=== PATIENT | male | born 1975 | race Caucasian/White ===

== ENCOUNTER 2020-06-02 09:55 | Emergency (ER) | payer SELFPAY ==
[2020-06-02 10:07] VITALS: BP 143/93; PULSE 104; RESP 16; TEMP 36.2; O2SAT 100
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
== END 2020-06-02 11:00 | disposition home or self-care (01) ==
PROVIDERS: Emergency Provider Nurse Practitioner
DX: L97.512 Non-pressure chronic ulcer of other part of right foot with fat layer exposed (principal); L03.119 Cellulitis of unspecified part of limb; H40.9 Unspecified glaucoma; I10 Essential (primary) hypertension
CPT/HCPCS: 99213; G0463

== ENCOUNTER 2021-01-19 10:59 | Emergency (ER) | payer SELFPAY ==
[2021-01-19 11:11] VITALS: BP 139/91; PULSE 96; RESP 16; TEMP 36.2; O2SAT 98
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
== END 2021-01-19 11:57 | disposition home or self-care (01) ==
PROVIDERS: Emergency Provider Nurse Practitioner
DX: S81.802A Unspecified open wound, left lower leg, initial encounter (principal); X16.XXXA Contact with hot heating appliances, radiators and pipes, initial encounter; S61.402A Unspecified open wound of left hand, initial encounter; W25.XXXA Contact with sharp glass, initial encounter; H40.9 Unspecified glaucoma
CPT/HCPCS: 99213; G0463

== ENCOUNTER 2021-03-30 02:14 | Inpatient (IN) | payer MEDICAID, SELFPAY ==
--- NOTE | ~2021-03-30 | XR_ITS ---
EXAMINATION: XR foot LT min 3V DATE: 03/30/2021 02:35 INDICATION: Left foot pain. Infection. TECHNIQUE: Dorsoplantar, two oblique and lateral views of the left foot were obtained. COMPARISON: None. FINDINGS: Bone alignment is normal. No fracture. Lucent likely residual fixation screw tract projects over the distal tibia and fibula. Moderate osteoarthritis at the first metatarsophalangeal joint. Additional m ild polyarticular osteoarthritis at many of the remaining joints in the mid and forefoot. Diffuse sof t tissue swelling about the left foot. There is lucency projecting over the plantar soft tissues at t he first proximal phalanx suggesting a skin ulceration. No underlying cortical erosion or periosteal reaction to suggest osteomyelitis. IMPRESSION: 1. No findings to suggest osteomyelitis. 2. Polyarticular osteoarthritis, moderate at the first metatarsophalangeal joint and otherwise mild a t multiple joints the mid and forefoot. Reviewed, dictated and finalized at location A. IMPRESSION: 1. No findings to suggest osteomyelitis. 2. Polyarticular osteoarthritis, moderate at the first metatarsophalangeal join t and otherwise mild at multiple joints the mid and forefoot.
--- NOTE | ~2021-03-30 | CT_ITS ---
EXAMINATION: CT foot LT wo con DATE: 03/30/2021 04:46 INDICATION: Osteomyelitis with pain and ulceration at the great toe. TECHNIQUE: High resolution computed tomography (CT) of the left foot was performed without intravenou s contrast. Additional sagittal and coronal reconstructions were performed. Automated exposure contro l and iterative reconstruction technique were employed. The dose-length product was 449.06 mGy-cm. COMPARISON: Left foot radiographs dated 03/30/2021 FINDINGS: Bone alignment is normal. No fracture. Lucent screw tract extending obliquely across the lateral mall eolus into the distal tibia suggesting fixation for old trauma. Small amounts of heterotopic ossifica tion are seen along the deltoid ligament medially along the anterior talofibular and anterior and pos terior inferior tibiofibular ligaments suggesting sequela of chronic sprains. Achilles and plantar ca lcaneal enthesophytes. Polyarticular osteoarthritis, moderate severity at the first metatarsophalange al joint and mild at multiple additional joints in the mid and forefoot. Hypertrophic change at the f irst metatarsophalangeal joint along with a large dorsal sided osteophyte suggesting hallux rigidus w ith decreased range of motion. There appears be a skin ulceration plantar to the base of the first pr oximal phalanx. There is also loss of the nail with deep ulceration at the nailbed which closely appr oaches the surface of the bone. No cortical erosions or periosteal reaction to more specifically sugg est osteomyelitis. No radiopaque foreign bodies or soft tissue gas. IMPRESSION: 1. Deep ulceration at the nailbed of the distal phalanx of the great toe which closely approaches the bone but without evident cortical erosion or periosteal reaction to more specifically suggest osteom yelitis. 2. Old posttraumatic and postoperative changes at the left ankle. 3. Polyarticular osteoarthritis, moderate severity at the first metatarsophalangeal joint with likely secondary hallux rigidus. Reviewed, dictated and finalized at location A. IMPRESSION: 1. Deep ulceration at the nailbed of the distal phalanx of the great toe which closely approaches the bone but without evident cortical erosion or periosteal reaction to more specifically suggest osteomyelitis. 2. Old posttraumatic and postoperative changes at the left ankle. 3. Polyarticular osteoarthritis, moderate severity at the first metatarsophalan geal joint with likely secondary hallux rigidus.
[2021-03-30 02:17] VITALS: BP 165/110; PULSE 103; RESP 16; TEMP 36.8; O2SAT 100
--- NOTE | 2021-03-30 02:29 | PC.NURSE ---
X-ray to room at this time.
--- NOTE | 2021-03-30 02:41 | ED.EXTPRO ---
HPI - Extremity Problem General Chief complaint: Extremity Problem,Nontraumatic Stated complaint: left foot infection Time Seen by Provider: 03/30/21 02:17 Source: patient Mode of arrival: ambulatory Limitations: no limitations History of Present Illness HPI Narrative: Patient is a 45-year-old male complaining of left foot pain, swelling and redness that started 3 weeks ago but worse the past few days. Patient denies any injury to the area. Patient denies any calf pain or swelling. Patient denies any chest pain or shortness of breath. Patient denies fever or chills. Related Data Home Medications Medication Instructions Recorded Confirmed No Home Medications 03/30/21 03/30/21 Allergies Allergy/AdvReac Type Severity Reaction Status Date / Time No Known Allergies Allergy Verified 03/30/21 02:20 Review of Systems Review of Systems: All systems reviewed & are unremarkable except as noted in HPI and below Constitutional: Constitutional: Denies body ache(s), Denies chills, Denies excessive sweating, Denies fatigue, Denies fever(s), Denies headache(s), Denies lethargy, Denies malaise, Denies weakness and Denies weight loss Eyes: Eyes: Denies blurry vision, Denies change in vision and Denies loss of vision ENT: Denies dizziness, Denies ear discharge, Denies headache(s), Denies lip swelling, Denies epistaxis, Denies nasal congestion, Denies neck pain, Denies throat swelling and Denies tongue swelling Cardiovascular: Cardiovascular: Denies chest pain, Denies chest pain at rest, Denies chest pain with activity, Denies diaphoresis, Denies rapid heart rate, Denies edema, Denies irregular heart rhythm, Denies lightheadedness, Denies palpitations, Denies dyspnea and Denies dyspnea on exertion Respiratory: Respiratory: Denies chest congestion, Denies cough, Denies hemoptysis, Denies dyspnea and Denies dyspnea on exertion Gastrointestinal: Gastrointestinal: Denies abdominal pain, Denies melena, Denies hematochezia, Denies diarrhea, Denies nausea, Denies vomiting and Denies hematemesis Musculoskeletal: Musculoskeletal: Denies abnormal gait, Denies deformity, Denies limited range of motion, Denies neck pain and Denies numbness Neurologic: Denies Abnormal speech present, Denies abnormal gait, Denies confusion, Denies dizziness, Denies headache(s), Denies focal weakness, Denies loss of vision, Denies numbness, Denies Other visual disturbances, Denies Sensory deficit (Neuro) and Denies weakness Psychiatric: Psychiatric: Denies confusion, Denies depression, Denies auditory hallucinations, Denies homicidal ideation and Denies suicidal ideation Endocrine: Endocrine: Denies cold intolerance, Denies excessive sweating, Denies fatigue, Denies heat intolerance and Denies palpitations Hematologic/Lymphatic: Hematologic/Lymphatic: Denies easy bleeding and Denies easy bruising Allergic/Immunologic: Allergic/Immunologic: Denies lip swelling, Denies throat swelling and Denies tongue swelling PMFSH Past Medical History Medical History (Updated 03/30/21 @ 03:35 by Colten Basilio MD) Glaucoma Social History Social History Gender identity (if verbalized by the patient): Male Comments Past medical history: None Family history: None Social history: Non-smoker no EtOH or drug use Exam Const: General: cooperative, healthy appearing, comfortable, no acute distress, well developed, alert and awake; No confusion Orientation/consciousness: oriented to person, oriented to place, oriented to time, patient oriented x3 and No confusion Limitations: no limitations HENMT: Head: normal to inspection, normocephalic and atraumatic Ears: hearing grossly normal bilaterally, TM normal on the right and TM normal on the left General nose exam: Normal external nose present, Normal nares present and No nasal discharge present Face and sinus: normal facial exam Mouth: Yes Normal oral and palatal mucosa present, Yes lip normal, Yes tongue normal and Yes or
[2021-03-30 02:53] LABS: Basophils Absolute Auto 0.1 K/mm3 (0.0-0.1); Basophils Percent Auto 0.5 % (0.2-1.2); Eosinophils Absolute Auto 0.2 K/mm3 (0-0.3); Hematocrit 44.5 % (42.0-52.0); Immature Granulocyte Absolute 0.02 K/mm3 (0.00-0.031); Immature Granulocyte Percent A 0.2 % (0-0.5); Lymphocytes Absolute Auto 2.38 K/mm3 (0.9-3.2); Lymphocytes Percent Auto 25.6 % (18.3-44.2); Mean Corpuscular HGB Conc 33.7 g/dl (32-36); Mean Corpuscular Hemoglobin 28.1 pg (26-34); Mean Corpuscular Volume 83.5 fl (80-100); Mean Platelet Volume 9.6 fl (7.4-10.4); Monocytes Absolute Auto 0.8 K/mm3 (0.1-0.6); Monocytes Percent Auto 8.1 % (2.6-8.5); Neutrophils Absolute Auto 5.9 K/mm3 (1.3-6.7); Neutrophils Percent Auto 63.6 % (45.5-73.1); Platelet Count Result 292 k/mm3 (150-375); Red Blood Count 5.33 M/mm3 (4.6-6.20); White Blood Count 9.3 K/mm3 (4.5-10.0)
[2021-03-30 03:01] VITALS: BP 145/93; O2SAT 99
[2021-03-30 03:05] LABS: Anion Gap 10 mmol/L (8-16); Blood Urea Nitrogen 9 mg/dL (9-20); Calcium 9.2 mg/dL (8.4-10.2); Carbon Dioxide 28 mmol/L (22-30); Chloride 97 mmol/L (98-107); Estimated CRCL calculation 142 ml/min; Estimated Glomerular Filt Rate > 60; Glucose 387 mg/dL (75-110); Lactic Acid Reflex 1.3 mmol/L (0.7-2.1); Potassium 4.1 mmol/L (3.4-5.0); Sodium 135 mmol/L (137-145)
[2021-03-30] MEDS: SODIUM CHLORIDE 0.9% IV 1,000 ML 999 ML IV CONT (03:52)
[2021-03-30 04:02] VITALS: BP 145/93; PULSE 99; RESP 16; O2SAT 99
--- NOTE | 2021-03-30 04:13 | PC.NURSE ---
Blood cultures drawn from two separate sites.
--- NOTE | 2021-03-30 04:35 | PC.NURSE ---
pt to CT at this time
--- NOTE | 2021-03-30 04:56 | PM.IMHP ---
H&P: HPI History of Present Illness Date/Time: 03/30/21 04:56 Chief Complaint: TOE WOUND Narrative: THIS IS A 45-YEAR-OLD MALE WITH NO SIGNIFICANT PAST MEDICAL HISTORY HOWEVER PATIENT STATES THAT HE HAS NOT BEEN TO THE DOCTOR IN YEARS. HE PRESENTED TO THE EMERGENCY ROOM DUE TO LEFT 5TH TOE WOUND WITH DISCHARGE AND DISCOLORATION THAT HAS BEEN PRESENT FOR THE LAST COUPLE OF WEEKS PATIENT STATES THAT IT STARTED WITH A WOUND AND IT PROGRESSIVELY GOT SWOLLEN AND A DISCHARGE STARTED TO OOZE. PATIENT STATES THAT HE HAS BEEN VERY THIRSTY HAS HAD SIGNIFICANT WEIGHT LOSS IN THE LAST YEAR OR SO AND HAS HAD DECREASED APPETITE HE MIGHT HAVE HAD SOME CHILLS WELL NO NAUSEA NO VOMITING NO DIARRHEA NO ABDOMINAL PAIN NO COUGH NO SPUTUM PRODUCTION NO SHORTNESS OF BREATH. Review of Systems Review of Systems: Narrative: TOE WOUND SWELLING DISCOLORATION AND DISCHARGE Constitutional: Constitutional: Reports chills, Denies fatigue, Reports fever(s), Denies lethargy and Denies malaise Eyes: Eyes: Denies change in vision ENT: Denies nasal congestion, Denies nasal discharge and Denies nasal obstruction Cardiovascular: Cardiovascular: Denies irregular heart rhythm, Denies claudication, Denies leg edema, Denies lightheadedness, Denies radiating jaw, neck or arm pain, Denies palpitations, Denies dyspnea and Denies dyspnea on exertion Respiratory: Respiratory: Denies cough and Denies dyspnea Gastrointestinal: Gastrointestinal: Denies abdominal pain, Denies diarrhea, Denies nausea and Denies vomiting Genitourinary: Genitourinary: Reports no additional male genitourinary complaints Musculoskeletal: Musculoskeletal: Reports joint swelling Comments: LEFT 5TH TOE SWELLING AND DISCHARGE Integumentary/Breasts: Skin/Breast: Reports erythema and Reports skin ulcer Neurologic: Reports system reviewed and no additional complaints, except as documented Psychiatric: Psychiatric: Reports no additional psychiatric complaints Endocrine: Comments: THIRST, WEIGHT LOSS, POLYURIA. Hematologic/Lymphatic: Hematologic/Lymphatic: Reports no additional hematologic/lymphatic complaints Allergic/Immunologic: Allergic/Immunologic: Reports no additional allergic/immunologic complaints [facility] Past Medical History Medical History (Updated 03/30/21 @ 05:05 by Tremayne Hernandez MD) Glaucoma Social History Social History Alcohol intake: never Substance use: never Gender identity (if verbalized by the patient): Male Spiritual care concerns: No Meds Home Medications and Allergies Home Medications Medication Instructions Recorded Confirmed Type No Home Medications 03/30/21 03/30/21 History Allergies Allergy/AdvReac Type Severity Reaction Status Date / Time No Known Allergies Allergy Verified 03/30/21 02:20 Vital Signs Vital Signs - 24 hr 03/30/21 02:17 03/30/21 04:02 Temperature 98.2 F Pulse Rate 103 H 99 Respiratory Rate 16 16 Blood Pressure 165/110 H 145/93 H Pulse Oximetry 100 99 Exam Narrative: Exam Narrative: PATIENT IS SITTING IN [facility] Const: General: cooperative, comfortable, no acute distress, well developed, alert, awake, ill appearing chronically and other Nutritional Appearance: average body habitus Orientation/consciousness: patient oriented x3 HENMT: Head: normal to inspection, normocephalic and atraumatic Ears: hearing grossly normal bilaterally General nose exam: Normal external nose present Face and sinus: normal facial exam Eyes: General: appearance normal, both eyes and all related structures Alignment and Position: alignment normal Pupils: Equal, round and reactive pupils present EOM: EOMs intact bilaterally Neck: Neck: full ROM, no lymphadenopathy and no JVD Thyroid: thyroid normal Lymphatic: no lymphadenopathy noted Resp: Effort & Inspection: normal respiratory effort and able to speak in complete sentences Auscultation: clear to auscultation bilaterally Cardio: Jugular venous distension:
--- NOTE | 2021-03-30 04:57 | ADMGEN ---
This patient, Kain Montejo, was admitted to [facility] Surg Room 328-01. Patient/family oriented to hospital policies and general routines including ID bracelet, bed and alarms, visiting hours, pain management, procedures, bathroom and other care routines, personal items, smoking policy, room service/diet, and visiting hours. Information on how to activate the Rapid Response Team has been discussed. Patient/Family are encouraged to report perceived risks to care and to ask questions if they do not understand what they are told or what they should do.
[2021-03-30 05:01] VITALS: BP 136/90; PULSE 90; RESP 18; TEMP 36.6; O2SAT 100; BMI 28.8
[2021-03-30] MEDS: AZTREONAM 1 GM in DEXTROSE 5% IN WATER 50 ML 100 ML IVPB ×2 (05:38→12:32)
[2021-03-30] MEDS: LACTATED RINGERS 1,000 ML 150 ML IV CONT (05:38)
[2021-03-30 08:00] LABS: Glucose Point of Care 278 mg/dl (65-105)
[2021-03-30] MEDS: INSULIN ASPART (*BKC) 100 UNITS/ML SUB-Q ×5 (08:42→17:14)
[2021-03-30 09:16] LABS: Hemoglobin A1C 13.5 % (<5.7)
[2021-03-30] MEDS: LACTATED RINGERS 1,000 ML 100 ML IV CONT ×3 (10:20→22:45)
[2021-03-30 11:54] LABS: Glucose Point of Care 276 mg/dl (65-105)
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
--- NOTE | 2021-03-30 13:04 | PCDIET ---
Nutrition consult for Diabetic education. Patient was given Diabetic Management booklet today. We discussed a few food options. Patient just admitted early this morning. Discussed with him, RD would continue education tomorrow. I called Training Designer, who is also aware of consult.
--- NOTE | 2021-03-30 13:24 | WPDINFPN2 ---
Progress Note: A&P Assessment and Plan (1) Cellulitis of foot, left: Code(s): L03.116 - Cellulitis of left lower limb Status: Acute Assessment and Plan: 1. Left foot cellulitis due to #2 2. Acute OM of 5th toe 3. New onset DM REC Ctx #1. If he has toe amputation, convert to oral cefdinir post op. If no surgical resection, then 6 weeks IV Ctx, with no guarantee of cure. Subjective Date/time seen: 03/30/21 13:24 Objective Data Vital Signs Vital Signs: Vital Signs - 24 hr 03/30/21 02:17 03/30/21 03:01 03/30/21 04:02 Temperature 36.8 C Pulse Rate 103 H 99 Respiratory Rate 16 16 Blood Pressure 165/110 H 145/93 H 145/93 H Pulse Oximetry 100 99 99 03/30/21 05:01 Temperature 36.6 C Pulse Rate 90 Respiratory Rate 18 Blood Pressure 136/90 Pulse Oximetry 100 Intake/Output Intake/Output: Intake & Output 03/27/21 03/28/21 03/29/21 03/30/21 23:59 23:59 23:59 23:59 Intake Total 3660 Output Total 700 Balance 2960 Meds/Results Medications: Active Medications Generic Name Dose Route Start Last Admin Trade Name Freq PRN Reason Stop Dose Admin Dextrose 12.5 gm 03/30/21 10:09 Dextrose 50% 25 Gm/50 Ml Syringe IV PUSH PRN PRN Hypoglycemia Protocol Glucagon 1 mg 03/30/21 10:09 Glucagon For Inj 1 Mg Vial IM PRN PRN Hypoglycemia Protocol Glucose 15 gm 03/30/21 10:09 Glucose Oral Gel 15 Gm Of Glucse In 37.5 Gm Tube PO PRN PRN Hypoglycemia Protocol Lactated Ringer's 1,000 mls @ 100 mls/hr 03/30/21 03:40 03/30/21 12:35 Lr - Lactated Ringers Iv IV CONT 100 mls/hr .Q10H ARLEEN Administration Aztreonam 1 gm/ Dextrose 50 mls @ 100 mls/hr 03/30/21 05:00 03/30/21 12:32 IVPB 100 mls/hr Q8H ARLEEN Administration Dextrose 1,000 mls @ 100 mls/hr 03/30/21 10:09 Dextrose 5% 1,000 Ml IVPB PRN PRN Hypoglycemia Protocol Insulin Aspart 5 units 03/30/21 08:00 03/30/21 12:28 Insulin Aspart (*Bkc) 100 Units/Ml 0.05 units/kg (5 units) 5 units SUB-Q Administration [facility] Insulin Aspart 3 - 6 units 03/30/21 12:00 03/30/21 12:28 Insulin Aspart (*Bkc) 100 Units/Ml SUB-Q 4 units [facility] Administration Protocol Insulin Glargine 20 units 03/30/21 21:00 Insulin Glargine (*Bkc) 100 Units/Ml SUB-Q HS [facility] Radiology Results: ITS Impressions Foot X-Ray 03/30/21 07:15 IMPRESSION: 1. No findings to suggest osteomyelitis. 2. Polyarticular osteoarthritis, moderate at the first metatarsophalangeal joint and otherwise mild at multiple joints the mid and forefoot. Foot CT 03/30/21 07:21 IMPRESSION: 1. Deep ulceration at the nailbed of the distal phalanx of the great toe which closely approaches the bone but without evident cortical erosion or periosteal reaction to more specifically suggest osteomyelitis. 2. Old posttraumatic and postoperative changes at the left ankle. 3. Polyarticular osteoarthritis, moderate severity at the first metatarsophalangeal joint with likely secondary hallux rigidus. Labs Labs: Laboratory Results - last 24 hr 03/30/21 03/30/21 03/30/21 02:46 02:46 02:46 WBC 9.3 RBC 5.33 Hgb 15.0 Hct 44.5 MCV 83.5 MCH 28.1 MCHC 33.7 RDW 12.0 Plt Count 292 MPV 9.6 Immature Gran % (Auto) 0.2 Neut % (Auto) 63.6 Lymph % (Auto) 25.6 Craig % (Auto) 8.1 Eos % (Auto) 2.0 Baso % (Auto) 0.5 Lymph # (Auto) 2.38 Craig # (Auto) 0.8 H Eos # (Auto) 0.2 Baso # (Auto) 0.1 Abs Immat Gran (auto) 0.02 Absolute Neuts (auto) 5.9 Absolute Nucleated RBC 0.0 Nucleated RBC % 0.0 Sodium 135 L Potassium 4.1 Chloride 97 L Carbon Dioxide 28 Anion Gap 10 BUN 9 Creatinine 0.60 L Estim Creat Clear Calc 142 Estimated GFR > 60 Glucose 387 H POC Capillary Glucose Hemoglobin A1c Lactic Acid 1.3 Calcium 9.2 03/30/21 03/30/21 03/30/21
[2021-03-30 14:00] VITALS: BP 134/80; PULSE 89; RESP 12; TEMP 37.3; O2SAT 98
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
[2021-03-30 17:03] LABS: Glucose Point of Care 265 mg/dl (65-105)
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
[2021-03-30] MEDS: INSULIN GLARGINE (*BKC) 100 UNITS/ML 20 UNITS SUB-Q (20:58)
[2021-03-30 21:25] LABS: Glucose Point of Care 243 mg/dl (65-105)
[2021-03-30 22:00] VITALS: BP 123/92; PULSE 93; RESP 16; TEMP 37.6; O2SAT 96
[2021-03-30] MEDS: ACETAMINOPHEN 325 MG TABLET 650 MG PO (22:44)
[2021-03-31 06:00] VITALS: BP 132/68; PULSE 88; RESP 16; TEMP 37.2; O2SAT 100
[2021-03-31 06:21] LABS: Hematocrit 39.2 % (42.0-52.0); Hemoglobin 13.5 g/dL (14.0-18.0); Mean Corpuscular HGB Conc 34.4 g/dl (32-36); Mean Corpuscular Hemoglobin 28.1 pg (26-34); Mean Corpuscular Volume 81.7 fl (80-100); Mean Platelet Volume 9.3 fl (7.4-10.4); Platelet Count Result 260 k/mm3 (150-375); Red Cell Distribution Width 11.7 % (11.5-14.5); White Blood Count 9.3 K/mm3 (4.5-10.0)
[2021-03-31 06:37] LABS: Anion Gap 8 mmol/L (8-16); Blood Urea Nitrogen 8 mg/dL (9-20); Calcium 8.4 mg/dL (8.4-10.2); Carbon Dioxide 23 mmol/L (22-30); Chloride 103 mmol/L (98-107); Estimated CRCL calculation 167 ml/min; Estimated Glomerular Filt Rate > 60; Glucose 236 mg/dL (75-110); Magnesium 1.6 mg/dL (1.6-2.3); Potassium 3.8 mmol/L (3.4-5.0); Sodium 134 mmol/L (137-145)
[2021-03-31 07:50] LABS: Glucose Point of Care 230 mg/dl (65-105)
[2021-03-31] MEDS: MAGNESIUM SULF 2 GM/WATER 50ML 2 GM/50 ML BAG IVPB (08:14)
[2021-03-31] MEDS: INSULIN ASPART (*BKC) 100 UNITS/ML SUB-Q ×5 (08:18→17:36)
[2021-03-31] MEDS: LACTATED RINGERS 1,000 ML 100 ML IV CONT (08:20)
[2021-03-31] MEDS: ACETAMINOPHEN 325 MG TABLET 650 MG PO (08:27)
[2021-03-31 10:37] VITALS: O2SAT 98
--- NOTE | 2021-03-31 11:05 | PCDIET ---
Visited patient again this morning. Patient asked more questions today regarding diet. All questions discussed. He has been reading through the diabetic management booklet. I will visit again before discharge.
[2021-03-31 12:02] LABS: Glucose Point of Care 189 mg/dl (65-105)
[2021-03-31 13:34] LABS: Magnesium 1.6 mg/dL (1.6-2.3)
[2021-03-31 14:00] VITALS: BP 143/93; PULSE 90; RESP 20; TEMP 37.3; O2SAT 100
--- NOTE | 2021-03-31 16:29 | PM.PNORT ---
Progress Note: A&P Assessment and Plan (1) Osteomyelitis of toe of left foot: Code(s): M86.9 - Osteomyelitis, unspecified Status: Acute Assessment and Plan: 45-year-old gentleman with history of nonhealing wounds and ulcers bilateral feet, right leg, right elbow. Most recently small toe left foot nonhealing for the past 4 weeks. Patient with undiagnosed diabetes, hemoglobin A1c greater than 13. Discussed condition with the patient. Complications from medical comorbidities of diabetes, neuropathy possible arterial insufficiency reviewed. Mild worsening of appearance of small toe since admission and intravenous antibiotics. Patient desires operative treatment. Discussed nonoperative and operative treatment options with the patient. Risks and benefits of each as well as alternatives were reviewed. All of the patient's questions were answered. The risks of surgery reviewed including but not limited to: Neurovascular damage, wound complication, infection, blood clot, pulmonary embolus, stroke, myocardial infarction, and anesthetic risks up to and including . Continued pain and possible dysfunction were explained. Specific risks of the procedure including later recurrence of deformity. No guarantees were offered. If hardware used, discussed risk of failure/ breakage and possible need for removal. If complications occur, the patient understands the need for further treatment, possible further surgery. Patient verbalizes understanding and wishes to proceed. PLAN: Debridement left diabetic foot infection / ulcer, amputation left small toe. (2) Ulcer of left fifth toe due to diabetes mellitus: Code(s): E11.621 - Type 2 diabetes mellitus with foot ulcer; L97.529 - Non-pressure chronic ulcer of other part of left foot with unspecified severity Status: Acute (3) Type 2 diabetes mellitus: Qualifiers: Diabetes mellitus assisted insulin use: without assisted use Diabetes mellitus complication status: with skin complications Diabetes mellitus complication detail: with foot ulcer Qualified Code(s): E11.621 - Type 2 diabetes mellitus with foot ulcer; L97.509 - Non-pressure chronic ulcer of other part of unspecified foot with unspecified severity Code(s): E11.9 - Type 2 diabetes mellitus without complications Status: Acute Subjective Subjective Date/Time Seen: 03/31/21 16:29 Principal diagnosis: Left diabetic foot infection with osteomyelitis Interval history: patient seen and examined. Orthopedic consultation, assessment and plan reviewed. Left foot radiographs and left foot CT scan reviewed. Patient states small toe slightly worse compared to presentation to the emergency room. Denies pain. Review of Systems Constitutional: Constitutional: Denies chills and Denies fever(s) Eyes: Eyes: Reports no additional eye complaints and Denies change in vision ENT: Reports system reviewed and no additional complaints, except as documented and Reports Normal hearing present Cardiovascular: Cardiovascular: Denies chest pain, Denies diaphoresis, Denies leg ulcers and Denies dyspnea on exertion Respiratory: Respiratory: Reports no additional respiratory complaints, Denies cough and Denies dyspnea on exertion Gastrointestinal: Gastrointestinal: Reports no additional gastrointestinal complaints, Denies abdominal pain, Denies constipation, Denies nausea and Denies vomiting Genitourinary: Genitourinary: Reports no additional male genitourinary complaints, Denies hematuria and Denies urinary frequency Musculoskeletal: Musculoskeletal: Reports no additional musculoskeletal complaints and Reports as per HPI Integumentary/Breasts: Skin/Breast: Reports as per HPI, Reports lesions, Reports new lesions and Reports skin ulcer Neurologic: Reports Normal hearing present Endocrine: Endocrine: Reports no additional endocrine complaints, Denies change in body appearance, Denies excessive sweating, Denies p
[2021-03-31 17:25] LABS: Glucose Point of Care 260 mg/dl (65-105)
--- NOTE | 2021-03-31 17:46 | PM.IMPN ---
Progress Note: A&P Assessment and Plan (1) Ulcer of left fifth toe due to diabetes mellitus: Code(s): E11.621 - Type 2 diabetes mellitus with foot ulcer; L97.529 - Non-pressure chronic ulcer of other part of left foot with unspecified severity Status: Acute Assessment and Plan: Patient presents with wound to left 5th toe. 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 Wounds started from blisters to some of his toes after wearing new sandals [place]. Imaging shows evidence of acute osteomyelitis to left 5th toe. Appreciate orthopedic surgery recommendations. Dr Ladd plans for OR in the AM 7/ for debridement and L 5th toe amputation. Appreciate infectious disease recommendations. He was started on aztreonam and vancomycin on admission which Dr Izaguirre has consolidated to monotherapy with IV Rocephin (day 2). Blood cultures pending with no growth to date. Will continue working on tight glycemic control. Local wound care until surgery. (2) Cellulitis of foot, left: Code(s): L03.116 - Cellulitis of left lower limb Status: Acute Assessment and Plan: Secondary to above, see above. Some GI upset with soft BM may be related to antibiotics. Added probiotic. (3) Type 2 diabetes mellitus: Qualifiers: Diabetes mellitus veterinary surgeon insulin use: without veterinary surgeon use Diabetes mellitus complication status: with skin complications Diabetes mellitus complication detail: with foot ulcer Qualified Code(s): E11.621 - Type 2 diabetes mellitus with foot ulcer; L97.509 - Non-pressure chronic ulcer of other part of unspecified foot with unspecified severity Code(s): E11.9 - Type 2 diabetes mellitus without complications Status: Acute Assessment and Plan: New diagnosis. Likely been ongoing for a period of time given his significant neuropathy. Hgb A1c 13.5%. Detailed discussion held regarding his new diagnosis including the importance of blood glucose monitoring, establishing care with a PCP, and insulin use. Appreciate diabetic educator consultation as well. Continue basal-bolus regimen with Lantus and Novolog and increase as needed. Continue to monitor with accu-cheks and adjust treatment as needed, cover with SSI. NPO at midnight for surgery but since he is going to OR early, plan to continue Lantus this evening (at a decreased dose) since his sugars have been so high. Discussed the importance of tight glycemic control to help promote wound healing. (4) Weight loss: Code(s): R63.4 - Abnormal weight loss Status: Acute Assessment and Plan: Suspect related to undiagnosed/untreated diabetes. No abdominal pain/nausea/vomiting. Subjective Date/time seen: 03/31/21 17:00 Interval history: Mr. Montejo is a pleasant 45yo M admitted with left 5th toe OM and newly diagnosed diabetes. Feels okay today, no acute events overnight. Didn't sleep much last night otherwise offers no complaints. Denies chest pain, shortness of breath, nausea or vomiting. Says he has a bit of stomach upset that he has a hard time describing - not abd pain/cramping or nausea but had a loose BM this afternoon. Review of Systems Review of Systems: All systems reviewed & are unremarkable except as noted in HPI and below Exam Narrative: Exam Narrative: General: Male resting comfortably supine in bed in no acute distress. HEENT: Normocephalic, EOMI, oral mucosa moist. Cardiovascular: Rate and rhythm are regular. Respiratory: Lungs clear to auscultation bilaterally. Respirations even and non-labored. Tolerating room air. Abdomen: Soft, non-tender, non-distended, bowel sounds present. Extremities: L foot dressing by surgery not removed for my exam today, wound underneath as descri
[2021-03-31] MEDS: SACCHAROMYCES BOULARDII 250 MG CAPSULE PO (18:55)
[2021-03-31 20:00] VITALS: PULSE 96; RESP 18; O2SAT 100
[2021-03-31] MEDS: INSULIN GLARGINE (*BKC) 100 UNITS/ML 15 UNITS SUB-Q (21:16)
[2021-03-31 21:38] LABS: Glucose Point of Care 219 mg/dl (65-105)
[2021-03-31 21:57] VITALS: BP 142/90; PULSE 96; RESP 18; TEMP 36.8; O2SAT 100
[2021-04-01] VITALS (14 sets, daily range): BP systolic 106–151; BP diastolic 67–99; PULSE 78–96; RESP 12–20; TEMP 36.2–37.1; O2SAT 96–100
[2021-04-01 06:15] LABS: Alanine Aminotransferase 11 U/L (4-50); Albumin Level 3.4 g/dL (3.5-5.1); Alkaline Phosphatase 67 U/L (38-126); Anion Gap 6 mmol/L (8-16); Aspartate Amino Transferase 14 U/L (17-59); Bilirubin,Total 0.7 mg/dL (0.2-1.3); Blood Urea Nitrogen 9 mg/dL (9-20); Calcium 8.5 mg/dL (8.4-10.2); Carbon Dioxide 27 mmol/L (22-30); Chloride 104 mmol/L (98-107); Estimated CRCL calculation 142 ml/min; Estimated Glomerular Filt Rate > 60; Glucose 189 mg/dL (75-110); Magnesium 1.8 mg/dL (1.6-2.3); Potassium 3.8 mmol/L (3.4-5.0); Sodium 137 mmol/L (137-145)
[2021-04-01 06:28] LABS: Hematocrit 41.9 % (42.0-52.0); Hemoglobin 13.8 g/dL (14.0-18.0); Mean Corpuscular HGB Conc 32.9 g/dl (32-36); Mean Corpuscular Hemoglobin 27.4 pg (26-34); Mean Corpuscular Volume 83.3 fl (80-100); Mean Platelet Volume 9.4 fl (7.4-10.4); Platelet Count Result 287 k/mm3 (150-375); Red Blood Count 5.03 M/mm3 (4.6-6.20); Red Cell Distribution Width 12.1 % (11.5-14.5); White Blood Count 7.3 K/mm3 (4.5-10.0)
--- NOTE | 2021-04-01 07:12 | WPDHPUPDATE1 ---
History and Physical Update Update Date/Time: 04/01/21 07:12 History and Physical has been reviewed, including an updated exam of the patient. There are NO changes in the patient's condition. Risks, benefits, and alternatives have been discussed and questions answered. Patient agrees to proceed with procedure.
[2021-04-01 07:49] LABS: Glucose Point of Care 201 mg/dl (65-105)
--- NOTE | 2021-04-01 07:57 | WPDANESEPPF ---
Anes - Initial Pre Proc Eval Procedure: Operation Date: 04/01/21 09:00 Proposed Procedures p Debridement Left Diabetic Foot With Amputation Small Toe - Akbar Ladd MD Date/Time: 04/01/21 07:57 Surgeon: CIARA Ibrahim Pre Op Diagnosis: left foot cellulitis, hyperglycemia Patient Data Age: 45 Gender: M Height: 1.83 m Weight: 96.2 kg Last Vital Signs Temp 36.2 C L 04/01/21 07:38 Pulse 87 04/01/21 07:38 Resp 16 04/01/21 07:38 BP 134/72 04/01/21 07:38 Pulse Ox 100 04/01/21 07:38 Allergies Allergy/AdvReac Type Severity Reaction Status Date / Time No Known Allergies Allergy Verified 03/30/21 09:54 Home Medications Medication Instructions Recorded Confirmed Type No Home Medications 03/30/21 03/30/21 History Laboratory Tests 03/31/21 03/31/21 03/31/21 06:01 12:00 17:20 WBC RBC Hgb Hct MCV MCH MCHC RDW Plt Count MPV Sodium Potassium Chloride Carbon Dioxide Anion Gap BUN Creatinine Estim Creat Clear Calc Estimated GFR Glucose POC Capillary Glucose 189 mg/dl H mg/dl 260 mg/dl H mg/dl (65-105) (65-105) Calcium Magnesium 1.6 mg/dL mg/dL (1.6-2.3) Total Bilirubin AST ALT Alkaline Phosphatase Total Protein Albumin 03/31/21 04/01/21 04/01/21 21:14 05:44 05:44 WBC 7.3 K/mm3 K/mm3 (4.5-10.0) RBC 5.03 M/mm3 M/mm3 (4.6-6.20) Hgb 13.8 g/dL L g/dL (14.0-18.0) Hct 41.9 % L % (42.0-52.0) MCV 83.3 fl fl (80-100) MCH 27.4 pg pg (26-34) MCHC 32.9 g/dl g/dl (32-36) RDW 12.1 % % (11.5-14.5) Plt Count 287 k/mm3 k/mm3 (150-375) MPV 9.4 fl fl (7.4-10.4) Sodium 137 mmol/L mmol/L (137-145) Potassium 3.8 mmol/L mmol/L (3.4-5.0) Chloride 104 mmol/L mmol/L (98-107) Carbon Dioxide 27 mmol/L mmol/L (22-30) Anion Gap 6 mmol/L L mmol/L (8-16) BUN 9 mg/dL mg/dL (9-20) Creatinine 0.60 mg/dL L mg/dL (0.7-1.3) Estim Creat Clear Calc 142 ml/min ml/min Estimated GFR > 60 (59 - ) Glucose 189 mg/dL H mg/dL (75-110) POC Capillary Glucose 219 mg/dl H mg/dl (65-105) Calcium 8.5 mg/dL mg/dL (8.4-10.2) Magnesium 1.8 mg/dL mg/dL (1.6-2.3) Total Bilirubin 0.7 mg/dL mg/dL (0.2-1.3) AST 14 U/L L U/L (17-59) ALT 11 U/L U/L (4-50) Alkaline Phosphatase 67 U/L U/L (38-126) Total Protein 7.0 g/dL g/dL (6.3-8.2) Albumin 3.4 g/dL L g/dL (3.5-5.1) 04/01/21 07:46 WBC RBC Hgb Hct MCV MCH MCHC RDW Plt Count MPV Sodium Potassium Chloride Carbon Dioxide Anion Gap BUN Creatinine Estim Creat Clear Calc Estimated GFR Glucose POC Capillary Glucose 201 mg/dl H mg/dl (65-105) Calcium Magnesium Total Bilirubin AST ALT Alkaline Phosphatase Total Protein Albumin Patient hx anesthesia problems: none Family hx anesthesia problems: none PMFSH Past Medical History Medical History Callus of foot Glaucoma Osteomyelitis of toe of left foot Surgical History Surgical History (Updated 04/01/21 @ 07:57 by Andrew Luke MD) History of ankle surgery Social History Social History Social History: Patient works for a [employer]
[2021-04-01] MEDS: LACTATED RINGERS 1,000 ML 30 ML IV CONT (08:00)
[2021-04-01] MEDS: BUPIVACAINE HCL 0.5% PF 30 ML VIAL INFILTRATE (09:30)
--- NOTE | 2021-04-01 10:11 | W.PM.PROC2 ---
Procedure Note - Detailed Date of Procedure 04/01/21 Pre-op Diagnosis left foot cellulitis, hyperglycemia, Osteomyelitis small toe, diabetic foot ulcer Post-op Diagnosis same Procedure Performed left foot 5th ray amputation, excisional debridement of diabetic left foot ulcer x2 including muscle layer 1.5 x 1.1 cm by 0.5 cm depth and 0.5 x 0.5 cm. Surgeon Akbar Ladd MD Pediatric Sports Medicine Specialist telecom assistant Anesthesia general Indications 45-year-old gentleman with newly diagnosed and untreated diabetes and peripheral neuropathy admitted with left small toe osteomyelitis and multiple diabetic foot ulcers. No improvement with course of intravenous antibiotics. Presents now for operative treatment. Findings Wet gangrene and osteomyelitis of the left small toe. 1.5 x 1.1 x 0.5 cm ulcer plantar hallux involving the sub fascial muscle layer, 0.5 x 0.5 x 0.2 cm ulcer plantar heel. Large callus right medial hallux. Description of Procedure What was done: Patient identified in the preoperative holding. Informed consent given. Operative extremity marked. Patient received intravenous antibiotics. Patient brought to the operating room where underwent general anesthetic by anesthesia team. Positioned supine on operating room table. Time-out performed confirming the patient, site of the surgery and the plan. left foot prepped draped usual sterile surgical fashion using a Betadine prep solution. The small toe was nearly completely involved with wet gangrene and osteomyelitis. In order to provide soft tissue coverage a ray amputation was indicated. A longitudinal incision made over the dorsal lateral aspect of the distal 5th metatarsal of the left foot with a 15 blade knife. The toe was then ellipsed. Dissection carried down to the metatarsal and retractors placed. Bone cutter used to transect the 5th metatarsal in the midportion. The metatarsal and toe were then dissected from the surrounding soft tissue and brought out is a single specimen which was passed off. Any devitalized or infected tissue was also sharply debrided. Bleeding was controlled with electrocautery. Wound thoroughly irrigated with antibiotic solution and skin approximated with 2 0 Prolene interrupted suture. A 15 blade knife used to debride sharply the plantar hallux and plantar heel ulcers including skin, subcutaneous tissue and muscle. Any nonviable or devitalized tissue was sharply excised and passed off. Wounds thoroughly irrigated. Small bone cutter was used to trim the excess nail growth from toes 2 through 4. Fifteen blade knife used to debride the callus from the right foot hallux medial aspect down to healthy tissue. Small bone cutter used to trim toenails 2 through 5. Sterile dressing applied. The patient was then woken from anesthesia, extubated and taken to the recovery room in stable condition. All sponge, needle, instrument counts were correct at the end of the case. Implants None Estimated Blood Loss 20 Tourniquet Time 0 Urine Output 700 Drains No Packing Yes Pathology yes ( left 5th ray) Complications None Condition stable Disposition PACU
[2021-04-01] MEDS: KCL 20 MEQ/D5/0.45% SOD CHL 1,000 ML 80 ML IV CONT ×2 (11:32→23:28)
--- NOTE | 2021-04-01 11:46 | PC.NURSE ---
To OR per bed at 0730, IV saline locked. Report given to SURAJ Street.
--- NOTE | 2021-04-01 11:47 | PC.NURSE ---
Returned from OR per bed at 1050. Report received from SURAJ Alfredo.
[2021-04-01 11:58] LABS: Glucose Point of Care 210 mg/dl (65-105)
[2021-04-01 12:02] LABS: Glucose Point of Care 202 mg/dl (65-105)
--- NOTE | 2021-04-01 12:25 | PM.IMPN ---
Progress Note: A&P Assessment and Plan (1) Ulcer of left fifth toe due to diabetes mellitus: Code(s): E11.621 - Type 2 diabetes mellitus with foot ulcer; L97.529 - Non-pressure chronic ulcer of other part of left foot with unspecified severity Status: Acute Assessment and Plan: Patient presents with wound to left 5th toe. He noted wound a few weeks ago, acutely worsening over last 1 week MOLD SANDER. Wounds started from blisters to some of his toes after wearing new sandals while on [place] the river. CT showed evidence of acute osteomyelitis to left 5th toe. He just returned from PACU POD#0 s/p left 5th toe amputation, excisional debridement of 2 other left foot ulcers and debridement of large callus medial right great toe. Appreciate infectious disease recommendations. Continue IV Rocephin (day 3). Blood cultures pending with no growth to date. Will continue working on tight glycemic control. Wound care, weight bearing status, PT/OT per ortho surgery recommendations. (2) Cellulitis of foot, left: Code(s): L03.116 - Cellulitis of left lower limb Status: Acute Assessment and Plan: Secondary to above, see above. Some GI upset with soft BM may be related to antibiotics. Added probiotic. (3) Type 2 diabetes mellitus: Qualifiers: Diabetes mellitus intermediate card tender insulin use: without detention use Diabetes mellitus complication status: with skin complications Diabetes mellitus complication detail: with foot ulcer Qualified Code(s): E11.621 - Type 2 diabetes mellitus with foot ulcer; L97.509 - Non-pressure chronic ulcer of other part of unspecified foot with unspecified severity Code(s): E11.9 - Type 2 diabetes mellitus without complications Status: Acute Assessment and Plan: New diagnosis. Likely been ongoing for a period of time given his significant neuropathy. Hgb A1c 13.5%. Detailed discussion held regarding his new diagnosis including the importance of blood glucose monitoring, establishing care with a PCP, and insulin use. Appreciate peer educator consultation as well. Continue basal-bolus regimen with Lantus and Novolog, increase today. Continue to monitor with accu-cheks and adjust treatment as needed, cover with SSI. Discussed the importance of tight glycemic control to help promote wound healing. (4) Weight loss: Code(s): R63.4 - Abnormal weight loss Status: Acute Assessment and Plan: Suspect related to undiagnosed/untreated diabetes. No abdominal pain/nausea/vomiting. Subjective Date/time seen: 04/01/21 1145 Interval history: Mr. Montejo is a pleasant 45yo M admitted with left 5th toe OM and newly diagnosed diabetes. He is seen shortly after returning from the OR, reports he is feeling okay. He is tired but not in any pain, denies nausea or vomiting. No chest pain. Clear liquid tray at his bedside table but he is not hungry yet. No other complaints at this time. Review of Systems Review of Systems: All systems reviewed & are unremarkable except as noted in HPI and below Exam Narrative: Exam Narrative: General: Male resting comfortably supine in bed in no acute distress. HEENT: Normocephalic, EOMI, oral mucosa moist. Cardiovascular: Rate and rhythm are regular. Respiratory: Lungs clear to auscultation bilaterally. Respirations even and non-labored. Tolerating room air. Abdomen: Soft, non-tender, non-distended, bowel sounds present. Extremities: Dressings to left and right feet are not removed during my exam as they were just dressed in surgery. Neuro: Awake and alert; answering questions appropriately. No focal neurological deficits. Speech is clear. Objective Data Vital Signs Vital Signs: Last Vital Signs Temp 97.9 F 04/01/21 12:35 Pulse 82 07/0
[2021-04-01] MEDS: ONDANSETRON INJ 4 MG/2 ML VIAL IV PUSH (12:44)
[2021-04-01] MEDS: INSULIN ASPART (*BKC) 100 UNITS/ML SUB-Q ×3 (12:44→17:48)
[2021-04-01 17:35] LABS: Glucose Point of Care 241 mg/dl (65-105)
[2021-04-01] MEDS: SACCHAROMYCES BOULARDII 250 MG CAPSULE PO (17:49)
[2021-04-01] MEDS: INSULIN ASPART (*BKC) 100 UNITS/ML 8 UNITS SUB-Q (17:49)
[2021-04-01] MEDS: DOCUSATE SODIUM 100 MG CAPSULE PO (17:49)
[2021-04-01] MEDS: INSULIN GLARGINE (*BKC) 100 UNITS/ML 25 UNITS SUB-Q (21:48)
[2021-04-01] MEDS: HYDROcodone/acetaminophen (*CRX) 5-325 MG TABLET 1 TAB PO (21:48)
[2021-04-01] MEDS: MAGNESIUM OXIDE 200 MG TABLET PO (21:48)
[2021-04-01 22:13] LABS: Glucose Point of Care 207 mg/dl (65-105)
[2021-04-02 03:50] VITALS: BP 129/80; PULSE 89; RESP 20; TEMP 36.4; O2SAT 98
[2021-04-02 06:11] LABS: Basophils Percent Auto 0.3 % (0.2-1.2); Eosinophils Absolute Auto 0.1 K/mm3 (0-0.3); Hematocrit 40.8 % (42.0-52.0); Hemoglobin 14.1 g/dL (14.0-18.0); Immature Granulocyte Absolute 0.05 K/mm3 (0.00-0.031); Immature Granulocyte Percent A 0.5 % (0-0.5); Lymphocytes Absolute Auto 1.76 K/mm3 (0.9-3.2); Lymphocytes Percent Auto 16.7 % (18.3-44.2); Mean Corpuscular HGB Conc 34.6 g/dl (32-36); Mean Corpuscular Hemoglobin 28.3 pg (26-34); Mean Corpuscular Volume 81.8 fl (80-100); Mean Platelet Volume 8.9 fl (7.4-10.4); Monocytes Percent Auto 9.7 % (2.6-8.5); Neutrophils Absolute Auto 7.6 K/mm3 (1.3-6.7); Neutrophils Percent Auto 71.8 % (45.5-73.1); Platelet Count Result 293 k/mm3 (150-375); Red Blood Count 4.99 M/mm3 (4.6-6.20); Red Cell Distribution Width 11.9 % (11.5-14.5); White Blood Count 10.5 K/mm3 (4.5-10.0)
[2021-04-02 06:25] LABS: Anion Gap 6 mmol/L (8-16); Blood Urea Nitrogen 7 mg/dL (9-20); Calcium 8.3 mg/dL (8.4-10.2); Carbon Dioxide 24 mmol/L (22-30); Chloride 105 mmol/L (98-107); Estimated CRCL calculation 167 ml/min; Estimated Glomerular Filt Rate > 60; Glucose 192 mg/dL (75-110); Magnesium 1.7 mg/dL (1.6-2.3); Potassium 3.8 mmol/L (3.4-5.0); Sodium 135 mmol/L (137-145)
[2021-04-02 08:00] VITALS: BP 108/79; PULSE 89; RESP 16; TEMP 37.3; O2SAT 99
[2021-04-02] MEDS: DOCUSATE SODIUM 100 MG CAPSULE PO (08:07)
[2021-04-02] MEDS: SACCHAROMYCES BOULARDII 250 MG CAPSULE PO (08:07)
[2021-04-02] MEDS: MAGNESIUM OXIDE 200 MG TABLET PO (08:07)
[2021-04-02] MEDS: INSULIN ASPART (*BKC) 100 UNITS/ML 8 UNITS SUB-Q ×2 (08:47→12:43)
[2021-04-02] MEDS: INSULIN ASPART (*BKC) 100 UNITS/ML SUB-Q (08:47)
[2021-04-02 08:53] LABS: Glucose Point of Care 204 mg/dl (65-105)
--- NOTE | 2021-04-02 09:15 | WPDANESPN ---
Anes - Prog Note Post-Op Date/Time: 04/02/21 09:15 Cardiovascular status: normal Respiratory status: normal Airway patency: baseline Mental status: baseline Post-Op hydration status: normal Vital Signs: Last Vital Signs Temp 97.5 F L 04/02/21 03:50 Pulse 89 04/02/21 03:50 Resp 20 04/02/21 03:50 BP 129/80 04/02/21 03:50 Pulse Ox 98 04/02/21 03:50 Pain Score (VAS): 0 I/O: Intake & Output 04/01/21 04/02/21 04/02/21 23:59 07:59 15:59 Intake Total 1840 500 700 Output Total 450 Balance 1390 500 700 Laboratory Tests 04/02/21 05:47 04/02/21 05:47 04/01/21 04/01/21 04/01/21 10:39 11:53 17:33 WBC RBC Hgb Hct MCV MCH MCHC RDW Plt Count MPV Immature Gran % (Auto) Neut % (Auto) Lymph % (Auto) [place] % (Auto) Eos % (Auto) Baso % (Auto) Lymph # (Auto) [place] # (Auto) Eos # (Auto) Baso # (Auto) Abs Immat Gran (auto) Absolute Neuts (auto) Absolute Nucleated RBC Nucleated RBC % Sodium Potassium Chloride Carbon Dioxide Anion Gap BUN Creatinine Estim Creat Clear Calc Estimated GFR Glucose POC Capillary Glucose 202 H 210 H 241 H Calcium Magnesium 04/01/21 04/02/21 04/02/21 21:47 05:47 05:47 WBC 10.5 H RBC 4.99 Hgb 14.1 Hct 40.8 L MCV 81.8 MCH 28.3 MCHC 34.6 RDW 11.9 Plt Count 293 MPV 8.9 Immature Gran % (Auto) 0.5 Neut % (Auto) 71.8 Lymph % (Auto) 16.7 L [place] % (Auto) 9.7 H Eos % (Auto) 1.0 Baso % (Auto) 0.3 Lymph # (Auto) 1.76 [place] # (Auto) 1.0 H Eos # (Auto) 0.1 Baso # (Auto) 0.0 Abs Immat Gran (auto) 0.05 H Absolute Neuts (auto) 7.6 H Absolute Nucleated RBC 0.0 Nucleated RBC % 0.0 Sodium 135 L Potassium 3.8 Chloride 105 Carbon Dioxide 24 Anion Gap 6 L BUN 7 L Creatinine 0.50 L Estim Creat Clear Calc 167 Estimated GFR > 60 Glucose 192 H POC Capillary Glucose 207 H Calcium 8.3 L Magnesium 1.7 04/02/21 08:45 WBC RBC Hgb Hct MCV MCH MCHC RDW Plt Count MPV Immature Gran % (Auto) Neut % (Auto) Lymph % (Auto) [place] % (Auto) Eos % (Auto) Baso % (Auto) Lymph # (Auto) [place] # (Auto) Eos # (Auto) Baso # (Auto) Abs Immat Gran (auto) Absolute Neuts (auto) Absolute Nucleated RBC Nucleated RBC % Sodium Potassium Chloride Carbon Dioxide Anion Gap BUN Creatinine Estim Creat Clear Calc Estimated GFR Glucose POC Capillary Glucose 204 H Calcium Magnesium Post-procedural complaints: none Patient Feedback: Patient satisfied with anesthetic care.
--- NOTE | 2021-04-02 09:25 | PM.PNORT ---
Progress Note: A&P Assessment and Plan (1) Osteomyelitis of toe of left foot: Code(s): M86.9 - Osteomyelitis, unspecified Status: Acute Assessment and Plan: postoperative day 1 left 5th ray amputation and debridement of diabetic foot ulcers. Operative findings and treatment reviewed with the patient. Swelling and color improved left foot. Fracture boot for protected weight-bearing. Daily dressing changes with silver gel and transfer with cover gauze. Long-term implications with diabetic foot ulceration reviewed with patient. Stable for discharge from orthopedic standpoint. Follow up in orthopedic office in 2 weeks. (2) Diabetic foot ulcer associated with diabetes mellitus due to underlying condition: Qualifiers: Diabetic foot ulcer location: toe Laterality: left Non-pressure ulcer stage: with necrosis of muscle Qualified Code(s): E08.621 - Diabetes mellitus due to underlying condition with foot ulcer; L97.523 - Non-pressure chronic ulcer of other part of left foot with necrosis of muscle Code(s): E08.621 - Diabetes mellitus due to underlying condition with foot ulcer; L97.509 - Non-pressure chronic ulcer of other part of unspecified foot with unspecified severity Status: Acute Subjective Subjective Date/Time Seen: 04/02/21 09:25 Post Op day: 1 Principal diagnosis: Left small toe osteomyelitis, diabetic foot infection Interval history: patient awake and alert. Mild achy pain lateral side of left foot otherwise comfortable. Tolerating diet. Exam Const: General: cooperative Nutritional Appearance: average body habitus Orientation/consciousness: patient oriented x3 Limitations: no limitations HENMT: Head: normal to inspection Ears: hearing grossly normal bilaterally General nose exam: Normal external nose present Face and sinus: normal facial exam Mouth: Yes moist mucous membranes Teeth and gingiva: dentition normal Eyes: General: appearance normal, both eyes and all related structures Pupils: Equal, round and reactive pupils present EOM: EOMs intact bilaterally Neck: Neck: normal visual inspection Chest: Chest palpation & inspection: normal inspection of the chest Resp: Effort & Inspection: normal respiratory effort and able to speak in complete sentences Cardio: Jugular venous distension: no JVD Neuro: General: patient oriented x3 Cranial nerves: Yes Equal, round and reactive pupils present Extrem: Right lower extremity: foot Details: normal capillary refill, normal to inspection and other (large callus on the medial aspect of the hallux ); no tenderness Left lower extremity: foot Details: normal capillary refill, abnormal to inspection (multiple ulcers- see below ) Details: joint swelling (1st MTP joint ) and erythematous (lateral forefoot ), tenderness Location: of another digit Location: the 4th digit, the 5th digit and at the proximal phalanx, abnormal ROM of toe (limited ROM of the 5th ray. ), vascular exam (palpable ) Details: dorsalis pedis pulse present and motor-sensory exam light-touch normal (mildly decreased ) in all toes Other: Dressing removed left foot. Lateral incision clean dry and intact. Plantar hallux and heel ulcers clean and dry. Swelling improved. Minimal erythema. No active drainage. Right foot medial hallux callus removed. Skin otherwise intact. Good capillary refill in remaining toes. Psych: Appearance: grossly normal and well kempt Affect: normal affect Attitude: cooperative Objective Data Vital Signs Vital Signs: Vital Signs - 24 hr 04/01/21 09:53 04/01/21 10:05 04/01/21 10:20 Temperature 97.1 F L Pulse Rate 88 89 91 Respiratory Rate 12 15 18 Blood Pressure 106/74 133/91 H 133/95 H Pulse Oximetry 96 96 98 04/01/21 10:35 04/01/21 10:50 04/01/21 11:05 Temperature 97.6 F 97.8 F Pulse Rate 86 92 86 Respiratory Rate 18 18 18 Blood Pressure 133/88 151/99 H 140/97 H Pulse Oximetry 98 97 97 04/01/21 11:35 04/01/21 12:
[2021-04-02] MEDS: MAGNESIUM SULF 1 GM/D5W 100 ML 1 GM/100 ML BAG IVPB (10:30)
[2021-04-02] MEDS: SILVERGEL (ELTA) 45 ML 1 APPLIC TOPICAL (11:53)
[2021-04-02 11:59] LABS: Glucose Point of Care 175 mg/dl (65-105)
[2021-04-02 14:00] VITALS: BP 116/64; PULSE 105; RESP 16; TEMP 37.6; O2SAT 100
[2021-04-02 15:20] VITALS: BMI 28.8
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
== END 2021-04-02 17:50 | disposition home or self-care (01) | DRG 305 ==
LOC: ANHED 03:35 → ANH3MEDSUR 04:10
PROVIDERS: Orthopaedic Surgery; Physician Assistant; Admitting Provider Internal Medicine; Emergency Provider Emergency Medicine; Visit Provider Internal Medicine
PROC: 0Y6N0ZF Detachment at Left Foot, Partial 5th Ray, Open Approach (ICD-10-PCS; principal; 2021-04-01 09:00)
DX: E11.52 Type 2 diabetes mellitus with diabetic peripheral angiopathy with gangrene (principal); L97.425 Non-pressure chronic ulcer of left heel and midfoot with muscle involvement without evidence of necrosis; I96 Gangrene, not elsewhere classified; E11.69 Type 2 diabetes mellitus with other specified complication; M86.172 Other acute osteomyelitis, left ankle and foot; E11.621 Type 2 diabetes mellitus with foot ulcer; L97.529 Non-pressure chronic ulcer of other part of left foot with unspecified severity; E11.628 Type 2 diabetes mellitus with other skin complications; L03.116 Cellulitis of left lower limb; L98.499 Non-pressure chronic ulcer of skin of other sites with unspecified severity; L97.819 Non-pressure chronic ulcer of other part of right lower leg with unspecified severity; E11.42 Type 2 diabetes mellitus with diabetic polyneuropathy; E11.65 Type 2 diabetes mellitus with hyperglycemia; L84 Corns and callosities; H40.9 Unspecified glaucoma; R63.4 Abnormal weight loss; M19.90 Unspecified osteoarthritis, unspecified site
CPT/HCPCS: 36415; 73630; 73700; 80048; 80053; 82948; 83036; 83605; 83735; 85025; 85027; 87040; 88305; 88311; 96361; 96365; 96366; 96367; 97116; 97161; 97165; 99285; A9270; G0378; G0379; J0696; J1815; J2250; J2405; J3010; J3370; J3475; J3480; J7030; J7120; L2116

== ENCOUNTER 2024-06-06 11:19 | Inpatient (IN) | payer MEDICAID, SELFPAY ==
--- NOTE | ~2024-06-06 | CT_ITS ---
EXAMINATION: CT foot RT w con DATE: 06/06/2024 15:55 INDICATION: Right foot infection. TECHNIQUE: Computed tomography (CT) of the right foot was performed without intravenous contrast. Aut omated exposure control and iterative reconstruction technique were employed. The dose-length product was 526.38 mGy-cm. COMPARISON: Right foot radiographs 06/06/2024 FINDINGS: There is dorsal dislocation of second proximal phalanx with respect to the metatarsal. Ther e is medial subluxation of first proximal phalanx with respect to the metatarsal. There are healing f ractures of the heads of the fourth and fifth metatarsals. There is severe osteoarthritis of first me tatarsophalangeal joint and mild osteoarthritis of some of the metatarsophalangeal joints and interph alangeal joints. There is soft tissue gas plantar to head of second metatarsal and in the second digi t and dorsal forefoot. There is widespread soft tissue edema. IMPRESSION: 1. No specific evidence of osteomyelitis. 2. Dislocation of second metatarsophalangeal joint. 3. Polyarticular osteoarthritis. Reviewed, dictated and finalized at location A.
--- NOTE | ~2024-06-06 | CT_ITS ---
EXAMINATION: CT foot RT wo/w con DATE: 06/08/2024 10:31 INDICATION: Right foot abscess. TECHNIQUE: Computed tomography (CT) of the right foot was performed without and with 100 mL Omnipaque 350 intravenous contrast. Automated exposure control and iterative reconstruction technique were emp loyed. The dose-length product was 1113.06 mGy-cm. COMPARISON: CT 06/06/2024 FINDINGS: There is dorsal dislocation of second proximal phalanx with respect to the metatarsal. Ther e is medial subluxation of first proximal phalanx with respect to the metatarsal. There are healing f ractures of the heads of the fourth and fifth metatarsals. There is severe osteoarthritis of first me tatarsophalangeal joint and mild osteoarthritis of some of the metatarsophalangeal joints and interph alangeal joints. There are loose bodies at the first and third metatarsophalangeal joints. There is s oft tissue gas plantar to head of second metatarsal and in the second digit and dorsal forefoot. Ther e is widespread soft tissue edema. There is an ulcer plantar to head of second metatarsal with 3 mm c alcification versus foreign body. Nonenhancing tissue extends from ulcer to the head of the second me tatarsal. IMPRESSION: 1. No specific evidence of osteomyelitis. 2. Dislocation of second metatarsophalangeal joint. 3. Polyarticular osteoarthritis. 4. Ulcer plantar to head of second metatarsal with edema and gas in the foot, consistent with celluli tis. Nonenhancing soft tissue from the ulcer to the head of the second metatarsal is likely devitaliz ed soft tissue. Reviewed, dictated and finalized at location A. IMPRESSION: 1. No specific evidence of osteomyelitis. 2. Dislocation of second metatarsophalangeal joint. 3. Polyarticular osteoarthritis. 4. Ulcer plantar to head of second metatarsal with edema and gas in the foot, c onsistent with cellulitis. Nonenhancing soft tissue from the ulcer to the head of the second metatarsal is likely devitalized soft tissue.
--- NOTE | ~2024-06-06 | XR_ITS ---
EXAMINATION: XR foot RT 2V DATE: 06/06/2024 13:18 INDICATION: Suspected space infection at the right second toe TECHNIQUE: Dorsoplantar and lateral views of the right foot were obtained. COMPARISON: None. FINDINGS: Dorsal/medial subluxation versus possible dislocation at the first metatarsophalangeal joint. There i s some increased sclerosis at the base of the first proximal phalanx and small likely loose osteochon dral body at the dorsal/lateral side of the head of the first metatarsal which suggests at least mode rate severity secondary osteoarthritis. There is dorsal/lateral dislocation at the second metatarsoph alangeal joint. Chronic calcified formation about the necks of the third and fourth metatarsals which could represent sequela of old fractures, osteotomies or chronic osteomyelitis. There is correspondi ng mild widening of the third and fourth metatarsophalangeal joints. No acute fractures identified. M ild polyarticular osteoarthritis at multiple tarsometatarsal and interphalangeal joints. No non corti cated erosions or osteolysis to suggest acute osteomyelitis. Prominent soft tissue swelling about the forefoot and second toe. IMPRESSION: 1. Dorsal dislocation at the second metatarsophalangeal joint and dorsal subluxation versus potential ly dislocation at the first metatarsophalangeal joint. The former is age indeterminate. The latter ap pears more likely chronic with likely secondary osteoarthritic changes at the base of the first proxi mal phalanx. 2. Deformities with chronic calcification at the distal third and fourth metatarsals which could repr esent sequela of old fractures, surgery or chronic osteomyelitis. 3. No non corticated cortical erosions or osteolysis to suggest osteomyelitis. Reviewed, dictated and finalized at location A. IMPRESSION: 1. Dorsal dislocation at the second metatarsophalangeal joint and dorsal sublux ation versus potentially dislocation at the first metatarsophalangeal joint. Th e former is age indeterminate. The latter appears more likely chronic with like ly secondary osteoarthritic changes at the base of the first proximal phalanx. 2. Deformities with chronic calcification at the distal third and fourth metata rsals which could represent sequela of old fractures, surgery or chronic osteom yelitis. 3. No non corticated cortical erosions or osteolysis to suggest osteomyelitis.
[2024-06-06 11:27] VITALS: BP 129/87; PULSE 91; RESP 17; TEMP 36.8; O2SAT 100
--- NOTE | 2024-06-06 12:56 | ED.GENADULT ---
HPI - General Adult General Chief complaint: Unspecified <Julito Bradford PA-C - Last Filed: 06/06/24 13:00> Stated complaint: cough, N/V <Julito Bradford PA-C - Last Filed: 06/06/24 13:00> Time Seen by Provider: 06/06/24 12:55 <Julito Bradford PA-C - Last Filed: 06/06/24 13:00> Focused HPI: This is a 48-year-old male with PMH of diabetes who has been off of his medications for your due to running out of insurance, who presents to the ED for chief complaint of right foot ulcer to the plantar surface. Also started feeling unwell 3-4 days ago. States that he swam in a public pool over the weekend and thinks that this may have caused an infection to the right foot. States his blood sugars have been running ?high. Family is with him and states that they saw blood sugar of greater than 500. Reports that the foot was draining fluid into the bed sheets last night. Endorses N/V and some mild cough. Denies fevers, chills, syncope, lightheadedness, chest pain, shortness of breath, cough or abdominal pain. GENERAL: Well-appearing, well-nourished, and in no acute distress. HEAD: Normocephalic, atraumatic. CHEST: Clear to auscultation. No respiratory distress. HEART: Regular rate and rhythm. ABD: Benign with no tenderness MSK: Dime-sized ulcer to the plantar surface of the right forefoot. Erythema noted to the dorsal surface of the right foot with swelling of the right 2nd toe. When palpating/squeezing the foot, copious brown purulent fluid drains out of the ulcer NEURO: Alert and oriented x3. Patient screened in triage and initial orders placed. Additional care and disposition to be based upon diagnostic testing and treatment. <Julito Bradford PA-C - Last Filed: 06/06/24 13:00> Related Data Allergies/adverse reactions: Allergies Allergy/AdvReac Type Severity Reaction Status Date / Time No Known Allergies Allergy Verified 07/06/21 08:48 <Julito Bradford PA-C - Last Filed: 06/06/24 13:00> Review of Systems Review of Systems: All systems reviewed & are unremarkable except as noted in HPI and below <Solange Wallis MD - Last Filed: 06/06/24 17:20> [facility] Past Medical History Medical History: Medical History Callus of foot Diabetic foot ulcer associated with diabetes mellitus due to underlying condition Glaucoma History of amputation of toe Osteomyelitis of toe of left foot Unintentional weight loss <Julito Bradford PA-C - Last Filed: 06/06/24 13:00> Surgical History Surgical History: Surgical History History of ankle surgery <Julito Bradford PA-C - Last Filed: 06/06/24 13:00> Family History Family History: Family History Other Arthritis Brain cancer Diabetes mellitus Heart disease Hypertension Lung cancer Neuropathy Stomach cancer <Julito Bradford PA-C - Last Filed: 06/06/24 13:00> Social History Social History: Social History Social History: Patient works for a local [employer]. He is and has his son part-time. He has not seen a doctor in several years. 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 EYES: EOMI, conjunctiva normal ENT:
[2024-06-06 13:08] LABS: Hematocrit 40.3 % (42.0-52.0); Mean Corpuscular HGB Conc 34.7 g/dl (32-36); Mean Corpuscular Hemoglobin 30.1 pg (26-34); Mean Corpuscular Volume 86.7 fl (80-100); Mean Platelet Volume 10.8 fl (7.4-10.4); Platelet Count Result 206 k/mm3 (150-375); Red Blood Count 4.65 M/mm3 (4.6-6.20); Red Cell Distribution Width 12.4 % (11.5-14.5); White Blood Count 14.5 K/mm3 (4.5-10.0)
[2024-06-06 13:20] LABS: INR 1.4; Prothrombin Time 17.5 Seconds (11.1-14.7)
[2024-06-06 13:25] LABS: Lactic Acid Reflex 2.2 mmol/L (0.7-2.0)
[2024-06-06 13:33] LABS: Alanine Aminotransferase 21 U/L (6-50); Alkaline Phosphatase 81 U/L (38-126); Anion Gap 15 mmol/L (4-12); Aspartate Amino Transferase 21 U/L (17-59); Bilirubin,Total 3.2 mg/dL (0.2-1.3); Blood Urea Nitrogen 34 mg/dL (9-20); Calcium 7.9 mg/dL (8.4-10.2); Carbon Dioxide 21 mmol/L (22-30); Chloride 90 mmol/L (98-107); Estimated CRCL calculation 68 ml/min; Estimated Glomerular Filt Rate 46; Glucose 592 mg/dL (65-110); Sodium 126 mmol/L (137-145)
[2024-06-06 13:39] LABS: Band Neutrophils Percent 30 % (0-6); Lymphocytes Absolute Manual 0.43 K/mm3 (1.1-4.5); Lymphocytes Percent Manual 3 % (18-44); Monocytes Absolute Manual 0.43 K/mm3 (0.1-0.90); Monocytes Percent Manual 3 % (3-9); Neutrophils Absolute Manual 13.63 K/mm3 (1.3-6.7); Neutrophils Percent Manual 64 % (46-73); Platelet Estimate Adequate (Adequate); Schistocytes None Seen; Total Cells Counted 100
[2024-06-06 14:02] LABS: Erythrocyte Sedimentation Rate 16 mm/hr (0-20)
[2024-06-06 14:24] LABS: CRP > 45.0 mg/dL (<1.0)
[2024-06-06] MEDS: SODIUM CHLORIDE 0.9% IV 1,000 ML 999 ML IV CONT (14:27)
[2024-06-06] MEDS: POTASSIUM CHLORIDE 20 MEQ ER TABLET 40 MEQ PO (14:28)
[2024-06-06] MEDS: INSULIN HUMAN REGULAR (*BKC) 100 UNITS/ML 12 UNITS IV PUSH (14:28)
[2024-06-06] MEDS: CEFEPIME 2 GM/NS 50 ML 2 GM/50 ML BAG IVPB (14:28)
[2024-06-06 14:40] LABS: Beta-Hydroxybutyrate/Acetoacetate 0.13 mmol/L (0.02-0.27)
[2024-06-06 15:16] LABS: Influenza A QL RT-PCR Negative (Negative); Influenza B QL RT-PCR Negative (Negative); RSV RNA, RT-PCR Negative (Negative); SARS-CoV-2 RNA PCR Positive (Negative)
[2024-06-06] MEDS: metroNIDAZOLE 500 MG/ISO 100ML 500 MG/100 ML BAG 100 MG IVPB ×2 (15:20→22:44)
[2024-06-06 16:06] LABS: Reflex Lactic Acid Yes or No Add Lactic
[2024-06-06] MEDS: LACTATED RINGERS 1,000 ML 999 ML IV CONT (16:30)
[2024-06-06 16:34] VITALS: BP 122/78; PULSE 88; RESP 18; TEMP 36.9; O2SAT 100
[2024-06-06 16:53] LABS: Lactic Acid 1.6 mmol/L (0.7-2.0)
[2024-06-06] MEDS: ONDANSETRON INJ 4 MG/2 ML VIAL IV PUSH ×2 (17:10→23:50)
[2024-06-06 17:42] LABS: Glucose Point of Care 392 mg/dl (65-105)
[2024-06-06] MEDS: VANCOMYCIN 1,250 MG/NS 250 ML 1,250 MG/250 ML BAG 166.67 MG IVPB ×2 (17:44→21:03)
[2024-06-06 17:45] VITALS: BP 124/76; PULSE 91; RESP 16; TEMP 36.4; O2SAT 99
--- NOTE | 2024-06-06 18:30 | ADMGEN ---
This patient, Kain Montejo, was admitted to [facility] Room 302-01. Patient/family oriented to hospital policies and general routines including ID bracelet, bed and alarms, visiting hours, pain management, procedures, bathroom and other care routines, personal items, smoking policy, room service/diet, and visiting hours. Information on how to activate the Rapid Response Team has been discussed. Patient/Family are encouraged to report perceived risks to care and to ask questions if they do not understand what they are told or what they should do.
[2024-06-06 18:35] VITALS: BP 135/82; PULSE 91; RESP 19; TEMP 36.4; O2SAT 100
[2024-06-06 18:44] VITALS: BMI 34.9
[2024-06-06 20:09] LABS: Glucose Point of Care 349 mg/dl (65-105)
[2024-06-06 20:40] VITALS: BP 125/72; PULSE 92; RESP 20; TEMP 36.6; O2SAT 98
[2024-06-06] MEDS: INSULIN ASPART (*BKC) 100 UNITS/ML SUB-Q (22:02)
--- NOTE | 2024-06-06 22:26 | PM.IMHP ---
H&P: HPI History of Present Illness Date/Time: 06/07/24 02:15 Chief Complaint: With cough, nausea vomiting and wound on the bottom of right foot Narrative: 48-year-old male with past medical history of obesity, uncontrolled diabetes and GERD who presented to the ER with multiple complaints cough, nausea and under right foot wound. Patient reports foot wound has been present for about a month. It is been bothering him more since he went swimming in a public pool last weekend. He has not been having any fevers or chills. Patient reports that he has not been on any prescribed medications for at least a year to lack of insurance coverage. He states he was previously on Lantus his 25 units or so a day and a once weekly injection. He stated the shins and is 2 oral medications his A1c was down below 7. N/C losses dentures he has not been able to go to a physician. He has not been checking his sugars because he knows he cannot afford any medications to treat them. The couple of times that he has checked his sugars they have been in the 300s or worse. He reports that the wound on the bottom of his foot is been present for about a month. However it acutely worsened 3 days prior to presentation. He started having worsening edema on that progressed up into his leg. He the toe was becoming swollen and erythematous in the last 24-48 hours. Just prior to arriving to the ER patient noted that he was dealt developing some purplish discoloration around the edges of the toe. He reports that the foot does not hurt him because his neuropathy is so bad. He has dove the ulcer on the bottom of his foot. He is not he fevers or chills. He does have frequent GERD symptoms. He reports that as long as he takes is Prilosec each day is reflux is for the most part controlled. He denies any difficulty swallowing dysphagia. He usually takes is Prilosec at 01:00 because he has to be a work at 3 or 04:00. He reports that for the last week he has been feeling generally ill. When he takes a drink of just about anything he has almost instant vomiting. He has had significant decreased appetite which is surprising from his baseline polyuria polydipsia and polyphagia. He has not been able to drink as much water so he has noticed more concentrated urine. He reports that he usually has to get up just but every hour at night to urinate and to drink more water because his mouth is so dry. He has had some chronic blurred vision. He reports that he did have a an ex-girlfriend to use did tell him that he would stop breathing at night. He has never had a sleep study. He reports that he was post have a sleep study a little over year ago but he lost his insurance and had to cancel this study. He was also supposed to have a colonoscopy around the same time which did not occur. 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 Review of Systems Review of Systems: 12 systems were reviewed with pertinent positives and negatives per HPI. Except as documented in the HPI, all other systems were reviewed and are negative. [facility] Past Medical History Medical History (Updated 06/07/24 @ 10:47 by Madhuri Herring DO) Diabetic peripheral neuropathy Erectile dysfunction associated with type 2 diabetes mellitus Glaucoma Obesity (BMI 30.0-34.9) Osteomyelitis of toe of left foot (2020) Left 5th toe Type 2 diabetes mellitus (~04/2021) Officially diagnosed in 2020 but patient already had a foot wound and osteomyelitis of the left toe at that time Ulcer of left fifth toe due to diabetes mellitus (04/2021) With associated cellulitis Surgical History Surgical History (Updated 06/06/24 @ 22:50 by Madhuri Herring DO) History of amputation of toe Left 5th toe History of ankle surgery Family History Family History (Updated 06/07/24 @ 10:38 by Madhuri Herring DO) Father Heart disease Acute myocardial infarction, Onset Age: 62 Tobacco use Mother , She in her 70s Br
[2024-06-06] MEDS: SODIUM CHLORIDE 0.9% IV 1,000 ML 125 ML IV CONT (22:44)
[2024-06-06] MEDS: INSULIN GLARGINE (*BKC) 100 UNITS/ML 15 UNITS SUB-Q (23:47)
[2024-06-06] MEDS: ACETAMINOPHEN 325 MG TABLET 650 MG PO (23:50)
[2024-06-07] MEDS: CEFEPIME 2 GM/NS 50 ML 2 GM/50 ML BAG IVPB ×2 (02:57→14:54)
[2024-06-07 03:12] LABS: Glucose Point of Care 309 mg/dl (65-105)
[2024-06-07] MEDS: BELLADONNA ALK/PHENOB ELIX 10 ML, MAG HYDROX/ALUMINUM HYD/SIMETH 30 ML, LIDOCAINE HCL 2... PO (03:20)
[2024-06-07 05:33] VITALS: BP 144/87; PULSE 91; RESP 20; TEMP 36.4; O2SAT 99
[2024-06-07] MEDS: SODIUM CHLORIDE 0.9% IV 1,000 ML 125 ML IV CONT ×3 (06:29→20:04)
[2024-06-07] MEDS: metroNIDAZOLE 500 MG/ISO 100ML 500 MG/100 ML BAG 100 MG IVPB ×3 (06:30→23:23)
[2024-06-07] MEDS: ONDANSETRON INJ 4 MG/2 ML VIAL IV PUSH (06:31)
[2024-06-07 07:06] LABS: Basophils Percent Auto 0.2 % (0.2-1.2); Eosinophils Percent Auto 0.1 % (0-4.4); Hemoglobin 13.1 g/dL (14.0-18.0); Immature Granulocyte Absolute 0.06 K/mm3 (0.00-0.031); Immature Granulocyte Percent A 0.4 % (0-0.5); Lymphocytes Absolute Auto 0.88 K/mm3 (0.9-3.2); Lymphocytes Percent Auto 6.6 % (18.3-44.2); Mean Corpuscular HGB Conc 33.6 g/dl (32-36); Mean Corpuscular Hemoglobin 29.7 pg (26-34); Mean Corpuscular Volume 88.4 fl (80-100); Mean Platelet Volume 10.3 fl (7.4-10.4); Monocytes Absolute Auto 1.1 K/mm3 (0.1-0.6); Monocytes Percent Auto 8.1 % (2.6-8.5); Neutrophils Absolute Auto 11.4 K/mm3 (1.3-6.7); Neutrophils Percent Auto 84.6 % (45.5-73.1); Platelet Count Result 237 k/mm3 (150-375); Red Blood Count 4.41 M/mm3 (4.6-6.20); Red Cell Distribution Width 12.7 % (11.5-14.5); White Blood Count 13.4 K/mm3 (4.5-10.0)
[2024-06-07 07:27] LABS: Glucose Point of Care 308 mg/dl (65-105)
[2024-06-07 07:28] LABS: Alanine Aminotransferase 18 U/L (6-50); Albumin Level 3.2 g/dL (3.5-5.1); Alkaline Phosphatase 64 U/L (38-126); Anion Gap 12 mmol/L (4-12); Aspartate Amino Transferase 19 U/L (17-59); Bilirubin,Total 2.8 mg/dL (0.2-1.3); Blood Urea Nitrogen 27 mg/dL (9-20); Calcium 7.6 mg/dL (8.4-10.2); Carbon Dioxide 21 mmol/L (22-30); Chloride 99 mmol/L (98-107); Estimated CRCL calculation 97 ml/min; Estimated Glomerular Filt Rate > 60; Glucose 300 mg/dL (65-110); Potassium 3.9 mmol/L (3.4-5.0); Sodium 132 mmol/L (137-145)
[2024-06-07 07:58] VITALS: O2SAT 98
--- NOTE | 2024-06-07 08:03 | PM.IMPN ---
Progress Note: A&P Assessment and Plan (1) Diabetic foot ulcer associated with type 2 diabetes mellitus: Code(s): E11.621 - Type 2 diabetes mellitus with foot ulcer; L97.509 - Non-pressure chronic ulcer of other part of unspecified foot with unspecified severity Status: Acute Assessment and Plan: Leukocytosis 13.4, afebrile, lactic 1.6, procal 8.9 Started on Cefepime, Flagyl, Vancomycin CT of the right foot mentions no specific evidence of osteomyelitis, dislocation of second metatarsophalangeal joint, polyarticular arthritis. It also mentions soft tissue gas to the plantar head of the second metatarsal. This was palpable on exam. Blood cultures pending CRP > 45.0 NS at 125 ml per hour DVT prophylaxis with Lovenox Orthopedic consulted (2) Uncontrolled diabetes mellitus: Qualifiers: Diabetes mellitus type: type 2 Glycemic state: with hyperglycemia Qualified Code(s): E11.65 - Type 2 diabetes mellitus with hyperglycemia Status: Acute Assessment and Plan: Patient has a history of diabetes but has not been able to get his medications due to lack of insurance. Started on 70/[address] Stokes recommendations as this is more affordable without insurance SSI high dose sliding scale AC/HS accu checks, hypoglycemia protocol Hemoglobin A1C pending Consult to the diabetic educator, mulu clements (3) Nausea & vomiting: Code(s): R11.2 - Nausea with vomiting, unspecified Status: Acute Assessment and Plan: Persistent nausea and vomiting for the last week. Likely multifactorial given hyperglycemia vs possible gastroparesis vs COVID vs viral gastroenteritis Zofran PRN, added Compazine IVF Clear liquids recommended Lipase 21 T-bili mildly elevated 2.8 No abdominal pain, abdomen is soft and non-tender, passing flatus, and having bowel movements. (4) COVID: Code(s): U07.1 - COVID-19 Status: Acute Assessment and Plan: He reports having upper respiratory symptoms that started a week ago, he thought he had a cold. He reports a dry non-productive cough but otherwise no respiratory symptoms. COVID + on admission conservative treatment droplet precautions Plan DVT prophylaxis: Lovenox Glycemic control: SSI high dose and Lantus Code Status: Full code Disposition: 48 year old male with a history of DM who presents with diabetic foot ulcer. He has been admitted and started on IV antibiotics with Cefepime, Vancomycin, and Flagyl. Orthopedics was consulted. Medication reconciliation obtained via the following: Nurse completed on admission The file time of this note does not necessarily represent the time the patient was seen. Subjective Date/time seen: 06/07/24 08:03 Interval history: 48-year-old male with past medical history of obesity, uncontrolled diabetes and GERD who presented to the ER with multiple complaints cough, nausea and under right foot wound. 06/07: Patient is seen in bed and he is having vomiting. He states for the last week he has had nausea, vomiting, and a new non-productive cough. He states he is vomiting clear, yellow contents. He has not been able to eat much for the last week. He denies fever, chills, headache, chest pain, shortness of breath, diarrhea, or constipation. He has been passing flatus and having formed brown stool. He also has a plantar diabetic foot ulcer to his right foot with drainage and surround ecchymosis and crepitus. Review of Systems Review of Systems: All systems reviewed & are unremarkable except as noted in HPI and below Exam Narrative: General: well appearing,appears stated age. HEENT: normocephalic, atraumatic. Mucous membranes moist. EOMI, PERRLA, bilateral sclera anicteric, no conjunctival injection. Neck supple without JVD, lymphadenopathy, or
[2024-06-07] MEDS: INSULIN ASPART (*BKC) 100 UNITS/ML SUB-Q ×4 (08:17→20:21)
[2024-06-07] MEDS: ENOXAPARIN 40 MG/0.4 ML SYRINGE SUB-Q (08:18)
[2024-06-07] MEDS: PANTOPRAZOLE 40 MG TABLET PO (08:18)
[2024-06-07] MEDS: VANCOMYCIN 1,500 MG/NS 500 ML 1,500 MG/500 ML BAG 250 MG IVPB ×2 (08:19→20:01)
[2024-06-07 09:15] LABS: Procalcitonin 8.9 ng/mL
[2024-06-07 09:50] LABS: Lipase 21 U/L (23-300)
[2024-06-07] MEDS: PROCHLORPERAZINE EDISYLATE 10 MG/2 ML VIAL IV PUSH ×2 (10:03→20:21)
[2024-06-07 11:32] LABS: Glucose Point of Care 297 mg/dl (65-105)
[2024-06-07 12:41] LABS: Hemoglobin A1C 13.9 % (<5.7)
[2024-06-07 13:40] VITALS: BMI 34.9
[2024-06-07 14:00] VITALS: BP 150/72; PULSE 102; RESP 16; TEMP 36.9; O2SAT 96
[2024-06-07 16:37] LABS: Glucose Point of Care 280 mg/dl (65-105)
--- NOTE | 2024-06-07 17:09 | PM.CNOR ---
Assessment and Plan Assessment and plan (1) Diabetic foot ulcer associated with type 2 diabetes mellitus: Qualifiers: Diabetic foot ulcer location: toe Laterality: right Non-pressure ulcer stage: unspecified non-pressure ulcer stage Qualified Code(s): E11.621 - Type 2 diabetes mellitus with foot ulcer; L97.519 - Non-pressure chronic ulcer of other part of right foot with unspecified severity Code(s): E11.621 - Type 2 diabetes mellitus with foot ulcer; L97.509 - Non-pressure chronic ulcer of other part of unspecified foot with unspecified severity Status: Acute (2) Cellulitis of foot: Code(s): L03.119 - Cellulitis of unspecified part of limb Status: Acute Plan Diabetic foot ulcer, and osteomyelitis. I reviewed the radiographs and CT scan. There is degeneration of the 1st metatarsophalangeal joint, and subluxation of the 2nd metatarsophalangeal joint. Extensive infection and swelling noted. Please consult General surgery for definitive treatment. No specific treatment required for the subluxated 2nd metatarsophalangeal joint. History of Present Illness HPI Consult date: 06/07/24 Chief complaint: Uncontrolled DM/Foot Cellulitis Narrative: Patient admitted with diabetic foot ulcer and infection. Consultation due to subluxed 2nd metatarsal phalangeal joint. Review of Systems Review of Systems: All systems reviewed & are unremarkable except as noted in HPI and below PMFSH Past Medical History Medical History (Updated 06/07/24 @ 10:47 by Madhuri Herring DO) Diabetic peripheral neuropathy Erectile dysfunction associated with type 2 diabetes mellitus Glaucoma Obesity (BMI 30.0-34.9) Osteomyelitis of toe of left foot (2020) Left 5th toe Type 2 diabetes mellitus (~04/2021) Officially diagnosed in 2020 but patient already had a foot wound and osteomyelitis of the left toe at that time Ulcer of left fifth toe due to diabetes mellitus (04/2021) With associated cellulitis Surgical History Surgical History (Updated 06/06/24 @ 22:50 by Madhuri Herring DO) History of amputation of toe Left 5th toe History of ankle surgery Family History Family History (Updated 06/07/24 @ 10:38 by Madhuri Herring DO) Father Heart disease Acute myocardial infarction, Onset Age: 62 Tobacco use Mother , She in her 70s Brain cancer Lung cancer Carcinoma of colon Other Arthritis Diabetes mellitus Hypertension Neuropathy Stomach cancer Social History Social History (Updated 06/07/24 @ 10:36 by Madhuri Herring DO) Social History: Patient is single and lives alone. He states he has never been . Patient works for a [employer]. He has his (non biologic) son part-time. He is a lifelong nonsmoker. He denies history of significant alcohol use or illicit substance use. Code status: DNR/DNI (per patient request) Surrogate decision maker: Sole Farnsworth (niece) Smoking status: Never smoker Second hand tobacco smoke exposure: No Alcohol intake: never Substance use: never Substance use type: does not use Do You Feel Safe in your Home?: Yes Lack of Transportation: No Lack of Food: Never True Current Housing: I Have Housing Concerned About Future Housing: No Difficulty Paying Gas/Electric Bills: No Difficulty Paying for Meds: YES Currently Unemployed: No Education: Decline to Answer Difficulty w/ Childcare or Family Care: No Living arrangements: alone Additional living arrangements comments: Son lives with him partnership marketing manager Occupation/Education: occupation 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
[2024-06-07] MEDS: INSULIN HUMAN ISOPHAN/REGULAR 70/30 (*BKC) 100 UNITS/ML 12 UNITS SUB-Q (17:47)
[2024-06-07 19:55] LABS: Glucose Point of Care 241 mg/dl (65-105)
[2024-06-07 20:11] VITALS: BP 144/79; PULSE 94; RESP 18; TEMP 37.5; O2SAT 97
[2024-06-08] VITALS (12 sets, daily range): BP systolic 122–150; BP diastolic 73–89; PULSE 87–98; RESP 14–20; TEMP 36.2–37.2; O2SAT 97–100
[2024-06-08] MEDS: CEFEPIME 2 GM/NS 50 ML 2 GM/50 ML BAG IVPB (02:31)
[2024-06-08] MEDS: INSULIN HUMAN ISOPHAN/REGULAR 70/30 (*BKC) 100 UNITS/ML 12 UNITS SUB-Q ×2 (07:00→17:19)
[2024-06-08] MEDS: metroNIDAZOLE 500 MG/ISO 100ML 500 MG/100 ML BAG 100 MG IVPB (07:00)
[2024-06-08 07:12] LABS: Glucose Point of Care 219 mg/dl (65-105)
[2024-06-08 07:23] LABS: Basophils Percent Auto 0.3 % (0.2-1.2); Eosinophils Percent Auto 0.1 % (0-4.4); Hematocrit 35.8 % (42.0-52.0); Hemoglobin 12.2 g/dL (14.0-18.0); Immature Granulocyte Absolute 0.08 K/mm3 (0.00-0.031); Immature Granulocyte Percent A 0.6 % (0-0.5); Lymphocytes Absolute Auto 0.87 K/mm3 (0.9-3.2); Lymphocytes Percent Auto 6.6 % (18.3-44.2); Mean Corpuscular HGB Conc 34.1 g/dl (32-36); Mean Platelet Volume 9.9 fl (7.4-10.4); Monocytes Percent Auto 7.7 % (2.6-8.5); Neutrophils Absolute Auto 11.1 K/mm3 (1.3-6.7); Neutrophils Percent Auto 84.7 % (45.5-73.1); Platelet Count Result 244 k/mm3 (150-375); Red Blood Count 4.07 M/mm3 (4.6-6.20); Red Cell Distribution Width 13.1 % (11.5-14.5); White Blood Count 13.1 K/mm3 (4.5-10.0)
[2024-06-08 07:24] LABS: Alanine Aminotransferase 15 U/L (6-50); Albumin Level 2.8 g/dL (3.5-5.1); Alkaline Phosphatase 63 U/L (38-126); Anion Gap 9 mmol/L (4-12); Aspartate Amino Transferase 20 U/L (17-59); Bilirubin,Total 2.8 mg/dL (0.2-1.3); Blood Urea Nitrogen 19 mg/dL (9-20); Calcium 7.2 mg/dL (8.4-10.2); Carbon Dioxide 21 mmol/L (22-30); Chloride 100 mmol/L (98-107); Estimated CRCL calculation 106 ml/min; Estimated Glomerular Filt Rate > 60; Glucose 217 mg/dL (65-110); Potassium 3.8 mmol/L (3.4-5.0); Sodium 130 mmol/L (137-145)
[2024-06-08 07:27] LABS: Vancomycin Trough 10.5 ug/mL (10.0-20.0)
--- NOTE | 2024-06-08 07:42 | P.PNIM_ITS ---
Progress Note: A&P Assessment and Plan (1) Diabetic foot ulcer associated with type 2 diabetes mellitus: Qualifiers: Diabetic foot ulcer location: toe Laterality: right Non-pressure ulcer stage: unspecified non-pressure ulcer stage Qualified Code(s): E11.621 - Type 2 diabetes mellitus with foot ulcer; L97.519 - Non-pressure chronic ulcer of other part of right foot with unspecified severity Code(s): E11.621 - Type 2 diabetes mellitus with foot ulcer; L97.509 - Non-pressure chronic ulcer of other part of unspecified foot with unspecified severity Status: Acute Assessment and Plan: * Leukocytosis 13.4, afebrile, lactic 1.6, procal 8.9 * Started on Cefepime, Flagyl, Vancomycin * CT of the right foot mentions no specific evidence of osteomyelitis, dislocation of second metatarsophalangeal joint, polyarticular arthritis. It also mentions soft tissue gas to the plantar head of the second metatarsal. This was palpable on exam. * Blood cultures pending * CRP > 45.0 * NS at 125 ml per hour * DVT prophylaxis with Lovenox * General surgery consulted, recs appreciated * Repeat CT of the foot was ordered by surgery given vast changes in appearance from yesterday * Patient NPO, will go for surgery this afternoon (2) Uncontrolled diabetes mellitus: Qualifiers: Diabetes mellitus type: type 2 Glycemic state: with hyperglycemia Qualified Code(s): E11.65 - Type 2 diabetes mellitus with hyperglycemia Status: Acute Assessment and Plan: Patient has a history of diabetes but has not been able to get his medications due to lack of insurance. * Started on 70/[address] Stokes recommendations as this is more affordable without insurance * SSI high dose sliding scale * AC/HS accu checks, hypoglycemia protocol * Hemoglobin A1C 13.9% * Consult to the product control and logistics analyst, recs appreciated (3) Nausea & vomiting: Code(s): R11.2 - Nausea with vomiting, unspecified Status: Acute Assessment and Plan: Persistent nausea and vomiting for the last week. Likely multifactorial given hyperglycemia vs possible gastroparesis vs COVID vs viral gastroenteritis * Zofran PRN, added Compazine * IVF * Clear liquids recommended * Lipase 21 * T-bili mildly elevated 2.8 * No abdominal pain, abdomen is soft and non-tender, passing flatus, and having bowel movements. * Nearly resolved today now that blood sugar is more controlled (4) HTN (hypertension): Code(s): I10 - Essential (primary) hypertension Status: Acute Assessment and Plan: Blood pressures on admission 129/87 mmhg. Now 140-150's systolic. Patient is not on anti-hypertensives at home. * Elevation could be from IVF. He is on a regular diet. Will decrease fluids and possibly d/c all together if his nausea, vomiting has resolved. * If his blood pressures are persistently elevated may consider adding medications (5) COVID: Code(s): U07.1 - COVID-19 Status: Acute Assessment and Plan: He reports having upper respiratory symptoms that started a week ago, he thought he had a cold. He reports a dry non-productive cough but otherwise no respiratory symptoms. * COVID + on admission * conservative treatment * droplet precautions (6) FEMI (obstructive sleep apnea): Code(s): G47.33 - Obstructive sleep apnea (adult) (pediatric) Status: Acute Assessment and Plan: Concerns for obstructive sleep apnea so an apnea link was preformed * Apnea link reports AHI of 70.1, JOSELINE 74.8 * Average saturation was 95%, lowest saturation 76%
--- NOTE | 2024-06-08 07:42 | PM.IMPN ---
Progress Note: A&P Assessment and Plan (1) Diabetic foot ulcer associated with type 2 diabetes mellitus: Qualifiers: Diabetic foot ulcer location: toe Laterality: right Non-pressure ulcer stage: unspecified non-pressure ulcer stage Qualified Code(s): E11.621 - Type 2 diabetes mellitus with foot ulcer; L97.519 - Non-pressure chronic ulcer of other part of right foot with unspecified severity Code(s): E11.621 - Type 2 diabetes mellitus with foot ulcer; L97.509 - Non-pressure chronic ulcer of other part of unspecified foot with unspecified severity Status: Acute Assessment and Plan: Leukocytosis 13.4, afebrile, lactic 1.6, procal 8.9 Started on Cefepime, Flagyl, Vancomycin CT of the right foot mentions no specific evidence of osteomyelitis, dislocation of second metatarsophalangeal joint, polyarticular arthritis. It also mentions soft tissue gas to the plantar head of the second metatarsal. This was palpable on exam. Blood cultures pending CRP > 45.0 NS at 125 ml per hour DVT prophylaxis with Lovenox General surgery consulted, recs appreciated Repeat CT of the foot was ordered by surgery given vast changes in appearance from yesterday Patient NPO, will go for surgery this afternoon (2) Uncontrolled diabetes mellitus: Qualifiers: Diabetes mellitus type: type 2 Glycemic state: with hyperglycemia Qualified Code(s): E11.65 - Type 2 diabetes mellitus with hyperglycemia Status: Acute Assessment and Plan: Patient has a history of diabetes but has not been able to get his medications due to lack of insurance. Started on 70/[address] Stokes recommendations as this is more affordable without insurance SSI high dose sliding scale AC/HS accu checks, hypoglycemia protocol Hemoglobin A1C 13.9% Consult to the primary special educator, recs appreciated (3) Nausea & vomiting: Code(s): R11.2 - Nausea with vomiting, unspecified Status: Acute Assessment and Plan: Persistent nausea and vomiting for the last week. Likely multifactorial given hyperglycemia vs possible gastroparesis vs COVID vs viral gastroenteritis Zofran PRN, added Compazine IVF Clear liquids recommended Lipase 21 T-bili mildly elevated 2.8 No abdominal pain, abdomen is soft and non-tender, passing flatus, and having bowel movements. Nearly resolved today now that blood sugar is more controlled (4) HTN (hypertension): Code(s): I10 - Essential (primary) hypertension Status: Acute Assessment and Plan: Blood pressures on admission 129/87 mmhg. Now 140-150's systolic. Patient is not on anti-hypertensives at home. Elevation could be from IVF. He is on a regular diet. Will decrease fluids and possibly d/c all together if his nausea, vomiting has resolved. If his blood pressures are persistently elevated may consider adding medications (5) COVID: Code(s): U07.1 - COVID-19 Status: Acute Assessment and Plan: He reports having upper respiratory symptoms that started a week ago, he thought he had a cold. He reports a dry non-productive cough but otherwise no respiratory symptoms. COVID + on admission conservative treatment droplet precautions (6) FEMI (obstructive sleep apnea): Code(s): G47.33 - Obstructive sleep apnea (adult) (pediatric) Status: Acute Assessment and Plan: Concerns for obstructive sleep apnea so an apnea link was preformed Apnea link reports AHI of 70.1, JOSELINE 74.8 Average saturation was 95%, lowest saturation 76% Total desaturations of 517. He had 10 minutes of saturation less than 88%, 3 minutes less than 80% He will need a formal sleep study as an outpatient for CPAP While inpatient we can place on CPAP at Plan DVT prophylaxis: Lovenox Glycemic control: SSI high dose and Lantus Code Status: Full code Disposition: 48 year old male with a history of DM who presents with
[2024-06-08] MEDS: ENOXAPARIN 40 MG/0.4 ML SYRINGE SUB-Q (08:37)
[2024-06-08] MEDS: PANTOPRAZOLE 40 MG TABLET PO (08:37)
[2024-06-08] MEDS: SODIUM CHLORIDE 0.9% IV 1,000 ML 75 ML IV CONT (08:37)
[2024-06-08] MEDS: VANCOMYCIN 1,750 MG/NS 500 ML 1,750 MG/500 ML BAG 250 MG IVPB ×2 (08:37→17:19)
[2024-06-08] MEDS: INSULIN ASPART (*BKC) 100 UNITS/ML SUB-Q (08:38)
--- NOTE | 2024-06-08 09:54 | PM.CNGS ---
Assessment and Plan Assessment and plan (1) Diabetic foot infection: Code(s): E11.628 - Type 2 diabetes mellitus with other skin complications; L08.9 - Local infection of the skin and subcutaneous tissue, unspecified Status: Acute Assessment and Plan: Patient's nurse had seen the patient yesterday and reviewed the right foot with me today. She reports it is much worse than yesterday. The black and areas are more extensive. There was no evidence of an abscess on the lateral proximal dorsum of the foot yesterday. I do not feel any crepitus but suspect there is an anaerobic, gas-forming organism causing infection. Patient has just eaten liquid breakfast. Will get stat CT scan of the right foot to better evaluate areas of infection and possible gas-forming infection. Will make NPO and most likely need to proceed with 2nd toe amputation as well as debridement with drainage of abscess on the more proximal foot. (2) Diabetic wet gangrene of the foot: Code(s): E11.52 - Type 2 diabetes mellitus with diabetic peripheral angiopathy with gangrene Status: Acute Assessment and Plan: Please see above (3) Uncontrolled diabetes mellitus: Qualifiers: Diabetes mellitus type: type 2 Glycemic state: with hyperglycemia Qualified Code(s): E11.65 - Type 2 diabetes mellitus with hyperglycemia Status: Acute Assessment and Plan: Non compliant, blood sugars currently about 200 (4) COVID-19: Code(s): U07.1 - COVID-19 Status: Acute Assessment and Plan: Has been asymptomatic for 6 days but is still under COVID precautions. (5) Diabetic foot ulcer associated with type 2 diabetes mellitus: Qualifiers: Diabetic foot ulcer location: toe Laterality: right Non-pressure ulcer stage: unspecified non-pressure ulcer stage Qualified Code(s): E11.621 - Type 2 diabetes mellitus with foot ulcer; L97.519 - Non-pressure chronic ulcer of other part of right foot with unspecified severity Code(s): E11.621 - Type 2 diabetes mellitus with foot ulcer; L97.509 - Non-pressure chronic ulcer of other part of unspecified foot with unspecified severity Status: Acute Assessment and Plan: Draining 2nd MTP ulcer, purulent drainage, probably the source of the foot infection. History of Present Illness Consult details Consult date: 06/08/24 Reason for consult: other (Diabetic foot infection) Requesting physician: Sánchez Laura MD Narrative: Patient is a 48-year-old man who stop taking any of his diabetic medications about a year ago. In 2020 he had a left foot diabetic foot infection and had a 5th toe amputation as well as excision of some ulcers on his left foot. He recently noticed swelling and a 2nd MTP ulcer on the right foot with drainage. He was not feeling well either. In the emergency room, his blood sugar was noted to be just under 600. His white blood cell count was elevated with a left shift. He had acute kidney injury with creatinine 1.6. He was started on antibiotics and Orthopedics was consulted. It was felt he had osteomyelitis of the right 2nd toe with associated diabetic foot infection. I was consulted yesterday evening. At present, he has no pain in the foot. He does think that it is more swollen and the black and areas by the 2nd toe are larger. He did test positive for COVID in the emergency room and had what he thought was some allergies Monday and Monday last week. This included a cough and runny nose. He has felt fine since June 02. His hemoglobin A1c was 13.9 yesterday. Review of Systems Review of Systems: All systems reviewed & are unremarkable except as noted in HPI and below (HPI) Constitutional: Constitutional: Denies chills, Denies fever(s), Reports lethargy and Reports malaise PMFSH Past Medical History Medical History Diabetic peripheral neuropathy Erectile dysfunct
--- NOTE | 2024-06-08 11:43 | PC.NURSE ---
call to vascular manager intermediate to obtain second IV site due to multiple antibiotics
[2024-06-08 12:21] LABS: Glucose Point of Care 168 mg/dl (65-105)
[2024-06-08] MEDS: PIPERACILLIN/TAZ 4.5G/NS 100ML 4.5 GM/100 ML BAG IVPB ×2 (12:39→17:19)
--- NOTE | 2024-06-08 14:38 | PC.NURSE ---
pt to surgery via bed
--- NOTE | 2024-06-08 14:57 | WPDANESEPPF ---
Anes - Initial Pre Proc Eval Procedure: Operation Date: 06/08/24 13:00 Proposed Procedures p Right Open Transmetatarsal Amputation Right 2nd Toe with Debridement and Abscess Drainage(Right) - Johan Jauregui MD Date/Time: 06/08/24 14:57 Surgeon: Sole Pyle APRN Pre Op Diagnosis: Uncontrolled DM/Foot Cellulitis Patient Data Age: 48 Gender: M Height: 1.85 m Weight: 120 kg Last Vital Signs Temp 36.2 C L 06/08/24 13:27 Pulse 90 06/08/24 13:27 Resp 16 06/08/24 13:27 BP 149/73 H 06/08/24 13:27 Pulse Ox 99 06/08/24 13:27 O2 Del Method Room Air 06/08/24 05:25 FiO2 21 06/07/24 07:58 Allergies Allergy/AdvReac Type Severity Reaction Status Date / Time No Known Allergies Allergy Verified 07/06/21 08:48 Home Medications Medication Instructions Recorded Confirmed Type omeprazole magnesium 20 mg 20 mg PO QAM 06/06/24 06/06/24 History tablet,delayed release (Prilosec OTC) Laboratory Tests 06/07/24 06/07/24 06/08/24 16:31 19:51 06:59 WBC RBC Hgb Hct MCV MCH MCHC RDW Plt Count MPV Immature Gran % (Auto) Neut % (Auto) Lymph % (Auto) [place] % (Auto) Eos % (Auto) Baso % (Auto) Lymph # (Auto) [place] # (Auto) Eos # (Auto) Baso # (Auto) Abs Immat Gran (auto) Absolute Neuts (auto) Absolute Nucleated RBC Nucleated RBC % Sodium Potassium Chloride Carbon Dioxide Anion Gap BUN Creatinine Estim Creat Clear Calc Estimated GFR Glucose POC Capillary Glucose 280 H mg/dl 241 H mg/dl 219 H mg/dl (65-105) (65-105) (65-105) Calcium Magnesium Total Bilirubin AST ALT Alkaline Phosphatase Total Protein Albumin Vancomycin Trough 06/08/24 06/08/24 07:03 12:17 WBC 13.1 H K/mm3 (4.5-10.0) RBC 4.07 L M/mm3 (4.6-6.20) Hgb 12.2 L g/dL (14.0-18.0) Hct 35.8 L % (42.0-52.0) MCV 88.0 fl (80-100) MCH 30.0 pg (26-34) MCHC 34.1 g/dl (32-36) RDW 13.1 % (11.5-14.5) Plt Count 244 k/mm3 (150-375) MPV 9.9 fl (7.4-10.4) Immature Gran % (Auto) 0.6 H % (0-0.5) Neut % (Auto) 84.7 H % (45.5-73.1) Lymph % (Auto) 6.6 L % (18.3-44.2) [place] % (Auto) 7.7 % (2.6-8.5) Eos % (Auto) 0.1 % (0-4.4) Baso % (Auto) 0.3 % (0.2-1.2) Lymph # (Auto) 0.87 L K/mm3 (0.9-3.2) [place] # (Auto) 1.0 H K/mm3 (0.1-0.6) Eos # (Auto) 0.0 K/mm3 (0-0.3) Baso # (Auto) 0.0 K/mm3 (0.0-0.1) Abs Immat Gran (auto) 0.08 H K/mm3 (0.00-0.031) Absolute Neuts (auto) 11.1 H K/mm3 (1.3-6.7) Absolute Nucleated RBC 0.000 K/mm3 (0.0-0.012) Nucleated RBC % 0.0 % (0.0-0.2) Sodium 130 L mmol/L (137-145) Potassium 3.8 mmol/L (3.4-5.0) Chloride 100 mmol/L (98-107) Carbon Dioxide 21 L mmol/L (22-30) Anion Gap 9 mmol/L (4-12) BUN 19 mg/dL (9-20) Creatinine 1.00 mg/dL (0.7-1.3) Estim Creat Clear Calc 106 ml/min Estimated GFR > 60 (59 - ) Glucose 217 H mg/dL (65-110) POC Capillary Glucose 168 H mg/dl (65-105) Calcium 7.2 L mg/dL (8.4-10.2) Magnesium 2.0 mg/dL (1.6-2.3) Total Bilirubin 2.8 H mg/dL (0.2-1.3) AST 20 U/L (17-59) ALT 15 U/L (6-50) Alkaline Phosphatase 63 U/L (38-126) Total Protein 6.0 L g/dL (6.3-8.2) Albumin 2.8 L g/dL (3.5-5.1) Vancomyc
[2024-06-08] MEDS: LACTATED RINGERS 1,000 ML 30 ML IV CONT (16:15)
--- NOTE | 2024-06-08 16:29 | WPDHPUPDATE1 ---
History and Physical Update Update Date/Time: 06/08/24 16:29 History and Physical has been reviewed, including an updated exam of the patient. There are NO changes in the patient's condition. Risks, benefits, and alternatives have been discussed and questions answered. Patient agrees to proceed with procedure.
--- NOTE | 2024-06-08 17:10 | PC.NURSE ---
pt returned from surgery via bed, resting comfortably, denies discomfort
[2024-06-08 17:14] LABS: Glucose Point of Care 144 mg/dl (65-105)
--- NOTE | 2024-06-08 17:17 | W.PM.PROC2 ---
Procedure Note - Detailed Date of Procedure 06/08/24 Pre-op Diagnosis Anaerobic infection right 2nd toe and foot Post-op Diagnosis Other (Extensive necrotizing soft tissue infection right 2nd toe and foot) Procedure Performed Open right transmetatarsal amputation 2nd toe with excisional debridement skin, subcutaneous, muscle, bone of a 14 x 4 x 2 cm area of the right foot in addition to the open amputation. Total size debridement 112 cm3. Excision of 2nd metatarsal ulcer right foot. Surgeon Johan Jauregui MD [employer] Office Manager Hardy SHEPPARD Anesthesia General Indications Patient presented with swollen and and infection of his right 2nd toe and foot. He has been non compliant with his diabetic care and had a blood sugar of almost 600 on admission. The presence of osteomyelitis of the 2nd toe is not seen on imaging but he has developed, since yesterday, increased swelling with black areas and an additional fluctuant area on the more proximal lateral foot. He also has a 2nd metatarsal diabetic foot ulcer that is draining pus and is likely the initial source of this extensive right foot infection. CT scan done this morning shows extensive infection with gas-forming organisms. He is taken to surgery now urgently for open amputation and debridement as needed. Findings Extensive soft tissue infection and necrosis with liquefaction and multiple areas of purulent fluid. The 2nd metatarsal ulcer and MTP area of the 2nd toe appeared to be the primary area of the infection. However there was spread of this to the more proximal, lateral foot near the ankle. There was necrotizing infection both in the 2nd metatarsal area, the 2nd metatarsal ulcer, and extending up the forefoot to the proximal lateral abscess noted on exam. In addition to the open amputation of the 2nd metatarsal, there was 14 x 4 x 2 cm debridement aside from that amputation. Description of Procedure Patient was taken to surgery and induced into general anesthesia. The right lower leg and especially the foot were prepped and draped. Initial incision was an elliptical incision around the 2nd toe on the right foot. Abundant purulent fluid came forth. This was cultured for aerobes and anaerobes as well as Gram stain. The purulent fluid was suctioned away. The tissues including the proximal metatarsal of the 2nd toe were so diseased and necrotic that the 2nd toe down to the metatarsal was easily removed. Looking at the skin on either side there was necrotic and infected tissue under the skin in both areas. In some places the skin was necrotic as well. I then looked at the more proximal lateral fluctuant area on the right foot. Incision was made here and abundant purulent fluid came forth from there as well. We debrided and drained this. I then went back to the distal forefoot, just distal to the instep. There was a lot of purulent fluid and necrotic tissue as well as skin here too. This was excised. I then used a curved clamp and passed the clamp from the abscess more proximally on the foot directly to this area. I then opened in the direction of the abscess from the distal foot and also opened from the more proximal foot toward the distal foot and toes. Necrotic and purulent tissue lined this entire tract. I had to excise some skin and opened this entirely to enable debridement of the necrotic subcutaneous tissue muscle. I then went back to the area of the open amputation. I extended the V shaped on the plantar aspect of the open amputation to excise the 2nd metatarsal phalangeal ulcer. This drain directly to the 2nd metatarsal. I then used a periosteal elevator and cleared the distal and some of the proximal 2nd metatarsal. I divided the 2nd metatarsal shaft near the distal end. I then continued to debride necrotic skin, subcutaneous, muscle and periosteum from the open area of the foot. This was continued until there was no necrotic tissue or purulence to be found. There was some bleeding in
[2024-06-08 17:19] LABS: Glucose Point of Care 143 mg/dl (65-105)
[2024-06-08] MEDS: WATER FOR IRRIGATION, STERILE 500 ML BOTTLE (20:00)
[2024-06-08 20:20] LABS: Glucose Point of Care 143 mg/dl (65-105)
[2024-06-08] MEDS: SENNA/DOCUSATE SODIUM TABLET 2 TAB PO (20:55)
[2024-06-08 23:28] LABS: Vancomycin Trough 22.7 ug/mL (10.0-20.0)
[2024-06-09] MEDS: PIPERACILLIN/TAZ 4.5G/NS 100ML 4.5 GM/100 ML BAG IVPB ×4 (00:04→17:44)
[2024-06-09] MEDS: PROCHLORPERAZINE EDISYLATE 10 MG/2 ML VIAL IV PUSH (00:05)
[2024-06-09 02:28] VITALS: BP 166/86; PULSE 85; RESP 16; TEMP 36.1; O2SAT 95
[2024-06-09 05:53] VITALS: BP 164/84; PULSE 87; RESP 13; TEMP 36.2; O2SAT 98
[2024-06-09 06:11] LABS: Basophils Percent Auto 0.3 % (0.2-1.2); Eosinophils Absolute Auto 0.1 K/mm3 (0-0.3); Eosinophils Percent Auto 0.8 % (0-4.4); Hematocrit 33.4 % (42.0-52.0); Lymphocytes Absolute Auto 1.02 K/mm3 (0.9-3.2); Mean Corpuscular HGB Conc 32.9 g/dl (32-36); Mean Corpuscular Hemoglobin 29.6 pg (26-34); Mean Platelet Volume 9.7 fl (7.4-10.4); Monocytes Absolute Auto 0.8 K/mm3 (0.1-0.6); Neutrophils Absolute Auto 8.2 K/mm3 (1.3-6.7); Neutrophils Percent Auto 79.9 % (45.5-73.1); Platelet Count Result 260 k/mm3 (150-375); Red Blood Count 3.71 M/mm3 (4.6-6.20); Red Cell Distribution Width 13.5 % (11.5-14.5); White Blood Count 10.2 K/mm3 (4.5-10.0)
[2024-06-09 06:21] LABS: Alanine Aminotransferase 11 U/L (6-50); Albumin Level 2.6 g/dL (3.5-5.1); Alkaline Phosphatase 65 U/L (38-126); Anion Gap 11 mmol/L (4-12); Aspartate Amino Transferase 20 U/L (17-59); Blood Urea Nitrogen 16 mg/dL (9-20); Calcium 7.1 mg/dL (8.4-10.2); Carbon Dioxide 20 mmol/L (22-30); Chloride 102 mmol/L (98-107); Estimated CRCL calculation 97 ml/min; Estimated Glomerular Filt Rate > 60; Glucose 165 mg/dL (65-110); Magnesium 2.1 mg/dL (1.6-2.3); Potassium 3.5 mmol/L (3.4-5.0); Sodium 133 mmol/L (137-145)
[2024-06-09] MEDS: VANCOMYCIN 2,000 MG/NS 500 ML 2,000 MG/500 ML BAG 250 MG IVPB ×2 (06:26→18:28)
--- NOTE | 2024-06-09 06:57 | P.PNIM_ITS ---
Progress Note: A&P Assessment and Plan (1) Diabetic foot ulcer associated with type 2 diabetes mellitus: Qualifiers: Diabetic foot ulcer location: toe Laterality: right Non-pressure ulcer stage: unspecified non-pressure ulcer stage Qualified Code(s): E11.621 - Type 2 diabetes mellitus with foot ulcer; L97.519 - Non-pressure chronic ulcer of other part of right foot with unspecified severity Code(s): E11.621 - Type 2 diabetes mellitus with foot ulcer; L97.509 - Non-pressure chronic ulcer of other part of unspecified foot with unspecified severity Status: Acute Assessment and Plan: * Leukocytosis 13.4, afebrile, lactic 1.6, procal 8.9 * Started on Cefepime, Flagyl, Vancomycin * CT of the right foot mentions no specific evidence of osteomyelitis, dislocation of second metatarsophalangeal joint, polyarticular arthritis. It also mentions soft tissue gas to the plantar head of the second metatarsal. This was palpable on exam. * Blood cultures with no growth to date * CRP > 45.0 * DVT prophylaxis with Lovenox * POD 1 from right 2nd toe amputation and extensive debridement of necrotizing soft tissue infection. * Wound cultures take in OR are pending * Cefepime and Flagyl d/c'd per surgery. Continue with vancomycin and await culture * Wound care consulted by surgery---may be able to have a wound vac??? * WBC down trending 14.5-->13.4-->13.1-->10.2 (2) Uncontrolled diabetes mellitus: Qualifiers: Diabetes mellitus type: type 2 Glycemic state: with hyperglycemia Qualified Code(s): E11.65 - Type 2 diabetes mellitus with hyperglycemia Status: Acute Assessment and Plan: Patient has a history of diabetes but has not been able to get his medications due to lack of insurance. * Started on 70/[address] Stokes recommendations as this is more affordable without insurance * SSI high dose sliding scale * Fasting blood glucose 165. POC ranging from 143-219 * AC/HS accu checks, hypoglycemia protocol * Hemoglobin A1C 13.9% * Consult to the informatics educator, recmena appreciated (3) Nausea & vomiting: Code(s): R11.2 - Nausea with vomiting, unspecified Status: Acute Assessment and Plan: Persistent nausea and vomiting for the last week. Likely multifactorial given hyperglycemia vs possible gastroparesis vs COVID vs viral gastroenteritis * Zofran PRN, added Compazine * IVF * Clear liquids recommended * Lipase 21 * T-bili mildly elevated 2.8 * No abdominal pain, abdomen is soft and non-tender, passing flatus, and having bowel movements. * Nearly resolved today now that blood sugar is more controlled RESOLVED (4) HTN (hypertension): Code(s): I10 - Essential (primary) hypertension Status: Acute Assessment and Plan: Blood pressures on admission 129/87 mmhg. Now 140-150's systolic. Patient is not on anti-hypertensives at home. * Elevation could be from IVF. He is on a regular diet. Will decrease fluids and possibly d/c all together if his nausea, vomiting has resolved. * If his blood pressures are persistently elevated may consider adding medications (5) COVID: Code(s): U07.1 - COVID-19 Status: Acute Assessment and Plan: He reports having upper respiratory symptoms that started a week ago, he thought he had a cold. He reports a dry non-productive cough but otherwise no respiratory symptoms. * COVID + on admission * conservative treatment * droplet precautions (6) FEMI (obstructive sleep apnea): Code(s): G47.33 - Obstructive sleep apnea (adult) (pediatric)
--- NOTE | 2024-06-09 06:57 | PM.IMPN ---
Progress Note: A&P Assessment and Plan (1) Diabetic foot ulcer associated with type 2 diabetes mellitus: Qualifiers: Diabetic foot ulcer location: toe Laterality: right Non-pressure ulcer stage: unspecified non-pressure ulcer stage Qualified Code(s): E11.621 - Type 2 diabetes mellitus with foot ulcer; L97.519 - Non-pressure chronic ulcer of other part of right foot with unspecified severity Code(s): E11.621 - Type 2 diabetes mellitus with foot ulcer; L97.509 - Non-pressure chronic ulcer of other part of unspecified foot with unspecified severity Status: Acute Assessment and Plan: Leukocytosis 13.4, afebrile, lactic 1.6, procal 8.9 Started on Cefepime, Flagyl, Vancomycin CT of the right foot mentions no specific evidence of osteomyelitis, dislocation of second metatarsophalangeal joint, polyarticular arthritis. It also mentions soft tissue gas to the plantar head of the second metatarsal. This was palpable on exam. Blood cultures with no growth to date CRP > 45.0 DVT prophylaxis with Lovenox POD 1 from right 2nd toe amputation and extensive debridement of necrotizing soft tissue infection. Wound cultures take in OR are pending Cefepime and Flagyl d/c'd per surgery. Continue with vancomycin and await culture Wound care consulted by surgery---may be able to have a wound vac??? WBC down trending 14.5-->13.4-->13.1-->10.2 (2) Uncontrolled diabetes mellitus: Qualifiers: Diabetes mellitus type: type 2 Glycemic state: with hyperglycemia Qualified Code(s): E11.65 - Type 2 diabetes mellitus with hyperglycemia Status: Acute Assessment and Plan: Patient has a history of diabetes but has not been able to get his medications due to lack of insurance. Started on 70/[address] Stokes recommendations as this is more affordable without insurance SSI high dose sliding scale Fasting blood glucose 165. POC ranging from 143-219 AC/HS accu checks, hypoglycemia protocol Hemoglobin A1C 13.9% Consult to the tobacco educator, mulu appreciated (3) Nausea & vomiting: Code(s): R11.2 - Nausea with vomiting, unspecified Status: Acute Assessment and Plan: Persistent nausea and vomiting for the last week. Likely multifactorial given hyperglycemia vs possible gastroparesis vs COVID vs viral gastroenteritis Zofran PRN, added Compazine IVF Clear liquids recommended Lipase 21 T-bili mildly elevated 2.8 No abdominal pain, abdomen is soft and non-tender, passing flatus, and having bowel movements. Nearly resolved today now that blood sugar is more controlled RESOLVED (4) HTN (hypertension): Code(s): I10 - Essential (primary) hypertension Status: Acute Assessment and Plan: Blood pressures on admission 129/87 mmhg. Now 140-150's systolic. Patient is not on anti-hypertensives at home. Elevation could be from IVF. He is on a regular diet. Will decrease fluids and possibly d/c all together if his nausea, vomiting has resolved. If his blood pressures are persistently elevated may consider adding medications (5) COVID: Code(s): U07.1 - COVID-19 Status: Acute Assessment and Plan: He reports having upper respiratory symptoms that started a week ago, he thought he had a cold. He reports a dry non-productive cough but otherwise no respiratory symptoms. COVID + on admission conservative treatment droplet precautions (6) FEMI (obstructive sleep apnea): Code(s): G47.33 - Obstructive sleep apnea (adult) (pediatric) Status: Acute Assessment and Plan: Concerns for obstructive sleep apnea so an apnea link was preformed Apnea link reports AHI of 70.1, JOSELINE 74.8 Average saturation was 95%, lowest saturation 76% Total desaturations of 517. He had 10 minutes of saturation less than 88%, 3 minutes less than 80% He will need a formal sleep study as an outpatient for CPAP While inp
[2024-06-09] MEDS: ACETAMINOPHEN 500 MG TABLET PO (07:27)
[2024-06-09 08:05] LABS: Glucose Point of Care 154 mg/dl (65-105)
[2024-06-09] MEDS: PANTOPRAZOLE 40 MG TABLET PO (10:11)
[2024-06-09] MEDS: ENOXAPARIN 40 MG/0.4 ML SYRINGE SUB-Q (10:11)
[2024-06-09 11:53] LABS: Glucose Point of Care 218 mg/dl (65-105)
--- NOTE | 2024-06-09 12:19 | PM.PNGS ---
Progress Note: A&P Assessment and Plan (1) Necrotizing fasciitis of lower leg: Code(s): M72.6 - Necrotizing fasciitis Status: Acute Assessment and Plan: Wounds look good. No residual purulence and minimal, if any, necrotic tissue. Wound redressed with iodoform Nu Gauze, gauze and Kerlix/Chris wrap. Keep foot elevated. Can ambulate with heel touch weight-bearing. Recheck again tomorrow. (2) Diabetic foot infection: Code(s): E11.628 - Type 2 diabetes mellitus with other skin complications; L08.9 - Local infection of the skin and subcutaneous tissue, unspecified Status: Acute Assessment and Plan: Continue IV antibiotics for now (3) Diabetic foot ulcer associated with type 2 diabetes mellitus: Qualifiers: Diabetic foot ulcer location: toe Laterality: right Non-pressure ulcer stage: unspecified non-pressure ulcer stage Qualified Code(s): E11.621 - Type 2 diabetes mellitus with foot ulcer; L97.519 - Non-pressure chronic ulcer of other part of right foot with unspecified severity Code(s): E11.621 - Type 2 diabetes mellitus with foot ulcer; L97.509 - Non-pressure chronic ulcer of other part of unspecified foot with unspecified severity Status: Acute Assessment and Plan: 2nd metatarsal diabetic foot ulcer excised at surgery. Subjective Subjective Date/Time Seen: 06/09/24 12:19 Post Op day: 1 Patient reports: no new complaints, feels better and afebrile Exam Const: General: comfortable Extrem: Right lower extremity: foot (Wound looks good, no purulence seen.) Details: normal capillary refill, edema (Less edema than yesterday) and vascular exam Details: posterior tibial pulse present (3+ posterior tibial pulse); no tenderness and no crepitus Objective Data Vital Signs Vital Signs: Vital Signs - 24 hr 06/08/24 13:27 06/08/24 16:15 06/08/24 16:30 Temperature 36.2 C L 37.2 C Pulse Rate 90 98 91 Respiratory Rate 16 20 18 Blood Pressure 149/73 H 147/86 H 122/78 Pulse Oximetry 99 100 100 Oxygen Delivery Simple Face Mask Nasal Cannula Oxygen Flow Rate 6 2 06/08/24 16:45 06/08/24 16:55 06/08/24 17:09 Temperature 36.4 C L 36.5 C Pulse Rate 90 93 90 Respiratory Rate 18 18 18 Blood Pressure 148/79 H 138/79 141/85 H Pulse Oximetry 98 100 100 Oxygen Delivery Nasal Cannula Nasal Cannula Oxygen Flow Rate 2 2 06/08/24 17:25 06/08/24 17:55 06/08/24 19:37 Temperature 36.5 C 36.4 C L 36.9 C Pulse Rate 88 90 93 Respiratory Rate 17 18 17 Blood Pressure 135/73 133/82 134/76 Pulse Oximetry 99 100 100 Oxygen Delivery Oxygen Flow Rate 06/08/24 20:52 06/08/24 21:31 06/09/24 02:28 Temperature 36.2 C L 36.1 C L Pulse Rate 98 87 85 Respiratory Rate 14 16 Blood Pressure 150/79 H 166/86 H Pulse Oximetry 100 97 95 Oxygen Delivery CPAP Oxygen Flow Rate 06/09/24 05:53 Temperature 36.2 C L Pulse Rate 87 Respiratory Rate 13 Blood Pressure 164/84 H Pulse Oximetry 98 Oxygen Delivery Oxygen Flow Rate Intake/Output Intake/Output: Intake & Output 06/06/24 06/07/24 06/08/24 06/09/24 23:59 23:59 23:59 23:59 Intake Total 3200 4068.8 4980 870 Output Total 1 Balance 3200 4067.8 4980 870 Meds/Results Medications: Active Medications Generic Name Dose Route Start Last Admin Trade Name Freq PRN Reason Stop Dose Admin Acetaminophen 500 mg 06/08/24 16:56 06/09/24 07:27 Acetaminophen 500 Mg Tablet PO 500 mg Q6H PRN Administration Pain Rated 1-3 Dextrose 12.5 gm 06/06/24 18:06 Dextrose 50% 25 Gm/50 Ml Syringe IV PUSH PRN PRN Hypoglycemia Protocol Diphenhydramine HCl 25 mg 06/08/24 16:56 Diphenhydramine Hcl Inj 50 Mg/Ml Vial IV PUSH Q6H PRN Itching Enoxaparin Sodium 40 mg 06/07/24 09:00 06/09/24 10:11 Enoxaparin 40 Mg/0.4 Ml Syringe SUB-Q 40 mg DAILY ARLEEN Administration Fentanyl Citrate 12.5 mcg 06/08/24 16:56 Fentanyl Citrate Inj (*Crx) 100 Mcg/2 Ml V
[2024-06-09] MEDS: INSULIN ASPART (*BKC) 100 UNITS/ML SUB-Q ×2 (12:33→17:43)
[2024-06-09 16:00] VITALS: BP 140/75; PULSE 88; RESP 18; TEMP 36.8; O2SAT 98
[2024-06-09 17:12] LABS: Glucose Point of Care 202 mg/dl (65-105)
[2024-06-09] MEDS: INSULIN HUMAN ISOPHAN/REGULAR 70/30 (*BKC) 100 UNITS/ML 12 UNITS SUB-Q (17:44)
[2024-06-09 20:56] LABS: Glucose Point of Care 178 mg/dl (65-105)
[2024-06-09] MEDS: SENNA/DOCUSATE SODIUM TABLET 2 TAB PO (21:14)
[2024-06-09] MEDS: MELATONIN 5 MG TABLET PO (21:14)
[2024-06-10] MEDS: ACETAMINOPHEN 500 MG TABLET PO (00:40)
[2024-06-10] MEDS: PIPERACILLIN/TAZ 4.5G/NS 100ML 4.5 GM/100 ML BAG IVPB ×2 (00:41→06:32)
--- NOTE | 2024-06-10 06:48 | P.PNIM_ITS ---
Progress Note: A&P Assessment and Plan (1) Diabetic foot ulcer associated with type 2 diabetes mellitus: Qualifiers: Diabetic foot ulcer location: toe Laterality: right Non-pressure ulcer stage: unspecified non-pressure ulcer stage Qualified Code(s): E11.621 - Type 2 diabetes mellitus with foot ulcer; L97.519 - Non-pressure chronic ulcer of other part of right foot with unspecified severity Code(s): E11.621 - Type 2 diabetes mellitus with foot ulcer; L97.509 - Non-pressure chronic ulcer of other part of unspecified foot with unspecified severity Status: Acute Assessment and Plan: * Leukocytosis 13.4, afebrile, lactic 1.6, procal 8.9 * Started on Cefepime, Flagyl, Vancomycin * CT of the right foot mentions no specific evidence of osteomyelitis, dislocation of second metatarsophalangeal joint, polyarticular arthritis. It also mentions soft tissue gas to the plantar head of the second metatarsal. This was palpable on exam. * Blood cultures with no growth to date * CRP > 45.0 * DVT prophylaxis with Lovenox * POD 1 from right 2nd toe amputation and extensive debridement of necrotizing soft tissue infection. * Wound cultures take in OR * Cefepime and Flagyl d/c'd per surgery. Continue with vancomycin. Culture started growing group B strep. Zosyn was added. * Wound care consulted by surgery---may be able to have a wound vac??? * WBC down trending 14.5-->13.4-->13.1-->10.2-->6.5 (2) Uncontrolled diabetes mellitus: Qualifiers: Diabetes mellitus type: type 2 Glycemic state: with hyperglycemia Qualified Code(s): E11.65 - Type 2 diabetes mellitus with hyperglycemia Status: Acute Assessment and Plan: Patient has a history of diabetes but has not been able to get his medications due to lack of insurance. * Started on 70/[address] Stokes recommendations as this is more affordable without insurance * SSI high dose sliding scale * Fasting blood glucose 165. POC ranging from 143-219 * AC/HS accu checks, hypoglycemia protocol * Hemoglobin A1C 13.9% * Consult to the nurses educator, recs appreciated (3) Nausea & vomiting: Code(s): R11.2 - Nausea with vomiting, unspecified Status: Acute Assessment and Plan: Persistent nausea and vomiting for the last week. Likely multifactorial given hyperglycemia vs possible gastroparesis vs COVID vs viral gastroenteritis * Zofran PRN, added Compazine * IVF * Clear liquids recommended * Lipase 21 * T-bili mildly elevated 2.8 * No abdominal pain, abdomen is soft and non-tender, passing flatus, and having bowel movements. * Nearly resolved today now that blood sugar is more controlled RESOLVED (4) HTN (hypertension): Code(s): I10 - Essential (primary) hypertension Status: Acute Assessment and Plan: Blood pressures on admission 129/87 mmhg. Now 140-150's systolic. Patient is not on anti-hypertensives at home. * Elevation could be from IVF. He is on a regular diet. Will decrease fluids and possibly d/c all together if his nausea, vomiting has resolved. * Losartan 50 mg PO daily started 06/10 * 140-160/70-80's, HR 70's (5) COVID: Code(s): U07.1 - COVID-19 Status: Acute Assessment and Plan: He reports having upper respiratory symptoms that started a week ago, he thought he had a cold. He reports a dry non-productive cough but otherwise no respiratory symptoms. * COVID + on admission * conservative treatment * droplet precautions (6) FEMI (obstructive sleep apnea): Code(s): G47.33 - Obstructive sleep apnea (adult)
--- NOTE | 2024-06-10 06:48 | PM.IMPN ---
Progress Note: A&P Assessment and Plan (1) Diabetic foot ulcer associated with type 2 diabetes mellitus: Qualifiers: Diabetic foot ulcer location: toe Laterality: right Non-pressure ulcer stage: unspecified non-pressure ulcer stage Qualified Code(s): E11.621 - Type 2 diabetes mellitus with foot ulcer; L97.519 - Non-pressure chronic ulcer of other part of right foot with unspecified severity Code(s): E11.621 - Type 2 diabetes mellitus with foot ulcer; L97.509 - Non-pressure chronic ulcer of other part of unspecified foot with unspecified severity Status: Acute Assessment and Plan: Leukocytosis 13.4, afebrile, lactic 1.6, procal 8.9 Started on Cefepime, Flagyl, Vancomycin CT of the right foot mentions no specific evidence of osteomyelitis, dislocation of second metatarsophalangeal joint, polyarticular arthritis. It also mentions soft tissue gas to the plantar head of the second metatarsal. This was palpable on exam. Blood cultures with no growth to date CRP > 45.0 DVT prophylaxis with Lovenox POD 1 from right 2nd toe amputation and extensive debridement of necrotizing soft tissue infection. Wound cultures take in OR Cefepime and Flagyl d/c'd per surgery. Continue with vancomycin. Culture started growing group B strep. Zosyn was added. Wound care consulted by surgery---may be able to have a wound vac??? WBC down trending 14.5-->13.4-->13.1-->10.2-->6.5 (2) Uncontrolled diabetes mellitus: Qualifiers: Diabetes mellitus type: type 2 Glycemic state: with hyperglycemia Qualified Code(s): E11.65 - Type 2 diabetes mellitus with hyperglycemia Status: Acute Assessment and Plan: Patient has a history of diabetes but has not been able to get his medications due to lack of insurance. Started on 70/[address] Stokes recommendations as this is more affordable without insurance SSI high dose sliding scale Fasting blood glucose 165. POC ranging from 143-219 AC/HS accu checks, hypoglycemia protocol Hemoglobin A1C 13.9% Consult to the music educator, recmena appreciated (3) Nausea & vomiting: Code(s): R11.2 - Nausea with vomiting, unspecified Status: Acute Assessment and Plan: Persistent nausea and vomiting for the last week. Likely multifactorial given hyperglycemia vs possible gastroparesis vs COVID vs viral gastroenteritis Zofran PRN, added Compazine IVF Clear liquids recommended Lipase 21 T-bili mildly elevated 2.8 No abdominal pain, abdomen is soft and non-tender, passing flatus, and having bowel movements. Nearly resolved today now that blood sugar is more controlled RESOLVED (4) HTN (hypertension): Code(s): I10 - Essential (primary) hypertension Status: Acute Assessment and Plan: Blood pressures on admission 129/87 mmhg. Now 140-150's systolic. Patient is not on anti-hypertensives at home. Elevation could be from IVF. He is on a regular diet. Will decrease fluids and possibly d/c all together if his nausea, vomiting has resolved. Losartan 50 mg PO daily started 06/10 140-160/70-80's, HR 70's (5) COVID: Code(s): U07.1 - COVID-19 Status: Acute Assessment and Plan: He reports having upper respiratory symptoms that started a week ago, he thought he had a cold. He reports a dry non-productive cough but otherwise no respiratory symptoms. COVID + on admission conservative treatment droplet precautions (6) FEMI (obstructive sleep apnea): Code(s): G47.33 - Obstructive sleep apnea (adult) (pediatric) Status: Acute Assessment and Plan: Concerns for obstructive sleep apnea so an apnea link was preformed Apnea link reports AHI of 70.1, JOSELINE 74.8 Average saturation was 95%, lowest saturation 76% Total desaturations of 517. He had 10 minutes of saturation less than 88%, 3 minutes less than 80% He will need a formal sleep study as an outpatient for
[2024-06-10 06:49] VITALS: BP 166/79; PULSE 79; RESP 16; TEMP 36.3; O2SAT 98
[2024-06-10 06:51] LABS: Basophils Percent Auto 0.6 % (0.2-1.2); Eosinophils Absolute Auto 0.3 K/mm3 (0-0.3); Hematocrit 34.1 % (42.0-52.0); Hemoglobin 11.2 g/dL (14.0-18.0); Immature Granulocyte Absolute 0.08 K/mm3 (0.00-0.031); Immature Granulocyte Percent A 1.2 % (0-0.5); Lymphocytes Absolute Auto 1.19 K/mm3 (0.9-3.2); Lymphocytes Percent Auto 18.3 % (18.3-44.2); Mean Corpuscular HGB Conc 32.8 g/dl (32-36); Mean Corpuscular Hemoglobin 29.2 pg (26-34); Mean Platelet Volume 9.4 fl (7.4-10.4); Monocytes Absolute Auto 0.6 K/mm3 (0.1-0.6); Monocytes Percent Auto 8.9 % (2.6-8.5); Neutrophils Absolute Auto 4.4 K/mm3 (1.3-6.7); Platelet Count Result 297 k/mm3 (150-375); Red Blood Count 3.83 M/mm3 (4.6-6.20); Red Cell Distribution Width 13.8 % (11.5-14.5); White Blood Count 6.5 K/mm3 (4.5-10.0)
[2024-06-10 07:03] LABS: Alanine Aminotransferase 13 U/L (6-50); Albumin Level 2.7 g/dL (3.5-5.1); Alkaline Phosphatase 80 U/L (38-126); Anion Gap 12 mmol/L (4-12); Aspartate Amino Transferase 22 U/L (17-59); Bilirubin,Total 1.2 mg/dL (0.2-1.3); Blood Urea Nitrogen 14 mg/dL (9-20); Calcium 7.5 mg/dL (8.4-10.2); Carbon Dioxide 21 mmol/L (22-30); Chloride 103 mmol/L (98-107); Estimated CRCL calculation 106 ml/min; Estimated Glomerular Filt Rate > 60; Glucose 157 mg/dL (65-110); Potassium 3.3 mmol/L (3.4-5.0); Sodium 136 mmol/L (137-145)
[2024-06-10] MEDS: VANCOMYCIN 2,000 MG/NS 500 ML 2,000 MG/500 ML BAG 250 MG IVPB (07:16)
[2024-06-10 08:00] VITALS: BP 157/90; PULSE 76; RESP 18; TEMP 36.1; O2SAT 98
[2024-06-10 08:09] LABS: Glucose Point of Care 142 mg/dl (65-105)
[2024-06-10] MEDS: INSULIN HUMAN ISOPHAN/REGULAR 70/30 (*BKC) 100 UNITS/ML 12 UNITS SUB-Q ×2 (10:01→17:15)
[2024-06-10] MEDS: PANTOPRAZOLE 40 MG TABLET PO (10:03)
[2024-06-10] MEDS: ENOXAPARIN 40 MG/0.4 ML SYRINGE SUB-Q (10:03)
[2024-06-10] MEDS: POTASSIUM CHLORIDE 20 MEQ ER TABLET 40 MEQ PO (10:03)
[2024-06-10 11:58] LABS: Glucose Point of Care 171 mg/dl (65-105)
--- NOTE | 2024-06-10 12:16 | PM.PNGS ---
Progress Note: A&P Assessment and Plan (1) Necrotizing fasciitis of lower leg: Code(s): M72.6 - Necrotizing fasciitis Status: Acute Assessment and Plan: Wound care nurse consulted and evaluated patient today. Will start silver gel dressing changes with iodoform packing and cover with 4x4, ABD, and Kerlix/oni wrap. There is a small area with scant purulent drainage towards the plantar aspect of the wound with tunneling. This was packed today and will be reevaluated tomorrow. Keep foot elevated. Can ambulate with heel touch weight-bearing. Recheck again tomorrow. (2) Diabetic foot infection: Code(s): E11.628 - Type 2 diabetes mellitus with other skin complications; L08.9 - Local infection of the skin and subcutaneous tissue, unspecified Status: Acute Assessment and Plan: Wound cultures growing Group B strep. IV antibiotics switched to IV Cefazolin. (3) Diabetic foot ulcer associated with type 2 diabetes mellitus: Qualifiers: Diabetic foot ulcer location: toe Laterality: right Non-pressure ulcer stage: unspecified non-pressure ulcer stage Qualified Code(s): E11.621 - Type 2 diabetes mellitus with foot ulcer; L97.519 - Non-pressure chronic ulcer of other part of right foot with unspecified severity Code(s): E11.621 - Type 2 diabetes mellitus with foot ulcer; L97.509 - Non-pressure chronic ulcer of other part of unspecified foot with unspecified severity Status: Acute Assessment and Plan: 2nd metatarsal diabetic foot ulcer excised at surgery. Plan I have discussed the patient's case and plan of care with Dr. Jauregui. Subjective Subjective Date/Time Seen: 06/10/24 10:36 Patient reports: no new complaints and afebrile Interval history: Patient seen with wound care nurse for dressing change. No acute issues overnight or specific complaints at this time. He plans to have his niece help him with dressing changes after discharge. She helped him with his left toe amputation dressing changes previously. Exam Const: General: comfortable and no acute distress Orientation/consciousness: patient oriented x3 Extrem: Other: Right foot dressing removed. Amputation site and wound appears fairly healthy other than a small area of some soft lan necrotic tissue at the dorsal aspect of the proximal wound, there is also an area of tunneling on the plantar aspect of the wound that tunnels proximally about 2-3 cm with scant purulent drainage. No tenderness, although he has diminished sensation d/t neuropathy. No crepitus. Objective Data Vital Signs Vital Signs: Vital Signs - 24 hr 06/09/24 16:00 06/10/24 06:49 06/10/24 08:00 Temperature 98.3 F 97.4 F L 96.9 F L Pulse Rate 88 79 76 Respiratory Rate 18 16 18 Blood Pressure 140/75 166/79 H 157/90 H Pulse Oximetry 98 98 98 Intake/Output Intake/Output: Intake & Output 06/07/24 06/08/24 06/09/24 06/10/24 23:59 23:59 23:59 23:59 Intake Total 4068.8 4980 2410 1100 Output Total 1 950 Balance 4067.8 4980 2410 150 Meds/Results Medications: Active Medications Generic Name Dose Route Start Last Admin Trade Name Freq PRN Reason Stop Dose Admin Acetaminophen 500 mg 06/08/24 16:56 06/10/24 00:40 Acetaminophen 500 Mg Tablet PO 500 mg Q6H PRN Administration Pain Rated 1-3 Dextrose 12.5 gm 06/06/24 18:06 Dextrose 50% 25 Gm/50 Ml Syringe IV PUSH PRN PRN Hypoglycemia Protocol Diphenhydramine HCl 25 mg 06/08/24 16:56 Diphenhydramine Hcl Inj 50 Mg/Ml Vial IV PUSH Q6H PRN Itching Enoxaparin Sodium 40 mg 06/07/24 09:00 06/10/24 10:03 Enoxaparin 40 Mg/0.4 Ml Syringe SUB-Q 40 mg DAILY ARLEEN Administration Fentanyl Citrate 12.5 mcg 06/08/24 16:56 Fentanyl Citrate Inj (*Crx) 100 Mcg/2 Ml Vial IV PUSH Q2H PRN Breakthrough Pain Rated 4-6 or NPO Fentanyl Citrate 25 mcg 06/08/24 16:56 Fentanyl Citrate Inj (*Crx) 100 Mcg/2 Ml Vial IV PUSH
[2024-06-10 16:00] VITALS: BP 166/92; PULSE 81; RESP 18; TEMP 36.4; O2SAT 100
[2024-06-10] MEDS: ceFAZolin 2 GM/D5W 50 ML 2 GM/50 ML BAG IVPB ×2 (16:06→20:31)
[2024-06-10] MEDS: LOSARTAN POTASSIUM 50 MG TABLET PO (16:23)
[2024-06-10 17:05] LABS: Glucose Point of Care 193 mg/dl (65-105)
[2024-06-10 17:31] LABS: Vancomycin Trough 16.1 ug/mL (10.0-20.0)
[2024-06-10 20:17] LABS: Glucose Point of Care 206 mg/dl (65-105)
[2024-06-10] MEDS: MELATONIN 5 MG TABLET PO (20:30)
[2024-06-10] MEDS: SENNA/DOCUSATE SODIUM TABLET 2 TAB PO (20:30)
[2024-06-10] MEDS: INSULIN ASPART (*BKC) 100 UNITS/ML SUB-Q (20:31)
[2024-06-10 22:39] VITALS: BP 147/85; PULSE 82; RESP 18; TEMP 36.8; O2SAT 99
[2024-06-11 05:48] VITALS: BP 165/73; PULSE 95; RESP 18; TEMP 36.8; O2SAT 99
[2024-06-11] MEDS: ceFAZolin 2 GM/D5W 50 ML 2 GM/50 ML BAG IVPB ×3 (05:53→21:31)
[2024-06-11 06:42] LABS: Basophils Absolute Auto 0.1 K/mm3 (0.0-0.1); Basophils Percent Auto 0.7 % (0.2-1.2); Eosinophils Absolute Auto 0.3 K/mm3 (0-0.3); Hematocrit 34.5 % (42.0-52.0); Hemoglobin 11.1 g/dL (14.0-18.0); Immature Granulocyte Absolute 0.16 K/mm3 (0.00-0.031); Immature Granulocyte Percent A 2.2 % (0-0.5); Lymphocytes Absolute Auto 1.45 K/mm3 (0.9-3.2); Lymphocytes Percent Auto 20.1 % (18.3-44.2); Mean Corpuscular HGB Conc 32.2 g/dl (32-36); Mean Corpuscular Hemoglobin 29.1 pg (26-34); Mean Corpuscular Volume 90.6 fl (80-100); Monocytes Absolute Auto 0.6 K/mm3 (0.1-0.6); Neutrophils Absolute Auto 4.7 K/mm3 (1.3-6.7); Platelet Count Result 348 k/mm3 (150-375); Red Blood Count 3.81 M/mm3 (4.6-6.20); White Blood Count 7.2 K/mm3 (4.5-10.0)
[2024-06-11 06:59] LABS: Alanine Aminotransferase 14 U/L (6-50); Albumin Level 2.8 g/dL (3.5-5.1); Alkaline Phosphatase 79 U/L (38-126); Anion Gap 9 mmol/L (4-12); Aspartate Amino Transferase 24 U/L (17-59); Bilirubin,Total 0.9 mg/dL (0.2-1.3); Blood Urea Nitrogen 10 mg/dL (9-20); Calcium 7.8 mg/dL (8.4-10.2); Carbon Dioxide 22 mmol/L (22-30); Chloride 104 mmol/L (98-107); Estimated CRCL calculation 117 ml/min; Estimated Glomerular Filt Rate > 60; Glucose 177 mg/dL (65-110); Magnesium 1.9 mg/dL (1.6-2.3); Potassium 3.4 mmol/L (3.4-5.0); Sodium 135 mmol/L (137-145)
[2024-06-11 07:46] LABS: Glucose Point of Care 173 mg/dl (65-105)
--- NOTE | 2024-06-11 08:28 | P.PNIM_ITS ---
Progress Note: A&P Assessment and Plan (1) Diabetic foot ulcer associated with type 2 diabetes mellitus: Qualifiers: Diabetic foot ulcer location: toe Laterality: right Non-pressure ulcer stage: unspecified non-pressure ulcer stage Qualified Code(s): E11.621 - Type 2 diabetes mellitus with foot ulcer; L97.519 - Non-pressure chronic ulcer of other part of right foot with unspecified severity Code(s): E11.621 - Type 2 diabetes mellitus with foot ulcer; L97.509 - Non-pressure chronic ulcer of other part of unspecified foot with unspecified severity Status: Acute Assessment and Plan: * Leukocytosis 13.4, afebrile, lactic 1.6, procal 8.9 * Started on Cefepime, Flagyl, Vancomycin * CT of the right foot mentions no specific evidence of osteomyelitis, dislocation of second metatarsophalangeal joint, polyarticular arthritis. It also mentions soft tissue gas to the plantar head of the second metatarsal. This was palpable on exam. * Blood cultures with no growth to date * CRP > 45.0 * DVT prophylaxis with Lovenox * POD 1 from right 2nd toe amputation and extensive debridement of necrotizing soft tissue infection. * Wound cultures take in OR * Cefepime and Flagyl d/c'd per surgery. Culture started growing group B strep. Zosyn was added and switched to Cefazolin. Vancomycin stopped. * Wound care consulted by surgery---Will need daily dressing changes which will be completed by his son and niece. Patient cannot get a wound vac as he does not have insurance or established PCP. * Surgery is thinking he will be ready for discharge by the end of the week. He will probably not even need PO antibiotics at discharge. * WBC down trending 14.5-->13.4-->13.1-->10.2-->6.5 (2) Uncontrolled diabetes mellitus: Qualifiers: Diabetes mellitus type: type 2 Glycemic state: with hyperglycemia Qualified Code(s): E11.65 - Type 2 diabetes mellitus with hyperglycemia Status: Acute Assessment and Plan: Patient has a history of diabetes but has not been able to get his medications due to lack of insurance. * Started on 70/[address] Stokes recommendations as this is more affordable without insurance * SSI high dose sliding scale * Fasting blood glucose 165. POC ranging from 143-219 * AC/HS accu checks, hypoglycemia protocol * Hemoglobin A1C 13.9% * Consult to the inclusion paraeducator, recs appreciated (3) Nausea & vomiting: Code(s): R11.2 - Nausea with vomiting, unspecified Status: Acute Assessment and Plan: Persistent nausea and vomiting for the last week. Likely multifactorial given hyperglycemia vs possible gastroparesis vs COVID vs viral gastroenteritis * Zofran PRN, added Compazine * IVF * Clear liquids recommended * Lipase 21 * T-bili mildly elevated 2.8 * No abdominal pain, abdomen is soft and non-tender, passing flatus, and having bowel movements. * Nearly resolved today now that blood sugar is more controlled RESOLVED (4) HTN (hypertension): Code(s): I10 - Essential (primary) hypertension Status: Acute Assessment and Plan: Blood pressures on admission 129/87 mmhg. Now 140-150's systolic. Patient is not on anti-hypertensives at home. * Elevation could be from IVF. He is on a regular diet. Will decrease fluids and possibly d/c all together if his nausea, vomiting has resolved. * Losartan 50 mg PO daily started 06/10 * 140-160/70-80's, HR 70's (5) COVID: Code(s): U07.1 - COVID-19 Status: Acute Assessment and Plan: He reports having upper respiratory symptoms that started a week ago,
--- NOTE | 2024-06-11 08:28 | PM.IMPN ---
Progress Note: A&P Assessment and Plan (1) Diabetic foot ulcer associated with type 2 diabetes mellitus: Qualifiers: Diabetic foot ulcer location: toe Laterality: right Non-pressure ulcer stage: unspecified non-pressure ulcer stage Qualified Code(s): E11.621 - Type 2 diabetes mellitus with foot ulcer; L97.519 - Non-pressure chronic ulcer of other part of right foot with unspecified severity Code(s): E11.621 - Type 2 diabetes mellitus with foot ulcer; L97.509 - Non-pressure chronic ulcer of other part of unspecified foot with unspecified severity Status: Acute Assessment and Plan: Leukocytosis 13.4, afebrile, lactic 1.6, procal 8.9 Started on Cefepime, Flagyl, Vancomycin CT of the right foot mentions no specific evidence of osteomyelitis, dislocation of second metatarsophalangeal joint, polyarticular arthritis. It also mentions soft tissue gas to the plantar head of the second metatarsal. This was palpable on exam. Blood cultures with no growth to date CRP > 45.0 DVT prophylaxis with Lovenox POD 1 from right 2nd toe amputation and extensive debridement of necrotizing soft tissue infection. Wound cultures take in OR Cefepime and Flagyl d/c'd per surgery. Culture started growing group B strep. Zosyn was added and switched to Cefazolin. Vancomycin stopped. Wound care consulted by surgery---Will need daily dressing changes which will be completed by his son and niece. Patient cannot get a wound vac as he does not have insurance or established PCP. Surgery is thinking he will be ready for discharge by the end of the week. He will probably not even need PO antibiotics at discharge. WBC down trending 14.5-->13.4-->13.1-->10.2-->6.5 (2) Uncontrolled diabetes mellitus: Qualifiers: Diabetes mellitus type: type 2 Glycemic state: with hyperglycemia Qualified Code(s): E11.65 - Type 2 diabetes mellitus with hyperglycemia Status: Acute Assessment and Plan: Patient has a history of diabetes but has not been able to get his medications due to lack of insurance. Started on 70/[address] Stokes recommendations as this is more affordable without insurance SSI high dose sliding scale Fasting blood glucose 165. POC ranging from 143-219 AC/HS accu checks, hypoglycemia protocol Hemoglobin A1C 13.9% Consult to the clinical informatics educator, recs appreciated (3) Nausea & vomiting: Code(s): R11.2 - Nausea with vomiting, unspecified Status: Acute Assessment and Plan: Persistent nausea and vomiting for the last week. Likely multifactorial given hyperglycemia vs possible gastroparesis vs COVID vs viral gastroenteritis Zofran PRN, added Compazine IVF Clear liquids recommended Lipase 21 T-bili mildly elevated 2.8 No abdominal pain, abdomen is soft and non-tender, passing flatus, and having bowel movements. Nearly resolved today now that blood sugar is more controlled RESOLVED (4) HTN (hypertension): Code(s): I10 - Essential (primary) hypertension Status: Acute Assessment and Plan: Blood pressures on admission 129/87 mmhg. Now 140-150's systolic. Patient is not on anti-hypertensives at home. Elevation could be from IVF. He is on a regular diet. Will decrease fluids and possibly d/c all together if his nausea, vomiting has resolved. Losartan 50 mg PO daily started 06/10 140-160/70-80's, HR 70's (5) COVID: Code(s): U07.1 - COVID-19 Status: Acute Assessment and Plan: He reports having upper respiratory symptoms that started a week ago, he thought he had a cold. He reports a dry non-productive cough but otherwise no respiratory symptoms. COVID + on admission conservative treatment droplet precautions (6) FEMI (obstructive sleep apnea): Code(s): G47.33 - Obstructive sleep apnea (adult) (pediatric) Status: Acute Assessment and Plan: Concerns for obstructive sleep apnea so an
[2024-06-11] MEDS: INSULIN HUMAN ISOPHAN/REGULAR 70/30 (*BKC) 100 UNITS/ML 12 UNITS SUB-Q (09:27)
[2024-06-11] MEDS: LOSARTAN POTASSIUM 50 MG TABLET PO (09:28)
[2024-06-11] MEDS: PANTOPRAZOLE 40 MG TABLET PO (09:29)
[2024-06-11] MEDS: ENOXAPARIN 40 MG/0.4 ML SYRINGE SUB-Q (09:29)
--- NOTE | 2024-06-11 11:26 | PC.NURSE ---
Documentation under the name of Ana Maria Torre on 06/10/24 from [id number] was done by Yen Rod. Signing out and logging in was not done correctly at shift change.
[2024-06-11 11:31] LABS: Glucose Point of Care 210 mg/dl (65-105)
[2024-06-11] MEDS: INSULIN ASPART (*BKC) 100 UNITS/ML SUB-Q (12:14)
--- NOTE | 2024-06-11 13:15 | PM.PNGS ---
Progress Note: A&P Assessment and Plan (1) Necrotizing fasciitis of lower leg: Code(s): M72.6 - Necrotizing fasciitis Status: Acute Assessment and Plan: Right foot wound appears to be healing well with no purulent drainage on exam today. Will continue local wound care with silver gel dressing changes and iodoform packing. Cover with 4x4, ABD, and Kerlix/oni wrap. Keep foot elevated. Can ambulate with heel touch weight-bearing, walking shoe at bedside. Continue IV antibiotics. If he continues to improve, then we may be able to stop antibiotics and discharge home in the next 1-2 days. He is planning to have his niece help with dressing changes daily at home. (2) Diabetic foot infection: Code(s): E11.628 - Type 2 diabetes mellitus with other skin complications; L08.9 - Local infection of the skin and subcutaneous tissue, unspecified Status: Acute Assessment and Plan: Wound cultures growing Group B strep. Continue IV Cefazolin. WBC count normalized. (3) Diabetic foot ulcer associated with type 2 diabetes mellitus: Qualifiers: Diabetic foot ulcer location: toe Laterality: right Non-pressure ulcer stage: unspecified non-pressure ulcer stage Qualified Code(s): E11.621 - Type 2 diabetes mellitus with foot ulcer; L97.519 - Non-pressure chronic ulcer of other part of right foot with unspecified severity Code(s): E11.621 - Type 2 diabetes mellitus with foot ulcer; L97.509 - Non-pressure chronic ulcer of other part of unspecified foot with unspecified severity Status: Acute Plan I have discussed the patient's case and plan of care with Dr. Jauregui. Subjective Subjective Date/Time Seen: 06/11/24 13:15 Post Op day: 3 (Open right transmetatarsal amputation 2nd toe with excisional debridement skin, subcutaneous, muscle, bone of a 14 x 4 x 2 cm area of the right foot in addition to the open amputation. Total size debridement 112 cm3. Excision of 2nd metatarsal ulcer right foot.) Patient reports: no new complaints, tolerating a regular diet and afebrile Exam Const: General: comfortable and no acute distress Skin: Other: Right foot dressing changed by Dr. Jauregui. The wound looks good today without any changes, no purulent drainage noted on the plantar aspect of the wound. Objective Data Vital Signs Vital Signs: Vital Signs - 24 hr 06/10/24 16:00 06/10/24 22:39 06/11/24 05:48 Temperature 97.6 F 98.3 F 98.2 F Pulse Rate 81 82 95 Respiratory Rate 18 18 18 Blood Pressure 166/92 H 147/85 H 165/73 H Pulse Oximetry 100 99 99 Intake/Output Intake/Output: Intake & Output 06/08/24 06/09/24 06/10/24 06/11/24 23:59 23:59 23:59 23:59 Intake Total 4980 2410 2043 1130 Output Total 950 Balance 4980 2410 1093 1130 Meds/Results Medications: Active Medications Generic Name Dose Route Start Last Admin Trade Name Freq PRN Reason Stop Dose Admin Acetaminophen 500 mg 06/08/24 16:56 06/10/24 00:40 Acetaminophen 500 Mg Tablet PO 500 mg Q6H PRN Administration Pain Rated 1-3 Dextrose 12.5 gm 06/06/24 18:06 Dextrose 50% 25 Gm/50 Ml Syringe IV PUSH PRN PRN Hypoglycemia Protocol Diphenhydramine HCl 25 mg 06/08/24 16:56 Diphenhydramine Hcl Inj 50 Mg/Ml Vial IV PUSH Q6H PRN Itching Enoxaparin Sodium 40 mg 06/07/24 09:00 06/11/24 09:29 Enoxaparin 40 Mg/0.4 Ml Syringe SUB-Q 40 mg DAILY ARLEEN Administration Fentanyl Citrate 12.5 mcg 06/08/24 16:56 Fentanyl Citrate Inj (*Crx) 100 Mcg/2 Ml Vial IV PUSH Q2H PRN Breakthrough Pain Rated 4-6 or NPO Fentanyl Citrate 25 mcg 06/08/24 16:56 Fentanyl Citrate Inj (*Crx) 100 Mcg/2 Ml Vial IV PUSH Q2H PRN Breakthrough Pain Rated 7-10 or NPO Glucagon 1 mg 06/06/24 18:06 Glucagon For Inj 1 Mg Vial IM PRN PRN Hypoglycemia Protocol Glucose 15 gm 06/06/24 18:06 Glucose Oral Gel 15 Gm Of Glucse In 37.5 Gm Tube PO PRN
[2024-06-11 16:00] VITALS: BP 157/86; PULSE 83; RESP 20; TEMP 36.4; O2SAT 99
[2024-06-11 16:35] LABS: Glucose Point of Care 171 mg/dl (65-105)
[2024-06-11 21:12] LABS: Glucose Point of Care 202 mg/dl (65-105)
[2024-06-11 21:20] VITALS: PULSE 81; O2SAT 99
[2024-06-11 21:26] VITALS: BP 152/80; PULSE 82; RESP 18; TEMP 36.7; O2SAT 99
[2024-06-11] MEDS: SENNA/DOCUSATE SODIUM TABLET 2 TAB PO (21:30)
[2024-06-11] MEDS: MELATONIN 5 MG TABLET PO (21:31)
[2024-06-12 06:00] VITALS: BP 168/91; PULSE 80; RESP 16; TEMP 36.5; O2SAT 98
[2024-06-12] MEDS: ACETAMINOPHEN 500 MG TABLET PO (06:27)
[2024-06-12] MEDS: ceFAZolin 2 GM/D5W 50 ML 2 GM/50 ML BAG IVPB ×2 (06:27→13:37)
[2024-06-12 06:35] LABS: Basophils Percent Auto 0.6 % (0.2-1.2); Eosinophils Absolute Auto 0.3 K/mm3 (0-0.3); Eosinophils Percent Auto 3.9 % (0-4.4); Hematocrit 35.7 % (42.0-52.0); Hemoglobin 11.3 g/dL (14.0-18.0); Immature Granulocyte Absolute 0.19 K/mm3 (0.00-0.031); Immature Granulocyte Percent A 2.9 % (0-0.5); Lymphocytes Absolute Auto 1.52 K/mm3 (0.9-3.2); Lymphocytes Percent Auto 22.9 % (18.3-44.2); Mean Corpuscular HGB Conc 31.7 g/dl (32-36); Mean Corpuscular Hemoglobin 28.9 pg (26-34); Mean Corpuscular Volume 91.3 fl (80-100); Mean Platelet Volume 9.4 fl (7.4-10.4); Monocytes Absolute Auto 0.6 K/mm3 (0.1-0.6); Neutrophils Percent Auto 60.7 % (45.5-73.1); Platelet Count Result 358 k/mm3 (150-375); Red Blood Count 3.91 M/mm3 (4.6-6.20); Red Cell Distribution Width 13.7 % (11.5-14.5); White Blood Count 6.6 K/mm3 (4.5-10.0)
[2024-06-12 06:46] LABS: Alanine Aminotransferase 17 U/L (6-50); Albumin Level 2.9 g/dL (3.5-5.1); Alkaline Phosphatase 90 U/L (38-126); Anion Gap 10 mmol/L (4-12); Aspartate Amino Transferase 32 U/L (17-59); Bilirubin,Total 0.8 mg/dL (0.2-1.3); Blood Urea Nitrogen 10 mg/dL (9-20); Calcium 8.1 mg/dL (8.4-10.2); Carbon Dioxide 26 mmol/L (22-30); Chloride 100 mmol/L (98-107); Estimated CRCL calculation 117 ml/min; Estimated Glomerular Filt Rate > 60; Glucose 213 mg/dL (65-110); Magnesium 1.8 mg/dL (1.6-2.3); Potassium 3.7 mmol/L (3.4-5.0); Sodium 136 mmol/L (137-145)
[2024-06-12 07:33] LABS: Glucose Point of Care 212 mg/dl (65-105)
[2024-06-12] MEDS: INSULIN ASPART (*BKC) 100 UNITS/ML SUB-Q ×3 (09:07→17:47)
[2024-06-12] MEDS: ENOXAPARIN 40 MG/0.4 ML SYRINGE SUB-Q (09:07)
[2024-06-12] MEDS: LOSARTAN POTASSIUM 50 MG TABLET PO (09:08)
[2024-06-12] MEDS: PANTOPRAZOLE 40 MG TABLET PO (09:08)
[2024-06-12] MEDS: polyethylene glycoL 3350 17 GM POWD.PACK PO (09:08)
[2024-06-12] MEDS: INSULIN HUMAN ISOPHAN/REGULAR 70/30 (*BKC) 100 UNITS/ML 12 UNITS SUB-Q ×2 (09:08→17:47)
--- NOTE | 2024-06-12 09:41 | P.PNIM_ITS ---
Progress Note: A&P Assessment and Plan (1) Diabetic foot ulcer associated with type 2 diabetes mellitus: Qualifiers: Diabetic foot ulcer location: toe Laterality: right Non-pressure ulcer stage: unspecified non-pressure ulcer stage Qualified Code(s): E11.621 - Type 2 diabetes mellitus with foot ulcer; L97.519 - Non-pressure chronic ulcer of other part of right foot with unspecified severity Code(s): E11.621 - Type 2 diabetes mellitus with foot ulcer; L97.509 - Non-pressure chronic ulcer of other part of unspecified foot with unspecified severity Status: Acute Assessment and Plan: * Leukocytosis 13.4, afebrile, lactic 1.6, procal 8.9 * Started on Cefepime, Flagyl, Vancomycin * CT of the right foot mentions no specific evidence of osteomyelitis, dislocation of second metatarsophalangeal joint, polyarticular arthritis. It also mentions soft tissue gas to the plantar head of the second metatarsal. This was palpable on exam. * Blood cultures with no growth to date * CRP > 45.0 * DVT prophylaxis with Lovenox * POD 1 from right 2nd toe amputation and extensive debridement of necrotizing soft tissue infection. * Wound cultures take in OR * Cefepime and Flagyl d/c'd per surgery. Culture started growing group B strep. Zosyn was added and switched to Cefazolin. Vancomycin stopped. * Wound care consulted by surgery---Will need daily dressing changes which will be completed by his son and niece. Patient cannot get a wound vac as he does not have insurance or established PCP. * Surgery is thinking he will be ready for discharge by the end of the week. He will probably not even need PO antibiotics at discharge. * WBC down trending 14.5-->13.4-->13.1-->10.2-->6.5-->6.6 * imroving (2) Uncontrolled diabetes mellitus: Qualifiers: Diabetes mellitus type: type 2 Glycemic state: with hyperglycemia Qualified Code(s): E11.65 - Type 2 diabetes mellitus with hyperglycemia Status: Acute Assessment and Plan: Patient has a history of diabetes but has not been able to get his medications due to lack of insurance. * Started on 70/[address] Stokes recommendations as this is more affordable without insurance * SSI high dose sliding scale * Fasting blood glucose 165. POC ranging from 143-219 * AC/HS accu checks, hypoglycemia protocol * Hemoglobin A1C 13.9% * Consult to the clinical leader, mulu appreciated (3) Nausea & vomiting: Code(s): R11.2 - Nausea with vomiting, unspecified Status: Acute Assessment and Plan: Persistent nausea and vomiting for the last week. Likely multifactorial given hyperglycemia vs possible gastroparesis vs COVID vs viral gastroenteritis * Zofran PRN, added Compazine * IVF * Clear liquids recommended * Lipase 21 * T-bili mildly elevated 2.8 * No abdominal pain, abdomen is soft and non-tender, passing flatus, and having bowel movements. * Nearly resolved today now that blood sugar is more controlled RESOLVED (4) HTN (hypertension): Code(s): I10 - Essential (primary) hypertension Status: Acute Assessment and Plan: Blood pressures on admission 129/87 mmhg. Now 140-150's systolic. Patient is not on anti-hypertensives at home. * Elevation could be from IVF. He is on a regular diet. Will decrease fluids and possibly d/c all together if his nausea, vomiting has resolved. * Losartan 50 mg PO daily started 06/10 * 140-160/70-80's, HR 70's -monitor garcia now, will see what is the cheapest option for pt for BP meds -discussed options for BP meds upon discharge- [id number] mg/hctz 12.5 is 10$ for 90 da
--- NOTE | 2024-06-12 09:41 | PM.IMPN ---
Progress Note: A&P Assessment and Plan (1) Diabetic foot ulcer associated with type 2 diabetes mellitus: Qualifiers: Diabetic foot ulcer location: toe Laterality: right Non-pressure ulcer stage: unspecified non-pressure ulcer stage Qualified Code(s): E11.621 - Type 2 diabetes mellitus with foot ulcer; L97.519 - Non-pressure chronic ulcer of other part of right foot with unspecified severity Code(s): E11.621 - Type 2 diabetes mellitus with foot ulcer; L97.509 - Non-pressure chronic ulcer of other part of unspecified foot with unspecified severity Status: Acute Assessment and Plan: Leukocytosis 13.4, afebrile, lactic 1.6, procal 8.9 Started on Cefepime, Flagyl, Vancomycin CT of the right foot mentions no specific evidence of osteomyelitis, dislocation of second metatarsophalangeal joint, polyarticular arthritis. It also mentions soft tissue gas to the plantar head of the second metatarsal. This was palpable on exam. Blood cultures with no growth to date CRP > 45.0 DVT prophylaxis with Lovenox POD 1 from right 2nd toe amputation and extensive debridement of necrotizing soft tissue infection. Wound cultures take in OR Cefepime and Flagyl d/c'd per surgery. Culture started growing group B strep. Zosyn was added and switched to Cefazolin. Vancomycin stopped. Wound care consulted by surgery---Will need daily dressing changes which will be completed by his son and niece. Patient cannot get a wound vac as he does not have insurance or established PCP. Surgery is thinking he will be ready for discharge by the end of the week. He will probably not even need PO antibiotics at discharge. WBC down trending 14.5-->13.4-->13.1-->10.2-->6.5-->6.6 imroving (2) Uncontrolled diabetes mellitus: Qualifiers: Diabetes mellitus type: type 2 Glycemic state: with hyperglycemia Qualified Code(s): E11.65 - Type 2 diabetes mellitus with hyperglycemia Status: Acute Assessment and Plan: Patient has a history of diabetes but has not been able to get his medications due to lack of insurance. Started on 70/[address] Stokes recommendations as this is more affordable without insurance SSI high dose sliding scale Fasting blood glucose 165. POC ranging from 143-219 AC/HS accu checks, hypoglycemia protocol Hemoglobin A1C 13.9% Consult to the critical care educator, mulu appreciated (3) Nausea & vomiting: Code(s): R11.2 - Nausea with vomiting, unspecified Status: Acute Assessment and Plan: Persistent nausea and vomiting for the last week. Likely multifactorial given hyperglycemia vs possible gastroparesis vs COVID vs viral gastroenteritis Zofran PRN, added Compazine IVF Clear liquids recommended Lipase 21 T-bili mildly elevated 2.8 No abdominal pain, abdomen is soft and non-tender, passing flatus, and having bowel movements. Nearly resolved today now that blood sugar is more controlled RESOLVED (4) HTN (hypertension): Code(s): I10 - Essential (primary) hypertension Status: Acute Assessment and Plan: Blood pressures on admission 129/87 mmhg. Now 140-150's systolic. Patient is not on anti-hypertensives at home. Elevation could be from IVF. He is on a regular diet. Will decrease fluids and possibly d/c all together if his nausea, vomiting has resolved. Losartan 50 mg PO daily started 06/10 140-160/70-80's, HR 70's -monitor garcia now, will see what is the cheapest option for pt for BP meds -discussed options for BP meds upon discharge- [id number] mg/hctz 12.5 is 10$ for 90 days- will write a script for that-so pt can afford the medication (5) COVID: Code(s): U07.1 - COVID-19 Status: Acute Assessment and Plan: He reports having upper respiratory symptoms that started a week ago, he thought he had a cold. He reports a dry non-productive cough but otherwise no respiratory symptoms. COVID + on admission con
[2024-06-12 11:20] LABS: Glucose Point of Care 217 mg/dl (65-105)
[2024-06-12 13:36] VITALS: BP 148/85; PULSE 79; RESP 17; TEMP 36.4; O2SAT 100
--- NOTE | 2024-06-12 13:39 | PM.PNGS ---
Progress Note: A&P Assessment and Plan (1) Necrotizing fasciitis of lower leg: Code(s): M72.6 - Necrotizing fasciitis Status: Acute Assessment and Plan: Right foot wound continues to heal well. Will continue local wound care with silver gel dressing changes and iodoform packing. Cover with 4x4, ABD, and Kerlix/oni wrap. Keep foot elevated. Can ambulate with heel touch weight-bearing, walking shoe at bedside. Continue IV antibiotics. Possibly home tomorrow if he continues to improve. (2) Diabetic foot infection: Code(s): E11.628 - Type 2 diabetes mellitus with other skin complications; L08.9 - Local infection of the skin and subcutaneous tissue, unspecified Status: Acute Assessment and Plan: Continue IV antibiotics. May consider discharging patient tomorrow and stopping antibiotics on discharge. (3) Diabetic foot ulcer associated with type 2 diabetes mellitus: Qualifiers: Diabetic foot ulcer location: toe Laterality: right Non-pressure ulcer stage: unspecified non-pressure ulcer stage Qualified Code(s): E11.621 - Type 2 diabetes mellitus with foot ulcer; L97.519 - Non-pressure chronic ulcer of other part of right foot with unspecified severity Code(s): E11.621 - Type 2 diabetes mellitus with foot ulcer; L97.509 - Non-pressure chronic ulcer of other part of unspecified foot with unspecified severity Status: Acute Plan I have discussed the patient's case and plan of care with Dr. Jauregui. Subjective Subjective Date/Time Seen: 06/12/24 13:39 Post Op day: 4 (Open right transmetatarsal amputation 2nd toe with excisional debridement) Patient reports: no new complaints and afebrile Interval history: Patient seen today with no specific complaints. He has a walking boot at the bedside that he reports he is using with ambulation. Review of Systems Review of Systems: All systems reviewed & are unremarkable except as noted in HPI and below Exam Const: General: comfortable and no acute distress Orientation/consciousness: patient oriented x3 Skin: Other: Right foot dressing removed. Foot wound looks good today with no purulent drainage or new areas of necrotic tissue. There is still a small area of loose necrotic tissue at the proximal aspect of the wound on the dorsal foot that is unchanged. Silver gel and new dressing applied. Objective Data Vital Signs Vital Signs: Vital Signs - 24 hr 06/11/24 16:00 06/11/24 21:26 06/12/24 06:00 Temperature 97.6 F 98.1 F 97.7 F Pulse Rate 83 82 80 Respiratory Rate 20 18 16 Blood Pressure 157/86 H 152/80 H 168/91 H Pulse Oximetry 99 99 98 Oxygen Delivery 06/11/24 21:20 06/12/24 09:07 06/12/24 13:36 Temperature 97.6 F Pulse Rate 81 79 Respiratory Rate 17 Blood Pressure 148/85 H Pulse Oximetry 99 100 Oxygen Delivery CPAP Room Air Intake/Output Intake/Output: Intake & Output 06/09/24 06/10/24 06/11/24 06/12/24 23:59 23:59 23:59 23:59 Intake Total 2410 2043 2204 750 Output Total 950 Balance 2410 1093 2204 750 Meds/Results Medications: Active Medications Generic Name Dose Route Start Last Admin Trade Name Freq PRN Reason Stop Dose Admin Acetaminophen 500 mg 06/08/24 16:56 06/12/24 06:27 Acetaminophen 500 Mg Tablet PO 500 mg Q6H PRN Administration Pain Rated 1-3 Dextrose 12.5 gm 06/06/24 18:06 Dextrose 50% 25 Gm/50 Ml Syringe IV PUSH PRN PRN Hypoglycemia Protocol Diphenhydramine HCl 25 mg 06/08/24 16:56 Diphenhydramine Hcl Inj 50 Mg/Ml Vial IV PUSH Q6H PRN Itching Enoxaparin Sodium 40 mg 06/07/24 09:00 06/12/24 09:07 Enoxaparin 40 Mg/0.4 Ml Syringe SUB-Q 40 mg DAILY ARLEEN Administration Fentanyl Citrate 12.5 mcg 06/08/24 16:56 Fentanyl Citrate Inj (*Crx) 100 Mcg/2 Ml Vial IV PUSH Q2H PRN Breakthrough Pain Rated 4-6 or NPO Fentanyl Citrate 25 mcg 06/08/24 16:56 Fentanyl Citrate Inj (*Crx) 100 Mc
[2024-06-12 16:11] LABS: Glucose Point of Care 208 mg/dl (65-105)
[2024-06-12] MEDS: CEPHALEXIN 500 MG CAPSULE PO ×2 (17:47→23:33)
[2024-06-12] MEDS: MELATONIN 5 MG TABLET PO (20:36)
[2024-06-12 21:05] VITALS: PULSE 87; O2SAT 98
[2024-06-12 21:10] VITALS: BP 164/90; PULSE 75; RESP 18; TEMP 36.5; O2SAT 100
[2024-06-12 21:10] LABS: Glucose Point of Care 198 mg/dl (65-105)
[2024-06-13] MEDS: CEPHALEXIN 500 MG CAPSULE PO ×2 (05:44→12:37)
[2024-06-13] MEDS: oxyCODONE/ACETAMINOPHEN (*CRX) 5-325 MG TABLET 1 TABLET PO (05:45)
[2024-06-13 05:53] VITALS: BP 169/91; PULSE 83; RESP 18; TEMP 36.6; O2SAT 99
[2024-06-13 05:57] LABS: Glucose Point of Care 185 mg/dl (65-105)
[2024-06-13 06:26] LABS: Basophils Percent Auto 0.5 % (0.2-1.2); Eosinophils Absolute Auto 0.2 K/mm3 (0-0.3); Eosinophils Percent Auto 2.7 % (0-4.4); Hematocrit 37.6 % (42.0-52.0); Hemoglobin 11.9 g/dL (14.0-18.0); Immature Granulocyte Absolute 0.27 K/mm3 (0.00-0.031); Immature Granulocyte Percent A 3.6 % (0-0.5); Lymphocytes Absolute Auto 1.39 K/mm3 (0.9-3.2); Lymphocytes Percent Auto 18.4 % (18.3-44.2); Mean Corpuscular HGB Conc 31.6 g/dl (32-36); Mean Corpuscular Hemoglobin 28.7 pg (26-34); Mean Corpuscular Volume 90.8 fl (80-100); Mean Platelet Volume 9.1 fl (7.4-10.4); Monocytes Absolute Auto 0.6 K/mm3 (0.1-0.6); Monocytes Percent Auto 7.3 % (2.6-8.5); Neutrophils Absolute Auto 5.1 K/mm3 (1.3-6.7); Neutrophils Percent Auto 67.5 % (45.5-73.1); Platelet Count Result 380 k/mm3 (150-375); Red Blood Count 4.14 M/mm3 (4.6-6.20); Red Cell Distribution Width 13.4 % (11.5-14.5); White Blood Count 7.5 K/mm3 (4.5-10.0)
[2024-06-13 06:38] LABS: Alanine Aminotransferase 19 U/L (6-50); Albumin Level 3.2 g/dL (3.5-5.1); Alkaline Phosphatase 93 U/L (38-126); Anion Gap 8 mmol/L (4-12); Aspartate Amino Transferase 31 U/L (17-59); Bilirubin,Total 0.8 mg/dL (0.2-1.3); Blood Urea Nitrogen 13 mg/dL (9-20); Calcium 8.5 mg/dL (8.4-10.2); Carbon Dioxide 29 mmol/L (22-30); Chloride 99 mmol/L (98-107); Estimated CRCL calculation 106 ml/min; Estimated Glomerular Filt Rate > 60; Glucose 204 mg/dL (65-110); Magnesium 1.8 mg/dL (1.6-2.3); Potassium 3.9 mmol/L (3.4-5.0); Sodium 136 mmol/L (137-145)
[2024-06-13 07:33] LABS: Glucose Point of Care 210 mg/dl (65-105)
[2024-06-13] MEDS: PANTOPRAZOLE 40 MG TABLET PO (08:34)
[2024-06-13] MEDS: hydroCHLOROthiazide 12.5 MG CAPSULE PO (08:34)
[2024-06-13] MEDS: LOSARTAN POTASSIUM 50 MG TABLET PO (08:34)
[2024-06-13] MEDS: ENOXAPARIN 40 MG/0.4 ML SYRINGE SUB-Q (08:34)
[2024-06-13] MEDS: INSULIN HUMAN ISOPHAN/REGULAR 70/30 (*BKC) 100 UNITS/ML 12 UNITS SUB-Q (08:35)
[2024-06-13] MEDS: INSULIN ASPART (*BKC) 100 UNITS/ML SUB-Q ×2 (08:35→12:38)
--- NOTE | 2024-06-13 09:00 | P.PNIM_ITS ---
Progress Note: A&P Assessment and Plan (1) Diabetic foot ulcer associated with type 2 diabetes mellitus: Qualifiers: Diabetic foot ulcer location: toe Laterality: right Non-pressure ulcer stage: unspecified non-pressure ulcer stage Qualified Code(s): E11.621 - Type 2 diabetes mellitus with foot ulcer; L97.519 - Non-pressure chronic ulcer of other part of right foot with unspecified severity Code(s): E11.621 - Type 2 diabetes mellitus with foot ulcer; L97.509 - Non-pressure chronic ulcer of other part of unspecified foot with unspecified severity Status: Acute Assessment and Plan: * Leukocytosis 13.4, afebrile, lactic 1.6, procal 8.9 * Started on Cefepime, Flagyl, Vancomycin * CT of the right foot mentions no specific evidence of osteomyelitis, dislocation of second metatarsophalangeal joint, polyarticular arthritis. It also mentions soft tissue gas to the plantar head of the second metatarsal. This was palpable on exam. * Blood cultures with no growth to date * CRP > 45.0 * DVT prophylaxis with Lovenox * POD 1 from right 2nd toe amputation and extensive debridement of necrotizing soft tissue infection. * Wound cultures take in OR * Cefepime and Flagyl d/c'd per surgery. Culture started growing group B strep. Zosyn was added and switched to Cefazolin. Vancomycin stopped. * Wound care consulted by surgery---Will need daily dressing changes which will be completed by his son and niece. Patient cannot get a wound vac as he does not have insurance or established PCP. * Surgery is thinking he will be ready for discharge by the end of the week. He will probably not even need PO antibiotics at discharge. * WBC down trending 14.5-->13.4-->13.1-->10.2-->6.5-->6.6 * improving * - continue to monitor (2) Uncontrolled diabetes mellitus: Qualifiers: Diabetes mellitus type: type 2 Glycemic state: with hyperglycemia Qualified Code(s): E11.65 - Type 2 diabetes mellitus with hyperglycemia Status: Acute Assessment and Plan: Patient has a history of diabetes but has not been able to get his medications due to lack of insurance. * Started on 70/[address] Stokes recommendations as this is more affordable without insurance * SSI high dose sliding scale * Fasting blood glucose 165. POC ranging from 143-219 * AC/HS accu checks, hypoglycemia protocol * Hemoglobin A1C 13.9% * Consult to the educator senior clinical, recs appreciated * BS elevated- will increased 70/30 to 15 units BID and monitor * - goal under 200 consistently (3) HTN (hypertension): Code(s): I10 - Essential (primary) hypertension Status: Acute Assessment and Plan: Blood pressures on admission 129/87 mmhg. Now 140-150's systolic. Patient is not on anti-hypertensives at home. * Elevation could be from IVF. He is on a regular diet. Will decrease fluids and possibly d/c all together if his nausea, vomiting has resolved. * Losartan 50 mg PO daily started 06/10 * 140-160/70-80's, HR 70's -monitor garcia now, will see what is the cheapest option for pt for BP meds -discussed options for BP meds upon discharge- [id number] mg/hctz 12.5 is 10$ for 90 days- will write a script for that-so pt can afford the medication (4) COVID: Code(s): U07.1 - COVID-19 Status: Acute Assessment and Plan: He reports having upper respiratory symptoms that started a week ago, he thought he had a cold. He reports a dry non-productive cough but otherwise no respiratory symptoms. * COVID + on admission * conservative treatment * droplet precautions (5) FEMI (obstructive sleep apnea): Code(s):
--- NOTE | 2024-06-13 09:00 | PM.IMPN ---
Progress Note: A&P Assessment and Plan (1) Diabetic foot ulcer associated with type 2 diabetes mellitus: Qualifiers: Diabetic foot ulcer location: toe Laterality: right Non-pressure ulcer stage: unspecified non-pressure ulcer stage Qualified Code(s): E11.621 - Type 2 diabetes mellitus with foot ulcer; L97.519 - Non-pressure chronic ulcer of other part of right foot with unspecified severity Code(s): E11.621 - Type 2 diabetes mellitus with foot ulcer; L97.509 - Non-pressure chronic ulcer of other part of unspecified foot with unspecified severity Status: Acute Assessment and Plan: Leukocytosis 13.4, afebrile, lactic 1.6, procal 8.9 Started on Cefepime, Flagyl, Vancomycin CT of the right foot mentions no specific evidence of osteomyelitis, dislocation of second metatarsophalangeal joint, polyarticular arthritis. It also mentions soft tissue gas to the plantar head of the second metatarsal. This was palpable on exam. Blood cultures with no growth to date CRP > 45.0 DVT prophylaxis with Lovenox POD 1 from right 2nd toe amputation and extensive debridement of necrotizing soft tissue infection. Wound cultures take in OR Cefepime and Flagyl d/c'd per surgery. Culture started growing group B strep. Zosyn was added and switched to Cefazolin. Vancomycin stopped. Wound care consulted by surgery---Will need daily dressing changes which will be completed by his son and niece. Patient cannot get a wound vac as he does not have insurance or established PCP. Surgery is thinking he will be ready for discharge by the end of the week. He will probably not even need PO antibiotics at discharge. WBC down trending 14.5-->13.4-->13.1-->10.2-->6.5-->6.6 improving - continue to monitor (2) Uncontrolled diabetes mellitus: Qualifiers: Diabetes mellitus type: type 2 Glycemic state: with hyperglycemia Qualified Code(s): E11.65 - Type 2 diabetes mellitus with hyperglycemia Status: Acute Assessment and Plan: Patient has a history of diabetes but has not been able to get his medications due to lack of insurance. Started on 70/[address] Stokes recommendations as this is more affordable without insurance SSI high dose sliding scale Fasting blood glucose 165. POC ranging from 143-219 AC/HS accu checks, hypoglycemia protocol Hemoglobin A1C 13.9% Consult to the educator senior clinical, recs appreciated BS elevated- will increased 70/30 to 15 units BID and monitor - goal under 200 consistently (3) HTN (hypertension): Code(s): I10 - Essential (primary) hypertension Status: Acute Assessment and Plan: Blood pressures on admission 129/87 mmhg. Now 140-150's systolic. Patient is not on anti-hypertensives at home. Elevation could be from IVF. He is on a regular diet. Will decrease fluids and possibly d/c all together if his nausea, vomiting has resolved. Losartan 50 mg PO daily started 06/10 140-160/70-80's, HR 70's -monitor garcia now, will see what is the cheapest option for pt for BP meds -discussed options for BP meds upon discharge- [id number] mg/hctz 12.5 is 10$ for 90 days- will write a script for that-so pt can afford the medication (4) COVID: Code(s): U07.1 - COVID-19 Status: Acute Assessment and Plan: He reports having upper respiratory symptoms that started a week ago, he thought he had a cold. He reports a dry non-productive cough but otherwise no respiratory symptoms. COVID + on admission conservative treatment droplet precautions (5) FEMI (obstructive sleep apnea): Code(s): G47.33 - Obstructive sleep apnea (adult) (pediatric) Status: Acute Assessment and Plan: Concerns for obstructive sleep apnea so an apnea link was preformed Apnea link reports AHI of 70.1, JOSEILNE 74.8 Average saturation was 95%, lowest saturation 76% Total desaturations of 517. He had 10 minutes of saturation less than 88%, 3 zaria
--- NOTE | 2024-06-13 09:18 | PCNWS ---
Weekly nutritional screen. Patient is tolerating current diabetic diet with adequate intake 100% all meals. No weight loss reported. No nutritional needs at this time.
[2024-06-13 11:19] LABS: Glucose Point of Care 242 mg/dl (65-105)
--- NOTE | 2024-06-13 13:52 | P.DS_ITS ---
DS: Admitting Diagnosis Discharge Date 06/13 Admitting Diagnosis rt leg wound DS: Discharge Diagnosis Discharge Diagnosis (1) Diabetic foot ulcer associated with type 2 diabetes mellitus: Qualifiers: Diabetic foot ulcer location: toe Laterality: right Non-pressure ulcer stage: unspecified non-pressure ulcer stage Qualified Code(s): E11.621 - Type 2 diabetes mellitus with foot ulcer; L97.519 - Non-pressure chronic ulcer of other part of right foot with unspecified severity Code(s): E11.621 - Type 2 diabetes mellitus with foot ulcer; L97.509 - Non-pressure chronic ulcer of other part of unspecified foot with unspecified severity Status: Acute Assessment and Plan: * Leukocytosis 13.4, afebrile, lactic 1.6, procal 8.9 * Started on Cefepime, Flagyl, Vancomycin * CT of the right foot mentions no specific evidence of osteomyelitis, dislocation of second metatarsophalangeal joint, polyarticular arthritis. It also mentions soft tissue gas to the plantar head of the second metatarsal. This was palpable on exam. * Blood cultures with no growth to date * CRP > 45.0 * DVT prophylaxis with Lovenox * POD 1 from right 2nd toe amputation and extensive debridement of necrotizing soft tissue infection. * Wound cultures take in OR * Cefepime and Flagyl d/c'd per surgery. Culture started growing group B strep. Zosyn was added and switched to Cefazolin. Vancomycin stopped. * Wound care consulted by surgery---Will need daily dressing changes which will be completed by his son and niece. Patient cannot get a wound vac as he does not have insurance or established PCP. * Surgery is thinking he will be ready for discharge by the end of the week. He will probably not even need PO antibiotics at discharge. * WBC down trending 14.5-->13.4-->13.1-->10.2-->6.5-->6.6 * improving * - continue to monitor (2) Uncontrolled diabetes mellitus: Qualifiers: Diabetes mellitus type: type 2 Glycemic state: with hyperglycemia Qualified Code(s): E11.65 - Type 2 diabetes mellitus with hyperglycemia Status: Acute Assessment and Plan: Patient has a history of diabetes but has not been able to get his medications due to lack of insurance. * Started on 70/[address] Stokes recommendations as this is more affordable without insurance * SSI high dose sliding scale * Fasting blood glucose 165. POC ranging from 143-219 * AC/HS accu checks, hypoglycemia protocol * Hemoglobin A1C 13.9% * Consult to the head concierge, recmena appreciated * BS elevated- will increased 70/30 to 15 units BID and monitor * - goal under 200 consistently (3) HTN (hypertension): Code(s): I10 - Essential (primary) hypertension Status: Acute Assessment and Plan: Blood pressures on admission 129/87 mmhg. Now 140-150's systolic. Patient is not on anti-hypertensives at home. * Elevation could be from IVF. He is on a regular diet. Will decrease fluids and possibly d/c all together if his nausea, vomiting has resolved. * Losartan 50 mg PO daily started 06/10 * 140-160/70-80's, HR 70's -monitor garcia now, will see what is the cheapest option for pt for BP meds -discussed options for BP meds upon discharge- [id number] mg/hctz 12.5 is 10$ for 90 days- will write a script for that-so pt can afford the medication (4) COVID: Code(s): U07.1 - COVID-19 Status: Acute Assessment and Plan: He reports having upper respiratory symptoms that started a week ago, he thought he had a cold. He reports a dry non-productive cough but otherwise no respiratory symptoms. * COVID + on admission *
--- NOTE | 2024-06-13 13:52 | PM.DS ---
DS: Admitting Diagnosis Discharge Date 06/13 Admitting Diagnosis rt leg wound DS: Discharge Diagnosis Discharge Diagnosis (1) Diabetic foot ulcer associated with type 2 diabetes mellitus: Qualifiers: Diabetic foot ulcer location: toe Laterality: right Non-pressure ulcer stage: unspecified non-pressure ulcer stage Qualified Code(s): E11.621 - Type 2 diabetes mellitus with foot ulcer; L97.519 - Non-pressure chronic ulcer of other part of right foot with unspecified severity Code(s): E11.621 - Type 2 diabetes mellitus with foot ulcer; L97.509 - Non-pressure chronic ulcer of other part of unspecified foot with unspecified severity Status: Acute Assessment and Plan: Leukocytosis 13.4, afebrile, lactic 1.6, procal 8.9 Started on Cefepime, Flagyl, Vancomycin CT of the right foot mentions no specific evidence of osteomyelitis, dislocation of second metatarsophalangeal joint, polyarticular arthritis. It also mentions soft tissue gas to the plantar head of the second metatarsal. This was palpable on exam. Blood cultures with no growth to date CRP > 45.0 DVT prophylaxis with Lovenox POD 1 from right 2nd toe amputation and extensive debridement of necrotizing soft tissue infection. Wound cultures take in OR Cefepime and Flagyl d/c'd per surgery. Culture started growing group B strep. Zosyn was added and switched to Cefazolin. Vancomycin stopped. Wound care consulted by surgery---Will need daily dressing changes which will be completed by his son and niece. Patient cannot get a wound vac as he does not have insurance or established PCP. Surgery is thinking he will be ready for discharge by the end of the week. He will probably not even need PO antibiotics at discharge. WBC down trending 14.5-->13.4-->13.1-->10.2-->6.5-->6.6 improving - continue to monitor (2) Uncontrolled diabetes mellitus: Qualifiers: Diabetes mellitus type: type 2 Glycemic state: with hyperglycemia Qualified Code(s): E11.65 - Type 2 diabetes mellitus with hyperglycemia Status: Acute Assessment and Plan: Patient has a history of diabetes but has not been able to get his medications due to lack of insurance. Started on 70/[address] Stokes recommendations as this is more affordable without insurance SSI high dose sliding scale Fasting blood glucose 165. POC ranging from 143-219 AC/HS accu checks, hypoglycemia protocol Hemoglobin A1C 13.9% Consult to the primary special educator, recmena appreciated BS elevated- will increased 70/30 to 15 units BID and monitor - goal under 200 consistently (3) HTN (hypertension): Code(s): I10 - Essential (primary) hypertension Status: Acute Assessment and Plan: Blood pressures on admission 129/87 mmhg. Now 140-150's systolic. Patient is not on anti-hypertensives at home. Elevation could be from IVF. He is on a regular diet. Will decrease fluids and possibly d/c all together if his nausea, vomiting has resolved. Losartan 50 mg PO daily started 06/10 140-160/70-80's, HR 70's -monitor garcia now, will see what is the cheapest option for pt for BP meds -discussed options for BP meds upon discharge- [id number] mg/hctz 12.5 is 10$ for 90 days- will write a script for that-so pt can afford the medication (4) COVID: Code(s): U07.1 - COVID-19 Status: Acute Assessment and Plan: He reports having upper respiratory symptoms that started a week ago, he thought he had a cold. He reports a dry non-productive cough but otherwise no respiratory symptoms. COVID + on admission conservative treatment droplet precautions (5) FEMI (obstructive sleep apnea): Code(s): G47.33 - Obstructive sleep apnea (adult) (pediatric) Status: Acute Assessment and Plan: Concerns for obstructive sleep apnea so an apnea link was preformed Apnea link reports AHI of 70.1, JOSELINE 74.8 Average saturation was 95%, lowest saturation
[2024-06-13 14:00] VITALS: BP 147/80; PULSE 87; RESP 16; TEMP 36.3; O2SAT 100
--- NOTE | 2024-06-13 15:02 | PM.PNGS ---
Progress Note: A&P Assessment and Plan (1) Necrotizing fasciitis of lower leg: Code(s): M72.6 - Necrotizing fasciitis Status: Acute Assessment and Plan: Right foot wound continues to heal well. Continue local wound care with silver gel dressing changes and iodoform packing. Cover with 4x4, ABD, and Kerlix/oni wrap. His niece will be doing his dressing changes after discharge. Ambulate with postop shoe. Keep foot elevated. Follow-up with Dr. Jauregui on Monday in our office for wound check. (2) Diabetic foot infection: Code(s): E11.628 - Type 2 diabetes mellitus with other skin complications; L08.9 - Local infection of the skin and subcutaneous tissue, unspecified Status: Acute Assessment and Plan: Okay to stop antibiotics on discharge. (3) Diabetic foot ulcer associated with type 2 diabetes mellitus: Qualifiers: Diabetic foot ulcer location: toe Laterality: right Non-pressure ulcer stage: unspecified non-pressure ulcer stage Qualified Code(s): E11.621 - Type 2 diabetes mellitus with foot ulcer; L97.519 - Non-pressure chronic ulcer of other part of right foot with unspecified severity Code(s): E11.621 - Type 2 diabetes mellitus with foot ulcer; L97.509 - Non-pressure chronic ulcer of other part of unspecified foot with unspecified severity Status: Acute Plan I have discussed the patient's case and plan of care with Dr. Jauregui. Subjective Subjective Date/Time Seen: 06/13/24 13:02 Post Op day: 5 (Open right transmetatarsal amputation 2nd toe with excisional debridement) Patient reports: no new complaints Interval history: No acute changes overnight. No new complaints. Exam Narrative: Right foot dressing dry and intact. Objective Data Vital Signs Vital Signs: Vital Signs - 24 hr 06/12/24 21:10 06/12/24 20:00 06/12/24 21:05 Temperature 97.7 F Pulse Rate 75 87 Respiratory Rate 18 Blood Pressure 164/90 H Pulse Oximetry 100 98 Oxygen Delivery Room Air CPAP 06/13/24 05:53 06/13/24 08:00 06/13/24 14:00 Temperature 97.9 F 97.4 F L Pulse Rate 83 87 Respiratory Rate 18 16 Blood Pressure 169/91 H 147/80 H Pulse Oximetry 99 100 Oxygen Delivery Room Air Intake/Output Intake/Output: Intake & Output 06/10/24 06/11/24 06/12/24 06/13/24 23:59 23:59 23:59 23:59 Intake Total 2043 2204 1780 920 Output Total 950 Balance 1093 2204 1780 920 Meds/Results Radiology Results: ITS Impressions Foot X-Ray 06/06/24 13:29 IMPRESSION: 1. Dorsal dislocation at the second metatarsophalangeal joint and dorsal subluxation versus potentially dislocation at the first metatarsophalangeal joint. The former is age indeterminate. The latter appears more likely chronic with likely secondary osteoarthritic changes at the base of the first proximal phalanx. 2. Deformities with chronic calcification at the distal third and fourth metatarsals which could represent sequela of old fractures, surgery or chronic osteomyelitis. 3. No non corticated cortical erosions or osteolysis to suggest osteomyelitis. Foot CT 06/08/24 10:32 IMPRESSION: 1. No specific evidence of osteomyelitis. 2. Dislocation of second metatarsophalangeal joint. 3. Polyarticular osteoarthritis. 4. Ulcer plantar to head of second metatarsal with edema and gas in the foot, consistent with cellulitis. Nonenhancing soft tissue from the ulcer to the head of the second metatarsal is likely devitalized soft tissue. Labs Labs: Laboratory Results - last 24 hr 06/12/24 06/12/24 06/13/24 16:08 21:03 05:42 WBC 7.5 RBC 4.14 L Hgb 11.9 L Hct 37.6 L MCV 90.8 MCH 28.7 MCHC 31.6 L RDW 13.4 Plt Count 380 H MPV 9.1 Immature Gran % (Auto) 3.6 H Neut % (Auto) 67.5 Lymph % (Auto) 18.4 [place] % (Auto) 7.3 Eos % (Auto) 2.7 Baso % (Auto) 0.5 Lymph # (Auto) 1.39 [place] # (Auto) 0.6 Eos # (Auto) 0.2 Baso # (Auto) 0.0 Ab
--- NOTE | 2024-06-21 14:22 | PCCDE ---
06/21/24 14:20 Follow up call attempted. Generic Msg left including direct phone #. FJ
== END 2024-06-13 14:20 | disposition home or self-care (01) | DRG 314 ==
LOC: ANHED 17:20 → ANH3MEDSUR 17:22
PROVIDERS: Internal Medicine; Nurse Practitioner Acute Care; Physician Assistant; Student in an Organized Health Care Education/Training Program; Surgery; Admitting Provider Family Medicine; Emergency Provider Emergency Medicine; Visit Provider Nurse Practitioner
PROC: 0Y6R0Z0 Detachment at Right 2nd Toe, Complete, Open Approach (ICD-10-PCS; principal; 2024-06-08 13:00)
DX: E11.69 Type 2 diabetes mellitus with other specified complication (principal); E11.65 Type 2 diabetes mellitus with hyperglycemia; E11.621 Type 2 diabetes mellitus with foot ulcer; L97.519 Non-pressure chronic ulcer of other part of right foot with unspecified severity; E11.52 Type 2 diabetes mellitus with diabetic peripheral angiopathy with gangrene; U07.1 COVID-19; B95.1 Streptococcus, group B, as the cause of diseases classified elsewhere; N17.9 Acute kidney failure, unspecified; E66.9 Obesity, unspecified; E11.42 Type 2 diabetes mellitus with diabetic polyneuropathy; H40.9 Unspecified glaucoma; H53.8 Other visual disturbances; K21.9 Gastro-esophageal reflux disease without esophagitis; L03.115 Cellulitis of right lower limb; E87.29 Other acidosis; E86.0 Dehydration; R06.81 Apnea, not elsewhere classified; Z66 Do not resuscitate; Z89.422 Acquired absence of other left toe(s); Z68.34 Body mass index [BMI] 34.0-34.9, adult; Z91.141 Patient's other noncompliance with medication regimen due to financial hardship
CPT/HCPCS: 36415; 73620; 73701; 73702; 80053; 80202; 82010; 82948; 83036; 83605; 83690; 83735; 84145; 85025; 85610; 85652; 86140; 87040; 87070; 87075; 87081; 87205; 87637; 88184; 88305; 88311; 94660; 94762; 96365; 96367; 96375; 99285; A9270; J0690; J0692; J0780; J1650; J1815; J1836; J2405; J2543; J3010; J3370; J7030; J7120; Q9967

== ENCOUNTER 2024-08-08 15:29 | Observation (INO) | payer MEDICAID, SELFPAY ==
[2024-08-08] VITALS (7 sets, daily range): BP systolic 128–168; BP diastolic 87–101; PULSE 98–110; RESP 15–20; TEMP 36.3–36.7; O2SAT 98–100; BMI 29.1
--- NOTE | ~2024-08-08 | CT_ITS ---
CLINICAL INDICATION: Right foot wound with drainage COMPARISON: 06/08/2024. TECHNIQUE: Multiple contiguous axial images of the right foot were performed following the administra tion of 100 mL of Omnipaque 350 intravenous contrast. The dose-length product (DLP) was 555.37 mGy-cm. Automated exposure control and iterative reconstruction technique were employed. FINDINGS/OBSERVATIONS: Widespread soft tissue edema is identified. No rim-enhancing fluid collection is appreciated within the area of clinical concern, or within the s oft tissues of the right foot. No gas is appreciated within the soft tissues. Redemonstration of transmetatarsal amputation of the second toe. IMPRESSION: Widespread soft tissue edema without a rim-enhancing fluid collection or gas within the soft tissues. Reviewed, dictated and finalized at location A. 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
--- NOTE | ~2024-08-08 | XR_ITS ---
HISTORY: ankle pain, recent fx/infection of foot COMPARISON: None TECHNIQUE: 3 views of the right ankle were performed FINDINGS: No acute fracture or dislocation. No significant soft tissue swelling. The ankle mortise is preserved. Bone mineralization is age-appropriate. IMPRESSION: No acute fracture or dislocation Reviewed, dictated and finalized at location A. E RELIEF DRIVER
--- NOTE | ~2024-08-08 | XR_ITS ---
HISTORY: ankle pain, recent fx/infection of foot COMPARISON: 06/06/2024 TECHNIQUE: 3 views of the right foot were performed FINDINGS: Interval amputation of the second metatarsal Dorsal and medial dislocation of the first tarsometatarsal joint with extraosseous bone formation. Chronic degenerative change within the third and fourth metatarsal heads. Plantar soft tissue swelling at the forefoot. IMPRESSION: Dorsal and medial dislocation of the first tarsal metatarsal joint, with overlying plantar soft tissu e swelling. Reviewed, dictated and finalized at location A. TICE BUSINESS ASST IMPRESSION: Dorsal and medial dislocation of the first tarsal metatarsal joint, with overly ing plantar soft tissue swelling.
--- NOTE | 2024-08-08 16:41 | ED_ITS ---
HPI - General Adult General Chief complaint: Skin/Abscess/Foreign Body <Virgen Bowen PA-C - Last Filed: 08/08/24 16:51> Stated complaint: ?infected foot <REANNA Burroughs Last Filed: 08/08/24 16:51> Time Seen by Provider: 08/08/24 16:41 <REANNA Burroughs Last Filed: 08/08/24 16:51> Focused HPI: Patient is a 48-year-old male who presents the ED with report of nausea, vomiting and right ankle pain. Patient reports he was recently admitted to the hospital here and had surgery for open right transmetatarsal amputation 2nd toe with excisional debridement skin for a necrotizing skin infection (performed on Jun 08, [address] Jauregui). patient has had several followups with Dr. Jauregui and has been doing well overall. Over the last 1 week, he has been having increased pain in his right ankle. He changes his bandages daily and states there is a deep area of the wound near his right lateral ankle which is still healing. He states he noticed increased drainage from this area this morning. He reports having nausea, vomiting over the past 1- 1.5 weeks. He has been able to keep down some food but states he gets very nauseous any time he tries to drink fluids. Denies abdominal pain, diarrhea, constipation, fevers. Patient is a diabetic. states BGs have been well controlled, less than 180. GENERAL: Well-appearing, well-nourished, and in no acute distress. HEAD: Normocephalic, atraumatic. CHEST: Clear to auscultation. ?No respiratory distress. HEART: Regular rate and rhythm.? MSK: R 2nd toe amputation, foot in boot. NEURO: ?Alert and oriented x3. Patient screened in triage and initial orders placed.? ?Additional care and disposition to be based upon?diagnostic testing and treatment. <Virgen Bowen PA-C - Last Filed: 08/08/24 16:51> Source: patient <REANNA Burroughs Last Filed: 08/08/24 16:51> Mode of arrival: ambulatory <REANNA Burroughs Last Filed: 08/08/24 16:51> Limitations: no limitations <REANNA Burroughs Last Filed: 08/08/24 16:51> Related Data Allergies/adverse reactions: Allergies Allergy/AdvReac Type Severity Reaction Status Date / Time No Known Allergies Allergy Verified 08/08/24 19:10 <Virgen Bowen PA-C - Last Filed: 08/08/24 16:51> Review of Systems Review of Systems: CONSTITUTIONAL: Denies fever SKIN: Reports redness and abnormal drainage MUSCULOSKELETAL: Reports joint pain, and myalgia. NEUROLOGIC: Denies numbness <REANNA John Last Filed: 08/08/24 21:38> All systems reviewed & are unremarkable except as noted in HPI and below <Jocelyn Mooney PA-C - Last Filed: 08/08/24 21:38> FORMERLY [facility], [facility] Past Medical History Medical History: Medical History Diabetic peripheral neuropathy Erectile dysfunction associated with type 2 diabetes mellitus Glaucoma Obesity (BMI 30.0-34.9) Osteomyelitis of toe of left foot (2020) Left 5th toe Type 2 diabetes mellitus (~04/2021) Officially diagnosed in 2020 but patient already had a foot wound and osteomyelitis of the left toe at that time Ulcer of left fifth toe due to diabetes mellitus (04/2021) With associated cellulitis <REANNA Burroughs Last Filed: 08/08/24 16:51> Surgical History Surgical History: Surgical History History of amputation of toe Left 5th toe History of ankle surgery <REANNA Burroughs Last Filed: 08/08/24 16:51> Family History Family History: Family History Father Heart disease Acute myocardial infarction, Onset Age: 62 Tobacco use Mother , She in her 70s Brain cancer Lung cancer Carcinoma of colon Other Arthritis Diabetes mellitus Hypertension Neuropathy Stomach cancer <Virgen Bowen PA-C - Last Filed: 08/08/24 16:51> Social History Social History: Social History Social History: Patient is single and lives alone. He states he has never been . Patient works for a local [employer]. He has his (non biologic) son part-time. He is a lifelong nonsmoker. He denies history of significant alcohol use or illicit substance use. Code status: DNR/DNI (per patient request) Surrogate decision maker: Sole Farnsworth (niece) Smoking status: Never smoker Second hand tobacco smoke exposure: No Alcohol intake: never Substance use: never Substance use type: does not use Current Housing: Decline to Answer Concerned About Future Housing: Decline to Answer Difficulty Paying Gas/Electric Bills: Decline to Answer Difficulty Paying for Meds: Decline to Answer Currently Unemployed: Decline to Answer Education: Decline to Answer Difficulty w/ Childcare or Family Care: Decline to Answer Living arrangements: alone Additional living arrangements comments: 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 HEAD: Normocephalic, atraumatic. EYES: EOMI. EXTREMITIES: Normal range of motion. Right 2nd toe amputation. Normal PT pulse. Large wound present to the dorsal surface of the foot. Mild surrounding redness and abnormal drainage to the most proximal portion of the wound SKIN: Warm, dry, no rash. NEURO: No focal deficits. Alert and oriented x3. PSYCH: Normal mood and affect <Jocelyn Mooney PA-C - Last Filed: 08/08/24 21:38> Course Course Emergency Course: Patient updated on his workup and recommendation for admission <Jocelyn Mooney PA-C - Last Filed: 08/08/24 21:38> PR[employer] ASSISTANT/PA Physician Supervision This visit was performed by both a physician and an APC. I performed all aspects of the MDM as documented. <Trenton Arboleda MD - Last Filed: 08/08/24 22:01> Consultations Consultation #1: Spoke with general surgery who will consult <Jocelyn Mooney PA-C - Last Filed: 08/08/24 21:38> Date: 08/08/24 <Jocelyn Mooney PA-C - Last Filed: 08/08/24 21:38> Consultation #2: Spoke with hospitalist about patient and workup who accepts admission <Jocelyn Mooney PA-C - Last Filed: 08/08/24 21:38> Date: 08/08/24 <REANNA John Last Filed: 08/08/24 21:38> Vital Signs Vital signs: Vital Signs Temperature 98.0 F 08/08/24 15:47 Pulse Rate 110 H 08/08/24 15:47 Respiratory Rate 16 08/08/24 15:47 Blood Pressure 132/88 08/08/24 15:47 Pulse Oximetry 100 08/08/24 15:47 Oxygen Delivery Room Air 08/08/24 15:47 Temperature 97.9 F 08/08/24 19:03 Pulse Rate 102 H 08/08/24 21:47 Respiratory Rate 15 08/08/24 21:47 Blood Pressure 150/88 H 08/08/24 21:47 Pulse Oximetry 100 08/08/24 21:47 Oxygen Delivery Room Air 08/08/24 17:59 <Virgen Bowen PA-C - Last Filed: 08/08/24 16:51> Vital Signs Temperature 98.0 F 08/08/24 15:47 Pulse Rate 110 H 08/08/24 15:47 Respiratory Rate 16 08/08/24 15:47 Blood Pressure 132/88 08/08/24 15:47 Pulse Oximetry 100 08/08/24 15:47 Oxygen Delivery Room Air 08/08/24 15:47 Temperature 97.9 F 08/08/24 19:03 Pulse Rate 102 H 08/08/24 21:47 Respiratory Rate 15 08/08/24 21:47 Blood Pressure 150/88 H 08/08/24 21:47 Pulse Oximetry 100 08/08/24 21:47 Oxygen Delivery Room Air 08/08/24 17:59 <Jocelyn Mooney PA-C - Last Filed: 08/08/24 21:38> Vital Signs Temperature 98.0 F 08/08/24 15:47 Pulse Rate 110 H 08/08/24 15:47 Respiratory Rate 16 08/08/24 15:47 Blood Pressure 132/88 08/08/24 15:47 Pulse Oximetry 100 08/08/24 15:47 Oxygen Delivery Room Air 08/08/24 15:47 Temperature 97.9 F 08/08/24 19:03 Pulse Rate 102 H 08/08/24 21:47 Respiratory Rate 15 08/08/24 21:47 Blood Pressure 150/88 H 08/08/24 21:47 Pulse Oximetry 100 08/08/24 21:47 Oxygen Delivery Room Air 08/08/24 17:59 <Trenton Arboleda MD - Last Filed: 08/08/24 22:01> Medical Decision Making MDM Narrative Medical decision making narrative: MSE by NATE in triage. <Virgen Bowen PA-C - Last Filed: 08/08/24 16:51> MSE by NATE in triage. Patient presents to the emergency department for foot infection. Reporting pain in his right foot and ankle. Currently has a wound to the area that is being followed by General surgery. There is small area that is red and has some abnormal drainage. This was sent for culture. Tachycardic upon arrival, this responded IV fluids. CBC with leukocytosis to 10.8. Inflammatory markers are elevated. Metabolic panel with evidence of acute kidney injury CT of the foot o btained for further evaluation. Shows widespread soft tissue edema, no abscess or gas. Spoke with general surgery who will consult. Spoke with hospitalist about patient and workup who accepts admission. Blood cultures drawn and patient started on IV antibiotics <Jocelyn Mooney PA-C - Last Filed: 08/08/24 21:38> Differential Diagnosis Differential Diagnosis: Cellulitis, abscess <REANNA John Last Filed: 08/08/24 21:38> Vital Signs Vital Signs: Vital Signs Temperature 98.0 F 08/08/24 15:47 Pulse Rate 110 H 08/08/24 15:47 Respiratory Rate 16 08/08/24 15:47 Blood Pressure 132/88 08/08/24 15:47 Pulse Oximetry 100 08/08/24 15:47 Oxygen Delivery Room Air 08/08/24 15:47 Temperature 97.9 F 08/08/24 19:03 Pulse Rate 102 H 08/08/24 21:47 Respiratory Rate 15 08/08/24 21:47 Blood Pressure 150/88 H 08/08/24 21:47 Pulse Oximetry 100 08/08/24 21:47 Oxygen Delivery Room Air 08/08/24 17:59 <Virgen Bowen PA-C - Last Filed: 08/08/24 16:51> Vital Signs Temperature 98.0 F 08/08/24 15:47 Pulse Rate 110 H 08/08/24 15:47 Respiratory Rate 16 08/08/24 15:47 Blood Pressure 132/88 08/08/24 15:47 Pulse Oximetry 100 08/08/24 15:47 Oxygen Delivery Room Air 08/08/24 15:47 Temperature 97.9 F 08/08/24 19:03 Pulse Rate 102 H 08/08/24 21:47 Respiratory Rate 15 08/08/24 21:47 Blood Pressure 150/88 H 08/08/24 21:47 Pulse Oximetry 100 08/08/24 21:47 Oxygen Delivery Room Air 08/08/24 17:59 <REANNA John Last Filed: 08/08/24 21:38> Vital Signs Temperature 98.0 F 08/08/24 15:47 Pulse Rate 110 H 08/08/24 15:47 Respiratory Rate 16 08/08/24 15:47 Blood Pressure 132/88 08/08/24 15:47 Pulse Oximetry 100 08/08/24 15:47 Oxygen Delivery Room Air 08/08/24 15:47 Temperature 97.9 F 08/08/24 19:03 Pulse Rate 102 H 08/08/24 21:47 Respiratory Rate 15 08/08/24 21:47 Blood Pressure 150/88 H 08/08/24 21:47 Pulse Oximetry 100 08/08/24 21:47 Oxygen Delivery Room Air 08/08/24 17:59 <Trenton Arboleda MD - Last Filed: 08/08/24 22:01> Lab Data Lab results reviewed: Yes I reviewed the patient's lab results. <Jocelyn Mooney PA-C - Last Filed: 08/08/24 21:38> Result diagrams: 08/08/24 17:29 08/08/24 17:29 <Virgen Bowen PA-C - Last Filed: 08/08/24 16:51> Labs: Lab Results 08/08/24 Range/Units 17:29 WBC 10.8 H (4.5-10.0) K/mm3 RBC 4.69 (4.6-6.20) M/mm3 Hgb 12.7 L (14.0-18.0) g/dL Hct 38.7 L (42.0-52.0) % MCV 82.5 (80-100) fl MCH 27.1 (26-34) pg MCHC 32.8 (32-36) g/dl RDW 13.2 (11.5-14.5) % Plt Count 450 H (150-375) k/mm3 MPV 8.9 (7.4-10.4) fl Immature Gran % (Auto) 0.7 H (0-0.5) % Neut % (Auto) 75.8 H (45.5-73.1) % Lymph % (Auto) 14.1 L (18.3-44.2) % Crenshaw % (Auto) 7.6 (2.6-8.5) % Eos % (Auto) 1.3 (0-4.4) % Baso % (Auto) 0.5 (0.2-1.2) % Lymph # (Auto) 1.52 (0.9-3.2) K/mm3 Crenshaw # (Auto) 0.8 H (0.1-0.6) K/mm3 Eos # (Auto) 0.1 (0-0.3) K/mm3 Baso # (Auto) 0.1 (0.0-0.1) K/mm3 Abs Immat Gran (auto) 0.07 H (0.00-0.031) K/mm3 Absolute Neuts (auto) 8.2 H (1.3-6.7) K/mm3 Absolute Nucleated RBC 0.000 (0.0-0.012) K/mm3 Nucleated RBC % 0.0 (0.0-0.2) % ESR 46 H (0-20) mm/hr Sodium 139 (137-145) mmol/L Potassium 3.6 (3.4-5.0) mmol/L Chloride 99 (98-107) mmol/L Carbon Dioxide 26 (22-30) mmol/L Anion Gap 14 H (4-12) mmol/L BUN 38 H D (9-20) mg/dL Creatinine 2.00 H (0.7-1.3) mg/dL Estim Creat Clear Calc Not Reportable Estimated GFR 36 L (59 - ) Glucose 216 H (65-110) mg/dL Hemoglobin A1c 8.9 H (<5.7) % Lactic Acid 1.4 (0.7-2.0) mmol/L Calcium 8.9 (8.4-10.2) mg/dL Total Bilirubin 1.0 (0.2-1.3) mg/dL AST 18 (17-59) U/L ALT 10 (6-50) U/L Alkaline Phosphatase 85 (38-126) U/L C-Reactive Protein 20.0 H (<1.0) mg/dL Total Protein 9.0 H (6.3-8.2) g/dL Albumin 4.0 (3.5-5.1) g/dL <Virgen Bowen PA-C - Last Filed: 08/08/24 16:51> Lab Results 08/08/24 Range/Units 17:29 WBC 10.8 H (4.5-10.0) K/mm3 RBC 4.69 (4.6-6.20) M/mm3 Hgb 12.7 L (14.0-18.0) g/dL Hct 38.7 L (42.0-52.0) % MCV 82.5 (80-100) fl MCH 27.1 (26-34) pg MCHC 32.8 (32-36) g/dl RDW 13.2 (11.5-14.5) % Plt Count 450 H (150-375) k/mm3 MPV 8.9 (7.4-10.4) fl Immature Gran % (Auto) 0.7 H (0-0.5) % Neut % (Auto) 75.8 H (45.5-73.1) % Lymph % (Auto) 14.1 L (18.3-44.2) % Crenshaw % (Auto) 7.6 (2.6-8.5) % Eos % (Auto) 1.3 (0-4.4) % Baso % (Auto) 0.5 (0.2-1.2) % Lymph # (Auto) 1.52 (0.9-3.2) K/mm3 Crenshaw # (Auto) 0.8 H (0.1-0.6) K/mm3 Eos # (Auto) 0.1 (0-0.3) K/mm3 Baso # (Auto) 0.1 (0.0-0.1) K/mm3 Abs Immat Gran (auto) 0.07 H (0.00-0.031) K/mm3 Absolute Neuts (auto) 8.2 H (1.3-6.7) K/mm3 Absolute Nucleated RBC 0.000 (0.0-0.012) K/mm3 Nucleated RBC % 0.0 (0.0-0.2) % ESR 46 H (0-20) mm/hr Sodium 139 (137-145) mmol/L Potassium 3.6 (3.4-5.0) mmol/L Chloride 99 (98-107) mmol/L Carbon Dioxide 26 (22-30) mmol/L Anion Gap 14 H (4-12) mmol/L BUN 38 H D (9-20) mg/dL Creatinine 2.00 H (0.7-1.3) mg/dL Estim Creat Clear Calc Not Reportable Estimated GFR 36 L (59 - ) Glucose 216 H (65-110) mg/dL Hemoglobin A1c 8.9 H (<5.7) % Lactic Acid 1.4 (0.7-2.0) mmol/L Calcium 8.9 (8.4-10.2) mg/dL Total Bilirubin 1.0 (0.2-1.3) mg/dL AST 18 (17-59) U/L ALT 10 (6-50) U/L Alkaline Phosphatase 85 (38-126) U/L C-Reactive Protein 20.0 H (<1.0) mg/dL Total Protein 9.0 H (6.3-8.2) g/dL Albumin 4.0 (3.5-5.1) g/dL <Jocelyn Mooney PA-C - Last Filed: 08/08/24 21:38> Lab Results 08/08/24 Range/Units 17:29 WBC 10.8 H (4.5-10.0) K/mm3 RBC 4.69 (4.6-6.20) M/mm3 Hgb 12.7 L (14.0-18.0) g/dL Hct 38.7 L (42.0-52.0) % MCV 82.5 (80-100) fl MCH 27.1 (26-34) pg MCHC 32.8 (32-36) g/dl RDW 13.2 (11.5-14.5) % Plt Count 450 H (150-375) k/mm3 MPV 8.9 (7.4-10.4) fl Immature Gran % (Auto) 0.7 H (0-0.5) % Neut % (Auto) 75.8 H (45.5-73.1) % Lymph % (Auto) 14.1 L (18.3-44.2) % Crenshaw % (Auto) 7.6 (2.6-8.5) % Eos % (Auto) 1.3 (0-4.4) % Baso % (Auto) 0.5 (0.2-1.2) % Lymph # (Auto) 1.52 (0.9-3.2) K/mm3 Crenshaw # (Auto) 0.8 H (0.1-0.6) K/mm3 Eos # (Auto) 0.1 (0-0.3) K/mm3 Baso # (Auto) 0.1 (0.0-0.1) K/mm3 Abs Immat Gran (auto) 0.07 H (0.00-0.031) K/mm3 Absolute Neuts (auto) 8.2 H (1.3-6.7) K/mm3 Absolute Nucleated RBC 0.000 (0.0-0.012) K/mm3 Nucleated RBC % 0.0 (0.0-0.2) % ESR 46 H (0-20) mm/hr Sodium 139 (137-145) mmol/L Potassium 3.6 (3.4-5.0) mmol/L Chloride 99 (98-107) mmol/L Carbon Dioxide 26 (22-30) mmol/L Anion Gap 14 H (4-12) mmol/L BUN 38 H D (9-20) mg/dL Creatinine 2.00 H (0.7-1.3) mg/dL Estim Creat Clear Calc Not Reportable Estimated GFR 36 L (59 - ) Glucose 216 H (65-110) mg/dL Hemoglobin A1c 8.9 H (<5.7) % Lactic Acid 1.4 (0.7-2.0) mmol/L Calcium 8.9 (8.4-10.2) mg/dL Total Bilirubin 1.0 (0.2-1.3) mg/dL AST 18 (17-59) U/L ALT 10 (6-50) U/L Alkaline Phosphatase 85 (38-126) U/L C-Reactive Protein 20.0 H (<1.0) mg/dL Total Protein 9.0 H (6.3-8.2) g/dL Albumin 4.0 (3.5-5.1) g/dL <Trenton Arboleda MD - Last Filed: 08/08/24 22:01> Imaging Data Radiologist's impression: ITS Impressions Ankle X-Ray 08/08/24 17:47 IMPRESSION: No acute fracture or dislocation Foot X-Ray 08/08/24 17:51 IMPRESSION: Dorsal and medial dislocation of the first tarsal metatarsal joint, with overlying plantar soft tissue swelling. Foot CT 08/08/24 20:40 IMPRESSION: Widespread soft tissue edema without a rim-enhancing fluid collection or gas within the soft tissues. <Jocelyn Mooney PA-C - Last Filed: 08/08/24 21:38> Critical Care Time Critical Care Time Critical Care Time: Yes <Jocelyn Mooney PA-C - Last Filed: 08/08/24 21:38> Total Critical Care Time: 35 <Jocelyn Mooney PA-C - Last Filed: 08/08/24 21:38> Discharge Plan Discharge Clinical Impression: Acute kidney injury Diabetes mellitus Qualifiers: Diabetes mellitus type: type 2 Diabetes mellitus intermediate frame tender insulin use: with skilled nursing use Diabetes mellitus complication status: with skin complications Diabetes mellitus complication detail: with other skin complication Qualified Code(s): E11.628 - Type 2 diabetes mellitus with other skin complications <Virgen Bowen PA-C - Last Filed: 08/08/24 16:51> Patient Disposition: Still a Patient <Virgen Bowen PA-C - Last Filed: 08/08/24 16:51> Condition: Stable <Virgen Bowen PA-C - Last Filed: 08/08/24 16:51>
[2024-08-08 17:49] LABS: Basophils Absolute Auto 0.1 K/mm3 (0.0-0.1); Basophils Percent Auto 0.5 % (0.2-1.2); Eosinophils Absolute Auto 0.1 K/mm3 (0-0.3); Eosinophils Percent Auto 1.3 % (0-4.4); Hematocrit 38.7 % (42.0-52.0); Hemoglobin 12.7 g/dL (14.0-18.0); Immature Granulocyte Absolute 0.07 K/mm3 (0.00-0.031); Immature Granulocyte Percent A 0.7 % (0-0.5); Lymphocytes Absolute Auto 1.52 K/mm3 (0.9-3.2); Lymphocytes Percent Auto 14.1 % (18.3-44.2); Mean Corpuscular HGB Conc 32.8 g/dl (32-36); Mean Corpuscular Hemoglobin 27.1 pg (26-34); Mean Corpuscular Volume 82.5 fl (80-100); Mean Platelet Volume 8.9 fl (7.4-10.4); Monocytes Absolute Auto 0.8 K/mm3 (0.1-0.6); Monocytes Percent Auto 7.6 % (2.6-8.5); Neutrophils Absolute Auto 8.2 K/mm3 (1.3-6.7); Neutrophils Percent Auto 75.8 % (45.5-73.1); Platelet Count Result 450 k/mm3 (150-375); Red Blood Count 4.69 M/mm3 (4.6-6.20); Red Cell Distribution Width 13.2 % (11.5-14.5); White Blood Count 10.8 K/mm3 (4.5-10.0)
[2024-08-08 17:58] LABS: Lactic Acid Reflex 1.4 mmol/L (0.7-2.0)
[2024-08-08] MEDS: SODIUM CHLORIDE 0.9% IV 1,000 ML 999 ML IV CONT (17:58)
[2024-08-08 18:08] LABS: Alanine Aminotransferase 10 U/L (6-50); Alkaline Phosphatase 85 U/L (38-126); Anion Gap 14 mmol/L (4-12); Aspartate Amino Transferase 18 U/L (17-59); Blood Urea Nitrogen 38 mg/dL (9-20); Calcium 8.9 mg/dL (8.4-10.2); Carbon Dioxide 26 mmol/L (22-30); Chloride 99 mmol/L (98-107); Estimated Glomerular Filt Rate 36; Glucose 216 mg/dL (65-110); Potassium 3.6 mmol/L (3.4-5.0); Sodium 139 mmol/L (137-145)
[2024-08-08 18:23] LABS: Erythrocyte Sedimentation Rate 46 mm/hr (0-20)
[2024-08-08 18:26] LABS: Hemoglobin A1C 8.9 % (<5.7)
[2024-08-08] MEDS: CEFEPIME 2 GM/NS 50 ML 2 GM/50 ML BAG IVPB (18:46)
[2024-08-08] MEDS: metroNIDAZOLE 500 MG/ISO 100ML 500 MG/100 ML BAG 100 MG IVPB (20:01)
[2024-08-08] MEDS: VANCOMYCIN 1,750 MG/NS 500 ML 1,750 MG/500 ML BAG 250 MG IVPB (21:12)
--- NOTE | 2024-08-08 21:20 | P.HP_ITS ---
H&P: HPI History of Present Illness Date/Time: 08/08/24 21:20 Chief Complaint: wound drainage Narrative: This is a 48-year-old male with past medical history significant for obesity, insulin-dependent diabetes mellitus, diabetic peripheral neuropathy, bilateral diabetic foot, patient comes due to drainage of right foot to wound, nausea, vomiting, fevers, pain. Patient has been admitted for further evaluation m anagement and treatment. CLINICAL INDICATION: Right foot wound with drainage COMPARISON: 06/08/2024. TECHNIQUE: Multiple contiguous axial images of the right foot were performed following the administration of 100 mL of Omnipaque 350 intravenous contrast. The dose-length product (DLP) was 555.37 mGy-cm. Automated exposure control and iterative reconstruction technique were employed. FINDINGS/OBSERVATIONS: Widespread soft tissue edema is identified. No rim-enhancing fluid collection is appreciated within the area of clinical concern, or within the soft tissues of the right foot. No gas is appreciated within the soft tissues. Redemonstration of transmetatarsal amputation of the second toe. IMPRESSION: Widespread soft tissue edema without a rim-enhancing fluid collection or gas within the soft tissues. [facility] Past Medical History Medical History Diabetic peripheral neuropathy Erectile dysfunction associated with type 2 diabetes mellitus Glaucoma Obesity (BMI 30.0-34.9) Osteomyelitis of toe of left foot (2020) Left 5th toe Type 2 diabetes mellitus (~04/2021) Officially diagnosed in 2020 but patient already had a foot wound and osteomyelitis of the left toe at that time Ulcer of left fifth toe due to diabetes mellitus (04/2021) With associated cellulitis Surgical History Surgical History History of amputation of toe Left 5th toe History of ankle surgery Family History Family History (Updated 08/08/24 @ 22:19 by Alexa Diaz RN) Father Acute myocardial infarction, Onset Age: 62 Heart disease Tobacco use Mother , She in her 70s Brain cancer Lung cancer Carcinoma of colon Grandparent Diabetes mellitus Other Arthritis Hypertension Neuropathy Stomach cancer Social History Social History Social History: Patient is single and lives alone. He states he has never been . Patient works for a [employer]. He has his (non biologic) son part-time. He is a lifelong nonsmoker. He denies history of significant alcohol use or illicit substance use. Code status: DNR/DNI (per patient request) Surrogate decision maker: Sole Farnsworth (niece) Smoking status: Never smoker Second hand tobacco smoke exposure: No Alcohol intake: never Substance use: never Substance use type: does not use Do You Feel Safe in your Home?: Yes Lack of Transportation: No Lack of Food: Never True Current Housing: I Have Housing Concerned About Future Housing: No Difficulty Paying Gas/Electric Bills: No Difficulty Paying for Meds: No Currently Unemployed: No Education: High School Diploma/GED Difficulty w/ Childcare or Family Care: No Living arrangements: alone Additional living arrangements comments: Son 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 him 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 Occupation/Education: occupation 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 Gender identity (if verbalized by the patient): Male Spiritual care concerns: No Meds Home Medications and Allergies Home Medications Medication Instructions Recorded Confirmed Type losartan 50 mg-hydrochlorothiazide 1 tablet PO DAILY #90 tabs 06/13/24 08/08/24 Rx 12.5 mg tablet insulin human U-100 NPH-regulr 15 unit subcut BID 08/08/24 08/08/24 History 70-30 mix 100 unit/mL subcutaneous susp (Novolin 70/30 U-100 Insulin) metformin 500 mg tablet,extended 500 mg PO BID 08/08/24 08/08/24 History release 24 hr semaglutide 0.25 mg or 0.5 mg (2 0.25 mg subcut WEEKLY 08/08/24 08/08/24 History mg/3 mL) subcutaneous pen injector (Ozempic) Allergies Allergy/AdvReac Type Severity Reaction Status Date / Time No Known Allergies Allergy Verified 08/08/24 19:10 Vital Signs Vital Signs - 24 hr 08/08/24 15:47 08/08/24 17:59 08/08/24 18:01 Temperature 98.0 F 97.9 F Pulse Rate 110 H 109 H 98 Respiratory Rate 16 16 16 Blood Pressure 132/88 128/87 141/90 H Pulse Oximetry 100 100 100 Oxygen Delivery Room Air Room Air 08/08/24 19:03 Temperature 97.9 F Pulse Rate 98 Respiratory Rate 16 Blood Pressure 156/96 H Pulse Oximetry 98 Oxygen Delivery Exam Const: General: comfortable, no acute distress, well developed, alert, awake and obese Nutritional Appearance: obese Orientation/consciousness: patient oriented x3 HENMT: Head: normal to inspection, normocephalic and atraumatic Ears: hearing grossly normal bilaterally Face/Nose/Sinus: normal facial exam Face and sinus: normal facial exam Eyes: General: appearance normal, both eyes and all related structures Pupils: Equal, round and reactive pupils present EOM: EOMs intact bilaterally Neck: Neck: full ROM, no lymphadenopathy and no JVD Thyroid: thyroid normal Lymphatic: no lymphadenopathy noted Resp: Effort & Inspection: normal respiratory effort and able to speak in complete sentences Auscultation: clear to auscultation bilaterally Cardio: Jugular venous distension: no JVD Rate: regular rate Rhythm: regular rhythm Heart sounds: S1 normal heart sound present and S2 normal heart sound present GI: GI Palp: Yes Soft to palpation and Yes No hepatosplenomegaly present : General: Yes deferred Skin: Rashes: no rashes Wounds: wounds noted right foot Neuro: General: patient oriented x3 and CN's II-XI intact bilaterally Cranial nerves: Yes CN's II-XII intact bilaterally and Yes Equal, round and reactive pupils present Cognition (Neuro): normal cognition Speech: normal speech Gait exam (Neuro): Normal gait present Motor exam (neuro): 5/5 motor strength present throughout Extrem: General: normal to inspection, full ROM, no joint enlargement and no pedal edema H&P: Results Labs Labs: Short CBC 08/08/24 Range/Units 17:29 WBC 10.8 H (4.5-10.0) K/mm3 Hgb 12.7 L (14.0-18.0) g/dL Hct 38.7 L (42.0-52.0) % Plt Count 450 H (150-375) k/mm3 BMP 08/08/24 17:29 Sodium 139 Potassium 3.6 Chloride 99 Carbon Dioxide 26 BUN 38 H D Creatinine 2.00 H Glucose 216 H Calcium 8.9 Liver Function 08/08/24 Range/Units 17:29 Total Bilirubin 1.0 (0.2-1.3) mg/dL AST 18 (17-59) U/L ALT 10 (6-50) U/L Alkaline Phosphatase 85 (38-126) U/L Albumin 4.0 (3.5-5.1) g/dL Assessment and Plan Assessment and plan (1) Diabetic foot infection: Code(s): E11.628 - Type 2 diabetes mellitus with other skin complications; L08.9 - Local infection of the skin and subcutaneous tissue, unspecified Status: Acute Assessment and Plan: Admit to med surg patient started on Flagyl, vancomycin and cefepime await cultures general surgery consult (2) Acute kidney injury: Code(s): N17.9 - Acute kidney failure, unspecified Status: Acute Assessment and Plan: holding losartan holding hydrochlorothiazide IV fluids (3) Insulin dependent diabetes mellitus: Status: Acute Assessment and Plan: holding metformin (4) FEMI (obstructive sleep apnea): Code(s): G47.33 - Obstructive sleep apnea (adult) (pediatric) Status: Acute Assessment and Plan: CPAP at nighttime (5) HTN (hypertension): Code(s): I10 - Essential (primary) hypertension Status: Acute Assessment and Plan: continue to monitor (6) GERD (gastroesophageal reflux disease): Qualifiers: Esophagitis presence: esophagitis presence not specified Qualified Code(s): K21.9 - Gastro-esophageal reflux disease without esophagitis Code(s): K21.9 - Gastro-esophageal reflux disease without esophagitis Status: Acute Assessment and Plan: PPI (7) Nausea & vomiting: Code(s): R11.2 - Nausea with vomiting, unspecified Status: Acute Assessment and Plan: likely secondary to acute illness supportive care (8) Cellulitis of foot, left: Code(s): L03.116 - Cellulitis of left lower limb Status: Acute Assessment and Plan: as 1. Hospitalist [facility] Advance Care Plan I have confirmed that the patient's Advanced Care Plan is present, code status is documented, or surrogate decision maker is listed in patient medical record.: Yes Medication Reconciliation I have utilized all available resources to obtain, update and review the patient s current medications (includes all prescriptions, OTC, herbals, cannabis, and nutritional supplements).: Yes
[2024-08-08 21:41] LABS: Glucose Point of Care 156 mg/dl (65-105)
--- NOTE | 2024-08-08 22:10 | ADMGEN ---
This patient, Kain Montejo, was admitted to 2 Medical Room 240-01. Patient/family oriented to hospital policies and general routines including ID bracelet, bed and alarms, visiting hours, pain management, procedures, bathroom and other care routines, personal items, smoking policy, room service/diet, and visiting hours. Information on how to activate the Rapid Response Team has been discussed. Patient/Family are encouraged to report perceived risks to care and to ask questions if they do not understand what they are told or what they should do. Report received from SURAJ Fraire in ED.
[2024-08-08] MEDS: ONDANSETRON INJ 4 MG/2 ML VIAL IV PUSH (22:49)
[2024-08-09] MEDS: metroNIDAZOLE 500 MG/ISO 100ML 500 MG/100 ML BAG 100 MG IVPB ×2 (04:34→11:07)
[2024-08-09] MEDS: CEFEPIME 2 GM/NS 50 ML 2 GM/50 ML BAG IVPB (05:28)
[2024-08-09] MEDS: ONDANSETRON INJ 4 MG/2 ML VIAL IV PUSH ×2 (05:41→12:11)
[2024-08-09 06:00] VITALS: BP 152/89; PULSE 103; RESP 20; TEMP 37.1; O2SAT 100
--- NOTE | 2024-08-09 07:44 | P.PNIM_ITS ---
Progress Note: A&P Assessment and Plan (1) Diabetic foot infection: Code(s): E11.628 - Type 2 diabetes mellitus with other skin complications; L08.9 - Local infection of the skin and subcutaneous tissue, unspecified Status: Acute Assessment and Plan: Admit to med surg patient started on Flagyl, vancomycin and cefepime await cultures general surgery consult MRSA swab ordered (2) Acute kidney injury: Code(s): N17.9 - Acute kidney failure, unspecified Status: Acute Assessment and Plan: holding losartan holding hydrochlorothiazide IV fluids (3) Insulin dependent diabetes mellitus: Status: Acute Assessment and Plan: holding metformin, holding home 70/30 insulin -lantus 15 units, ss, hypoglycemia protocol monitor BS and adjust as needed diab. diet (4) FEMI (obstructive sleep apnea): Code(s): G47.33 - Obstructive sleep apnea (adult) (pediatric) Status: Acute Assessment and Plan: CPAP at nighttime (5) HTN (hypertension): Code(s): I10 - Essential (primary) hypertension Status: Acute Assessment and Plan: continue to monitor holding losartan/hctx will add amlodipine for now (6) GERD (gastroesophageal reflux disease): Qualifiers: Esophagitis presence: esophagitis presence not specified Qualified Code(s): K21.9 - Gastro-esophageal reflux disease without esophagitis Code(s): K21.9 - Gastro-esophageal reflux disease without esophagitis Status: Acute Assessment and Plan: PPI (7) Nausea & vomiting: Code(s): R11.2 - Nausea with vomiting, unspecified Status: Acute Assessment and Plan: likely secondary to acute illness supportive care (8) Cellulitis of foot, left: Code(s): L03.116 - Cellulitis of left lower limb Status: Acute Assessment and Plan: as 1. (9) Nausea: Code(s): R11.0 - Nausea Status: Acute Assessment and Plan: zofran prn ordered Time Spent With Patient Time with patient: Greater than 35 minutes Subjective Date/time seen: 08/09/24 07:44 Interval history: This is a 48-year-old male with past medical history significant for obesity, insulin-dependent diabetes mellitus, diabetic peripheral neuropathy, bilateral diabetic foot, patient comes due to drainage of right foot to wound, nausea, vomiting, fevers, pain. Patient has been admitted for further evaluation management and treatment. 08/09- pt is seen and examined this am. C/o nausea, vomited x 1. Advised to take zofran 20-30 min priorto eating to prevent nausea Review of Systems Constitutional: Constitutional: Denies chills Cardiovascular: Cardiovascular: Denies chest pain Respiratory: Respiratory: Denies chest congestion Gastrointestinal: Gastrointestinal: Reports nausea and Reports vomiting Exam Const: General: comfortable, no acute distress, well developed, alert, awake and obese Nutritional Appearance: obese Orientation/consciousness: patient oriented x3 HENMT: Head: normal to inspection, normocephalic and atraumatic Ears: hearing grossly normal bilaterally Face/Nose/Sinus: normal facial exam Face and sinus: normal facial exam Eyes: General: appearance normal, both eyes and all related structures Pupils: Equal, round and reactive pupils present EOM: EOMs intact bilaterally Neck: Neck: full ROM, no lymphadenopathy and no JVD Thyroid: thyroid normal Lymphatic: no lymphadenopathy noted Resp: Effort & Inspection: normal respiratory effort and able to speak in complete sentences Auscultation: clear to auscultation bilaterally Cardio: Jugular venous distension: no JVD Rate: regular rate Rhythm: regular rhythm Heart sounds: S1 normal heart sound present and S2 normal heart sound present : General: Yes deferred Skin: General skin exam: wounds noted Rashes: no rashes Wounds: wounds noted Other: dressing to Neuro: General: patient oriented x3 and CN's II-XI intact bilaterally Cranial nerves: Yes CN's II-XII intact bilaterally and Yes Equal, round and reactive pupils present Cognition (Neuro): normal cognition Speech: normal speech Gait exam (Neuro): Normal gait present Motor exam (neuro): 5/5 motor strength present throughout Extrem: General: normal to inspection, full ROM, no joint enlargement and no pedal edema Objective Data Vital Signs Vital Signs: Vital Signs - 24 hr 08/08/24 15:47 08/08/24 17:59 08/08/24 18:01 Temperature 98.0 F 97.9 F Pulse Rate 110 H 109 H 98 Respiratory Rate 16 16 16 Blood Pressure 132/88 128/87 141/90 H Pulse Oximetry 100 100 100 Oxygen Delivery Room Air Room Air 08/08/24 19:03 08/08/24 21:23 08/08/24 21:47 Temperature 97.9 F Pulse Rate 98 105 H 102 H Respiratory Rate 16 15 15 Blood Pressure 156/96 H 168/101 H 150/88 H Pulse Oximetry 98 100 100 Oxygen Delivery 08/08/24 22:35 08/08/24 22:40 08/09/24 06:00 Temperature 97.4 F L 98.8 F Pulse Rate 106 H 103 H Respiratory Rate 20 20 Blood Pressure 143/96 H 152/89 H Pulse Oximetry 100 100 Oxygen Delivery Room Air Intake/Output Intake/Output: Intake & Output 08/06/24 08/07/24 08/08/24 08/09/24 23:59 23:59 23:59 23:59 Intake Total 1650 250 Balance 1650 250 Meds/Results Medications: Active Medications Generic Name Dose Route Start Last Admin Trade Name Freq PRN Reason Stop Dose Admin Al Hydrox/Mg Hydrox/Simethicone 30 ml 08/09/24 00:55 Mag Hydrox/Al Hydrox/Simeth 30 Ml Udc PO Q6H PRN Indigestion Cefepime HCl 2 gm in 50 mls @ 100 mls/hr 08/09/24 06:00 08/09/24 05:58 Maxipime 2 Gm/Ns 50 Ml IVPB Infused Q12H ARLEEN Infusion Metronidazole 500 mg in 100 mls @ 100 mls/hr 08/09/24 04:00 08/09/24 05:34 Flagyl 500 Mg/Iso Soln 100 Ml IVPB Infused Q8H ARLEEN Infusion Insulin Human Isoph/Insulin Regular 15 units 08/09/24 09:00 Insulin Human Isophan/Regular 70/30 (*Bkc) 100 Units/Ml SUB-Q BID ARLEEN Ondansetron HCl 4 mg 08/09/24 00:55 Ondansetron Inj 4 Mg/2 Ml Vial IV PUSH Q6H PRN Nausea And Vomiting Polyethylene Glycol 17 gm 08/09/24 00:55 Polyethylene Glycol 3350 17 Gm Powd.Pack PO QAM PRN Constipation Vancomycin HCl 1 each 08/08/24 21:50 Vancomycin For Acute Kidney Injury IVPB PRN PRN Vancomycin Protocol Radiology Results: ITS Impressions Ankle X-Ray 08/08/24 17:47 IMPRESSION: No acute fracture or dislocation Foot X-Ray 08/08/24 17:51 IMPRESSION: Dorsal and medial dislocation of the first tarsal metatarsal joint, with overlying plantar soft tissue swelling. Foot CT 08/08/24 20:40 IMPRESSION: Widespread soft tissue edema without a rim-enhancing fluid collection or gas within the soft tissues. Labs Labs: Laboratory Results - last 24 hr 08/08/24 08/08/24 17:29 21:39 WBC 10.8 H RBC 4.69 Hgb 12.7 L Hct 38.7 L MCV 82.5 MCH 27.1 MCHC 32.8 RDW 13.2 Plt Count 450 H MPV 8.9 Immature Gran % (Auto) 0.7 H Neut % (Auto) 75.8 H Lymph % (Auto) 14.1 L Anderson % (Auto) 7.6 Eos % (Auto) 1.3 Baso % (Auto) 0.5 Lymph # (Auto) 1.52 Anderson # (Auto) 0.8 H Eos # (Auto) 0.1 Baso # (Auto) 0.1 Abs Immat Gran (auto) 0.07 H Absolute Neuts (auto) 8.2 H Absolute Nucleated RBC 0.000 Nucleated RBC % 0.0 ESR 46 H Sodium 139 Potassium 3.6 Chloride 99 Carbon Dioxide 26 Anion Gap 14 H BUN 38 H D Creatinine 2.00 H Estim Creat Clear Calc Not Reportable Estimated GFR 36 L Glucose 216 H POC Capillary Glucose 156 H Hemoglobin A1c 8.9 H Lactic Acid 1.4 Calcium 8.9 Total Bilirubin 1.0 AST 18 ALT 10 Alkaline Phosphatase 85 C-Reactive Protein 20.0 H Total Protein 9.0 H Albumin 4.0 Quality VTE Prophylaxis VTE prophylaxis: pharmacologic ordered
[2024-08-09 07:59] LABS: Glucose Point of Care 187 mg/dl (65-105)
[2024-08-09] MEDS: ENOXAPARIN 40 MG/0.4 ML SYRINGE SUB-Q (08:54)
[2024-08-09] MEDS: amLODIPine BESYLATE 10 MG TABLET PO (08:54)
[2024-08-09 09:03] LABS: Hematocrit 36.2 % (42.0-52.0); Mean Corpuscular HGB Conc 33.1 g/dl (32-36); Mean Corpuscular Hemoglobin 27.8 pg (26-34); Mean Platelet Volume 8.8 fl (7.4-10.4); Platelet Count Result 406 k/mm3 (150-375); Red Blood Count 4.31 M/mm3 (4.6-6.20); Red Cell Distribution Width 13.4 % (11.5-14.5); White Blood Count 10.1 K/mm3 (4.5-10.0)
[2024-08-09 10:03] LABS: Vancomycin Random 9.7 ug/mL (10-20)
[2024-08-09 10:19] LABS: Anion Gap 7 mmol/L (4-12); Blood Urea Nitrogen 27 mg/dL (9-20); Calcium 8.6 mg/dL (8.4-10.2); Carbon Dioxide 27 mmol/L (22-30); Chloride 103 mmol/L (98-107); Estimated CRCL calculation 62 ml/min; Estimated Glomerular Filt Rate 54; Glucose 188 mg/dL (65-110); Potassium 3.7 mmol/L (3.4-5.0); Sodium 137 mmol/L (137-145)
[2024-08-09 10:32] LABS: Estimated CRCL calculation 67 ml/min; Estimated Glomerular Filt Rate 58
[2024-08-09 11:51] LABS: Glucose Point of Care 194 mg/dl (65-105)
[2024-08-09 12:00] VITALS: BP 130/90; PULSE 109; RESP 16; O2SAT 100
[2024-08-09] MEDS: VANCOMYCIN 1,500 MG/NS 500 ML 1,500 MG/500 ML BAG 250 MG IVPB (12:12)
[2024-08-09 14:00] VITALS: BMI 29.1
--- NOTE | 2024-08-09 14:54 | PCWOUND ---
WOCN NOTE Spoke with Dr. Jauregui about right foot ulcers. Received orders to apply Silver gel to the wound daily, and to fit patient for a CAM walker boot. Also patient to be set up for outpatient wound clinic services and possible total contact cast applications.
[2024-08-09 14:57] VITALS: BP 134/92; PULSE 104; RESP 18; TEMP 37.3; O2SAT 97
[2024-08-09 15:13] LABS: MRSA (PCR) NOT DETECTED (NOT DETECTE)
--- NOTE | 2024-08-09 16:10 | PM.CNGS ---
Assessment and Plan Assessment and plan (1) Acute right ankle pain: Code(s): M25.571 - Pain in right ankle and joints of right foot Status: Acute Assessment and Plan: This pain has improved since yesterday. Pain was in the medial malleolus which is still somewhat tender. There is no evidence of infection or fracture in this area. I am not sure why he was having pain here. This does not appear to be associated with his lateral malleolus which still has an open wound associated with it. I spoke with Evelia, wound nurse specialist, and we will continue silver gel dressings to his entire open wound. He also was fitted with a cam boot for his right foot. He has tried walking in this and is able to walk with minimal discomfort. I do not think any other acute issues are going on. I talked with his hospitalist and the patient would like to go home today. That is fine with general surgery that he go home and follow up with us on this week as scheduled, 08/15/2024. (2) Open wound of right foot: Qualifiers: Encounter type: subsequent encounter Qualified Code(s): S91.301D - Unspecified open wound, right foot, subsequent encounter Code(s): S91.301A - Unspecified open wound, right foot, initial encounter Status: Chronic Assessment and Plan: Has been present since 06/08/2024. It has slowly been healing on silver gel dressings, no antibiotics, and gauze with Chris wrap. The wound looks even better in the hospital at this time than it did at his last office visit 07/25/2024. Continue silver gel dressings with gauze and Chris wrap as before. We will follow up as discussed above. I did discuss with the patient that there are imaging changes of osteomyelitis associated with his lateral malleolus. Thus far the lateral malleolus has been healing nicely but he has had some increased drainage in the last 3 or 4 days. We will continue to monitor this as an outpatient. If it is clearly not going to heal, he would probably need surgical debridement and 4 weeks of IV antibiotic therapy with continued wound care. We will monitor this as an outpatient. He does not need to stay in the hospital for this. (3) Nausea: Code(s): R11.0 - Nausea Status: Acute Assessment and Plan: Had been going on for about a week associated with some abdominal pain prior to admission. This has resolved and he feels better. I would like to go home. (4) Insulin dependent diabetes mellitus: Status: Chronic Assessment and Plan: Continue outpatient diabetic care. History of Present Illness Consult details Consult date: 08/09/24 Reason for consult: other (Right ankle pain, open wound) Requesting physician: Jocelyn Mooney PA-C Narrative: Patient is a 48-year-old man with insulin-dependent diabetes who is well known to me. I saw him initially June 08 of this year for a severe right foot diabetic foot infection. It appeared to originate from a 2nd metatarsal malposed her friends ulcer and then spread to create a gas-forming necrotizing infection devitalized Ng the 2nd toe and spreading proximally on the right foot. The proximal spread on the foot was from medial to lateral and included an area over the right lateral malleolus. He was taken to surgery on June 08 and underwent excision of the mouth perforans ulcer, open amputation of the 2nd toe and metatarsal as well as excisional debridement of the tracking infection on the foot and lateral malleolus. Cultures from this surgery grew only group B streptococci. As his wound healed and he was on antibiotics initially, he improved enough that he was able to be discharged on 06/13/2024. After going home, I have seen him regularly in the clinic. His right foot wound has been healing steadily using silver gel gauze and wrapping with gauze and Chris wrap. He was last seen in the office on 07/25/2020 for with continued healing noted. He is scheduled to see me again on 08/15/2024 in the office for another follow-up visit. The patient came to the emergency room yesterday, 08/08/2024, as he had been having nausea and some abdominal pain for about a week. He had also noted pain in his foot over the medial malleolus. The stomach complaints were had been occurring for over a week. The pain in his ankle had just occurred the day of admission. He tells me he was in a recliner and was extending his ankle trying to loosen up his calf when he heard a pop. Since then he has had severe pain at the medial malleolus and really been unable to bear weight. He was concerned he had new infection in his right foot and went to the emergency room yesterday. He was admitted in the emergency room and started on broad-spectrum antibiotics. I was asked to see the patient in consultation regarding his right foot wound and the abrupt onset of the pain in the right ankle at the medial malleolus. He has noticed increased drainage from the lateral malleolus which is associated with the wound and the initial debridement. This area has appeared to be healing but not quite as well as the rest of the wound. The lateral malleolus area was far worse than the rest of the wound initially and is definitely showing signs of healing but does not look as good as the rest of the wound. He had noticed increased drainage from this area in addition to the above symptoms. The pain he was experiencing does not include the lateral malleolus. He is seen now in consultation. Review of Systems Review of Systems: All systems reviewed & are unremarkable except as noted in HPI and below (HPI) [facility] Past Medical History Medical History Diabetic peripheral neuropathy Erectile dysfunction associated with type 2 diabetes mellitus Glaucoma Obesity (BMI 30.0-34.9) Osteomyelitis of toe of left foot (2020) Left 5th toe Type 2 diabetes mellitus (~04/2021) Officially diagnosed in 2020 but patient already had a foot wound and osteomyelitis of the left toe at that time Ulcer of left fifth toe due to diabetes mellitus (04/2021) With associated cellulitis Surgical History Surgical History History of amputation of toe Left 5th toe History of ankle surgery Family History Family History Father Acute myocardial infarction, Onset Age: 62 Heart disease Tobacco use Mother , She in her 70s Brain cancer Lung cancer Carcinoma of colon Grandparent Diabetes mellitus Other Arthritis Hypertension Neuropathy Stomach cancer Social History Social History Social History: Patient is single and lives alone. He states he has never been . Patient works for a [employer]. He has his (non biologic) son part-time. He is a lifelong nonsmoker. He denies history of significant alcohol use or illicit substance use. Code status: DNR/DNI (per patient request) Surrogate decision maker: Sole Farnsworth (niece) Smoking status: Never smoker Second hand tobacco smoke exposure: No Alcohol intake: never Substance use: never Substance use type: does not use Do You Feel Safe in your Home?: Yes Lack of Transportation: No Lack of Food: Never True Current Housing: I Have Housing Concerned About Future Housing: No Difficulty Paying Gas/Electric Bills: No Difficulty Paying for Meds: No Currently Unemployed: No Education: High School Diploma/GED Difficulty w/ Childcare or Family Care: No Living arrangements: alone Additional living arrangements comments: Son lives with him [employer] Occupation/Education: occupation Additional occupation/education comments: [employer] Gender identity (if verbalized by the patient): Male Spiritual care concerns: No Meds Home Medications and Allergies Home Medications Medication Instructions Recorded Confirmed Type losartan 50 mg-hydrochlorothiazide 1 tablet PO DAILY #90 tabs 06/13/24 08/08/24 Rx 12.5 mg tablet insulin human U-100 NPH-regulr 15 unit subcut BID 08/08/24 08/08/24 History 70-30 mix 100 unit/mL subcutaneous susp (Novolin 70/30 U-100 Insulin) metformin 500 mg tablet,extended 500 mg PO BID 08/08/24 08/08/24 History release 24 hr semaglutide 0.25 mg or 0.5 mg (2 0.25 mg subcut WEEKLY 08/08/24 08/08/24 History mg/3 mL) subcutaneous pen injector (Ozempic) Allergies Allergy/AdvReac Type Severity Reaction Status Date / Time No Known Allergies Allergy Verified 08/08/24 19:10 Vital Signs Vital Signs - 24 hr 08/08/24 17:59 08/08/24 18:01 08/08/24 19:03 Temperature 36.6 C 36.6 C Pulse Rate 109 H 98 98 Respiratory Rate 16 16 16 Blood Pressure 128/87 141/90 H 156/96 H Pulse Oximetry 100 100 98 Oxygen Delivery Room Air 08/08/24 21:23 08/08/24 21:47 08/08/24 22:35 Temperature 36.3 C L Pulse Rate 105 H 102 H 106 H Respiratory Rate 15 15 20 Blood Pressure 168/101 H 150/88 H 143/96 H Pulse Oximetry 100 100 100 Oxygen Delivery 08/08/24 22:40 08/09/24 06:00 08/09/24 12:00 Temperature 37.1 C Pulse Rate 103 H 109 H Respiratory Rate 20 16 Blood Pressure 152/89 H 130/90 Pulse Oximetry 100 100 Oxygen Delivery Room Air 08/09/24 14:57 Temperature 37.3 C Pulse Rate 104 H Respiratory Rate 18 Blood Pressure 134/92 H Pulse Oximetry 97 Oxygen Delivery Exam Const: General: comfortable, no acute distress, alert and awake HENMT: Head: normocephalic and atraumatic Mouth: Yes Normal oral and palatal mucosa present Eyes: Conjunctivae: conjunctivae normal Pupils: Equal, round and reactive pupils present EOM: EOMs intact bilaterally Neck: Neck: normal visual inspection, no lymphadenopathy and nontender Resp: Effort & Inspection: normal respiratory effort Auscultation: clear to auscultation bilaterally Cardio: Rate: regular rate Rhythm: regular rhythm Heart sounds: no gallops, no murmurs and no rubs GI: Inspection: non-distended GI Palp: Yes Soft to palpation, No Tenderness to palpation present (GI), No Hepatomegaly present and No Splenomegaly present Skin: Lesions: no lesions Rashes: no rashes Neuro: General: no focal motor deficits and CN's II-XI intact bilaterally Cranial nerves: Yes Equal, round and reactive pupils present, Yes Bilaterally intact EOM present, Yes facial symmetry and Yes Midline tongue present Speech: normal speech Motor exam (neuro): 5/5 motor strength present throughout and Motor abnormalities not present Extrem: General: no clubbing, cyanosis or edema and edema Right lower extremity: ankle (Medial malleolus normal, slightly tender. Lateral malleolus more healed) Details: tenderness Location: of the lateral malleolus (Granulation tissue but some open space between this and rest of the wound.), of the medial malleolus (No skin changes, no swelling, no erythema.) and other (Blood-tinged serous drainage from lateral malleolus, no purulent fluid) Psych: Affect: normal affect Thought process: Normal thought process present Insight: Good insight present (Psych) Results Labs 08/09/24 08:51 08/09/24 08:52 Labs: Abnormal lab results 08/08/24 08/08/24 08/09/24 Range/Units 17:29 21:39 07:56 WBC 10.8 H (4.5-10.0) K/mm3 RBC (4.6-6.20) M/mm3 Hgb 12.7 L (14.0-18.0) g/dL Hct 38.7 L (42.0-52.0) % Plt Count 450 H (150-375) k/mm3 Immature Gran % (Auto) 0.7 H (0-0.5) % Neut % (Auto) 75.8 H (45.5-73.1) % Lymph % (Auto) 14.1 L (18.3-44.2) % Alpine # (Auto) 0.8 H (0.1-0.6) K/mm3 Abs Immat Gran (auto) 0.07 H (0.00-0.031) K/mm3 Absolute Neuts (auto) 8.2 H (1.3-6.7) K/mm3 ESR 46 H (0-20) mm/hr Anion Gap 14 H (4-12) mmol/L BUN 38 H D (9-20) mg/dL Creatinine 2.00 H (0.7-1.3) mg/dL Estimated GFR 36 L (59 - ) Glucose 216 H (65-110) mg/dL POC Capillary Glucose 156 H 187 H (65-105) mg/dl Hemoglobin A1c 8.9 H (<5.7) % C-Reactive Protein 20.0 H (<1.0) mg/dL Total Protein 9.0 H (6.3-8.2) g/dL Random Vancomycin (10-20) ug/mL 08/09/24 08/09/24 08/09/24 Range/Units 08:51 08:52 11:48 WBC 10.1 H (4.5-10.0) K/mm3 RBC 4.31 L (4.6-6.20) M/mm3 Hgb 12.0 L (14.0-18.0) g/dL Hct 36.2 L (42.0-52.0) % Plt Count 406 H (150-375) k/mm3 Immature Gran % (Auto) (0-0.5) % Neut % (Auto) (45.5-73.1) % Lymph % (Auto) (18.3-44.2) % Alpine # (Auto) (0.1-0.6) K/mm3 Abs Immat Gran (auto) (0.00-0.031) K/mm3 Absolute Neuts (auto) (1.3-6.7) K/mm3 ESR (0-20) mm/hr Anion Gap (4-12) mmol/L BUN 27 H D (9-20) mg/dL Creatinine 1.40 H (0.7-1.3) mg/dL Estimated GFR 54 L 58 L (59 - ) Glucose 188 H (65-110) mg/dL POC Capillary Glucose 194 H (65-105) mg/dl Hemoglobin A1c (<5.7) % C-Reactive Protein (<1.0) mg/dL Total Protein (6.3-8.2) g/dL Random Vancomycin 9.7 L (10-20) ug/mL Diabetes panel 08/08/24 08/09/24 08/09/24 Range/Units 17:29 08:51 08:52 Sodium 139 137 (137-145) mmol/L Potassium 3.6 3.7 (3.4-5.0) mmol/L Chloride 99 103 (98-107) mmol/L Carbon Dioxide 26 27 (22-30) mmol/L BUN 38 H D 27 H D (9-20) mg/dL Creatinine 2.00 H 1.40 H 1.30 (0.7-1.3) mg/dL Glucose 216 H 188 H (65-110) mg/dL Hemoglobin A1c 8.9 H (<5.7) % Calcium 8.9 8.6 (8.4-10.2) mg/dL AST 18 (17-59) U/L ALT 10 (6-50) U/L Alkaline Phosphatase 85 (38-126) U/L Total Protein 9.0 H (6.3-8.2) g/dL Albumin 4.0 (3.5-5.1) g/dL Calcium panel 08/08/24 08/09/24 Range/Units 17:29 08:51 Calcium 8.9 8.6 (8.4-10.2) mg/dL Albumin 4.0 (3.5-5.1) g/dL Pituitary panel 08/08/24 08/09/24 08/09/24 Range/Units 17:29 08:51 08:52 Sodium 139 137 (137-145) mmol/L Potassium 3.6 3.7 (3.4-5.0) mmol/L Chloride 99 103 (98-107) mmol/L Carbon Dioxide 26 27 (22-30) mmol/L BUN 38 H D 27 H D (9-20) mg/dL Creatinine 2.00 H 1.40 H 1.30 (0.7-1.3) mg/dL Glucose 216 H 188 H (65-110) mg/dL Calcium 8.9 8.6 (8.4-10.2) mg/dL Adrenal panel 08/08/24 08/09/24 08/09/24 Range/Units 17:29 08:51 08:52 Sodium 139 137 (137-145) mmol/L Potassium 3.6 3.7 (3.4-5.0) mmol/L Chloride 99 103 (98-107) mmol/L Carbon Dioxide 26 27 (22-30) mmol/L BUN 38 H D 27 H D (9-20) mg/dL Creatinine 2.00 H 1.40 H 1.30 (0.7-1.3) mg/dL Glucose 216 H 188 H (65-110) mg/dL Calcium 8.9 8.6 (8.4-10.2) mg/dL Total Bilirubin 1.0 (0.2-1.3) mg/dL AST 18 (17-59) U/L ALT 10 (6-50) U/L Alkaline Phosphatase 85 (38-126) U/L Total Protein 9.0 H (6.3-8.2) g/dL Albumin 4.0 (3.5-5.1) g/dL All other labs normal. Labs noted. White blood cell count slightly elevated. CRP 20. Creatinine improved. Imaging Additional studies: Plain films right ankle and CT scan right ankle-these films reviewed independently. I also carefully reviewed the CT scan of the ankle with radiologist Dr. Lan. The medial malleolus looks normal. There was no tissue swelling, no evidence of infection or evidence of fracture on around the medial malleolus. The lateral malleolus does not show acute changes but does show that the lateral edge of the calcaneus just proximal to the joint surface has evidence persistent infection and osteomyelitis. This is the area where there is some drainage of blood-tinged serous fluid. It is also slow to heal but has been healing. He has no tenderness or pain in this area.
--- NOTE | 2024-08-10 06:36 | P.DS_ITS ---
DS: Admitting Diagnosis Discharge Date 08/09/24 Admitting Diagnosis rt ankle/foot pain DS: Discharge Diagnosis Discharge Diagnosis (1) Diabetic foot infection: Code(s): E11.628 - Type 2 diabetes mellitus with other skin complications; L08.9 - Local infection of the skin and subcutaneous tissue, unspecified Status: Acute Assessment and Plan: (2) Acute kidney injury: Code(s): N17.9 - Acute kidney failure, unspecified Status: Acute Assessment and Plan: (3) Insulin dependent diabetes mellitus: Status: Chronic Assessment and Plan: (4) FEMI (obstructive sleep apnea): Code(s): G47.33 - Obstructive sleep apnea (adult) (pediatric) Status: Acute Assessment and Plan: (5) HTN (hypertension): Code(s): I10 - Essential (primary) hypertension Status: Acute Assessment and Plan: (6) GERD (gastroesophageal reflux disease): Qualifiers: Esophagitis presence: esophagitis presence not specified Qualified Code(s): K21.9 - Gastro-esophageal reflux disease without esophagitis Code(s): K21.9 - Gastro-esophageal reflux disease without esophagitis Status: Acute (7) Nausea & vomiting: Code(s): R11.2 - Nausea with vomiting, unspecified Status: Acute Assessment and Plan: (8) Cellulitis of foot, left: Code(s): L03.116 - Cellulitis of left lower limb Status: Acute Assessment and Plan: (9) Nausea: Code(s): R11.0 - Nausea Status: Acute DS: Summary Hospital Course Hospital Course: This is a 48-year-old male with past medical history significant for obesity, insulin-dependent diabetes mellitus, diabetic peripheral neuropathy, bilateral diabetic foot, patient comes due to drainage of right foot to wound, nausea, vomiting, fevers, pain. Patient has been admitted for further evaluation management and treatment. He was started on Flagyl, vancomycin and cefepime. Mrsa swab was done-negative Surgery was contacted: Pain was in the medial malleolus which is still somewhat tender. There is no evidence of infection or fracture in this area. I am not sure why he was having pain here. This does not appear to be associated with his lateral malleolus which still has an open wound associated with it. I spoke with Evelia, wound nurse specialist, and we will continue silver gel dressings to his entire open wound. He also was fitted with a cam boot for his right foot. He has tried walking in this and is able to walk with minimal discomfort. I do not think any other acute issues are going on. I talked with his hospitalist and the patient would like to go home today. That is fine with general surgery that he go home and follow up with us on this week as scheduled, 08/15/2024. . Pt did not want to stay in the hospital and was discharged with instruction to f/u with surgery, PCP for labs recheck and wear cam boot. Status at Discharge Functional status at discharge: independent ambulation Overall status at discharge: patient is progressing back to baseline Time Spent with Patient Time attestation: Total time spent providing and/or coordinating discharge services: Time spent: Greater than 30 minutes Exam Const: General: comfortable, no acute distress, well developed, alert, awake and obese Nutritional Appearance: obese Orientation/consciousness: patient oriented x3 HENMT: Head: normal to inspection, normocephalic and atraumatic Ears: hearing grossly normal bilaterally Face/Nose/Sinus: normal facial exam Face and sinus: normal facial exam Eyes: General: appearance normal, both eyes and all related structures Pupils: Equal, round and reactive pupils present EOM: EOMs intact bilaterally Neck: Neck: full ROM, no lymphadenopathy and no JVD Thyroid: thyroid normal Lymphatic: no lymphadenopathy noted Resp: Effort & Inspection: normal respiratory effort and able to speak in complete sentences Auscultation: clear to auscultation bilaterally Cardio: Jugular venous distension: no JVD Rate: regular rate Rhythm: regular rhythm Heart sounds: S1 normal heart sound present and S2 normal heart sound present : General: Yes deferred Skin: General skin exam: wounds noted Rashes: no rashes Wounds: wounds noted Other: dressing to Neuro: General: patient oriented x3 and CN's II-XI intact bilaterally Cranial nerves: Yes CN's II-XII intact bilaterally and Yes Equal, round and reactive pupils present Cognition (Neuro): normal cognition Speech: normal speech Gait exam (Neuro): Normal gait present Motor exam (neuro): 5/5 motor strength present throughout Extrem: General: normal to inspection, full ROM, no joint enlargement and no p edal edema DS: Data Data Completed and Pending Labs on day of discharge: Labs from last 24 hours 11/05/2508/09/24 08/09/24 13:26 11:48 08:52 WBC RBC Hgb Hct MCV MCH MCHC RDW Plt Count MPV Sodium Potassium Chloride Carbon Dioxide Anion Gap BUN Creatinine 1.30 Estim Creat Clear Calc 67 Estimated GFR 58 L Glucose POC Capillary Glucose 194 H Calcium Nasal MRSA (PCR) Not detected Random Vancomycin 9.7 L 08/09/24 08/09/24 08:51 07:56 WBC 10.1 H RBC 4.31 L Hgb 12.0 L Hct 36.2 L MCV 84.0 MCH 27.8 MCHC 33.1 RDW 13.4 Plt Count 406 H MPV 8.8 Sodium 137 Potassium 3.7 Chloride 103 Carbon Dioxide 27 Anion Gap 7 BUN 27 H D Creatinine 1.40 H Estim Creat Clear Calc 62 Estimated GFR 54 L Glucose 188 H POC Capillary Glucose 187 H Calcium 8.6 Nasal MRSA (PCR) Random Vancomycin Preliminary micro results at discharge 08/08/24 18:41 Blood Culture - Preliminary Blood Gram positive cocci cluster is 08/08/24 18:46 Anaerobic Culture - Preliminary Foot Right 08/08/24 18:46 Blood Culture - Preliminary Blood Discharge Plan Discharge Discharging Clinician: Carla Berg Patient Disposition: Home, Self-Care Activity: may shower Diet: diabetic Wound Care Instructions: remove dressing to shower and change dressing daily Discharge Instructions: * Continue silver gel dressings to right foot wounds as before. Cover with gauze and wrap with Chris wrap. * Wear Cam boot to ambulate until no further pain from medial malleolus. * See Dr. Jauregui in the office on 08/15/2024 as scheduled. * Keep right foot elevated whenever sitting. * Call or go to the emergency room for severe pain, temperature over 101?, bleeding, severe swelling, other significant change in condition. Patient Instructions: Antibiotic Form Stand Alone Forms: General Discharge Information Follow-up/Referrals: Johan Jauregui MD [Physician] - 08/15/24 (Keep scheduled appointment unless Dr. Castaneda office calls and changes this.) Discharge Medications: Continued losartan-hydrochlorothiazide 50-12.5 mg tablet 1 tablet PO DAILY Qty: 90 0RF Novolin 70/30 U-100 Insulin 100 unit/mL (70-30) suspension 15 unit SUBCUT BID metformin 500 mg tablet extended release 24 hr 500 mg PO BID Ozempic 0.25 mg or 0.5 mg (2 mg/3 mL) pen injector 0.25 mg SUBCUT WEEKLY Rx Instructions: MONDAY Date of admission: 08/08/24 21:20 Primary Care Provider: UNKNOWN,DOCTOR Admitting Provider: Tremayne Hernandez V. Attending physician on admission: Tremayne Hernandez V. Condition: Improved Quality VTE Prophylaxis VTE prophylaxis: pharmacologic ordered Hospitalist MIPS Heart Failure (Exclusion) Patient has history of Heart Transplant or Left Ventricular Assistive Device?: No IF YES, STOP HERE Heart Failure (Qualifier) Patient has current or prior documentation of LVEF less than or equal to 40%, or mod/servere depressed LVSF?: No IF NO, STOP HERE
--- NOTE | 2024-08-11 06:56 | PM.EVENT ---
Event Note Event Note Event Note: Lab called with positive blood culture. One- gram positive-clusters, one staph aureus- pt is following with surgery- has an ruby coming up. while he was admitted, MRSA swab was completed and it was negative. He received IV doses of antibiotics, afebrile, WBC were slightly elevated- but he was cleared to be discharged per surgery. Will call pt to order repeat blood cultures and notify surgery of .
== END 2024-08-09 16:50 | disposition home or self-care (01) ==
LOC: ANHED 21:37 → ANH2MED 21:52
PROVIDERS: Nurse Practitioner; Physician Assistant; Admitting Provider Internal Medicine; Emergency Provider Physician Assistant; Visit Provider Internal Medicine
DX: E11.628 Type 2 diabetes mellitus with other skin complications (principal); L08.9 Local infection of the skin and subcutaneous tissue, unspecified; L03.116 Cellulitis of left lower limb; Z89.422 Acquired absence of other left toe(s); S91.301D Unspecified open wound, right foot, subsequent encounter; M25.571 Pain in right ankle and joints of right foot; E11.42 Type 2 diabetes mellitus with diabetic polyneuropathy; E11.69 Type 2 diabetes mellitus with other specified complication; N52.1 Erectile dysfunction due to diseases classified elsewhere; N17.9 Acute kidney failure, unspecified; R11.2 Nausea with vomiting, unspecified; I10 Essential (primary) hypertension; G47.33 Obstructive sleep apnea (adult) (pediatric); H40.9 Unspecified glaucoma; E66.9 Obesity, unspecified; Z68.29 Body mass index [BMI] 29.0-29.9, adult; Z66 Do not resuscitate; Z98.890 Other specified postprocedural states; Z79.4 Long term (current) use of insulin; Z79.84 Long term (current) use of oral hypoglycemic drugs; Z79.85 Long-term (current) use of injectable non-insulin antidiabetic drugs; Z79.899 Other long term (current) drug therapy
CPT/HCPCS: 36415; 73610; 73630; 73701; 80048; 80053; 80202; 82565; 82948; 83036; 83605; 85025; 85027; 85652; 86140; 87040; 87070; 87075; 87181; 87205; 87641; 96361; 96365; 96366; 96367; 96372; 96375; 96376; 99212; 99285; A9270; G0378; G0463; J0692; J1650; J1836; J2405; J3370; J7030; L2116; Q9967

== ENCOUNTER 2024-08-20 12:16 | Inpatient (IN) | payer MEDICAID, SELFPAY ==
--- NOTE | ~2024-08-20 | MR_ITS ---
EXAMINATION: MR ankle RT wo/w con, MR foot RT wo/w con DATE: 08/21/2024 08:39 INDICATION: Foot and ankle pain with wound and abscess TECHNIQUE: 1. Magnetic resonance imaging (MRI) of the right ankle was performed without and with 20 mL Multihanc e intravenous contrast. Sequences included axial, sagittal and coronal PD-weighted FSE and PD-weighte d FS FSE,. Sagittal fluid sensitive FSE STIR, axial T1-weighted FS FSE and postcontrast axial and cor onal T2-weighted FS FSE. 2. MRI of the right foot excluding the tuft of the first distal phalanx performed without and with th e mL Multihance intravenous contrast utilizing the same contrast bolus. Sequences included axial, sag ittal and coronal T1-weighted FSE, axial and coronal T2-weighted FS FSE, sagittal fluid sensitive FSE STIR, axial T1-weighted FS FSE and postcontrast axial, sagittal and coronal T1-weighted FS FSE. COMPARISON: CT dated 08/08/2024 FINDINGS: Bones/other: There has been prior amputation of the second toe. The head of the second metatarsal is absent which could be related to prior osteomyelitis or osteotomy. There is mild marrow edema, enhancement and mane tral region of decreased T1 signal extending proximally into the distal second metatarsal which raise s concern for osteomyelitis. There are old healed fractures at the necks of the second and third metatarsals. There is chronic carmita rick and medial subluxation at the first metatarsophalangeal joint. There is severe secondary osteoart hritis at the first metatarsophalangeal joint with subarticular edema-like and cystlike changes along the articular surface of the head of the first metatarsal, base of the first proximal phalanx and at the tibial and fibular sesamoids. Additional mild polyarticular osteoarthritis throughout the mid an d forefoot. There is prominent enhancing granulation tissue along the margins of a centrally low signal intensity sinus tract extending from the ulceration at the dorsolateral aspect of the hindfoot deep to the lev el of the sinus Tarsi and communicating with the subtalar joint. There is prominent enhancing synovit is at the periphery of a moderate-sized ankle and subtalar joint effusions suspicious for septic arth ritis. There is a prominent erosion with cortical destruction at the dorsal/lateral aspect of the ant erior process of the calcaneus with marrow edema, enhancement and decreased T1 signal involving a lar ge portion of the anterior process and portion of the body of the calcaneus consistent with osteomyel itis. There is additional cortical erosion with similar underlying marrow signal change at the latera l process of the talus. There is also a focus of suspected cortical erosion and underlying osteomyeli tis at the posterior medial aspect of the talus underlying the region of the groove of the flexor edwar lux longus tendon. Muscles, tendons, ligaments and plantar fascia: There is swelling and prominent increased signal involving the extensor pollicis brevis and extensor digitorum brevis musculature at the dorsum of the mid and hindfoot consistent with myositis. There ap pears be at least partial if not complete tears of the extensor digitorum longus tendon slips extendi ng to the fifth and possibly fourth toes at the level of the midfoot immediately underlying an additi onal ulceration along the skin surface. Moderate tendinopathy and full-thickness tear of the anterior tibial tendon with the frayed distal tear margin located near the level of the talonavicular joint a nd with the ragged proximal tear margin retracted approximately 2.5 cm approximately to the level of the tibiotalar joint line. There is complete tear and proximal retraction of the extensor pollicis longus tendon with the proxim al retracted tear margin positioned at the level of the tibiotalar joint line. There is prominent enh ancing, likely septic tenosynovitis around the proximal stomach proximal tear margin and extending al shan the more distal empty tendon sheath. Mild enhancing tenosynovitis extending along the otherwise normal tibialis posterior and flexor digitorum longus tendons. Achilles tendon is normal. There is mi ld tenosynovitis along the normal peroneus longus and brevis tendons. There is loss of the normally more clearly defined striated pattern to the deep deltoid ligament doreen g with a small heterotopic ossicle along the ligament consistent with scarring related to chronic spr ain. The superficial deltoid ligament and spring ligament complex are normal. The anterior and hand clerical verifier ior inferior tibiofibular ligaments are normal. The anterior talofibular, calcaneofibular and posteri or talofibular ligaments are normal. The Lisfranc ligament complex appears normal. Thickening and mild increased signal of the proximal plantar aponeurosis consistent with mild to mode rate enthesopathy without surrounding edema or enhancement to suggest acute plantar fasciitis. IMPRESSION: 1. Likely septic arthritis at the ankle and subtalar joints with draining sinus tract draining from t he anterior subtalar joint/sinus Tarsi to the dorsolateral hindfoot. 2. Associated osteomyelitis most prominent at the anterior process of the calcaneus also involving po rtions of the talus as detailed above. 3. Overlying myositis involving the intrinsic musculature at the dorsal midfoot with suggestion of te ndinopathy and likely at least partial tears of the more superficial extensor digitorum longus tendon s to the fifth and possibly fourth toes. 4. Complete tear and proximal retraction of the extensor hallucis longus and anterior tibial tendons, the former with likely associated septic tenosynovitis. 5. Chronic amputation of the second toe with suspicion for osteomyelitis at the distal diaphysis of t he second metatarsal. 6. Chronic dorsal medial subluxation at the first metatarsophalangeal joint with severe associated os teoarthritis. 7. Old healed fractures at the necks of the third and fourth metatarsals. Reviewed, dictated and finalized at location B. RMATION SECURITY CONSULTANT IMPRESSION: 1. Likely septic arthritis at the ankle and subtalar joints with draining sinus tract draining from the anterior subtalar joint/sinus Tarsi to the dorsolatera l hindfoot. 2. Associated osteomyelitis most prominent at the anterior process of the calca neus also involving portions of the talus as detailed above. 3. Overlying myositis involving the intrinsic musculature at the dorsal midfoot with suggestion of tendinopathy and likely at least partial tears of the more superficial extensor digitorum longus tendons to the fifth and possibly fourth toes. 4. Complete tear and proximal retraction of the extensor hallucis longus and an terior tibial tendons, the former with likely associated septic tenosynovitis. 5. Chronic amputation of the second toe with suspicion for osteomyelitis at the distal diaphysis of the second metatarsal. 6. Chronic dorsal medial subluxation at the first metatarsophalangeal joint wit h severe associated osteoarthritis. 7. Old healed fractures at the necks of the third and fourth metatarsals.
--- NOTE | ~2024-08-20 | XR_ITS ---
XR chest PICC line Ordering provider: Akbar Ladd MD History: 48 years Male with . PICC placement . Comparison: None. FINDINGS: MEDIASTINUM: The cardiac silhouette is not enlarged. Left PICC line is seen with the tip overlying laureano perior vena cava. LUNGS: No infiltrates, effusions or pneumothorax. OTHER: No free air under the diaphragm. IMPRESSION: No acute cardiopulmonary pathology. Reviewed, dictated and finalized at location A. STANT SHIFT SUPERVISOR
[2024-08-20 09:55] VITALS: BMI 32.1
--- NOTE | 2024-08-20 09:56 | ADMGEN ---
This patient, Kain Montejo, was admitted to Medical Room 250-01. Patient/family oriented to hospital policies and general routines including ID bracelet, bed and alarms, visiting hours, pain management, procedures, bathroom and other care routines, personal items, smoking policy, room service/diet, and visiting hours. Information on how to activate the Rapid Response Team has been discussed. Patient/Family are encouraged to report perceived risks to care and to ask questions if they do not understand what they are told or what they should do.
--- NOTE | 2024-08-20 09:57 | PM.CNOR ---
Assessment and Plan Assessment and plan (1) Bacteremia: Code(s): R78.81 - Bacteremia Status: Acute Assessment and Plan: Blood cultures from hospital admission on 08/08 revealed Staph. Wound cultures from 08/08 are positive for Staph and group B strep. No recent IV or oral antibiotics since discharge on 08/09. Recommended repeat blood cultures and wound cultures. Defer antibiotic choice to hospitalist service. (2) Acute right ankle pain: Code(s): M25.571 - Pain in right ankle and joints of right foot Status: Acute Assessment and Plan: Right ankle pain with inability to flex and extend without severe pain. Wound and redness noted over the anterior/lateral aspect of the right ankle. No ability to probe to bone. Mild malodor. Patient will benefit from MRI of the right ankle to evaluate for abscess. IV antibiotics likely needed pending repeat B.C. and wound culture. Will defer antibiotic choice to hospitalist service. 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 Wound appears stable. Hypergranulation noted. Unable to probe to bone. Decreased sensation in the right lower extremity. Doppler pedal pulses. Continue daily dressing changes at this time. Nursing aware that dressing has been changed today. MRI of the foot/ankle recommended. Continue fracture boot with WBAT OR post op shoe. Okay to shower/wash foot. History of Present Illness HPI Consult date: 08/20/24 Chief complaint: Bacteremia Narrative: 48-year-old male known to the Orthopedic Service for a previous left foot 5th ray amputation, excisional debridement of diabetic left foot ulcer x2 including muscle layer by Dr. Ladd in April of 2021. The patient is now suffering from a right foot wound. He was evaluated in the [facility] wound clinic today upon request by the General Surgery team. On June 08 the patient had an amputation of the 2nd toe of the right foot by Dr. Jauregui. He was discharged from the hospital and followed up as an outpatient on June 17, July 04, and July 25 for wound care and post op monitoring. He returned to the emergency room on August 08 with complaints of nausea, vomiting and right ankle pain. He was evaluated by general surgery during this hospitalization. His wound showed improvement over the [address] scan of the right ankle was performed on 08/08 and revealed widespread soft tissue edema without a rim-enhancing fluid collection or gas within the soft tissues. An addendum was performed by Dr. Lan on this CT scan on 08/09 which revealed erosions of the lateral aspect of the anterior calcaneus with adjacent ill-defined incomplete rim of enhancing soft tissue measuring 14 mm, consistent with osteomyelitis and adjacent phlegmon versus early abscess. Blood cultures and wound cultures were obtained during this hospitalization. He was discharged on 08/09 with a follow-up with Dr. Jauregui on 08/15 in the outpatient wound clinic. It was at this time, on 08/15, that Dr. Jauregui requested orthopedic evaluation for chronic wound and right ankle pain with concerns for osteomyelitis. The patient was evaluated in [facility] wound clinic on 08/20 by the orthopedic service. Upon chart review today prior to physical exam, it was noted the blood cultures from his recent hospitalization resulted on 08/11 and were interpreted by the hospitalist service to be staph +. Wound cultures from that hospitalization also reveal Staph and group B strep. Per the patient, he has not had follow-up blood cultures since 08/11 and has not been on IV antibiotics or oral antibiotics since the time of discharge on 08/10. He continues to experience nausea and vomiting. He is unable to keep fluids down. He generally feels unwell and has chills and night sweats. His blood glucose levels have been well controlled. He continues to suffer from right ankle pain and inability to flex and extend the right ankle fully without pain. The hospitalist service and nursing fitting supervisor were consulted to the wound clinic by the orthopedic service for possible direct admission which was approved. Orthopedic consult for right foot/ankle pain and wound with possible OM based on previous CT on 08/09. Review of Systems Review of Systems: All systems reviewed & are unremarkable except as noted in HPI and below PMFSH Past Medical History Medical History Bacteremia Diabetic peripheral neuropathy Erectile dysfunction associated with type 2 diabetes mellitus Glaucoma Obesity (BMI 30.0-34.9) Osteomyelitis of toe of left foot (2020) Left 5th toe Type 2 diabetes mellitus (~04/2021) Officially diagnosed in 2020 but patient already had a foot wound and osteomyelitis of the left toe at that time Ulcer of left fifth toe due to diabetes mellitus (04/2021) With associated cellulitis Surgical History Surgical History History of amputation of toe Left 5th toe History of ankle surgery Family History Family History Father Acute myocardial infarction, Onset Age: 62 Heart disease Tobacco use Mother , She in her 70s Brain cancer Lung cancer Carcinoma of colon Grandparent Diabetes mellitus Other Arthritis Hypertension Neuropathy Stomach cancer Social History Social History Social History: Patient is single and lives alone. He states he has never been . Patient works for a [employer]. He has his (non biologic) son part-time. He is a lifelong nonsmoker. He denies history of significant alcohol use or illicit substance use. Code status: DNR/DNI (per patient request) Surrogate decision maker: Sole Farnsworth (niece) Smoking status: Never smoker Second hand tobacco smoke exposure: No Alcohol intake: never Substance use: never Substance use type: does not use Do You Feel Safe in your Home?: Yes Lack of Transportation: No Lack of Food: Never True Current Housing: I Have Housing Concerned About Future Housing: No Difficulty Paying Gas/Electric Bills: No Difficulty Paying for Meds: No Currently Unemployed: No Education: High School Diploma/GED Difficulty w/ Childcare or Family Care: No Living arrangements: alone Additional living arrangements comments: 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 Occupation/Education: 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 Gender identity (if verbalized by the patient): Male Spiritual care concerns: No Meds Home Medications and Allergies Home Medications Medication Instructions Recorded Confirmed Type losartan 50 mg-hydrochlorothiazide 1 tablet PO DAILY #90 tabs 06/13/24 08/20/24 Rx 12.5 mg tablet insulin human U-100 NPH-regulr 15 unit subcut BID 08/08/24 08/20/24 History 70-30 mix 100 unit/mL subcutaneous susp (Novolin 70/30 U-100 Insulin) metformin 500 mg tablet,extended 500 mg PO BID 08/08/24 08/20/24 History release 24 hr semaglutide 0.25 mg or 0.5 mg (2 0.25 mg subcut WEEKLY 08/08/24 08/20/24 History mg/3 mL) subcutaneous pen injector (Ozempic) Allergies Allergy/AdvReac Type Severity Reaction Status Date / Time No Known Allergies Allergy Verified 08/08/24 19:10 Exam Const: General: alert, awake, ill appearing (pale ), tired appearing and well nourished Orientation/consciousness: patient oriented x3 Limitations: no limitations HENMT: Head: normal to inspection Ears: hearing grossly normal bilaterally Face/Nose/Sinus: Normal external nose present Face and sinus: normal facial exam Neck: Neck: normal visual inspection Extrem: Right lower extremity: ankle Details: tenderness Location: of the lateral malleolus and of the medial malleolus, swelling Details: laterally and posteriorly, abnormal ROM Details: pain with active ROM Details: with plantar flexion and with dorsiflexion and pain with passive ROM Details: with plantar flexion and with dorsiflexion, warmth and other (redness, laterally ); no ecchymosis and foot ( 2nd toe amputation) Details: abnormal to inspection, vascular exam Details: dorsalis pedis pulse present ( With Doppler), posterior tibial pulse present ( with Doppler) and abnormal capillary refill Location: of all toes, motor-sensory exam Details: light-touch abnormal and other ( see wound assessment below); abnormal capillary refill Other: wound on the dorsal lateral aspect of the right foot measures 4 x 8.5 x 1.5 cm, 100% red/ pink wound bed with hyper granulated tissue noted. Additional wound at the side of the 2nd toe amputation measures 3.5 x 1 x 0.3 cm, 100% red/ pink wound bed with hyper granulated tissue. Unable to probe to bone at either site site of wound. Mild malodorous. Psych: Appearance: well kempt Mental Status: mental status grossly normal Results Labs 08/20/24 11:02 08/20/24 11:02 Labs: All other labs normal.
[2024-08-20 11:26] VITALS: BP 133/79; PULSE 108; RESP 16; TEMP 37.1; O2SAT 100
[2024-08-20 11:38] LABS: Basophils Percent Auto 0.3 % (0.2-1.2); Eosinophils Percent Auto 0.2 % (0-4.4); Hematocrit 37.5 % (42.0-52.0); Hemoglobin 12.1 g/dL (14.0-18.0); Immature Granulocyte Absolute 0.06 K/mm3 (0.00-0.031); Immature Granulocyte Percent A 0.5 % (0-0.5); Lymphocytes Absolute Auto 1.18 K/mm3 (0.9-3.2); Mean Corpuscular HGB Conc 32.3 g/dl (32-36); Mean Corpuscular Hemoglobin 26.9 pg (26-34); Mean Corpuscular Volume 83.3 fl (80-100); Mean Platelet Volume 9.1 fl (7.4-10.4); Neutrophils Absolute Auto 9.6 K/mm3 (1.3-6.7); Platelet Count Result 481 k/mm3 (150-375); Red Cell Distribution Width 13.7 % (11.5-14.5); White Blood Count 11.8 K/mm3 (4.5-10.0)
[2024-08-20 11:52] LABS: Anion Gap 11 mmol/L (4-12); Blood Urea Nitrogen 26 mg/dL (9-20); Calcium 9.5 mg/dL (8.4-10.2); Carbon Dioxide 26 mmol/L (22-30); Chloride 100 mmol/L (98-107); Estimated CRCL calculation 67 ml/min; Estimated Glomerular Filt Rate 50; Glucose 204 mg/dL (65-110); Potassium 4.1 mmol/L (3.4-5.0); Sodium 137 mmol/L (137-145)
[2024-08-20 11:58] LABS: Glucose Point of Care 198 mg/dl (65-105)
[2024-08-20 12:00] LABS: Erythrocyte Sedimentation Rate 61 mm/hr (0-20)
--- NOTE | 2024-08-20 12:22 | P.HP_ITS ---
H&P: HPI History of Present Illness Date/Time: 08/20/24 12:22 Chief Complaint: foot pain Narrative: This is a 48-year-old male who recently underwent left 5th ray amputation in 2020, recently admitted for right foot infection underwent right TMA of 2nd toe in June 08, 2024. He has been followed up by Wound Care since discharge. He return to ER on August 08 with right ankle pain. CT of the foot at that time showed soft tissue edema without her remain hand Del Angel fluid collection or gas within the soft tissues blood culture and wound culture were obtained which came back positive for MSSA. He has not followed up since the positive blood culture and had not been on antibiotics. He was in the [facility] today where he presented for his routine wound care. Orthopedics evaluated the patien t and noted wound getting worse as well as findings of positive blood culture recently which was not treated. He has also been feeling unwell and had some chills and night sweats. He also complains of right ankle pain that has been ongoing. He is admitted in this setting for further evaluation and treatment. Review of Systems Review of Systems: - CONSTITUTIONAL: Denies weight loss, fe inna and chills. - HEENT: Denies changes in vision and he aring - RESPIRATORY: Denies SOB and cough. - CV: Denies palpitations and CP. - GI: Denies abdominal pain, nausea, vom iting and diarrhea. - : Denies dysuria and urinary frequen cy. - MSK: Denies myalgia and joint pain. S ee HPI - SKIN: Denies rash and pruritus. - NEUROLOGICAL: Denies headache and sync ope. - PSYCHIATRIC: Denies recent changes in mood. Denies anxiety and depression. [facility] Past Medical History Medical History Bacteremia Diabetic peripheral neuropathy Erectile dysfunction associated with type 2 diabetes mellitus Glaucoma Obesity (BMI 30.0-34.9) Osteomyelitis of toe of left foot (2020) Left 5th toe Type 2 diabetes mellitus (~04/2021) Officially diagnosed in 2020 but patient already had a foot wound and osteomyelitis of the left toe at that time Ulcer of left fifth toe due to diabetes mellitus (04/2021) With associated cellulitis Surgical History Surgical History History of amputation of toe Left 5th toe History of ankle surgery Family History Family History Father Acute myocardial infarction, Onset Age: 62 Heart disease Tobacco use Mother , She in her 70s Brain cancer Lung cancer Carcinoma of colon Grandparent Diabetes mellitus Other Arthritis Hypertension Neuropathy Stomach cancer Social History Social History Social History: Patient is single and lives alone. He states he has never been . Patient works for a [employer]. He has his (non biologic) son part-time. He is a lifelong nonsmoker. He denies history of significant alcohol use or illicit substance use. Code status: DNR/DNI (per patient request) Surrogate decision maker: Sole Javad (niece) Smoking status: Never smoker Second hand tobacco smoke exposure: No Alcohol intake: never Substance use: never Substance use type: does not use Do You Feel Safe in your Home?: Yes Lack of Transportation: No Lack of Food: Never True Current Housing: I Have Housing Concerned About Future Housing: No Difficulty Paying Gas/Electric Bills: No Difficulty Paying for Meds: No Currently Unemployed: No Education: High School Diploma/GED Difficulty w/ Childcare or Family Care: No Living arrangements: alone Additional living arrangements comments: 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 Gender identity (if verbalized by the patient): Male Spiritual care concerns: No Meds Home Medications and Allergies Home Medications Medication Instructions Recorded Confirmed Type losartan 50 mg-hydrochlorothiazide 1 tablet PO DAILY #90 tabs 06/13/24 08/20/24 Rx 12.5 mg tablet insulin human U-100 NPH-regulr 15 unit subcut BID 08/08/24 08/20/24 History 70-30 mix 100 unit/mL subcutaneous susp (Novolin 70/30 U-100 Insulin) metformin 500 mg tablet,extended 500 mg PO BID 08/08/24 08/20/24 History release 24 hr semaglutide 0.25 mg or 0.5 mg (2 0.25 mg subcut WEEKLY 08/08/24 08/20/24 History mg/3 mL) subcutaneous pen injector (Ozempic) Allergies Allergy/AdvReac Type Severity Reaction Status Date / Time No Known Allergies Allergy Verified 08/08/24 19:10 Vital Signs Vital Signs - 24 hr 08/20/24 11:26 Temperature 98.8 F Pulse Rate 108 H Respiratory Rate 16 Blood Pressure 133/79 Pulse Oximetry 100 Exam Narrative: GENERAL: Well-appearing, well-nourished, and in no acute distress. HEAD: Normocephalic, atraumatic. EYES: EOMI. PERRLA EXTREMITIES: Normal range of motion. Right 2nd toe amputation. Normal PT pulse dopplerable. open wound present to the dorsal surface of the foot. with reddish granulation tissue. some foul smell. SKIN: Warm, dry, no rash. NEURO: No focal deficits. Alert and oriented x3. PSYCH: Normal mood and affect H&P: Results Labs Labs: Short CBC 08/20/24 Range/Units 11:02 WBC 11.8 H (4.5-10.0) K/mm3 Hgb 12.1 L (14.0-18.0) g/dL Hct 37.5 L (42.0-52.0) % Plt Count 481 H (150-375) k/mm3 [facility] 08/20/24 11:02 Sodium 137 Potassium 4.1 Chloride 100 Carbon Dioxide 26 BUN 26 H Creatinine 1.50 H Glucose 204 H Calcium 9.5 Assessment and Plan Assessment and plan (1) Bacteremia: Code(s): R78.81 - Bacteremia Status: Acute (2) Acute right ankle pain: Code(s): M25.571 - Pain in right ankle and joints of right foot Status: Acute (3) Diabetes mellitus: Qualifiers: Diabetes mellitus complication detail: with other skin complication Diabetes mellitus complication status: with skin complications Diabetes mellitu s longterm insulin 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 Diabetes mellitus type: type 2 Qualified Code(s): E11.628 - Type 2 diabetes mellitus with other skin complications; Z79.4 - technician terminal and repeater (current) use of insulin Code(s): E11.9 - Type 2 diabetes mellitus without complications Status: Acute (4) Insulin dependent diabetes mellitus: Status: Chronic (5) FEMI (obstructive sleep apnea): Code(s): G47.33 - Obstructive sleep apnea (adult) (pediatric) Status: Acute (6) HTN (hypertension): Code(s): I10 - Essential (primary) hypertension Status: Acute Plan This is a 48-year-old male who recently underwent left 5th ray amputation in 2020, recently admitted for right foot infection underwent right TMA of 2nd toe in June 08, 2024. He has been followed up by Wound Care since discharge. He return to ER on August 08 with right ankle pain. CT of the foot at that time showed soft tissue edema without her remain hand Del Angel fluid collection or gas within the soft tissues blood culture and wound culture were obtained which came back positive for MSSA. He has not followed up since the positive blood culture and had not been on antibiotics. He was in the Wound Care Clinic today where he presented for his routine wound care. Orthopedics evaluated the patient and noted wound getting worse as well as findings of positive blood culture recently which was not treated. He has also been feeling unwell and had some chills and night sweats. He also complains of right ankle pain that has been ongoing. He is admitted in this setting for further evaluation and treatment. MSSA bacteremia recent positive on 08/08/2024. Repeat blood culture will be obtained. Will start on Ancef. Wound culture was also positive for staph and group B Streptococcus. Right ankle pain will get MRI for further evaluation suspected osteomyelitis. Orthopedics on board. Type 2 diabetes mellitus on insulin. Switched to basal bolus insulin regimen Recent right 2nd toe amputation. Wound care to continue Hypertension lowest blood pressure will hold blood pressure medication Code status full code DVT prophylaxis [facility] Hospitalist [facility] Advance Care Plan I have confirmed that the patient's Advanced Care Plan is present, code status is documented, or surrogate decision maker is listed in patient medical record.: Yes Medication Reconciliation I have utilized all available resources to obtain, update and review the patients current medications (includes all prescriptions, OTC, herbals, ca nnabis, and nutritional supplements).: Yes
[2024-08-20] MEDS: SODIUM CHLORIDE 0.9% IV 1,000 ML 100 ML IV CONT (12:55)
[2024-08-20] MEDS: ceFAZolin 2 GM/D5W 50 ML 2 GM/50 ML BAG IVPB ×2 (12:57→21:51)
[2024-08-20 13:12] LABS: CRP 23.6 mg/dL (<1.0)
[2024-08-20 13:24] LABS: Magnesium 1.7 mg/dL (1.6-2.3)
[2024-08-20 15:37] VITALS: BP 131/80; PULSE 105; RESP 18; TEMP 37; O2SAT 99
[2024-08-20 17:01] LABS: Glucose Point of Care 161 mg/dl (65-105)
[2024-08-20] MEDS: ONDANSETRON INJ 4 MG/2 ML VIAL IV PUSH (17:36)
[2024-08-20 18:56] LABS: Hemoglobin A1C 8.8 % (<5.7)
[2024-08-20 20:00] VITALS: PULSE 103; RESP 18; O2SAT 96
[2024-08-20 20:37] LABS: Glucose Point of Care 195 mg/dl (65-105)
[2024-08-20] MEDS: INSULIN GLARGINE (*BKC) 100 UNITS/ML 21 UNITS SUB-Q (21:52)
[2024-08-21] VITALS: BP 137/75; PULSE 103; RESP 18; TEMP 37.1; O2SAT 96
--- NOTE | 2024-08-21 | ECHO_ITS ---
Patient Info Name: Kain Montejo Age: 48 years : 1975 Gender: Male Ht: 72 in Wt: 250 lbs BSA: 2.44 m2 HR: 105 bpm BP: 139 / 91 mmHg Heart Rhythm: Sinus Rhythm Technical Quality: Good Exam Date: 08/21/2024 2:16 PM Exam Location: Echo Lab Patient Status: Inpatient Admit Date: 08/20/2024 Staff Ordering Physician: Shivani Lawrence APRN Marine Reporter: Maurice Dominguez RDCS Attending Provider: Jean-Pierre Barreto MD Referring Physician: Howard MERCADO; Exam Type: CA echo doppler color flow Study Info Indications - osteomylitis, bacteremia Complete two-dimensional, color flow and Doppler transthoracic echocardiogram is performed. Summary 1. Complete two-dimensional, color flow and Doppler transthoracic echocardiogram is performed. 2. LV size and wall thickness at upper limits of normal. Normal LV systolic function, ejection fraction about 60%. Grade 1 diastolic dysfunction. Normal RV size and systolic function. Mild left atrial enlargement. Normal mitral valve structure, trace MR. No hemodynamically significant aortic stenosis. Trace TR, RVSP 30 mmHg. Left Ventricle Left ventricular chamber dimension is normal. Left ventricular systolic function is normal, estimated at 60-65%. There is no increased left ventricular wall thickness. The left ventricular diastolic function is grade I diastolic dysfunction. Right Ventricle Right ventricular chamber dimension is normal. Right ventricular systolic function is normal. Left Atria Left atrial chamber dimension is mildly enlarged. Right Atria Right atrial chamber dimension is normal. Aortic Valve The aortic valve is normal. There is no aortic valve stenosis. Pulmonic Valve The pulmonic valve is not well visualized. Mitral Valve The mitral valve has normal leaflets. There is trace mitral valve regurgitation. Tricuspid Valve The tricuspid valve leaflets are normal. There is trace tricuspid valve regurgitation. Aorta The aortic root size at the sinus of Valsalva is normal. Left Ventricular Outflow Tract Name Value Normal LVOT 2D LVOT Diameter 2.1 cm LVOT Doppler LVOT Peak Gradient 4 mmHg LVOT Mean Gradient 2 mmHg LVOT VTI 17 cm LVOT VTI/AV VTI Ratio 0.8 LVOT Stroke Volume 61 ml LVOT CO 5.7 l/min LVOT CI 2.3 l/min/m2 Mitral Valve Name Value Normal MV Doppler MV Decel Pitt 545 cm/s2 MV PHT 47 ms MV Area (PHT) 4.6 cm2 4.0-5.0 MV Diastolic Function MV E Peak Velocity 89 cm/s MV A Peak Velocity 100 cm/s MV E/A 0.9 MV Decel Time 163 ms MV Annular TDI MV E/e' (Septal) 28.0 <=8.0 MV E/e' (Lateral) 9.6 <=8.0 MV E/e' (Average) 18.8 Tricuspid Valve Name Value Normal TV Regurgitation Doppler TR Peak Velocity 224 cm/s TR Peak Gradient 12 mmHg Estimated PAP/RSVP RA Pressure 10 mmHg <=5 PA Systolic Pressure 30 mmHg <36 RV Systolic Pressure 30 mmHg <36 Aortic Valve Name Value Normal AV Doppler AV Peak Velocity 134 cm/s AV Peak Gradient 7 mmHg AV Mean Gradient 5 mmHg AV VTI 23 cm AV Area (Cont Eq VTI) 2.7 cm2 >=3.0 AV Area (Cont Eq Jackson) 2.5 cm2 AV Regurgitation 2D LVOT Area 3.5 cm2 Ventricles Name Value Normal LV Dimensions 2D/MM IVS Diastolic Thickness (2D) 1.0 cm 0.6-1.0 LVID Diastole (2D) 5.1 cm 4.2-5.8 LVIW Diastolic Thickness (2D) 1.0 cm 0.6-1.0 LVID Systole (2D) 3.2 cm 2.5-4.0 LVOT Diameter 2.1 cm LV Mass (2D Cubed) 190.96 g 88.00-224.00 LV Mass Index (2D Cubed) 78 g/m2 49-115 Relative Wall Thickness (2D) 0.39 LV Fractional Shortening/Ejection Fraction 2D/MM LV Fractional Shortening (2D) 37 % 25-43 LV EF (2D Teicholz) 67 % 52-72 LV Diastolic Volume (4C MOD) 131 ml LV EF (4C MOD) 67 % LV Diastolic Volume (2C MOD) 120 ml LV EF (2C MOD) 56 % LV Diastolic Volume (BP MOD) 125 ml 62-150 LV Diastolic Volume Index (BP MOD) 52 ml/m2 34-74 LV Systolic Volume (BP MOD) 49 ml 21-61 LV Systolic Volume Index (BP MOD) 20 ml/m2 11-31 LV EF (BP MOD) 61 % 52-72 LV Diastolic Length (4C) 9.0 cm LV Systolic Length (4C) 7.3 cm LV Stroke Volume (4C MOD) 88 ml Atria Name Value Normal LA Dimensions LA Volume (4C A-L) 50 ml LA Volume (BP A-L) 59 ml RA Dimensions RA Area (4C) 13.6 cm2 <=18.0 Report Signatures
[2024-08-21] MEDS: ceFAZolin 2 GM/D5W 50 ML 2 GM/50 ML BAG IVPB (05:26)
[2024-08-21] MEDS: ONDANSETRON INJ 4 MG/2 ML VIAL IV PUSH (05:30)
[2024-08-21 05:33] LABS: Basophils Percent Auto 0.3 % (0.2-1.2); Eosinophils Absolute Auto 0.1 K/mm3 (0-0.3); Eosinophils Percent Auto 0.6 % (0-4.4); Hematocrit 31.7 % (42.0-52.0); Hemoglobin 10.4 g/dL (14.0-18.0); Immature Granulocyte Absolute 0.02 K/mm3 (0.00-0.031); Immature Granulocyte Percent A 0.2 % (0-0.5); Lymphocytes Absolute Auto 1.46 K/mm3 (0.9-3.2); Lymphocytes Percent Auto 16.5 % (18.3-44.2); Mean Corpuscular HGB Conc 32.8 g/dl (32-36); Mean Corpuscular Hemoglobin 26.8 pg (26-34); Mean Corpuscular Volume 81.7 fl (80-100); Mean Platelet Volume 8.8 fl (7.4-10.4); Monocytes Absolute Auto 0.9 K/mm3 (0.1-0.6); Monocytes Percent Auto 9.7 % (2.6-8.5); Neutrophils Absolute Auto 6.4 K/mm3 (1.3-6.7); Neutrophils Percent Auto 72.7 % (45.5-73.1); Platelet Count Result 404 k/mm3 (150-375); Red Blood Count 3.88 M/mm3 (4.6-6.20); Red Cell Distribution Width 13.9 % (11.5-14.5); White Blood Count 8.9 K/mm3 (4.5-10.0)
[2024-08-21 07:48] LABS: Alanine Aminotransferase 8 U/L (6-50); Albumin Level 3.3 g/dL (3.5-5.1); Alkaline Phosphatase 91 U/L (38-126); Anion Gap 6 mmol/L (4-12); Aspartate Amino Transferase 18 U/L (17-59); Bilirubin,Total 0.9 mg/dL (0.2-1.3); Blood Urea Nitrogen 27 mg/dL (9-20); Calcium 8.4 mg/dL (8.4-10.2); Carbon Dioxide 28 mmol/L (22-30); Chloride 101 mmol/L (98-107); Estimated CRCL calculation 72 ml/min; Estimated Glomerular Filt Rate 54; Glucose 149 mg/dL (65-110); Magnesium 1.7 mg/dL (1.6-2.3); Potassium 4.3 mmol/L (3.4-5.0); Sodium 135 mmol/L (137-145)
[2024-08-21 08:00] VITALS: BP 139/91; PULSE 105; RESP 16; TEMP 36.3; O2SAT 98
[2024-08-21 09:08] LABS: Glucose Point of Care 183 mg/dl (65-105)
--- NOTE | 2024-08-21 10:28 | P.PNIM_ITS ---
Progress Note: A&P Assessment and Plan (1) Osteomyelitis of right foot: Code(s): M86.9 - Osteomyelitis, unspecified Status: Acute Assessment and Plan: * This is a 48-year-old male who recently underwent left 5th ray amputation in 2020, recently admitted for right foot infection underwent right TMA of 2nd toe in June 08, 2024. He has been followed up by Wound Care since discharge. He return to ER on August 08 with right ankle pain. CT of the foot at that time showed soft tissue edema without her remain hand Del Angel fluid collection or gas within the soft tissues blood culture and wound culture were obtained which came back positive for MSSA. He has not followed up since the positive blood culture and had not been on antibiotics. [facility] was [facility] where he presented for his routine wound care. Orthopedics evaluated the patient and noted wound getting worse as well as findings of positive blood culture recently which was not treated. He has also been feeling unwell and had some chills and night sweats. He also complained of right ankle pain that has been ongoing. * MR right ankle and MR right foot today showed: MPRESSION: 1. Likely septic arthritis at the ankle and subtalar joints with draining sinus tract draining from the anterior subtalar joint/sinus Tarsi to the dorsolateral hindfoot. 2. Associated osteomyelitis most prominent at the anterior process of the calcaneus also involving portions of the talus as detailed above. 3. Overlying myositis involving the intrinsic musculature at the dorsal midfoot with suggestion of tendinopathy and likely at least partial tears of the more superficial extensor digitorum longus tendons to the fifth and possibly fourth toes. 4. Complete tear and proximal retraction of the extensor hallucis longus and anterior tibial tendons, the former with likely associated septic tenosynovitis. 5. Chronic amputation of the second toe with suspicion for osteomyelitis at the distal diaphysis of the second metatarsal. 6. 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 7. Old healed fractures at the necks of the third and fourth metatarsals. * Patient started on Cefepime 2 gm IVPB q 8, Vancomycin 1,500 mg IVPB q 18, and Metronidiazole 500 mg PO q 8. * Daily dressing changes. * Orthopedic consulted. * Echo ordered. * Repeat wound culture. (2) Bacteremia: Code(s): R78.81 - Bacteremia Status: Acute Assessment and Plan: * 08/08/24 blood cultures grew Staphylococcus Aureus * Blood cultures repeated. * Vancomycin 1,500 mg IVPB q 18 (3) Acute right ankle pain: Code(s): M25.571 - Pain in right ankle and joints of right foot Status: Acute Assessment and Plan: * Acetaminophen 650 mg PO q 4 PRN. (4) Diabetes mellitus: Qualifiers: Diabetes mellitus complication detail: with other skin complication Diabetes mellitus complication status: with skin complications Diabetes mellitus [facility] insulin use: with intermission coordinator use Diabetes mellitus type: type 2 Qualified Code(s): E11.628 - Type 2 diabetes mellitus with other skin compli cations; Z79.4 - [facility] (current) use of insulin Code(s): E11.9 - Type 2 diabetes mellitus without complications Status: Acute Assessment and Plan: * HgbA1c 8.8%. * Basal bolus insulin regimen. * Glargine 21 units subq qhs. (5) Insulin dependent diabetes mellitus: Status: Chronic Assessment and Plan: * Basal bolus insulin regimen. * Glargine 21 units subq qhs. (6) HTN (hypertension): Code(s): I10 - Essential (primary) hypertension Status: Acute Assessment and Plan: * Restart blood pressure medication losartan-HCTZ 50-12.5 mg PO daily. * BP 159/78 (7) Nausea: Code(s): R11.0 - Nausea Status: Acute Assessment and Plan: * Ondansetron 4 mg iv q 6 PRN. Subjective Date/time seen: 08/21/24 10:28 Interval history: Patient reports nausea when he drinks anything. Patient denies vomiting. Patient denies pain at present in his right foot. Review of Systems Review of Systems: All systems reviewed & are unremarkable except as noted in HPI and below Exam Const: General: comfortable and no acute distress Resp: Effort & Inspection: normal respiratory effort Auscultation: clear to auscultation bilaterally Cardio: Rate: regular rate Rhythm: regular rhythm GI: GI Palp: Yes Soft to palpation Auscultation: normal bowel sounds Skin: Other: Normal range of motion. Right 2nd toe amputation. Open wound present to the dorsal surface of the foot. with reddish granulation tissue. some foul smell. Neuro: Speech: normal speech Extrem: General: normal to inspection Psych: Mental Status: mental status grossly normal Other: Flat affect Objective Data Vital Signs Vital Signs: Vital Signs - 24 hr 08/20/24 11:26 08/20/24 15:37 08/21/24 00:00 Temperature 98.8 F 98.6 F 98.7 F Pulse Rate 108 H 105 H 103 H Respiratory Rate 16 18 18 Blood Pressure 133/79 131/80 137/75 Pulse Oximetry 100 99 96 Oxygen Delivery 08/20/24 20:00 08/21/24 08:00 Temperature 97.4 F L Pulse Rate 103 H 105 H Respiratory Rate 18 16 Blood Pressure 139/91 H Pulse Oximetry 96 98 Oxygen Delivery Room Air Intake/Output Intake/Output: Intake & Output 08/18/24 08/19/24 08/20/24 08/21/24 23:59 23:59 23:59 23:59 Intake Total 340 240 Output Total 550 Balance -210 240 Meds/Results Medications: Active Medications Generic Name Dose Route Start Last Admin Trade Name Freq PRN Reason Stop Dose Admin Acetaminophen 650 mg 08/20/24 12:16 Acetaminophen 325 Mg Tablet PO Q4H PRN Mild Pain (1-3) or Fever Dextrose 12.5 gm 08/20/24 12:22 Dextrose 50% 25 Gm/50 Ml Syringe IV PUSH PRN PRN Hypoglycemia Protocol Glucagon 1 mg 08/20/24 12:22 Glucagon For Inj 1 Mg Vial IM PRN PRN Hypoglycemia Protocol Glucose 15 gm 08/20/24 12:22 Glucose Oral Gel 15 Gm Of Glucse In 37.5 Gm Tube PO PRN PRN Hypoglycemia Protocol Sodium Chloride 1,000 mls @ 100 mls/hr 08/20/24 12:20 08/20/24 12:55 Normal Saline Iv IV CONT 100 mls/hr .Q10H ARLEEN Administration Cefazolin Sodium 2 gm in 50 mls @ 100 mls/hr 08/20/24 13:00 08/21/24 05:26 Ancef 2 Gm/D5w 50 Ml IVPB 100 mls/hr Q8HR ARLEEN Administration Dextrose 1,000 mls @ 100 mls/hr 08/20/24 12:22 Dextrose 5% 1,000 Ml IVPB PRN PRN Hypoglycemia Protocol Insulin Aspart 7 units 08/20/24 17:00 08/21/24 10:22 Insulin Aspart (*Bkc) 100 Units/Ml 0.067 units/kg (7 units) Not Given SUB-Q TIDWM [facility] Insulin Glargine 21 units 08/20/24 21:00 08/20/24 21:52 Insulin Glargine (*Bkc) 100 Units/Ml 0.2 units/kg (21 units) 21 units SUB-Q Administration HS ARLEEN Ondansetron HCl 4 mg 08/20/24 17:21 08/21/24 05:30 Ondansetron Inj 4 Mg/2 Ml Vial IV PUSH 4 mg Q6H PRN Administration Nausea And Vomiting Radiology Results: ITS Impressions Ankle MRI 08/21/24 08:41 IMPRESSION: 1. Likely septic arthritis at the ankle and subtalar joints with draining sinus tract draining from the anterior subtalar joint/sinus Tarsi to the dorsolateral hindfoot. 2. Associated osteomyelitis most prominent at the anterior process of the calcaneus also involving portions of the talus as detailed above. 3. Overlying myositis involving the intrinsic musculature at the dorsal midfoot with suggestion of tendinopathy and likely at least partial tears of the more superficial extensor digitorum longus tendons to the fifth and possibly fourth toes. 4. Complete tear and proximal retraction of the extensor hallucis longus and anterior tibial tendons, the former with likely associated septic tenosynovitis. 5. Chronic amputation of the second toe with suspicion for osteomyelitis at the distal diaphysis of the second metatarsal. 6. 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 7. Old healed fractures at the necks of the third and fourth metatarsals. Foot MRI 08/21/24 08:41 IMPRESSION: 1. Likely septic arthritis at the ankle and subtalar joints with draining sinus tract draining from the anterior subtalar joint/sinus Tarsi to the dorsolateral hindfoot. 2. Associated osteomyelitis most prominent at the anterior process of the calcaneus also involving portions of the talus as detailed above. 3. Overlying myositis involving the intrinsic musculature at the dorsal midfoot with suggestion of tendinopathy and likely at least partial tears of the more superficial extensor digitorum longus tendons to the fifth and possibly fourth toes. 4. Complete tear and proximal retraction of the extensor hallucis longus and anterior tibial tendons, the former with likely associated septic tenosynovitis. 5. Chronic amputation of the second toe with suspicion for osteomyelitis at the distal diaphysis of the second metatarsal. 6. 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 7. Old healed fractures at the necks of the third and fourth metatarsals. Labs Labs: Laboratory Results - last 24 hr 08/20/24 08/20/24 08/20/24 10:58 11:02 11:04 WBC 11.8 H RBC 4.50 L Hgb 12.1 L Hct 37.5 L MCV 83.3 MCH 26.9 MCHC 32.3 RDW 13.7 Plt Count 481 H MPV 9.1 Immature Gran % (Auto) 0.5 Neut % (Auto) 81.0 H Lymph % (Auto) 10.0 L [place] % (Auto) 8.0 Eos % (Auto) 0.2 Baso % (Auto) 0.3 Lymph # (Auto) 1.18 [place] # (Auto) 1.0 H Eos # (Auto) 0.0 Baso # (Auto) 0.0 Abs Immat Gran (auto) 0.06 H Absolute Neuts (auto) 9.6 H Absolute Nucleated RBC 0.000 Nucleated RBC % 0.0 ESR 61 H Sodium 137 Potassium 4.1 Chloride 100 Carbon Dioxide 26 Anion Gap 11 BUN 26 H Creatinine 1.50 H Estim Creat Clear Calc 67 Estimated GFR 50 L Glucose 204 H POC Capillary Glucose Hemoglobin A1c 8.8 H Lactic Acid Calcium 9.5 Magnesium 1.7 Total Bilirubin AST ALT Alkaline Phosphatase C-Reactive Protein 23.6 H Total Protein Albumin 08/20/24 08/20/24 08/20/24 11:47 12:34 16:57 WBC RBC Hgb Hct MCV MCH MCHC RDW Plt Count MPV Immature Gran % (Auto) Neut % (Auto) Lymph % (Auto) [place] % (Auto) Eos % (Auto) Baso % (Auto) Lymph # (Auto) [place] # (Auto) Eos # (Auto) Baso # (Auto) Abs Immat Gran (auto) Absolute Neuts (auto) Absolute Nucleated RBC Nucleated RBC % ESR Sodium Potassium Chloride Carbon Dioxide Anion Gap BUN Creatinine Estim Creat Clear Calc Estimated GFR Glucose POC Capillary Glucose 198 H 161 H Hemoglobin A1c Lactic Acid 1.0 Calcium Magnesium Total Bilirubin AST ALT Alkaline Phosphatase C-Reactive Protein Total Protein Albumin 08/20/24 08/21/2408/21/24 20:27 05:07 08:53 WBC 8.9 RBC 3.88 L Hgb 10.4 L Hct 31.7 L MCV 81.7 MCH 26.8 MCHC 32.8 RDW 13.9 Plt Count 404 H MPV 8.8 Immature Gran % (Auto) 0.2 Neut % (Auto) 72.7 Lymph % (Auto) 16.5 L [place] % (Auto) 9.7 H Eos % (Auto) 0.6 Baso % (Auto) 0.3 Lymph # (Auto) 1.46 [place] # (Auto) 0.9 H Eos # (Auto) 0.1 Baso # (Auto) 0.0 Abs Immat Gran (auto) 0.02 Absolute Neuts (auto) 6.4 Absolute Nucleated RBC 0.000 Nucleated RBC % 0.0 ESR Sodium 135 L Potassium 4.3 Chloride 101 Carbon Dioxide 28 Anion Gap 6 BUN 27 H Creatinine 1.40 H Estim Creat Clear Calc 72 Estimated GFR 54 L Glucose 149 H POC Capillary Glucose 195 H 183 H Hemoglobin A1c Lactic Acid Calcium 8.4 Magnesium 1.7 Total Bilirubin 0.9 AST 18 ALT 8 Alkaline Phosphatase 91 C-Reactive Protein Total Protein 8.0 Albumin 3.3 L Quality VTE Prophylaxis VTE prophylaxis: mechanical ordered
[2024-08-21 11:56] LABS: Glucose Point of Care 207 mg/dl (65-105)
[2024-08-21] MEDS: CEFEPIME 2 GM/NS 50 ML 2 GM/50 ML BAG IVPB ×2 (11:59→18:04)
[2024-08-21] MEDS: VANCOMYCIN 1,250 MG/NS 250 ML 1,250 MG/250 ML BAG 166.67 MG IVPB ×2 (12:41→14:29)
[2024-08-21] MEDS: metroNIDAZOLE 500 MG TABLET PO ×2 (14:29→22:10)
[2024-08-21 15:35] VITALS: BP 159/78; PULSE 101; RESP 16; TEMP 37; O2SAT 98
[2024-08-21 16:52] LABS: Glucose Point of Care 154 mg/dl (65-105)
--- NOTE | 2024-08-21 17:33 | P.PNOP_ITS ---
Progress Note: A&P Assessment and Plan (1) Osteomyelitis of right foot: Code(s): M86.9 - Osteomyelitis, unspecified Status: Acute (2) Septic arthritis of ankle and foot region: Code(s): M00.9 - Pyogenic arthritis, unspecified Status: Acute Assessment and Plan: PATIENT IS HERE FOR ADMISSION AFTER HAVING A RIGHT 2ND RAY AMPUTATION PER DR HOLLY. HE NOW APPEARS TO HAVE RIGHT ANKLE SEPSIS AND DRAINING SINUS FROM MIDFOOT TO ANKLE. HE WILL REQUIRE REPEAT I AND D OF BOTH FOOT AND ANKLE. WE DISCUSSED THE IMPLICATION OF HIS PROBLEM AND THE POSSIBILITY OF PARTIAL LIMB LOSS AND BK AMPUTATION AND HE UNDERSTANDS. I WILL DISCUSS WITH DR AGUILAR AND WE WILL PROCEED ACCORDINGLY. FOR NOW SINCE HE IS STABLE WITH NORMAL WBC COUNT WE WILL ALLOW HIM TO EAT TODAY AND REEVALUATE HIM TOMORROW. Subjective Subjective Date/Time Seen: 08/21/24 17:33 Interval history: RIGHT FOOT HAS DRAINAGE. PATIENT IS AFEBRILE, WBC DECREASED, HAVING DIFFICULTY WITH EATING AND KEEPING HIS FOOD DOWN. NO OTHER NEW COMPLAINTS Exam Neuro: Other: VSS AFEBRILE, PURULENT DRAINAGE FROM RIGHT MID FOOT WOUND, DISTAL WOUND HEALED, NO SIGNIFICANT CELLULITIS, SWELLING AND ANKLE EFFUSION IS MILD TO MODERATE, PAIN WITH PROM OF ANKLE IS MILD TO MODERATE.OTHERWISE NO CALF PAIN OR TENDERNESS TO THE THIGH KNEE JOINT NO PAIN WITH ROM, NO SWELLING, NO EFFUSION Objective Data Vital Signs Vital Signs: Vital Signs - 24 hr 08/21/24 00:00 08/20/24 20:00 08/21/24 08:00 Temperature 37.1 C 36.3 C L Pulse Rate 103 H 103 H 105 H Respiratory Rate 18 18 16 Blood Pressure 137/75 139/91 H Pulse Oximetry 96 96 98 Oxygen Delivery Room Air 08/21/24 09:30 08/21/24 15:35 Temperature 37.0 C Pulse Rate 101 H Respiratory Rate 16 Blood Pressure 159/78 H Pulse Oximetry 98 Oxygen Delivery Room Air Intake/Output Intake/Output: Intake & Output 08/18/24 08/19/24 08/20/24 08/21/24 23:59 23:59 23:59 23:59 Intake Total 340 240 Output Total 550 Balance -210 240 Meds/Results Medications: Active Medications Generic Name Dose Route Start Last Admin Trade Name Freq PRN Reason Stop Dose Admin Acetaminophen 650 mg 08/20/24 12:16 Acetaminophen 325 Mg Tablet PO Q4H PRN Mild Pain (1-3) or Fever Dextrose 12.5 gm 08/20/24 12:22 Dextrose 50% 25 Gm/50 Ml Syringe IV PUSH PRN PRN Hypoglycemia Protocol Glucagon 1 mg 08/20/24 12:22 Glucagon For Inj 1 Mg Vial IM PRN PRN Hypoglycemia Protocol Glucose 15 gm 08/20/24 12:22 Glucose Oral Gel 15 Gm Of Glucse In 37.5 Gm Tube PO PRN PRN Hypoglycemia Protocol Hydrochlorothiazide 12.5 mg 08/22/24 09:00 Hydrochlorothiazide 12.5 Mg Capsule PO DAILY ARLEEN Sodium Chloride 1,000 mls @ 100 mls/hr 08/20/24 12:20 08/21/24 11:56 Normal Saline Iv IV CONT Not Given .Q10H ARLEEN Dextrose 1,000 mls @ 100 mls/hr 08/20/24 12:22 Dextrose 5% 1,000 Ml IVPB PRN PRN Hypoglycemia Protocol Cefepime HCl 2 gm in 50 mls @ 100 mls/hr 08/21/24 11:00 08/21/24 11:59 Maxipime 2 Gm/Ns 50 Ml IVPB 100 mls/hr Q8H ARLEEN Administration Vancomycin HCl 1,500 mg in 500 mls @ 250 mls/hr 08/22/24 06:00 Vancomycin 1,500 Mg/Ns 500 Ml IVPB Q18H ARLEEN Insulin Aspart 7 units 08/20/24 17:00 08/21/24 13:12 Insulin Aspart (*Bkc) 100 Units/Ml 0.067 units/kg (7 units) Not Given SUB-Q TIDWM [facility] Insulin Glargine 21 units 08/20/24 21:00 08/20/24 21:52 Insulin Glargine (*Bkc) 100 Units/Ml 0.2 units/kg (21 units) 21 units SUB-Q Administration HS ARLEEN Losartan Potassium 50 mg 08/22/24 09:00 Losartan Potassium 50 Mg Tablet PO DAILY ARLEEN Metronidazole 500 mg 08/21/24 14:00 08/21/24 14:29 Metronidazole 500 Mg Tablet PO 500 mg Q8HR ARLEEN Administration Ondansetron HCl 4 mg 08/20/24 17:21 08/21/24 05:30 Ondansetron Inj 4 Mg/2 Ml Vial IV PUSH 4 mg Q6H PRN Administration Nausea And Vomiting Perflutren Lipid Microsphere 0 ml 08/21/24 14:00 Perflutren Lipid Microspheres 1.5 Ml Vial Diluted To 10 Ml Total Volume IV PUSH 08/24/24 14:00 ONCE PRN adequate visualization Protocol Radiology Results: ITS Impressions Ankle MRI 08/21/24 08:41 IMPRESSION: 1. Likely septic arthritis at the ankle and subtalar joints with draining sinus tract draining from the anterior subtalar joint/sinus Tarsi to the dorsolateral hindfoot. 2. Associated osteomyelitis most prominent at the anterior process of the calcaneus also involving portions of the talus as detailed above. 3. Overlying myositis involving the intrinsic musculature at the dorsal midfoot with suggestion of tendinopathy and likely at least partial tears of the more superficial extensor digitorum longus tendons to the fifth and possibly fourth toes. 4. Complete tear and proximal retraction of the extensor hallucis longus and anterior tibial tendons, the former with likely associated septic tenosynovitis. 5. Chronic amputation of the second toe with suspicion for osteomyelitis at the distal diaphysis of the second metatarsal. 6. 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 7. Old healed fractures at the necks of the third and fourth metatarsals. Foot MRI 08/21/24 08:41 IMPRESSION: 1. Likely septic arthritis at the ankle and subtalar joints with draining sinus tract draining from the anterior subtalar joint/sinus Tarsi to the dorsolateral hindfoot. 2. Associated osteomyelitis most prominent at the anterior process of the calcaneus also involving portions of the talus as detailed above. 3. Overlying myositis involving the intrinsic musculature at the dorsal midfoot with suggestion of tendinopathy and likely at least partial tears of the more superficial extensor digitorum longus tendons to the fifth and possibly fourth toes. 4. Complete tear and proximal retraction of the extensor hallucis longus and anterior tibial tendons, the former with likely associated septic tenosynovitis. 5. Chronic amputation of the second toe with suspicion for osteomyelitis at the distal diaphysis of the second metatarsal. 6. 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 7. Old healed fractures at the necks of the third and fourth metatarsals. Labs Labs: Laboratory Results - last 24 hr 08/20/24 08/20/24 08/21/24 10:58 20:27 05:07 WBC 8.9 RBC 3.88 L Hgb 10.4 L Hct 31.7 L MCV 81.7 MCH 26.8 MCHC 32.8 RDW 13.9 Plt Count 404 H MPV 8.8 Immature Gran % (Auto) 0.2 Neut % (Auto) 72.7 Lymph % (Auto) 16.5 L [place] % (Auto) 9.7 H Eos % (Auto) 0.6 Baso % (Auto) 0.3 Lymph # (Auto) 1.46 [place] # (Auto) 0.9 H Eos # (Auto) 0.1 Baso # (Auto) 0.0 Abs Immat Gran (auto) 0.02 Absolute Neuts (auto) 6.4 Absolute Nucleated RBC 0.000 Nucleated RBC % 0.0 Sodium 135 L Potassium 4.3 Chloride 101 Carbon Dioxide 28 Anion Gap 6 BUN 27 H Creatinine 1.40 H Estim Creat Clear Calc 72 Estimated GFR 54 L Glucose 149 H POC Capillary Glucose 195 H Hemoglobin A1c 8.8 H Calcium 8.4 Magnesium 1.7 Total Bilirubin 0.9 AST 18 ALT 8 Alkaline Phosphatase 91 Total Protein 8.0 Albumin 3.3 L 08/21/24 08/21/24 08/21/24 08:53 11:38 16:47 WBC RBC Hgb Hct MCV MCH MCHC RDW Plt Count MPV Immature Gran % (Auto) Neut % (Auto) Lymph % (Auto) [place] % (Auto) Eos % (Auto) Baso % (Auto) Lymph # (Auto) [place] # (Auto) Eos # (Auto) Baso # (Auto) Abs Immat Gran (auto) Absolute Neuts (auto) Absolute Nucleated RBC Nucleated RBC % Sodium Potassium Chloride Carbon Dioxide Anion Gap BUN Creatinine Estim Creat Clear Calc Estimated GFR Glucose POC Capillary Glucose 183 H 207 H 154 H Hemoglobin A1c Calcium Magnesium Total Bilirubin AST ALT Alkaline Phosphatase Total Protein Albumin
[2024-08-21] MEDS: SODIUM CHLORIDE 0.9% IV 1,000 ML 100 ML IV CONT (18:03)
[2024-08-21 20:49] LABS: Glucose Point of Care 174 mg/dl (65-105)
[2024-08-21] MEDS: INSULIN GLARGINE (*BKC) 100 UNITS/ML 21 UNITS SUB-Q (20:50)
[2024-08-22] VITALS: BP 164/89; PULSE 99; RESP 18; TEMP 36.9; O2SAT 99
[2024-08-22] MEDS: SODIUM CHLORIDE 0.9% IV 1,000 ML 100 ML IV CONT ×2 (02:59→17:22)
[2024-08-22] MEDS: CEFEPIME 2 GM/NS 50 ML 2 GM/50 ML BAG IVPB ×3 (02:59→19:13)
[2024-08-22] MEDS: VANCOMYCIN 1,500 MG/NS 500 ML 1,500 MG/500 ML BAG 250 MG IVPB ×2 (05:52→17:13)
[2024-08-22] MEDS: metroNIDAZOLE 500 MG TABLET PO ×3 (05:52→21:49)
[2024-08-22] MEDS: ONDANSETRON INJ 4 MG/2 ML VIAL IV PUSH (05:58)
[2024-08-22 06:17] LABS: Basophils Percent Auto 0.5 % (0.2-1.2); Eosinophils Percent Auto 0.5 % (0-4.4); Hemoglobin 10.3 g/dL (14.0-18.0); Immature Granulocyte Absolute 0.04 K/mm3 (0.00-0.031); Immature Granulocyte Percent A 0.5 % (0-0.5); Lymphocytes Absolute Auto 1.13 K/mm3 (0.9-3.2); Lymphocytes Percent Auto 14.4 % (18.3-44.2); Mean Corpuscular HGB Conc 32.2 g/dl (32-36); Mean Corpuscular Hemoglobin 26.5 pg (26-34); Mean Corpuscular Volume 82.3 fl (80-100); Mean Platelet Volume 8.7 fl (7.4-10.4); Monocytes Absolute Auto 0.8 K/mm3 (0.1-0.6); Monocytes Percent Auto 10.1 % (2.6-8.5); Neutrophils Absolute Auto 5.8 K/mm3 (1.3-6.7); Platelet Count Result 415 k/mm3 (150-375); Red Blood Count 3.89 M/mm3 (4.6-6.20); Red Cell Distribution Width 13.8 % (11.5-14.5); White Blood Count 7.9 K/mm3 (4.5-10.0)
[2024-08-22 06:23] VITALS: BP 159/97; PULSE 101; RESP 18; TEMP 37; O2SAT 100
[2024-08-22 06:36] LABS: Alanine Aminotransferase 8 U/L (6-50); Albumin Level 3.3 g/dL (3.5-5.1); Alkaline Phosphatase 94 U/L (38-126); Anion Gap 5 mmol/L (4-12); Aspartate Amino Transferase 16 U/L (17-59); Blood Urea Nitrogen 19 mg/dL (9-20); Calcium 8.4 mg/dL (8.4-10.2); Carbon Dioxide 28 mmol/L (22-30); Chloride 101 mmol/L (98-107); Estimated CRCL calculation 90 ml/min; Estimated Glomerular Filt Rate > 60; Glucose 164 mg/dL (65-110); Potassium 4.3 mmol/L (3.4-5.0); Sodium 134 mmol/L (137-145)
[2024-08-22 08:30] LABS: Glucose Point of Care 144 mg/dl (65-105)
[2024-08-22 08:57] VITALS: RESP 18; O2SAT 100
[2024-08-22] MEDS: LOSARTAN POTASSIUM 50 MG TABLET PO (08:57)
[2024-08-22] MEDS: hydroCHLOROthiazide 12.5 MG CAPSULE PO (08:57)
--- NOTE | 2024-08-22 09:12 | P.PNOP_ITS ---
Progress Note: A&P Assessment and Plan (1) Bacteremia: Code(s): R78.81 - Bacteremia Status: Acute Assessment and Plan: Blood cultures from hospital admission on 08/08 revealed Staph. Wound cultures from 08/08 are positive for Staph and group B strep. No IV or oral antibiotics since discharge on 08/09. Repeat blood cultures pending. IV antibiotics initiated by the hospitalist service. (2) Acute right ankle pain: Code(s): M25.571 - Pain in right ankle and joints of right foot Status: Acute Assessment and Plan: Right ankle pain with inability to flex and extend without severe pain. Wound and redness noted over the anterior/lateral aspect of the right ankle. Now with probing into the midfoot and ankle. Mild malodor with increase serosanguineous drainage. MRI of the right ankle reveals septic arthritis at the ankle and subtalar joints with draining sinus tract from the anterior subtalar joint, sinus tarsi to the dorsolateral hindfoot. There is associated osteomyelitis in the anterior process of the calcaneus and portions of the talus. Myositis in the musculature in the dorsal midfoot noted. The previous amputation of the 2nd toe reveals possible suspicion for osteomyelitis at the distale metatarsal stump. Condition, nature, etiology and course of natural history discussed. Conservative and operative treatment options reviewed as well as the risks and benefits of both. Discussed possible need for BKA. Recommended initial surgical intervention with I&D of the right foot/ankle and wound VAC application given concern for sepsis. Risks of surgery including but not limited to neurovascular damage, wound complications, blood clot, pulmonary embolus, stroke, myocardial infarction, anesthetic risks up to and including were reviewed. Continued pain and possible dysfunction were explained. No guarantees were offered. The patient understands and wishes to proceed. Plan: I&D of right foot/ankle with wound VAC application by Dr. Reinoso. NPO. Pain control. HOLD anticoagulation. Continue IV antibiotics. Medical clearance. Anesthesia clearance. Obtain consent. (3) Nausea: Code(s): R11.0 - Nausea Status: Acute Assessment and Plan: Continue to monitor. If no improvement with antibiotic treatment, may require GI consult as he has had 3 weeks of nausea/vomiting. Medicine team following. (4) Diabetes mellitus: Qualifiers: Diabetes mellitus complication detail: with other skin complication Diabetes mellitus complication status: with skin complications Diabetes mellitus rat exterminator insulin use: with rat exterminator use Diabetes mellitus type: type 2 Qualified Code(s): E11.628 - Type 2 diabetes mellitus with other skin complications; Z79.4 - supervisor intermediates (current) use of insulin Code(s): E11.9 - Type 2 diabetes mellitus without complications Status: Acute (5) Amputated toe of right foot: Code(s): S98.131A - Complete traumatic amputation of one right lesser toe, initial encounter Status: Acute Assessment and Plan: History of right 2nd toe amputation. Wound appears stable. Hypergranulation noted. MRI reveals possible OM at site of amputation. May require further debridement vs. definitive surgical intervention with BKA. Patient aware. Plan for I&D of the right foot/ankle today by Dr. Reinoso. Continue daily dressing changes at this time. Continue fracture boot with WBAT OR post op shoe. Plan Reviewed history, exam, radiographs and current labs with attending MD and covering surgeon, Dr. Reinoso, who agrees with current plan as indicated above. No further recommendations from Dr. Reinoso at this time. Subjective Subjective Date/Time Seen: 08/22/24 09:12 Interval history: Patient awake and alert. Reports improvement in pain of right ankle with standing today. Concern about results of MRI and plan moving forward. Reports episode of vomiting at 5:00 a.m.. Has been able to keep down water and orange juice thus far this morning. Review of Systems Review of Systems: All systems reviewed & are unremarkable except as noted in HPI and below Exam Const: General: alert, awake, ill appearing (pale ), tired appearing and well nourished Orientation/consciousness: patient oriented x3 Limitations: no limitations HENMT: Head: normal to inspection Ears: hearing grossly normal bilaterally Face/Nose/Sinus: Normal external nose present Face and sinus: normal facial exam Neck: Neck: normal visual inspection Extrem: Right lower extremity: ankle Details: tenderness Location: of the lateral malleolus and of the medial malleolus, swelling Details: laterally and posteriorly, abnormal ROM Details: pain with active ROM Details: with plantar flexion and with dorsiflexion and pain with passive ROM Details: with plantar flexion and with dorsiflexion, warmth and other (redness, laterally ); no ecchymosis and foot ( 2nd toe amputation) Details: abnormal to inspection, vascular exam Details: dorsalis pedis pulse present ( With Doppler), posterior tibial pulse present ( with Doppler) and abnormal capillary refill Location: of all toes, motor-sensory exam Details: light-touch abnormal and other ( see wound assessment below); abnormal capillary refill Other: Wound on the dorsal lateral aspect of the right foot measures 4 x 8.5 x 1.5 cm, 100% red/ pink wound bed with hyper granulated tissue noted. The wound probes 5 cm in to the midfoot and ankle. Increased drainage. No purulence however serosanguineous drainage with small amounts of white, clotted material noted. Erythema to the right lateral ankle improvement in comparison to previous. Now with complaints of medial-sided ankle pain as well. Diffuse soft tissue swelling. Additional wound at the side of the 2nd toe amputation measures 3.5 x 1 x 0.3 cm, 100% red/ pink wound bed with hyper granulated tissue. Unable to probe to bone. Mild malodorous. Psych: Appearance: well kempt Mental Status: mental status grossly normal Objective Data Vital Signs Vital Signs: Vital Signs - 24 hr 08/21/24 09:30 08/21/24 15:35 08/22/24 00:00 Temperature 37.0 C 36.9 C Pulse Rate 101 H 99 Respiratory Rate 16 18 Blood Pressure 159/78 H 164/89 H Pulse Oximetry 98 99 Oxygen Delivery Room Air 08/22/24 06:23 Temperature 37.0 C Pulse Rate 101 H Respiratory Rate 18 Blood Pressure 159/97 H Pulse Oximetry 100 Oxygen Delivery Intake/Output Intake/Output: Intake & Output 08/19/24 08/20/24 08/21/24 08/22/24 23:59 23:59 23:59 23:59 Intake Total 5085 907 7026.0 Output Total 550 0 Balance 333 220 2226.0 Meds/Results Medications: Active Medications Generic Name Dose Route Start Last Admin Trade Name Freq PRN Reason Stop Dose Admin Acetaminophen 650 mg 08/20/24 12:16 Acetaminophen 325 Mg Tablet PO Q4H PRN Mild Pain (1-3) or Fever Dextrose 12.5 gm 08/20/24 12:22 Dextrose 50% 25 Gm/50 Ml Syringe IV PUSH PRN PRN Hypoglycemia Protocol Glucagon 1 mg 08/20/24 12:22 Glucagon For Inj 1 Mg Vial IM PRN PRN Hypoglycemia Protocol Glucose 15 gm 08/20/24 12:22 Glucose Oral Gel 15 Gm Of Glucse In 37.5 Gm Tube PO PRN PRN Hypoglycemia Protocol Hydrochlorothiazide 12.5 mg 08/22/24 09:00 08/22/24 08:57 Hydrochlorothiazide 12.5 Mg Capsule PO 12.5 mg DAILY ARLEEN Administration Sodium Chloride 1,000 mls @ 100 mls/hr 08/20/24 12:20 08/22/24 08:56 Normal Saline Iv IV CONT 100 mls/hr .Q10H ARLEEN Infusion Dextrose 1,000 mls @ 100 mls/hr 08/20/24 12:22 Dextrose 5% 1,000 Ml IVPB PRN PRN Hypoglycemia Protocol Cefepime HCl 2 gm in 50 mls @ 100 mls/hr 08/21/24 11:00 08/22/24 03:30 Maxipime 2 Gm/Ns 50 Ml IVPB Infused Q8H ARLEEN Infusion Vancomycin HCl 1,500 mg in 500 mls @ 250 mls/hr 08/22/24 18:00 Vancomycin 1,500 Mg/Ns 500 Ml IVPB Q12H ARLEEN Insulin Aspart 7 units 08/20/24 17:00 08/22/24 08:49 Insulin Aspart (*Bkc) 100 Units/Ml 0.067 units/kg (7 units) Not Given SUB-Q [facility] Insulin Glargine 21 units 08/20/24 21:00 08/21/24 20:50 Insulin Glargine (*Bkc) 100 Units/Ml 0.2 units/kg (21 units) 21 units SUB-Q Administration [facility] Losartan Potassium 50 mg 08/22/24 09:00 08/22/24 08:57 Losartan Potassium 50 Mg Tablet PO 50 mg DAILY ARLEEN Administration Metronidazole 500 mg 08/21/24 14:00 08/22/24 05:52 Metronidazole 500 Mg Tablet PO 500 mg Q8HR ARLEEN Administration Ondansetron HCl 4 mg 08/20/24 17:21 08/22/24 05:58 Ondansetron Inj 4 Mg/2 Ml Vial IV PUSH 4 mg Q6H PRN Administration Nausea And Vomiting Perflutren Lipid Microsphere 0 ml 08/21/24 14:00 Perflutren Lipid Microspheres 1.5 Ml Vial Diluted To 10 Ml Total Volume IV PUSH 08/24/24 14:00 ONCE PRN adequate visualization Protocol Radiology Results: ITS Impressions Ankle MRI 08/21/24 08:41 IMPRESSION: 1. Likely septic arthritis at the ankle and subtalar joints with draining sinus tract draining from the anterior subtalar joint/sinus Tarsi to the dorsolateral hindfoot. 2. Associated osteomyelitis most prominent at the anterior process of the c alcaneus also involving portions of the talus as detailed above. 3. Overlying myositis involving the intrinsic musculature at the dorsal midfoot with suggestion of tendinopathy and likely at least partial tears of the more superficial extensor digitorum longus tendons to the fifth and possibly fourth toes. 4. Complete tear and proximal retraction of the extensor hallucis longus and anterior tibial tendons, the former with likely associated septic tenosynovitis. 5. Chronic amputation of the second toe with suspicion for osteomyelitis at the distal diaphysis of the second metatarsal. 6. 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 7. Old healed fractures at the necks of the third and fourth metatarsals. Foot MRI 08/21/24 08:41 IMPRESSION: 1. Likely septic arthritis at the ankle and subtalar joints with draining sinus tract draining from the anterior subtalar joint/sinus Tarsi to the dorsolateral hindfoot. 2. Associated osteomyelitis most prominent at the anterior process of the calcaneus also involving portions of the talus as detailed above. 3. Overlying myositis involving the intrinsic musculature at the dorsal midfoot with suggestion of tendinopathy and likely at least partial tears of the more superficial extensor digitorum longus tendons to the fifth and possibly fourth toes. 4. Complete tear and proximal retraction of the extensor hallucis longus and anterior tibial tendons, the former with likely associated septic tenosynovitis. 5. Chronic amputation of the second toe with suspicion for osteomyelitis at the distal diaphysis of the second metatarsal. 6. 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 7. Old healed fractures at the necks of the third and fourth metatarsals. Labs Labs: Laboratory Results - last 24 hr 08/21/24 08/21/24 08/21/24 11:38 16:47 20:42 WBC RBC Hgb Hct MCV MCH MCHC RDW Plt Count MPV Immature Gran % (Auto) Neut % (Auto) Lymph % (Auto) [place] % (Auto) Eos % (Auto) Baso % (Auto) Lymph # (Auto) [place] # (Auto) Eos # (Auto) Baso # (Auto) Abs Immat Gran (auto) Absolute Neuts (auto) Absolute Nucleated RBC Nucleated RBC % Sodium Potassium Chloride Carbon Dioxide Anion Gap BUN Creatinine Estim Creat Clear Calc Estimated GFR Glucose POC Capillary Glucose 207 H 154 H 174 H Calcium Total Bilirubin AST ALT Alkaline Phosphatase Total Protein Albumin 08/22/24 08/22/24 05:52 08:28 WBC 7.9 RBC 3.89 L Hgb 10.3 L Hct 32.0 L MCV 82.3 MCH 26.5 MCHC 32.2 RDW 13.8 Plt Count 415 H MPV 8.7 Immature Gran % (Auto) 0.5 Neut % (Auto) 74.0 H Lymph % (Auto) 14.4 L [place] % (Auto) 10.1 H Eos % (Auto) 0.5 Baso % (Auto) 0.5 Lymph # (Auto) 1.13 [place] # (Auto) 0.8 H Eos # (Auto) 0.0 Baso # (Auto) 0.0 Abs Immat Gran (auto) 0.04 H Absolute Neuts (auto) 5.8 Absolute Nucleated RBC 0.000 Nucleated RBC % 0.0 Sodium 134 L Potassium 4.3 Chloride 101 Carbon Dioxide 28 Anion Gap 5 BUN 19 Creatinine 1.10 Estim Creat Clear Calc 90 Estimated GFR > 60 Glucose 164 H POC Capillary Glucose 144 H Calcium 8.4 Total Bilirubin 1.0 AST 16 L ALT 8 Alkaline Phosphatase 94 Total Protein 8.0 Albumin 3.3 L
--- NOTE | 2024-08-22 10:27 | P.PNIM_ITS ---
Progress Note: A&P Assessment and Plan (1) Osteomyelitis of right foot: Code(s): M86.9 - Osteomyelitis, unspecified Status: Acute Assessment and Plan: * This is a 48-year-old male who recently underwent left 5th ray amputation in 2020, recently admitted for right foot infection underwent right TMA of 2nd toe in June 08, 2024. He has been followed up by Wound Care since discharge. He return to ER on August 08 with right ankle pain. CT of the foot at that time showed soft tissue edema without her remain hand [place] fluid collection or gas within the soft tissues blood culture and wound culture were obtained which came back positive for MSSA. He has not followed up since the positive blood culture and had not been on antibiotics. He was [facility] yesterday where he presented for his routine wound care. Orthopedics evaluated the patient and noted wound getting worse as well as findings of positive blood culture recently which was not treated. He has also been feeling unwell and had some chills and night sweats. He also complained of right ankle pain that has been ongoing. * MR right ankle and MR right foot today showed: MPRESSION: 1. Likely septic arthritis at the ankle and subtalar joints with draining sinus tract draining from the anterior subtalar joint/sinus Tarsi to the dorsolateral hindfoot. 2. Associated osteomyelitis most prominent at the anterior process of the calcaneus also involving portions of the talus as detailed above. 3. Overlying myositis involving the intrinsic musculature at the dorsal midfoot with suggestion of tendinopathy and likely at least partial tears of the more superficial extensor digitorum longus tendons to the fifth and possibly fourth toes. 4. Complete tear and proximal retraction of the extensor hallucis longus and anterior tibial tendons, the former with likely associated septic tenosynovitis. 5. Chronic amputation of the second toe with suspicion for osteomyelitis at the distal diaphysis of the second metatarsal. 6. 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 7. Old healed fractures at the necks of the third and fourth metatarsals. * Patient started on Cefepime 2 gm IVPB q 8, Vancomycin 1,500 mg IVPB q 18, and Metronidiazole 500 mg PO q 8. * Daily dressing changes. * Orthopedic consulted. * Echo showed: Summary 1. Complete two-dimensional, color flow and Doppler transthoracic echocardiogram is performed. 2. LV size and wall thickness at upper limits of normal. Normal LV systolic function, ejection fraction about 60%. Grade 1 diastolic dysfunction. Normal RV size and systolic function. Mild left atrial enlargement. Normal mitral valve structure, trace MR. No hemodynamically significant aortic stenosis. Trace TR, RVSP 30 mmHg. * Repeated wound culture preliminary report showing gram positive cocci in clusters. * NPO for I&D of the right foot/ankle today at 5:30. * Blood cultures no growth to date. (2) Bacteremia: Code(s): R78.81 - Bacteremia Status: Acute Assessment and Plan: * 08/08/24 blood cultures grew Staphylococcus Aureus * Blood cultures repeated. * Vancomycin 1,500 mg IVPB q 18 (3) Acute right ankle pain: Code(s): M25.571 - Pain in right ankle and joints of right foot Status: Acute Assessment and Plan: * Acetaminophen 650 mg PO q 4 PRN. (4) Diabetes mellitus: Qualifiers: Diabetes mellitus complication detail: with other skin complication Diabetes mellitus complication status: with skin complications Diabetes mellitus vessel slagman insulin use: with vessel slagman use Diabetes mellitus type: type 2 Qualified Code(s): E11.628 - Type 2 diabetes mellitus with other skin compli cations; Z79.4 - kiosk sales representative (current) use of insulin Code(s): E11.9 - Type 2 diabetes mellitus without complications Status: Acute Assessment and Plan: * HgbA1c 8.8%. * Basal bolus insulin regimen. * Glargine 21 units subq qhs. (5) Insulin dependent diabetes mellitus: Status: Chronic Assessment and Plan: * Basal bolus insulin regimen. * Glargine 21 units subq qhs. (6) HTN (hypertension): Code(s): I10 - Essential (primary) hypertension Status: Acute Assessment and Plan: * Blood pressure medication losartan-HCTZ 50-12.5 mg PO daily. * BP 164/89 (7) Nausea: Code(s): R11.0 - Nausea Status: Acute Assessment and Plan: * Ondansetron 4 mg iv q 6 PRN. Subjective Date/time seen: 08/22/24 10:27 Interval history: Patient lying in bed. Patient denies pain at present. Patient reported nausea with vomiting early this morning but was able to tolerate breakfast this morning. Patient is now NPO for I&D of the right foot/ankle today. Patient denies chest pain, palpitations, headache, or dizziness. Review of Systems Review of Systems: All systems reviewed & are unremarkable except as noted in HPI and below Exam Const: General: no acute distress Resp: Effort & Inspection: normal respiratory effort Auscultation: clear to auscultation bilaterally Cardio: Rate: regular rate Rhythm: regular rhythm GI: GI Palp: Yes Soft to palpation Auscultation: normal bowel sounds Skin: Other: Per orthopedic note: Wound on the dorsal lateral aspect of the right foot measures 4 x 8.5 x 1.5 cm, 100% red/ pink wound bed with hyper granulated tissue noted. The wound probes 5 cm in to the midfoot and ankle. Increased drainage. No purulence however serosanguineous drainage with small amounts of white, clotted material noted. Additional wound at the side of the 2nd toe amputation measures 3.5 x 1 x 0.3 cm, 100% red/ pink wound bed with hyper granulated tissue. Unable to probe to bone. Mild malodorous. Neuro: Speech: normal speech Psych: Affect: normal affect Objective Data Vital Signs Vital Signs: Vital Signs - 24 hr 08/21/24 15:35 08/22/24 00:00 08/22/24 06:23 Temperature 98.6 F 98.4 F 98.6 F Pulse Rate 101 H 99 101 H Respiratory Rate 16 18 18 Blood Pressure 159/78 H 164/89 H 159/97 H Pulse Oximetry 98 99 100 Intake/Output Intake/Output: Intake & Output 08/19/24 08/20/24 08/21/24 08/22/24 23:59 23:59 23:59 23:59 Intake Total 3093 190 0705.0 Output Total 550 0 Balance 209 212 2562.0 Meds/Results Medications: Active Medications Generic Name Dose Route Start Last Admin Trade Name Freq PRN Reason Stop Dose Admin Acetaminophen 650 mg 08/20/24 12:16 Acetaminophen 325 Mg Tablet PO Q4H PRN Mild Pain (1-3) or Fever Dextrose 12.5 gm 08/20/24 12:22 Dextrose 50% 25 Gm/50 Ml Syringe IV PUSH PRN PRN Hypoglycemia Protocol Glucagon 1 mg 08/20/24 12:22 Glucagon For Inj 1 Mg Vial IM PRN PRN Hypoglycemia Protocol Glucose 15 gm 08/20/24 12:22 Glucose Oral Gel 15 Gm Of Glucse In 37.5 Gm Tube PO PRN PRN Hypoglycemia Protocol Hydrochlorothiazide 12.5 mg 08/22/24 09:00 08/22/24 08:57 Hydrochlorothiazide 12.5 Mg Capsule PO 12.5 mg DAILY ARLEEN Administration Sodium Chloride 1,000 mls @ 100 mls/hr 08/20/24 12:20 08/22/24 10:23 Normal Saline Iv IV CONT 0 mls/hr .Q10H ARLEEN Infusion Dextrose 1,000 mls @ 100 mls/hr 08/20/24 12:22 Dextrose 5% 1,000 Ml IVPB PRN PRN Hypoglycemia Protocol Cefepime HCl 2 gm in 50 mls @ 100 mls/hr 08/21/24 11:00 08/22/24 10:24 Maxipime 2 Gm/Ns 50 Ml IVPB 100 mls/hr Q8H ARLEEN Administration Vancomycin HCl 1,500 mg in 500 mls @ 250 mls/hr 08/22/24 18:00 Vancomycin 1,500 Mg/Ns 500 Ml IVPB Q12H ARLEEN Insulin Aspart 7 units 08/20/24 17:00 08/22/24 08:49 Insulin Aspart (*Bkc) 100 Units/Ml 0.067 units/kg (7 units) Not Given SUB-Q [facility] Insulin Glargine 21 units 08/20/24 21:00 08/21/24 20:50 Insulin Glargine (*Bkc) 100 Units/Ml 0.2 units/kg (21 units) 21 units SUB-Q Administration [facility] Losartan Potassium 50 mg 08/22/24 09:00 08/22/24 08:57 Losartan Potassium 50 Mg Tablet PO 50 mg DAILY ARLEEN Administration Metronidazole 500 mg 08/21/24 14:00 08/22/24 05:52 Metronidazole 500 Mg Tablet PO 500 mg Q8HR ARLEEN Administration Ondansetron HCl 4 mg 08/20/24 17:21 08/22/24 05:58 Ondansetron Inj 4 Mg/2 Ml Vial IV PUSH 4 mg Q6H PRN Administration Nausea And Vomiting Perflutren Lipid Microsphere 0 ml 08/21/24 14:00 Perflutren Lipid Microspheres 1.5 Ml Vial Diluted To 10 Ml Total Volume IV PUSH 08/24/24 14:00 ONCE PRN adequate visualization Protocol Radiology Results: ITS Impressions Ankle MRI 08/21/24 08:41 IMPRESSION: 1. Likely septic arthritis at the ankle and subtalar joints with draining sinus tract draining from the anterior subtalar joint/sinus Tarsi to the dorsolateral hindfoot. 2. Associated osteomyelitis most prominent at the anterior process of the calcaneus also involving portions of the talus as detailed above. 3. Overlying myositis involving the intrinsic musculature at the dorsal midfoot with suggestion of tendinopathy and likely at least partial tears of the more superficial extensor digitorum longus tendons to the fifth and possibly fourth toes. 4. Complete tear and proximal retraction of the extensor hallucis longus and anterior tibial tendons, the former with likely associated septic tenosynovitis. 5. Chronic amputation of the second toe with suspicion for osteomyelitis at the distal diaphysis of the second metatarsal. 6. 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 7. Old healed fractures at the necks of the third and fourth metatarsals. Foot MRI 08/21/24 08:41 IMPRESSION: 1. Likely septic arthritis at the ankle and subtalar joints with draining sinus tract draining from the anterior subtalar joint/sinus Tarsi to the dorsolateral hindfoot. 2. Associated osteomyelitis most prominent at the anterior process of the calcaneus also involving portions of the talus as detailed above. 3. Overlying myositis involving the intrinsic musculature at the dorsal midfoot with suggestion of tendinopathy and likely at least partial tears of the more superficial extensor digitorum longus tendons to the fifth and possibly fourth toes. 4. Complete tear and proximal retraction of the extensor hallucis longus and anterior tibial tendons, the former with likely associated septic tenosynovitis. 5. Chronic amputation of the second toe with suspicion for osteomyelitis at the distal diaphysis of the second metatarsal. 6. 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 7. Old healed fractures at the necks of the third and fourth metatarsals. Labs Labs: Laboratory Results - last 24 hr 08/21/24 08/21/24 08/21/24 11:38 16:47 20:42 WBC RBC Hgb Hct MCV MCH MCHC RDW Plt Count MPV Immature Gran % (Auto) Neut % (Auto) Lymph % (Auto) [place] % (Auto) Eos % (Auto) Baso % (Auto) Lymph # (Auto) [place] # (Auto) Eos # (Auto) Baso # (Auto) Abs Immat Gran (auto) Absolute Neuts (auto) Absolute Nucleated RBC Nucleated RBC % Sodium Potassium Chloride Carbon Dioxide Anion Gap BUN Creatinine Estim Creat Clear Calc Estimated GFR Glucose POC Capillary Glucose 207 H 154 H 174 H Calcium Total Bilirubin AST ALT Alkaline Phosphatase Total Protein Albumin 08/22/24 08/22/24 05:52 08:28 WBC 7.9 RBC 3.89 L Hgb 10.3 L Hct 32.0 L MCV 82.3 MCH 26.5 MCHC 32.2 RDW 13.8 Plt Count 415 H MPV 8.7 Immature Gran % (Auto) 0.5 Neut % (Auto) 74.0 H Lymph % (Auto) 14.4 L [place] % (Auto) 10.1 H Eos % (Auto) 0.5 Baso % (Auto) 0.5 Lymph # (Auto) 1.13 [place] # (Auto) 0.8 H Eos # (Auto) 0.0 Baso # (Auto) 0.0 Abs Immat Gran (auto) 0.04 H Absolute Neuts (auto) 5.8 Absolute Nucleated RBC 0.000 Nucleated RBC % 0.0 Sodium 134 L Potassium 4.3 Chloride 101 Carbon Dioxide 28 Anion Gap 5 BUN 19 Creatinine 1.10 Estim Creat Clear Calc 90 Estimated GFR > 60 Glucose 164 H POC Capillary Glucose 144 H Calcium 8.4 Total Bilirubin 1.0 AST 16 L ALT 8 Alkaline Phosphatase 94 Total Protein 8.0 Albumin 3.3 L Quality VTE Prophylaxis VTE prophylaxis: mechanical ordered
[2024-08-22 11:54] LABS: Glucose Point of Care 171 mg/dl (65-105)
--- NOTE | 2024-08-22 12:57 | PC.NURSE ---
Report called to Norma RUELAS in Preop.
[2024-08-22 14:00] VITALS: BP 162/93; PULSE 94; RESP 18; TEMP 36.8; O2SAT 97
--- NOTE | 2024-08-22 15:05 | PC.NURSE ---
To OR via bed. Verbal report given to Wale RUELAS. Voiding without difficulty.
[2024-08-22 15:23] LABS: Glucose Point of Care 137 mg/dl (65-105)
--- NOTE | 2024-08-22 15:27 | WPDHPUPDATE1 ---
History and Physical Update Update Date/Time: 08/22/24 15:27 History and Physical has been reviewed, including an updated exam of the patient. There are NO changes in the patient's condition. Risks, benefits, and alternatives have been discussed and questions answered. Patient agrees to proceed with procedure.
[2024-08-22 15:30] VITALS: BP 149/90; PULSE 98; RESP 14; TEMP 37.2; O2SAT 99
--- NOTE | 2024-08-22 17:00 | PC.NURSE ---
Returned from Pacu via bed. Surgery cancelled on .
[2024-08-22 17:09] LABS: Glucose Point of Care 144 mg/dl (65-105)
[2024-08-22] MEDS: ACETAMINOPHEN 325 MG TABLET 650 MG PO (19:17)
[2024-08-22 20:31] VITALS: BP 157/88; PULSE 99; RESP 20; TEMP 37.1; O2SAT 98
[2024-08-22 21:36] LABS: Glucose Point of Care 205 mg/dl (65-105)
[2024-08-23] VITALS (13 sets, daily range): BP systolic 128–170; BP diastolic 75–95; PULSE 67–111; RESP 14–20; TEMP 36.3–37; O2SAT 95–100
[2024-08-23] MEDS: CEFEPIME 2 GM/NS 50 ML 2 GM/50 ML BAG IVPB ×3 (02:41→19:31)
[2024-08-23] MEDS: SODIUM CHLORIDE 0.9% IV 1,000 ML 100 ML IV CONT (06:13)
[2024-08-23 06:18] LABS: Basophils Percent Auto 0.6 % (0.2-1.2); Eosinophils Absolute Auto 0.2 K/mm3 (0-0.3); Eosinophils Percent Auto 2.5 % (0-4.4); Hematocrit 32.3 % (42.0-52.0); Hemoglobin 10.4 g/dL (14.0-18.0); Immature Granulocyte Absolute 0.03 K/mm3 (0.00-0.031); Immature Granulocyte Percent A 0.4 % (0-0.5); Lymphocytes Percent Auto 21.8 % (18.3-44.2); Mean Corpuscular HGB Conc 32.2 g/dl (32-36); Mean Corpuscular Hemoglobin 26.4 pg (26-34); Mean Platelet Volume 8.7 fl (7.4-10.4); Monocytes Absolute Auto 0.7 K/mm3 (0.1-0.6); Monocytes Percent Auto 10.2 % (2.6-8.5); Neutrophils Absolute Auto 4.4 K/mm3 (1.3-6.7); Neutrophils Percent Auto 64.5 % (45.5-73.1); Platelet Count Result 408 k/mm3 (150-375); Red Blood Count 3.94 M/mm3 (4.6-6.20); Red Cell Distribution Width 13.8 % (11.5-14.5); White Blood Count 6.9 K/mm3 (4.5-10.0)
[2024-08-23 06:31] LABS: Alanine Aminotransferase 9 U/L (6-50); Albumin Level 3.3 g/dL (3.5-5.1); Alkaline Phosphatase 89 U/L (38-126); Anion Gap 7 mmol/L (4-12); Aspartate Amino Transferase 17 U/L (17-59); Blood Urea Nitrogen 15 mg/dL (9-20); Calcium 8.4 mg/dL (8.4-10.2); Carbon Dioxide 28 mmol/L (22-30); Chloride 100 mmol/L (98-107); Estimated CRCL calculation 99 ml/min; Estimated Glomerular Filt Rate > 60; Glucose 156 mg/dL (65-110); Potassium 3.9 mmol/L (3.4-5.0); Sodium 135 mmol/L (137-145)
[2024-08-23 06:42] LABS: Vancomycin Trough 12.2 ug/mL (10.0-20.0)
--- NOTE | 2024-08-23 07:08 | WPDHPUPDATE1 ---
History and Physical Update Update Date/Time: 08/23/24 07:08 History and Physical has been reviewed, including an updated exam of the patient. There are NO changes in the patient's condition. Risks, benefits, and alternatives have been discussed and questions answered. Patient agrees to proceed with procedure.
[2024-08-23 08:34] LABS: Glucose Point of Care 167 mg/dl (65-105)
[2024-08-23] MEDS: VANCOMYCIN 2,000 MG/NS 500 ML 2,000 MG/500 ML BAG 250 MG IVPB (08:47)
[2024-08-23] MEDS: LACTATED RINGERS 1,000 ML 30 ML IV CONT (09:00)
--- NOTE | 2024-08-23 09:28 | WPDANESEPPF ---
Anes - Initial Pre Proc Eval Procedure: Operation Date: 08/22/24 17:30 Proposed Procedures p Right Ankle Washout, Application Of Wound Vac - Benitez Reinoso MD Operation Date: 08/23/24 10:30 Proposed Procedures p Right Ankle Washout, Application Of Wound Vac - Benitez Reinoso MD Date/Time: 08/23/24 09:28 Surgeon: Jean-Pierre Barreto MD Pre Op Diagnosis: Bacteremia Patient Data Age: 48 Gender: M Height: 1.83 m Weight: 107.3 kg Last Vital Signs Temp 98.1 F 08/23/24 08:35 Pulse 99 08/23/24 08:35 Resp 20 08/23/24 08:35 BP 163/91 H 08/23/24 08:35 Pulse Ox 99 08/23/24 08:35 O2 Del Method Room Air 08/22/24 15:30 Allergies Allergy/AdvReac Type Severity Reaction Status Date / Time No Known Allergies Allergy Verified 08/22/24 15:44 Home Medications Medication Instructions Recorded Confirmed Type losartan 50 mg-hydrochlorothiazide 1 tablet PO DAILY #90 tabs 06/13/24 08/20/24 Rx 12.5 mg tablet insulin human U-100 NPH-regulr 15 unit subcut BID 08/08/24 08/20/24 History 70-30 mix 100 unit/mL subcutaneous susp (Novolin 70/30 U-100 Insulin) metformin 500 mg tablet,extended 500 mg PO BID 08/08/24 08/20/24 History release 24 hr semaglutide 0.25 mg or 0.5 mg (2 0.25 mg subcut WEEKLY 08/08/24 08/20/24 History mg/3 mL) subcutaneous pen injector (Ozempic) Laboratory Tests 08/22/24 08/22/24 08/22/24 11:51 15:19 17:05 WBC RBC Hgb Hct MCV MCH MCHC RDW Plt Count MPV Immature Gran % (Auto) Neut % (Auto) Lymph % (Auto) Bertie % (Auto) Eos % (Auto) Baso % (Auto) Lymph # (Auto) Bertie # (Auto) Eos # (Auto) Baso # (Auto) Abs Immat Gran (auto) Absolute Neuts (auto) Absolute Nucleated RBC Nucleated RBC % Sodium Potassium Chloride Carbon Dioxide Anion Gap BUN Creatinine Estim Creat Clear Calc Estimated GFR Glucose POC Capillary Glucose 171 H mg/dl 137 H mg/dl 144 H mg/dl (65-105) (65-105) (65-105) Calcium Total Bilirubin AST ALT Alkaline Phosphatase Total Protein Albumin Vancomycin Trough 08/22/24 08/23/24 08/23/24 20:30 05:46 08:28 WBC 6.9 K/mm3 (4.5-10.0) RBC 3.94 L M/mm3 (4.6-6.20) Hgb 10.4 L g/dL (14.0-18.0) Hct 32.3 L % (42.0-52.0) MCV 82.0 fl (80-100) MCH 26.4 pg (26-34) MCHC 32.2 g/dl (32-36) RDW 13.8 % (11.5-14.5) Plt Count 408 H k/mm3 (150-375) MPV 8.7 fl (7.4-10.4) Immature Gran % (Auto) 0.4 % (0-0.5) Neut % (Auto) 64.5 % (45.5-73.1) Lymph % (Auto) 21.8 % (18.3-44.2) Bertie % (Auto) 10.2 H % (2.6-8.5) Eos % (Auto) 2.5 % (0-4.4) Baso % (Auto) 0.6 % (0.2-1.2) Lymph # (Auto) 1.50 K/mm3 (0.9-3.2) Bertie # (Auto) 0.7 H K/mm3 (0.1-0.6) Eos # (Auto) 0.2 K/mm3 (0-0.3) Baso # (Auto) 0.0 K/mm3 (0.0-0.1) Abs Immat Gran (auto) 0.03 K/mm3 (0.00-0.031) Absolute Neuts (auto) 4.4 K/mm3 (1.3-6.7) Absolute Nucleated RBC 0.000 K/mm3 (0.0-0.012) Nucleated RBC % 0.0 % (0.0-0.2) Sodium 135 L mmol/L (137-145) Potassium 3.9 mmol/L (3.4-5.0) Chloride 100 mmol/L (98-107) Carbon Dioxide 28 mmol/L (22-30) Anion Gap 7 mmol/L (4-12) BUN 15 mg/dL (9-20) Creatinine 1.00 mg/dL (0.7-1.3) Estim Creat Clear Calc 99 ml/min Estimated GFR > 60 (59 - ) Glucose 156 H mg/dL (65-110) POC Capillary Glucose 205 H mg/dl 167 H mg/dl (65-105) (65-105) Calcium 8.4 mg/dL (8.4-10.2) Total Bilirubin 1.0 mg/dL (0.2-1.3) AST 17 U/L (17-59) ALT 9 U/L (6-50) Alkaline Phosphatase 89 U/L (38-126) Total Protein 8.0 g/dL (6.3-8.2) Albumin 3.3 L g/dL (3.5-5.1) Vancomycin Trough 12.2 ug/mL (10.0-20.0) Patient hx anesthesia problems: none Family hx anesthesia problems: none Results Review: All pre-operative results and documents have been reviewed as part of the pre-operative evaluation. [facility] Past Medical History Medical History Bacteremia Diabetic peripheral neuropathy Erectile dysfunction associated with type 2 diabetes mellitus Glaucoma Obesity (BMI 30.0-34.9) Osteomyelitis of toe of left foot (2020) Left 5th toe Type 2 diabetes mellitus (~04/2021) Officially diagnosed in 2020 but patient already had a foot wound and osteomyelitis of the left toe at that time Ulcer of left fifth toe due to diabetes mellitus (04/2021) With associated cellulitis Surgical History Surgical History History of amputation of toe Left 5th toe History of ankle surgery Family History Family History Father Acute myocardial infarction, Onset Age: 62 Heart disease Tobacco use Mother , She in her 70s Brain cancer Lung cancer Carcinoma of colon Grandparent Diabetes mellitus Other Arthritis Hypertension Neuropathy Stomach cancer Social History Social History (Reviewed 08/23/24 @ 09:28 by ROMAN Dubose Social History: Patient is single and lives alone. He states he has never been . Patient works for a local [employer]. He has his (non biologic) son part-time. He is a lifelong nonsmoker. He denies history of significant alcohol use or illicit substance use. Code status: DNR/DNI (per patient request) Surrogate decision maker: Sole Farnsworth (niece) Smoking status: Never smoker Second hand tobacco smoke exposure: No Alcohol intake: never Substance use: never Substance use type: does not use Do You Feel Safe in your Home?: Yes Lack of Transportation: No Lack of Food: Never True Current Housing: I Have Housing Concerned About Future Housing: No Difficulty Paying Gas/Electric Bills: No Difficulty Paying for Meds: No Currently Unemployed: No Education: High School Diploma/GED Difficulty w/ Childcare or Family Care: No Living arrangements: alone Additional living arrangements comments: 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 Occupation/Education: occupation Additional occupation/education comments: [employer] Gender identity (if verbalized by the patient): Male Spiritual care concerns: No Anes - Eval Final PreProcedure Day of Procedure 08/23/24 09:28 Patient weight: obese Heart: regular rate and rhythm Lungs: clear to auscultation Airway: Mallampati scale class II Neurological: alert and oriented Last oral intake: >/= 8 hours ASA classification: III Emergent: no Anesthetic plan: proceed Anesthesia type and monitoring: general LMA and standard monitoring Results Review: All pre-operative results and documents have been reviewed as part of the pre-operative evaluation. DM, pt now quite well controlled. FSBS 164 in preop area. Off ozempic for 9 days. Overall good functional status prior to this infection, walking 1-2 fos, no cp or sob. Informed Consent: The patient's anesthetic plan and its attendant risks and benefits were discussed with the patient/family/POA. Questions were solicited and answers provided to the satisfaction of the patient/family/POA.
[2024-08-23 09:29] LABS: Glucose Point of Care 164 mg/dl (65-105)
--- NOTE | 2024-08-23 10:56 | W.PM.PROC2 ---
Procedure Note - Detailed Date of Procedure 08/23/24 Pre-op Diagnosis RIGHT ANKLE SEPSIS, RIGHT FOOT SEPSIS, OSTEOMYELITIS Post-op Diagnosis Same Procedure Performed INCISION AND DRAINAGE WITH IRRIGATION AND DEBRIDEMENT RIGHT FOOT AND ANKLE JOINT WITH WOUND VAC PLACEMENT Surgeon Benitez Reinoso MD Anesthesia General Indications RIGHT SEPTIC ANKLE AND FOOT Description of Procedure THE PATIENT WAS TAKEN TO THE OPERATING ROOM IN STABLE CONDITION. THE RIGHT LEG WAS PREPPED AND DRAPED STERILE FROM THE TOES TO THE CALF. THE OLD INCISION WAS DRAINING CLOUDY FLUID AT ITS MOST PROXIMAL EDGE. A HEMOSTAT WAS USED TO BLUNT DISSECT THROUGH THE WOUND. PURULENT FLUID WAS DRAINING FROM THE MID FOOT AT THE LEVEL OF THE TARSAL METATARSAL JOINT OF OVER THE 3RD AND 4TH RAY. AN INCISION WAS EXTENDED PROXIMALLY OVER THE LATERAL MID FOOT TO THE LEVEL OF THE ANKLE. DISSECTION CONTINUED UNTIL THE TALUS AND THE ANKLE JOINT WERE EXPOSED. THE ANKLE CAPSULE WAS INCISED. PURULENT FLUID WAS DRAINING FROM THE ANKLE JOINT. A CULTURE WAS TAKEN. EXCISIONAL DEBRIDEMENT OF DEVITALIZED TISSUE WAS PREFORMED AROUND THE ANKLE AND SUBTALAR JOINT. THERE WAS A LARGE AMOUNT OF SYNOVIAL TISSUE AND CAPSULE REMOVED THROUGH EXCISIONAL DEBRIDEMENT OF THE TALUS AND ANKLE REGION. NEXT, USING BLUNT DISSECTION A HEMOSTAT WAS USED TO UNDERMINE THE THE TISSUE UNTIL THE 2ND METATARSAL STUMP WAS REACHED DECOMPRESSING THAT REGION WELL. THERE WAS PURULENCE ALSO DRAINING FROM THAT AREA OF THE FOOT. THE PLANTAR INCISION HAD HEALED WELL. THERE WAS NO DEBRIDEMENT REQUIRED IN THAT REGION. ONCE A THOUGH DEBRIDEMENT WAS PREFORMED. IRRIGATION USING STERILE BETADINE AND WATER WAS PREFORMED UNTIL THE WOUND LOOK CLEAN AND THERE GOOD BLEEDING TISSUE. A SECOND LOOK AT THE TISSUE WAS PREFORMED. THE WAS GOOD BLEEDING TISSUE AND NO OBVIOUS PURULENCE FROM THE ANKLE JOINT, SUB TALAR JOINT AND MID FOOT REGION WERE OBSERVED. NEXT A WOUND VAC WAS PLACED IN TO THE REGION AND THERE WAS GOOD VAC FUNCTION WITH NO LEAKS. THE PATIENT WAS PLACED IN A CAM WALKER. HE WAS EXTUBATED AND SENT TO RECOVERY ROOM IN STABLE CONDITION Estimated Blood Loss 50 Urine Output 0 Packing Yes (WOUND VAC) Pathology Other (CULTURES SENT OF ANKLE JOINT) Complications No immediate complications Condition Stable Disposition PACU
[2024-08-23 11:14] LABS: Glucose Point of Care 149 mg/dl (65-105)
[2024-08-23 12:13] LABS: Glucose Point of Care 139 mg/dl (65-105)
[2024-08-23] MEDS: ONDANSETRON INJ 4 MG/2 ML VIAL IV PUSH (12:29)
[2024-08-23] MEDS: LOSARTAN POTASSIUM 50 MG TABLET PO (12:30)
[2024-08-23] MEDS: hydroCHLOROthiazide 12.5 MG CAPSULE PO (12:30)
--- NOTE | 2024-08-23 12:47 | P.PNIM_ITS ---
Progress Note: A&P Assessment and Plan (1) Osteomyelitis of right foot: Code(s): M86.9 - Osteomyelitis, unspecified Status: Acute Assessment and Plan: * This is a 48-year-old male who recently underwent left 5th ray amputation in 2020, recently admitted for right foot infection underwent right TMA of 2nd toe in June 08, 2024. He has been followed up by Wound Care since discharge. He return to ER on August 08 with right ankle pain. CT of the foot at that time showed soft tissue edema without her remain hand Del Angel fluid collection or gas within the soft tissues blood culture and wound culture were obtained which came back positive for MSSA. He has not followed up since the positive blood culture and had not been on antibiotics. [facility] was [facility] where he presented for his routine wound care. Orthopedics evaluated the patient and noted wound getting worse as well as findings of positive blood culture recently which was not treated. He has also been feeling unwell and had some chills and night sweats. He also complained of right ankle pain that has been ongoing. * MR right ankle and MR right foot today showed: MPRESSION: 1. Likely septic arthritis at the ankle and subtalar joints with draining sinus tract draining from the anterior subtalar joint/sinus Tarsi to the dorsolateral hindfoot. 2. Associated osteomyelitis most prominent at the anterior process of the calcaneus also involving portions of the talus as detailed above. 3. Overlying myositis involving the intrinsic musculature at the dorsal midfoot with suggestion of tendinopathy and likely at least partial tears of the more superficial extensor digitorum longus tendons to the fifth and possibly fourth toes. 4. Complete tear and proximal retraction of the extensor hallucis longus and anterior tibial tendons, the former with likely associated septic tenosynovitis. 5. Chronic amputation of the second toe with suspicion for osteomyelitis at the distal diaphysis of the second metatarsal. 6. 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 7. Old healed fractures at the necks of the third and fourth metatarsals. * Patient started on Cefepime 2 gm IVPB q 8, Vancomycin 1,500 mg IVPB q 12, and Metronidiazole 500 mg PO q 8. * Daily dressing changes. * Orthopedic consulted. * Echo showed: Summary 1. Complete two-dimensional, color flow and Doppler transthoracic echocardiogram is performed. 2. LV size and wall thickness at upper limits of normal. Normal LV systolic function, ejection fraction about 60%. Grade 1 diastolic dysfunction. Normal RV size and systolic function. Mild left atrial enlargement. Normal mitral valve structure, trace MR. No hemodynamically significant aortic stenosis. Trace TR, RVSP 30 mmHg. * Repeated wound culture preliminary report showing gram positive cocci in clusters. * I&D of the right foot/ankle today completed. Right lower extremity wrapped with gauze and wound vac in place. Boot to right lower extremity in place. Bloody drainage from wound vac. No drainage noted on dressing. * Blood cultures grew Staphylococcus Aureus. (2) Bacteremia: Code(s): R78.81 - Bacteremia Status: Acute Assessment and Plan: * 08/08/24 blood cultures grew Staphylococcus Aureus * 08/21/24 Blood cultures grew Staphylococcus Aureus * Vancomycin 1,500 mg IVPB q 12 (3) Acute right ankle pain: Code(s): M25.571 - Pain in right ankle and joints of right foot Status: Acute Assessment and Plan: * Acetaminophen 650 mg PO q 4 PRN. (4) Diabetes mellitus: Qualifiers: Diabetes mellitus complication detail: with other skin complication Diabetes mellitus complication status: with skin complications Diabetes mellitus intermediate insulin use: with watermelon inspector use Diabetes mellitus type: type 2 Qualified Code(s): E11.628 - Type 2 diabetes mellitus with other skin complications; Z79.4 - watermelon inspector (current) use of insulin Code(s): E11.9 - Type 2 diabetes mellitus without complications Status: Acute Assessment and Plan: * HgbA1c 8.8%. * Basal bolus insulin regimen. * Glargine 21 units subq qhs. (5) Insulin dependent diabetes mellitus: Status: Chronic Assessment and Plan: * Basal bolus insulin regimen. * Glargine 21 units subq qhs. (6) HTN (hypertension): Code(s): I10 - Essential (primary) hypertension Status: Acute Assessment and Plan: * Blood pressure medication losartan-HCTZ 50-12.5 mg PO daily. * BP 130/84 (7) Nausea: Code(s): R11.0 - Nausea Status: Acute Assessment and Plan: * Ondansetron 4 mg iv q 6 PRN. Subjective Date/time seen: 08/23/24 12:47 Interval history: Patient lying in bed. Patient denies pain, nausea, vomiting, or shortness of breath. Patient was finishing up eating tray when entered room. Patient had I&D of right foot/ankle with wound vac placed today. Review of Systems Review of Systems: All systems reviewed & are unremarkable except as noted in HPI and below Exam Const: General: comfortable and no acute distress Resp: Effort & Inspection: normal respiratory effort Auscultation: clear to auscultation bilaterally Cardio: Rate: regular rate Rhythm: regular rhythm GI: GI Palp: Yes Soft to palpation Auscultation: normal bowel sounds Skin: Other: Right lower extremity wrapped with gauze and wound vac in place. Boot to right lower extremity in place. Bloody drainage from wound vac. No drainage noted on dressing. Neuro: Speech: normal speech Psych: Affect: normal affect Objective Data Vital Signs Vital Signs: Vital Signs - 24 hr 08/22/24 14:00 08/22/24 15:30 08/22/24 20:31 Temperature 98.3 F 98.9 F 98.8 F Pulse Rate 94 98 99 Respiratory Rate 18 14 20 Blood Pressure 162/93 H 149/90 H 157/88 H Pulse Oximetry 97 99 98 Oxygen Delivery Room Air Oxygen Flow Rate 08/23/24 05:36 08/23/24 08:35 08/23/24 09:31 Temperature 98.2 F 98.1 F 97.4 F L Pulse Rate 94 99 95 Respiratory Rate 20 20 14 Blood Pressure 170/80 H 163/91 H 154/92 H Pulse Oximetry 99 99 100 Oxygen Delivery Room Air Oxygen Flow Rate 08/23/24 10:55 08/23/24 11:15 08/23/24 11:25 Temperature 98.6 F Pulse Rate 96 92 Respiratory Rate 18 14 Blood Pressure 130/90 141/94 H Pulse Oximetry 100 97 Oxygen Delivery Simple Face Mask Room Air Room Air Oxygen Flow Rate 6 08/23/24 11:40 08/23/24 11:10 08/23/24 08:50 Temperature Pulse Rate 92 93 Respiratory Rate 18 14 Blood Pressure 148/93 H 129/89 Pulse Oximetry 95 100 Oxygen Delivery Room Air Simple Face Mask Room Air Oxygen Flow Rate 6 08/23/24 11:50 Temperature 98.6 F Pulse Rate 94 Respiratory Rate 18 Blood Pressure 161/95 H Pulse Oximetry 98 Oxygen Delivery Oxygen Flow Rate Intake/Output Intake/Output: Intake & Output 08/20/24 08/21/24 08/22/24 08/23/24 23:59 23:59 23:59 23:59 Intake Total 7421 649 0868.4 1105 Output Total 550 0 0 Balance 019 178 5079.4 1105 Meds/Results Medications: Active Medications Generic Name Dose Route Start Last Admin Trade Name Freq PRN Reason Stop Dose Admin Acetaminophen 650 mg 08/20/24 12:16 08/22/24 19:17 Acetaminophen 325 Mg Tablet PO 650 mg Q4H PRN Administration Mild Pain (1-3) or Fever Dextrose 12.5 gm 08/20/24 12:22 Dextrose 50% 25 Gm/50 Ml Syringe IV PUSH PRN PRN Hypoglycemia Protocol Glucagon 1 mg 08/20/24 12:22 Glucagon For Inj 1 Mg Vial IM PRN PRN Hypoglycemia Protocol Glucose 15 gm 08/20/24 12:22 Glucose Oral Gel 15 Gm Of Glucse In 37.5 Gm Tube PO PRN PRN Hypoglycemia Protocol Hydrochlorothiazide 12.5 mg 08/22/24 09:00 08/23/24 12:30 Hydrochlorothiazide 12.5 Mg Capsule PO 12.5 mg DAILY ARLEEN Administration Sodium Chloride 1,000 mls @ 100 mls/hr 08/20/24 12:20 08/23/24 06:13 Normal Saline Iv IV CONT 100 mls/hr .Q10H ARLEEN Administration Dextrose 1,000 mls @ 100 mls/hr 08/20/24 12:22 Dextrose 5% 1,000 Ml IVPB PRN PRN Hypoglycemia Protocol Cefepime HCl 2 gm in 50 mls @ 100 mls/hr 08/21/24 11:00 08/23/24 12:33 Maxipime 2 Gm/Ns 50 Ml IVPB 100 mls/hr Q8H ARLEEN Administration Vancomycin HCl 2,000 mg in 500 mls @ 250 mls/hr 08/23/24 08:00 08/23/24 11:17 Vancomycin 2,000 Mg/Ns 500 Ml IVPB Infused Q12H ARLEEN Infusion Lactated Ringer's 1,000 mls @ 30 mls/hr 08/23/24 08:35 08/23/24 11:45 Lr - Lactated Ringers Iv IV CONT Infused .Q24H ARLEEN Infusion Lactated Ringer's 1,000 mls @ 30 mls/hr 08/23/24 11:50 Lr - Lactated Ringers Iv IV CONT .Q24H [facility] Lactated Ringer's 1,000 mls @ 30 mls/hr 08/23/24 11:50 Lr - Lactated Ringers Iv IV CONT .Q24H [facility] Insulin Aspart 7 units 08/20/24 17:00 08/23/24 12:34 Insulin Aspart (*Bkc) 100 Units/Ml 0.067 units/kg (7 units) Not Given SUB-Q TIDWM [facility] Insulin Glargine 21 units 08/20/24 21:00 08/22/24 21:48 Insulin Glargine (*Bkc) 100 Units/Ml 0.2 units/kg (21 units) Not Given SUB-Q HS [facility] Insulin Human Isoph/Insulin Regular 15 units 08/23/24 17:00 Insulin Human Isophan/Regular 70/30 (*Bkc) 100 Units/Ml SUB-Q BIDWM [facility] Losartan Potassium 50 mg 08/22/24 09:00 08/23/24 12:30 Losartan Potassium 50 Mg Tablet PO 50 mg DAILY [facility] Administration Metformin HCl 500 mg 08/23/24 17:00 Metformin Hcl Xr 500 Mg Tab.Sr.24h PO BID [facility] Metronidazole 500 mg 08/21/24 14:00 08/23/24 07:44 Metronidazole 500 Mg Tablet PO Not Given Q8HR [facility] Miscellaneous Information 0 each 08/23/24 00:01 Semaglutide (Ozempic) Is Nonformulary - Can Patient Use From Home? XX 09/22/24 00:00 CLARIFY [facility] Morphine Sulfate 2 mg 08/23/24 11:50 Morphine Sulfate Inj (*Crx) 10 Mg/Ml Amp IV PUSH Q5M PRN Pain Non-Formulary Medication 0.25 mg 08/30/24 09:00 Semaglutide [Ozempic] SUB-Q 09/29/24 08:59 WEEKLY [facility] Ondansetron HCl 4 mg 08/20/24 17:21 08/23/24 12:29 Ondansetron Inj 4 Mg/2 Ml Vial IV PUSH 4 mg Q6H PRN Administration Nausea And Vomiting Ondansetron HCl 4 mg 08/23/24 11:50 Ondansetron Inj 4 Mg/2 Ml Vial IV PUSH ONCE PRN Nausea Perflutren Lipid Microsphere 0 ml 08/21/24 14:00 Perflutren Lipid Microspheres 1.5 Ml Vial Diluted To 10 Ml Total Volume IV PUSH 08/24/24 14:00 ONCE PRN adequate visualization Protocol Radiology Results: ITS Impressions Ankle MRI 08/21/24 08:41 IMPRESSION: 1. Likely septic arthritis at the ankle and subtalar joints with draining sinus tract draining from the anterior subtalar joint/sinus Tarsi to the dorsolateral hindfoot. 2. Associated osteomyelitis most prominent at the anterior process of the calcaneus also involving portions of the talus as detailed above. 3. Overlying myositis involving the intrinsic musculature at the dorsal midfoot with suggestion of tendinopathy and likely at least partial tears of the more superficial extensor digitorum longus tendons to the fifth and possibly fourth toes. 4. Complete tear and proximal retraction of the extensor hallucis longus and anterior tibial tendons, the former with likely associated septic tenosynovitis. 5. Chronic amputation of the second toe with suspicion for osteomyelitis at the distal diaphysis of the second metatarsal. 6. 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 7. Old healed fractures at the necks of the third and fourth metatarsals. Foot MRI 08/21/24 08:41 IMPRESSION: 1. Likely septic arthritis at the ankle and subtalar joints with draining sinus tract draining from the anterior subtalar joint/sinus Tarsi to the dorsolateral hindfoot. 2. Associated osteomyelitis most prominent at the anterior process of the calcaneus also involving portions of the talus as detailed above. 3. Overlying myositis involving the intrinsic musculature at the dorsal midfoot with suggestion of tendinopathy and likely at least partial tears of the more superficial extensor digitorum longus tendons to the fifth and possibly fourth toes. 4. Complete tear and proximal retraction of the extensor hallucis longus and anterior tibial tendons, the former with likely associated septic tenosynovitis. 5. Chronic amputation of the second toe with suspicion for osteomyelitis at the distal diaphysis of the second metatarsal. 6. 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 7. Old healed fractures at the necks of the third and fourth metatarsals. Labs Labs: Laboratory Results - last 24 hr 08/22/24 08/22/24 08/22/24 15:19 17:05 20:30 WBC RBC Hgb Hct MCV MCH MCHC RDW Plt Count MPV Immature Gran % (Auto) Neut % (Auto) Lymph % (Auto) Emanuel % (Auto) Eos % (Auto) Baso % (Auto) Lymph # (Auto) Emanuel # (Auto) Eos # (Auto) Baso # (Auto) Abs Immat Gran (auto) Absolute Neuts (auto) Absolute Nucleated RBC Nucleated RBC % Sodium Potassium Chloride Carbon Dioxide Anion Gap BUN Creatinine Estim Creat Clear Calc Estimated GFR Glucose POC Capillary Glucose 137 H 144 H 205 H Calcium Total Bilirubin AST ALT Alkaline Phosphatase Total Protein Albumin Vancomycin Trough 08/23/24 08/23/24 08/23/24 05:46 08:28 09:27 WBC 6.9 RBC 3.94 L Hgb 10.4 L Hct 32.3 L MCV 82.0 MCH 26.4 MCHC 32.2 RDW 13.8 Plt Count 408 H MPV 8.7 Immature Gran % (Auto) 0.4 Neut % (Auto) 64.5 Lymph % (Auto) 21.8 Emanuel % (Auto) 10.2 H Eos % (Auto) 2.5 Baso % (Auto) 0.6 Lymph # (Auto) 1.50 Emanuel # (Auto) 0.7 H Eos # (Auto) 0.2 Baso # (Auto) 0.0 Abs Immat Gran (auto) 0.03 Absolute Neuts (auto) 4.4 Absolute Nucleated RBC 0.000 Nucleated RBC % 0.0 Sodium 135 L Potassium 3.9 Chloride 100 Carbon Dioxide 28 Anion Gap 7 BUN 15 Creatinine 1.00 Estim Creat Clear Calc 99 Estimated GFR > 60 Glucose 156 H POC Capillary Glucose 167 H 164 H Calcium 8.4 Total Bilirubin 1.0 AST 17 ALT 9 Alkaline Phosphatase 89 Total Protein 8.0 Albumin 3.3 L Vancomycin Trough 12.2 08/23/24 08/23/24 11:12 12:08 WBC RBC Hgb Hct MCV MCH MCHC RDW Plt Count MPV Immature Gran % (Auto) Neut % (Auto) Lymph % (Auto) Emanuel % (Auto) Eos % (Auto) Baso % (Auto) Lymph # (Auto) Emanuel # (Auto) Eos # (Auto) Baso # (Auto) Abs Immat Gran (auto) Absolute Neuts (auto) Absolute Nucleated RBC Nucleated RBC % Sodium Potassium Chloride Carbon Dioxide Anion Gap BUN Creatinine Estim Creat Clear Calc Estimated GFR Glucose POC Capillary Glucose 149 H 139 H Calcium Total Bilirubin AST ALT Alkaline Phosphatase Total Protein Albumin Vancomycin Trough Quality VTE Prophylaxis VTE prophylaxis: mechanical ordered
[2024-08-23] MEDS: metroNIDAZOLE 500 MG TABLET PO ×2 (15:19→21:13)
[2024-08-23] MEDS: ACETAMINOPHEN 325 MG TABLET 650 MG PO (15:50)
[2024-08-23 17:00] LABS: Glucose Point of Care 157 mg/dl (65-105)
[2024-08-23] MEDS: metFORMIN HCL XR 500 MG TAB.SR.24H PO (17:14)
[2024-08-23] MEDS: INSULIN ASPART (*BKC) 100 UNITS/ML 7 UNITS SUB-Q (17:14)
[2024-08-23] MEDS: INSULIN HUMAN ISOPHAN/REGULAR 70/30 (*BKC) 100 UNITS/ML 15 UNITS SUB-Q (17:55)
[2024-08-23] MEDS: VANCOMYCIN 2,000 MG/NS 500 ML 2,000 MG/500 ML BAG 125 MG IVPB (20:26)
[2024-08-23] MEDS: INSULIN GLARGINE (*BKC) 100 UNITS/ML 21 UNITS SUB-Q (20:27)
[2024-08-23 22:14] LABS: Glucose Point of Care 211 mg/dl (65-105)
[2024-08-24] VITALS: BP 128/84; PULSE 106; RESP 18; TEMP 37.5; O2SAT 96
[2024-08-24] MEDS: CEFEPIME 2 GM/NS 50 ML 2 GM/50 ML BAG IVPB (02:43)
[2024-08-24 04:25] VITALS: BP 121/89; PULSE 108; RESP 20; TEMP 36.9; O2SAT 97
[2024-08-24] MEDS: metroNIDAZOLE 500 MG TABLET PO (05:30)
[2024-08-24 05:33] LABS: Basophils Absolute Auto 0.1 K/mm3 (0.0-0.1); Basophils Percent Auto 0.5 % (0.2-1.2); Eosinophils Absolute Auto 0.1 K/mm3 (0-0.3); Hematocrit 31.4 % (42.0-52.0); Hemoglobin 9.9 g/dL (14.0-18.0); Immature Granulocyte Absolute 0.07 K/mm3 (0.00-0.031); Immature Granulocyte Percent A 0.8 % (0-0.5); Lymphocytes Absolute Auto 1.31 K/mm3 (0.9-3.2); Lymphocytes Percent Auto 14.1 % (18.3-44.2); Mean Corpuscular HGB Conc 31.5 g/dl (32-36); Mean Corpuscular Volume 82.4 fl (80-100); Mean Platelet Volume 8.9 fl (7.4-10.4); Monocytes Absolute Auto 0.9 K/mm3 (0.1-0.6); Neutrophils Absolute Auto 6.9 K/mm3 (1.3-6.7); Neutrophils Percent Auto 73.6 % (45.5-73.1); Platelet Count Result 405 k/mm3 (150-375); Red Blood Count 3.81 M/mm3 (4.6-6.20); Red Cell Distribution Width 13.9 % (11.5-14.5); White Blood Count 9.3 K/mm3 (4.5-10.0)
[2024-08-24 05:51] LABS: Alanine Aminotransferase 9 U/L (6-50); Albumin Level 3.2 g/dL (3.5-5.1); Alkaline Phosphatase 90 U/L (38-126); Anion Gap 6 mmol/L (4-12); Aspartate Amino Transferase 15 U/L (17-59); Bilirubin,Total 0.7 mg/dL (0.2-1.3); Blood Urea Nitrogen 18 mg/dL (9-20); Carbon Dioxide 26 mmol/L (22-30); Chloride 101 mmol/L (98-107); Estimated CRCL calculation 83 ml/min; Estimated Glomerular Filt Rate > 60; Glucose 161 mg/dL (65-110); Potassium 3.7 mmol/L (3.4-5.0); Sodium 133 mmol/L (137-145)
[2024-08-24 08:00] VITALS: BP 143/86; PULSE 100; RESP 16; TEMP 36.6; O2SAT 99
[2024-08-24 08:26] LABS: Glucose Point of Care 129 mg/dl (65-105)
--- NOTE | 2024-08-24 10:04 | P.PNIM_ITS ---
Progress Note: A&P Assessment and Plan (1) Osteomyelitis of right foot: Code(s): M86.9 - Osteomyelitis, unspecified Status: Acute Assessment and Plan: * This is a 48-year-old male who recently underwent left 5th ray amputation in 2020, recently admitted for right foot infection underwent right TMA of 2nd toe in June 08, 2024. He has been followed up by Wound Care since discharge. He return to ER on August 08 with right ankle pain. CT of the foot at that time showed soft tissue edema without her remain hand Del Angel fluid collection or gas within the soft tissues blood culture and wound culture were obtained which came back positive for MSSA. He has not followed up since the positive blood culture and had not been on antibiotics. [facility]24 where he presented for his routine wound care. Orthopedics evaluated the patient and noted wound getting worse as well as findings of positive blood culture recently which was not treated. He has also been feeling unwell and had some chills and night sweats. He also complained of right ankle pain that has been ongoing. * MR right ankle and MR right foot 08/21 showed: MPRESSION: 1. Likely septic arthritis at the ankle and subtalar joints with draining sinus tract draining from the anterior subtalar joint/sinus Tarsi to the dorsolateral hindfoot. 2. Associated osteomyelitis most prominent at the anterior process of the calcaneus also involving portions of the talus as detailed above. 3. Overlying myositis involving the intrinsic musculature at the dorsal midfoot with suggestion of tendinopathy and likely at least partial tears of the more superficial extensor digitorum longus tendons to the fifth and possibly fourth toes. 4. Complete tear and proximal retraction of the extensor hallucis longus and anterior tibial tendons, the former with likely associated septic tenosynovitis. 5. Chronic amputation of the second toe with suspicion for osteomyelitis at the distal diaphysis of the second metatarsal. 6. 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 7. Old healed fractures at the necks of the third and fourth metatarsals. * Patient started on Cefepime 2 gm IVPB q 8, Vancomycin 1,500 mg IVPB q 12, and Metronidiazole 500 mg PO q 8. Patient blood culture grew MSSA. Antibiotics switched to Ancef 2 gm ivpb q 8 today. * Orthopedic consulted. * Echo showed: Summary 1. Complete two-dimensional, color flow and Doppler transthoracic echocardiogram is performed. 2. LV size and wall thickness at upper limits of normal. Normal LV systolic function, ejection fraction about 60%. Grade 1 diastolic dysfunction. Normal RV size and systolic function. Mild left atrial enlargement. Normal mitral valve structure, trace MR. No hemodynamically significant aortic stenosis. Trace TR, RVSP 30 mmHg. * Repeated wound culture grew MSSA, receiving Ancef 2 gm IVPB q 8. * I&D of the right foot/ankle yesterday. Dressing with wound vac in place draining bloody drainage. No drainage noted on dressing. * Blood cultures grew Methicillin-susceptible Staphylococcus Aureus, receiving Ancef 2 gm IVPB q 8. (2) Bacteremia: Code(s): R78.81 - Bacteremia Status: Acute Assessment and Plan: * 08/08/24 blood cultures grew Staphylococcus Aureus * 08/21/24 Blood cultures grew Methicillin-susceptible Staphylococcus Aureus * Ancef 2 gm IVPB q8. * WBC 9.3. * Afebrile (3) Acute right ankle pain: Code(s): M25.571 - Pain in right ankle and joints of right foot Status: Acute Assessment and Plan: * Acetaminophen 650 mg PO q 4 PRN. 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 * Basal bolus insulin regimen. * Glargine 21 units subq qhs. (5) Insulin dependent diabetes mellitus: Status: Chronic Assessment and Plan: * Basal bolus insulin regimen. * Glargine 21 units subq qhs. (6) HTN (hypertension): Code(s): I10 - Essential (primary) hypertension Status: Acute Assessment and Plan: * Blood pressure medication losartan-HCTZ 50-12.5 mg PO daily. * BP 143/86 (7) Nausea: Code(s): R11.0 - Nausea Status: Acute Assessment and Plan: * Ondansetron 4 mg iv q 6 PRN. Subjective Date/time seen: 08/24/24 10:04 Interval history: Patient had incision and drainage with irrigation and debridement of right foot and ankle joint with wound vac placement yesterday. Patient denies pain, shortness of breath, nausea, vomiting, dizziness, or headache. Review of Systems Review of Systems: All systems reviewed & are unremarkable except as noted in HPI and below Exam Const: General: comfortable and no acute distress Resp: Effort & Inspection: normal respiratory effort Auscultation: clear to auscultation bilaterally Cardio: Rate: regular rate Rhythm: regular rhythm GI: GI Palp: Yes Soft to palpation Auscultation: normal bowel sounds Skin: Other: RLE wrapped with wound vac in place draining bloody drainage. No drainage noted on dressing. Neuro: Speech: normal speech Psych: Mental Status: mental status grossly normal Affect: normal affect Objective Data Vital Signs Vital Signs: Vital Signs - 24 hr 08/23/24 10:55 08/23/24 11:15 08/23/24 11:25 Temperature 98.6 F Pulse Rate 96 92 Respiratory Rate 18 14 Blood Pressure 130/90 141/94 H Pulse Oximetry 100 97 Oxygen Delivery Simple Face Mask Room Air Room Air Oxygen Flow Rate 6 08/23/24 11:40 08/23/24 11:10 08/23/24 11:50 Temperature 98.6 F Pulse Rate 92 93 94 Respiratory Rate 18 14 18 Blood Pressure 148/93 H 129/89 161/95 H Pulse Oximetry 95 100 98 Oxygen Delivery Room Air Simple Face Mask Oxygen Flow Rate 6 08/23/24 12:05 08/23/24 13:45 08/23/24 16:00 Temperature 98.1 F 97.7 F 98.1 F Pulse Rate 101 H 100 67 Respiratory Rate 20 18 18 Blood Pressure 139/86 130/84 168/87 H Pulse Oximetry 100 99 97 Oxygen Delivery Oxygen Flow Rate 08/23/24 19:55 08/23/24 20:00 08/24/24 00:00 Temperature 98.5 F 99.5 F Pulse Rate 111 H 111 H 106 H Respiratory Rate 18 18 18 Blood Pressure 128/75 128/84 Pulse Oximetry 98 98 96 Oxygen Delivery Room Air Oxygen Flow Rate 08/24/24 04:25 08/24/24 08:00 Temperature 98.5 F 97.9 F Pulse Rate 108 H 100 Respiratory Rate 20 16 Blood Pressure 121/89 143/86 H Pulse Oximetry 97 99 Oxygen Delivery Oxygen Flow Rate Intake/Output Intake/Output: Intake & Output 08/21/24 08/22/24 08/23/24 08/24/24 23:59 23:59 23:59 23:59 Intake Total 580 3496.4 1685 790 Output Total 0 500 400 Balance 580 3496.4 1185 390 Meds/Results Medications: Active Medications Generic Name Dose Route Start Last Admin Trade Name Freq PRN Reason Stop Dose Admin Acetaminophen 650 mg 08/20/24 12:16 08/23/24 15:50 Acetaminophen 325 Mg Tablet PO 650 mg Q4H PRN Administration Mild Pain (1-3) or Fever Dextrose 12.5 gm 08/20/24 12:22 Dextrose 50% 25 Gm/50 Ml Syringe IV PUSH PRN PRN Hypoglycemia Protocol Glucagon 1 mg 08/20/24 12:22 Glucagon For Inj 1 Mg Vial IM PRN PRN Hypoglycemia Protocol Glucose 15 gm 08/20/24 12:22 Glucose Oral Gel 15 Gm Of Glucse In 37.5 Gm Tube PO PRN PRN Hypoglycemia Protocol Hydrochlorothiazide 12.5 mg 08/22/24 09:00 08/23/24 12:30 Hydrochlorothiazide 12.5 Mg Capsule PO 12.5 mg DAILY ARLEEN Administration Dextrose 1,000 mls @ 100 mls/hr 08/20/24 12:22 Dextrose 5% 1,000 Ml IVPB PRN PRN Hypoglycemia Protocol Lactated Ringer's 1,000 mls @ 30 mls/hr 08/23/24 08:35 08/23/24 11:45 Lr - Lactated Ringers Iv IV CONT Infused .Q24H ARLEEN Infusion Lactated Ringer's 1,000 mls @ 30 mls/hr 08/23/24 11:50 Lr - Lactated Ringers Iv IV CONT .Q24H ARLEEN Lactated Ringer's 1,000 mls @ 30 mls/hr 08/23/24 11:50 Lr - Lactated Ringers Iv IV CONT .Q24H ARLEEN Cefazolin Sodium 2 gm in 50 mls @ 100 mls/hr 08/24/24 08:00 Ancef 2 Gm/D5w 50 Ml IVPB Q8HR ARLEEN Insulin Aspart 7 units 08/20/24 17:00 08/23/24 17:14 Insulin Aspart (*Bkc) 100 Units/Ml 0.067 units/kg (7 units) 7 units SUB-Q Administration TIDWM COUNTS INCLUDE 234 BEDS AT THE [facility] Insulin Glargine 21 units 08/20/24 21:00 08/23/24 20:27 Insulin Glargine (*Bkc) 100 Units/Ml 0.2 units/kg (21 units) 21 units SUB-Q Administration HS COUNTS INCLUDE 234 BEDS AT THE [facility] Insulin Human Isoph/Insulin Regular 15 units 08/23/24 17:00 08/23/24 17:55 Insulin Human Isophan/Regular 70/30 (*Bkc) 100 Units/Ml SUB-Q 15 units BIDWM ARLEEN Administration Losartan Potassium 50 mg 08/22/24 09:00 08/23/24 12:30 Losartan Potassium 50 Mg Tablet PO 50 mg DAILY ARLEEN Administration Metformin HCl 500 mg 08/23/24 17:00 08/23/24 17:14 Metformin Hcl Xr 500 Mg Tab.Sr.24h PO 500 mg BID ARLEEN Administration Miscellaneous Information 0 each 08/23/24 00:01 Semaglutide (Ozempic) Is Nonformulary - Can Patient Use From Home? XX 09/22/24 00:00 CLARIFY COUNTS INCLUDE 234 BEDS AT THE [facility] Morphine Sulfate 2 mg 08/23/24 11:50 Morphine Sulfate Inj (*Crx) 10 Mg/Ml Amp IV PUSH Q5M PRN Pain Non-Formulary Medication 0.25 mg 08/30/24 09:00 Semaglutide [Ozempic] SUB-Q 09/29/24 08:59 WEEKLY COUNTS INCLUDE 234 BEDS AT THE [facility] Ondansetron HCl 4 mg 08/20/24 17:21 08/23/24 12:29 Ondansetron Inj 4 Mg/2 Ml Vial IV PUSH 4 mg Q6H PRN Administration Nausea And Vomiting Ondansetron HCl 4 mg 08/23/24 11:50 Ondansetron Inj 4 Mg/2 Ml Vial IV PUSH ONCE PRN Nausea Perflutren Lipid Microsphere 0 ml 08/21/24 14:00 Perflutren Lipid Microspheres 1.5 Ml Vial Diluted To 10 Ml Total Volume IV PUSH 08/24/24 14:00 ONCE PRN adequate visualization Protocol Radiology Results: ITS Impressions Ankle MRI 08/21/24 08:41 IMPRESSION: 1. Likely septic arthritis at the ankle and subtalar joints with draining sinus tract draining from the anterior subtalar joint/sinus Tarsi to the dorsolateral hindfoot. 2. Associated osteomyelitis most prominent at the anterior process of the calcaneus also involving portions of the talus as detailed above. 3. Overlying myositis involving the intrinsic musculature at the dorsal midfoot with suggestion of tendinopathy and likely at least partial tears of the more superficial extensor digitorum longus tendons to the fifth and possibly fourth toes. 4. Complete tear and proximal retraction of the extensor hallucis longus and anterior tibial tendons, the former with likely associated septic tenosynovitis. 5. Chronic amputation of the second toe with suspicion for osteomyelitis at the distal diaphysis of the second metatarsal. 6. 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 7. Old healed fractures at the necks of the third and fourth metatarsals. Foot MRI 08/21/24 08:41 IMPRESSION: 1. Likely septic arthritis at the ankle and subtalar joints with draining sinus tract draining from the anterior subtalar joint/sinus Tarsi to the dorsolateral hindfoot. 2. Associated osteomyelitis most prominent at the anterior process of the calcaneus also involving portions of the talus as detailed above. 3. Overlying myositis involving the intrinsic musculature at the dorsal midfoot with suggestion of tendinopathy and likely at least partial tears of the more superficial extensor digitorum longus tendons to the fifth and possibly fourth toes. 4. Complete tear and proximal retraction of the extensor hallucis longus and anterior tibial tendons, the former with likely associated septic tenosynovitis. 5. Chronic amputation of the second toe with suspicion for osteomyelitis at the distal diaphysis of the second metatarsal. 6. 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 7. Old healed fractures at the necks of the third and fourth metatarsals. Labs Labs: Laboratory Results - last 24 hr 08/23/24 08/23/24 08/23/24 11:12 12:08 16:54 WBC RBC Hgb Hct MCV MCH MCHC RDW Plt Count MPV Immature Gran % (Auto) Neut % (Auto) Lymph % (Auto) Alcorn % (Auto) Eos % (Auto) Baso % (Auto) Lymph # (Auto) [place]corn # (Auto) Eos # (Auto) Baso # (Auto) Abs Immat Gran (auto) Absolute Neuts (auto) Absolute Nucleated RBC Nucleated RBC % Sodium Potassium Chloride Carbon Dioxide Anion Gap BUN Creatinine Estim Creat Clear Calc Estimated GFR Glucose POC Capillary Glucose 149 H 139 H 157 H Calcium Total Bilirubin AST ALT Alkaline Phosphatase Total Protein Albumin 08/23/24 08/24/24 08/24/24 19:54 05:11 08:04 WBC 9.3 RBC 3.81 L Hgb 9.9 L Hct 31.4 L MCV 82.4 MCH 26.0 MCHC 31.5 L RDW 13.9 Plt Count 405 H MPV 8.9 Immature Gran % (Auto) 0.8 H Neut % (Auto) 73.6 H Lymph % (Auto) 14.1 L Alcorn % (Auto) 10.0 H Eos % (Auto) 1.0 Baso % (Auto) 0.5 Lymph # (Auto) 1.31 Alcorn # (Auto) 0.9 H Eos # (Auto) 0.1 Baso # (Auto) 0.1 Abs Immat Gran (auto) 0.07 H Absolute Neuts (auto) 6.9 H Absolute Nucleated RBC 0.000 Nucleated RBC % 0.0 Sodium 133 L Potassium 3.7 Chloride 101 Carbon Dioxide 26 Anion Gap 6 BUN 18 Creatinine 1.20 Estim Creat Clear Calc 83 Estimated GFR > 60 Glucose 161 H POC Capillary Glucose 211 H 129 H Calcium 8.0 L Total Bilirubin 0.7 AST 15 L ALT 9 Alkaline Phosphatase 90 Total Protein 8.0 Albumin 3.2 L Quality VTE Prophylaxis VTE prophylaxis: mechanical ordered
[2024-08-24] MEDS: hydroCHLOROthiazide 12.5 MG CAPSULE PO (10:09)
[2024-08-24] MEDS: ceFAZolin 2 GM/D5W 50 ML 2 GM/50 ML BAG IVPB ×3 (10:10→20:59)
[2024-08-24] MEDS: LOSARTAN POTASSIUM 50 MG TABLET PO (10:10)
[2024-08-24] MEDS: INSULIN HUMAN ISOPHAN/REGULAR 70/30 (*BKC) 100 UNITS/ML 15 UNITS SUB-Q (10:10)
[2024-08-24] MEDS: metFORMIN HCL XR 500 MG TAB.SR.24H PO ×2 (10:10→17:53)
[2024-08-24 12:09] LABS: Glucose Point of Care 186 mg/dl (65-105)
[2024-08-24] MEDS: INSULIN ASPART (*BKC) 100 UNITS/ML 7 UNITS SUB-Q (13:13)
[2024-08-24 16:00] VITALS: BP 125/76; PULSE 101; RESP 14; TEMP 36.3; O2SAT 100
[2024-08-24 16:51] LABS: Glucose Point of Care 86 mg/dl (65-105)
[2024-08-24 20:24] LABS: Glucose Point of Care 161 mg/dl (65-105)
[2024-08-24] MEDS: INSULIN GLARGINE (*BKC) 100 UNITS/ML 21 UNITS SUB-Q (21:00)
[2024-08-24 21:22] VITALS: BP 137/82; PULSE 103; RESP 18; TEMP 36.3; O2SAT 100
[2024-08-25] MEDS: ceFAZolin 2 GM/D5W 50 ML 2 GM/50 ML BAG IVPB ×3 (05:21→20:46)
[2024-08-25 05:57] LABS: Basophils Percent Auto 0.4 % (0.2-1.2); Eosinophils Absolute Auto 0.2 K/mm3 (0-0.3); Eosinophils Percent Auto 2.2 % (0-4.4); Hematocrit 30.7 % (42.0-52.0); Hemoglobin 9.9 g/dL (14.0-18.0); Immature Granulocyte Absolute 0.04 K/mm3 (0.00-0.031); Immature Granulocyte Percent A 0.5 % (0-0.5); Lymphocytes Absolute Auto 1.56 K/mm3 (0.9-3.2); Mean Corpuscular HGB Conc 32.2 g/dl (32-36); Mean Corpuscular Hemoglobin 26.3 pg (26-34); Mean Corpuscular Volume 81.4 fl (80-100); Mean Platelet Volume 8.7 fl (7.4-10.4); Monocytes Absolute Auto 0.7 K/mm3 (0.1-0.6); Monocytes Percent Auto 8.8 % (2.6-8.5); Neutrophils Absolute Auto 5.7 K/mm3 (1.3-6.7); Neutrophils Percent Auto 69.1 % (45.5-73.1); Platelet Count Result 448 k/mm3 (150-375); Red Blood Count 3.77 M/mm3 (4.6-6.20); Red Cell Distribution Width 14.1 % (11.5-14.5); White Blood Count 8.2 K/mm3 (4.5-10.0)
[2024-08-25 06:04] LABS: Alanine Aminotransferase 8 U/L (6-50); Albumin Level 3.4 g/dL (3.5-5.1); Alkaline Phosphatase 85 U/L (38-126); Anion Gap 9 mmol/L (4-12); Aspartate Amino Transferase 17 U/L (17-59); Bilirubin,Total 0.7 mg/dL (0.2-1.3); Blood Urea Nitrogen 19 mg/dL (9-20); Calcium 8.5 mg/dL (8.4-10.2); Carbon Dioxide 28 mmol/L (22-30); Chloride 101 mmol/L (98-107); Estimated CRCL calculation 90 ml/min; Estimated Glomerular Filt Rate > 60; Glucose 140 mg/dL (65-110); Potassium 3.5 mmol/L (3.4-5.0); Sodium 138 mmol/L (137-145)
[2024-08-25 06:19] VITALS: BP 136/80; PULSE 98; RESP 18; TEMP 36.4; O2SAT 98
[2024-08-25 08:10] LABS: Glucose Point of Care 139 mg/dl (65-105)
[2024-08-25] MEDS: metFORMIN HCL XR 500 MG TAB.SR.24H PO ×2 (08:59→17:05)
[2024-08-25] MEDS: LOSARTAN POTASSIUM 50 MG TABLET PO (08:59)
[2024-08-25] MEDS: hydroCHLOROthiazide 12.5 MG CAPSULE PO (08:59)
[2024-08-25] MEDS: INSULIN HUMAN ISOPHAN/REGULAR 70/30 (*BKC) 100 UNITS/ML 15 UNITS SUB-Q ×2 (09:00→17:05)
--- NOTE | 2024-08-25 10:06 | P.PNIM_ITS ---
Progress Note: A&P Assessment and Plan (1) Osteomyelitis of right foot: Code(s): M86.9 - Osteomyelitis, unspecified Status: Acute Assessment and Plan: * This is a 48-year-old male who recently underwent left 5th ray amputation in 2020, recently admitted for right foot infection underwent right TMA of 2nd toe in June 08, 2024. He has been followed up by Wound Care since discharge. He return to ER on August 08 with right ankle pain. CT of the foot at that time showed soft tissue edema without her remain hand Del Angel fluid collection or gas within the soft tissues blood culture and wound culture were obtained which came back positive for MSSA. He has not followed up since the positive blood culture and had not been on antibiotics. [facility]24 where he presented for his routine wound care. Orthopedics evaluated the patient and noted wound getting worse as well as findings of positive blood culture recently which was not treated. He has also been feeling unwell and had some chills and night sweats. He also complained of right ankle pain that has been ongoing. * MR right ankle and MR right foot 08/21 showed: MPRESSION: 1. Likely septic arthritis at the ankle and subtalar joints with draining sinus tract draining from the anterior subtalar joint/sinus Tarsi to the dorsolateral hindfoot. 2. Associated osteomyelitis most prominent at the anterior process of the calcaneus also involving portions of the talus as detailed above. 3. Overlying myositis involving the intrinsic musculature at the dorsal midfoot with suggestion of tendinopathy and likely at least partial tears of the more superficial extensor digitorum longus tendons to the fifth and possibly fourth toes. 4. Complete tear and proximal retraction of the extensor hallucis longus and anterior tibial tendons, the former with likely associated septic tenosynovitis. 5. Chronic amputation of the second toe with suspicion for osteomyelitis at the distal diaphysis of the second metatarsal. 6. 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 7. Old healed fractures at the necks of the third and fourth metatarsals. * Patient started on Cefepime 2 gm IVPB q 8, Vancomycin 1,500 mg IVPB q 12, and Metronidiazole 500 mg PO q 8. Patient blood culture grew MSSA. Antibiotics switched to Ancef 2 gm ivpb q 8 on 08/24/24. * Orthopedic consulted. * Echo showed: Summary 1. Complete two-dimensional, color flow and Doppler transthoracic echocardiogram is performed. 2. LV size and wall thickness at upper limits of normal. Normal LV systolic function, ejection fraction about 60%. Grade 1 diastolic dysfunction. Normal RV size and systolic function. Mild left atrial enlargement. Normal mitral valve structure, trace MR. No hemodynamically significant aortic stenosis. Trace TR, RVSP 30 mmHg. * Repeated wound culture grew MSSA, receiving Ancef 2 gm IVPB q 8. * I&D of the right foot/ankle yesterday. Dressing with wound vac in place draining bloody drainage. No drainage noted on dressing. * Blood cultures grew Methicillin-susceptible Staphylococcus Aureus, receiving Ancef 2 gm IVPB q 8. (2) Bacteremia: Code(s): R78.81 - Bacteremia Status: Acute Assessment and Plan: * 08/08/24 blood cultures grew Staphylococcus Aureus * 08/21/24 Blood cultures grew Methicillin-susceptible Staphylococcus Aureus * Ancef 2 gm IVPB q8. * WBC 8.2 * Afebrile (3) Type 2 diabetes mellitus, with long-term current use of insulin: Code(s): E11.9 - Type 2 diabetes mellitus without complications; Z79.4 - jail (current) use of insulin Status: Acute Assessment and Plan: * Hypoglycemic protocol * Metformin 500 mg PO BID * Change Aspart with meals to sliding scale * Glargine 21 units subq at bedtime * 70/30 insulin 15 units subq BID (4) Acute right ankle pain: Code(s): M25.571 - Pain in right ankle and joints of right foot Status: Acute Assessment and Plan: * Acetaminophen 650 mg PO q 4 PRN. (5) HTN (hypertension): Code(s): I10 - Essential (primary) hypertension Status: Acute Assessment and Plan: * Blood pressure medication losartan-HCTZ 50-12.5 mg PO daily. * BP 136/80 (6) GERD (gastroesophageal reflux disease): Qualifiers: Esophagitis presence: esophagitis presence not specified Qualified Code(s): K21.9 - Gastro-esophageal reflux disease without esophagitis Code(s): K21.9 - Gastro-esophageal reflux disease without esophagitis Status: Acute Assessment and Plan: * Added Famotidine 20 mg PO daily. Subjective Date/time seen: 08/25/24 10:06 Interval history: Patient had incision and drainage with irrigation and debridement of right foot and ankle joint with wound vac placement on 08/23/24. Patient denies pain, shortness of breath, nausea, vomiting, dizziness, or headache. Patient reports having reflux bad last night and that he usually take omeprazole 20 mg in the morning. Review of Systems Review of Systems: All systems reviewed & are unremarkable except as noted in HPI and below Exam Const: General: comfortable and no acute distress Neck: Neck: supple Resp: Effort & Inspection: normal respiratory effort Auscultation: clear to auscultation bilaterally Cardio: Rate: regular rate Rhythm: regular rhythm GI: GI Palp: Yes Soft to palpation Auscultation: normal bowel sounds Skin: Other: RLE wrapped with wound vac in place draining bloody drainage. No drainage noted on dressing. Neuro: Speech: normal speech Psych: Mental Status: mental status grossly normal Affect: normal affect Objective Data Vital Signs Vital Signs: Vital Signs - 24 hr 08/24/24 16:00 08/24/24 21:22 08/24/24 20:00 Temperature 97.3 F L 97.3 F L Pulse Rate 101 H 103 H Respiratory Rate 14 18 Blood Pressure 125/76 137/82 Pulse Oximetry 100 100 Oxygen Delivery Room Air 08/25/24 06:19 Temperature 97.5 F L Pulse Rate 98 Respiratory Rate 18 Blood Pressure 136/80 Pulse Oximetry 98 Oxygen Delivery Intake/Output Intake/Output: Intake & Output 08/22/24 08/23/24 08/24/24 08/25/24 23:59 23:59 23:59 23:59 Intake Total 3496.4 1685 1550 570 Output Total 0 500 800 Balance 3496.4 1185 750 570 Meds/Results Medications: Active Medications Generic Name Dose Route Start Last Admin Trade Name Freq PRN Reason Stop Dose Admin Acetaminophen 650 mg 08/20/24 12:16 08/23/24 15:50 Acetaminophen 325 Mg Tablet PO 650 mg Q4H PRN Administration Mild Pain (1-3) or Fever Calcium Carbonate 200 mg 08/25/24 06:17 Calcium Carbonate (Tums) 500 Mg (200 Mg Elemental) PO Q6H PRN Indigestion Dextrose 12.5 gm 08/20/24 12:22 Dextrose 50% 25 Gm/50 Ml Syringe IV PUSH PRN PRN Hypoglycemia Protocol Famotidine 20 mg 08/25/24 09:45 Famotidine 20 Mg Tablet PO DAILY ARLEEN Glucagon 1 mg 08/20/24 12:22 Glucagon For Inj 1 Mg Vial IM PRN PRN Hypoglycemia Protocol Glucose 15 gm 08/20/24 12:22 Glucose Oral Gel 15 Gm Of Glucse In 37.5 Gm Tube PO PRN PRN Hypoglycemia Protocol Hydrochlorothiazide 12.5 mg 08/22/24 09:00 08/25/24 08:59 Hydrochlorothiazide 12.5 Mg Capsule PO 12.5 mg DAILY ARLEEN Administration Dextrose 1,000 mls @ 100 mls/hr 08/20/24 12:22 Dextrose 5% 1,000 Ml IVPB PRN PRN Hypoglycemia Protocol Cefazolin Sodium 2 gm in 50 mls @ 100 mls/hr 08/24/24 08:00 08/25/24 05:51 Ancef 2 Gm/D5w 50 Ml IVPB Infused Q8HR ARLEEN Infusion Insulin Aspart 7 units 08/20/24 17:00 08/25/24 08:46 Insulin Aspart (*Bkc) 100 Units/Ml 0.067 units/kg (7 units) Not Given SUB-Q TIDWM [facility] Insulin Glargine 21 units 08/20/24 21:00 08/24/24 21:00 Insulin Glargine (*Bkc) 100 Units/Ml 0.2 units/kg (21 units) 21 units SUB-Q Administration [facility] Insulin Human Isoph/Insulin Regular 15 units 08/23/24 17:00 08/25/24 09:00 Insulin Human Isophan/Regular 70/30 (*Bkc) 100 Units/Ml SUB-Q 15 units BIDWM ARLEEN Administration Losartan Potassium 50 mg 08/22/24 09:00 08/25/24 08:59 Losartan Potassium 50 Mg Tablet PO 50 mg DAILY ARLEEN Administration Metformin HCl 500 mg 08/23/24 17:00 08/25/24 08:59 Metformin Hcl Xr 500 Mg Tab.Sr.24h PO 500 mg BID ARLEEN Administration Miscellaneous Information 0 each 08/23/24 00:01 Semaglutide (Ozempic) Is Nonformulary - Can Patient Use From Home? XX 09/22/24 00:00 CLARIFY ARLEEN Morphine Sulfate 2 mg 08/23/24 11:50 Morphine Sulfate Inj (*Crx) 10 Mg/Ml Amp IV PUSH Q5M PRN Pain Non-Formulary Medication 0.25 mg 08/30/24 09:00 Semaglutide [Ozempic] SUB-Q 09/29/24 08:59 WEEKLY ARLEEN Ondansetron HCl 4 mg 08/20/24 17:21 08/23/24 12:29 Ondansetron Inj 4 Mg/2 Ml Vial IV PUSH 4 mg Q6H PRN Administration Nausea And Vomiting Ondansetron HCl 4 mg 08/23/24 11:50 Ondansetron Inj 4 Mg/2 Ml Vial IV PUSH ONCE PRN Nausea Radiology Results: ITS Impressions Ankle MRI 08/21/24 08:41 IMPRESSION: 1. Likely septic arthritis at the ankle and subtalar joints with draining sinus tract draining from the anterior subtalar joint/sinus Tarsi to the dorsolateral hindfoot. 2. Associated osteomyelitis most prominent at the anterior process of the calcaneus also involving portions of the talus as detailed above. 3. Overlying myositis involving the intrinsic musculature at the dorsal midfoot with suggestion of tendinopathy and likely at least partial tears of the more superficial extensor digitorum longus tendons to the fifth and possibly fourth toes. 4. Complete tear and proximal retraction of the extensor hallucis longus and anterior tibial tendons, the former with likely associated septic tenosynovitis. 5. Chronic amputation of the second toe with suspicion for osteomyelitis at the distal diaphysis of the second metatarsal. 6. 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 7. Old healed fractures at the necks of the third and fourth metatarsals. Foot MRI 08/21/24 08:41 IMPRESSION: 1. Likely septic arthritis at the ankle and subtalar joints with draining sinus tract draining from the anterior subtalar joint/sinus Tarsi to the dorsolateral hindfoot. 2. Associated osteomyelitis most prominent at the anterior process of the calcaneus also involving portions of the talus as detailed above. 3. Overlying myositis involving the intrinsic musculature at the dorsal midfoot with suggestion of tendinopathy and likely at least partial tears of the more superficial extensor digitorum longus tendons to the fifth and possibly fourth toes. 4. Complete tear and proximal retraction of the extensor hallucis longus and anterior tibial tendons, the former with likely associated septic tenosynovitis. 5. Chronic amputation of the second toe with suspicion for osteomyelitis at the distal diaphysis of the second metatarsal. 6. 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 7. Old healed fractures at the necks of the third and fourth metatarsals. Labs Labs: Laboratory Results - last 24 hr 08/24/24 08/24/24 08/24/24 12:00 16:42 19:55 WBC RBC Hgb Hct MCV MCH MCHC RDW Plt Count MPV Immature Gran % (Auto) Neut % (Auto) Lymph % (Auto) [place] % (Auto) Eos % (Auto) Baso % (Auto) Lymph # (Auto) [place] # (Auto) Eos # (Auto) Baso # (Auto) Abs Immat Gran (auto) Absolute Neuts (auto) Absolute Nucleated RBC Nucleated RBC % Sodium Potassium Chloride Carbon Dioxide Anion Gap BUN Creatinine Estim Creat Clear Calc Estimated GFR Glucose POC Capillary Glucose 186 H 86 161 H Calcium Total Bilirubin AST ALT Alkaline Phosphatase Total Protein Albumin 08/25/24 08/25/24 08/25/24 05:42 05:43 07:49 WBC 8.2 RBC 3.77 L Hgb 9.9 L Hct 30.7 L MCV 81.4 MCH 26.3 MCHC 32.2 RDW 14.1 Plt Count 448 H MPV 8.7 Immature Gran % (Auto) 0.5 Neut % (Auto) 69.1 Lymph % (Auto) 19.0 [place] % (Auto) 8.8 H Eos % (Auto) 2.2 Baso % (Auto) 0.4 Lymph # (Auto) 1.56 [place] # (Auto) 0.7 H Eos # (Auto) 0.2 Baso # (Auto) 0.0 Abs Immat Gran (auto) 0.04 H Absolute Neuts (auto) 5.7 Absolute Nucleated RBC 0.000 Nucleated RBC % 0.0 Sodium 138 Potassium 3.5 Chloride 101 Carbon Dioxide 28 Anion Gap 9 BUN 19 Creatinine 1.10 Estim Creat Clear Calc 90 Estimated GFR > 60 Glucose 140 H POC Capillary Glucose 139 H Calcium 8.5 Total Bilirubin 0.7 AST 17 ALT 8 Alkaline Phosphatase 85 Total Protein 8.0 Albumin 3.4 L Quality VTE Prophylaxis VTE prophylaxis: mechanical ordered
[2024-08-25] MEDS: FAMOTIDINE 20 MG TABLET PO (10:56)
[2024-08-25 11:48] LABS: Glucose Point of Care 169 mg/dl (65-105)
[2024-08-25] MEDS: INSULIN ASPART (*BKC) 100 UNITS/ML 7 UNITS SUB-Q (12:27)
[2024-08-25 14:26] VITALS: BP 136/80; PULSE 102; RESP 12; TEMP 36.7; O2SAT 99
[2024-08-25 17:00] LABS: Glucose Point of Care 109 mg/dl (65-105)
[2024-08-25 20:00] VITALS: PULSE 100; RESP 16; O2SAT 100
[2024-08-25 20:09] LABS: Glucose Point of Care 129 mg/dl (65-105)
[2024-08-25 20:40] VITALS: BP 136/95; PULSE 100; RESP 16; TEMP 36.6; O2SAT 100
[2024-08-25] MEDS: INSULIN GLARGINE (*BKC) 100 UNITS/ML 21 UNITS SUB-Q (20:46)
[2024-08-26] MEDS: ceFAZolin 2 GM/D5W 50 ML 2 GM/50 ML BAG IVPB ×3 (05:43→21:16)
[2024-08-26 06:05] VITALS: BP 126/88; PULSE 94; RESP 16; TEMP 36.4; O2SAT 100
[2024-08-26 06:07] LABS: Basophils Absolute Auto 0.1 K/mm3 (0.0-0.1); Basophils Percent Auto 0.6 % (0.2-1.2); Eosinophils Absolute Auto 0.3 K/mm3 (0-0.3); Eosinophils Percent Auto 3.8 % (0-4.4); Hemoglobin 10.5 g/dL (14.0-18.0); Immature Granulocyte Absolute 0.04 K/mm3 (0.00-0.031); Immature Granulocyte Percent A 0.5 % (0-0.5); Lymphocytes Absolute Auto 2.24 K/mm3 (0.9-3.2); Lymphocytes Percent Auto 27.5 % (18.3-44.2); Mean Corpuscular HGB Conc 31.8 g/dl (32-36); Mean Corpuscular Hemoglobin 26.3 pg (26-34); Mean Corpuscular Volume 82.7 fl (80-100); Mean Platelet Volume 8.9 fl (7.4-10.4); Monocytes Absolute Auto 0.8 K/mm3 (0.1-0.6); Monocytes Percent Auto 9.3 % (2.6-8.5); Neutrophils Absolute Auto 4.8 K/mm3 (1.3-6.7); Neutrophils Percent Auto 58.3 % (45.5-73.1); Platelet Count Result 524 k/mm3 (150-375); Red Blood Count 3.99 M/mm3 (4.6-6.20); Red Cell Distribution Width 14.1 % (11.5-14.5); White Blood Count 8.2 K/mm3 (4.5-10.0)
[2024-08-26 06:27] LABS: Alanine Aminotransferase 6 U/L (6-50); Albumin Level 3.4 g/dL (3.5-5.1); Alkaline Phosphatase 89 U/L (38-126); Anion Gap 10 mmol/L (4-12); Aspartate Amino Transferase 17 U/L (17-59); Bilirubin,Total 0.6 mg/dL (0.2-1.3); Blood Urea Nitrogen 19 mg/dL (9-20); Calcium 8.6 mg/dL (8.4-10.2); Carbon Dioxide 29 mmol/L (22-30); Chloride 101 mmol/L (98-107); Estimated CRCL calculation 72 ml/min; Estimated Glomerular Filt Rate 54; Glucose 86 mg/dL (65-110); Potassium 3.3 mmol/L (3.4-5.0); Sodium 140 mmol/L (137-145)
[2024-08-26 07:56] LABS: Glucose Point of Care 90 mg/dl (65-105)
[2024-08-26] MEDS: POTASSIUM CHLORIDE 20 MEQ ER TABLET 40 MEQ PO (09:06)
[2024-08-26 09:08] VITALS: RESP 16; O2SAT 100
[2024-08-26] MEDS: metFORMIN HCL XR 500 MG TAB.SR.24H PO ×2 (09:08→17:08)
[2024-08-26] MEDS: LOSARTAN POTASSIUM 50 MG TABLET PO (09:08)
[2024-08-26] MEDS: FAMOTIDINE 20 MG TABLET PO (09:08)
[2024-08-26] MEDS: hydroCHLOROthiazide 12.5 MG CAPSULE PO (09:08)
--- NOTE | 2024-08-26 09:53 | PM.PNORT ---
Progress Note: A&P Assessment and Plan (1) Bacteremia: Code(s): R78.81 - Bacteremia Status: Acute Assessment and Plan: Blood cultures from hospital admission on 08/08 revealed Staph. Wound cultures from 08/08 are positive for Staph and group B strep. No IV or oral antibiotics since discharge on 08/09. Repeat blood cultures from 08/20 revealing Staph. Wound cultures from 08/20 reveal staph. New intraoperative wound cultures from 08/23 reveal staph. IV antibiotics initiated by the hospitalist service. Will require IV antibiotics at discharge. ?Pharm ID consult for d/c planning. (2) Acute right ankle pain: Code(s): M25.571 - Pain in right ankle and joints of right foot Status: Acute Assessment and Plan: Preoperative MRI of the right ankle reveals septic arthritis at the ankle and subtalar joints with draining sinus tract from the anterior subtalar joint, sinus tarsi to the dorsolateral hindfoot. There is associated osteomyelitis in the anterior process of the calcaneus and portions of the talus. Myositis in the musculature in the dorsal midfoot noted. The previous amputation of the 2nd toe reveals possible suspicion for osteomyelitis at the distale metatarsal stump. POD #3: INCISION AND DRAINAGE WITH IRRIGATION AND DEBRIDEMENT RIGHT FOOT AND ANKLE JOINT WITH WOUND VAC PLACEMENT PWB RLE. Walker or crutches for offloading. FALL RISK. Continue pain control. WOUND VAC in place. Plan for dressing changed today. Wound consult. SCDs. Incentive Spirometry Use reviewed. Bowel Regimen. Continue IV antibiotics. Will repeat CRP/ESR today. WBC normal. Afebrile. Will consult with Dr. Reinoso and Dr. Ladd today to review next POC and any further surgical intervention needs. (3) Nausea: Code(s): R11.0 - Nausea Status: Acute Assessment and Plan: Still with c/o GERD. Started on medication by hospitalist service. ?GI consult for 3-4 week history of nausea and now GERD. Defer decision to medical team. (4) Diabetes mellitus: Qualifiers: Diabetes mellitus complication detail: with other skin complication Diabetes mellitus complication status: with skin complications Diabetes mellitus intermediate insulin use: with intermission coordinator use Diabetes mellitus type: type 2 Qualified Code(s): E11.628 - Type 2 diabetes mellitus with other skin complications; Z79.4 - [employer] (current) use of insulin Code(s): E11.9 - Type 2 diabetes mellitus without complications Status: Acute (5) Amputated toe of right foot: Code(s): S98.131A - Complete traumatic amputation of one right lesser toe, initial encounter Status: Acute Assessment and Plan: History of right 2nd toe amputation. Wound appears stable. See operative notes for intraoperative findings at site of 2nd ray amputation. Plan Reviewed history, exam, radiographs and current labs with attending MD and covering surgeon, Dr. Reinoso, who agrees with current plan as indicated above. No further recommendations from Dr. Reinoso at this time. Subjective Subjective Date/Time Seen: 08/26/24 09:53 Post Op day: 3 Interval history: POD #3: INCISION AND DRAINAGE WITH IRRIGATION AND DEBRIDEMENT RIGHT FOOT AND ANKLE JOINT WITH WOUND VAC PLACEMENT Patient doing well. Improvement in the ROM of the right foot/ankle. Wound VAC in place. Review of Systems Review of Systems: All systems reviewed & are unremarkable except as noted in HPI and below Exam Const: General: alert, awake and well nourished Orientation/consciousness: patient oriented x3 Limitations: no limitations HENMT: Head: normal to inspection Ears: hearing grossly normal bilaterally Face/Nose/Sinus: Normal external nose present Face and sinus: normal facial exam Neck: Neck: normal visual inspection Extrem: Right lower extremity: ankle Details: tenderness Location: of the lateral malleolus and of the medial malleolus, swelling Details: laterally and posteriorly, abnormal ROM Details: pain with active ROM Details: with plantar flexion and with dorsiflexion and pain with passive ROM Details: with plantar flexion and with dorsiflexion, warmth and other (redness, laterally ); no ecchymosis and foot ( 2nd toe amputation) Details: abnormal to inspection, vascular exam Details: dorsalis pedis pulse present ( With Doppler), posterior tibial pulse present ( with Doppler) and abnormal capillary refill Location: of all toes, motor-sensory exam Details: light-touch abnormal and other ( see wound assessment below); abnormal capillary refill Other: Wound on the dorsal lateral aspect of the right foot with wound VAC in place and 400 cc of serosanguineous drainage. Erythema to the right lateral ankle significantly improved. Additional wound at the side of the 2nd toe amputation improved. No malodor. Psych: Appearance: well kempt Mental Status: mental status grossly normal Objective Data Vital Signs Vital Signs: Vital Signs - 24 hr 08/25/24 14:26 08/25/24 20:40 08/25/24 20:00 Temperature 36.7 C 36.6 C Pulse Rate 102 H 100 100 Respiratory Rate 12 16 16 Blood Pressure 136/80 136/95 H Pulse Oximetry 99 100 100 Oxygen Delivery Room Air 08/26/24 06:05 Temperature 36.4 C Pulse Rate 94 Respiratory Rate 16 Blood Pressure 126/88 Pulse Oximetry 100 Oxygen Delivery Intake/Output Intake/Output: Intake & Output 08/23/24 08/24/24 08/25/24 08/26/24 23:59 23:59 23:59 23:59 Intake Total 1685 1550 1150 570 Output Total 500 800 Balance 1098 298 7143 570 Meds/Results Medications: Active Medications Generic Name Dose Route Start Last Admin Trade Name Freq PRN Reason Stop Dose Admin Acetaminophen 650 mg 08/20/24 12:16 08/23/24 15:50 Acetaminophen 325 Mg Tablet PO 650 mg Q4H PRN Administration Mild Pain (1-3) or Fever Calcium Carbonate 200 mg 08/25/24 06:17 Calcium Carbonate (Tums) 500 Mg (200 Mg Elemental) PO Q6H PRN Indigestion Dextrose 12.5 gm 08/25/24 12:46 Dextrose 50% 25 Gm/50 Ml Syringe IV PUSH PRN PRN Hypoglycemia Protocol Famotidine 20 mg 08/25/24 09:45 08/26/24 09:08 Famotidine 20 Mg Tablet PO 20 mg DAILY ARLEEN Administration Glucagon 1 mg 08/25/24 12:46 Glucagon For Inj 1 Mg Vial IM PRN PRN Hypoglycemia Protocol Glucose 15 gm 08/25/24 12:46 Glucose Oral Gel 15 Gm Of Glucse In 37.5 Gm Tube PO PRN PRN Hypoglycemia Protocol Hydrochlorothiazide 12.5 mg 08/22/24 09:00 08/26/24 09:08 Hydrochlorothiazide 12.5 Mg Capsule PO 12.5 mg DAILY ARLEEN Administration Cefazolin Sodium 2 gm in 50 mls @ 100 mls/hr 08/24/24 08:00 08/26/24 06:24 Ancef 2 Gm/D5w 50 Ml IVPB Infused Q8HR ARLEEN Infusion Dextrose 1,000 mls @ 100 mls/hr 08/25/24 12:46 Dextrose 5% 1,000 Ml IVPB PRN PRN Hypoglycemia Protocol Insulin Aspart 4 - 8 units 08/25/24 17:00 08/26/24 07:50 Insulin Aspart (*Bkc) 100 Units/Ml SUB-Q Not Given TIDWM [facility] Protocol Insulin Glargine 21 units 08/20/24 21:00 08/25/24 20:46 Insulin Glargine (*Bkc) 100 Units/Ml 0.2 units/kg (21 units) 21 units SUB-Q Administration [facility] Insulin Human Isoph/Insulin Regular 15 units 08/23/24 17:00 08/26/24 07:55 Insulin Human Isophan/Regular 70/30 (*Bkc) 100 Units/Ml SUB-Q Not Given BIDWM [facility] Losartan Potassium 50 mg 08/22/24 09:00 08/26/24 09:08 Losartan Potassium 50 Mg Tablet PO 50 mg DAILY ARLEEN Administration Metformin HCl 500 mg 08/23/24 17:00 08/26/24 09:08 Metformin Hcl Xr 500 Mg Tab.Sr.24h PO 500 mg BID ARLEEN Administration Miscellaneous Information 0 each 08/23/24 00:01 Semaglutide (Ozempic) Is Nonformulary - Can Patient Use From Home? XX 09/22/24 00:00 CLARIFY [facility] Morphine Sulfate 2 mg 08/23/24 11:50 Morphine Sulfate Inj (*Crx) 10 Mg/Ml Amp IV PUSH Q5M PRN Pain Non-Formulary Medication 0.25 mg 08/30/24 09:00 Semaglutide [Ozempic] SUB-Q 09/29/24 08:59 WEEKLY [facility] Ondansetron HCl 4 mg 08/20/24 17:21 08/23/24 12:29 Ondansetron Inj 4 Mg/2 Ml Vial IV PUSH 4 mg Q6H PRN Administration Nausea And Vomiting Ondansetron HCl 4 mg 08/23/24 11:50 Ondansetron Inj 4 Mg/2 Ml Vial IV PUSH ONCE PRN Nausea Radiology Results: ITS Impressions Ankle MRI 08/21/24 08:41 IMPRESSION: 1. Likely septic arthritis at the ankle and subtalar joints with draining sinus tract draining from the anterior subtalar joint/sinus Tarsi to the dorsolateral hindfoot. 2. Associated osteomyelitis most prominent at the anterior process of the calcaneus also involving portions of the talus as detailed above. 3. Overlying myositis involving the intrinsic musculature at the dorsal midfoot with suggestion of tendinopathy and likely at least partial tears of the more superficial extensor digitorum longus tendons to the fifth and possibly fourth toes. 4. Complete tear and proximal retraction of the extensor hallucis longus and anterior tibial tendons, the former with likely associated septic tenosynovitis. 5. Chronic amputation of the second toe with suspicion for osteomyelitis at the distal diaphysis of the second metatarsal. 6. 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 7. Old healed fractures at the necks of the third and fourth metatarsals. Foot MRI 08/21/24 08:41 IMPRESSION: 1. Likely septic arthritis at the ankle and subtalar joints with draining sinus tract draining from the anterior subtalar joint/sinus Tarsi to the dorsolateral hindfoot. 2. Associated osteomyelitis most prominent at the anterior process of the calcaneus also involving portions of the talus as detailed above. 3. Overlying myositis involving the intrinsic musculature at the dorsal midfoot with suggestion of tendinopathy and likely at least partial tears of the more superficial extensor digitorum longus tendons to the fifth and possibly fourth toes. 4. Complete tear and proximal retraction of the extensor hallucis longus and anterior tibial tendons, the former with likely associated septic tenosynovitis. 5. Chronic amputation of the second toe with suspicion for osteomyelitis at the distal diaphysis of the second metatarsal. 6. 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 7. Old healed fractures at the necks of the third and fourth metatarsals. Labs Labs: Laboratory Results - last 24 hr 08/25/24 08/25/24 08/25/24 11:43 16:43 19:56 WBC RBC Hgb Hct MCV MCH MCHC RDW Plt Count MPV Immature Gran % (Auto) Neut % (Auto) Lymph % (Auto) [place] % (Auto) Eos % (Auto) Baso % (Auto) Lymph # (Auto) [place] # (Auto) Eos # (Auto) Baso # (Auto) Abs Immat Gran (auto) Absolute Neuts (auto) Absolute Nucleated RBC Nucleated RBC % Sodium Potassium Chloride Carbon Dioxide Anion Gap BUN Creatinine Estim Creat Clear Calc Estimated GFR Glucose POC Capillary Glucose 169 H 109 H 129 H Calcium Total Bilirubin AST ALT Alkaline Phosphatase Total Protein Albumin 08/26/24 08/26/24 05:09 07:52 WBC 8.2 RBC 3.99 L Hgb 10.5 L Hct 33.0 L MCV 82.7 MCH 26.3 MCHC 31.8 L RDW 14.1 Plt Count 524 H MPV 8.9 Immature Gran % (Auto) 0.5 Neut % (Auto) 58.3 Lymph % (Auto) 27.5 [place] % (Auto) 9.3 H Eos % (Auto) 3.8 Baso % (Auto) 0.6 Lymph # (Auto) 2.24 [place] # (Auto) 0.8 H Eos # (Auto) 0.3 Baso # (Auto) 0.1 Abs Immat Gran (auto) 0.04 H Absolute Neuts (auto) 4.8 Absolute Nucleated RBC 0.000 Nucleated RBC % 0.0 Sodium 140 Potassium 3.3 L Chloride 101 Carbon Dioxide 29 Anion Gap 10 BUN 19 Creatinine 1.40 H Estim Creat Clear Calc 72 Estimated GFR 54 L Glucose 86 POC Capillary Glucose 90 Calcium 8.6 Total Bilirubin 0.6 AST 17 ALT 6 Alkaline Phosphatase 89 Total Protein 8.0 Albumin 3.4 L
--- NOTE | 2024-08-26 10:32 | PM.IMPN ---
Progress Note: A&P Assessment and Plan (1) Osteomyelitis of right foot: Code(s): M86.9 - Osteomyelitis, unspecified Status: Acute Assessment and Plan: This is a 48-year-old male who recently underwent left 5th ray amputation in 2020, recently admitted for right foot infection underwent right TMA of 2nd toe in June 08, 2024. He has been followed up by Wound Care since discharge. He return to ER on August 08 with right ankle pain. CT of the foot at that time showed soft tissue edema without her remain hand Del Angel fluid collection or gas within the soft tissues blood culture and wound culture were obtained which came back positive for MSSA. He has not followed up since the positive blood culture and had not been on antibiotics. [facility] was [facility]24 where he presented for his routine wound care. Orthopedics evaluated the patient and noted wound getting worse as well as findings of positive blood culture recently which was not treated. He has also been feeling unwell and had some chills and night sweats. He also complained of right ankle pain that has been ongoing. MR right ankle and MR right foot 08/21 showed: MPRESSION: 1. Likely septic arthritis at the ankle and subtalar joints with draining sinus tract draining from the anterior subtalar joint/sinus Tarsi to the dorsolateral hindfoot. 2. Associated osteomyelitis most prominent at the anterior process of the calcaneus also involving portions of the talus as detailed above. 3. Overlying myositis involving the intrinsic musculature at the dorsal midfoot with suggestion of tendinopathy and likely at least partial tears of the more superficial extensor digitorum longus tendons to the fifth and possibly fourth toes. 4. Complete tear and proximal retraction of the extensor hallucis longus and anterior tibial tendons, the former with likely associated septic tenosynovitis. 5. Chronic amputation of the second toe with suspicion for osteomyelitis at the distal diaphysis of the second metatarsal. 6. 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 7. Old healed fractures at the necks of the third and fourth metatarsals. Patient started on Cefepime 2 gm IVPB q 8, Vancomycin 1,500 mg IVPB q 12, and Metronidiazole 500 mg PO q 8. Patient blood culture grew MSSA. Antibiotics switched to Ancef 2 gm ivpb q 8 on 08/24/24. Orthopedic consulted. Echo showed: Summary 1. Complete two-dimensional, color flow and Doppler transthoracic echocardiogram is performed. 2. LV size and wall thickness at upper limits of normal. Normal LV systolic function, ejection fraction about 60%. Grade 1 diastolic dysfunction. Normal RV size and systolic function. Mild left atrial enlargement. Normal mitral valve structure, trace MR. No hemodynamically significant aortic stenosis. Trace TR, RVSP 30 mmHg. Repeated wound culture grew MSSA, receiving Ancef 2 gm IVPB q 8. I&D of the right foot/ankle yesterday. Dressing with wound vac in place draining bloody drainage. No drainage noted on dressing. Blood cultures grew Methicillin-susceptible Staphylococcus Aureus, receiving Ancef 2 gm IVPB q 8. Redrew blood cultures today. (2) Bacteremia: Code(s): R78.81 - Bacteremia Status: Acute Assessment and Plan: 08/08/24 blood cultures grew Staphylococcus Aureus 08/21/24 Blood cultures grew Methicillin-susceptible Staphylococcus Aureus Ancef 2 gm IVPB q8. 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 Glargine 21 units subq at bedtime 70/30 insulin 15 units subq BID (4) Acute right ankle pain: Code(s): M25.571 - Pain in right ankle and joints of right foot Status: Acute Assessment and Plan: Acetaminophen 650 mg PO q 4 PRN. (5) HTN (hypertension): Code(s): I10 - Essential (primary) hypertension Status: Acute Assessment and Plan: Blood pressure medication losartan-HCTZ 50-12.5 mg PO daily. BP 126/88 (6) GERD (gastroesophageal reflux disease): Qualifiers: Esophagitis presence: esophagitis presence not specified Qualified Code(s): K21.9 - Gastro-esophageal reflux disease without esophagitis Code(s): K21.9 - Gastro-esophageal reflux disease without esophagitis Status: Acute Assessment and Plan: Continue Famotidine 20 mg PO daily. Subjective Date/time seen: 08/26/24 10:32 Interval history: Patient had incision and drainage with irrigation and debridement of right foot and ankle joint with wound vac placement on 08/23/24. Patient denies pain, shortness of breath, nausea, vomiting, dizziness, or headache. Patient reports that reflux was improved with Pepcid and that he thinks in works better than the home Prilosec that he was taking. Review of Systems Review of Systems: All systems reviewed & are unremarkable except as noted in HPI and below Exam Const: General: comfortable and no acute distress Eyes: Sclera: sclerae normal Resp: Effort & Inspection: normal respiratory effort Auscultation: clear to auscultation bilaterally Cardio: Rate: regular rate Rhythm: regular rhythm GI: GI Palp: Yes Soft to palpation Auscultation: normal bowel sounds Skin: Other: Right foot with wound vac in place and draining serosanguineous drainage. Neuro: Speech: normal speech Psych: Mental Status: mental status grossly normal Affect: normal affect Objective Data Vital Signs Vital Signs: Vital Signs - 24 hr 08/25/24 14:26 08/25/24 20:40 08/25/24 20:00 Temperature 98.1 F 98 F Pulse Rate 102 H 100 100 Respiratory Rate 12 16 16 Blood Pressure 136/80 136/95 H Pulse Oximetry 99 100 100 Oxygen Delivery Room Air 08/26/24 06:05 Temperature 97.6 F Pulse Rate 94 Respiratory Rate 16 Blood Pressure 126/88 Pulse Oximetry 100 Oxygen Delivery Intake/Output Intake/Output: Intake & Output 08/23/24 08/24/24 08/25/24 08/26/24 23:59 23:59 23:59 23:59 Intake Total 1685 1550 1150 570 Output Total 500 800 Balance 0675 542 5155 570 Meds/Results Medications: Active Medications Generic Name Dose Route Start Last Admin Trade Name Freq PRN Reason Stop Dose Admin Acetaminophen 650 mg 08/20/24 12:16 08/23/24 15:50 Acetaminophen 325 Mg Tablet PO 650 mg Q4H PRN Administration Mild Pain (1-3) or Fever Calcium Carbonate 200 mg 08/25/24 06:17 Calcium Carbonate (Tums) 500 Mg (200 Mg Elemental) PO Q6H PRN Indigestion Dextrose 12.5 gm 08/25/24 12:46 Dextrose 50% 25 Gm/50 Ml Syringe IV PUSH PRN PRN Hypoglycemia Protocol Famotidine 20 mg 08/25/24 09:45 08/26/24 09:08 Famotidine 20 Mg Tablet PO 20 mg DAILY ARLEEN Administration Glucagon 1 mg 08/25/24 12:46 Glucagon For Inj 1 Mg Vial IM PRN PRN Hypoglycemia Protocol Glucose 15 gm 08/25/24 12:46 Glucose Oral Gel 15 Gm Of Glucse In 37.5 Gm Tube PO PRN PRN Hypoglycemia Protocol Hydrochlorothiazide 12.5 mg 08/22/24 09:00 08/26/24 09:08 Hydrochlorothiazide 12.5 Mg Capsule PO 12.5 mg DAILY ARLEEN Administration Cefazolin Sodium 2 gm in 50 mls @ 100 mls/hr 08/24/24 08:00 08/26/24 06:24 Ancef 2 Gm/D5w 50 Ml IVPB Infused Q8HR ARLEEN Infusion Dextrose 1,000 mls @ 100 mls/hr 08/25/24 12:46 Dextrose 5% 1,000 Ml IVPB PRN PRN Hypoglycemia Protocol Insulin Aspart 4 - 8 units 08/25/24 17:00 08/26/24 07:50 Insulin Aspart (*Bkc) 100 Units/Ml SUB-Q Not Given TIDWM [facility] [place] Protocol Insulin Glargine 21 units 08/20/24 21:00 08/25/24 20:46 Insulin Glargine (*Bkc) 100 Units/Ml 0.2 units/kg (21 units) 21 units SUB-Q Administration [facility] Insulin Human Isoph/Insulin Regular 15 units 08/23/24 17:00 08/26/24 07:55 Insulin Human Isophan/Regular 70/30 (*Bkc) 100 Units/Ml SUB-Q Not Given BIDWM [facility] [place] Losartan Potassium 50 mg 08/22/24 09:00 08/26/24 09:08 Losartan Potassium 50 Mg Tablet PO 50 mg DAILY ARLEEN Administration Metformin HCl 500 mg 08/23/24 17:00 08/26/24 09:08 Metformin Hcl Xr 500 Mg Tab.Sr.24h PO 500 mg BID ARLEEN Administration Miscellaneous Information 0 each 08/23/24 00:01 Semaglutide (Ozempic) Is Nonformulary - Can Patient Use From Home? XX 09/22/24 00:00 CLARIFY [facility] [place] Morphine Sulfate 2 mg 08/23/24 11:50 Morphine Sulfate Inj (*Crx) 10 Mg/Ml Amp IV PUSH Q5M PRN Pain Non-Formulary Medication 0.25 mg 08/30/24 09:00 Semaglutide [Ozempic] SUB-Q 09/29/24 08:59 WEEKLY ARLEEN Ondansetron HCl 4 mg 08/20/24 17:21 08/23/24 12:29 Ondansetron Inj 4 Mg/2 Ml Vial IV PUSH 4 mg Q6H PRN Administration Nausea And Vomiting Ondansetron HCl 4 mg 08/23/24 11:50 Ondansetron Inj 4 Mg/2 Ml Vial IV PUSH ONCE PRN Nausea Radiology Results: ITS Impressions Ankle MRI 08/21/24 08:41 IMPRESSION: 1. Likely septic arthritis at the ankle and subtalar joints with draining sinus tract draining from the anterior subtalar joint/sinus Tarsi to the dorsolateral hindfoot. 2. Associated osteomyelitis most prominent at the anterior process of the calcaneus also involving portions of the talus as detailed above. 3. Overlying myositis involving the intrinsic musculature at the dorsal midfoot with suggestion of tendinopathy and likely at least partial tears of the more superficial extensor digitorum longus tendons to the fifth and possibly fourth toes. 4. Complete tear and proximal retraction of the extensor hallucis longus and anterior tibial tendons, the former with likely associated septic tenosynovitis. 5. Chronic amputation of the second toe with suspicion for osteomyelitis at the distal diaphysis of the second metatarsal. 6. 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 7. Old healed fractures at the necks of the third and fourth metatarsals. Foot MRI 08/21/24 08:41 IMPRESSION: 1. Likely septic arthritis at the ankle and subtalar joints with draining sinus tract draining from the anterior subtalar joint/sinus Tarsi to the dorsolateral hindfoot. 2. Associated osteomyelitis most prominent at the anterior process of the calcaneus also involving portions of the talus as detailed above. 3. Overlying myositis involving the intrinsic musculature at the dorsal midfoot with suggestion of tendinopathy and likely at least partial tears of the more superficial extensor digitorum longus tendons to the fifth and possibly fourth toes. 4. Complete tear and proximal retraction of the extensor hallucis longus and anterior tibial tendons, the former with likely associated septic tenosynovitis. 5. Chronic amputation of the second toe with suspicion for osteomyelitis at the distal diaphysis of the second metatarsal. 6. 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 7. Old healed fractures at the necks of the third and fourth metatarsals. Labs Labs: Laboratory Results - last 24 hr 08/25/24 08/25/24 08/25/24 11:43 16:43 19:56 WBC RBC Hgb Hct MCV MCH MCHC RDW Plt Count MPV Immature Gran % (Auto) Neut % (Auto) Lymph % (Auto) [place] % (Auto) Eos % (Auto) Baso % (Auto) Lymph # (Auto) [place] # (Auto) Eos # (Auto) Baso # (Auto) Abs Immat Gran (auto) Absolute Neuts (auto) Absolute Nucleated RBC Nucleated RBC % Sodium Potassium Chloride Carbon Dioxide Anion Gap BUN Creatinine Estim Creat Clear Calc Estimated GFR Glucose POC Capillary Glucose 169 H 109 H 129 H Calcium Total Bilirubin AST ALT Alkaline Phosphatase Total Protein Albumin 08/26/24 08/26/24 05:09 07:52 WBC 8.2 RBC 3.99 L Hgb 10.5 L Hct 33.0 L MCV 82.7 MCH 26.3 MCHC 31.8 L RDW 14.1 Plt Count 524 H MPV 8.9 Immature Gran % (Auto) 0.5 Neut % (Auto) 58.3 Lymph % (Auto) 27.5 [place] % (Auto) 9.3 H Eos % (Auto) 3.8 Baso % (Auto) 0.6 Lymph # (Auto) 2.24 [place] # (Auto) 0.8 H Eos # (Auto) 0.3 Baso # (Auto) 0.1 Abs Immat Gran (auto) 0.04 H Absolute Neuts (auto) 4.8 Absolute Nucleated RBC 0.000 Nucleated RBC % 0.0 Sodium 140 Potassium 3.3 L Chloride 101 Carbon Dioxide 29 Anion Gap 10 BUN 19 Creatinine 1.40 H Estim Creat Clear Calc 72 Estimated GFR 54 L Glucose 86 POC Capillary Glucose 90 Calcium 8.6 Total Bilirubin 0.6 AST 17 ALT 6 Alkaline Phosphatase 89 Total Protein 8.0 Albumin 3.4 L Quality VTE Prophylaxis VTE prophylaxis: mechanical ordered
[2024-08-26 10:38] LABS: CRP 5.8 mg/dL (<1.0)
[2024-08-26 11:12] LABS: Erythrocyte Sedimentation Rate 138 mm/hr (0-20)
[2024-08-26 11:38] LABS: Glucose Point of Care 115 mg/dl (65-105)
[2024-08-26 14:00] VITALS: BP 129/80; PULSE 96; RESP 18; TEMP 36.6; O2SAT 100
[2024-08-26 16:43] LABS: Glucose Point of Care 150 mg/dl (65-105)
[2024-08-26] MEDS: INSULIN HUMAN ISOPHAN/REGULAR 70/30 (*BKC) 100 UNITS/ML 15 UNITS SUB-Q (17:09)
[2024-08-26 20:00] VITALS: PULSE 95; RESP 16; O2SAT 100
[2024-08-26 20:58] LABS: Glucose Point of Care 143 mg/dl (65-105)
[2024-08-26] MEDS: INSULIN GLARGINE (*BKC) 100 UNITS/ML 21 UNITS SUB-Q (21:16)
[2024-08-26 21:22] VITALS: BP 151/88; PULSE 95; RESP 16; TEMP 36.2; O2SAT 100
[2024-08-27] MEDS: ceFAZolin 2 GM/D5W 50 ML 2 GM/50 ML BAG IVPB ×3 (05:26→21:01)
[2024-08-27 06:00] VITALS: BP 137/85; PULSE 93; RESP 16; TEMP 36.4; O2SAT 100
[2024-08-27 06:06] LABS: Basophils Absolute Auto 0.1 K/mm3 (0.0-0.1); Basophils Percent Auto 0.8 % (0.2-1.2); Eosinophils Absolute Auto 0.3 K/mm3 (0-0.3); Eosinophils Percent Auto 4.3 % (0-4.4); Hematocrit 31.5 % (42.0-52.0); Hemoglobin 9.9 g/dL (14.0-18.0); Immature Granulocyte Absolute 0.04 K/mm3 (0.00-0.031); Immature Granulocyte Percent A 0.5 % (0-0.5); Lymphocytes Absolute Auto 1.97 K/mm3 (0.9-3.2); Lymphocytes Percent Auto 25.8 % (18.3-44.2); Mean Corpuscular HGB Conc 31.4 g/dl (32-36); Mean Corpuscular Hemoglobin 25.8 pg (26-34); Mean Corpuscular Volume 82.2 fl (80-100); Mean Platelet Volume 8.9 fl (7.4-10.4); Monocytes Absolute Auto 0.7 K/mm3 (0.1-0.6); Monocytes Percent Auto 8.8 % (2.6-8.5); Neutrophils Absolute Auto 4.6 K/mm3 (1.3-6.7); Neutrophils Percent Auto 59.8 % (45.5-73.1); Platelet Count Result 488 k/mm3 (150-375); Red Blood Count 3.83 M/mm3 (4.6-6.20); Red Cell Distribution Width 14.1 % (11.5-14.5); White Blood Count 7.6 K/mm3 (4.5-10.0)
[2024-08-27 06:14] LABS: Alanine Aminotransferase 7 U/L (6-50); Albumin Level 3.4 g/dL (3.5-5.1); Alkaline Phosphatase 91 U/L (38-126); Anion Gap 7 mmol/L (4-12); Aspartate Amino Transferase 18 U/L (17-59); Bilirubin,Total 0.6 mg/dL (0.2-1.3); Blood Urea Nitrogen 17 mg/dL (9-20); Calcium 8.4 mg/dL (8.4-10.2); Carbon Dioxide 28 mmol/L (22-30); Chloride 102 mmol/L (98-107); Estimated CRCL calculation 77 ml/min; Estimated Glomerular Filt Rate 58; Glucose 117 mg/dL (65-110); Potassium 3.3 mmol/L (3.4-5.0); Sodium 137 mmol/L (137-145)
[2024-08-27 08:04] LABS: Glucose Point of Care 118 mg/dl (65-105)
[2024-08-27] MEDS: LOSARTAN POTASSIUM 50 MG TABLET PO (09:06)
[2024-08-27] MEDS: hydroCHLOROthiazide 12.5 MG CAPSULE PO (09:06)
[2024-08-27] MEDS: FAMOTIDINE 20 MG TABLET PO (09:06)
[2024-08-27] MEDS: metFORMIN HCL XR 500 MG TAB.SR.24H PO ×2 (09:07→17:20)
[2024-08-27] MEDS: POTASSIUM CHLORIDE 20 MEQ ER TABLET 40 MEQ PO (09:07)
[2024-08-27] MEDS: INSULIN HUMAN ISOPHAN/REGULAR 70/30 (*BKC) 100 UNITS/ML 15 UNITS SUB-Q ×2 (09:10→17:21)
[2024-08-27 09:13] VITALS: BP 141/67; PULSE 81; RESP 16; TEMP 36.2; O2SAT 96
--- NOTE | 2024-08-27 09:27 | PHA.ABX.ID ---
Pharmacy ID Consult - Stewardship Interventions Type of Interventions: Discharge Recommendation Pharmacy ID Note: Subjective Pharmacy was consulted by Ruba Kemp regarding infectious diseases for Kain Montejo. Kain Montejo is a 48 year old M with concerns regarding MSSA Osteomyelitis and Complicated MSSA BSI. Background The patient is currently receiving Cefazolin 2g q8h (Day 4). The patient's PMH includes recent foot wound growing GBS and MSSA and BCX w/ MSSA and current foot wound culture and blood cultures growing MSSA only. Patient has had some I&D and may go for further procedures. Repeat blood cultures obtained 08/26 (about 25 hours ago) and are currently pending. Microbiology 08/23/24 10:06 Ankle Right Aerobic Culture - Final Staphylococcus aureus 08/21/24 11:29 Foot Right Anaerobic Culture - Final 08/21/24 11:29 Foot Right Aerobic Culture - Final Staphylococcus aureus 08/20/24 11:16 Blood Blood Culture - Final 08/20/24 11:04 Blood Blood Culture - Final Staphylococcus aureus 08/08/24 18:46 Foot Right Anaerobic Culture - Final 08/08/24 18:46 Foot Right Aerobic Culture - Final Staphylococcus aureus Group B Streptococcus isolated 08/08/24 18:46 Blood Blood Culture - Final Staphylococcus aureus 08/08/24 18:41 Blood Blood Culture - Final Staphylococcus aureus 06/08/24 15:39 Toe Right Second Anaerobic Culture - Final 06/08/24 15:39 Toe Right Second Aerobic Culture - Final Group B Streptococcus isolated 08/23/24 10:06 Ankle Right Anaerobic Culture - Preliminary Laboratory Tests 08/20/24 08/25/24 08/25/24 11:02 05:42 05:43 WBC 11.8 H 8.2 Creatinine 1.50 H 1.10 08/26/24 08/26/24 08/27/24 05:09 05:09 05:46 WBC 8.2 7.6 Creatinine 1.40 H 08/27/24 05:46 WBC Creatinine 1.30 Assessment/Recommendation/Discussion Spoke briefly with consulting and hospitalist providers. For targeted therapy for Complicated BSI 2/2 MSSA 2/2 MSSA Osteomyelitis (w/ potential GBS component for OM), current cefazolin therapy is appropriate. For discharge, and convenience of OPAT, providers agree that an Anti-Staph PCN (or PSP) may be more appropriate and that IV antibiotics were preferred. Were okay with either Oxacillin 12 g q 24h (over 24h) or Nafcillin 12g q24h (over 24h) whichever is approved. Duration should be 6 weeks from cleared culture (08/26) or most recent source control if that is still yet to occur. For drug, consider CMP monitoring (inlcuding LFTs) and CBC w/ or w/o DIFF to provider preference at least weekly initially, however defer all labs, including drug and disease state labs to providers. Given upcoming holiday, coverage will be sparse. If new information comes up please reach out directly to me. Will sign off and follow peripherally. Thank you for the interesting consult. Nicolas Duarte, PharmD Infectious Disease/Antimicrobial Stewardship Pharmacist 08/27/24; 0927 WBC 7.6 K/mm3 (4.5-10.0) 08/27/24 05:46 Creatinine 1.30 mg/dL (0.7-1.3) 08/27/24 05:46 Estim Creat Clear Calc 77 ml/min 08/27/24 05:46
--- NOTE | 2024-08-27 09:37 | PCNWS ---
Weekly nutritional screen. Patient is tolerating current diet with adequate intake, 100% all malsm. No weight loss reported. No nutritional needs at this time.
--- NOTE | 2024-08-27 11:45 | P.PNIM_ITS ---
Progress Note: A&P Assessment and Plan (1) Osteomyelitis of right foot: Code(s): M86.9 - Osteomyelitis, unspecified Status: Acute Assessment and Plan: * This is a 48-year-old male who recently underwent left 5th ray amputation in 2020, recently admitted for right foot infection underwent right TMA of 2nd toe in June 08, 2024. He has been followed up by Wound Care since discharge. He return to ER on August 08 with right ankle pain. CT of the foot at that time showed soft tissue edema without her remain hand Del Angel fluid collection or gas within the soft tissues blood culture and wound culture were obtained which came back positive for MSSA. He has not followed up since the positive blood culture and had not been on antibiotics. [facility] was [facility]24 where he presented for his routine wound care. Orthopedics evaluated the patient and noted wound getting worse as well as findings of positive blood culture recently which was not treated. He has also been feeling unwell and had some chills and night sweats. He also complained of right ankle pain that has been ongoing. * MR right ankle and MR right foot 08/21 showed: MPRESSION: 1. Likely septic arthritis at the ankle and subtalar joints with draining sinus tract draining from the anterior subtalar joint/sinus Tarsi to the dorsolateral hindfoot. 2. Associated osteomyelitis most prominent at the anterior process of the calcaneus also involving portions of the talus as detailed above. 3. Overlying myositis involving the intrinsic musculature at the dorsal midfoot with suggestion of tendinopathy and likely at least partial tears of the more superficial extensor digitorum longus tendons to the fifth and possibly fourth toes. 4. Complete tear and proximal retraction of the extensor hallucis longus and anterior tibial tendons, the former with likely associated septic tenosynovitis. 5. Chronic amputation of the second toe with suspicion for osteomyelitis at the distal diaphysis of the second metatarsal. 6. 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 7. Old healed fractures at the necks of the third and fourth metatarsals. * Patient started on Cefepime 2 gm IVPB q 8, Vancomycin 1,500 mg IVPB q 12, and Metronidiazole 500 mg PO q 8. Patient blood culture grew MSSA. Antibiotics switched to Ancef 2 gm ivpb q 8 on 08/24/24. * Orthopedic consulted. * Echo showed: Summary 1. Complete two-dimensional, color flow and Doppler transthoracic echocardiogram is performed. 2. LV size and wall thickness at upper limits of normal. Normal LV systolic function, ejection fraction about 60%. Grade 1 diastolic dysfunction. Normal RV size and systolic function. Mild left atrial enlargement. Normal mitral valve structure, trace MR. No hemodynamically significant aortic stenosis. Trace TR, RVSP 30 mmHg. * Repeated wound culture grew MSSA, receiving Ancef 2 gm IVPB q 8. * I&D of the right foot/ankle yesterday. Dressing with wound vac in place draining bloody drainage. No drainage noted on dressing. * Blood cultures grew Methicillin-susceptible Staphylococcus Aureus, receiving Ancef 2 gm IVPB q 8. * Redrew blood cultures on 08/26- no growth to date (2) Bacteremia: Code(s): R78.81 - Bacteremia Status: Acute Assessment and Plan: * 08/08/24 blood cultures grew Staphylococcus Aureus * 08/21/24 Blood cultures grew Methicillin-susceptible Staphylococcus Aureus * Ancef 2 gm IVPB q8. * WBC 7.6 * Afebrile (3) Type 2 diabetes mellitus, with long-term current use of insulin: Code(s): E11.9 - Type 2 diabetes mellitus without complications; Z79.4 - intermediate frame tender (current) use of insulin Status: Acute Assessment and Plan: * Hypoglycemic protocol * Metformin 500 mg PO BID * Aspart with meals changed to sliding scale yesterday with blood sugars 118-139 today. * Glargine 21 units subq at bedtime * 70/30 insulin 15 units subq BID (4) Acute right ankle pain: Code(s): M25.571 - Pain in right ankle and joints of right foot Status: Acute Assessment and Plan: * Acetaminophen 650 mg PO q 4 PRN. (5) HTN (hypertension): Code(s): I10 - Essential (primary) hypertension Status: Acute Assessment and Plan: * Blood pressure medication losartan-HCTZ 50-12.5 mg PO daily. * BP 134/79 (6) GERD (gastroesophageal reflux disease): Qualifiers: Esophagitis presence: esophagitis presence not specified Qualified Code(s): K21.9 - Gastro-esophageal reflux disease without esophagitis Code(s): K21.9 - Gastro-esophageal reflux disease without esophagitis Status: Acute Assessment and Plan: * Continue Famotidine 20 mg PO daily. Subjective Date/time seen: 08/27/24 11:45 Interval history: Patient had incision and drainage with irrigation and debridement of right foot and ankle joint with wound vac placement on 08/23/24. Patient denies pain, shortness of breath, nausea, vomiting, dizziness, or headache. Review of Systems Review of Systems: All systems reviewed & are unremarkable except as noted in HPI and below Exam Const: General: comfortable and no acute distress Eyes: Sclera: sclerae normal Resp: Effort & Inspection: normal respiratory effort Auscultation: clear to auscultation bilaterally Cardio: Rate: regular rate Rhythm: regular rhythm GI: GI Palp: Yes Soft to palpation Auscultation: normal bowel sounds Neuro: Speech: normal speech Extrem: Other: Right foot with wound vac in place and draining serosanguineous drainage. Psych: Mental Status: mental status grossly normal Affect: normal affect Objective Data Vital Signs Vital Signs: Vital Signs - 24 hr 08/26/24 14:00 08/26/24 21:22 08/26/24 20:00 Temperature 97.9 F 97.2 F L Pulse Rate 96 95 95 Respiratory Rate 18 16 16 Blood Pressure 129/80 151/88 H Pulse Oximetry 100 100 100 Oxygen Delivery Room Air 08/27/24 06:00 08/27/24 09:13 08/27/24 09:07 Temperature 97.6 F 97.1 F L Pulse Rate 93 81 Respiratory Rate 16 16 Blood Pressure 137/85 141/67 H Pulse Oximetry 100 96 Oxygen Delivery Room Air Intake/Output Intake/Output: Intake & Output 08/24/24 08/25/24 08/26/24 08/27/24 23:59 23:59 23:59 23:59 Intake Total 1550 1150 2587 790 Output Total 800 Balance 750 1150 2587 790 Meds/Results Medications: Active Medications Generic Name Dose Route Start Last Admin Trade Name Freq PRN Reason Stop Dose Admin Acetaminophen 650 mg 08/20/24 12:16 08/23/24 15:50 Acetaminophen 325 Mg Tablet PO 650 mg Q4H PRN Administration Mild Pain (1-3) or Fever Calcium Carbonate 200 mg 08/25/24 06:17 Calcium Carbonate (Tums) 500 Mg (200 Mg Elemental) PO Q6H PRN Indigestion Dextrose 12.5 gm 08/25/24 12:46 Dextrose 50% 25 Gm/50 Ml Syringe IV PUSH PRN PRN Hypoglycemia Protocol Famotidine 20 mg 08/25/24 09:45 08/27/24 09:06 Famotidine 20 Mg Tablet PO 20 mg DAILY ARLEEN Administration Glucagon 1 mg 08/25/24 12:46 Glucagon For Inj 1 Mg Vial IM PRN PRN Hypoglycemia Protocol Glucose 15 gm 08/25/24 12:46 Glucose Oral Gel 15 Gm Of Glucse In 37.5 Gm Tube PO PRN PRN Hypoglycemia Protocol Hydrochlorothiazide 12.5 mg 08/22/24 09:00 08/27/24 09:06 Hydrochlorothiazide 12.5 Mg Capsule PO 12.5 mg DAILY ARLEEN Administration Cefazolin Sodium 2 gm in 50 mls @ 100 mls/hr 08/24/24 08:00 08/27/24 05:56 Ancef 2 Gm/D5w 50 Ml IVPB Infused Q8HR ARLEEN Infusion Dextrose 1,000 mls @ 100 mls/hr 08/25/24 12:46 Dextrose 5% 1,000 Ml IVPB PRN PRN Hypoglycemia Protocol Insulin Aspart 4 - 8 units 08/25/24 17:00 08/27/24 09:07 Insulin Aspart (*Bkc) 100 Units/Ml SUB-Q Not Given TIDWM [facility] Protocol Insulin Glargine 21 units 08/20/24 21:00 08/26/24 21:16 Insulin Glargine (*Bkc) 100 Units/Ml 0.2 units/kg (21 units) 21 units SUB-Q Administration [facility] Insulin Human Isoph/Insulin Regular 15 units 08/23/24 17:00 08/27/24 09:10 Insulin Human Isophan/Regular 70/30 (*Bkc) 100 Units/Ml SUB-Q 15 units BIDWM ARLEEN Administration Losartan Potassium 50 mg 08/22/24 09:00 08/27/24 09:06 Losartan Potassium 50 Mg Tablet PO 50 mg DAILY ARLEEN Administration Metformin HCl 500 mg 08/23/24 17:00 08/27/24 09:07 Metformin Hcl Xr 500 Mg Tab.Sr.24h PO 500 mg BID ARLEEN Administration Miscellaneous Information 0 each 08/23/24 00:01 Semaglutide (Ozempic) Is Nonformulary - Can Patient Use From Home? XX 09/22/24 00:00 CLARIFY ARLEEN Morphine Sulfate 2 mg 08/23/24 11:50 Morphine Sulfate Inj (*Crx) 10 Mg/Ml Amp IV PUSH Q5M PRN Pain Non-Formulary Medication 0.25 mg 08/30/24 09:00 Semaglutide [Ozempic] SUB-Q 09/29/24 08:59 WEEKLY ARLEEN Ondansetron HCl 4 mg 08/20/24 17:21 08/23/24 12:29 Ondansetron Inj 4 Mg/2 Ml Vial IV PUSH 4 mg Q6H PRN Administration Nausea And Vomiting Ondansetron HCl 4 mg 08/23/24 11:50 Ondansetron Inj 4 Mg/2 Ml Vial IV PUSH ONCE PRN Nausea Radiology Results: ITS Impressions Ankle MRI 08/21/24 08:41 IMPRESSION: 1. Likely septic arthritis at the ankle and subtalar joints with draining sinus tract draining from the anterior subtalar joint/sinus Tarsi to the dorsolateral hindfoot. 2. Associated osteomyelitis most prominent at the anterior process of the c alcaneus also involving portions of the talus as detailed above. 3. Overlying myositis involving the intrinsic musculature at the dorsal midfoot with suggestion of tendinopathy and likely at least partial tears of the more superficial extensor digitorum longus tendons to the fifth and possibly fourth toes. 4. Complete tear and proximal retraction of the extensor hallucis longus and anterior tibial tendons, the former with likely associated septic tenosynovitis. 5. Chronic amputation of the second toe with suspicion for osteomyelitis at the distal diaphysis of the second metatarsal. 6. 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 7. Old healed fractures at the necks of the third and fourth metatarsals. Foot MRI 08/21/24 08:41 IMPRESSION: 1. Likely septic arthritis at the ankle and subtalar joints with draining sinus tract draining from the anterior subtalar joint/sinus Tarsi to the dorsolateral hindfoot. 2. Associated osteomyelitis most prominent at the anterior process of the calcaneus also involving portions of the talus as detailed above. 3. Overlying myositis involving the intrinsic musculature at the dorsal midfoot with suggestion of tendinopathy and likely at least partial tears of the more superficial extensor digitorum longus tendons to the fifth and possibly fourth toes. 4. Complete tear and proximal retraction of the extensor hallucis longus and anterior tibial tendons, the former with likely associated septic tenosynovitis. 5. Chronic amputation of the second toe with suspicion for osteomyelitis at the distal diaphysis of the second metatarsal. 6. 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 7. Old healed fractures at the necks of the third and fourth metatarsals. Labs Labs: Laboratory Results - last 24 hr 08/26/24 08/26/24 08/27/24 16:38 20:29 05:46 WBC 7.6 RBC 3.83 L Hgb 9.9 L Hct 31.5 L MCV 82.2 MCH 25.8 L MCHC 31.4 L RDW 14.1 Plt Count 488 H MPV 8.9 Immature Gran % (Auto) 0.5 Neut % (Auto) 59.8 Lymph % (Auto) 25.8 Jennings % (Auto) 8.8 H Eos % (Auto) 4.3 Baso % (Auto) 0.8 Lymph # (Auto) 1.97 Jennings # (Auto) 0.7 H Eos # (Auto) 0.3 Baso # (Auto) 0.1 Abs Immat Gran (auto) 0.04 H Absolute Neuts (auto) 4.6 Absolute Nucleated RBC 0.000 Nucleated RBC % 0.0 Sodium 137 Potassium 3.3 L Chloride 102 Carbon Dioxide 28 Anion Gap 7 BUN 17 Creatinine 1.30 Estim Creat Clear Calc 77 Estimated GFR 58 L Glucose 117 H POC Capillary Glucose 150 H 143 H Calcium 8.4 Total Bilirubin 0.6 AST 18 ALT 7 Alkaline Phosphatase 91 Total Protein 8.0 Albumin 3.4 L 08/27/24 08:00 WBC RBC Hgb Hct MCV MCH MCHC RDW Plt Count MPV Immature Gran % (Auto) Neut % (Auto) Lymph % (Auto) Jennings % (Auto) Eos % (Auto) Baso % (Auto) Lymph # (Auto) Jennings # (Auto) Eos # (Auto) Baso # (Auto) Abs Immat Gran (auto) Absolute Neuts (auto) Absolute Nucleated RBC Nucleated RBC % Sodium Potassium Chloride Carbon Dioxide Anion Gap BUN Creatinine Estim Creat Clear Calc Estimated GFR Glucose POC Capillary Glucose 118 H Calcium Total Bilirubin AST ALT Alkaline Phosphatase Total Protein Albumin Quality VTE Prophylaxis VTE prophylaxis: mechanical ordered
[2024-08-27 11:46] LABS: Glucose Point of Care 139 mg/dl (65-105)
[2024-08-27 14:00] VITALS: BP 134/79; PULSE 91; RESP 18; TEMP 36.8; O2SAT 100
--- NOTE | 2024-08-27 16:11 | PM.PNORT ---
Progress Note: A&P Assessment and Plan (1) Bacteremia: Code(s): R78.81 - Bacteremia Status: Acute Assessment and Plan: Blood cultures from hospital admission on 08/08 revealed Staph. Wound cultures from 08/08 are positive for Staph and group B strep. No IV or oral antibiotics since discharge on 08/09. Repeat blood cultures from 08/20 revealing Staph. Wound cultures from 08/20 reveal staph. New intraoperative wound cultures from 08/23 reveal staph. New repeat BC pending. IV antibiotics initiated by the hospitalist service. Will require IV antibiotics at discharge. Pharm ID consult for d/c planning. (2) Acute right ankle pain: Code(s): M25.571 - Pain in right ankle and joints of right foot Status: Acute Assessment and Plan: Preoperative MRI of the right ankle reveals septic arthritis at the ankle and subtalar joints with draining sinus tract from the anterior subtalar joint, sinus tarsi to the dorsolateral hindfoot. There is associated osteomyelitis in the anterior process of the calcaneus and portions of the talus. Myositis in the musculature in the dorsal midfoot noted. The previous amputation of the 2nd toe reveals possible suspicion for osteomyelitis at the distale metatarsal stump. POD #3: INCISION AND DRAINAGE WITH IRRIGATION AND DEBRIDEMENT RIGHT FOOT AND ANKLE JOINT WITH WOUND VAC PLACEMENT PWB RLE in FRACTURE BOOT ONLY. Walker or crutches for offloading. FALL RISK. Continue pain control. WOUND VAC in place. Plan for dressing changed tomorrow. Wound consult. SCDs. Incentive Spirometry Use reviewed. Bowel Regimen. Continue IV antibiotics. CRP improving. ESR still elevated. WBC normal. Afebrile. Dispo: Home with Home Health for Wound VAC dressing changes, IV antibiotics PICC line to be placed pending improvement in blood cultures. Wound VAC dressing change tomorrow. (3) Nausea: Code(s): R11.0 - Nausea Status: Acute Assessment and Plan: Still with c/o GERD. Started on medication by hospitalist service. ?GI consult for 3-4 week history of nausea and now GERD. Defer decision to medical team. (4) Diabetes mellitus: Qualifiers: Diabetes mellitus complication detail: with other skin complication Diabetes mellitus complication status: with skin complications Diabetes mellitus halfway insulin use: with halfway use Diabetes mellitus type: type 2 Qualified Code(s): E11.628 - Type 2 diabetes mellitus with other skin complications; Z79.4 - [facility] (current) use of insulin Code(s): E11.9 - Type 2 diabetes mellitus without complications Status: Acute (5) Amputated toe of right foot: Code(s): S98.131A - Complete traumatic amputation of one right lesser toe, initial encounter Status: Acute Assessment and Plan: History of right 2nd toe amputation. Wound appears stable. See operative notes for intraoperative findings at site of 2nd ray amputation. Plan Reviewed history, exam, radiographs and current labs with attending MD and covering surgeon, Dr. Reinoso, who agrees with current plan as indicated above. No further recommendations from Dr. Reinoso at this time. Subjective Subjective Date/Time Seen: 08/27/24 16:11 Post Op day: 4 Interval history: POD #4: INCISION AND DRAINAGE WITH IRRIGATION AND DEBRIDEMENT RIGHT FOOT AND ANKLE JOINT WITH WOUND VAC PLACEMENT Patient doing well. Improvement in pain with the ROM of the right foot/ankle. Wound VAC in place. Exam Const: General: alert, awake and well nourished Orientation/consciousness: patient oriented x3 Limitations: no limitations HENMT: Head: normal to inspection Ears: hearing grossly normal bilaterally Face/Nose/Sinus: Normal external nose present Face and sinus: normal facial exam Neck: Neck: normal visual inspection Extrem: Right lower extremity: ankle Details: tenderness Location: of the lateral malleolus and of the medial malleolus, swelling Details: laterally and posteriorly, abnormal ROM Details: pain with active ROM Details: with plantar flexion and with dorsiflexion and pain with passive ROM Details: with plantar flexion and with dorsiflexion, warmth and other (redness, laterally ); no ecchymosis and foot ( 2nd toe amputation) Details: abnormal to inspection, vascular exam Details: dorsalis pedis pulse present ( With Doppler), posterior tibial pulse present ( with Doppler) and abnormal capillary refill Location: of all toes, motor-sensory exam Details: light-touch abnormal and other ( see wound assessment below); abnormal capillary refill Other: Wound on the dorsal lateral aspect of the right foot with wound VAC in place and 100 cc of serosanguineous drainage. Erythema to the right lateral ankle significantly improved. Additional wound at the side of the 2nd toe amputation improved. No malodor. Psych: Appearance: well kempt Mental Status: mental status grossly normal Objective Data Vital Signs Vital Signs: Vital Signs - 24 hr 08/26/24 21:22 08/26/24 20:00 08/27/24 06:00 Temperature 36.2 C L 36.4 C Pulse Rate 95 95 93 Respiratory Rate 16 16 16 Blood Pressure 151/88 H 137/85 Pulse Oximetry 100 100 100 Oxygen Delivery Room Air 08/27/24 09:13 08/27/24 09:07 08/27/24 14:00 Temperature 36.2 C L 36.8 C Pulse Rate 81 91 Respiratory Rate 16 18 Blood Pressure 141/67 H 134/79 Pulse Oximetry 96 100 Oxygen Delivery Room Air Intake/Output Intake/Output: Intake & Output 08/24/24 08/25/24 08/26/24 08/27/24 23:59 23:59 23:59 23:59 Intake Total 1550 1150 2587 1070 Output Total 800 Balance 750 1150 2587 1070 Meds/Results Medications: Active Medications Generic Name Dose Route Start Last Admin Trade Name Freq PRN Reason Stop Dose Admin Acetaminophen 650 mg 08/20/24 12:16 08/23/24 15:50 Acetaminophen 325 Mg Tablet PO 650 mg Q4H PRN Administration Mild Pain (1-3) or Fever Calcium Carbonate 200 mg 08/25/24 06:17 Calcium Carbonate (Tums) 500 Mg (200 Mg Elemental) PO Q6H PRN Indigestion Dextrose 12.5 gm 08/25/24 12:46 Dextrose 50% 25 Gm/50 Ml Syringe IV PUSH PRN PRN Hypoglycemia Protocol Famotidine 20 mg 08/25/24 09:45 08/27/24 09:06 Famotidine 20 Mg Tablet PO 20 mg DAILY ARLEEN Administration Glucagon 1 mg 08/25/24 12:46 Glucagon For Inj 1 Mg Vial IM PRN PRN Hypoglycemia Protocol Glucose 15 gm 08/25/24 12:46 Glucose Oral Gel 15 Gm Of Glucse In 37.5 Gm Tube PO PRN PRN Hypoglycemia Protocol Hydrochlorothiazide 12.5 mg 08/22/24 09:00 08/27/24 09:06 Hydrochlorothiazide 12.5 Mg Capsule PO 12.5 mg DAILY ARLEEN Administration Cefazolin Sodium 2 gm in 50 mls @ 100 mls/hr 08/24/24 08:00 08/27/24 13:47 Ancef 2 Gm/D5w 50 Ml IVPB 100 mls/hr Q8HR ARLEEN Administration Dextrose 1,000 mls @ 100 mls/hr 08/25/24 12:46 Dextrose 5% 1,000 Ml IVPB PRN PRN Hypoglycemia Protocol Insulin Aspart 4 - 8 units 08/25/24 17:00 08/27/24 12:20 Insulin Aspart (*Bkc) 100 Units/Ml SUB-Q Not Given TIDWM [facility] Protocol Insulin Glargine 21 units 08/20/24 21:00 08/26/24 21:16 Insulin Glargine (*Bkc) 100 Units/Ml 0.2 units/kg (21 units) 21 units SUB-Q Administration HS ARLEEN Insulin Human Isoph/Insulin Regular 15 units 08/23/24 17:00 08/27/24 09:10 Insulin Human Isophan/Regular 70/30 (*Bkc) 100 Units/Ml SUB-Q 15 units BIDWM ARLEEN Administration Losartan Potassium 50 mg 08/22/24 09:00 08/27/24 09:06 Losartan Potassium 50 Mg Tablet PO 50 mg DAILY ARLEEN Administration Metformin HCl 500 mg 08/23/24 17:00 08/27/24 09:07 Metformin Hcl Xr 500 Mg Tab.Sr.24h PO 500 mg BID ARLEEN Administration Miscellaneous Information 0 each 08/23/24 00:01 Semaglutide (Ozempic) Is Nonformulary - Can Patient Use From Home? XX 09/22/24 00:00 CLARIFY [facility] Morphine Sulfate 2 mg 08/23/24 11:50 Morphine Sulfate Inj (*Crx) 10 Mg/Ml Amp IV PUSH Q5M PRN Pain Non-Formulary Medication 0.25 mg 08/30/24 09:00 Semaglutide [Ozempic] SUB-Q 09/29/24 08:59 WEEKLY [facility] Ondansetron HCl 4 mg 08/20/24 17:21 08/23/24 12:29 Ondansetron Inj 4 Mg/2 Ml Vial IV PUSH 4 mg Q6H PRN Administration Nausea And Vomiting Ondansetron HCl 4 mg 08/23/24 11:50 Ondansetron Inj 4 Mg/2 Ml Vial IV PUSH ONCE PRN Nausea Radiology Results: ITS Impressions Ankle MRI 08/21/24 08:41 IMPRESSION: 1. Likely septic arthritis at the ankle and subtalar joints with draining sinus tract draining from the anterior subtalar joint/sinus Tarsi to the dorsolateral hindfoot. 2. Associated osteomyelitis most prominent at the anterior process of the calcaneus also involving portions of the talus as detailed above. 3. Overlying myositis involving the intrinsic musculature at the dorsal midfoot with suggestion of tendinopathy and likely at least partial tears of the more superficial extensor digitorum longus tendons to the fifth and possibly fourth toes. 4. Complete tear and proximal retraction of the extensor hallucis longus and anterior tibial tendons, the former with likely associated septic tenosynovitis. 5. Chronic amputation of the second toe with suspicion for osteomyelitis at the distal diaphysis of the second metatarsal. 6. 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 7. Old healed fractures at the necks of the third and fourth metatarsals. Foot MRI 08/21/24 08:41 IMPRESSION: 1. Likely septic arthritis at the ankle and subtalar joints with draining sinus tract draining from the anterior subtalar joint/sinus Tarsi to the dorsolateral hindfoot. 2. Associated osteomyelitis most prominent at the anterior process of the calcaneus also involving portions of the talus as detailed above. 3. Overlying myositis involving the intrinsic musculature at the dorsal midfoot with suggestion of tendinopathy and likely at least partial tears of the more superficial extensor digitorum longus tendons to the fifth and possibly fourth toes. 4. Complete tear and proximal retraction of the extensor hallucis longus and anterior tibial tendons, the former with likely associated septic tenosynovitis. 5. Chronic amputation of the second toe with suspicion for osteomyelitis at the distal diaphysis of the second metatarsal. 6. 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 7. Old healed fractures at the necks of the third and fourth metatarsals. Labs Labs: Laboratory Results - last 24 hr 08/26/24 08/26/24 08/27/24 16:38 20:29 05:46 WBC 7.6 RBC 3.83 L Hgb 9.9 L Hct 31.5 L MCV 82.2 MCH 25.8 L MCHC 31.4 L RDW 14.1 Plt Count 488 H MPV 8.9 Immature Gran % (Auto) 0.5 Neut % (Auto) 59.8 Lymph % (Auto) 25.8 Sullivan % (Auto) 8.8 H Eos % (Auto) 4.3 Baso % (Auto) 0.8 Lymph # (Auto) 1.97 Sullivan # (Auto) 0.7 H Eos # (Auto) 0.3 Baso # (Auto) 0.1 Abs Immat Gran (auto) 0.04 H Absolute Neuts (auto) 4.6 Absolute Nucleated RBC 0.000 Nucleated RBC % 0.0 Sodium 137 Potassium 3.3 L Chloride 102 Carbon Dioxide 28 Anion Gap 7 BUN 17 Creatinine 1.30 Estim Creat Clear Calc 77 Estimated GFR 58 L Glucose 117 H POC Capillary Glucose 150 H 143 H Calcium 8.4 Total Bilirubin 0.6 AST 18 ALT 7 Alkaline Phosphatase 91 Total Protein 8.0 Albumin 3.4 L 08/27/24 08/27/24 08:00 11:41 WBC RBC Hgb Hct MCV MCH MCHC RDW Plt Count MPV Immature Gran % (Auto) Neut % (Auto) Lymph % (Auto) Sullivan % (Auto) Eos % (Auto) Baso % (Auto) Lymph # (Auto) Sullivan # (Auto) Eos # (Auto) Baso # (Auto) Abs Immat Gran (auto) Absolute Neuts (auto) Absolute Nucleated RBC Nucleated RBC % Sodium Potassium Chloride Carbon Dioxide Anion Gap BUN Creatinine Estim Creat Clear Calc Estimated GFR Glucose POC Capillary Glucose 118 H 139 H Calcium Total Bilirubin AST ALT Alkaline Phosphatase Total Protein Albumin
[2024-08-27 16:44] LABS: Glucose Point of Care 108 mg/dl (65-105)
[2024-08-27 20:39] VITALS: BP 137/80; PULSE 100; RESP 16; TEMP 36.6; O2SAT 99
[2024-08-27] MEDS: INSULIN GLARGINE (*BKC) 100 UNITS/ML 21 UNITS SUB-Q (20:59)
[2024-08-27 21:12] LABS: Glucose Point of Care 122 mg/dl (65-105)
[2024-08-28] MEDS: ceFAZolin 2 GM/D5W 50 ML 2 GM/50 ML BAG IVPB ×3 (05:22→21:17)
[2024-08-28 05:31] VITALS: BP 141/84; PULSE 100; RESP 16; TEMP 36.5; O2SAT 100
[2024-08-28 05:42] LABS: Basophils Percent Auto 0.5 % (0.2-1.2); Eosinophils Absolute Auto 0.3 K/mm3 (0-0.3); Eosinophils Percent Auto 3.6 % (0-4.4); Hematocrit 30.8 % (42.0-52.0); Hemoglobin 9.8 g/dL (14.0-18.0); Immature Granulocyte Absolute 0.04 K/mm3 (0.00-0.031); Immature Granulocyte Percent A 0.5 % (0-0.5); Lymphocytes Absolute Auto 2.01 K/mm3 (0.9-3.2); Mean Corpuscular HGB Conc 31.8 g/dl (32-36); Mean Corpuscular Volume 81.7 fl (80-100); Mean Platelet Volume 8.6 fl (7.4-10.4); Monocytes Absolute Auto 0.8 K/mm3 (0.1-0.6); Monocytes Percent Auto 9.4 % (2.6-8.5); Neutrophils Absolute Auto 5.2 K/mm3 (1.3-6.7); Platelet Count Result 466 k/mm3 (150-375); Red Blood Count 3.77 M/mm3 (4.6-6.20); Red Cell Distribution Width 14.2 % (11.5-14.5); White Blood Count 8.4 K/mm3 (4.5-10.0)
[2024-08-28 05:52] LABS: Alanine Aminotransferase 7 U/L (6-50); Albumin Level 3.6 g/dL (3.5-5.1); Alkaline Phosphatase 99 U/L (38-126); Anion Gap 7 mmol/L (4-12); Aspartate Amino Transferase 20 U/L (17-59); Bilirubin,Total 0.6 mg/dL (0.2-1.3); Blood Urea Nitrogen 16 mg/dL (9-20); Calcium 8.5 mg/dL (8.4-10.2); Carbon Dioxide 29 mmol/L (22-30); Chloride 103 mmol/L (98-107); Estimated CRCL calculation 77 ml/min; Estimated Glomerular Filt Rate 58; Glucose 90 mg/dL (65-110); Potassium 3.3 mmol/L (3.4-5.0); Sodium 139 mmol/L (137-145)
[2024-08-28 07:57] LABS: Glucose Point of Care 97 mg/dl (65-105)
[2024-08-28 08:06] VITALS: RESP 16; O2SAT 100
--- NOTE | 2024-08-28 08:15 | P.PNOP_ITS ---
Progress Note: A&P Assessment and Plan (1) Type 2 diabetes mellitus, with long-term current use of insulin: Qualifiers: Diabetes mellitus complication status: with neurologic complications Diabetes mellitus complication detail: with polyneuropathy Qualified Code(s): E11.42 - Type 2 diabetes mellitus with diabetic polyneuropathy; Z79.4 - rodeo clown (current) use of insulin Code(s): E11.9 - Type 2 diabetes mellitus without complications; Z79.4 - rodeo clown (current) use of insulin Status: Acute (2) Septic arthritis of ankle and foot region: Code(s): M00.9 - Pyogenic arthritis, unspecified Status: Acute (3) Osteomyelitis of right foot: Qualifiers: Osteomyelitis type: other acute Qualified Code(s): M86.171 - Other acute osteomyelitis, right ankle and foot Code(s): M86.9 - Osteomyelitis, unspecified Status: Acute Assessment and Plan: Postop day 5 status post debridement right ankle and foot. Wound VAC in place. Wound VAC dressing change today. Culture showing pansensitive Staph. Blood cultures most recent negative to date. Long discussion this morning regarding treatment options for salvage of the foot versus amputation. Risks, benefits and alternatives discussed in detail. His questions were answered. He has declined amputation at this time. He would like to try to salvage the foot. We discussed the length of time that would be involved and the necessary steps including possible further surgeries In the future. Plan for PICC line long-term antibiotics. Plan to continue wound VAC. Fracture boot when. Will follow in Wound Clinic. Plan Okay for discharge home From orthopedic standpoint when PICC line and wound VAC have been approved. Subjective Subjective Date/Time Seen: 08/28/24 08:15 Post Op day: 5 Principal diagnosis: Right foot osteomyelitis with septic arthritis Interval history: POD #5: I&D of the right ankle and subtalar joint with application wound VAC. Patient without new complaints. Improvement in pain with the ROM of the right foot/ankle. Wound VAC in place. Exam Const: General: alert and awake Orientation/consciousness: patient oriented x3 Limitations: no limitations HENMT: Head: normal to inspection Neck: Neck: normal visual inspection Extrem: Right lower extremity: ankle Details: tenderness Location: of the lateral malleolus and of the medial malleolus, swelling Details: laterally and posteriorly, abnormal ROM Details: pain with active ROM Details: with plantar flexion and with dorsiflexion and pain with passive ROM Details: with plantar flexion and with dorsiflexion, warmth and other (redness, laterally ); no ecchymosis and foot ( 2nd toe amputation) Details: abnormal to inspection, vascular exam Details: abnormal capillary refill Location: of all toes; dorsalis pedis pulse absent and posterior tibial pulse absent and motor-sensory exam Details: light-touch abnormal; abnormal capillary refill Other: Wound on the dorsal lateral aspect of the right foot with wound VAC in place. Erythema to the right lateral ankle significantly improved. Additional wound at the side of the 2nd toe amputation improved. No malodor. wound VAC dressing changed. Wound nurses present for exact wound dimensions. Objective Data Vital Signs Vital Signs: Vital Signs - 24 hr 08/27/24 09:13 08/27/24 09:07 08/27/24 14:00 Temperature 97.1 F L 98.3 F Pulse Rate 81 91 Respiratory Rate 16 18 Blood Pressure 141/67 H 134/79 Pulse Oximetry 96 100 Oxygen Delivery Room Air 08/27/24 20:39 08/27/24 20:00 08/28/24 05:31 Temperature 97.8 F 97.7 F Pulse Rate 100 100 Respiratory Rate 16 16 Blood Pressure 137/80 141/84 H Pulse Oximetry 99 100 Oxygen Delivery Room Air 08/28/24 08:06 Temperature Pulse Rate Respiratory Rate 16 Blood Pressure Pulse Oximetry 100 Oxygen Delivery Room Air Intake/Output Intake/Output: Intake & Output 08/25/24 08/26/24 08/27/24 08/28/24 23:59 23:59 23:59 23:59 Intake Total 1150 2587 2200 600 Balance 1150 2587 2200 600 Meds/Results Medications: Active Medications Generic Name Dose Route Start Last Admin Trade Name Freq PRN Reason Stop Dose Admin Acetaminophen 650 mg 08/20/24 12:16 08/23/24 15:50 Acetaminophen 325 Mg Tablet PO 650 mg Q4H PRN Administration Mild Pain (1-3) or Fever Calcium Carbonate 200 mg 08/25/24 06:17 Calcium Carbonate (Tums) 500 Mg (200 Mg Elemental) PO Q6H PRN Indigestion Dextrose 12.5 gm 08/25/24 12:46 Dextrose 50% 25 Gm/50 Ml Syringe IV PUSH PRN PRN Hypoglycemia Protocol Famotidine 20 mg 08/25/24 09:45 08/27/24 09:06 Famotidine 20 Mg Tablet PO 20 mg DAILY ARLEEN Administration Glucagon 1 mg 08/25/24 12:46 Glucagon For Inj 1 Mg Vial IM PRN PRN Hypoglycemia Protocol Glucose 15 gm 08/25/24 12:46 Glucose Oral Gel 15 Gm Of Glucse In 37.5 Gm Tube PO PRN PRN Hypoglycemia Protocol Hydrochlorothiazide 12.5 mg 08/22/24 09:00 08/27/24 09:06 Hydrochlorothiazide 12.5 Mg Capsule PO 12.5 mg DAILY ARLEEN Administration Cefazolin Sodium 2 gm in 50 mls @ 100 mls/hr 08/24/24 08:00 08/28/24 05:52 Ancef 2 Gm/D5w 50 Ml IVPB Infused Q8HR ARLEEN Infusion Dextrose 1,000 mls @ 100 mls/hr 08/25/24 12:46 Dextrose 5% 1,000 Ml IVPB PRN PRN Hypoglycemia Protocol Insulin Aspart 4 - 8 units 08/25/24 17:00 08/28/24 08:00 Insulin Aspart (*Bkc) 100 Units/Ml SUB-Q Not Given TIDWM [facility] Protocol Insulin Glargine 21 units 08/20/24 21:00 08/27/24 20:59 Insulin Glargine (*Bkc) 100 Units/Ml 0.2 units/kg (21 units) 21 units SUB-Q Administration [facility] Insulin Human Isoph/Insulin Regular 15 units 08/23/24 17:00 08/28/24 08:11 Insulin Human Isophan/Regular 70/30 (*Bkc) 100 Units/Ml SUB-Q Not Given BIDWM [facility] Losartan Potassium 50 mg 08/22/24 09:00 08/27/24 09:06 Losartan Potassium 50 Mg Tablet PO 50 mg DAILY ARLEEN Administration Metformin HCl 500 mg 08/23/24 17:00 08/27/24 17:20 Metformin Hcl Xr 500 Mg Tab.Sr.24h PO 500 mg BID ARLEEN Administration Miscellaneous Information 0 each 08/23/24 00:01 Semaglutide (Ozempic) Is Nonformulary - Can Patient Use From Home? XX 09/22/24 00:00 CL[facility]IFY [facility] Morphine Sulfate 2 mg 08/23/24 11:50 Morphine Sulfate Inj (*Crx) 10 Mg/Ml Amp IV PUSH Q5M PRN Pain Non-Formulary Medication 0.25 mg 08/30/24 09:00 Semaglutide [Ozempic] SUB-Q 09/29/24 08:59 WEEKLY ARLEEN Ondansetron HCl 4 mg 08/20/24 17:21 08/23/24 12:29 Ondansetron Inj 4 Mg/2 Ml Vial IV PUSH 4 mg Q6H PRN Administration Nausea And Vomiting Ondansetron HCl 4 mg 08/23/24 11:50 Ondansetron Inj 4 Mg/2 Ml Vial IV PUSH ONCE PRN Nausea Radiology Results: ITS Impressions Ankle MRI 08/21/24 08:41 IMPRESSION: 1. Likely septic arthritis at the ankle and subtalar joints with draining sinus tract draining from the anterior subtalar joint/sinus Tarsi to the dorsolateral hindfoot. 2. Associated osteomyelitis most prominent at the anterior process of the calcaneus also involving portions of the talus as detailed above. 3. Overlying myositis involving the intrinsic musculature at the dorsal midfoot with suggestion of tendinopathy and likely at least partial tears of the more superficial extensor digitorum longus tendons to the fifth and possibly fourth toes. 4. Complete tear and proximal retraction of the extensor hallucis longus and anterior tibial tendons, the former with likely associated septic tenosynovitis. 5. Chronic amputation of the second toe with suspicion for osteomyelitis at the distal diaphysis of the second metatarsal. 6. 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 7. Old healed fractures at the necks of the third and fourth metatarsals. Foot MRI 08/21/24 08:41 IMPRESSION: 1. Likely septic arthritis at the ankle and subtalar joints with draining sinus tract draining from the anterior subtalar joint/sinus Tarsi to the dorsolateral hindfoot. 2. Associated osteomyelitis most prominent at the anterior process of the calcaneus also involving portions of the talus as detailed above. 3. Overlying myositis involving the intrinsic musculature at the dorsal midfoot with suggestion of tendinopathy and likely at least partial tears of the more superficial extensor digitorum longus tendons to the fifth and possibly fourth toes. 4. Complete tear and proximal retraction of the extensor hallucis longus and anterior tibial tendons, the former with likely associated septic tenosynovitis. 5. Chronic amputation of the second toe with suspicion for osteomyelitis at the distal diaphysis of the second metatarsal. 6. 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 7. Old healed fractures at the necks of the third and fourth metatarsals. Labs Labs: Laboratory Results - last 24 hr 08/27/24 08/27/24 08/27/24 11:41 16:40 20:38 WBC RBC Hgb Hct MCV MCH MCHC RDW Plt Count MPV Immature Gran % (Auto) Neut % (Auto) Lymph % (Auto) [place] % (Auto) Eos % (Auto) Baso % (Auto) Lymph # (Auto) [place] # (Auto) Eos # (Auto) Baso # (Auto) Abs Immat Gran (auto) Absolute Neuts (auto) Absolute Nucleated RBC Nucleated RBC % Sodium Potassium Chloride Carbon Dioxide Anion Gap BUN Creatinine Estim Creat Clear Calc Estimated GFR Glucose POC Capillary Glucose 139 H 108 H 122 H Calcium Total Bilirubin AST ALT Alkaline Phosphatase Total Protein Albumin 08/28/24 08/28/24 05:26 07:53 WBC 8.4 RBC 3.77 L Hgb 9.8 L Hct 30.8 L MCV 81.7 MCH 26.0 MCHC 31.8 L RDW 14.2 Plt Count 466 H MPV 8.6 Immature Gran % (Auto) 0.5 Neut % (Auto) 62.0 Lymph % (Auto) 24.0 [place] % (Auto) 9.4 H Eos % (Auto) 3.6 Baso % (Auto) 0.5 Lymph # (Auto) 2.01 [place] # (Auto) 0.8 H Eos # (Auto) 0.3 Baso # (Auto) 0.0 Abs Immat Gran (auto) 0.04 H Absolute Neuts (auto) 5.2 Absolute Nucleated RBC 0.000 Nucleated RBC % 0.0 Sodium 139 Potassium 3.3 L Chloride 103 Carbon Dioxide 29 Anion Gap 7 BUN 16 Creatinine 1.30 Estim Creat Clear Calc 77 Estimated GFR 58 L Glucose 90 POC Capillary Glucose 97 Calcium 8.5 Total Bilirubin 0.6 AST 20 ALT 7 Alkaline Phosphatase 99 Total Protein 8.0 Albumin 3.6
[2024-08-28] MEDS: hydroCHLOROthiazide 12.5 MG CAPSULE PO (08:51)
[2024-08-28] MEDS: LOSARTAN POTASSIUM 50 MG TABLET PO (08:51)
[2024-08-28] MEDS: FAMOTIDINE 20 MG TABLET PO (08:51)
[2024-08-28] MEDS: metFORMIN HCL XR 500 MG TAB.SR.24H PO ×2 (08:51→16:46)
[2024-08-28] MEDS: LIDOCAINE HCL 1% PF INJ 5 ML VIAL INFILTRATE (09:15)
[2024-08-28] MEDS: POTASSIUM CHLORIDE 20 MEQ ER TABLET 40 MEQ PO (10:08)
[2024-08-28 11:31] LABS: Glucose Point of Care 138 mg/dl (65-105)
[2024-08-28] MEDS: CENTRAL LINE FLUSH 10 ML IV PUSH ×2 (13:19→21:17)
[2024-08-28 14:00] VITALS: BP 124/85; PULSE 97; RESP 16; TEMP 36.1; O2SAT 99
--- NOTE | 2024-08-28 14:39 | P.PNIM_ITS ---
Progress Note: A&P Assessment and Plan (1) Osteomyelitis of right foot: Qualifiers: Osteomyelitis type: other acute Qualified Code(s): M86.171 - Other acute osteomyelitis, right ankle and foot Code(s): M86.9 - Osteomyelitis, unspecified Status: Acute Assessment and Plan: S/p left 5th ray amputation in 2020, recently admitted for right foot infection underwent right TMA of 2nd toe in June 08, 2024. He has been followed up by Wound Care since discharge. Returned to ER on August 08 with right ankle pain. CT of the foot at that time showed soft tissue edema without her remain hand [place] Angel fluid collection or gas within the soft tissues blood culture and wound culture were obtained which came back positive for MSSA. He has not followed up since the positive blood culture and had not been on antibiotics. Iin the [facility] on 08/20/24 where he presented for his routine wound care. Orthopedics evaluated the patient and noted wound getting worse as well as findings of positive blood culture recently which was not treated. - Antibiotics: started on cefepime 2 gm IVPB q 8, Vancomycin 1,500 mg IVPB q 12, and Metronidiazole 500 mg PO q 8. Patient blood culture grew MSSA., switched to Ancef 2 gm ivpb q 8 on 08/24/24. - Blood cultures 08/23: staph aureus - Repeat blood cultures 08/26: NGTD - MR right ankle and MR right foot 08/21 showed: 1. Likely septic arthritis at the ankle and subtalar joints with draining sinus tract draining from the anterior subtalar joint/sinus Tarsi to the dorsolateral hindfoot. 2. Associated osteomyelitis most prominent at the anterior process of the calcaneus also involving portions of the talus as detailed above. 3. Overlying myositis involving the intrinsic musculature at the dorsal midfoot with suggestion of tendinopathy and likely at least partial tears of the more superficial extensor digitorum longus tendons to the fifth and possibly fourth toes. 4. Complete tear and proximal retraction of the extensor hallucis longus and anterior tibial tendons, the former with likely associated septic tenosynovitis. 5. Chronic amputation of the second toe with suspicion for osteomyelitis at the distal diaphysis of the second metatarsal. 6.. 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 7. Old healed fractures at the necks of the third and fourth metatarsals. - Echo: ejection fraction about 60%. Grade 1 diastolic dysfunction. - Monitor vital signs, I&Os, neuro status and patient is a fall risk - Monitor serum electrolytes, CBC, cultures, WBC and temp curve - PICC line placed will require nursing home antibiotics, per ID pharm patient will be discharged on Oxacillin 12 g q 24h (over 24h) or Nafcillin 12g q24h (over 24h). Care coordination working on setting up home health. - Orthopedic consulted s/p I&D of the right foot/ankle with wound vac placement on 08/[address] Kemar Sunshine for discharge home From orthopedic standpoint when PICC line and wound VAC have been approved. (2) Bacteremia: Code(s): R78.81 - Bacteremia Status: Acute Assessment and Plan: - Blood cultures 08/23: staph aureus - Repeat blood cultures 08/26: NGTD - Antibiotics: started on cefepime 2 gm IVPB q 8, Vancomycin 1,500 mg IVPB q 12, and Metronidiazole 500 mg PO q 8. Patient blood culture grew MSSA., switched to Ancef 2 gm ivpb q 8 on 08/24/24. (3) Type 2 diabetes mellitus, with long-term current use of insulin: Qualifiers: Diabetes mellitus complication status: with neurologic complications Diabetes mellitus complication detail: with polyneuropathy Qualified Code(s): E11.42 - Type 2 diabetes mellitus with diabetic polyneuropathy; Z79.4 - exterminator (current) use of insulin Code(s): E11.9 - Type 2 diabetes mellitus without complications; Z79.4 - longterm (current) use of insulin Status: Acute Assessment and Plan: * Hypoglycemic protocol * Metformin 500 mg PO BID * Aspart with meals changed to sliding scale yesterday with blood sugars 118-139 today. * Glargine 21 units subq at bedtime * 70/30 insulin 15 units subq BID (4) HTN (hypertension): Code(s): I10 - Essential (primary) hypertension Status: Acute Assessment and Plan: Chronic, continue home medications - losartan-HCTZ 50-12.5 mg PO daily - monitor (5) GERD (gastroesophageal reflux disease): Qualifiers: Esophagitis presence: esophagitis presence not specified Qualified Code(s): K21.9 - Gastro-esophageal reflux disease without esophagitis Code(s): K21.9 - Gastro-esophageal reflux disease without esophagitis Status: Acute Assessment and Plan: Continue Famotidine 20 mg PO daily. Time Spent With Patient Time with patient: 25 - 35 minutes Subjective Date/time seen: 08/28/24 14:39 Interval history: Patient is pleasant lying comfortably in bed. He states that he has no pain at this time. Ortho saw patient and the wound vac dressing was changed. 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 Per care coordination home health will not be able to care for patient until monday. Patient will likely need to remain inpatient until that time for ongoing antibotics. He has no complaints at this time denying chest pain, shortness of breath, palpitations, nausea/vomiting and abdominal pain. Review of Systems Review of Systems: All systems reviewed & are unremarkable except as noted in HPI and below Exam Narrative: AF HR 97 RR 16 SpO2 99 BP 124/85 General: male in no acute respiratory distress who is nontoxic appearing, lying semi recumbent in bed. HEENT: Normocephalic. Atraumatic. Extraocular movement intact. Sclera clear and anicteric. No facial asymmetry. Chest: Lungs are clear to auscultation bilaterally. No wheezes or crackles. CV: Heart was regular rate and rhythm. S1/S2. No murmurs, gallops, or rubs. Abd: Abdomen was soft. Nontender. Nondistended. Positive bowel sounds. No organomegaly or masses. Ext: No clubbing, cyanosis, or edema. Wound dressing to the right foot with wound vac in place. Neuro: Patient is alert and oriented x4. Cranial nerves 2-12 are intact. Speech is clear. Objective Data Vital Signs Vital Signs: Vital Signs - 24 hr 08/27/24 20:39 08/27/24 20:00 08/28/24 05:31 Temperature 97.8 F 97.7 F Pulse Rate 100 100 Respiratory Rate 16 16 Blood Pressure 137/80 141/84 H Pulse Oximetry 99 100 Oxygen Delivery Room Air 08/28/24 08:06 08/28/24 14:00 Temperature 96.9 F L Pulse Rate 97 Respiratory Rate 16 16 Blood Pressure 124/85 Pulse Oximetry 100 99 Oxygen Delivery Room Air Intake/Output Intake/Output: Intake & Output 11/08/26/24 08/27/24 08/28/24 23:59 23:59 23:59 23:59 Intake Total 1150 2587 2200 1130 Output Total 400 Balance 1150 2587 2200 730 Meds/Results Medications: Active Medications Generic Name Dose Route Start Last Admin Trade Name Freq PRN Reason Stop Dose Admin Acetaminophen 650 mg 08/20/24 12:16 08/23/24 15:50 Acetaminophen 325 Mg Tablet PO 650 mg Q4H PRN Administration Mild Pain (1-3) or Fever Calcium Carbonate 200 mg 08/25/24 06:17 Calcium Carbonate (Tums) 500 Mg (200 Mg Elemental) PO Q6H PRN Indigestion Dextrose 12.5 gm 08/25/24 12:46 Dextrose 50% 25 Gm/50 Ml Syringe IV PUSH PRN PRN Hypoglycemia Protocol Glucagon 1 mg 08/25/24 12:46 Glucagon For Inj 1 Mg Vial IM PRN PRN Hypoglycemia Protocol Glucose 15 gm 08/25/24 12:46 Glucose Oral Gel 15 Gm Of Glucse In 37.5 Gm Tube PO PRN PRN Hypoglycemia Protocol Hydrochlorothiazide 12.5 mg 08/22/24 09:00 08/28/24 08:51 Hydrochlorothiazide 12.5 Mg Capsule PO 12.5 mg DAILY ARLEEN Administration Cefazolin Sodium 2 gm in 50 mls @ 100 mls/hr 08/24/24 08:00 08/28/24 13:50 Ancef 2 Gm/D5w 50 Ml IVPB Infused Q8HR ARLEEN Infusion Dextrose 1,000 mls @ 100 mls/hr 08/25/24 12:46 Dextrose 5% 1,000 Ml IVPB PRN PRN Hypoglycemia Protocol Insulin Aspart 4 - 8 units 08/25/24 17:00 08/28/24 11:41 Insulin Aspart (*Bkc) 100 Units/Ml SUB-Q Not Given TIDWM [facility] Protocol Insulin Glargine 21 units 08/20/24 21:00 08/27/24 20:59 Insulin Glargine (*Bkc) 100 Units/Ml 0.2 units/kg (21 units) 21 units SUB-Q Administration [facility] Insulin Human Isoph/Insulin Regular 15 units 08/23/24 17:00 08/28/24 08:11 Insulin Human Isophan/Regular 70/30 (*Bkc) 100 Units/Ml SUB-Q Not Given BIDWM ARLEEN Losartan Potassium 50 mg 08/22/24 09:00 08/28/24 08:51 Losartan Potassium 50 Mg Tablet PO 50 mg DAILY ARLEEN Administration Metformin HCl 500 mg 08/23/24 17:00 08/28/24 08:51 Metformin Hcl Xr 500 Mg Tab.Sr.24h PO 500 mg BID ARLEEN Administration Miscellaneous Information 0 each 08/23/24 00:01 08/28/24 10:16 Semaglutide (Ozempic) Is Nonformulary - Can Patient Use From Home? XX 09/22/24 00:00 Not Given [facility] Non-Formulary Medication 0.25 mg 08/30/24 09:00 Semaglutide [Ozempic] SUB-Q 09/29/24 08:59 WEEKLY ARLEEN Ondansetron HCl 4 mg 08/20/24 17:21 08/23/24 12:29 Ondansetron Inj 4 Mg/2 Ml Vial IV PUSH 4 mg Q6H PRN Administration Nausea And Vomiting Ondansetron HCl 4 mg 08/23/24 11:50 Ondansetron Inj 4 Mg/2 Ml Vial IV PUSH ONCE PRN Nausea Sodium Chloride 10 ml 08/28/24 14:00 08/28/24 13:19 Central Line Flush IV PUSH 10 ml Q8HR ARLEEN Administration Sodium Chloride 10 ml 08/28/24 10:38 Central Line Flush IV PUSH PRN PRN with TPN bag changes Sodium Chloride 20 ml 08/28/24 10:38 Central Line Flush IV PUSH PRN PRN after blood draws Radiology Results: ITS Impressions Ankle MRI 08/21/24 08:41 IMPRESSION: 1. Likely septic arthritis at the ankle and subtalar joints with draining sinus tract draining from the anterior subtalar joint/sinus Tarsi to the dorsolateral hindfoot. 2. Associated osteomyelitis most prominent at the anterior process of the calcaneus also involving portions of the talus as detailed above. 3. Overlying myositis involving the intrinsic musculature at the dorsal midfoot with suggestion of tendinopathy and likely at least partial tears of the more superficial extensor digitorum longus tendons to the fifth and possibly fourth toes. 4. Complete tear and proximal retraction of the extensor hallucis longus and anterior tibial tendons, the former with likely associated septic tenosynovitis. 5. Chronic amputation of the second toe with suspicion for osteomyelitis at the distal diaphysis of the second metatarsal. 6. 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 7. Old healed fractures at the necks of the third and fourth metatarsals. Foot MRI 08/21/24 08:41 IMPRESSION: 1. Likely septic arthritis at the ankle and subtalar joints with draining sinus tract draining from the anterior subtalar joint/sinus Tarsi to the dorsolateral hindfoot. 2. Associated osteomyelitis most prominent at the anterior process of the calcaneus also involving portions of the talus as detailed above. 3. Overlying myositis involving the intrinsic musculature at the dorsal midfoot with suggestion of tendinopathy and likely at least partial tears of the more superficial extensor digitorum longus tendons to the fifth and possibly fourth toes. 4. Complete tear and proximal retraction of the extensor hallucis longus and anterior tibial tendons, the former with likely associated septic tenosynovitis. 5. Chronic amputation of the second toe with suspicion for osteomyelitis at the distal diaphysis of the second metatarsal. 6. 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 7. Old healed fractures at the necks of the third and fourth metatarsals. Chest X-Ray 08/28/24 09:58 IMPRESSION: No acute cardiopulmonary pathology. Labs Labs: Laboratory Results - last 24 hr 08/27/24 08/27/24 08/28/24 16:40 20:38 05:26 WBC 8.4 RBC 3.77 L Hgb 9.8 L Hct 30.8 L MCV 81.7 MCH 26.0 MCHC 31.8 L RDW 14.2 Plt Count 466 H MPV 8.6 Immature Gran % (Auto) 0.5 Neut % (Auto) 62.0 Lymph % (Auto) 24.0 [place] % (Auto) 9.4 H Eos % (Auto) 3.6 Baso % (Auto) 0.5 Lymph # (Auto) 2.01 [place] # (Auto) 0.8 H Eos # (Auto) 0.3 Baso # (Auto) 0.0 Abs Immat Gran (auto) 0.04 H Absolute Neuts (auto) 5.2 Absolute Nucleated RBC 0.000 Nucleated RBC % 0.0 Sodium 139 Potassium 3.3 L Chloride 103 Carbon Dioxide 29 Anion Gap 7 BUN 16 Creatinine 1.30 Estim Creat Clear Calc 77 Estimated GFR 58 L Glucose 90 POC Capillary Glucose 108 H 122 H Calcium 8.5 Total Bilirubin 0.6 AST 20 ALT 7 Alkaline Phosphatase 99 Total Protein 8.0 Albumin 3.6 08/28/24 08/28/24 07:53 11:26 WBC RBC Hgb Hct MCV MCH MCHC RDW Plt Count MPV Immature Gran % (Auto) Neut % (Auto) Lymph % (Auto) [place] % (Auto) Eos % (Auto) Baso % (Auto) Lymph # (Auto) [place] # (Auto) Eos # (Auto) Baso # (Auto) Abs Immat Gran (auto) Absolute Neuts (auto) Absolute Nucleated RBC Nucleated RBC % Sodium Potassium Chloride Carbon Dioxide Anion Gap BUN Creatinine Estim Creat Clear Calc Estimated GFR Glucose POC Capillary Glucose 97 138 H Calcium Total Bilirubin AST ALT Alkaline Phosphatase Total Protein Albumin Quality VTE Prophylaxis VTE prophylaxis: mechanical ordered
[2024-08-28 16:41] LABS: Glucose Point of Care 151 mg/dl (65-105)
[2024-08-28] MEDS: INSULIN HUMAN ISOPHAN/REGULAR 70/30 (*BKC) 100 UNITS/ML 15 UNITS SUB-Q (16:47)
[2024-08-28] MEDS: INSULIN GLARGINE (*BKC) 100 UNITS/ML 21 UNITS SUB-Q (21:12)
[2024-08-28 21:22] LABS: Glucose Point of Care 148 mg/dl (65-105)
[2024-08-28 21:38] VITALS: BP 138/91; PULSE 84; RESP 18; TEMP 36.1; O2SAT 99
[2024-08-29] MEDS: CENTRAL LINE FLUSH 20 ML IV PUSH (05:17)
[2024-08-29] MEDS: ceFAZolin 2 GM/D5W 50 ML 2 GM/50 ML BAG IVPB ×3 (05:18→20:43)
[2024-08-29] MEDS: CENTRAL LINE FLUSH 10 ML IV PUSH ×3 (05:18→20:48)
[2024-08-29 05:46] LABS: Basophils Percent Auto 0.5 % (0.2-1.2); Eosinophils Absolute Auto 0.3 K/mm3 (0-0.3); Eosinophils Percent Auto 4.8 % (0-4.4); Hematocrit 30.1 % (42.0-52.0); Hemoglobin 9.4 g/dL (14.0-18.0); Immature Granulocyte Absolute 0.03 K/mm3 (0.00-0.031); Immature Granulocyte Percent A 0.5 % (0-0.5); Lymphocytes Percent Auto 33.3 % (18.3-44.2); Mean Corpuscular HGB Conc 31.2 g/dl (32-36); Mean Corpuscular Hemoglobin 25.9 pg (26-34); Mean Corpuscular Volume 82.9 fl (80-100); Mean Platelet Volume 8.9 fl (7.4-10.4); Monocytes Absolute Auto 0.7 K/mm3 (0.1-0.6); Monocytes Percent Auto 10.6 % (2.6-8.5); Neutrophils Absolute Auto 3.3 K/mm3 (1.3-6.7); Neutrophils Percent Auto 50.3 % (45.5-73.1); Platelet Count Result 425 k/mm3 (150-375); Red Blood Count 3.63 M/mm3 (4.6-6.20); Red Cell Distribution Width 14.1 % (11.5-14.5); White Blood Count 6.6 K/mm3 (4.5-10.0)
[2024-08-29 05:49] VITALS: BP 127/70; PULSE 104; RESP 18; TEMP 36.6; O2SAT 100
[2024-08-29 06:04] LABS: Alanine Aminotransferase 11 U/L (6-50); Albumin Level 3.4 g/dL (3.5-5.1); Alkaline Phosphatase 95 U/L (38-126); Anion Gap 9 mmol/L (4-12); Aspartate Amino Transferase 32 U/L (17-59); Bilirubin,Total 0.5 mg/dL (0.2-1.3); Blood Urea Nitrogen 15 mg/dL (9-20); Calcium 8.4 mg/dL (8.4-10.2); Carbon Dioxide 29 mmol/L (22-30); Chloride 103 mmol/L (98-107); Estimated CRCL calculation 83 ml/min; Estimated Glomerular Filt Rate > 60; Glucose 109 mg/dL (65-110); Potassium 3.6 mmol/L (3.4-5.0); Sodium 141 mmol/L (137-145)
[2024-08-29 08:13] LABS: Glucose Point of Care 108 mg/dl (65-105)
[2024-08-29] MEDS: hydroCHLOROthiazide 12.5 MG CAPSULE PO (08:24)
[2024-08-29] MEDS: INSULIN HUMAN ISOPHAN/REGULAR 70/30 (*BKC) 100 UNITS/ML 15 UNITS SUB-Q ×2 (08:24→17:15)
[2024-08-29] MEDS: metFORMIN HCL XR 500 MG TAB.SR.24H PO ×2 (08:24→17:15)
[2024-08-29] MEDS: LOSARTAN POTASSIUM 50 MG TABLET PO (08:24)
--- NOTE | 2024-08-29 08:52 | PM.IMPN ---
Progress Note: A&P Assessment and Plan (1) Osteomyelitis of right foot: Qualifiers: Osteomyelitis type: other acute Qualified Code(s): M86.171 - Other acute osteomyelitis, right ankle and foot Code(s): M86.9 - Osteomyelitis, unspecified Status: Acute Assessment and Plan: S/p left 5th ray amputation in 2020, recently admitted for right foot infection underwent right TMA of 2nd toe in June 08, 2024. He has been followed up by Wound Care since discharge. Returned to ER on August 08 with right ankle pain. CT of the foot at that time showed soft tissue edema without her remain hand Del Angel fluid collection or gas within the soft tissues blood culture and wound culture were obtained which came back positive for MSSA. He has not followed up since the positive blood culture and had not been on antibiotics. [facility] where he presented for his routine wound care. Orthopedics evaluated the patient and noted wound getting worse as well as findings of positive blood culture recently which was not treated. - Antibiotics: started on cefepime 2 gm IVPB q 8, Vancomycin 1,500 mg IVPB q 12, and Metronidiazole 500 mg PO q 8. Patient blood culture grew MSSA., switched to Ancef 2 gm ivpb q 8 on 08/24/24. - Blood cultures 08/23: staph aureus - Repeat blood cultures 08/26: NGTD - MR right ankle and MR right foot 08/21 showed: 1. Likely septic arthritis at the ankle and subtalar joints with draining sinus tract draining from the anterior subtalar joint/sinus Tarsi to the dorsolateral hindfoot. 2. Associated osteomyelitis most prominent at the anterior process of the calcaneus also involving portions of the talus as detailed above. 3. Overlying myositis involving the intrinsic musculature at the dorsal midfoot with suggestion of tendinopathy and likely at least partial tears of the more superficial extensor digitorum longus tendons to the fifth and possibly fourth toes. 4. Complete tear and proximal retraction of the extensor hallucis longus and anterior tibial tendons, the former with likely associated septic tenosynovitis. 5. Chronic amputation of the second toe with suspicion for osteomyelitis at the distal diaphysis of the second metatarsal. 6.. 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 7. Old healed fractures at the necks of the third and fourth metatarsals. - Echo: ejection fraction about 60%. Grade 1 diastolic dysfunction. - Monitor vital signs, I&Os, neuro status and patient is a fall risk - Monitor serum electrolytes, CBC, cultures, WBC and temp curve - PICC line placed will require penitentiary antibiotics, per ID pharm patient will be discharged on Oxacillin 12 g q 24h (over 24h) or Nafcillin 12g q24h (over 24h) for 6 weeks to complete the course. Care coordination working on setting up home health. - Orthopedic consulted s/p I&D of the right foot/ankle with wound vac placement on 08/[address] Kemar Sunshine for discharge home from orthopedic standpoint when PICC line and wound VAC have been approved. (2) Bacteremia: Code(s): R78.81 - Bacteremia Status: Acute Assessment and Plan: - Blood cultures 08/23: staph aureus - Repeat blood cultures 08/26: NGTD - Antibiotics: started on cefepime 2 gm IVPB q 8, Vancomycin 1,500 mg IVPB q 12, and Metronidiazole 500 mg PO q 8. Patient blood culture grew MSSA., switched to Ancef 2 gm ivpb q 8 on 08/24/24. 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 Glargine 21 units subq at bedtime 70/30 insulin 15 units subq BID (4) HTN (hypertension): Code(s): I10 - Essential (primary) hypertension Status: Acute Assessment and Plan: Chronic, continue home medications - losartan-HCTZ 50-12.5 mg PO daily - monitor (5) GERD (gastroesophageal reflux disease): Qualifiers: Esophagitis presence: esophagitis presence not specified Qualified Code(s): K21.9 - Gastro-esophageal reflux disease without esophagitis Code(s): K21.9 - Gastro-esophageal reflux disease without esophagitis Status: Acute Assessment and Plan: Continue Famotidine 20 mg PO daily. Time Spent With Patient Time with patient: 25 - 35 minutes Subjective Date/time seen: 08/29/24 08:52 Interval history: Patient is pleasant lying comfortably in bed. He has no complaints denying chest pain, shortness of breath, palpitations, nausea/vomiting and abdominal pain. He remains in patient waiting for home health to be set up. Review of Systems Review of Systems: All systems reviewed & are unremarkable except as noted in HPI and below Exam Narrative: AF HR 100 RR 14 SpO2 99 BP 133/83 General: male in no acute respiratory distress who is nontoxic appearing, lying semi recumbent in bed. HEENT: Normocephalic. Atraumatic. Extraocular movement intact. Sclera clear and anicteric. No facial asymmetry. Chest: Lungs are clear to auscultation bilaterally. No wheezes or crackles. CV: Heart was regular rate and rhythm. S1/S2. No murmurs, gallops, or rubs. Abd: Abdomen was soft. Nontender. Nondistended. Positive bowel sounds. No organomegaly or masses. Ext: No clubbing, cyanosis, or edema. Wound dressing to the right foot with wound vac in place. Neuro: Speech is clear. Objective Data Vital Signs Vital Signs: Vital Signs - 24 hr 08/28/24 14:00 08/28/24 15:00 08/28/24 20:00 Temperature 96.9 F L Pulse Rate 97 Respiratory Rate 16 Blood Pressure 124/85 Pulse Oximetry 99 Oxygen Delivery Room Air Room Air 08/28/24 21:38 08/29/24 05:49 Temperature 96.9 F L 97.8 F Pulse Rate 84 104 H Respiratory Rate 18 18 Blood Pressure 138/91 H 127/70 Pulse Oximetry 99 100 Oxygen Delivery Intake/Output Intake/Output: Intake & Output 08/26/24 08/27/24 08/28/24 08/29/24 23:59 23:59 23:59 23:59 Intake Total 2587 2200 1420 400 Output Total 400 Balance 2587 2200 1020 400 Meds/Results Medications: Active Medications Generic Name Dose Route Start Last Admin Trade Name Freq PRN Reason Stop Dose Admin Acetaminophen 650 mg 08/20/24 12:16 08/23/24 15:50 Acetaminophen 325 Mg Tablet PO 650 mg Q4H PRN Administration Mild Pain (1-3) or Fever Calcium Carbonate 200 mg 08/25/24 06:17 Calcium Carbonate (Tums) 500 Mg (200 Mg Elemental) PO Q6H PRN Indigestion Dextrose 12.5 gm 08/25/24 12:46 Dextrose 50% 25 Gm/50 Ml Syringe IV PUSH PRN PRN Hypoglycemia Protocol Glucagon 1 mg 08/25/24 12:46 Glucagon For Inj 1 Mg Vial IM PRN PRN Hypoglycemia Protocol Glucose 15 gm 08/25/24 12:46 Glucose Oral Gel 15 Gm Of Glucse In 37.5 Gm Tube PO PRN PRN Hypoglycemia Protocol Hydrochlorothiazide 12.5 mg 08/22/24 09:00 08/29/24 08:24 Hydrochlorothiazide 12.5 Mg Capsule PO 12.5 mg DAILY ARLEEN Administration Cefazolin Sodium 2 gm in 50 mls @ 100 mls/hr 08/24/24 08:00 08/29/24 05:48 Ancef 2 Gm/D5w 50 Ml IVPB Infused Q8HR ARLEEN Infusion Dextrose 1,000 mls @ 100 mls/hr 08/25/24 12:46 Dextrose 5% 1,000 Ml IVPB PRN PRN Hypoglycemia Protocol Insulin Aspart 4 - 8 units 08/25/24 17:00 08/29/24 08:23 Insulin Aspart (*Bkc) 100 Units/Ml SUB-Q Not Given TIDWM [facility] Protocol Insulin Glargine 21 units 08/20/24 21:00 08/28/24 21:12 Insulin Glargine (*Bkc) 100 Units/Ml 0.2 units/kg (21 units) 21 units SUB-Q Administration HS [facility] Insulin Human Isoph/Insulin Regular 15 units 08/23/24 17:00 08/29/24 08:24 Insulin Human Isophan/Regular 70/30 (*Bkc) 100 Units/Ml SUB-Q 15 units BIDWM ARLEEN Administration Losartan Potassium 50 mg 08/22/24 09:00 08/29/24 08:24 Losartan Potassium 50 Mg Tablet PO 50 mg DAILY ARLEEN Administration Metformin HCl 500 mg 08/23/24 17:00 08/29/24 08:24 Metformin Hcl Xr 500 Mg Tab.Sr.24h PO 500 mg BID ARLEEN Administration Miscellaneous Information 0 each 08/23/24 00:01 08/28/24 10:16 Semaglutide (Ozempic) Is Nonformulary - Can Patient Use From Home? XX 09/22/24 00:00 Not Given CLARIFY ARLEEN Non-Formulary Medication 0.25 mg 08/30/24 09:00 Semaglutide [Ozempic] SUB-Q 09/29/24 08:59 WEEKLY ARLEEN Ondansetron HCl 4 mg 08/20/24 17:21 08/23/24 12:29 Ondansetron Inj 4 Mg/2 Ml Vial IV PUSH 4 mg Q6H PRN Administration Nausea And Vomiting Ondansetron HCl 4 mg 08/23/24 11:50 Ondansetron Inj 4 Mg/2 Ml Vial IV PUSH ONCE PRN Nausea Sodium Chloride 10 ml 08/28/24 14:00 08/29/24 05:18 Central Line Flush IV PUSH 10 ml Q8HR ARLEEN Administration Sodium Chloride 10 ml 08/28/24 10:38 Central Line Flush IV PUSH PRN PRN with TPN bag changes Sodium Chloride 20 ml 08/28/24 10:38 08/29/24 05:17 Central Line Flush IV PUSH 20 ml PRN PRN Administration after blood draws Radiology Results: ITS Impressions Ankle MRI 08/21/24 08:41 IMPRESSION: 1. Likely septic arthritis at the ankle and subtalar joints with draining sinus tract draining from the anterior subtalar joint/sinus Tarsi to the dorsolateral hindfoot. 2. Associated osteomyelitis most prominent at the anterior process of the calcaneus also involving portions of the talus as detailed above. 3. Overlying myositis involving the intrinsic musculature at the dorsal midfoot with suggestion of tendinopathy and likely at least partial tears of the more superficial extensor digitorum longus tendons to the fifth and possibly fourth toes. 4. Complete tear and proximal retraction of the extensor hallucis longus and anterior tibial tendons, the former with likely associated septic tenosynovitis. 5. Chronic amputation of the second toe with suspicion for osteomyelitis at the distal diaphysis of the second metatarsal. 6. 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 7. Old healed fractures at the necks of the third and fourth metatarsals. Foot MRI 08/21/24 08:41 IMPRESSION: 1. Likely septic arthritis at the ankle and subtalar joints with draining sinus tract draining from the anterior subtalar joint/sinus Tarsi to the dorsolateral hindfoot. 2. Associated osteomyelitis most prominent at the anterior process of the calcaneus also involving portions of the talus as detailed above. 3. Overlying myositis involving the intrinsic musculature at the dorsal midfoot with suggestion of tendinopathy and likely at least partial tears of the more superficial extensor digitorum longus tendons to the fifth and possibly fourth toes. 4. Complete tear and proximal retraction of the extensor hallucis longus and anterior tibial tendons, the former with likely associated septic tenosynovitis. 5. Chronic amputation of the second toe with suspicion for osteomyelitis at the distal diaphysis of the second metatarsal. 6. 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 7. Old healed fractures at the necks of the third and fourth metatarsals. Chest X-Ray 08/28/24 09:58 IMPRESSION: No acute cardiopulmonary pathology. Labs Labs: Laboratory Results - last 24 hr 08/28/24 08/28/24 08/28/24 11:26 16:35 21:05 WBC RBC Hgb Hct MCV MCH MCHC RDW Plt Count MPV Immature Gran % (Auto) Neut % (Auto) Lymph % (Auto) [place] % (Auto) Eos % (Auto) Baso % (Auto) Lymph # (Auto) [place] # (Auto) Eos # (Auto) Baso # (Auto) Abs Immat Gran (auto) Absolute Neuts (auto) Absolute Nucleated RBC Nucleated RBC % Sodium Potassium Chloride Carbon Dioxide Anion Gap BUN Creatinine Estim Creat Clear Calc Estimated GFR Glucose POC Capillary Glucose 138 H 151 H 148 H Calcium Total Bilirubin AST ALT Alkaline Phosphatase Total Protein Albumin 08/29/24 08/29/24 05:24 07:53 WBC 6.6 RBC 3.63 L Hgb 9.4 L Hct 30.1 L MCV 82.9 MCH 25.9 L MCHC 31.2 L RDW 14.1 Plt Count 425 H MPV 8.9 Immature Gran % (Auto) 0.5 Neut % (Auto) 50.3 Lymph % (Auto) 33.3 [place] % (Auto) 10.6 H Eos % (Auto) 4.8 H Baso % (Auto) 0.5 Lymph # (Auto) 2.20 [place] # (Auto) 0.7 H Eos # (Auto) 0.3 Baso # (Auto) 0.0 Abs Immat Gran (auto) 0.03 Absolute Neuts (auto) 3.3 Absolute Nucleated RBC 0.000 Nucleated RBC % 0.0 Sodium 141 Potassium 3.6 Chloride 103 Carbon Dioxide 29 Anion Gap 9 BUN 15 Creatinine 1.20 Estim Creat Clear Calc 83 Estimated GFR > 60 Glucose 109 POC Capillary Glucose 108 H Calcium 8.4 Total Bilirubin 0.5 AST 32 ALT 11 Alkaline Phosphatase 95 Total Protein 8.0 Albumin 3.4 L Quality VTE Prophylaxis VTE prophylaxis: mechanical ordered
[2024-08-29 12:00] LABS: Glucose Point of Care 99 mg/dl (65-105)
[2024-08-29 14:00] VITALS: BP 133/83; PULSE 100; RESP 14; TEMP 36.3; O2SAT 100
[2024-08-29 17:01] LABS: Glucose Point of Care 115 mg/dl (65-105)
[2024-08-29 19:53] VITALS: BP 137/85; PULSE 99; RESP 18; TEMP 36.7; O2SAT 98
[2024-08-29] MEDS: INSULIN GLARGINE (*BKC) 100 UNITS/ML 21 UNITS SUB-Q (20:40)
[2024-08-29 20:58] LABS: Glucose Point of Care 139 mg/dl (65-105)
[2024-08-29 22:36] VITALS: BP 135/82; PULSE 100; RESP 16; TEMP 36.8; O2SAT 98
[2024-08-30] MEDS: ceFAZolin 2 GM/D5W 50 ML 2 GM/50 ML BAG IVPB ×3 (05:24→21:39)
[2024-08-30] MEDS: CENTRAL LINE FLUSH 20 ML IV PUSH ×2 (05:27→08:06)
[2024-08-30] MEDS: CENTRAL LINE FLUSH 10 ML IV PUSH ×3 (05:27→21:39)
[2024-08-30 05:54] LABS: Estimated CRCL calculation 83 ml/min; Estimated Glomerular Filt Rate > 60
[2024-08-30 06:47] VITALS: BP 139/84; PULSE 100; RESP 18; TEMP 36.7; O2SAT 100
[2024-08-30 08:04] LABS: Glucose Point of Care 87 mg/dl (65-105)
[2024-08-30] MEDS: hydroCHLOROthiazide 12.5 MG CAPSULE PO (08:05)
[2024-08-30] MEDS: metFORMIN HCL XR 500 MG TAB.SR.24H PO ×2 (08:06→17:06)
[2024-08-30] MEDS: LOSARTAN POTASSIUM 50 MG TABLET PO (08:06)
[2024-08-30 08:23] LABS: Basophils Percent Auto 0.5 % (0.2-1.2); Eosinophils Absolute Auto 0.2 K/mm3 (0-0.3); Eosinophils Percent Auto 3.7 % (0-4.4); Hematocrit 29.7 % (42.0-52.0); Hemoglobin 9.5 g/dL (14.0-18.0); Immature Granulocyte Absolute 0.01 K/mm3 (0.00-0.031); Immature Granulocyte Percent A 0.2 % (0-0.5); Lymphocytes Absolute Auto 1.79 K/mm3 (0.9-3.2); Lymphocytes Percent Auto 29.9 % (18.3-44.2); Mean Corpuscular Hemoglobin 26.2 pg (26-34); Mean Corpuscular Volume 81.8 fl (80-100); Mean Platelet Volume 8.4 fl (7.4-10.4); Monocytes Absolute Auto 0.5 K/mm3 (0.1-0.6); Neutrophils Absolute Auto 3.4 K/mm3 (1.3-6.7); Neutrophils Percent Auto 56.7 % (45.5-73.1); Platelet Count Result 387 k/mm3 (150-375); Red Blood Count 3.63 M/mm3 (4.6-6.20); Red Cell Distribution Width 14.1 % (11.5-14.5)
[2024-08-30 08:55] LABS: Alanine Aminotransferase 14 U/L (6-50); Albumin Level 3.3 g/dL (3.5-5.1); Alkaline Phosphatase 100 U/L (38-126); Anion Gap 9 mmol/L (4-12); Aspartate Amino Transferase 32 U/L (17-59); Bilirubin,Total 0.5 mg/dL (0.2-1.3); Blood Urea Nitrogen 13 mg/dL (9-20); Calcium 8.4 mg/dL (8.4-10.2); Carbon Dioxide 28 mmol/L (22-30); Chloride 103 mmol/L (98-107); Estimated CRCL calculation 77 ml/min; Estimated Glomerular Filt Rate 58; Glucose 89 mg/dL (65-110); Potassium 3.4 mmol/L (3.4-5.0); Sodium 140 mmol/L (137-145)
[2024-08-30 11:49] LABS: Glucose Point of Care 139 mg/dl (65-105)
--- NOTE | 2024-08-30 13:19 | P.PNIM_ITS ---
Progress Note: A&P Assessment and Plan (1) Osteomyelitis of right foot: Qualifiers: Osteomyelitis type: other acute Qualified Code(s): M86.171 - Other acute osteomyelitis, right ankle and foot Code(s): M86.9 - Osteomyelitis, unspecified Status: Acute Assessment and Plan: S/p left 5th ray amputation in 2020, recently admitted for right foot infection underwent right TMA of 2nd toe in June 08, 2024. He has been followed up by Wound Care since discharge. Returned to ER on August 08 with right ankle pain. CT of the foot at that time showed soft tissue edema without her remain hand [place] Angel fluid collection or gas within the soft tissues blood culture and wound culture were obtained which came back positive for MSSA. He has not followed up since the positive blood culture and had not been on antibiotics. [facility] where he presented for his routine wound care. Orthopedics evaluated the patient and noted wound getting worse as well as findings of positive blood culture recently which was not treated. - Antibiotics: started on cefepime 2 gm IVPB q 8, Vancomycin 1,500 mg IVPB q 12, and Metronidiazole 500 mg PO q 8. Patient blood culture grew MSSA., switched to Ancef 2 gm ivpb q 8 on 08/24/24. - Blood cultures 08/23: staph aureus - Repeat blood cultures 08/26: NGTD - MR right ankle and MR right foot 08/21 showed: 1. Likely septic arthritis at the ankle and subtalar joints with draining sinus tract draining from the anterior subtalar joint/sinus Tarsi to the dorsolateral hindfoot. 2. Associated osteomyelitis most prominent at the anterior process of the calcaneus also involving portions of the talus as detailed above. 3. Overlying myositis involving the intrinsic musculature at the dorsal midfoot with suggestion of tendinopathy and likely at least partial tears of the more superficial extensor digitorum longus tendons to the fifth and possibly fourth toes. 4. Complete tear and proximal retraction of the extensor hallucis longus and anterior tibial tendons, the former with likely associated septic tenosynovitis. 5. Chronic amputation of the second toe with suspicion for osteomyelitis at the distal diaphysis of the second metatarsal. 6.. 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 7. Old healed fractures at the necks of the third and fourth metatarsals. - Echo: ejection fraction about 60%. Grade 1 diastolic dysfunction. - Monitor vital signs, I&Os, neuro status and patient is a fall risk - Monitor serum electrolytes, CBC, cultures, WBC and temp curve - PICC line placed will require alf antibiotics, per ID pharm patient will be discharged on Oxacillin 12 g q 24h (over 24h) or Nafcillin 12g q24h (over 24h) for 6 weeks to complete the course. - Per Care coordination, home health has been set up and antibiotics have been approved. He remains inpatient waiting on wound vac approval by insurance. - Orthopedic consulted s/p I&D of the right foot/ankle with wound vac placement on 08/[address] Kemar Sunshine for discharge home from orthopedic standpoint when PICC line and wound VAC have been approved. (2) Bacteremia: Code(s): R78.81 - Bacteremia Status: Acute Assessment and Plan: - Blood cultures 08/23: staph aureus - Repeat blood cultures 08/26: NGTD - Antibiotics: started on cefepime 2 gm IVPB q 8, Vancomycin 1,500 mg IVPB q 12, and Metronidiazole 500 mg PO q 8. Patient blood culture grew MSSA., switched to Ancef 2 gm ivpb q 8 on 08/24/24. 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 * Glargine 21 units subq at bedtime * 70/30 insulin 15 units subq BID (4) HTN (hypertension): Code(s): I10 - Essential (primary) hypertension Status: Acute Assessment and Plan: Chronic, continue home medications - losartan-HCTZ 50-12.5 mg PO daily - monitor (5) GERD (gastroesophageal reflux disease): Qualifiers: Esophagitis presence: esophagitis presence not specified Qualified Code(s): K21.9 - Gastro-esophageal reflux disease without esophagitis Code(s): K21.9 - Gastro-esophageal reflux disease without esophagitis Status: Acute Assessment and Plan: Continue Famotidine 20 mg PO daily. Time Spent With Patient Time with patient: 25 - 35 minutes Subjective Date/time seen: 08/30/24 13:19 Interval history: Patient is lying comfortably in bed. He has no complaints denying chest pain, shortness of breath, nausea/vomiting, abdominal pain, and any lower extremity pain. Discussed patient with care coordination and he has yet to be approved for the wound vac by his insurance. He remains inpatient at this time awaiting approval. Review of Systems Review of Systems: All systems reviewed & are unremarkable except as noted in HPI and below Exam Narrative: AF HR 100 RR 18 SpO2 100 BP 139/84 General: male in no acute respiratory distress who is nontoxic appearing, lying semi recumbent in bed. HEENT: Normocephalic. Atraumatic. Extraocular movement intact. Sclera clear and anicteric. No facial asymmetry. Chest: Lungs are clear to auscultation bilaterally. No wheezes or crackles. CV: Heart was regular rate and rhythm. S1/S2. No murmurs, gallops, or rubs. Abd: Abdomen was soft. Nontender. Nondistended. Positive bowel sounds. No organomegaly or masses. Ext: No clubbing, cyanosis, or edema. Wound dressing to the right foot with wound vac in place. Neuro: Speech is clear. Objective Data Vital Signs Vital Signs: Vital Signs - 24 hr 08/29/24 14:00 08/29/24 19:53 08/29/24 20:00 Temperature 97.3 F L 98.0 F Pulse Rate 100 99 Respiratory Rate 14 18 Blood Pressure 133/83 137/85 Pulse Oximetry 100 98 Oxygen Delivery Room Air 08/29/24 22:36 08/30/24 06:47 Temperature 98.3 F 98.0 F Pulse Rate 100 100 Respiratory Rate 16 18 Blood Pressure 135/82 139/84 Pulse Oximetry 98 100 Oxygen Delivery Intake/Output Intake/Output: Intake & Output 08/27/24 08/28/24 08/29/24 08/30/24 23:59 23:59 23:59 23:59 Intake Total 2200 1420 1460 170 Output Total 400 550 Balance 2200 1020 910 170 Meds/Results Medications: Active Medications Generic Name Dose Route Start Last Admin Trade Name Freq PRN Reason Stop Dose Admin Acetaminophen 650 mg 08/20/24 12:16 08/23/24 15:50 Acetaminophen 325 Mg Tablet PO 650 mg Q4H PRN Administration Mild Pain (1-3) or Fever Calcium Carbonate 200 mg 08/25/24 06:17 Calcium Carbonate (Tums) 500 Mg (200 Mg Elemental) PO Q6H PRN Indigestion Dextrose 12.5 gm 08/25/24 12:46 Dextrose 50% 25 Gm/50 Ml Syringe IV PUSH PRN PRN Hypoglycemia Protocol Glucagon 1 mg 08/25/24 12:46 Glucagon For Inj 1 Mg Vial IM PRN PRN Hypoglycemia Protocol Glucose 15 gm 08/25/24 12:46 Glucose Oral Gel 15 Gm Of Glucse In 37.5 Gm Tube PO PRN PRN Hypoglycemia Protocol Hydrochlorothiazide 12.5 mg 08/22/24 09:00 08/30/24 08:05 Hydrochlorothiazide 12.5 Mg Capsule PO 12.5 mg DAILY ARLEEN Administration Cefazolin Sodium 2 gm in 50 mls @ 100 mls/hr 08/24/24 08:00 08/30/24 13:06 Ancef 2 Gm/D5w 50 Ml IVPB 100 mls/hr Q8HR ARLEEN Administration Dextrose 1,000 mls @ 100 mls/hr 08/25/24 12:46 Dextrose 5% 1,000 Ml IVPB PRN PRN Hypoglycemia Protocol Insulin Aspart 4 - 8 units 08/25/24 17:00 08/30/24 12:01 Insulin Aspart (*Bkc) 100 Units/Ml SUB-Q Not Given TIDWM [facility] Protocol Insulin Glargine 21 units 08/20/24 21:00 08/29/24 20:40 Insulin Glargine (*Bkc) 100 Units/Ml 0.2 units/kg (21 units) 21 units SUB-Q Administration HS [facility] Insulin Human Isoph/Insulin Regular 15 units 08/23/24 17:00 08/30/24 08:05 Insulin Human Isophan/Regular 70/30 (*Bkc) 100 Units/Ml SUB-Q Not Given BIDWM [facility] Losartan Potassium 50 mg 08/22/24 09:00 08/30/24 08:06 Losartan Potassium 50 Mg Tablet PO 50 mg DAILY ARLEEN Administration Metformin HCl 500 mg 08/23/24 17:00 08/30/24 08:06 Metformin Hcl Xr 500 Mg Tab.Sr.24h PO 500 mg BID ARLEEN Administration Ondansetron HCl 4 mg 08/20/24 17:21 08/23/24 12:29 Ondansetron Inj 4 Mg/2 Ml Vial IV PUSH 4 mg Q6H PRN Administration Nausea And Vomiting Ondansetron HCl 4 mg 08/23/24 11:50 Ondansetron Inj 4 Mg/2 Ml Vial IV PUSH ONCE PRN Nausea Sodium Chloride 10 ml 08/28/24 14:00 08/30/24 13:06 Central Line Flush IV PUSH 10 ml Q8HR ARLEEN Administration Sodium Chloride 10 ml 08/28/24 10:38 Central Line Flush IV PUSH PRN PRN with TPN bag changes Sodium Chloride 20 ml 08/28/24 10:38 08/30/24 08:06 Central Line Flush IV PUSH 20 ml PRN PRN Administration after blood draws Radiology Results: ITS Impressions Ankle MRI 08/21/24 08:41 IMPRESSION: 1. Likely septic arthritis at the ankle and subtalar joints with draining sinus tract draining from the anterior subtalar joint/sinus Tarsi to the dorsolateral hindfoot. 2. Associated osteomyelitis most prominent at the anterior process of the calcaneus also involving portions of the talus as detailed above. 3. Overlying myositis involving the intrinsic musculature at the dorsal midfoot with suggestion of tendinopathy and likely at least partial tears of the more superficial extensor digitorum longus tendons to the fifth and possibly fourth toes. 4. Complete tear and proximal retraction of the extensor hallucis longus and anterior tibial tendons, the former with likely associated septic tenosynovitis. 5. Chronic amputation of the second toe with suspicion for osteomyelitis at the distal diaphysis of the second metatarsal. 6. 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 7. Old healed fractures at the necks of the third and fourth metatarsals. Foot MRI 08/21/24 08:41 IMPRESSION: 1. Likely septic arthritis at the ankle and subtalar joints with draining sinus tract draining from the anterior subtalar joint/sinus Tarsi to the dorsolateral hindfoot. 2. Associated osteomyelitis most prominent at the anterior process of the calcaneus also involving portions of the talus as detailed above. 3. Overlying myositis involving the intrinsic musculature at the dorsal midfoot with suggestion of tendinopathy and likely at least partial tears of the more superficial extensor digitorum longus tendons to the fifth and possibly fourth toes. 4. Complete tear and proximal retraction of the extensor hallucis longus and anterior tibial tendons, the former with likely associated septic tenosynovitis. 5. Chronic amputation of the second toe with suspicion for osteomyelitis at the distal diaphysis of the second metatarsal. 6. 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 7. Old healed fractures at the necks of the third and fourth metatarsals. Chest X-Ray 08/28/24 09:58 IMPRESSION: No acute cardiopulmonary pathology. Labs Labs: Laboratory Results - last 24 hr 08/29/24 08/29/24 08/30/24 16:54 19:50 05:23 WBC RBC Hgb Hct MCV MCH MCHC RDW Plt Count MPV Immature Gran % (Auto) Neut % (Auto) Lymph % (Auto) [place] % (Auto) Eos % (Auto) Baso % (Auto) Lymph # (Auto) [place] # (Auto) Eos # (Auto) Baso # (Auto) Abs Immat Gran (auto) Absolute Neuts (auto) Absolute Nucleated RBC Nucleated RBC % Sodium Potassium Chloride Carbon Dioxide Anion Gap BUN Creatinine 1.20 Estim Creat Clear Calc 83 Estimated GFR > 60 Glucose POC Capillary Glucose 115 H 139 H Calcium Total Bilirubin AST ALT Alkaline Phosphatase Total Protein Albumin 08/30/24 08/30/24 08/30/24 07:58 08:16 11:46 WBC 6.0 RBC 3.63 L Hgb 9.5 L Hct 29.7 L MCV 81.8 MCH 26.2 MCHC 32.0 RDW 14.1 Plt Count 387 H MPV 8.4 Immature Gran % (Auto) 0.2 Neut % (Auto) 56.7 Lymph % (Auto) 29.9 [place] % (Auto) 9.0 H Eos % (Auto) 3.7 Baso % (Auto) 0.5 Lymph # (Auto) 1.79 [place] # (Auto) 0.5 Eos # (Auto) 0.2 Baso # (Auto) 0.0 Abs Immat Gran (auto) 0.01 Absolute Neuts (auto) 3.4 Absolute Nucleated RBC 0.000 Nucleated RBC % 0.0 Sodium 140 Potassium 3.4 Chloride 103 Carbon Dioxide 28 Anion Gap 9 BUN 13 Creatinine 1.30 Estim Creat Clear Calc 77 Estimated GFR 58 L Glucose 89 POC Capillary Glucose 87 139 H Calcium 8.4 Total Bilirubin 0.5 AST 32 ALT 14 Alkaline Phosphatase 100 Total Protein 8.0 Albumin 3.3 L Quality VTE Prophylaxis VTE prophylaxis: mechanical ordered
[2024-08-30 13:38] VITALS: BP 123/82; PULSE 102; RESP 16; TEMP 36.3; O2SAT 99
[2024-08-30 17:02] LABS: Glucose Point of Care 140 mg/dl (65-105)
[2024-08-30] MEDS: INSULIN HUMAN ISOPHAN/REGULAR 70/30 (*BKC) 100 UNITS/ML 15 UNITS SUB-Q (17:06)
[2024-08-30 20:37] LABS: Glucose Point of Care 137 mg/dl (65-105)
[2024-08-30] MEDS: INSULIN GLARGINE (*BKC) 100 UNITS/ML 21 UNITS SUB-Q (21:39)
[2024-08-30 22:00] VITALS: PULSE 100; RESP 18; TEMP 36.7; O2SAT 98
[2024-08-31 04:36] VITALS: RESP 18
[2024-08-31] MEDS: ceFAZolin 2 GM/D5W 50 ML 2 GM/50 ML BAG IVPB ×3 (05:51→22:04)
[2024-08-31] MEDS: CENTRAL LINE FLUSH 10 ML IV PUSH ×3 (05:52→22:04)
[2024-08-31] MEDS: hydroCHLOROthiazide 12.5 MG CAPSULE PO (08:16)
[2024-08-31] MEDS: LOSARTAN POTASSIUM 50 MG TABLET PO (08:16)
[2024-08-31] MEDS: metFORMIN HCL XR 500 MG TAB.SR.24H PO ×2 (08:16→16:59)
[2024-08-31 08:18] LABS: Glucose Point of Care 86 mg/dl (65-105)
--- NOTE | 2024-08-31 08:38 | P.PNIM_ITS ---
Progress Note: A&P Assessment and Plan (1) Osteomyelitis of right foot: Qualifiers: Osteomyelitis type: other acute Qualified Code(s): M86.171 - Other acute osteomyelitis, right ankle and foot Code(s): M86.9 - Osteomyelitis, unspecified Status: Acute Assessment and Plan: S/p left 5th ray amputation in 2020, recently admitted for right foot infection underwent right TMA of 2nd toe in June 08, 2024. He has been followed up by Wound Care since discharge. Returned to ER on August 08 with right ankle pain. CT of the foot at that time showed erosions of the lateral aspect of the anterior calcaneus with adjacent ill-defined incomplete rim of enhancing soft tissue measuring 14 mm, consistent with osteomyelitis and adjacent phlegmon versus early abscess.Blood culture and wound culture were obtained which came back positive for MSSA. He has not followed up since the positive blood culture and had not been on antibiotics. In [facility] on 08[facility]24 where he presented for his routine wound care. Orthopedics evaluated the patient and noted wound getting worse as well as findings of positive blood culture recently which was not treated. - Antibiotics: started on cefepime 2 gm IVPB q 8, Vancomycin 1,500 mg IVPB q 12, and Metronidiazole 500 mg PO q 8. Patient blood culture grew MSSA., switched to Ancef 2 gm ivpb q 8 on 08/24/24. - Blood cultures 08/23: staph aureus - Repeat blood cultures 08/26: NGTD - MR right ankle and MR right foot 08/21 showed: 1. Likely septic arthritis at the ankle and subtalar joints with draining sinus tract draining from the anterior subtalar joint/sinus Tarsi to the dorsolateral hindfoot. 2. Associated osteomyelitis most prominent at the anterior process of the calcaneus also involving portions of the talus as detailed above. 3. Overlying myositis involving the intrinsic musculature at the dorsal midfoot with suggestion of tendinopathy and likely at least partial tears of the more superficial extensor digitorum longus tendons to the fifth and possibly fourth toes. 4. Complete tear and proximal retraction of the extensor hallucis longus and anterior tibial tendons, the former with likely associated septic tenosynovitis. 5. Chronic amputation of the second toe with suspicion for osteomyelitis at t he distal diaphysis of the second metatarsal. 6.. 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 7. Old healed fractures at the necks of the third and fourth metatarsals. - Echo: ejection fraction about 60%. Grade 1 diastolic dysfunction. - Monitor vital signs, I&Os, neuro status and patient is a fall risk - Monitor serum electrolytes, CBC, cultures, WBC and temp curve - PICC line placed will require continuous churn buttermaker antibiotics, per ID pharm patient will be discharged on Oxacillin 12 g q 24h (over 24h) or Nafcillin 12g q24h (over 24h) for 6 weeks (from time of cleared blood culture) to complete the course. - Per Care coordination, home health has been set up and antibiotics have been approved. He remains inpatient waiting on wound vac approval by insurance. Patient will likely remain inpatient until 09/04 as his insurance is about to change on 09/01 and authorization process will have to be restarted. - Orthopedic consulted s/p I&D of the right foot/ankle with wound vac placement on 08/[address] Kemar Sunshine for discharge home from orthopedic standpoint when PICC line and wound VAC have been approved. (2) Bacteremia: Code(s): R78.81 - Bacteremia Status: Acute Assessment and Plan: - Blood cultures 08/23: staph aureus - Repeat blood cultures 08/26: NGTD - Antibiotics: started on cefepime 2 gm IVPB q 8, Vancomycin 1,500 mg IVPB q 12, and Metronidiazole 500 mg PO q 8. Patient blood culture grew MSSA., switched to Ancef 2 gm ivpb q 8 on 08/24/24. (3) Type 2 diabetes mellitus, with long-term current use of insulin: Qualifiers: Diabetes mellitus complication detail: with polyneuropathy Diabetes mellitus complication status: with neurologic complications Qualified Code(s): E11.42 - Type 2 diabetes mellitus with diabetic polyneuropathy; Z79.4 - shelter (current) use of insulin Code(s): E11.9 - Type 2 diabetes mellitus without complications; Z79.4 - manager terminal (current) use of insulin Status: Acute Assessment and Plan: * Hypoglycemic protocol * Metformin 500 mg PO BID * Aspart with meals changed to sliding scale yesterday with blood sugars 118-139 today. * Glargine 21 units subq at bedtime * 70/30 insulin 15 units subq BID (4) HTN (hypertension): Code(s): I10 - Essential (primary) hypertension Status: Acute Assessment and Plan: Chronic, continue home medications - losartan-HCTZ 50-12.5 mg PO daily - monitor (5) GERD (gastroesophageal reflux disease): Qualifiers: Esophagitis presence: esophagitis presence not specified Qualified Code(s): K21.9 - Gastro-esophageal reflux disease without esophagitis Code(s): K21.9 - Gastro-esophageal reflux disease without esophagitis Status: Acute Assessment and Plan: Continue Famotidine 20 mg PO daily. Time Spent With Patient Time with patient: 15 - 25 minutes Subjective Date/time seen: 08/31/24 08:38 Interval history: Patient is frustrated that he has to stay in the hospital awaiting insurance authorization. He has no complaints at this time, denying chest pain, shortness of breath, palpitations, nausea/vomiting, abdominal pain, and tingling/numbness/pain to the foot. Per care coordination note on 08/30, patient will likely remain inpatient until 09/04 as his insurance is about to change on 09/01 and authorization process will have to be restarted. Review of Systems Review of Systems: All systems reviewed & are unremarkable except as noted in HPI and below Exam Narrative: AF HR 100 RR 18 SpO2 98 BP 123/82 General: male in no acute respiratory distress who is nontoxic appearing, lying semi recumbent in bed. HEENT: Normocephalic. Atraumatic. Extraocular movement intact. Sclera clear and anicteric. No facial asymmetry. Chest: Lungs are clear to auscultation bilaterally. No wheezes or crackles. CV: Heart was regular rate and rhythm. S1/S2. No murmurs, gallops, or rubs. Abd: Abdomen was soft. Nontender. Nondistended. Positive bowel sounds. No organomegaly or masses. Ext: No clubbing, cyanosis, or edema. Wound dressing to the right foot with wound vac in place. Neuro: Speech is clear. Objective Data Vital Signs Vital Signs: Vital Signs - 24 hr 08/30/24 13:38 08/30/24 22:00 08/31/24 04:36 Temperature 97.3 F L 98.1 F Pulse Rate 102 H 100 Respiratory Rate 16 18 18 Blood Pressure 123/82 Pulse Oximetry 99 98 Intake/Output Intake/Output: Intake & Output 08/28/24 08/29/24 08/30/24 08/31/24 23:59 23:59 23:59 23:59 Intake Total 1420 1460 750 50 Output Total 400 550 Balance 1020 910 750 50 Meds/Results Medications: Active Medications Generic Name Dose Route Start Last Admin Trade Name Freq PRN Reason Stop Dose Admin Acetaminophen 650 mg 08/20/24 12:16 08/23/24 15:50 Acetaminophen 325 Mg Tablet PO 650 mg Q4H PRN Administration Mild Pain (1-3) or Fever Calcium Carbonate 200 mg 08/25/24 06:17 Calcium Carbonate (Tums) 500 Mg (200 Mg Elemental) PO Q6H PRN Indigestion Dextrose 12.5 gm 08/25/24 12:46 Dextrose 50% 25 Gm/50 Ml Syringe IV PUSH PRN PRN Hypoglycemia Protocol Glucagon 1 mg 08/25/24 12:46 Glucagon For Inj 1 Mg Vial IM PRN PRN Hypoglycemia Protocol Glucose 15 gm 08/25/24 12:46 Glucose Oral Gel 15 Gm Of Glucse In 37.5 Gm Tube PO PRN PRN Hypoglycemia Protocol Hydrochlorothiazide 12.5 mg 08/22/24 09:00 08/31/24 08:16 Hydrochlorothiazide 12.5 Mg Capsule PO 12.5 mg DAILY ARLEEN Administration Cefazolin Sodium 2 gm in 50 mls @ 100 mls/hr 08/24/24 08:00 08/31/24 06:21 Ancef 2 Gm/D5w 50 Ml IVPB Infused Q8HR ARLEEN Infusion Dextrose 1,000 mls @ 100 mls/hr 08/25/24 12:46 Dextrose 5% 1,000 Ml IVPB PRN PRN Hypoglycemia Protocol Insulin Aspart 4 - 8 units 08/25/24 17:00 08/31/24 08:16 Insulin Aspart (*Bkc) 100 Units/Ml SUB-Q Not Given TIDWM [facility] Protocol Insulin Glargine 21 units 08/20/24 21:00 08/30/24 21:39 Insulin Glargine (*Bkc) 100 Units/Ml 0.2 units/kg (21 units) 21 units SUB-Q Administration HS [facility] Insulin Human Isoph/Insulin Regular 15 units 08/23/24 17:00 08/31/24 08:16 Insulin Human Isophan/Regular 70/30 (*Bkc) 100 Units/Ml SUB-Q Not Given BIDWM ARLEEN Losartan Potassium 50 mg 08/22/24 09:00 08/31/24 08:16 Losartan Potassium 50 Mg Tablet PO 50 mg DAILY ARLEEN Administration Metformin HCl 500 mg 08/23/24 17:00 08/31/24 08:16 Metformin Hcl Xr 500 Mg Tab.Sr.24h PO 500 mg BID ARLEEN Administration Ondansetron HCl 4 mg 08/20/24 17:21 08/23/24 12:29 Ondansetron Inj 4 Mg/2 Ml Vial IV PUSH 4 mg Q6H PRN Administration Nausea And Vomiting Ondansetron HCl 4 mg 08/23/24 11:50 Ondansetron Inj 4 Mg/2 Ml Vial IV PUSH ONCE PRN Nausea Sodium Chloride 10 ml 08/28/24 14:00 08/31/24 05:52 Central Line Flush IV PUSH 10 ml Q8HR ARLEEN Administration Sodium Chloride 10 ml 08/28/24 10:38 Central Line Flush IV PUSH PRN PRN with TPN bag changes Sodium Chloride 20 ml 08/28/24 10:38 08/30/24 08:06 Central Line Flush IV PUSH 20 ml PRN PRN Administration after blood draws Radiology Results: ITS Impressions Ankle MRI 08/21/24 08:41 IMPRESSION: 1. Likely septic arthritis at the ankle and subtalar joints with draining sinus tract draining from the anterior subtalar joint/sinus Tarsi to the dorsolateral hindfoot. 2. Associated osteomyelitis most prominent at the anterior process of the calcaneus also involving portions of the talus as detailed above. 3. Overlying myositis involving the intrinsic musculature at the dorsal midfoot with suggestion of tendinopathy and likely at least partial tears of the more superficial extensor digitorum longus tendons to the fifth and possibly fourth toes. 4. Complete tear and proximal retraction of the extensor hallucis longus and anterior tibial tendons, the former with likely associated septic tenosynovitis. 5. Chronic amputation of the second toe with suspicion for osteomyelitis at the distal diaphysis of the second metatarsal. 6. 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 7. Old healed fractures at the necks of the third and fourth metatarsals. Foot MRI 08/21/24 08:41 IMPRESSION: 1. Likely septic arthritis at the ankle and subtalar joints with draining sinus tract draining from the anterior subtalar joint/sinus Tarsi to the dorsolateral hindfoot. 2. Associated osteomyelitis most prominent at the anterior process of the calcaneus also involving portions of the talus as detailed above. 3. Overlying myositis involving the intrinsic musculature at the dorsal midfoot with suggestion of tendinopathy and likely at least partial tears of the more superficial extensor digitorum longus tendons to the fifth and possibly fourth toes. 4. Complete tear and proximal retraction of the extensor hallucis longus and anterior tibial tendons, the former with likely associated septic tenosynovitis. 5. Chronic amputation of the second toe with suspicion for osteomyelitis at the distal diaphysis of the second metatarsal. 6. 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 7. Old healed fractures at the necks of the third and fourth metatarsals. Chest X-Ray 08/28/24 09:58 IMPRESSION: No acute cardiopulmonary pathology. Labs Labs: Laboratory Results - last 24 hr 08/30/24 08/30/24 08/30/24 08:16 11:46 16:49 Sodium 140 Potassium 3.4 Chloride 103 Carbon Dioxide 28 Anion Gap 9 BUN 13 Creatinine 1.30 Estim Creat Clear Calc 77 Estimated GFR 58 L Glucose 89 POC Capillary Glucose 139 H 140 H Calcium 8.4 Total Bilirubin 0.5 AST 32 ALT 14 Alkaline Phosphatase 100 Total Protein 8.0 Albumin 3.3 L 08/30/24 08/31/24 20:08 08:11 Sodium Potassium Chloride Carbon Dioxide Anion Gap BUN Creatinine Estim Creat Clear Calc Estimated GFR Glucose POC Capillary Glucose 137 H 86 Calcium Total Bilirubin AST ALT Alkaline Phosphatase Total Protein Albumin Quality VTE Prophylaxis VTE prophylaxis: mechanical ordered
[2024-08-31 12:08] LABS: Glucose Point of Care 146 mg/dl (65-105)
[2024-08-31 14:00] VITALS: BP 127/84; PULSE 92; RESP 18; TEMP 36.6; O2SAT 98
[2024-08-31] MEDS: INSULIN HUMAN ISOPHAN/REGULAR 70/30 (*BKC) 100 UNITS/ML 15 UNITS SUB-Q (16:58)
[2024-08-31 17:01] LABS: Glucose Point of Care 151 mg/dl (65-105)
[2024-08-31 21:18] LABS: Glucose Point of Care 147 mg/dl (65-105)
[2024-08-31 22:00] VITALS: BP 144/89; PULSE 99; RESP 16; TEMP 36.6; O2SAT 100
[2024-08-31] MEDS: INSULIN GLARGINE (*BKC) 100 UNITS/ML 21 UNITS SUB-Q (22:04)
[2024-09-01 06:00] VITALS: BP 150/90; PULSE 94; RESP 16; TEMP 36.6; O2SAT 98
[2024-09-01] MEDS: CENTRAL LINE FLUSH 10 ML IV PUSH ×3 (06:30→21:21)
[2024-09-01] MEDS: ceFAZolin 2 GM/D5W 50 ML 2 GM/50 ML BAG IVPB ×3 (06:30→21:19)
[2024-09-01 06:33] LABS: Basophils Percent Auto 0.6 % (0.2-1.2); Eosinophils Absolute Auto 0.2 K/mm3 (0-0.3); Eosinophils Percent Auto 3.2 % (0-4.4); Hematocrit 29.8 % (42.0-52.0); Hemoglobin 9.6 g/dL (14.0-18.0); Immature Granulocyte Absolute 0.03 K/mm3 (0.00-0.031); Immature Granulocyte Percent A 0.5 % (0-0.5); Lymphocytes Percent Auto 32.4 % (18.3-44.2); Mean Corpuscular HGB Conc 32.2 g/dl (32-36); Mean Corpuscular Hemoglobin 26.4 pg (26-34); Mean Corpuscular Volume 82.1 fl (80-100); Mean Platelet Volume 8.8 fl (7.4-10.4); Monocytes Absolute Auto 0.7 K/mm3 (0.1-0.6); Monocytes Percent Auto 10.5 % (2.6-8.5); Neutrophils Absolute Auto 3.4 K/mm3 (1.3-6.7); Neutrophils Percent Auto 52.8 % (45.5-73.1); Platelet Count Result 388 k/mm3 (150-375); Red Blood Count 3.63 M/mm3 (4.6-6.20); Red Cell Distribution Width 14.2 % (11.5-14.5); White Blood Count 6.5 K/mm3 (4.5-10.0)
[2024-09-01 06:45] LABS: Alanine Aminotransferase 14 U/L (6-50); Albumin Level 3.5 g/dL (3.5-5.1); Alkaline Phosphatase 111 U/L (38-126); Anion Gap 5 mmol/L (4-12); Aspartate Amino Transferase 28 U/L (17-59); Bilirubin,Total 0.4 mg/dL (0.2-1.3); Blood Urea Nitrogen 16 mg/dL (9-20); Calcium 8.4 mg/dL (8.4-10.2); Carbon Dioxide 30 mmol/L (22-30); Chloride 105 mmol/L (98-107); Estimated CRCL calculation 83 ml/min; Estimated Glomerular Filt Rate > 60; Glucose 105 mg/dL (65-110); Potassium 3.6 mmol/L (3.4-5.0); Sodium 140 mmol/L (137-145)
--- NOTE | 2024-09-01 07:05 | P.PNIM_ITS ---
Progress Note: A&P Assessment and Plan (1) Osteomyelitis of right foot: Qualifiers: Osteomyelitis type: other acute Qualified Code(s): M86.171 - Other acute osteomyelitis, right ankle and foot Code(s): M86.9 - Osteomyelitis, unspecified Status: Acute Assessment and Plan: S/p left 5th toe amputation in 2020, recently admitted for right foot infection underwent right TMA of 2nd toe in June 08, 2024. He has been followed up by Wound Care since discharge. Returned to ER on August 08 with right ankle pain. CT of the foot at that time showed erosions of the lateral aspect of the anterior calcaneus with adjacent ill-defined incomplete rim of enhancing soft tissue measuring 14 mm, consistent with osteomyelitis and adjacent phlegmon versus early abscess.Blood culture and wound culture were obtained which came back positive for MSSA. He has not followed up since the positive blood culture and had not been on antibiotics. In the [facility] on 08/[facility]/24 where he presented for his routine wound care. Orthopedics evaluated the patient and noted wound getting worse as well as findings of positive blood culture recently which was not treated. - Antibiotics: started on cefepime 2 gm IVPB q 8, Vancomycin 1,500 mg IVPB q 12, and Metronidiazole 500 mg PO q 8. Patient blood culture grew MSSA., switched to Ancef 2 gm ivpb q 8 on 08/24/24. - Blood cultures 08/23: staph aureus - Repeat blood cultures 08/26: NGTD - MR right ankle and MR right foot 08/21 showed: 1. Likely septic arthritis at the ankle and subtalar joints with draining sinus tract draining from the anterior subtalar joint/sinus Tarsi to the dorsolateral hindfoot. 2. Associated osteomyelitis most prominent at the anterior process of the calcaneus also involving portions of the talus as detailed above. 3. Overlying myositis involving the intrinsic musculature at the dorsal midfoot with suggestion of tendinopathy and likely at least partial tears of the more superficial extensor digitorum longus tendons to the fifth and possibly fourth toes. 4. Complete tear and proximal retraction of the extensor hallucis longus and anterior tibial tendons, the former with likely associated septic tenosynovitis. 5. Chronic amputation of the second toe with suspicion for osteomyelitis at the distal diaphysis of the second metatarsal. 6.. 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 7. Old healed fractures at the necks of the third and fourth metatarsals. - Echo: ejection fraction about 60%. Grade 1 diastolic dysfunction. 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 - Per Care coordination, home health has been set up and antibiotics have been approved. He remains inpatient waiting on wound vac approval by insurance. Patient will likely remain inpatient until 09/04 as his insurance is about to change on 09/01 and authorization process will have to be restarted. - Orthopedic consulted s/p I&D of the right foot/ankle with wound vac placement on 08/[address] Kemar Sunshine for discharge home from orthopedic standpoint when PICC line and wound VAC have been approved. (2) Bacteremia: Code(s): R78.81 - Bacteremia Status: Acute Assessment and Plan: - Blood cultures 08/23: staph aureus - Repeat blood cultures 08/26: NGTD - Antibiotics: started on cefepime 2 gm IVPB q 8, Vancomycin 1,500 mg IVPB q 12, and Metronidazole 500 mg PO q 8. Patient blood culture grew MSSA., switched to Ancef 2 gm ivpb q 8 on 08/24/24. 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 * Glargine 21 units subq at bedtime * 70/30 insulin 15 units subq BID (4) HTN (hypertension): Code(s): I10 - Essential (primary) hypertension Status: Acute Assessment and Plan: Chronic, continue home medications - losartan-HCTZ 50-12.5 mg PO daily - monitor (5) GERD (gastroesophageal reflux disease): Qualifiers: Esophagitis presence: esophagitis presence not specified Qualified Code(s): K21.9 - Gastro-esophageal reflux disease without esophagitis Code(s): K21.9 - Gastro-esophageal reflux disease without esophagitis Status: Acute Assessment and Plan: Continue Famotidine 20 mg PO daily. Time Spent With Patient Time with patient: Greater than 35 minutes Subjective Date/time seen: 09/01/24 07:05 Interval history: 48-year-old male who recently underwent left 5th toe amputation in 2020, recently admitted for right foot infection underwent right TMA of 2nd toe in June 08, 2024, presents with bacteremia from untreated infection from June's hospitalization. Patient is frustrated that he has to stay in the hospital awaiting insurance authorization. He has no complaints at this time, denying chest pain, shortness of breath, palpitations, nausea/vomiting, abdominal pain, and tingling/numbne ss/pain to the foot. Per care coordination note on 08/30, patient will likely remain inpatient until 09/04 as his insurance is about to change on 09/01 and authorization process will have to be restarted. Review of Systems Review of Systems: - CONSTITUTIONAL: Denies weight loss, fe inna and chills. - HEENT: Denies changes in vision and he aring - RESPIRATORY: Denies SOB and cough. - CV: Denies palpitations and CP. - GI: Denies abdominal pain, nausea, vom iting and diarrhea. - : Denies dysuria and urinary frequen cy. - MSK: Denies myalgia and joint pain. S ee HPI - SKIN: Denies rash and pruritus. - NEUROLOGICAL: Denies headache and sync ope. - PSYCHIATRIC: Denies recent changes in mood. Denies anxiety and depression. All systems reviewed & are unremarkable except as noted in HPI and below Exam Narrative: AF HR 100 RR 18 SpO2 98 BP 123/82 General: male in no acute respiratory distress who is nontoxic appearing, lying semi recumbent in bed. HEENT: Normocephalic. Atraumatic. Extraocular movement intact. Sclera clear and anicteric. No facial asymmetry. Chest: Lungs are clear to auscultation bilaterally. No wheezes or crackles. CV: Heart was regular rate and rhythm. S1/S2. No murmurs, gallops, or rubs. Abd: Abdomen was soft. Nontender. Nondistended. Positive bowel sounds. No organomegaly or masses. Ext: No clubbing, cyanosis, or edema. Wound dressing to the right foot with wound vac in place. Neuro: Speech is clear. Const: General: comfortable and no acute distress Eyes: Sclera: sclerae normal Neck: Neck: supple Resp: Effort & Inspection: normal respiratory effort Auscultation: clear to auscultation bilaterally Cardio: Rate: regular rate Rhythm: regular rhythm GI: Auscultation: normal bowel sounds Skin: Other: Right foot with wound vac in place and draining serosanguineous drainage. Neuro: Speech: normal speech Extrem: General: normal to inspection Other: Right foot with wound vac in place and draining serosanguineous drainage. Psych: Mental Status: mental status grossly normal Affect: normal affect Other: Flat affect Objective Data Vital Signs Vital Signs: Vital Signs - 24 hr 08/31/24 14:00 08/31/24 22:00 09/01/24 06:00 Temperature 97.8 F 97.9 F 98 F Pulse Rate 92 99 94 Respiratory Rate 18 16 16 Blood Pressure 127/84 144/89 H 150/90 H Pulse Oximetry 98 100 98 Intake/Output Intake/Output: Intake & Output 08/29/24 08/30/24 08/31/24 09/01/24 23:59 23:59 23:59 23:59 Intake Total 1460 750 990 350 Output Total 550 500 Balance 910 750 990 -150 Meds/Results Medications: Active Medications Generic Name Dose Route Start Last Admin Trade Name Freq PRN Reason Stop Dose Admin Acetaminophen 650 mg 08/20/24 12:16 08/23/24 15:50 Acetaminophen 325 Mg Tablet PO 650 mg Q4H PRN Administration Mild Pain (1-3) or Fever Calcium Carbonate 200 mg 08/25/24 06:17 Calcium Carbonate (Tums) 500 Mg (200 Mg Elemental) PO Q6H PRN Indigestion Dextrose 12.5 gm 08/25/24 12:46 Dextrose 50% 25 Gm/50 Ml Syringe IV PUSH PRN PRN Hypoglycemia Protocol Glucagon 1 mg 08/25/24 12:46 Glucagon For Inj 1 Mg Vial IM PRN PRN Hypoglycemia Protocol Glucose 15 gm 08/25/24 12:46 Glucose Oral Gel 15 Gm Of Glucse In 37.5 Gm Tube PO PRN PRN Hypoglycemia Protocol Hydrochlorothiazide 12.5 mg 08/22/24 09:00 08/31/24 08:16 Hydrochlorothiazide 12.5 Mg Capsule PO 12.5 mg DAILY ARLEEN Administration Cefazolin Sodium 2 gm in 50 mls @ 100 mls/hr 08/24/24 08:00 09/01/24 06:30 Ancef 2 Gm/D5w 50 Ml IVPB 100 mls/hr Q8HR ARLEEN Administration Dextrose 1,000 mls @ 100 mls/hr 08/25/24 12:46 Dextrose 5% 1,000 Ml IVPB PRN PRN Hypoglycemia Protocol Insulin Aspart 4 - 8 units 08/25/24 17:00 08/31/24 16:59 Insulin Aspart (*Bkc) 100 Units/Ml SUB-Q Not Given T[facility] Protocol Insulin Glargine 21 units 08/20/24 21:00 08/31/24 22:04 Insulin Glargine (*Bkc) 100 Units/Ml 0.2 units/kg (21 units) 21 units SUB-Q Administration [facility] Insulin Human Isoph/Insulin Regular 15 units 08/23/24 17:00 08/31/24 16:58 Insulin Human Isophan/Regular 70/30 (*Bkc) 100 Units/Ml SUB-Q 15 units BIDWM ARLEEN Administration Losartan Potassium 50 mg 08/22/24 09:00 08/31/24 08:16 Losartan Potassium 50 Mg Tablet PO 50 mg DAILY ARLEEN Administration Metformin HCl 500 mg 08/23/24 17:00 08/31/24 16:59 Metformin Hcl Xr 500 Mg Tab.Sr.24h PO 500 mg BID ARLEEN Administration Ondansetron HCl 4 mg 08/20/24 17:21 08/23/24 12:29 Ondansetron Inj 4 Mg/2 Ml Vial IV PUSH 4 mg Q6H PRN Administration Nausea And Vomiting Ondansetron HCl 4 mg 08/23/24 11:50 Ondansetron Inj 4 Mg/2 Ml Vial IV PUSH ONCE PRN Nausea Sodium Chloride 10 ml 08/28/24 14:00 09/01/24 06:30 Central Line Flush IV PUSH 10 ml Q8HR ARLEEN Administration Sodium Chloride 10 ml 08/28/24 10:38 Central Line Flush IV PUSH PRN PRN with TPN bag changes Sodium Chloride 20 ml 08/28/24 10:38 08/30/24 08:06 Central Line Flush IV PUSH 20 ml PRN PRN Administration after blood draws Radiology Results: ITS Impressions Ankle MRI 08/21/24 08:41 IMPRESSION: 1. Likely septic arthritis at the ankle and subtalar joints with draining sinus tract draining from the anterior subtalar joint/sinus Tarsi to the dorsolateral hindfoot. 2. Associated osteomyelitis most prominent at the anterior process of the calcaneus also involving portions of the talus as detailed above. 3. Overlying myositis involving the intrinsic musculature at the dorsal midfoot with suggestion of tendinopathy and likely at least partial tears of the more superficial extensor digitorum longus tendons to the fifth and possibly fourth toes. 4. Complete tear and proximal retraction of the extensor hallucis longus and anterior tibial tendons, the former with likely associated septic tenosynovitis. 5. Chronic amputation of the second toe with suspicion for osteomyelitis at the distal diaphysis of the second metatarsal. 6. 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 7. Old healed fractures at the necks of the third and fourth metatarsals. Foot MRI 08/21/24 08:41 IMPRESSION: 1. Likely septic arthritis at the ankle and subtalar joints with draining sinus tract draining from the anterior subtalar joint/sinus Tarsi to the dorsolateral hindfoot. 2. Associated osteomyelitis most prominent at the anterior process of the calcaneus also involving portions of the talus as detailed above. 3. Overlying myositis involving the intrinsic musculature at the dorsal midfoot with suggestion of tendinopathy and likely at least partial tears of the more superficial extensor digitorum longus tendons to the fifth and possibly fourth toes. 4. Complete tear and proximal retraction of the extensor hallucis longus and anterior tibial tendons, the former with likely associated septic tenosynovitis. 5. Chronic amputation of the second toe with suspicion for osteomyelitis at the distal diaphysis of the second metatarsal. 6. 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 7. Old healed fractures at the necks of the third and fourth metatarsals. Chest X-Ray 08/28/24 09:58 IMPRESSION: No acute cardiopulmonary pathology. Labs Labs: Laboratory Results - last 24 hr 08/31/24 08/31/24 08/31/24 08:11 12:03 16:54 WBC RBC Hgb Hct MCV MCH MCHC RDW Plt Count MPV Immature Gran % (Auto) Neut % (Auto) Lymph % (Auto) [place] % (Auto) Eos % (Auto) Baso % (Auto) Lymph # (Auto) [place] # (Auto) Eos # (Auto) Baso # (Auto) Abs Immat Gran (auto) Absolute Neuts (auto) Absolute Nucleated RBC Nucleated RBC % Sodium Potassium Chloride Carbon Dioxide Anion Gap BUN Creatinine Estim Creat Clear Calc Estimated GFR Glucose POC Capillary Glucose 86 146 H 151 H Calcium Total Bilirubin AST ALT Alkaline Phosphatase Total Protein Albumin 08/31/24 09/01/24 20:58 06:29 WBC 6.5 RBC 3.63 L Hgb 9.6 L Hct 29.8 L MCV 82.1 MCH 26.4 MCHC 32.2 RDW 14.2 Plt Count 388 H MPV 8.8 Immature Gran % (Auto) 0.5 Neut % (Auto) 52.8 Lymph % (Auto) 32.4 [place] % (Auto) 10.5 H Eos % (Auto) 3.2 Baso % (Auto) 0.6 Lymph # (Auto) 2.10 [place] # (Auto) 0.7 H Eos # (Auto) 0.2 Baso # (Auto) 0.0 Abs Immat Gran (auto) 0.03 Absolute Neuts (auto) 3.4 Absolute Nucleated RBC 0.000 Nucleated RBC % 0.0 Sodium 140 Potassium 3.6 Chloride 105 Carbon Dioxide 30 Anion Gap 5 BUN 16 Creatinine 1.20 Estim Creat Clear Calc 83 Estimated GFR > 60 Glucose 105 POC Capillary Glucose 147 H Calcium 8.4 Total Bilirubin 0.4 AST 28 ALT 14 Alkaline Phosphatase 111 Total Protein 8.0 Albumin 3.5 Quality VTE Prophylaxis VTE prophylaxis: mechanical ordered
[2024-09-01 08:03] LABS: Glucose Point of Care 103 mg/dl (65-105)
[2024-09-01] MEDS: LOSARTAN POTASSIUM 50 MG TABLET PO (09:05)
[2024-09-01] MEDS: metFORMIN HCL XR 500 MG TAB.SR.24H PO ×2 (09:05→17:26)
[2024-09-01] MEDS: hydroCHLOROthiazide 12.5 MG CAPSULE PO (09:05)
[2024-09-01 11:49] LABS: Glucose Point of Care 138 mg/dl (65-105)
[2024-09-01 14:00] VITALS: BP 153/90; PULSE 100; RESP 18; TEMP 36.1; O2SAT 100
--- NOTE | 2024-09-01 15:09 | PCOTNOTE ---
Attempted to see pt for OT treatment. Pt declined need to participate or have therapy services stating that he has been doing everything himself in the room without assistance. RN can confirm that pt has been up ad nelia in room with w/w and wearing cam boot when OOB. Per RN, pt is still here due to insurance issues. Will discuss with OTR about possible d/c from OT services.
[2024-09-01 17:17] LABS: Glucose Point of Care 128 mg/dl (65-105)
[2024-09-01] MEDS: INSULIN HUMAN ISOPHAN/REGULAR 70/30 (*BKC) 100 UNITS/ML 15 UNITS SUB-Q (17:27)
[2024-09-01 21:04] LABS: Glucose Point of Care 125 mg/dl (65-105)
[2024-09-01 21:13] VITALS: BP 133/82; PULSE 95; RESP 16; TEMP 36.6; O2SAT 99
[2024-09-01] MEDS: INSULIN GLARGINE (*BKC) 100 UNITS/ML 21 UNITS SUB-Q (21:20)
[2024-09-02] MEDS: ceFAZolin 2 GM/D5W 50 ML 2 GM/50 ML BAG IVPB (05:08)
[2024-09-02] MEDS: CENTRAL LINE FLUSH 10 ML IV PUSH ×3 (05:09→22:03)
[2024-09-02 05:27] LABS: Basophils Percent Auto 0.3 % (0.2-1.2); Eosinophils Absolute Auto 0.2 K/mm3 (0-0.3); Hematocrit 28.7 % (42.0-52.0); Hemoglobin 9.2 g/dL (14.0-18.0); Immature Granulocyte Absolute 0.02 K/mm3 (0.00-0.031); Immature Granulocyte Percent A 0.3 % (0-0.5); Lymphocytes Absolute Auto 1.92 K/mm3 (0.9-3.2); Lymphocytes Percent Auto 31.9 % (18.3-44.2); Mean Corpuscular HGB Conc 32.1 g/dl (32-36); Mean Corpuscular Hemoglobin 26.4 pg (26-34); Mean Corpuscular Volume 82.5 fl (80-100); Mean Platelet Volume 9.3 fl (7.4-10.4); Monocytes Absolute Auto 0.6 K/mm3 (0.1-0.6); Monocytes Percent Auto 10.1 % (2.6-8.5); Neutrophils Absolute Auto 3.3 K/mm3 (1.3-6.7); Neutrophils Percent Auto 54.4 % (45.5-73.1); Platelet Count Result 371 k/mm3 (150-375); Red Blood Count 3.48 M/mm3 (4.6-6.20); Red Cell Distribution Width 14.3 % (11.5-14.5)
[2024-09-02 05:28] VITALS: BP 148/93; PULSE 96; RESP 16; TEMP 36.3; O2SAT 98
[2024-09-02 05:45] LABS: Alanine Aminotransferase 13 U/L (6-50); Albumin Level 3.4 g/dL (3.5-5.1); Alkaline Phosphatase 112 U/L (38-126); Anion Gap 5 mmol/L (4-12); Aspartate Amino Transferase 27 U/L (17-59); Bilirubin,Total 0.5 mg/dL (0.2-1.3); Blood Urea Nitrogen 14 mg/dL (9-20); Calcium 8.2 mg/dL (8.4-10.2); Carbon Dioxide 30 mmol/L (22-30); Chloride 104 mmol/L (98-107); Estimated CRCL calculation 77 ml/min; Estimated Glomerular Filt Rate 58; Glucose 101 mg/dL (65-110); Potassium 3.3 mmol/L (3.4-5.0); Sodium 139 mmol/L (137-145)
--- NOTE | 2024-09-02 07:25 | PM.IMPN ---
Progress Note: A&P Assessment and Plan (1) Osteomyelitis of right foot: Qualifiers: Osteomyelitis type: other acute Qualified Code(s): M86.171 - Other acute osteomyelitis, right ankle and foot Code(s): M86.9 - Osteomyelitis, unspecified Status: Acute Assessment and Plan: S/p left 5th toe amputation in 2020, recently admitted for right foot infection underwent right TMA of 2nd toe in June 08, 2024. He has been followed up by Wound Care since discharge. Returned to ER on August 08 with right ankle pain. CT of the foot at that time showed erosions of the lateral aspect of the anterior calcaneus with adjacent ill-defined incomplete rim of enhancing soft tissue measuring 14 mm, consistent with osteomyelitis and adjacent phlegmon versus early abscess.Blood culture and wound culture were obtained which came back positive for MSSA. He has not followed up since the positive blood culture and had not been on antibiotics. In [facility] on 08[facility]24 where he presented for his routine wound care. Orthopedics evaluated the patient and noted wound getting worse as well as findings of positive blood culture recently which was not treated. - Antibiotics: started on cefepime 2 gm IVPB q 8, Vancomycin 1,500 mg IVPB q 12, and Metronidiazole 500 mg PO q 8. Patient blood culture grew MSSA., switched to Ancef 2 gm ivpb q 8 on 08/24/24. - Blood cultures 08/23: staph aureus - Repeat blood cultures 08/26: NGTD - MR right ankle and MR right foot 08/21 showed: 1. Likely septic arthritis at the ankle and subtalar joints with draining sinus tract draining from the anterior subtalar joint/sinus Tarsi to the dorsolateral hindfoot. 2. Associated osteomyelitis most prominent at the anterior process of the calcaneus also involving portions of the talus as detailed above. 3. Overlying myositis involving the intrinsic musculature at the dorsal midfoot with suggestion of tendinopathy and likely at least partial tears of the more superficial extensor digitorum longus tendons to the fifth and possibly fourth toes. 4. Complete tear and proximal retraction of the extensor hallucis longus and anterior tibial tendons, the former with likely associated septic tenosynovitis. 5. Chronic amputation of the second toe with suspicion for osteomyelitis at the distal diaphysis of the second metatarsal. 6.. 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 7. Old healed fractures at the necks of the third and fourth metatarsals. - Echo: ejection fraction about 60%. Grade 1 diastolic dysfunction. - Monitor vital signs, I&Os, neuro status and patient is a fall risk - Monitor serum electrolytes, CBC, cultures, WBC and temp curve - PICC line placed will require long term care administrator antibiotics, per ID pharm patient will be discharged on Oxacillin 12 g q 24h (over 24h) or Nafcillin 12g q24h (over 24h) for 6 weeks (from time of cleared blood culture) to complete the course. - Per Care coordination, home health has been set up and antibiotics have been approved. He remains inpatient waiting on wound vac approval by insurance. Patient will likely remain inpatient until 09/04 as his insurance is about to change on 09/01 and authorization process will have to be restarted. - Orthopedic consulted s/p I&D of the right foot/ankle with wound vac placement on 08/[address] Kemar Sunshine for discharge home from orthopedic standpoint when PICC line and wound VAC have been approved. PICC line has been placed, home wound vac is approved. waiting on prior authorization for home IV antibiotics (2) Bacteremia: Code(s): R78.81 - Bacteremia Status: Acute Assessment and Plan: stable - Blood cultures 08/23: staph aureus - Repeat blood cultures 08/26: NGTD - Antibiotics: started on cefepime 2 gm IVPB q 8, Vancomycin 1,500 mg IVPB q 12, and Metronidazole 500 mg PO q 8. Patient blood culture grew MSSA., switched to Ancef 2 gm ivpb q 8 on 08/24/24. 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 Glargine 21 units subq at bedtime 70/30 insulin 15 units subq BID (4) HTN (hypertension): Code(s): I10 - Essential (primary) hypertension Status: Acute Assessment and Plan: Chronic, continue home medications - losartan-HCTZ 50-12.5 mg PO daily - monitor (5) GERD (gastroesophageal reflux disease): Qualifiers: Esophagitis presence: esophagitis presence not specified Qualified Code(s): K21.9 - Gastro-esophageal reflux disease without esophagitis Code(s): K21.9 - Gastro-esophageal reflux disease without esophagitis Status: Acute Assessment and Plan: Continue Famotidine 20 mg PO daily. (6) Hypokalemia: Code(s): E87.6 - Hypokalemia Status: Acute Assessment and Plan: Daily BMP Replace as needed Time Spent With Patient Time: Includes review of chart, time spent family, consulting teams and nursing. Vital signs were reviewed and they are stable. His medications will be reviewed and resumed as appropriate. Findings and treatment plan were discussed with the patient. Questions were solicited and answered to satisfaction. Care plan was discussed with nursing. greater than 55 minute Subjective Date/time seen: 09/02/24 07:25 Interval history: 48-year-old male who recently underwent left 5th toe amputation in 2020, recently admitted for right foot infection underwent right TMA of 2nd toe in June 08, 2024, presents with bacteremia from untreated infection from June's hospitalization. Patient is frustrated that he has to stay in the hospital awaiting insurance authorization. He has no complaints at this time, denying chest pain, shortness of breath, palpitations, nausea/vomiting, abdominal pain, and tingling/numbness/pain to the foot. Per care coordination note on 08/30, patient will likely remain inpatient until 09/04 as his insurance is about to change on 09/01 and authorization process will have to be restarted. K 3.3 this AM replaced Back has been approved for patient. Insurance required preauthorization for antibiotics. patient was given 1st dose of oxacillin to without issue of allergic reaction. Review of Systems Review of Systems: - CONSTITUTIONAL: Denies weight loss, fever and chills. - HEENT: Denies changes in vision and hearing - RESPIRATORY: Denies SOB and cough. - CV: Denies palpitations and CP. - GI: Denies abdominal pain, nausea, vomiting and diarrhea. - : Denies dysuria and urinary frequency. - MSK: Denies myalgia and joint pain. See HPI - SKIN: Denies rash and pruritus. - NEUROLOGICAL: Denies headache and syncope. - PSYCHIATRIC: Denies recent changes in mood. Denies anxiety and depression. All systems reviewed & are unremarkable except as noted in HPI and below Exam Narrative: AF HR 100 RR 18 SpO2 98 BP 123/82 General: male in no acute respiratory distress who is nontoxic appearing, lying semi recumbent in bed. HEENT: Normocephalic. Atraumatic. Extraocular movement intact. Sclera clear and anicteric. No facial asymmetry. Chest: Lungs are clear to auscultation bilaterally. No wheezes or crackles. CV: Heart was regular rate and rhythm. S1/S2. No murmurs, gallops, or rubs. Abd: Abdomen was soft. Nontender. Nondistended. Positive bowel sounds. No organomegaly or masses. Ext: No clubbing, cyanosis, or edema. Wound dressing to the right foot with wound vac in place. Neuro: Speech is clear. Const: General: comfortable and no acute distress Eyes: Sclera: sclerae normal Neck: Neck: supple Resp: Effort & Inspection: normal respiratory effort Auscultation: clear to auscultation bilaterally Cardio: Rate: regular rate Rhythm: regular rhythm GI: Auscultation: normal bowel sounds Skin: Other: Right foot with wound vac in place and draining serosanguineous drainage. Neuro: Speech: normal speech Extrem: General: normal to inspection Other: Right foot with wound vac in place and draining serosanguineous drainage. Psych: Mental Status: mental status grossly normal Affect: normal affect Other: Flat affect Objective Data Vital Signs Vital Signs: Vital Signs - 24 hr 09/01/24 09:05 09/01/24 14:00 09/01/24 21:13 Temperature 97.0 F L 97.9 F Pulse Rate 100 95 Respiratory Rate 18 16 Blood Pressure 153/90 H 133/82 Pulse Oximetry 100 99 Oxygen Delivery Room Air 09/02/24 05:28 Temperature 97.4 F L Pulse Rate 96 Respiratory Rate 16 Blood Pressure 148/93 H Pulse Oximetry 98 Oxygen Delivery Intake/Output Intake/Output: Intake & Output 08/30/24 08/31/24 09/01/24 09/02/24 23:59 23:59 23:59 23:59 Intake Total 588 371 7412 500 Output Total 500 Balance 750 990 720 500 Meds/Results Medications: Active Medications Generic Name Dose Route Start Last Admin Trade Name Freq PRN Reason Stop Dose Admin Acetaminophen 650 mg 08/20/24 12:16 08/23/24 15:50 Acetaminophen 325 Mg Tablet PO 650 mg Q4H PRN Administration Mild Pain (1-3) or Fever Calcium Carbonate 200 mg 08/25/24 06:17 Calcium Carbonate (Tums) 500 Mg (200 Mg Elemental) PO Q6H PRN Indigestion Dextrose 12.5 gm 08/25/24 12:46 Dextrose 50% 25 Gm/50 Ml Syringe IV PUSH PRN PRN Hypoglycemia Protocol Glucagon 1 mg 08/25/24 12:46 Glucagon For Inj 1 Mg Vial IM PRN PRN Hypoglycemia Protocol Glucose 15 gm 08/25/24 12:46 Glucose Oral Gel 15 Gm Of Glucse In 37.5 Gm Tube PO PRN PRN Hypoglycemia Protocol Hydrochlorothiazide 12.5 mg 08/22/24 09:00 09/01/24 09:05 Hydrochlorothiazide 12.5 Mg Capsule PO 12.5 mg DAILY ARLEEN Administration Cefazolin Sodium 2 gm in 50 mls @ 100 mls/hr 08/24/24 08:00 09/02/24 05:08 Ancef 2 Gm/D5w 50 Ml IVPB 100 mls/hr Q8HR ARLEEN Administration Dextrose 1,000 mls @ 100 mls/hr 08/25/24 12:46 Dextrose 5% 1,000 Ml IVPB PRN PRN Hypoglycemia Protocol Insulin Aspart 4 - 8 units 08/25/24 17:00 09/01/24 17:35 Insulin Aspart (*Bkc) 100 Units/Ml SUB-Q Not Given TIDWM [facility] Protocol Insulin Glargine 21 units 08/20/24 21:00 09/01/24 21:20 Insulin Glargine (*Bkc) 100 Units/Ml 0.2 units/kg (21 units) 21 units SUB-Q Administration HS [facility] Insulin Human Isoph/Insulin Regular 15 units 08/23/24 17:00 09/01/24 17:27 Insulin Human Isophan/Regular 70/30 (*Bkc) 100 Units/Ml SUB-Q 15 units BIDWM ARLEEN Administration Losartan Potassium 50 mg 08/22/24 09:00 09/01/24 09:05 Losartan Potassium 50 Mg Tablet PO 50 mg DAILY ARLEEN Administration Metformin HCl 500 mg 08/23/24 17:00 09/01/24 17:26 Metformin Hcl Xr 500 Mg Tab.Sr.24h PO 500 mg BID ARLEEN Administration Ondansetron HCl 4 mg 08/20/24 17:21 08/23/24 12:29 Ondansetron Inj 4 Mg/2 Ml Vial IV PUSH 4 mg Q6H PRN Administration Nausea And Vomiting Ondansetron HCl 4 mg 08/23/24 11:50 Ondansetron Inj 4 Mg/2 Ml Vial IV PUSH ONCE PRN Nausea Sodium Chloride 10 ml 08/28/24 14:00 09/02/24 05:09 Central Line Flush IV PUSH 10 ml Q8HR ARLEEN Administration Sodium Chloride 10 ml 08/28/24 10:38 Central Line Flush IV PUSH PRN PRN with TPN bag changes Sodium Chloride 20 ml 08/28/24 10:38 08/30/24 08:06 Central Line Flush IV PUSH 20 ml PRN PRN Administration after blood draws Radiology Results: ITS Impressions Ankle MRI 08/21/24 08:41 IMPRESSION: 1. Likely septic arthritis at the ankle and subtalar joints with draining sinus tract draining from the anterior subtalar joint/sinus Tarsi to the dorsolateral hindfoot. 2. Associated osteomyelitis most prominent at the anterior process of the calcaneus also involving portions of the talus as detailed above. 3. Overlying myositis involving the intrinsic musculature at the dorsal midfoot with suggestion of tendinopathy and likely at least partial tears of the more superficial extensor digitorum longus tendons to the fifth and possibly fourth toes. 4. Complete tear and proximal retraction of the extensor hallucis longus and anterior tibial tendons, the former with likely associated septic tenosynovitis. 5. Chronic amputation of the second toe with suspicion for osteomyelitis at the distal diaphysis of the second metatarsal. 6. 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 7. Old healed fractures at the necks of the third and fourth metatarsals. Foot MRI 08/21/24 08:41 IMPRESSION: 1. Likely septic arthritis at the ankle and subtalar joints with draining sinus tract draining from the anterior subtalar joint/sinus Tarsi to the dorsolateral hindfoot. 2. Associated osteomyelitis most prominent at the anterior process of the calcaneus also involving portions of the talus as detailed above. 3. Overlying myositis involving the intrinsic musculature at the dorsal midfoot with suggestion of tendinopathy and likely at least partial tears of the more superficial extensor digitorum longus tendons to the fifth and possibly fourth toes. 4. Complete tear and proximal retraction of the extensor hallucis longus and anterior tibial tendons, the former with likely associated septic tenosynovitis. 5. Chronic amputation of the second toe with suspicion for osteomyelitis at the distal diaphysis of the second metatarsal. 6. 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 7. Old healed fractures at the necks of the third and fourth metatarsals. Chest X-Ray 08/28/24 09:58 IMPRESSION: No acute cardiopulmonary pathology. Labs Labs: Laboratory Results - last 24 hr 09/01/24 09/01/24 09/01/24 07:52 11:39 17:07 WBC RBC Hgb Hct MCV MCH MCHC RDW Plt Count MPV Immature Gran % (Auto) Neut % (Auto) Lymph % (Auto) [place] % (Auto) Eos % (Auto) Baso % (Auto) Lymph # (Auto) [place] # (Auto) Eos # (Auto) Baso # (Auto) Abs Immat Gran (auto) Absolute Neuts (auto) Absolute Nucleated RBC Nucleated RBC % Sodium Potassium Chloride Carbon Dioxide Anion Gap BUN Creatinine Estim Creat Clear Calc Estimated GFR Glucose POC Capillary Glucose 103 138 H 128 H Calcium Total Bilirubin AST ALT Alkaline Phosphatase Total Protein Albumin 09/01/24 09/02/24 20:38 05:08 WBC 6.0 RBC 3.48 L Hgb 9.2 L Hct 28.7 L MCV 82.5 MCH 26.4 MCHC 32.1 RDW 14.3 Plt Count 371 MPV 9.3 Immature Gran % (Auto) 0.3 Neut % (Auto) 54.4 Lymph % (Auto) 31.9 [place] % (Auto) 10.1 H Eos % (Auto) 3.0 Baso % (Auto) 0.3 Lymph # (Auto) 1.92 [place] # (Auto) 0.6 Eos # (Auto) 0.2 Baso # (Auto) 0.0 Abs Immat Gran (auto) 0.02 Absolute Neuts (auto) 3.3 Absolute Nucleated RBC 0.000 Nucleated RBC % 0.0 Sodium 139 Potassium 3.3 L Chloride 104 Carbon Dioxide 30 Anion Gap 5 BUN 14 Creatinine 1.30 Estim Creat Clear Calc 77 Estimated GFR 58 L Glucose 101 POC Capillary Glucose 125 H Calcium 8.2 L Total Bilirubin 0.5 AST 27 ALT 13 Alkaline Phosphatase 112 Total Protein 7.0 Albumin 3.4 L Quality VTE Prophylaxis VTE prophylaxis: mechanical ordered
[2024-09-02 08:03] LABS: Glucose Point of Care 102 mg/dl (65-105)
[2024-09-02] MEDS: LOSARTAN POTASSIUM 50 MG TABLET PO (08:44)
[2024-09-02] MEDS: INSULIN HUMAN ISOPHAN/REGULAR 70/30 (*BKC) 100 UNITS/ML 15 UNITS SUB-Q ×2 (08:44→17:54)
[2024-09-02] MEDS: hydroCHLOROthiazide 12.5 MG CAPSULE PO (08:44)
[2024-09-02] MEDS: metFORMIN HCL XR 500 MG TAB.SR.24H PO ×2 (08:44→17:54)
[2024-09-02] MEDS: POTASSIUM CHLORIDE 20 MEQ ER TABLET PO (08:44)
--- NOTE | 2024-09-02 09:01 | P.PNOP_ITS ---
Progress Note: A&P Assessment and Plan (1) Osteomyelitis of right foot: Qualifiers: Osteomyelitis type: other acute Qualified Code(s): M86.171 - Other acute osteomyelitis, right ankle and foot Code(s): M86.9 - Osteomyelitis, unspecified Status: Acute Assessment and Plan: POD #10: Debridement right ankle and foot. Wound VAC in place. Wound VAC dressing change today. Culture showing pansensitive Staph. Blood cultures most recent negative to date. Previous discussion of salvage of the foot versus amputation. He has declined amputation at this time. He would like to try to salvage the foot. Reviewed length of time that would be involved and the necessary steps including possible further surgeries in the future. PICC line long-term antibiotics. Plan to continue wound VAC. Fracture boot when OOB. Will follow in [facility]. 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 Time Spent With Patient Time: Reviewed history, exam, radiographs and current labs with attending MD and covering surgeon, Dr. Reinoso, who agrees with current plan as indicated above. No further recommendations from Dr. Reinoso at this time. Time with patient: less than 15 minutes Subjective Subjective Date/Time Seen: 09/02/24 09:01 Post Op day: 10 Principal diagnosis: Right foot osteomyelitis with septic arthritis Interval history: POD #10: I&D of the right ankle and subtalar joint with application wound VAC. Patient without new complaints. Improvement in pain with the ROM of the right foot/ankle. Wound VAC in place. PICC line in place. Awaiting insurance authorization. Review of Systems Review of Systems: All systems reviewed & are unremarkable except as noted in HPI and below Exam Const: General: alert and awake Orientation/consciousness: patient oriented x3 Limitations: no limitations HENMT: Head: normal to inspection Neck: Neck: normal visual inspection Extrem: Right lower extremity: ankle Details: tenderness Location: of the lateral malleolus and of the medial malleolus, swelling Details: laterally and posteriorly, abnormal ROM Details: pain with active ROM Details: with plantar flexion and with dorsiflexion and pain with passive ROM Details: with plantar flexion and with dorsiflexion, warmth and other (redness, laterally ); no ecchymosis and foot ( 2nd toe amputation) Details: abnormal to inspection, vascular exam Details: abnormal capillary refill Location: of all toes; dorsalis pedis pulse absent and posterior tibial pulse absent and motor-sensory exam Details: light-touch abnormal; abnormal capillary refill Other: Wound on the dorsal lateral aspect of the right foot with wound VAC in place. Very good improvement in granulation tissue. Erythema to the right lateral ankle significantly improved. Additional wound at the side of the 2nd toe amputation improved. No malodor. Wound VAC dressing changed. Wound nurses present for exact wound dimensions. Objective Data Vital Signs Vital Signs: Vital Signs - 24 hr 09/01/24 09:05 09/01/24 14:00 09/01/24 21:13 Temperature 36.1 C L 36.6 C Pulse Rate 100 95 Respiratory Rate 18 16 Blood Pressure 153/90 H 133/82 Pulse Oximetry 100 99 Oxygen Delivery Room Air 09/02/24 05:28 Temperature 36.3 C L Pulse Rate 96 Respiratory Rate 16 Blood Pressure 148/93 H Pulse Oximetry 98 Oxygen Delivery Intake/Output Intake/Output: Intake & Output 08/30/24 08/31/24 09/01/24 09/02/24 23:59 23:59 23:59 23:59 Intake Total 105 824 9893 740 Output Total 500 Balance 750 990 720 740 Meds/Results Medications: Active Medications Generic Name Dose Route Start Last Admin Trade Name Freq PRN Reason Stop Dose Admin Acetaminophen 650 mg 08/20/24 12:16 08/23/24 15:50 Acetaminophen 325 Mg Tablet PO 650 mg Q4H PRN Administration Mild Pain (1-3) or Fever Calcium Carbonate 200 mg 08/25/24 06:17 Calcium Carbonate (Tums) 500 Mg (200 Mg Elemental) PO Q6H PRN Indigestion Dextrose 12.5 gm 08/25/24 12:46 Dextrose 50% 25 Gm/50 Ml Syringe IV PUSH PRN PRN Hypoglycemia Protocol Glucagon 1 mg 08/25/24 12:46 Glucagon For Inj 1 Mg Vial IM PRN PRN Hypoglycemia Protocol Glucose 15 gm 08/25/24 12:46 Glucose Oral Gel 15 Gm Of Glucse In 37.5 Gm Tube PO PRN PRN Hypoglycemia Protocol Hydrochlorothiazide 12.5 mg 08/22/24 09:00 09/02/24 08:44 Hydrochlorothiazide 12.5 Mg Capsule PO 12.5 mg DAILY ARLEEN Administration Cefazolin Sodium 2 gm in 50 mls @ 100 mls/hr 08/24/24 08:00 09/02/24 05:08 Ancef 2 Gm/D5w 50 Ml IVPB 100 mls/hr Q8HR ARLEEN Administration Dextrose 1,000 mls @ 100 mls/hr 08/25/24 12:46 Dextrose 5% 1,000 Ml IVPB PRN PRN Hypoglycemia Protocol Insulin Aspart 4 - 8 units 08/25/24 17:00 09/02/24 08:07 Insulin Aspart (*Bkc) 100 Units/Ml SUB-Q Not Given TIDWM [facility] Protocol Insulin Glargine 21 units 08/20/24 21:00 09/01/24 21:20 Insulin Glargine (*Bkc) 100 Units/Ml 0.2 units/kg (21 units) 21 units SUB-Q Administration [facility] Insulin Human Isoph/Insulin Regular 15 units 08/23/24 17:00 09/02/24 08:44 Insulin Human Isophan/Regular 70/30 (*Bkc) 100 Units/Ml SUB-Q 15 units BIDWM ARLEEN Administration Losartan Potassium 50 mg 08/22/24 09:00 09/02/24 08:44 Losartan Potassium 50 Mg Tablet PO 50 mg DAILY ARLEEN Administration Metformin HCl 500 mg 08/23/24 17:00 09/02/24 08:44 Metformin Hcl Xr 500 Mg Tab.Sr.24h PO 500 mg BID ARLEEN Administration Ondansetron HCl 4 mg 08/20/24 17:21 08/23/24 12:29 Ondansetron Inj 4 Mg/2 Ml Vial IV PUSH 4 mg Q6H PRN Administration Nausea And Vomiting Ondansetron HCl 4 mg 08/23/24 11:50 Ondansetron Inj 4 Mg/2 Ml Vial IV PUSH ONCE PRN Nausea Sodium Chloride 10 ml 08/28/24 14:00 09/02/24 05:09 Central Line Flush IV PUSH 10 ml Q8HR ARLEEN Administration Sodium Chloride 10 ml 08/28/24 10:38 Central Line Flush IV PUSH PRN PRN with TPN bag changes Sodium Chloride 20 ml 08/28/24 10:38 08/30/24 08:06 Central Line Flush IV PUSH 20 ml PRN PRN Administration after blood draws Radiology Results: ITS Impressions Ankle MRI 08/21/24 08:41 IMPRESSION: 1. Likely septic arthritis at the ankle and subtalar joints with draining sinus tract draining from the anterior subtalar joint/sinus Tarsi to the dorsolateral hindfoot. 2. Associated osteomyelitis most prominent at the anterior process of the calcaneus also involving portions of the talus as detailed above. 3. Overlying myositis involving the intrinsic musculature at the dorsal midfoot with suggestion of tendinopathy and likely at least partial tears of the more superficial extensor digitorum longus tendons to the fifth and possibly fourth toes. 4. Complete tear and proximal retraction of the extensor hallucis longus and anterior tibial tendons, the former with likely associated septic tenosynovitis. 5. Chronic amputation of the second toe with suspicion for osteomyelitis at the distal diaphysis of the second metatarsal. 6. 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 7. Old healed fractures at the necks of the third and fourth metatarsals. Foot MRI 08/21/24 08:41 IMPRESSION: 1. Likely septic arthritis at the ankle and subtalar joints with draining sinus tract draining from the anterior subtalar joint/sinus Tarsi to the dorsolateral hindfoot. 2. Associated osteomyelitis most prominent at the anterior process of the calcaneus also involving portions of the talus as detailed above. 3. Overlying myositis involving the intrinsic musculature at the dorsal midfoot with suggestion of tendinopathy and likely at least partial tears of the more superficial extensor digitorum longus tendons to the fifth and possibly fourth toes. 4. Complete tear and proximal retraction of the extensor hallucis longus and anterior tibial tendons, the former with likely associated septic tenosynovitis. 5. Chronic amputation of the second toe with suspicion for osteomyelitis at the distal diaphysis of the second metatarsal. 6. 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 7. Old healed fractures at the necks of the third and fourth metatarsals. Chest X-Ray 08/28/24 09:58 IMPRESSION: No acute cardiopulmonary pathology. Labs Labs: Laboratory Results - last 24 hr 09/01/24 09/01/24 09/01/24 11:39 17:07 20:38 WBC RBC Hgb Hct MCV MCH MCHC RDW Plt Count MPV Immature Gran % (Auto) Neut % (Auto) Lymph % (Auto) [place] % (Auto) Eos % (Auto) Baso % (Auto) Lymph # (Auto) [place] # (Auto) Eos # (Auto) Baso # (Auto) Abs Immat Gran (auto) Absolute Neuts (auto) Absolute Nucleated RBC Nucleated RBC % Sodium Potassium Chloride Carbon Dioxide Anion Gap BUN Creatinine Estim Creat Clear Calc Estimated GFR Glucose POC Capillary Glucose 138 H 128 H 125 H Calcium Total Bilirubin AST ALT Alkaline Phosphatase Total Protein Albumin 09/02/24 09/02/24 05:08 07:49 WBC 6.0 RBC 3.48 L Hgb 9.2 L Hct 28.7 L MCV 82.5 MCH 26.4 MCHC 32.1 RDW 14.3 Plt Count 371 MPV 9.3 Immature Gran % (Auto) 0.3 Neut % (Auto) 54.4 Lymph % (Auto) 31.9 [place] % (Auto) 10.1 H Eos % (Auto) 3.0 Baso % (Auto) 0.3 Lymph # (Auto) 1.92 [place] # (Auto) 0.6 Eos # (Auto) 0.2 Baso # (Auto) 0.0 Abs Immat Gran (auto) 0.02 Absolute Neuts (auto) 3.3 Absolute Nucleated RBC 0.000 Nucleated RBC % 0.0 Sodium 139 Potassium 3.3 L Chloride 104 Carbon Dioxide 30 Anion Gap 5 BUN 14 Creatinine 1.30 Estim Creat Clear Calc 77 Estimated GFR 58 L Glucose 101 POC Capillary Glucose 102 Calcium 8.2 L Total Bilirubin 0.5 AST 27 ALT 13 Alkaline Phosphatase 112 Total Protein 7.0 Albumin 3.4 L
--- NOTE | 2024-09-02 10:04 | PCPTNOTE ---
Patient refused treatment this session. Patient reported he feels he does not need physical therapy. Patient reported he has been doing everything on his own, other than getting help with wound vac.
[2024-09-02 12:10] LABS: Glucose Point of Care 95 mg/dl (65-105)
[2024-09-02] MEDS: OXACILLIN SODIUM 2 GM in SODIUM CHLORIDE 0.9% IV 100 ML IVPB ×3 (13:15→21:56)
[2024-09-02 14:00] VITALS: BP 150/95; PULSE 94; RESP 16; TEMP 36.6; O2SAT 100
[2024-09-02 17:25] LABS: Glucose Point of Care 119 mg/dl (65-105)
[2024-09-02 20:25] VITALS: PULSE 94; RESP 16; O2SAT 100
[2024-09-02 20:50] LABS: Glucose Point of Care 113 mg/dl (65-105)
[2024-09-02 21:17] VITALS: BP 149/90; PULSE 90; RESP 16; TEMP 36.6; O2SAT 99
[2024-09-03] MEDS: OXACILLIN SODIUM 2 GM in SODIUM CHLORIDE 0.9% IV 100 ML IVPB ×6 (00:21→20:09)
[2024-09-03] MEDS: CENTRAL LINE FLUSH 10 ML IV PUSH ×3 (05:15→21:03)
[2024-09-03 06:00] VITALS: BP 142/92; PULSE 92; RESP 16; TEMP 36.6; O2SAT 100
[2024-09-03 06:21] LABS: Basophils Percent Auto 0.4 % (0.2-1.2); Eosinophils Absolute Auto 0.2 K/mm3 (0-0.3); Eosinophils Percent Auto 2.8 % (0-4.4); Hemoglobin 9.1 g/dL (14.0-18.0); Immature Granulocyte Absolute 0.03 K/mm3 (0.00-0.031); Immature Granulocyte Percent A 0.6 % (0-0.5); Lymphocytes Absolute Auto 1.71 K/mm3 (0.9-3.2); Lymphocytes Percent Auto 31.8 % (18.3-44.2); Mean Corpuscular HGB Conc 31.4 g/dl (32-36); Mean Corpuscular Hemoglobin 25.9 pg (26-34); Mean Corpuscular Volume 82.4 fl (80-100); Mean Platelet Volume 8.9 fl (7.4-10.4); Monocytes Absolute Auto 0.5 K/mm3 (0.1-0.6); Monocytes Percent Auto 9.9 % (2.6-8.5); Neutrophils Absolute Auto 2.9 K/mm3 (1.3-6.7); Neutrophils Percent Auto 54.5 % (45.5-73.1); Platelet Count Result 341 k/mm3 (150-375); Red Blood Count 3.52 M/mm3 (4.6-6.20); Red Cell Distribution Width 14.4 % (11.5-14.5); White Blood Count 5.4 K/mm3 (4.5-10.0)
[2024-09-03 06:31] LABS: Alanine Aminotransferase 13 U/L (6-50); Albumin Level 3.4 g/dL (3.5-5.1); Alkaline Phosphatase 101 U/L (38-126); Anion Gap 2 mmol/L (4-12); Aspartate Amino Transferase 26 U/L (17-59); Bilirubin,Total 0.5 mg/dL (0.2-1.3); Blood Urea Nitrogen 12 mg/dL (9-20); Calcium 8.1 mg/dL (8.4-10.2); Carbon Dioxide 30 mmol/L (22-30); Chloride 106 mmol/L (98-107); Estimated CRCL calculation 83 ml/min; Estimated Glomerular Filt Rate > 60; Glucose 93 mg/dL (65-110); Potassium 3.5 mmol/L (3.4-5.0); Sodium 138 mmol/L (137-145)
[2024-09-03 08:11] LABS: Glucose Point of Care 90 mg/dl (65-105)
[2024-09-03 08:27] VITALS: O2SAT 99
[2024-09-03] MEDS: hydroCHLOROthiazide 12.5 MG CAPSULE PO (08:27)
[2024-09-03] MEDS: LOSARTAN POTASSIUM 50 MG TABLET PO (08:27)
[2024-09-03] MEDS: metFORMIN HCL XR 500 MG TAB.SR.24H PO ×2 (08:27→16:49)
--- NOTE | 2024-09-03 08:33 | PCNWS ---
Weekly nutritional screen. Patient is tolerating current diet with adequate intake. No weight loss reported. No nutritional needs at this time.
--- NOTE | 2024-09-03 09:39 | P.PNOP_ITS ---
Progress Note: A&P Assessment and Plan (1) Osteomyelitis of right foot: Qualifiers: Osteomyelitis type: other acute Qualified Code(s): M86.171 - Other acute osteomyelitis, right ankle and foot Code(s): M86.9 - Osteomyelitis, unspecified Status: Acute Assessment and Plan: POD #11: Debridement right ankle and foot. Wound VAC in place. Wound VAC dressing change today. Culture showing pansensitive Staph. Blood cultures most recent negative to date. Previous discussion of salvage of the foot versus amputation. He has declined amputation at this time. He would like to try to salvage the foot. Reviewed length of time that would be involved and the necessary steps including possible further surgeries in the future. PICC line long-term antibiotics. Plan to continue wound VAC. Fracture boot when OOB. Will follow in Wound Clinic. 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 Time Spent With Patient Time with patient: less than 15 minutes Subjective Subjective Date/Time Seen: 09/03/24 09:39 Post Op day: 11 Principal diagnosis: Right foot osteomyelitis with septic arthritis Interval history: POD #11: I&D of the right ankle and subtalar joint with application wound VAC. Patient without new complaints. Improvement in pain with the ROM of the right foot/ankle. Wound VAC in place. PICC line in place. Awaiting insurance authorization. Review of Systems Review of Systems: All systems reviewed & are unremarkable except as noted in HPI and below Exam Const: General: alert and awake Orientation/consciousness: patient oriented x3 Limitations: no limitations HENMT: Head: normal to inspection Neck: Neck: normal visual inspection Extrem: Right lower extremity: ankle Details: tenderness Location: of the lateral malleolus and of the medial malleolus, swelling Details: laterally and posteriorly, abnormal ROM Details: pain with active ROM Details: with plantar flexion and with dorsiflexion and pain with passive ROM Details: with plantar flexion and with dorsiflexion, warmth and other (redness, laterally ); no ecchymosis and foot ( 2nd toe amputation) Details: abnormal to inspection, vascular exam Details: abnormal capillary refill Location: of all toes; dorsalis pedis pulse absent and posterior tibial pulse absent and motor-sensory exam D etails: light-touch abnormal; abnormal capillary refill Other: Wound on the dorsal lateral aspect of the right foot with wound VAC in place. Erythema to the right lateral ankle significantly improved. Additional wound at the side of the 2nd toe amputation improved. No malodor. Wound VAC dressing to be changed MWF. Psych: Mental Status: mental status grossly normal Objective Data Vital Signs Vital Signs: Vital Signs - 24 hr 09/02/24 14:00 09/02/24 20:25 09/02/24 21:17 Temperature 36.6 C 36.6 C Pulse Rate 94 94 90 Respiratory Rate 16 16 16 Blood Pressure 150/95 H 149/90 H Pulse Oximetry 100 100 99 Oxygen Delivery Room Air 09/03/24 06:00 Temperature 36.6 C Pulse Rate 92 Respiratory Rate 16 Blood Pressure 142/92 H Pulse Oximetry 100 Oxygen Delivery Intake/Output Intake/Output: Intake & Output 08/31/24 09/01/24 09/02/24 09/03/24 23:59 23:59 23:59 23:59 Intake Total 990 1220 1520 770 Output Total 500 Balance 777 886 1819 770 Meds/Results Medications: Active Medications Generic Name Dose Route Start Last Admin Trade Name Freq PRN Reason Stop Dose Admin Acetaminophen 650 mg 08/20/24 12:16 08/23/24 15:50 Acetaminophen 325 Mg Tablet PO 650 mg Q4H PRN Administration Mild Pain (1-3) or Fever Calcium Carbonate 200 mg 08/25/24 06:17 Calcium Carbonate (Tums) 500 Mg (200 Mg Elemental) PO Q6H PRN Indigestion Dextrose 12.5 gm 08/25/24 12:46 Dextrose 50% 25 Gm/50 Ml Syringe IV PUSH PRN PRN Hypoglycemia Protocol Glucagon 1 mg 08/25/24 12:46 Glucagon For Inj 1 Mg Vial IM PRN PRN Hypoglycemia Protocol Glucose 15 gm 08/25/24 12:46 Glucose Oral Gel 15 Gm Of Glucse In 37.5 Gm Tube PO PRN PRN Hypoglycemia Protocol Hydrochlorothiazide 12.5 mg 08/22/24 09:00 09/03/24 08:27 Hydrochlorothiazide 12.5 Mg Capsule PO 12.5 mg DAILY ARLEEN Administration Dextrose 1,000 mls @ 100 mls/hr 08/25/24 12:46 Dextrose 5% 1,000 Ml IVPB PRN PRN Hypoglycemia Protocol Oxacillin Sodium 2 gm/ Sodium 100 mls @ 200 mls/hr 09/02/24 13:00 09/03/24 08:27 Chloride IVPB 10/06/24 23:59 200 mls/hr Q4HR ARLEEN Administration Insulin Aspart 4 - 8 units 08/25/24 17:00 09/03/24 08:31 Insulin Aspart (*Bkc) 100 Units/Ml SUB-Q Not Given TIDWM [facility] Protocol Insulin Glargine 21 units 08/20/24 21:00 09/02/24 20:48 Insulin Glargine (*Bkc) 100 Units/Ml 0.2 units/kg (21 units) Not Given SUB-Q HS [facility] Insulin Human Isoph/Insulin Regular 15 units 08/23/24 17:00 09/03/24 08:34 Insulin Human Isophan/Regular 70/30 (*Bkc) 100 Units/Ml SUB-Q Not Given BIDWM [facility] Losartan Potassium 50 mg 08/22/24 09:00 09/03/24 08:27 Losartan Potassium 50 Mg Tablet PO 50 mg DAILY ARLEEN Administration Metformin HCl 500 mg 08/23/24 17:00 09/03/24 08:27 Metformin Hcl Xr 500 Mg Tab.Sr.24h PO 500 mg BID ARLEEN Administration Ondansetron HCl 4 mg 08/20/24 17:21 08/23/24 12:29 Ondansetron Inj 4 Mg/2 Ml Vial IV PUSH 4 mg Q6H PRN Administration Nausea And Vomiting Ondansetron HCl 4 mg 08/23/24 11:50 Ondansetron Inj 4 Mg/2 Ml Vial IV PUSH ONCE PRN Nausea Sodium Chloride 10 ml 08/28/24 14:00 09/03/24 05:15 Central Line Flush IV PUSH 10 ml Q8HR ARLEEN Administration Sodium Chloride 10 ml 08/28/24 10:38 Central Line Flush IV PUSH PRN PRN with TPN bag changes Sodium Chloride 20 ml 08/28/24 10:38 08/30/24 08:06 Central Line Flush IV PUSH 20 ml PRN PRN Administration after blood draws Radiology Results: ITS Impressions Ankle MRI 08/21/24 08:41 IMPRESSION: 1. Likely septic arthritis at the ankle and subtalar joints with draining sinus tract draining from the anterior subtalar joint/sinus Tarsi to the dorsolateral hindfoot. 2. Associated osteomyelitis most prominent at the anterior process of the calcaneus also involving portions of the talus as detailed above. 3. Overlying myositis involving the intrinsic musculature at the dorsal midfoot with suggestion of tendinopathy and likely at least partial tears of the more superficial extensor digitorum longus tendons to the fifth and possibly fourth toes. 4. Complete tear and proximal retraction of the extensor hallucis longus and anterior tibial tendons, the former with likely associated septic tenosynovitis. 5. Chronic amputation of the second toe with suspicion for osteomyelitis at the distal diaphysis of the second metatarsal. 6. 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 7. Old healed fractures at the necks of the third and fourth metatarsals. Foot MRI 08/21/24 08:41 IMPRESSION: 1. Likely septic arthritis at the ankle and subtalar joints with draining sinus tract draining from the anterior subtalar joint/sinus Tarsi to the dorsolateral hindfoot. 2. Associated osteomyelitis most prominent at the anterior process of the calcaneus also involving portions of the talus as detailed above. 3. Overlying myositis involving the intrinsic musculature at the dorsal midfoot with suggestion of tendinopathy and likely at least partial tears of the more superficial extensor digitorum longus tendons to the fifth and possibly fourth t oes. 4. Complete tear and proximal retraction of the extensor hallucis longus and anterior tibial tendons, the former with likely associated septic tenosynovitis. 5. Chronic amputation of the second toe with suspicion for osteomyelitis at the distal diaphysis of the second metatarsal. 6. 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 7. Old healed fractures at the necks of the third and fourth metatarsals. Chest X-Ray 08/28/24 09:58 IMPRESSION: No acute cardiopulmonary pathology. Labs Labs: Laboratory Results - last 24 hr 09/02/24 09/02/24 09/02/24 11:44 16:49 20:41 WBC RBC Hgb Hct MCV MCH MCHC RDW Plt Count MPV Immature Gran % (Auto) Neut % (Auto) Lymph % (Auto) [place] % (Auto) Eos % (Auto) Baso % (Auto) Lymph # (Auto) [place] # (Auto) Eos # (Auto) Baso # (Auto) Abs Immat Gran (auto) Absolute Neuts (auto) Absolute Nucleated RBC Nucleated RBC % Sodium Potassium Chloride Carbon Dioxide Anion Gap BUN Creatinine Estim Creat Clear Calc Estimated GFR Glucose POC Capillary Glucose 95 119 H 113 H Calcium Total Bilirubin AST ALT Alkaline Phosphatase Total Protein Albumin 09/03/24 09/03/24 06:09 08:02 WBC 5.4 RBC 3.52 L Hgb 9.1 L Hct 29.0 L MCV 82.4 MCH 25.9 L MCHC 31.4 L RDW 14.4 Plt Count 341 MPV 8.9 Immature Gran % (Auto) 0.6 H Neut % (Auto) 54.5 Lymph % (Auto) 31.8 [place] % (Auto) 9.9 H Eos % (Auto) 2.8 Baso % (Auto) 0.4 Lymph # (Auto) 1.71 [place] # (Auto) 0.5 Eos # (Auto) 0.2 Baso # (Auto) 0.0 Abs Immat Gran (auto) 0.03 Absolute Neuts (auto) 2.9 Absolute Nucleated RBC 0.000 Nucleated RBC % 0.0 Sodium 138 Potassium 3.5 Chloride 106 Carbon Dioxide 30 Anion Gap 2 L BUN 12 Creatinine 1.20 Estim Creat Clear Calc 83 Estimated GFR > 60 Glucose 93 POC Capillary Glucose 90 Calcium 8.1 L Total Bilirubin 0.5 AST 26 ALT 13 Alkaline Phosphatase 101 Total Protein 7.0 Albumin 3.4 L
[2024-09-03 11:54] LABS: Glucose Point of Care 116 mg/dl (65-105)
--- NOTE | 2024-09-03 12:20 | P.PNIM_ITS ---
Progress Note: A&P Assessment and Plan (1) Osteomyelitis of right foot: Qualifiers: Osteomyelitis type: other acute Qualified Code(s): M86.171 - Other acute osteomyelitis, right ankle and foot Code(s): M86.9 - Osteomyelitis, unspecified Status: Acute Assessment and Plan: POD #11: Debridement right ankle and foot. Wound VAC in place. Wound VAC dressing change today. Culture showing pansensitive Staph. Blood cultures most recent negative to date. Previous discussion of salvage of the foot versus amputation. He has declined amputation at this time. He would like to try to salvage the foot. Reviewed length of time that would be involved and the necessary steps including possible further surgeries in the future. PICC line long-term antibiotics. Plan to continue wound VAC. Fracture boot when OOB. Orthopedics will follow in [facility]. 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 Mealtime insulin on hold until over 200 before meals (3) Septic arthritis of ankle and foot region: Code(s): M00.9 - Pyogenic arthritis, unspecified Status: Acute Assessment and Plan: s/p debridement with wound vac in place (4) Bacteremia: Code(s): R78.81 - Bacteremia Status: Acute Assessment and Plan: Plan for home IV abx with oxacillin 12g over 24 hours for 6 weeks from surgery pending insurance authorization (5) HTN (hypertension): Code(s): I10 - Essential (primary) hypertension Status: Acute Assessment and Plan: Chronic, continue home medications (6) GERD (gastroesophageal reflux disease): Qualifiers: Esophagitis presence: esophagitis presence not specified Qualified Code(s): K21.9 - Gastro-esophageal reflux disease without esophagitis Code(s): K21.9 - Gastro-esophageal reflux disease without esophagitis Status: Acute Assessment and Plan: Continue Famotidine 20 mg PO daily. (7) Hypokalemia: Code(s): E87.6 - Hypokalemia Status: Acute Assessment and Plan: Daily BMP Replace as needed Plan Discharge with home infusions and wound vac once approved by insurance. Time Spent With Patient Time with patient: 25 - 35 minutes Subjective Date/time seen: 09/03/24 12:20 Interval history: Patient waiting on insurance authorization for IV antibiotics, oxacillin 12 g over 24 hour infusion for 6 weeks from time of surgery. Wound vac covered but IV abx not yet approved. Patient using walking boot when ambulatory, really does not want to still be in the hospital. Review of Systems Review of Systems: All systems reviewed & are unremarkable except as noted in HPI and below Exam Const: General: alert and awake Orientation/consciousness: patient oriented x3 Limitations: no limitations HENMT: Head: normal to inspection Neck: Neck: normal visual inspection Extrem: Right lower extremity: ankle Details: tenderness Location: of the lateral malleolus and of the medial malleolus, swelling Details: laterally and posteriorly, abnormal ROM Details: pain with active ROM Details: with plantar flexion and with dorsiflexion and pain with passive ROM Details: with plantar flexion and with dorsiflexion, warmth and other (redness, laterally ); no ecchymosis Other: Wound on the dorsal lateral aspect of the right foot with wound VAC in place. Erythema to the right lateral ankle significantly improved. Additional wound at the side of the 2nd toe amputation improved. No malodor. Wound VAC dressing to be changed MWF. Psych: Mental Status: mental status grossly normal Objective Data Vital Signs Vital Signs: Vital Signs - 24 hr 09/02/24 14:00 09/02/24 20:25 09/02/24 21:17 Temperature 36.6 C 36.6 C Pulse Rate 94 94 90 Respiratory Rate 16 16 16 Blood Pressure 150/95 H 149/90 H Pulse Oximetry 100 100 99 Oxygen Delivery Room Air 09/03/24 06:00 09/03/24 08:27 Temperature 36.6 C Pulse Rate 92 Respiratory Rate 16 Blood Pressure 142/92 H Pulse Oximetry 100 99 Oxygen Delivery Room Air Intake/Output Intake/Output: Intake & Output 08/31/24 09/01/24 09/02/24 09/03/24 23:59 23:59 23:59 23:59 Intake Total 990 1220 1520 870 Output Total 500 Balance 235 919 5115 870 Meds/Results Medications: Active Medications Generic Name Dose Route Start Last Admin Trade Name Freq PRN Reason Stop Dose Admin Acetaminophen 650 mg 08/20/24 12:16 08/23/24 15:50 Acetaminophen 325 Mg Tablet PO 650 mg Q4H PRN Administration Mild Pain (1-3) or Fever Calcium Carbonate 200 mg 08/25/24 06:17 Calcium Carbonate (Tums) 500 Mg (200 Mg Elemental) PO Q6H PRN Indigestion Dextrose 12.5 gm 08/25/24 12:46 Dextrose 50% 25 Gm/50 Ml Syringe IV PUSH PRN PRN Hypoglycemia Protocol Glucagon 1 mg 08/25/24 12:46 Glucagon For Inj 1 Mg Vial IM PRN PRN Hypoglycemia Protocol Glucose 15 gm 08/25/24 12:46 Glucose Oral Gel 15 Gm Of Glucse In 37.5 Gm Tube PO PRN PRN Hypoglycemia Protocol Hydrochlorothiazide 12.5 mg 08/22/24 09:00 09/03/24 08:27 Hydrochlorothiazide 12.5 Mg Capsule PO 12.5 mg DAILY [facility] Administration Dextrose 1,000 mls @ 100 mls/hr 08/25/24 12:46 Dextrose 5% 1,000 Ml IVPB PRN PRN Hypoglycemia Protocol Oxacillin Sodium 2 gm/ Sodium 100 mls @ 200 mls/hr 09/02/24 13:00 09/03/24 08:57 Chloride IVPB 10/06/24 23:59 Infused Q4HR [facility] Infusion Insulin Aspart 4 - 8 units 08/25/24 17:00 09/03/24 08:31 Insulin Aspart (*Bkc) 100 Units/Ml SUB-Q Not Given TIDWM [facility] Protocol Insulin Glargine 21 units 08/20/24 21:00 09/02/24 20:48 Insulin Glargine (*Bkc) 100 Units/Ml 0.2 units/kg (21 units) Not Given SUB-Q [facility] Insulin Human Isoph/Insulin Regular 15 units 08/23/24 17:00 09/03/24 08:34 Insulin Human Isophan/Regular 70/30 (*Bkc) 100 Units/Ml SUB-Q Not Given BIDWM [facility] Losartan Potassium 50 mg 08/22/24 09:00 09/03/24 08:27 Losartan Potassium 50 Mg Tablet PO 50 mg DAILY ARLEEN Administration Metformin HCl 500 mg 08/23/24 17:00 09/03/24 08:27 Metformin Hcl Xr 500 Mg Tab.Sr.24h PO 500 mg BID ARLEEN Administration Ondansetron HCl 4 mg 08/20/24 17:21 08/23/24 12:29 Ondansetron Inj 4 Mg/2 Ml Vial IV PUSH 4 mg Q6H PRN Administration Nausea And Vomiting Ondansetron HCl 4 mg 08/23/24 11:50 Ondansetron Inj 4 Mg/2 Ml Vial IV PUSH ONCE PRN Nausea Sodium Chloride 10 ml 08/28/24 14:00 09/03/24 05:15 Central Line Flush IV PUSH 10 ml Q8HR ARLEEN Administration Sodium Chloride 10 ml 08/28/24 10:38 Central Line Flush IV PUSH PRN PRN with TPN bag changes Sodium Chloride 20 ml 08/28/24 10:38 08/30/24 08:06 Central Line Flush IV PUSH 20 ml PRN PRN Administration after blood draws Radiology Results: ITS Impressions Ankle MRI 08/21/24 08:41 IMPRESSION: 1. Likely septic arthritis at the ankle and subtalar joints with draining sinus tract draining from the anterior subtalar joint/sinus Tarsi to the dorsolateral hindfoot. 2. Associated osteomyelitis most prominent at the anterior process of the calcaneus also involving portions of the talus as detailed above. 3. Overlying myositis involving the intrinsic musculature at the dorsal midfoot with suggestion of tendinopathy and likely at least partial tears of the more superficial extensor digitorum longus tendons to the fifth and possibly fourth toes. 4. Complete tear and proximal retraction of the extensor hallucis longus and anterior tibial tendons, the former with likely associated septic tenosynovitis. 5. Chronic amputation of the second toe with suspicion for osteomyelitis at the distal diaphysis of the second metatarsal. 6. 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 7. Old healed fractures at the necks of the third and fourth metatarsals. Foot MRI 08/21/24 08:41 IMPRESSION: 1. Likely septic arthritis at the ankle and subtalar joints with draining sinus tract draining from the anterior subtalar joint/sinus Tarsi to the dorsolateral hindfoot. 2. Associated osteomyelitis most prominent at the anterior process of the calcaneus also involving portions of the talus as detailed above. 3. Overlying myositis involving the intrinsic musculature at the dorsal midfoot with suggestion of tendinopathy and likely at least partial tears of the more superficial extensor digitorum longus tendons to the fifth and possibly fourth toes. 4. Complete tear and proximal retraction of the extensor hallucis longus and anterior tibial tendons, the former with likely associated septic tenosynovitis. 5. Chronic amputation of the second toe with suspicion for osteomyelitis at the distal diaphysis of the second metatarsal. 6. 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 7. Old healed fractures at the necks of the third and fourth metatarsals. Chest X-Ray 08/28/24 09:58 IMPRESSION: No acute cardiopulmonary pathology. Labs Labs: Laboratory Results - last 24 hr 09/02/24 09/02/24 09/03/24 16:49 20:41 06:09 WBC 5.4 RBC 3.52 L Hgb 9.1 L Hct 29.0 L MCV 82.4 MCH 25.9 L MCHC 31.4 L RDW 14.4 Plt Count 341 MPV 8.9 Immature Gran % (Auto) 0.6 H Neut % (Auto) 54.5 Lymph % (Auto) 31.8 [place] % (Auto) 9.9 H Eos % (Auto) 2.8 Baso % (Auto) 0.4 Lymph # (Auto) 1.71 [place] # (Auto) 0.5 Eos # (Auto) 0.2 Baso # (Auto) 0.0 Abs Immat Gran (auto) 0.03 Absolute Neuts (auto) 2.9 Absolute Nucleated RBC 0.000 Nucleated RBC % 0.0 Sodium 138 Potassium 3.5 Chloride 106 Carbon Dioxide 30 Anion Gap 2 L BUN 12 Creatinine 1.20 Estim Creat Clear Calc 83 Estimated GFR > 60 Glucose 93 POC Capillary Glucose 119 H 113 H Calcium 8.1 L Total Bilirubin 0.5 AST 26 ALT 13 Alkaline Phosphatase 101 Total Protein 7.0 Albumin 3.4 L 09/03/24 09/03/24 08:02 11:47 WBC RBC Hgb Hct MCV MCH MCHC RDW Plt Count MPV Immature Gran % (Auto) Neut % (Auto) Lymph % (Auto) [place] % (Auto) Eos % (Auto) Baso % (Auto) Lymph # (Auto) [place] # (Auto) Eos # (Auto) Baso # (Auto) Abs Immat Gran (auto) Absolute Neuts (auto) Absolute Nucleated RBC Nucleated RBC % Sodium Potassium Chloride Carbon Dioxide Anion Gap BUN Creatinine Estim Creat Clear Calc Estimated GFR Glucose POC Capillary Glucose 90 116 H Calcium Total Bilirubin AST ALT Alkaline Phosphatase Total Protein Albumin Pulse Oximetry SpO2 results: 99-100% on room air Attestation: I personally reviewed and interpreted this pulse oximetry as follows: Interpretation: No need for supplemental oxygenation at this time Quality VTE Prophylaxis VTE prophylaxis: mechanical ordered Hospitalist [facility] Advance Care Plan I have confirmed that the patient's Advanced Care Plan is present, code status is documented, or surrogate decision maker is listed in patient medical record.: Yes Medication Reconciliation I have utilized all available resources to obtain, update and review the patients current medications (includes all prescriptions, OTC, herbals, cannabis, and nutritional supplements).: Yes
[2024-09-03 14:00] VITALS: BP 145/79; PULSE 95; RESP 19; TEMP 37.2; O2SAT 100
[2024-09-03 17:07] LABS: Glucose Point of Care 125 mg/dl (65-105)
[2024-09-03 20:10] VITALS: PULSE 95; RESP 19; O2SAT 100
[2024-09-03 20:41] LABS: Glucose Point of Care 187 mg/dl (65-105)
[2024-09-03] MEDS: INSULIN GLARGINE (*BKC) 100 UNITS/ML 21 UNITS SUB-Q (21:03)
[2024-09-03 22:00] VITALS: BP 129/89; PULSE 93; RESP 12; TEMP 37; O2SAT 97
[2024-09-04] MEDS: OXACILLIN SODIUM 2 GM in SODIUM CHLORIDE 0.9% IV 100 ML IVPB ×4 (01:05→12:02)
[2024-09-04 05:40] VITALS: BP 140/89; PULSE 92; RESP 12; TEMP 36.8; O2SAT 99
[2024-09-04] MEDS: CENTRAL LINE FLUSH 10 ML IV PUSH (05:46)
[2024-09-04 05:54] LABS: Basophils Percent Auto 0.4 % (0.2-1.2); Eosinophils Absolute Auto 0.2 K/mm3 (0-0.3); Eosinophils Percent Auto 3.4 % (0-4.4); Hematocrit 29.6 % (42.0-52.0); Hemoglobin 9.4 g/dL (14.0-18.0); Immature Granulocyte Absolute 0.02 K/mm3 (0.00-0.031); Immature Granulocyte Percent A 0.4 % (0-0.5); Lymphocytes Absolute Auto 1.52 K/mm3 (0.9-3.2); Lymphocytes Percent Auto 28.5 % (18.3-44.2); Mean Corpuscular HGB Conc 31.8 g/dl (32-36); Mean Corpuscular Hemoglobin 26.1 pg (26-34); Mean Corpuscular Volume 82.2 fl (80-100); Mean Platelet Volume 9.2 fl (7.4-10.4); Monocytes Absolute Auto 0.6 K/mm3 (0.1-0.6); Monocytes Percent Auto 11.6 % (2.6-8.5); Neutrophils Percent Auto 55.7 % (45.5-73.1); Platelet Count Result 322 k/mm3 (150-375); Red Cell Distribution Width 14.4 % (11.5-14.5); White Blood Count 5.3 K/mm3 (4.5-10.0)
[2024-09-04 06:04] LABS: Alanine Aminotransferase 13 U/L (6-50); Albumin Level 3.4 g/dL (3.5-5.1); Alkaline Phosphatase 97 U/L (38-126); Anion Gap 4 mmol/L (4-12); Aspartate Amino Transferase 22 U/L (17-59); Bilirubin,Total 0.5 mg/dL (0.2-1.3); Blood Urea Nitrogen 12 mg/dL (9-20); Calcium 8.3 mg/dL (8.4-10.2); Carbon Dioxide 30 mmol/L (22-30); Chloride 105 mmol/L (98-107); Estimated CRCL calculation 83 ml/min; Estimated Glomerular Filt Rate > 60; Glucose 106 mg/dL (65-110); Potassium 3.5 mmol/L (3.4-5.0); Sodium 139 mmol/L (137-145)
[2024-09-04] MEDS: hydroCHLOROthiazide 12.5 MG CAPSULE PO (08:05)
[2024-09-04] MEDS: metFORMIN HCL XR 500 MG TAB.SR.24H PO (08:05)
[2024-09-04] MEDS: LOSARTAN POTASSIUM 50 MG TABLET PO (08:05)
[2024-09-04 08:32] LABS: Glucose Point of Care 102 mg/dl (65-105)
--- NOTE | 2024-09-04 09:12 | PM.PNORT ---
Progress Note: A&P Assessment and Plan (1) Osteomyelitis of right foot: Qualifiers: Osteomyelitis type: other acute Qualified Code(s): M86.171 - Other acute osteomyelitis, right ankle and foot Code(s): M86.9 - Osteomyelitis, unspecified Status: Acute Assessment and Plan: POD #12: Debridement right ankle and foot. Wound VAC in place. Wound VAC dressing change today. Culture showing pansensitive Staph. Blood cultures most recent negative. PICC line long-term antibiotics. Plan to continue wound VAC. Dressing change Monday. Fracture boot when OOB. Will follow in Wound Clinic. 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 Time Spent With Patient Time with patient: less than 15 minutes Subjective Subjective Date/Time Seen: 09/04/24 09:12 Post Op day: 12 Principal diagnosis: Right foot osteomyelitis with septic arthritis Interval history: POD #12: I&D of the right ankle and subtalar joint with application wound VAC. Patient without new complaints. Improvement in pain right foot/ankle. Wound VAC in place. PICC line in place. Awaiting insurance authorization. Exam Const: General: alert and awake Orientation/consciousness: patient oriented x3 Limitations: no limitations Extrem: Right lower extremity: ankle Details: tenderness Location: of the lateral malleolus and of the medial malleolus, swelling Details: laterally and posteriorly, abnormal ROM Details: pain with active ROM Details: with plantar flexion and with dorsiflexion and pain with passive ROM Details: with plantar flexion and with dorsiflexion, warmth and other (redness, laterally ); no ecchymosis and foot ( 2nd toe amputation) Details: abnormal to inspection, vascular exam Details: abnormal capillary refill Location: of all toes; dorsalis pedis pulse absent and posterior tibial pulse absent and motor-sensory exam Details: light-touch abnormal; abnormal capillary refill Other: Wound on the dorsal lateral aspect of the right foot with wound VAC in place. Wound VAC dressing removed today. Erythema to the right lateral ankle significantly improved. Additional wound at the side of the 2nd toe amputation improved. No malodor. Wound depth 2.9 cm at the sinus tarsi. Minimal serous drainage. Remainder of wound with 90% granulation tissue. Some slough noticed at the distal fibula which is improved. Wound VAC dressing to be changed MWF. Psych: Mental Status: mental status grossly normal Objective Data Vital Signs Vital Signs: Vital Signs - 24 hr 09/03/24 14:00 09/03/24 20:10 09/03/24 22:00 Temperature 98.9 F 98.6 F Pulse Rate 95 95 93 Respiratory Rate 19 19 12 Blood Pressure 145/79 H 129/89 Pulse Oximetry 100 100 97 Oxygen Delivery Room Air 09/04/24 05:40 Temperature 98.2 F Pulse Rate 92 Respiratory Rate 12 Blood Pressure 140/89 Pulse Oximetry 99 Oxygen Delivery Intake/Output Intake/Output: Intake & Output 09/01/24 09/02/24 09/03/24 09/04/24 23:59 23:59 23:59 23:59 Intake Total 1220 1520 4132 575 Output Total 500 Balance 720 1520 4132 575 Meds/Results Medications: Active Medications Generic Name Dose Route Start Last Admin Trade Name Freq PRN Reason Stop Dose Admin Acetaminophen 650 mg 08/20/24 12:16 08/23/24 15:50 Acetaminophen 325 Mg Tablet PO 650 mg Q4H PRN Administration Mild Pain (1-3) or Fever Calcium Carbonate 200 mg 08/25/24 06:17 Calcium Carbonate (Tums) 500 Mg (200 Mg Elemental) PO Q6H PRN Indigestion Dextrose 12.5 gm 08/25/24 12:46 Dextrose 50% 25 Gm/50 Ml Syringe IV PUSH PRN PRN Hypoglycemia Protocol Glucagon 1 mg 08/25/24 12:46 Glucagon For Inj 1 Mg Vial IM PRN PRN Hypoglycemia Protocol Glucose 15 gm 08/25/24 12:46 Glucose Oral Gel 15 Gm Of Glucse In 37.5 Gm Tube PO PRN PRN Hypoglycemia Protocol Hydrochlorothiazide 12.5 mg 08/22/24 09:00 09/04/24 08:05 Hydrochlorothiazide 12.5 Mg Capsule PO 12.5 mg DAILY ARLEEN Administration Dextrose 1,000 mls @ 100 mls/hr 08/25/24 12:46 Dextrose 5% 1,000 Ml IVPB PRN PRN Hypoglycemia Protocol Oxacillin Sodium 2 gm/ Sodium 100 mls @ 200 mls/hr 09/02/24 13:00 09/04/24 08:06 Chloride IVPB 10/06/24 23:59 200 mls/hr Q4HR ARLEEN Administration Insulin Aspart 4 - 8 units 08/25/24 17:00 09/04/24 08:11 Insulin Aspart (*Bkc) 100 Units/Ml SUB-Q Not Given TIDWM [facility] Protocol Insulin Glargine 21 units 08/20/24 21:00 09/03/24 21:03 Insulin Glargine (*Bkc) 100 Units/Ml 0.2 units/kg (21 units) 21 units SUB-Q Administration [facility] Insulin Human Isoph/Insulin Regular 15 units 08/23/24 17:00 09/03/24 08:34 Insulin Human Isophan/Regular 70/30 (*Bkc) 100 Units/Ml SUB-Q Not Given BIDWM [facility] Losartan Potassium 50 mg 08/22/24 09:00 09/04/24 08:05 Losartan Potassium 50 Mg Tablet PO 50 mg DAILY ARLEEN Administration Metformin HCl 500 mg 08/23/24 17:00 09/04/24 08:05 Metformin Hcl Xr 500 Mg Tab.Sr.24h PO 500 mg BID ARLEEN Administration Ondansetron HCl 4 mg 08/20/24 17:21 08/23/24 12:29 Ondansetron Inj 4 Mg/2 Ml Vial IV PUSH 4 mg Q6H PRN Administration Nausea And Vomiting Ondansetron HCl 4 mg 08/23/24 11:50 Ondansetron Inj 4 Mg/2 Ml Vial IV PUSH ONCE PRN Nausea Sodium Chloride 10 ml 08/28/24 14:00 09/04/24 05:46 Central Line Flush IV PUSH 10 ml Q8HR ARLEEN Administration Sodium Chloride 10 ml 08/28/24 10:38 Central Line Flush IV PUSH PRN PRN with TPN bag changes Sodium Chloride 20 ml 08/28/24 10:38 08/30/24 08:06 Central Line Flush IV PUSH 20 ml PRN PRN Administration after blood draws Radiology Results: ITS Impressions Ankle MRI 08/21/24 08:41 IMPRESSION: 1. Likely septic arthritis at the ankle and subtalar joints with draining sinus tract draining from the anterior subtalar joint/sinus Tarsi to the dorsolateral hindfoot. 2. Associated osteomyelitis most prominent at the anterior process of the calcaneus also involving portions of the talus as detailed above. 3. Overlying myositis involving the intrinsic musculature at the dorsal midfoot with suggestion of tendinopathy and likely at least partial tears of the more superficial extensor digitorum longus tendons to the fifth and possibly fourth toes. 4. Complete tear and proximal retraction of the extensor hallucis longus and anterior tibial tendons, the former with likely associated septic tenosynovitis. 5. Chronic amputation of the second toe with suspicion for osteomyelitis at the distal diaphysis of the second metatarsal. 6. 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 7. Old healed fractures at the necks of the third and fourth metatarsals. Foot MRI 08/21/24 08:41 IMPRESSION: 1. Likely septic arthritis at the ankle and subtalar joints with draining sinus tract draining from the anterior subtalar joint/sinus Tarsi to the dorsolateral hindfoot. 2. Associated osteomyelitis most prominent at the anterior process of the calcaneus also involving portions of the talus as detailed above. 3. Overlying myositis involving the intrinsic musculature at the dorsal midfoot with suggestion of tendinopathy and likely at least partial tears of the more superficial extensor digitorum longus tendons to the fifth and possibly fourth toes. 4. Complete tear and proximal retraction of the extensor hallucis longus and anterior tibial tendons, the former with likely associated septic tenosynovitis. 5. Chronic amputation of the second toe with suspicion for osteomyelitis at the distal diaphysis of the second metatarsal. 6. 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 7. Old healed fractures at the necks of the third and fourth metatarsals. Chest X-Ray 08/28/24 09:58 IMPRESSION: No acute cardiopulmonary pathology. Labs Labs: Laboratory Results - last 24 hr 09/03/24 09/03/24 09/03/24 11:47 17:00 20:15 WBC RBC Hgb Hct MCV MCH MCHC RDW Plt Count MPV Immature Gran % (Auto) Neut % (Auto) Lymph % (Auto) [place] % (Auto) Eos % (Auto) Baso % (Auto) Lymph # (Auto) [place] # (Auto) Eos # (Auto) Baso # (Auto) Abs Immat Gran (auto) Absolute Neuts (auto) Absolute Nucleated RBC Nucleated RBC % Sodium Potassium Chloride Carbon Dioxide Anion Gap BUN Creatinine Estim Creat Clear Calc Estimated GFR Glucose POC Capillary Glucose 116 H 125 H 187 H Calcium Total Bilirubin AST ALT Alkaline Phosphatase Total Protein Albumin 09/04/24 09/04/24 05:42 08:29 WBC 5.3 RBC 3.60 L Hgb 9.4 L Hct 29.6 L MCV 82.2 MCH 26.1 MCHC 31.8 L RDW 14.4 Plt Count 322 MPV 9.2 Immature Gran % (Auto) 0.4 Neut % (Auto) 55.7 Lymph % (Auto) 28.5 [place] % (Auto) 11.6 H Eos % (Auto) 3.4 Baso % (Auto) 0.4 Lymph # (Auto) 1.52 [place] # (Auto) 0.6 Eos # (Auto) 0.2 Baso # (Auto) 0.0 Abs Immat Gran (auto) 0.02 Absolute Neuts (auto) 3.0 Absolute Nucleated RBC 0.000 Nucleated RBC % 0.0 Sodium 139 Potassium 3.5 Chloride 105 Carbon Dioxide 30 Anion Gap 4 BUN 12 Creatinine 1.20 Estim Creat Clear Calc 83 Estimated GFR > 60 Glucose 106 POC Capillary Glucose 102 Calcium 8.3 L Total Bilirubin 0.5 AST 22 ALT 13 Alkaline Phosphatase 97 Total Protein 7.0 Albumin 3.4 L
--- NOTE | 2024-09-04 09:31 | P.DS_ITS ---
DS: Admitting Diagnosis Discharge Date 09/04/24 Admitting Diagnosis Bacteremia Acute right ankle pain Type 2 DM without complications FEMI Hypertension DS: Discharge Diagnosis Discharge Diagnosis (1) Osteomyelitis of right foot: Qualifiers: Osteomyelitis type: other acute Qualified Code(s): M86.171 - Other acute osteomyelitis, right ankle and foot Code(s): M86.9 - Osteomyelitis, unspecified Status: Acute (2) Type 2 diabetes mellitus, with long-term current use of insulin: Qualifiers: Diabetes mellitus complication detail: with polyneuropathy Diabetes mellitus complication status: with neurologic complications Qualified Code(s): E11.42 - Type 2 diabetes mellitus with diabetic polyneuropathy; Z79.4 - USP (current) use of insulin Code(s): E11.9 - Type 2 diabetes mellitus without complications; Z79.4 - tank terminal gauger (current) use of insulin Status: Acute (3) Septic arthritis of ankle and foot region: Code(s): M00.9 - Pyogenic arthritis, unspecified Status: Acute (4) Bacteremia: Code(s): R78.81 - Bacteremia Status: Acute (5) HTN (hypertension): Code(s): I10 - Essential (primary) hypertension Status: Acute (6) GERD (gastroesophageal reflux disease): Qualifiers: Esophagitis presence: esophagitis presence not specified Qualified Code(s): K21.9 - Gastro-esophageal reflux disease without esophagitis Code(s): K21.9 - Gastro-esophageal reflux disease without esophagitis Status: Acute (7) Hypokalemia: Code(s): E87.6 - Hypokalemia Status: Acute DS: Summary Hospital Course Reason for hospitalization: Bacteremia Acute right ankle pain Type 2 DM without complications FEMI Hypertension Hospital Course: this is a 48-year-old male who presented to the hospital on 08/20/2024 with complaints of foot pain. Patient was recently admitted for right foot infection and underwent right TMA of 2nd toe in June of this year. He was being followed up in the Wound Clinic since discharged. He returned to the ER on August 08 with right ankle pain. CT of the foot at that time showed soft tissue edema without fluid collection or gas within the soft tissue. Patient was discharged home with instructions for wound care however no antibiotics were ordered at that time. Blood and wound cultures were obtained that admission and were positive for MSSA. He was at his Orthopedics office whenever he was noted to have a worsening foot infection with findings of mm SA on his blood culture recently and was not fully treated. He came back this admission feeling on well, fever, chills with worsening Diabetic foot wound. workup in the hospital included MRI of the right ankle with and without contrast showed septic arthritis at the ankle and subtalar joints with draining sinus tract from the anterior subtalar joint sinus tarsi to the dorsal lateral hindfoot, Associated osteomyelitis most prominent at the anterior process of the calcaneus also involving portions of the talus as described above, overlying myositis involving the instrument sick musculature at the dorsal midfoot was suggestion of tendinopathy and likely at least partial tears of the more superficial extensive digitorum longus tendons in the 5th and possibly 4th toes, complete tear and proximal retraction of the extensor hallicus longus and anterior tibial tendon likely associated septic tenosynovitis, chronic amputation of the 2nd toe was suspicion for osteomyelitis at the distal 2nd metatarsal, chronic dorsal medial subluxation at the 1st MP joint with severe associated osteoarthritis, old healed fractures at the necks of the 3rd and 4th metatarsals. Right foot MRI showed likely septic arthritis of the ankle and subtalar joints with draining sinus tract draining from the anterior subtalar joint/sinus tarsi to the dorsal lateral hindfoot, associated osteomyelitis most prominent at the anterior process of the calcaneus also involving portions of the talus, overlying myositis involving the is transit musculature at the dorsal midfoot with suggestion of tendinopathy and likely at least partial tears of the more superficial extensor digitorum longus tendons to the 5th and possibly 4th toes, complete tear and proximal retraction of the extensor hallucis longus and anterior tibial tendons suggesting septic tenosynovitis, chronic amputation of the 2nd toe was suspicion for osteomyelitis at the 2nd metatarsal, chronic dorsal medial subluxation at the 1st MP joint with severe associated osteoarthritis, old healed fractures at the necks of the 3rd and 4th metatarsal. Chest x-ray was negative for any acute findings. Initial labs showed a white blood cell count of 11.8, RBC 4.50, hemoglobin 12.1, platelet count 481, ESR 61, creatinine 1.50, EGFR 50, blood sugars ranging 161-204, hemoglobin A1c 8.8, lactic acid 1.0, C reactive protein 23.6. Wound culture showing Staphylococcus aureus and group B Streptococcus isolated on final read, blood culture showing Staphylococcus aureus on 08/20/2024. Foot and ankle wound culture showing Staphylococcus aureus on final read. 08/26/2024 blood cultures were obtained and resulted no growth on final read. Patient was transition to oxacillin and will require 6 weeks worth of IV antibiotics with follow-up in the Wound Clinic. Patient is afebrile, vital signs are stable, he is currently on room air. He is stable for discharge at this time with home health for IV antibiotic infusions. Final diagnosis: Bacteremia, osteomyelitis of right foot, septic arthritis of ankle and foot Status at Discharge Cognitive/behavioral status at discharge: Alert and oriented x3 Functional status at discharge: independent ambulation Overall status at discharge: patient is progressing back to baseline Time Spent with Patient Time attestation: Total time spent providing and/or coordinating discharge services: Time spent: Greater than 30 minutes Exam Narrative: General: In no acute distress, well nourished Head: atraumatic, no encephalopathy Eyes: PERRLA, sclera clear ENT: moist mucous membranes, nasal passages clear Neck: supple, no JVD, no adenopathy, trachea midline Cardiac: Normal S1 and S2. RRR, No murmur, gallops or friction rubs, peripheral pulses intact. Respiratory: Lungs clear to auscultation, no adventitious lung sounds, currently on room air Gastrointestinal: soft, non-distended, non-tender, normoactive bowel sounds. : voiding without difficulty. Extremities: moves all extremities well Skin: wound on dorsal lateral aspect of right foot with dressing in place Neuro: Alert and oriented x4, cranial nerves intact, no neuro deficits. Psych: normal mood, normal affect, interactive DS: Data Data Completed and Pending Completed studies during hospitalization: Ankle MRI Foot MRI Chest X-ray Pending studies at discharge: None Labs on day of discharge: Labs from last 24 hours 09/04/24 09/04/24 09/03/24 08:29 05:42 20:15 WBC 5.3 RBC 3.60 L Hgb 9.4 L Hct 29.6 L MCV 82.2 MCH 26.1 MCHC 31.8 L RDW 14.4 Plt Count 322 MPV 9.2 Immature Gran % (Auto) 0.4 Neut % (Auto) 55.7 Lymph % (Auto) 28.5 Blair % (Auto) 11.6 H Eos % (Auto) 3.4 Baso % (Auto) 0.4 Lymph # (Auto) 1.52 Blair # (Auto) 0.6 Eos # (Auto) 0.2 Baso # (Auto) 0.0 Abs Immat Gran (auto) 0.02 Absolute Neuts (auto) 3.0 Absolute Nucleated RBC 0.000 Nucleated RBC % 0.0 Sodium 139 Potassium 3.5 Chloride 105 Carbon Dioxide 30 Anion Gap 4 BUN 12 Creatinine 1.20 Estim Creat Clear Calc 83 Estimated GFR > 60 Glucose 106 POC Capillary Glucose 102 187 H Calcium 8.3 L Total Bilirubin 0.5 AST 22 ALT 13 Alkaline Phosphatase 97 Total Protein 7.0 Albumin 3.4 L 09/03/24 09/03/24 17:00 11:47 WBC RBC Hgb Hct MCV MCH MCHC RDW Plt Count MPV Immature Gran % (Auto) Neut % (Auto) Lymph % (Auto) Blair % (Auto) Eos % (Auto) Baso % (Auto) Lymph # (Auto) Blair # (Auto) Eos # (Auto) Baso # (Auto) Abs Immat Gran (auto) Absolute Neuts (auto) Absolute Nucleated RBC Nucleated RBC % Sodium Potassium Chloride Carbon Dioxide Anion Gap BUN Creatinine Estim Creat Clear Calc Estimated GFR Glucose POC Capillary Glucose 125 H 116 H Calcium Total Bilirubin AST ALT Alkaline Phosphatase Total Protein Albumin Procedures/Treatments: Incision and drainage with irrigation and debridement of the right foot and ankle joint with wound VAC placement Discharge Plan Discharge Attending physician on discharge: Addy Alfaro Consulting providers: Benitez Reinoso; Hilda Naranjo Discharging Clinician: Arcelia Lorenzo Anticipated Discharge Date/Time: 09/04/24 09:29 Patient Disposition: Home Health Service Diet: as tolerated and diabetic Discharge Instructions: Discharge disposition: Patient was admitted to the hospital for osteomyelitis of the right foot with an associated blood infection Started on antibiotics and evaluated by ortho Underwent an incision&drainage of the right foot/ankle with wound vac placement on 08/[address] Reinoso Take medications as prescribed Monitor blood pressures Take caution while standing, rising, or moving Change positions slowly taking a break between each position change If you standing feel dizzy sit back down and take a break Encouraged to continue with yearly vaccinations Return to the emergency department if he developed sudden shortness of breath, chest pain, nausea, vomiting, upset stomach or intractable diarrhea Return to the emergency department if you develop fever greater than 101.5 Follow-up with the primary care physician within 1-2 weeks Thank you for choosing [facility] for your healthcare needs Wound Care Instructions: Wound Vac Therapy to the Right lateral ankle: Settings -150mmHg low continuous pressure, pack White foam into the tunnel, then cover with black foam. Dressing to be changed 3 times per week. Wound Care to Right 2nd toe amputation site: With each wound vac dressing change: apply a thin layer of Silver gel to the open wound, cover with a small strip of Mepilex Transfer, dry gauze and wrap the foot, place an ABD pad under the wound vac tubing at the ankle so tubing is off the floor. This dressing to be changed 3 times per week as well. Your follow up appointment at the [facility] will be on Friday September 13, 2024 at 8:30AM Continue Oxacillin antibiotic infusion for a total of 6 weeks. Care Coordination: Patient to have [facility] for PT/OT eval and treat, and long term. Their phone number is [phone]. Patient to have [facility] for IV Antibiotic and supplies. Their phone number is [phone]. Patient Instructions: Antibiotic Form, Osteomyelitis (DC), Negative Pressure Wound Therapy (DC) Patient Language: Georgian Stand Alone Forms: General Discharge Information Follow-up/Referrals: Akbar Ladd MD [Physician] - 09/13/24 8:30 am (At the [facility]) Janett,Zabrina Baer, COMMERCIAL ACCOUNT EXECUTIVE [Primary Care Provider] - 1 Week Discharge Medications: Continued losartan-hydrochlorothiazide 50-12.5 mg tablet 1 tablet PO DAILY Qty: 90 0RF Novolin 70/30 U-100 Insulin 100 unit/mL (70-30) suspension 15 unit SUBCUT BID metformin 500 mg tablet extended release 24 hr 500 mg PO BID Ozempic 0.25 mg or 0.5 mg (2 mg/3 mL) pen injector 0.25 mg SUBCUT WEEKLY Rx Instructions: MONDAY Date of admission: 08/20/24 12:16 Primary Care Provider: JanettZabrina Admitting Provider: Jean-Pierre Barreto Attending physician on admission: Arcelia Lorenzo Condition: Improved
[2024-09-04 12:01] LABS: Glucose Point of Care 128 mg/dl (65-105)
== END 2024-09-04 13:25 | disposition home health service (06) | DRG 313 ==
PROVIDERS: Nurse Practitioner Family; Orthopaedic Surgery; Student in an Organized Health Care Education/Training Program; Admitting Provider Internal Medicine; Visit Provider Nurse Practitioner Acute Care
PROC: 0S9F0ZZ Drainage of Right Ankle Joint, Open Approach (ICD-10-PCS; principal; 2024-08-23 10:30)
DX: E11.69 Type 2 diabetes mellitus with other specified complication (principal); M86.9 Osteomyelitis, unspecified; M00.9 Pyogenic arthritis, unspecified; R78.81 Bacteremia; E11.42 Type 2 diabetes mellitus with diabetic polyneuropathy; B95.61 Methicillin susceptible Staphylococcus aureus infection as the cause of diseases classified elsewhere; I10 Essential (primary) hypertension; K21.9 Gastro-esophageal reflux disease without esophagitis; R11.0 Nausea; H40.9 Unspecified glaucoma; G47.33 Obstructive sleep apnea (adult) (pediatric); Z79.4 Long term (current) use of insulin; Z89.421 Acquired absence of other right toe(s)
CPT/HCPCS: 36415; 36569; 73720; 73723; 80048; 80053; 80202; 82565; 82948; 83036; 83605; 83735; 85025; 85652; 86140; 87040; 87070; 87075; 87077; 87081; 87181; 87205; 93306; 97161; 97165; 97530; A9270; A9577; J0690; J0692; J1815; J2003; J2250; J2270; J2405; J2700; J2704; J3010; J3370; J7030; J7120

== ENCOUNTER 2024-09-16 13:06 | Outpatient (RCR) | payer OTHER, SELFPAY ==
[2024-09-09 16:47] LABS: Hematocrit 32.8 % (42.0-52.0); Hemoglobin 10.3 g/dL (14.0-18.0); Mean Corpuscular HGB Conc 31.4 g/dl (32-36); Mean Corpuscular Volume 82.8 fl (80-100); Platelet Count Result 322 k/mm3 (150-375); Red Blood Count 3.96 M/mm3 (4.6-6.20); Red Cell Distribution Width 14.9 % (11.5-14.5); White Blood Count 5.8 K/mm3 (4.5-10.0)
[2024-09-09 17:02] LABS: Alanine Aminotransferase 14 U/L (6-50); Albumin Level 3.7 g/dL (3.5-5.1); Alkaline Phosphatase 114 U/L (38-126); Anion Gap 7 mmol/L (4-12); Aspartate Amino Transferase 19 U/L (17-59); Bilirubin,Total 0.5 mg/dL (0.2-1.3); Blood Urea Nitrogen 13 mg/dL (9-20); Calcium 8.4 mg/dL (8.4-10.2); Carbon Dioxide 26 mmol/L (22-30); Chloride 108 mmol/L (98-107); Estimated Glomerular Filt Rate 58; Glucose 184 mg/dL (65-110); Sodium 141 mmol/L (137-145)
[2024-09-16 13:28] LABS: Hematocrit 33.5 % (42.0-52.0); Hemoglobin 10.3 g/dL (14.0-18.0); Mean Corpuscular HGB Conc 30.7 g/dl (32-36); Mean Corpuscular Hemoglobin 25.8 pg (26-34); Platelet Count Result 254 k/mm3 (150-375); Red Blood Count 3.99 M/mm3 (4.6-6.20); Red Cell Distribution Width 15.9 % (11.5-14.5); White Blood Count 6.1 K/mm3 (4.5-10.0)
[2024-09-16 13:49] LABS: Alanine Aminotransferase 26 U/L (6-50); Albumin Level 3.5 g/dL (3.5-5.1); Alkaline Phosphatase 107 U/L (38-126); Anion Gap 5 mmol/L (4-12); Aspartate Amino Transferase 25 U/L (17-59); Bilirubin,Total 0.5 mg/dL (0.2-1.3); Blood Urea Nitrogen 15 mg/dL (9-20); Calcium 8.7 mg/dL (8.4-10.2); Carbon Dioxide 26 mmol/L (22-30); Chloride 108 mmol/L (98-107); Estimated Glomerular Filt Rate 58; Glucose 204 mg/dL (65-110); Potassium 4.6 mmol/L (3.4-5.0); Sodium 139 mmol/L (137-145)
== END 2024-12-08 23:59 | disposition home or self-care (01) ==
LOC: HOME HLTH 13:06
DX: M00.9 Pyogenic arthritis, unspecified (principal); M86.171 Other acute osteomyelitis, right ankle and foot; E11.42 Type 2 diabetes mellitus with diabetic polyneuropathy
CPT/HCPCS: 80053; 85027

== ENCOUNTER 2024-10-10 14:46 | Outpatient (RCR) | payer OTHER, SELFPAY ==
[2024-09-24 11:00] LABS: Hematocrit 34.3 % (42.0-52.0); Mean Corpuscular HGB Conc 32.1 g/dl (32-36); Mean Corpuscular Hemoglobin 26.3 pg (26-34); Mean Corpuscular Volume 81.9 fl (80-100); Mean Platelet Volume 10.1 fl (7.4-10.4); Platelet Count Result 225 k/mm3 (150-375); Red Blood Count 4.19 M/mm3 (4.6-6.20); Red Cell Distribution Width 15.9 % (11.5-14.5); White Blood Count 7.7 K/mm3 (4.5-10.0)
[2024-09-24 11:21] LABS: Alanine Aminotransferase 20 U/L (6-50); Albumin Level 3.8 g/dL (3.5-5.1); Alkaline Phosphatase 98 U/L (38-126); Anion Gap 5 mmol/L (4-12); Aspartate Amino Transferase 19 U/L (17-59); Bilirubin,Total 0.8 mg/dL (0.2-1.3); Blood Urea Nitrogen 25 mg/dL (9-20); Calcium 8.8 mg/dL (8.4-10.2); Carbon Dioxide 25 mmol/L (22-30); Chloride 109 mmol/L (98-107); Estimated Glomerular Filt Rate 54; Glucose 101 mg/dL (65-110); Potassium 3.8 mmol/L (3.4-5.0); Sodium 139 mmol/L (137-145)
[2024-10-01 11:06] LABS: Hematocrit 34.1 % (42.0-52.0); Mean Corpuscular HGB Conc 32.3 g/dl (32-36); Mean Corpuscular Hemoglobin 26.3 pg (26-34); Mean Corpuscular Volume 81.6 fl (80-100); Mean Platelet Volume 9.5 fl (7.4-10.4); Platelet Count Result 320 k/mm3 (150-375); Red Blood Count 4.18 M/mm3 (4.6-6.20); Red Cell Distribution Width 15.4 % (11.5-14.5); White Blood Count 7.3 K/mm3 (4.5-10.0)
[2024-10-01 11:18] LABS: Alanine Aminotransferase 12 U/L (6-50); Albumin Level 3.5 g/dL (3.5-5.1); Alkaline Phosphatase 87 U/L (38-126); Anion Gap 4 mmol/L (4-12); Aspartate Amino Transferase 17 U/L (17-59); Bilirubin,Total 0.6 mg/dL (0.2-1.3); Blood Urea Nitrogen 27 mg/dL (9-20); Calcium 8.9 mg/dL (8.4-10.2); Carbon Dioxide 24 mmol/L (22-30); Chloride 109 mmol/L (98-107); Estimated Glomerular Filt Rate 58; Glucose 133 mg/dL (65-110); Potassium 4.1 mmol/L (3.4-5.0); Sodium 137 mmol/L (137-145)
--- OUTSIDE RECORDS SUMMARY | 2024-10-01 22:32 | XMS_ITS | Continuity of Care Document ---
Author Organization [place] [facility] Family [facility] Address [address] [place] [address] Assessment Encounter Date Assessment Date Assessment LastModified by Organization Details LastModified Time 09/10/2024 09/10/2024 The patient gave verbal consent using services and the consent is documented in the medical record prior to using the service. The patient has been informed of what a TeleMedicine visit is. Patient is located at . Provider is located at office. Names and roles of persons in addition to the patient and provider participating in telemedicine services include . The patient had a minute TeleMedicine consultation via [employer] to discuss the following: [email or web address] Not available 09/10/2024 15:30:11 Plan of Treatment Reminders Order Date Submit Date Provider Last Modified By Organization Details Last Modified Time Details Appointments None record ed. Lab None record ed. Referral None record ed. Procedures None record ed. Surgeries None record ed. Imaging None record ed. Medication Orders None record ed. Patient TargetsNo targets recorded. Patient Instructions Encounter Date Encounter Id Patient Instructions Last Modified By Organization Details Last Modified Time 09/10/2024 [id number] Due to the COVID-19 (Novel Coronavirus) pandemic, it is within this context (and with the understanding that this method of patient encounter is in the patient? s best interest as well as the health and safety of other patients and the public) that ? telehealth? is being provided for this patient encounter rather than a [id number] visit. This patient encounter is appropriate at this time. This patient has been advised of the potential risks and limitations of this mode of treatment (including, but not limited to, the absence of in-person examination) and has agreed to be treated in a remote fashion despite these risks. Any and all of the patient? s/patient? s family? s questions on this issue have been answered, and I have made no promises or guarantees to the patient. The patient has also been advised to contact this office for worsening conditions or problems, and seek emergency medical treatment and/or call 911 if the patient deems either necessary. HPI and/or vitals, if listed, were provided by the patient. [facility] Not available 09/10/2024 15:30:11 Reason for Referral None Reported. Results Created Date Observation Date Name Description Value Unit Range Abnormal Flag Note LastModifiedBy Organization Detail LastModifiedTime 08/21/2008/21/2024 MRI, ankle , w/ contr ast No observ ation record ed. [place] [id number] [facility] [address], [place], [address], 08/21/2024 11:37:26 08/28/2008/28/2024 XR, chest No observ ation record ed. [facility] [address] [facility] [address], [place], [address], 08/28/2024 12:58:48 09/02/2008/20/2024 US, doppl er echoc ardio gram No observ ation record ed. Not Available 2023 12:51:33 Result Notes None recorded. Problems Name Problem SNOMED Code Status Onset Date Resolution Date Notes Provider Name and Address Organization Details Recorded Time Uncontrolled type 2 diabetes mellitus 809857630 Active 2023 CARY Heredia [address], [place], [address], [employer] 4 10:27:20 Essential hypertension 01010930 Active 2023 CARY Heredia [address], [place], [address], [employer] 4 10:28:42 Iron deficiency anemia 62929477 Active 2023 CARY Heredia [address], [place], [address], [employer] 4 08:55:42 Problem Notes None recorded. Procedures Surgical History Date Name Laterality Status Provider Name and Address Organization Details Recorded Time 1 Amputation of toe completed Tessa Armstrong RN [facility] 07/02/2024 10:10:06 2 fixation of fracture using screws completed Tessa Armstrong RN [facility] 07/02/2024 10:09:49 Imaging Results None recorded. Procedure Notes None recorded. Medical Equipment None Reported. Allergies No known drug allergies Medications Name Sig Start Date Stop Date Status Note LastModified by Organization Details LastModified Time sulfamethox azole 800 mg-trimetho prim 160 mg tablet TAKE 1 TABLET BY MOUTH EVERY 12 HOURS FOR 7 DAYS 07/02 completed Not Available Not Available Not Available oxacillin 2 gram solution for injection active Not Available Not Available No t Available cephalexin 500 mg capsule TAKE 1 CAPSULE BY MOUTH 4 TIMES DAILY FOR 10 DAYS 07/02 completed Not Available Not Available Not Available simvastatin 20 mg tablet TAKE 1 TABLET BY MOUTH ONCE DAILY AT BEDTIME 07/02 completed Not Available Not Available Not Available Humulin 70/30 U-100 Insulin 100 unit/mL subcutaneou s suspension Inject 15 units twice a day by subcutane ous route before meal(s) for 30 days. 2023 active Not Available Not Available Not Avai lable losartan 50 mg-hydrochl orothiazide 12.5 mg tablet Take 1 tablet by mouth once daily 09/18 completed Not Available Not Available Not Available metformin ER 500 mg tablet,exte nded release 24 hr TAKE 1 TABLET BY MOUTH TWICE DAILY DIRECTED active Not Available Not Available No t Available losartan 100 mg-hydrochl orothiazide 12.5 mg tablet Take 1 tablet every day by oral route as directed for 30 days. active Not Available Not Available No t Available FeroSul 325 mg (65 mg iron) tablet Take 1 tablet every day by oral route as directed for 90 days. active Not Available Not Available No t Available Ozempic 0.25 mg or 0.5 mg (2 mg/3 mL) subcutaneou s pen injector INJECT 1/4 (ONE-FOUR TH) MG SUBCUTANE OUSLY ONCE A WEEK FOR 28 DAYS active Not Available Not Available No t Available Vitals None Recorded Social History Question Answer Notes LastModified by Organization Details LastModified Time Tobacco Smoking Status Never Smoker Tessa Armstrong RN null, [place] [facility] 07/02/2024 10:13:58 Do You Have An Advance Directive? No Information not available 07/02/2024 What Is Your Level Of Alcohol Consumption? Occasional Information not available 07/02/2024 Is Blood Transfusion Acceptable In An Emergency? Yes Information not available 07/02/2024 What Is Your Level Of Caffeine Consumption? Moderate Information not available 07/02/2024 What Is Your Code Status? DNR Information not available 07/02/2024 In The 14 Days Before Symptom Onset, Have You Had Close Contact With A Laboratory-confi rmed COVID-19 While That Case Was Ill? No Information not available 07/02/2024 In The 14 Days Before Symptom Onset, Have You Had Close Contact With A Person Who Is Under Investigation For COVID-19 While That Person Was Ill? No Information not available 07/02/2024 Are You Currently Employed? Yes Information not available 07/02/2024 What Type Of Diet Are You Following? 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 Yes Removal Of Part Of Right Foot Information not available 07/02/2024 Are There Any Guns Present In Your Home? Yes Information not available 07/02/2024 Do You Use Insect Repellent Routinely? No Information not available 07/02/2024 Where Do You Live? [facility] Information not available 07/02/2024 Do You Have A Medical Power Of [place]? No Information not available 07/02/2024 How Many Children Do You Have? 0 Information not available 07/02/2024 Do You Have Any Pets? No Information not available 07/02/2024 What Is Your Relationship Status? Single Information not available 07/02/2024 Do You Use Your Seat Belt Or Car Seat Routinely? Yes Information not available 07/02/2024 Do You Have Smoke And Carbon Monoxide Detectors In Your Home? Yes Information not available 07/02/2024 Are You Passively Exposed To Smoke? No Information not available 07/02/2024 Are There Any Smokers In Your House? No Information not available 07/02/2024 Do You Participate In Social Media? Yes Information not available 07/02/2024 Do You Feel Stressed (tense, Restless, Nervous, Or Anxious, Or Unable To Sleep At Night)? [id number] Information not available 07/02/2024 Do You Use Any Illicit Or Recreational Drugs? No Information not available 07/02/2024 Do You Use Sunscreen Routinely? No Information not available 07/02/2024 Have You Recently Traveled Abroad? No Information not available 07/02/2024 Sex: Unknown Functional Status Question Answer Note LastModified by Organization D etails LastModified Time What is your exercise level? None Information not available 07/02/2024 Mental Status None recorded. Family History Relationship Description Onset Age of this Age Resolved Age Notes LastModified by Organization Details LastModified Time Father Myocardial infarction Not available 07/02 10:08:33 Mother Malignant neoplasm of brain Not available 2023 10:08:45 Mother Malignant tumor of lung Not available 2023 10:08:56 Mother Malignant tumor of stomach Not available 2023 10:09:06 Medical History Condition Response OBESITY Y DIABETES, TYPE Y HYPERTENSION Y Past Encounters Encounter ID Performer Location Encounter Start Date Encounter Closed Date Diagnosis/Indication Diagnosis SNOMED-CT Code Diagnosis ICD10 Code [id number] [facility] [address] [address] 09/10/2024 15:36:20 09/11/2024 09:40:56 Health Concerns Section Related Observation LastModified by Organization Detai ls LastModified Time None Recorded Concern Status LastModified by Organization Details LastModified Time None Recorded Payers Encounter Date Sequence Insurance Name Policy Number Policy Linda Covered Member ID Linda Member ID Guarantor Name 09/10/2024 1 [place] [employer] [place] [employer] Kain Montejo [id number] Kain Montejo
--- OUTSIDE RECORDS SUMMARY | 2024-10-01 22:32 | XMS_ITS | Data Portability ---
Author Organization [place] - [facility] [place], Main Office Address [address] [place] [address] Assessment Encounter Date Assessment Date Assessment LastModified [...] patient had a minute TeleMedicine consultation via [employer] to discuss the following: [email or web address] Not available 09/10/2024 15:30:11 Plan of Treatment Reminders Order Date Submit Date Provider Last Modified By Organization Details Last Modified Time Details Appointments None recorded. Lab PSA, total, serum or plasma 2023 024 [facility] (Lab), [address] [place], [address], 4 08:00:23 glycohemogl obin, total, blood 2023 024 [facility] (Lab), [address] [place], [address], 4 08:00:22 microalbumi n, urine [address] (Lab), [address] [place], [address], 4 08:07:41 noninvasive colorectal cancer DNA + occult blood screening, QL, stool 2023 024 [facility] (Cologuard Orders Only), [address], [address], [place], [address], 4 08:07:40 CBC w/ auto diff 2023 024 [facility] (Lab), [address] [place], [address], 4 17:40:38 CMP, serum or plasma 2023 024 [facility] (Lab), [address] [place], [address], 4 05:33:30 lipid panel, serum [address] (Lab), [address] [place], [address], 4 08:00:22 TSH, serum or plasma [address] (Lab), [address] [place], [address], 4 08:00:23 Referral None recorded. Procedures None recorded. Surgeries None recorded. Imaging None recorded. Medication Orders metformin ER 500 mg tablet,exte nded release 24 hr 2023 [facility], [address] [place], [address], 4 10:34:10 Ozempic 0.25 mg or 0.5 mg (2 mg/3 mL) subcutaneou s pen injector 2023 024 [facility], [address] [place], [address], 10:34:09 Patient TargetsNo targets recorded. Patient Instructions Encounter Date Encounter Id Patient Instructions Last Modified By Organization Details Last Modified Time 09/10/2024 [id number] Due to the COVID-19 (Novel Coronavirus) pandemic, it is within this context (and with the understanding that this method of patient encounter is in the patient? s best interest as well as the health and safety of other patients and the public) that ? telehealth? is being provided for this patient encounter rather than a ibec-ep-adyk visit. This patient encounter is appropriate at [...] if listed, were provided by the patient. [email or web address] Not available 09/10/2024 15:30:11 Reason for Referral None Reported. Results Created Date Observation Date Name Description Value Unit Range Abnormal Flag Note LastModifiedBy Organization Detail LastModifiedTime 08/21/20 24 08/21/2024 MRI, ankle , w/ contr ast No observ ation record ed. [address] [place] [address], [address], 08/21/2024 11:37:26 08/28/20 24 08/28/2024 XR, chest No observ ation record ed. [address], [place], [address], 08/28/2024 12:58:48 09/02/20 24 08/20/2024 US, doppl er echoc ardio gram No observ ation record ed. Not Available 2023 12:51:33 Result Notes None recorded. Problems Name Problem SNOMED Code Status Onset Date Resolution Date Notes Provider Name and Address Organization Details Recorded Time Uncontrolled type 2 diabetes mellitus 818533055 Active [address] [facility], [facility] [address], [place], [address], [facility] 4 10:27:20 Essential hypertension 49786724 Active [address] [facility], [facility] [address], [place], [address], [facility] [employer] [facility] [place] 4 10:28:42 Iron deficiency anemia 91573714 Active [address] [facility], [facility] [address], [place], [address], [employer] 4 08:55:42 Problem Notes None recorded. Procedures Surgical History Date Name Laterality Status Provider Name and Address Organization Details Recorded Time 1 Amputation of toe completed Tessa Armstrong RN [facility] [employer] [facility] 07/02/2024 10:10:06 2 fixation of fracture using screws completed Tessa Armstrong RN [facility] [employer] [facility] 07/02/2024 10:09:49 Imaging Results Imaging Date Name Status LastModified by Organization Details LastModified Time 08/21/2024 MRI, ankle, w/ contrast completed [address] [place] [address], [address], 08/21/2024 11:37:26 08/28/2024 XR, chest completed [address] [place] [address], [address], 08/28/2024 12:58:48 08/20/2024 US, doppler echocardiogram completed [email or web address] Information not available 09/02/2024 12:51:33 Procedure Notes None recorded. Medical Equipment None [...] Available Not Available No t Available Vitals Date Recorded Body weight Body mass index (BMI) Body height Body temperature Heart rate Respiratory rate Oxygen saturation Oxygen saturation in Arterial blood by Pulse oximetry Systolic blood pressure Diastolic blood pressure Provider Name and Address Organization Details Last Updated DateTime 485531. 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 Yes Removal Of Part Of Right Foot Information not available 07/02/2024 Are There Any Guns Present In Your Home? Yes Information not available 07/02/2024 Do You Use Insect Repellent Routinely? No Information not available 07/02/2024 [facility] Information not available 07/02/2024 Do You Have A Medical Power Of Director Of Outside Sales? No Information not available 07/02/2024 How Many [...] Anxious, Or Unable To Sleep At Night)? [id number] Information not available 07/02/2024 Do You Use [...] Diagnosis/Indication Diagnosis SNOMED-CT Code Diagnosis ICD10 Code [id number] CARY Heredia [facility] [address] [place] [address] 07/02/2024 09:57:44 07/02/2024 11:24:32 Adult health examination 121071529 Z00.00 Uncontroll ed type 2 diabetes mellitus 893653737 E11.649 Essential hypertension 81363296 I10 Screening for malignant neoplasm of colon 337976661 Z12.11 Screening for malignant neoplasm of prostate 262017718 Z12.5 [id number] CARY Heredia [facility] [place] [address] [place] [address] 09/10/2024 15:36:20 09/11/2024 09:40:56 Health Concerns Section Related Observation LastModified by Organization Detai ls LastModified Time None Recorded Concern Status LastModified by Organization Details LastModified Time None Recorded Advance Directives Directive N: Payers Encounter Date Sequence Insurance Name Policy Number Policy Linda Covered Member ID Linda Member ID Guarantor Name 07/02/2024 1 [place] [facility] Kain Montejo [id number] Kain Montejo 09/10/2024 1 [place] [facility] Kain Montejo [id number] Kain Montejo Notes Date Note Type Note Provider Name and Address Organization Details Recorded Time 07/02/2024 text/html Kain Montejo is a 48 year old male patient here today to establish care. He has a history of type 2 DM, is taking novolin 70/30 u-100 15 u BID. Had surgery to remove second rt toe due to diabetic damage on 06/02/2024, had infection which required more tissue loss. This surgery was by Dr. Jauregui at [place]. States that he checks his sugars daily, usually in 200s. States while hospitalized A1C was 13.?Previously took metformin and Ozempic, had to stop due to insurance changes History of hypertension, is taking losartan 50- HCTZ 12.5 mg. BP on arrival 170/110, does not know what home BP looked like. Flu shot: declinesCOVID vaccines: x2Tdap: recommendedColonosc opy: cologuard ordered CARY Heredia [address] [facility], [facility] [address], [place], [address], [facility] - [facility] [employer] 07/02/2024 11:21:13
--- OUTSIDE RECORDS SUMMARY | 2024-10-01 22:33 | XMS_ITS | Data Portability ---
Author Organization [place] - [facility], [employer] Address [address] [facility] [address] [place] [address] Assessment Encounter Date Assessment Date Assessment LastModified by Organization Details LastModified Time 08/01/2019 08/01/2019 New patient presented for admission to the practice. Studies ordered as below. Discussed plan with patient, who expressed understanding . Follow up as noted below. [email or web address] Not available 08/01/2019 14:32:32 Plan of Treatment Reminders Order Date Submit Date Provider Last Modified By Organization Details Last Modified Time Details Appointments None recorded. Lab CK (creatine kinase), total, serum [address], [address] [place], [address], 9 09:58:25 lipid panel, serum [address], [address] [place], [address], 9 09:58:25 CBC w/ auto diff [address], [address] [place], [address], 9 09:58:25 CMP, serum or plasma [address], [address] [place], [address], 9 09:58:25 glucose tolerance test, 2-hour 2018 [facility], [address] [place], [address], 9 09:58:25 HbA1c (hemoglobi n A1c), blood [email or web address], [address] [place], [address], 9 09:58:26 magnesium, blood [address], [address] [place], [address], 9 09:58:26 D-dimer, quant, plasma [address], [address] [place], [address], 9 09:58:26 TSH, serum or plasma [email or web address], [address] [place], [address], 9 09:58:25 Referral optometris t referral 2018 LUKE Mariee MD, [address] [place] [address], [address], [place], [address], 9 13:13:[address] referral 2018 [email or web address] Not available 9 08:58:44 Procedures None recorded. Surgeries None recorded. Imaging electrocar diogram 2018 [email or web address] [place] [employer], [facility], [address], [place], [address], 9 15:16:33 US, carotid artery 2018 [email or web address] [facility], [address] [place], [address], 9 08:58:54 US, echocardio gram 2018 LUKE [place] [employer], [facility], [address], [place], [address], 9 09:56:46 Medication Orders aspirin 81 mg tablet,del ayed release 2018 [facility]FACE [facility], [address] [place], [address], 9 15:15:29 diltiazem CD 120 mg capsule,ex tended release 24 hr 2018 [facility], [address] [place], [address], 9 15:13:01 Patient TargetsNo targets recorded. Patient Instructions Encounter Date Encounter Id Patient Instructions Last Modified By Organization Details Last Modified Time 08/01/2019 [id number] learning about healthy weight [email or web address] Not available 08/01/2019 15:12:48 Reason for Referral Load Planner Referral for Ta chycardia Referring Physician: Danielle Robledo, Internal Medicine, Encounter Date: 08/01/2019 Automotive Quality Engineer Referral for Hem atoma Referring Physician: Danielle Robledo, Internal Medicine, Encounter Date: 08/01/2019 Results Created Date Observation Date Name Description Value Unit Range Abnormal Flag Note LastModifiedBy Organization Detail LastModifiedTime 08/02/2008/02/2019 pina hustongr am Rate & Rhythm Not Available [facility] [employer], [facility] [address], [place], [address], 08/01/2019 14:40:48 08/02/20 19 08/02/2019 elect britton diogr am QRS Not Available [employer], [facility] [address], [place], [address], 08/01/2019 14:40:48 08/02/20 19 08/02/2019 elect britton diogr am [place] Interval Not Available [facility], [facility] [address], [place], [address], 08/01/2019 14:40:48 08/02/20 19 08/02/2019 elect rocar diogr am QRS Duration Not Available [facility], [facility] [address], [place], [address], 08/01/2019 14:40:48 08/02/20 19 08/02/2019 elect rocar diogr am QT Interval Not Available [facility], [facility] [address], [place], [address], 08/01/2019 14:40:48 08/02/20 19 08/02/2019 elect rocar diogr am Change from Previous EKG? Not Available [facility], [facility] [address], [place], [address], 08/01/2019 14:40:48 08/02/2008/02/2019 elect rocar diogr am Date of Last EKG Not Available [facility], [facility] [address], [place], [address], 08/01/2019 14:40:48 08/02/20 19 08/01/2019 elect rocar diogr am No observ ation record ed. elvin [facility], [facility] [address], [place], [address], 08/02/2019 12:46:26 Result Notes None recorded. Problems Name Problem SNOMED Code Status Onset Date Resolution Date Notes Provider Name and Address Organization Details Recorded Time History of calculus of kidney 227979194 Completed 201808/01/2019 DANIELLE ROBLEDO APN [address], [place], [address], [facility] - [facility] 9 14:41:50 Benign hypertensio n 78016886 Active 2018 DANIELLE ROBLEDO APN [address], [place], [address], [facility] 9 14:35:14 Central retinal vein occlusion 33970704 Active 2018 Phong Dahl MD [address], [place], [address], [facility] 9 20:21:12 Problem Notes None recorded. Procedures Surgical History Date Name Laterality Status Provider Name and Address Organization Details Recorded Time Ankle arthroscopy/ surgery completed DANIELLE ROBLEDO APN [address], [place], [address], [facility] 08/01/2019 14:38:02 Imaging Results Imaging Date Name Status LastModified by Organization Details LastModified Time 08/01/2019 electrocardiogram completed elvin [employer], [facility] [address], [place], [address], 08/02/2019 12:46:26 Procedure Notes None recorded. Medical Equipment None Reported. Allergies No known drug allergies Medications Name Sig Start Date Stop Date Status Note LastModified by Organization Details LastModified Time aspirin 81 mg tablet,regina yed release Take 1 tablet every day by oral route. active Not Available Not Available Not Avai lable diltiazem CD 120 mg capsule,ext ended release 24 hr Take 1 capsule every day by oral route. active Not Available Not Available Not Avai lable Vitals Date Recorded Heart rate Respiratory rate Body temperature Body height Body mass index (BMI) Body weight Systolic blood pressure Diastolic blood pressure Provider Name and Address Organization Details Last Updated DateTime 9 112 /min 19 /min 98.4 [degF] 185.42 cm 29.8 kg/m2 878552. 88 g 139 mm[Hg] 103 mm[Hg] Alicia Kenney [facility] 9 14:27:49 Social History Question Answer Notes LastModified by Organizat ion Details LastModified Time Tobacco Smoking Status Never Smoker DANIELLE ROBLEDO APN [address], [place], [address], [facility] 08/01/2019 14:37:07 What Is Your Level Of Alcohol Consumption? Occasional [email or web address] Information not available 08/01/2019 What Is Your Level Of Caffeine Consumption? Moderate Information not available 08/01/2019 How Much Tobacco Do You Chew? None [email or web address] Information not available 08/01/2019 Which Illicit Or Recreational Drugs Have You Used? None Information not available 08/01/2019 What Is Your Occupation? [employer] Information not available 08/01/2019 Marital Status Single [email or web address] Informatio n not available 08/01/2019 What Was The Date Of Your Most Recent Tobacco Screening? 08/01/2019 Information not available 08/03/2019 Sex: Unknown Functional Status None recorded. Mental Status None recorded. Family History Relationship Description Onset Age of this Age Resolved Age Notes LastModified by Organization Details LastModified Time Maternal Grandmother Malignant tumor of lung [email or web address] Not available 08/01 14:36:19 Paternal Aunt Malignant tumor of lung [email or web address] Not available 08/01 14:36:28 Maternal Grandfather Diabetes mellitus Not available 08/01 14:36:46 Maternal Aunt Diabetes mellitus [email or web address] Not available 08/01 14:36:46 Mother Benign hypertension [email or web address] Not available 14:40:14 Father Myocardial infarction [email or web address] Not available 07/04 14:40:24 Medical History No medical history recorded. Immunizations Vaccine Type Date Status Note Provider Nam e and Address Organization Details Recorded Time Influenza, split virus, quadrivalent , PF 9 cancelled patient objection Not Available [employer] 10/19/2019 02:28:12 Past Encounters Encounter ID Performer Location Encounter Start Date Encounter Closed Date Diagnosis/Indication Diagnosis SNOMED-CT Code Diagnosis ICD10 Code [id number] DANIELLE ROBLEDO APN [facility], [facility] [address] [place] [address] 08/01/2019 14:07:38 08/01/2019 15:16:31 Hematoma 923051456 M79.81 Active or passive immunization 938367398 Z23 Benign hypertension 1072 5009 I10 Body mass index 25-29 - overweight 497825601 Z68.29 Hyperlipid emia screening 227656538 Z13.220 Family his tory of diabetes mellitus 860117874 Z83.3 Tachycardia 8380173 R00. 0 Antiplatel et agent therapy 235015370 Z79.02 Health Concerns Section Related Observation LastModified by Organization Detai ls LastModified Time None Recorded Concern Status LastModified by Organization Details LastModified Time None Recorded Advance Directives Directive None Recorded Payers Encounter Date Sequence Insurance Name Policy Number Policy Linda Covered Member ID Linda Member ID Guarantor Name 08/01/2019 1 *SELF PAY* Doug Montejo Notes Date Note Type Note Provider Name and Address Organization Details Recorded Time 08/01/2019 text/html New Patient DANIELLE ROBLEDO APN [address] [facility] [address], [place], [address], [facility] 08/01/2019 15:15:23
--- OUTSIDE RECORDS SUMMARY | 2024-10-01 22:33 | XMS_ITS | Data Portability ---
Author Organization [facility] Address [address] [place] [address] Care Team Providers Care University Lecturer Name Role Phone JUAN R LAMA Primary Care Provider Assessment Encounter Date Assessment Date Assessment LastModified by Organization Details LastModified Time 01/05/2023 01/05/2023 - SCHEDULE cardiology, podiatry, colonoscopy, ENT. given written reminder and printed out referrals Not available 01/05/2023 12:59:55 Plan of Treatment Reminders Order Date Submit Date Provider Last Modified By Organization Details Last Modified Time Details Appointments None recorded. Lab CMP, serum or plasma 2022 023 [facility], [address], [address], [place], [address], 3 06:17:06 lipid panel, serum 2022 023 [facility], [address], [address], [place], [address], 3 06:17:05 HbA1c (hemoglobin A1c), blood 2022 023 LUKE In-Office Order, Internal Use Only DO Not Attach Compendium DO Not Attach Compendium, Do Not Delete/merge, [id number] 3 12:38:23 glucose, fingerstick , blood 2022 023 [email or web address] In-Office Order, Internal Use Only DO Not Attach Compendium DO Not Attach Compendium, Do Not Delete/merge, [id number] 3 13:18:00 ESR (erythrocyt e sedimentati on rate), blood 2022 023 [facility] (Lab), [address], [place], [address], 3 05:00:55 C reactive protein, QN, serum or plasma 2022 023 [facility] (Lab), [address], [place], [address], 3 05:00:55 H pylori Ag, stool 2022 023 [facility] (Lab), [address], [place], [address], 3 05:00:55 pancreatic elastase, stool 2022 023 [facility] (Lab), [address], [place], [address], 3 05:00:55 O&P (ova & parasites), stool 2022 023 [facility] (Lab), [address], [place], [address], 3 05:00:55 celiac disease comprehensi ve panel, serum 2022 023 [facility] (Lab), [address], [place], [address], 3 05:00:55 giardia + cryptospori dium Ag, stool 2022 023 [facility] (Lab), [address], [place], [address], 3 05:00:55 C diff screen, stool, reflex PCR 2022 023 [facility] (Lab), [address], [place], [address], 3 05:00:55 calprotecti n, stool 2022 023 [facility] (Lab), [address] [place], [address], 3 05:00:55 CBC 2022 023 [facility] (Lab), [address], [place], [address], 3 05:00:55 Referral otolaryngol ogist referral - uvula enlarged, choking [email or web address], [address], [place], [address], 3 11:32:54 gastroenter ologist referral 2022 023 [facility], [address], [place], [address], 3 09:51:11 Procedures colonoscopy screening (PROC) 2022 023 [email or web address] Not available 3 10:35:06 colonoscopy procedure (PROC) - Is patient on blood thinners?: NPacemaker or defibrillat or?: NPrep (Colonoscop y Procedure): PEG 3350, Go Lytely, Colyte or Gavalyte G, depending on insurance coverageIf patient has had coronary / vascular stent, provide date: NoIf patient has had heart attack or stroke, provide date: NoHas patient ever had problems with anesthesia or sedation?: NoHas patient had problems with opening mouth or breathing tubes?: NoDoes patient use a wheelchair? : N 2022 023 [email or web address] Not available 3 11:53:51 home sleep testing (PROC) 2022 023 [email or web address] Not available 3 02:33:57 Surgeries None recorded. Imaging None recorded. Medication Orders losartan 50 mg tablet 2022 023 [facility] [address], [address] [place] [address], [address], 3 12:51:07 atenolol 50 mg tablet 2022 023 [facility] [address], [address] [place] [address], [address], 3 12:51:08 simvastatin 20 mg tablet 2022 023 [facility] [address], [address] [place] [address], [address], 3 12:51:06 Trulicity 1.5 mg/0.5 mL subcutaneou s pen injector [address], [address] [place] [address], [address], 3 09:48:16 Bactrim DS 800 mg-160 mg tablet [address], [address] [place] [address], [address], 3 09:48:13 Medrol (Rafael) 4 mg tablets in a dose pack [address], [address] [place] [address], [address], 3 09:47:36 diclofenac sodium 75 mg tablet,regina yed release 2022 023 [facility] [address], [address] [place] [address], [address], 3 11:17:20 Dulcolax (bisacodyl) 5 mg tablet,regina yed release 2022 023 [facility] [address], [address] [place] [address], [address], 16:45:11 Miralax 17 gram/dose oral powder 2022 023 [facility], [address], [place], [address], 16:45:12 Patient TargetsNo targets recorded. Patient Instructions Encounter Date Encounter Id Patient Instructions Last Modified By Organization Details Last Modified Time 01/05/2023 [id number] A healthy lifestyle: care instructions Not available 01/05/2023 12:22:29 02/06/2023 [id number] A healthy lifestyle: care instructions Not available 02/06/2023 13:19:21 02/06/2023 [id number] ingrown toenail: care instructions fharry Not available 02/06/2023 11:17:08 toenail fungus: care instructions fharry Not available 02/06/2023 11:17:08 plantar fasciiti s: care instructions fharry Not available 02/06/2023 11:17:08 The area of erythema was evaluated and it should be noted that antibiotics were discussed and a close evaluation was performed to assess the need for oral antibiotics. Due to the non-ascending nature and local presentation of the erythema no additional antibiotics were ordered at this time -reviewed previous wound cultures x2 revealing normal elicia =continue gentamicin 0.1% cream -reviewed esr/crp wnl ordered 11/23/21 Patient was educated about the systemic risks of diabetes and importance of proper glucose control, dangers of neuropathy and loss of gift of pain and risk stratification and exam frequency. Patient was educated on high pressure areas including risks and offloading solutions. Reviewed with patient proper foot care instructions and daily self-examination and monitoring of the feet. The patient was educated regarding how to mechanically stabilize their deformity. The patient was given education about shoe recommendations specific for the condition. The patient was educated about custom orthotics and how appropriate shoes and orthotics can prevent further worsening of the deformity. The patient was educated about how bad shoe habits can worsen the condition. NSAIDS, P.T., injections and other conservative treatments were discussed. Both surgical and non surgical treatments were discussed, but conservative options were emphasized. The patient was educated about the importance of exercise, diet and the need to protect their feet in order to prevent injury or ulceration. -continue vascular referral [facility] heart and vascular -previously ordered sonal fharry Not available 02/06/2023 10:00:02 03/06/2023 [id number] RL About Your Colonoscopy 1 Day Prep [email or web address] Not available 03/06/2023 16:44:58 Reason for Referral [employer]imb[employer] Instructor Referral fo r Uvular hypertrophy uvula enlarged, choking Referring Physician: Juan R Lama, Ultrasound Sonographer, Encounter Date: 01/05/2023 Coding Compliance Specialist Referral for Screening colonoscopy Referring Physician: Juan R Lama Ultrasound Sonographer, Encounter Date: 02/06/2023 Results Created Date Observation Date Name Description Value Unit Range Abnormal Flag Note LastModifiedBy Organization Detail LastModifiedTime 01/06/2001/06/2023 LIPID PANEL cholesterol, total 177.4 mg/dL 140.0- 200.0 Not Available [facility] Department [address] [place] [address], [address], 01/06/2023 06:17:05 01/06/2001/06/2023 LIPID PANEL triglyceride s 195 mg/dL <=150 above high normal Not Available [facility] [address] [place] [address], [address], 01/06/2023 06:17:05 01/06/2001/06/2023 LIPID PANEL HDL cholesterol 38.4 mg/dL 40.0-1 00.0 below low normal Not Available [facility] [address] [place], [address], 01/06/2023 06:17:05 01/06/2001/06/2023 LIPID PANEL VLDL cholesterol ila 39.00 mg/dL 5.00-4 0.00 Not Available [facility] Department [address] [place], [address], 01/06/2023 06:17:05 01/06/2001/06/2023 LIPID PANEL LDL chol calc ([facility]) 105.1 Not Available [facility] Department [address] [place], [address], 01/06/2023 06:17:05 01/06/20 23 01/06/2023 COMP. METAB OLIC PANEL (14) glucose 237 mg/dL 65-99 above high normal ANION GP 21.0 mmol/ L N OSMOL 289.0 mOsM/ L N REFER ENCE RANGE : 275.0 -301. 0 Not Available [facility] Department [address] [place], [address], 01/06/2023 06:17:06 01/06/20 23 01/06/2023 COMP. METAB OLIC PANEL (14) BUN 18 mg/dL 8-26 Not Available [facility] Department [address] [place] [address], [address], 01/06/2023 06:17:06 01/06/20 23 01/06/2023 COMP. METAB OLIC PANEL (14) creatinine 1.12 mg/dL 0.50-1 .40 Not Available [facility] Department [address] [place], [address], 01/06/2023 06:17:06 01/06/20 23 01/06/2023 COMP. METAB OLIC PANEL (14) eGFR 81 mL/mi n/1.7 3 >=60 Not Available [facility] Department [address] [place] [address], [address], 01/06/2023 06:17:06 01/06/20 23 01/06/2023 COMP. METAB OLIC PANEL (14) BUN/creatini ne ratio 16.0 Not Available [facility] Department [address] [place], [address], 01/06/2023 06:17:06 01/06/20 23 01/06/2023 COMP. METAB OLIC PANEL (14) sodium 140.0 mmol/ L 136.0- 144.0 Not Available [facility] Department [address] [place] [address], [address], 01/06/2023 06:17:06 01/06/20 23 01/06/2023 COMP. METAB OLIC PANEL (14) potassium 4.7 mmol/ L 3.5-5. 3 Not Available [facility] [address] [place], [address], 01/06/2023 06:17:06 01/06/20 23 01/06/2023 COMP. METAB OLIC PANEL (14) chloride 103 mmol/ l 101-11 1 Not Available [facility] Department [address] [place], [address], 01/06/2023 06:17:06 01/06/20 23 01/06/2023 COMP. METAB OLIC PANEL (14) carbon dioxide, total 20.2 mmol/ L 21.0-3 2.0 below low normal Not Available [facility] Department [address] [place] [address], [address], 01/06/2023 06:17:06 01/06/20 23 01/06/2023 COMP. METAB OLIC PANEL (14) calcium 9.6 mg/dL 8.2-10 .0 Not Available [facility] [address] [place], [address], 01/06/2023 06:17:06 01/06/20 23 01/06/2023 COMP. METAB OLIC PANEL (14) protein, total 7.1 g/dL 6.7-8. 2 Not Available [facility] [address] [place], [address], 01/06/2023 06:17:06 01/06/20 23 01/06/2023 COMP. METAB OLIC PANEL (14) albumin 4.5 g/dL 3.5-5. 5 Not Available [facility] [address] [place], [address], 01/06/2023 06:17:06 01/06/20 23 01/06/2023 COMP. METAB OLIC PANEL (14) globulin, total 2.6 g/dL 1.5-4. 5 Not Available [facility] Department [address] [place] [address], [address], 01/06/2023 06:17:06 01/06/20 23 01/06/2023 COMP. METAB OLIC PANEL (14) A/G ratio 1.8 Not Available [facility] Department [address] [place], [address], 01/06/2023 06:17:06 01/06/20 23 01/06/2023 COMP. METAB OLIC PANEL (14) bilirubin, total 1.0 mg/dL 0.0-1. 2 Not Available [facility] [address] [place], [address], 01/06/2023 06:17:06 01/06/20 23 01/06/2023 COMP. METAB OLIC PANEL (14) alkaline phosphatase 69.7 IU/L 42.0-1 21.0 Not Available [facility] [address] [place], [address], 01/06/2023 06:17:06 01/06/20 23 01/06/2023 COMP. METAB OLIC PANEL (14) AST (SGOT) 24.4 U/L 10.0-4 2.0 Not Available [facility] Department [address] [place] [address], [address], 01/06/2023 06:17:06 01/06/20 23 01/06/2023 COMP. METAB OLIC PANEL (14) ALT (SGPT) 35.5 U/L 10.0-6 0.0 Not Available [facility] Department [address] [place], [address], 01/06/2023 06:17:06 01/06/20 23 01/05/2023 HbA1c (hemo globi n A1c), blood HbA1c 8.9% Not Available In-Office Order Internal Use Only DO Not Attach Compendium DO Not Attach Compendium, Do Not Delete/merge, [id number] 01/05/2023 12:21:35 02/07/20 23 02/06/2023 gluco se, ruye rskalpana k, blood Blood Glucose: mg/dl 193 Not Available In-Off ice Order Internal Use Only DO Not Attach Compendium DO Not Attach Compendium, Do Not Delete/merge, [id number] 02/06/2023 12:22:57 Result Notes None recorded. Problems Name Problem SNOMED Code Status Onset Date Resolution Date Notes Provider Name and Address Organization Details Recorded Time Type 2 diabetes mellitus 48335822 Active 2020 SOURAV BREWER Attn: Debra marylu,[address], [place], [address], [place] [facility] 1 12:24:43 Essential hypertensio n 34605726 Active 2020 SOURAV BREWER Attn: Debra valero,[address], [place], [address], [place] [facility] 1 12:24:45 Osteomyelit is 27203449 Active 2020 SOURAV BREWER Attn: Debra valero,[address], [place], [address], [place] [facility] 1 12:24:53 Ulcer of foot 55985621 Active 2021 SOURAV BREWER Attn: Debra valero,[address], [place], [address], [place] [facility] 2 16:37:17 Retinopathy due to secondary diabetes mellitus 5918434354395 08 Active 2021 SOURAV BREWER Attn: Debra valero,[address], [place], [address], [place] [facility] 2 16:49:38 Foot callus 685512655 Active 2021 SOURAV BREWER Attn: Debra valero,[address], [place], [address], [place] [facility] 2 16:49:48 Diarrhea 68337916 Active 2022 SOURAV BREWER Attn: Debra valero,[address], [place], [address], [facility] 3 12:57:16 Problem Notes None recorded. Procedures Surgical History Date Name Laterality Status Provider Name and Address Organization Details Recorded Time 3 Routine Foot Care completed TERRY CAGE DPM [address], [place], [address], [facility] 02/12/2023 15:40:52 3 Toenail avulsion completed TERRY CAGE DPM [address], [place], [address], [facility] 02/12/2023 15:40:21 2 Ulcer Debridement completed TERRY CAGE DPM [address], [place], [address], [facility] 03/24/2022 16:09:53 2 Ulcer Debridement completed TERRY CAGE DPM [address], [place], [address], [facility] 03/10/2022 13:14:32 2 Ulcer Debridement completed TERRY CAGE DPM [address], [place], [address], [facility] 02/24/2022 09:56:09 2 Toenail avulsion completed TERRY CAGE DPM [address], [place], [address], [facility] 02/24/2022 17:21:55 2 Ulcer Debridement completed TERRY CAGE DPM [address], [place], [address], [facility] 02/10/2022 10:56:50 2 Routine Foot Care completed TERRY CAGE DPM [address], [place], [address], [facility] 01/28/2022 13:01:02 2 Ulcer Debridement completed TERRY CAGE, YUNIER [address], [place], [address], [place] [facility] 01/28/2022 13:01:11 2 Ulcer Debridement completed TERRY CAGE, SALONIM [address], [place], [address], [place] [facility] 01/23/2022 10:23:13 2 Ulcer Debridement completed SALONI HERNANDEZM [address], [place], [address], [place] [facility] 01/14/2022 10:03:27 2 Ulcer Debridement completed TERRY CAGE DPM [address], [place], [address], [place] [facility] 01/07/2022 10:04:08 2 Ulcer Debridement completed TERRY CAGE DPM [address], [place], [address], [place] [facility] 12/29/2021 10:46:22 2 Ulcer Debridement completed TERRY CAGE DPM [address], [place], [address], [place] [facility] 12/24/2021 10:02:24 2 Ulcer Debridement completed TERRY CAGE DPM [address], [place], [address], [place] [facility] 12/16/2021 14:51:52 2 Ulcer Debridement completed SALONI HERNANDEZM [address], [place], [address], [place] [facility] 12/09/2021 10:07:04 2 Ulcer Debridement completed TERRY CAGE DPM [address], [place], [address], [place] [facility] 12/01/2021 09:58:03 2 Routine Foot Care completed TERRY CAGE DPM [address], [place], [address], [place] [facility] 11/23/2021 10:44:39 2 Ulcer Debridement completed TERRY CAGE SALONIMarlys [address], [place], [address], [facility] 11/24/2021 09:54:41 2 Dermatology Excision completed TERRY CAGE SALONIMarlys [address], [place], [address], [facility] 11/24/2021 09:49:37 Imaging Results None recorded. Procedure Notes None recorded. Medical Equipment None Reported. Allergies No known drug allergies Medications Name Sig Start Date Stop Date Status Note LastModified by Organization Details LastModified Time losartan 50 mg tablet TAKE 1 TABLET BY MOUTH ONCE DAILY FOR 90 DAYS active Not Available Not Available No t Available Miralax 17 gram/dose oral powder In a pitcher, mix entire bottle of Miralax in one 64 ounce bottle of yellow or green Gatorade. Beginning at 5:00 PM the evening before the colonosco py, drink 1 8-ounce glass every 15 minutes until completed . Drink 4 glasses of water after finishing this mixture 2022 active Not Available Not Available Not Avai lable metformin 500 mg tablet TAKE 2 TABLETS BY MOUTH TWICE DAILY active Not Available Not Available No t Available Novolin 70/30 U-100 Insulin 100 unit/mL subcutaneou s suspension INJECT 15 UNITS SUBCUTANE OUSLY TWICE DAILY BEFORE MEAL(S) FOR 30 DAYS active Not Available Not Available No t Available atenolol 25 mg tablet TAKE 1 TABLET BY MOUTH ONCE DAILY active Not Available Not Available No t Available ciprofloxac in 500 mg tablet TAKE 1 TABLET BY MOUTH EVERY 12 HOURS FOR 7 DAYS 12/29 completed Not Available Not Available Not Available sulfamethox azole 800 mg-trimetho prim 160 mg tablet TAKE 1 TABLET BY MOUTH EVERY 12 HOURS FOR 14 DAYS 02/22 completed Not Available Not Available Not Available aspirin 81 mg tablet,regina yed release Take 1 tablet every day by oral route. 2021 active Not Available Not Available Not Avai lable magnesium oxide 400 mg (241.3 mg magnesium) tablet TAKE 1 TABLET BY MOUTH ONCE DAILY FOR 7 DAYS 05/14 completed Not Available Not Available Not Available cephalexin 500 mg capsule TAKE 1 CAPSULE BY MOUTH EVERY 8 HOURS FOR 7 DAYS 11/26 completed Not Available Not Available Not Available simvastatin 20 mg tablet TAKE 1 TABLET BY MOUTH ONCE DAILY AT BEDTIME active Not Available Not Available No t Available lisinopril 10 mg tablet TAKE 1 TABLET BY MOUTH ONCE DAILY 12/03 completed Not Available Not Available Not Available metoprolol tartrate 50 mg tablet TAKE ONE TABLET BY MOUTH TWICE DAILY WITH MEALS active Not Available Not Available No t Available gentamicin 0.1 % topical cream APPLY CREAM TOPICALLY TO AFFECTED AREA THREE TIMES DAILY active Not Available Not Available No t Available diclofenac sodium 75 mg tablet,regina yed release TAKE 1 TABLET BY MOUTH TWICE DAILY active Not Available Not Available No t Available levofloxaci n 750 mg tablet Take 1 tablet every day by oral route for 7 days. 08/02 completed Not Available Not Available Not Available methylpredn isolone 4 mg tablets in a dose pack TAKE BY MOUTH DIRECTED ON INSIDE OF PACKAGE 02/22 completed Not Available Not Available Not Available losartan 50 mg-hydrochl orothiazide 12.5 mg tablet TAKE 1 TABLET BY MOUTH ONCE DAILY active Not Available Not Available No t Available cefdinir 300 mg capsule TAKE ONE CAPSULE BY MOUTH TWICE DAILY 05/14 completed Not Available Not Available Not Available metformin ER 500 mg tablet,exte nded release 24 hr TAKE 1 TABLET BY MOUTH TWICE DAILY DIRECTED active Not Available Not Available No t Available atenolol 50 mg tablet TAKE 1 TABLET BY MOUTH ONCE DAILY FOR 90 DAYS active Not Available Not Available No t Available Dulcolax (bisacodyl) 5 mg tablet,regina yed release At 2:00 PM the day before the colonosco py, take all 4 tablets of Dulcolax by mouth at one time with 8 ounces of water 2022 active Not Available Not Available Not Avai lable ezetimibe 10 mg tablet TAKE 1 TABLET BY MOUTH ONCE DAILY active Not Available Not Available No t Available Novolog FlexPen U-100 Insulin aspart 100 unit/mL (3 mL) subcutaneou s INJECT 8 UNITS SUBCUTANE OUSLY THREE TIMES DAILY WITH MEALS 06/24 completed Not Available Not Available Not Available rosuvastati n 40 mg tablet 05/05 completed Not Available Not Available Not Available Levemir FlexPen 100 unit/mL (3 mL) solution subcutaneou s insulin pen INJECT 24 UNITS SUBCUTANE OUSLY AT NIGHT active Not Available Not Available No t Available Jardiance 10 mg tablet TAKE 1 TABLET BY MOUTH ONCE DAILY active Not Available Not Available No t Available Jardiance 25 mg tablet TAKE 1 TABLET BY MOUTH ONCE DAILY active Not Available Not Available No t Available Trulicity 1.5 mg/0.5 mL subcutaneou s pen injector INJECT 1 SYRINGE SUBCUTANE OUSLY ONCE A WEEK 02/22 completed Not Available Not Available Not Available Trulicity 0.75 mg/0.5 mL subcutaneou s pen injector INJECT 1/2 (ONE-HALF ) ML SUBCUTANE OUSLY ONCE A WEEK active Not Available Not Available No t Available TRUEplus Pen Needle 31 gauge x 1/4 USE 1 DIRECTED 4 TIMES DAILY active Not Available Not Available No t Available Xarelto 2.5 mg tablet TAKE 1 TABLET BY MOUTH TWICE DAILY DIRECTED active Not Available Not Available No t Available Trulicity 3 mg/0.5 mL subcutaneou s pen injector INJECT 1 SYRINGE SUBCUTANE OUSLY ONCE A WEEK active Not Available Not Available No t Available Trulicity 4.5 mg/0.5 mL subcutaneou s pen injector Inject 4.5 mg every week by subcutane ous route. 01/05 completed Not Available Not Available Not Available pen needle, diabetic 31 gauge x 15/64 USE DIRECTED WITH INSULIN PENS active Not Available Not Available No t Available Ozempic 0.25 mg or 0.5 mg (2 mg/3 mL) subcutaneou s pen injector INJECT 1/4 (ONE-FOUR TH) MG SUBCUTANE OUSLY ONCE A WEEK FOR 28 DAYS active Not Available Not Available No t Available Vitals Date Recorded Body height Provider Name an d Address Organization Details Last Updated DateTime 01/05/2023 185.42 cm Zahra Mccall [place] [facility] 01/05/2023 12:05:33 Date Recorded Body mass index (BMI) Body weight Systolic blood pressure Diastolic blood pressure Provider Name and Address Organization Details Last Updated DateTime 01/05/2023 32.5 kg/m2 536002.16 g 142 mm[Hg] 100 mm[Hg] SOURAV BREWER Attn: Accounting ,[address], [place], [address] , [facility] 01/05/2023 12:21:06 Date Recorded Body height Body mass index (BMI) Body weight Body temperature Heart rate Systolic blood pressure Diastolic blood pressure Provider Name and Address Organization Details Last Updated DateTime 3 185.42 cm 34.7 kg/m2 240650. 15 g 98.6 [degF] 83 /min 155 mm[Hg] 94 mm[Hg] Rohit Vazquez MA [facility] 3 09:44:59 Date Recorded Body height Body mass index (BMI) Body weight Heart rate Oxygen saturation Oxygen saturation in Arterial blood by Pulse oximetry Systolic blood pressure Diastolic blood pressure Provider Name and Address Organization Details Last Updated DateTime 3 185.42 cm 34.7 kg/m2 229437. 79 g 91 /min 97 % 97 % 130 mm[Hg] 84 mm[Hg] Zahra Mccall [facility] 3 12:16:11 Date Recorded Body height Heart rate Body temperature Respiratory rate Systolic blood pressure Diastolic blood pressure Provider Name and Address Organization Details Last Updated DateTime 3 185.42 cm 97 /min 98 [degF] 18 /min 150 mm[Hg] 96 mm[Hg] Garret Prado LPN [facility] 3 16:01:47 Date Recorded Body height Body mass index (BMI) Body weight Heart rate Body temperature Systolic blood pressure Diastolic blood pressure Provider Name and Address Organization Details Last Updated DateTime 3 185.42 cm 34.7 kg/m2 940845. 79 g 97 /min 98 [degF] 150 mm[Hg] 96 mm[Hg] Zahra White [facility] 3 16:34:11 Social History Question Answer Notes LastModified by Organizat ion Details LastModified Time Tobacco Smoking Status Never Smoker Mariana Ibanez LPN null, [facility] 12/29/2021 09:32:34 Do You Have An Advance Directive? No Information n ot available 12/29/2021 What Is Your Level Of Alcohol Consumption? Occasional Information not available 05/14/2021 In The 14 Days Before Symptom Onset, Have You Had Close Contact With A Laboratory-confirm ed COVID-19 While That Case Was Ill? No Information n ot available 05/14/2021 In The 14 Days Before Symptom Onset, Have You Had Close Contact With A Person Who Is Under Investigation For COVID-19 While That Person Was Ill? No Information not available 05/14/2021 Have You Been To An Area Known To Be High Risk For COVID-19? No Information not available 05/14/2021 Are You Currently Employed? Yes Information not available 03/06/2023 What Is The Highest Grade Or Level Of School You Have Completed Or The Highest Degree You Have Received? [id number] Information not available 03/06/2023 Do You Have A Medical Power Of Classroom Paraprofessional? Yes Information not available 12/29/2021 What Was The Date Of Your Most Recent Tobacco Screening? 02/06/2023 abeverlyma Information not available 02/06/2023 Do You Have Smoke And Carbon Monoxide Detectors In Your Home? Yes Information not available 05/14/2021 Are You Passively Exposed To Smoke? No Information no t available 05/14/2021 Has Tobacco Cessation Counseling Been Provided? Yes Information not available 05/14/2021 On What Date Was Tobacco Cessation Counseling Provided? 02/06/2023 Information not available 02/06/2023 Sex: Male Functional Status None recorded. Mental Status None recorded. Family History Relationship Description Onset Age of this Age Resolved Age Notes LastModified by Organization Details LastModified Time Father Myocardial infarction Not available 05/14 11:27:11 Notes:Cancer - mother Medical History Condition Response Coronary Artery Disease N Other N High Blood Pressure N Atrial Fibrillation N Kidney or Bladder Problems N Thyroid Problems N GI Problems N Depression N COPD N Blood Clots N Skin Problems N Anemia N Heart Attack ([place]) N Anxiety Disorder N Diabetes N Muscle, Joint, or Bone Problems N Seizures/Epilepsy N Acid Reflux (GERD) N Cancer N Stroke N Asthma N Allergies N High Cholesterol N Hepatitis N Liver Disease N Headaches N Heart Failure N Osteoporosis N Immunizations Vaccine Type Date Status Note Provider Nam e and Address Organization Details Recorded Time COVID-19, mRNA, LNP-S, PF, 30 mcg/0.3 mL dose 1 completed Zahra Mccall null, [place] [facility] 01/05/2023 11:17:48 COVID-19, mRNA, LNP-S, PF, 30 mcg/0.3 mL dose 1 completed [place]ra [place]cc[place] [facility] 01/05/2023 11:17:48 pneumococcal polysaccharide PPV23 2 completed Jennifer San [place], [place] [facility] 08/03/2022 15:42:54 Tdap 3 completed SOURAV BREWER Attn: Accounting,[address] [facility], [place], [address], [place] [facility] 02/06/2023 13:18:01 Past Encounters Encounter ID Performer Location Encounter Start Date Encounter Closed Date Diagnosis/Indication Diagnosis SNOMED-CT Code Diagnosis ICD10 Code [id number] SOURAV BREWER [facility] [address] [place] [address] 05/14/2021 10:52:09 05/17/2021 14:19:08 Type 2 diabetes mellitus 62564386 E11.9 Essential hypertension 90862671 I10 Osteomyelitis 55138903 M 86.9 Abnormal feces 364856657 R19.5 [id number] SOURAV BREWER [facility] [address] [place] [address] 05/28/2021 09:21:31 05/31/2021 13:51:14 Essential hypertension 71878450 I10 Type 2 darien betes mellitus 97599268 E11.9 Osteomyelitis 56397946 M 86.9 [id number] Zahra Mccall [facility] [address] [place] [address] 09/08/2021 09:34:53 09/09/2021 10:16:06 Type 2 diabetes mellitus 61825744 E11.9 [id number] SOURAV BREWER [facility] [address] [place] [address] 11/18/2021 11:42:35 11/19/2021 10:13:13 Type 2 diabetes mellitus 46416938 E11.9 Essential hypertension 28074741 I10 Diabetes mellitus 660123 09 E11.9 Peripheral pulse absent 505390139 R09.89 Ulcer of foot 59509269 L 97.909 Paronychia of toe 425819 002 L03.039 Overweight 548210980 E66 .3 Foot callus 797688114 L8 4 Retinopath y due to secondary diabetes mellitus 1100485462 56545 E08.[id number] [facility] [address] [place] [address] 11/23/2021 09:23:51 11/25/2021 10:08:39 Ulcer of foot 18126494 L97.512 Ulcer of heel 345004971 L97.422 Cellulitis of foot 96163 6007 L03.119 Osteomyeli tis of ankle AND/OR foot 06426246 M86.679 Bilateral atherosclerosis of arteries of lower limbs 1527240453 6941242 I70.203 Diabetic p eripheral neuropathy 623921658 E11.42 Foot ulcer due to type 2 diabetes mellitus 1536146947 100 E11.621 Onychomycosis 565425063 B35.1 [place] - lesion 596499748 L84 Pyogenic granuloma 2002 L98.0 [id number] TERRY CAGE DPM [facility] [address] [place] [address] 12/01/2021 09:23:47 12/02/2021 08:19:30 Ulcer of foot 80024880 L97.512 Ulcer of heel 106820102 L97.422 Cellulitis of foot 79835 6007 L03.119 Osteomyeli tis of ankle AND/OR foot 56145808 M86.679 Bilateral atherosclerosis of arteries of lower limbs 9234881577 8897201 I70.203 Diabetic p eripheral neuropathy 115702975 E11.42 Foot ulcer due to type 2 diabetes mellitus 4118343306 100 E11.621 Onychomycosis 337421340 B35.1 [place] - lesion 665463393 L84 Pyogenic granuloma 2002 L98.0 [id number] TERRY CAGE DPM [facility] [address] [place] [address] 12/09/2021 09:34:44 12/10/2021 09:48:11 Ulcer of foot 40878561 L97.512 Ulcer of heel 039166498 L97.422 Cellulitis of foot 11408 6007 L03.119 Osteomyeli tis of ankle AND/OR foot 60800815 M86.679 Bilateral atherosclerosis of arteries of lower limbs 4247310340 4805579 I70.203 Diabetic p eripheral neuropathy 799034317 E11.42 Foot ulcer due to type 2 diabetes mellitus 4819901885 100 E11.621 Onychomycosis 151009898 B35.1 [place] - lesion 428622169 L84 Pyogenic granuloma 2002 L98.0 Cellulitis of right foot 6647115514 2739139 L03.996 [id number] TERRY CAGE DPM [facility] [address] [place] [address] 12/16/2021 14:07:38 12/17/2021 07:23:56 Ulcer of foot 02367687 L97.512 Ulcer of heel 150461399 L97.422 Cellulitis of foot 61756 6007 L03.119 Osteomyeli tis of ankle AND/OR foot 62287834 M86.679 Bilateral atherosclerosis of arteries of lower limbs 8258606532 6188270 I70.203 Diabetic p eripheral neuropathy 226711583 E11.42 Foot ulcer due to type 2 diabetes mellitus 0274179196 100 E11.621 Onychomycosis 762686343 B35.1 [place] - lesion 986844982 L84 Pyogenic granuloma 2002 L98.0 Cellulitis of right foot 3673139153 5395608 L03.649 [id number] TERRY CAGE DPM [facility] [address] [place] [address] 12/24/2021 09:43:42 12/27/2021 12:09:02 Ulcer of foot 21364964 L97.512 Ulcer of heel 025745044 L97.422 Cellulitis of foot 81611 6007 L03.119 Osteomyeli tis of ankle AND/OR foot 88704979 M86.679 Bilateral atherosclerosis of arteries of lower limbs 7498800826 7727681 I70.203 Diabetic p eripheral neuropathy 933037604 E11.42 Foot ulcer due to type 2 diabetes mellitus 0001469490 100 E11.621 Onychomycosis 644652720 B35.1 [place] - lesion 442711366 L84 Cellulitis of right foot 9434652731 1420855 L03.[id number] [facility] [address] [place] [address] 12/29/2021 09:26:06 12/29/2021 14:39:37 Ulcer of foot 56052800 L97.512 Ulcer of heel 929600486 L97.422 Cellulitis of foot 51937 6007 L03.119 Osteomyeli tis of ankle AND/OR foot 29922396 M86.679 Bilateral atherosclerosis of arteries of lower limbs 1997033469 4678077 I70.203 Diabetic p eripheral neuropathy 329848591 E11.42 Foot ulcer due to type 2 diabetes mellitus 4643954364 100 E11.621 Onychomycosis 003204034 B35.1 [place] - lesion 688031199 L84 Cellulitis of right foot 9036580888 4635690 L03.584 [id number] TERRY CAGE DPM [facility] [address] [place] [address] 01/07/2022 09:23:22 01/11/2022 15:38:34 Ulcer of foot 09416368 L97.512 Ulcer of heel 950806099 L97.422 Cellulitis of foot 28020 6007 L03.119 Osteomyeli tis of ankle AND/OR foot 09486134 M86.679 Bilateral atherosclerosis of arteries of lower limbs 0241872497 2194326 I70.203 Diabetic p eripheral neuropathy 900577325 E11.42 Foot ulcer due to type 2 diabetes mellitus 2891297080 100 E11.621 Onychomycosis 684979820 B35.1 [place] - lesion 558221582 L84 Cellulitis of right foot 2670267011 7640802 L03.[id number] [facility] [facility] [address] [place] [address] 01/14/2022 09:26:27 01/14/2022 10:53:36 Ulcer of foot 19496428 L97.512 Ulcer of heel 290122010 L97.422 Cellulitis of foot 11534 6007 L03.119 Osteomyeli tis of ankle AND/OR foot 65680492 M86.679 Bilateral atherosclerosis of arteries of lower limbs 2865423545 4137132 I70.203 Diabetic p eripheral neuropathy 642308427 E11.42 Foot ulcer due to type 2 diabetes mellitus 6455806223 100 E11.621 Onychomycosis 340823038 B35.1 [place] - lesion 818027429 L84 Cellulitis of right foot 1451795862 7277463 L03.085 [id number] TERRY CAGE DPM [facility] [address] [place] [address] 01/21/2022 09:36:52 01/24/2022 15:04:37 Ulcer of foot 65275432 L97.512 Ulcer of heel 430012695 L97.422 Cellulitis of foot 64671 6007 L03.119 Osteomyeli tis of ankle AND/OR foot 91262296 M86.679 Bilateral atherosclerosis of arteries of lower limbs 2303340901 6763043 I70.203 Diabetic p eripheral neuropathy 178541930 E11.42 Foot ulcer due to type 2 diabetes mellitus 3194980909 100 E11.621 Onychomycosis 591727032 B35.1 [place] - lesion 646116296 L84 Cellulitis of right foot 1085389267 5842944 L03.[id number] [facility] [address] [place] [address] 01/28/2022 11:27:23 02/16/2022 12:56:38 Ulcer of foot 90262759 L97.512 Ulcer of heel 727390012 L97.422 Cellulitis of foot 87143 6007 L03.119 Osteomyeli tis of ankle AND/OR foot 06061229 M86.679 Bilateral atherosclerosis of arteries of lower limbs 1759484031 9764296 I70.203 Diabetic p eripheral neuropathy 441866770 E11.42 Foot ulcer due to type 2 diabetes mellitus 6961108989 100 E11.621 Onychomycosis 662139024 B35.1 [place] - lesion 026467078 L84 Cellulitis of right foot 9129917503 6452548 L03.632 [id number] TERRY CAGE DPM [facility] [address] [place] [address] 02/10/2022 10:30:22 02/11/2022 07:35:35 Ulcer of foot 44527703 L97.512 Ulcer of heel 081754970 L97.422 Cellulitis of foot 91752 6007 L03.119 Osteomyeli tis of ankle AND/OR foot 45402384 M86.679 Bilateral atherosclerosis of arteries of lower limbs 0902076770 2957104 I70.203 Diabetic p eripheral neuropathy 875222853 E11.42 Foot ulcer due to type 2 diabetes mellitus 0330871742 100 E11.621 Onychomycosis 618754487 B35.1 [place] - lesion 611011411 L84 Cellulitis of right foot 2591600043 9177080 L03.644 [id number] TERRY CAGE DPM [facility] [address] [place] [address] 02/24/2022 09:22:52 02/25/2022 13:44:20 Ulcer of foot 46784496 L97.512 Ulcer of heel 821228812 L97.422 Cellulitis of foot 86260 6007 L03.119 Osteomyeli tis of ankle AND/OR foot 57441021 M86.679 Bilateral atherosclerosis of arteries of lower limbs 5666781453 0243678 I70.203 Diabetic p eripheral neuropathy 496010539 E11.42 Foot ulcer due to type 2 diabetes mellitus 8302094131 100 E11.621 Onychomycosis 647506458 B35.1 [place] - lesion 972135690 L84 Cellulitis of right foot 6371874765 1840264 L03.115 Ingrowing nail of toe of right foot 0981865784 6631359 L60.0 Abscess of toe of right foot 1871980408 3624952 L02.155 [id number] TERRY CAGE DPM [facility] [address] [place] [address] 03/10/2022 09:09:57 03/15/2022 13:32:44 Ulcer of foot 34413648 L97.512 Ulcer of heel 550276690 L97.422 Cellulitis of foot 21336 6007 L03.119 Osteomyeli tis of ankle AND/OR foot 77463283 M86.679 Bilateral atherosclerosis of arteries of lower limbs 2865680711 6937706 I70.203 Diabetic p eripheral neuropathy 791425086 E11.42 Foot ulcer due to type 2 diabetes mellitus 7346096431 100 E11.621 Onychomycosis 037083791 B35.1 [place] - lesion 232281245 L84 Cellulitis of right foot 0124042973 9116809 L03.115 Abscess of toe of right foot 2590571299 9034765 L02.271 [id number] TERRY CAGE DPM [facility] [address] [place] [address] 03/24/2022 15:06:24 03/29/2022 09:37:13 Ulcer of foot 19291878 L97.512 Ulcer of heel 840197150 L97.422 Cellulitis of foot 82855 6007 L03.119 Osteomyeli tis of ankle AND/OR foot 22889238 M86.679 Bilateral atherosclerosis of arteries of lower limbs 8338936117 8215506 I70.203 Diabetic p eripheral neuropathy 790652401 E11.42 Foot ulcer due to type 2 diabetes mellitus 6756409797 100 E11.621 Onychomycosis 099958871 B35.1 [place] - lesion 898463497 L84 Cellulitis of right foot 4779399311 6945650 L03.566 [id number] SOURAV BREWER [facility] [address] [place] [address] 08/02/2022 15:36:33 08/08/2022 09:40:46 Type 2 diabetes mellitus 11464318 E11.9 Essential hypertension 31803253 I10 Retinopath y due to secondary diabetes mellitus 7568551241 57211 E08.319 Obesity 911393376 E66.9 HIV screening 172383426 Z11.4 Administra tion of pneumococcal vaccine 08796846 Z23 Hyperlipidemia 81290322 E78.5 [id number] SOURAV BREWER [facility] [address] [place] [address] 01/05/2023 12:04:58 01/05/2023 13:06:55 Hyperlipidemia 35381151 E78.5 Type 2 darien betes mellitus 35664484 E11.9 Essential hypertension 41197869 I10 Retinopath y due to secondary diabetes mellitus 2334130676 46802 E08.319 Obesity 327667260 E66.9 Diarrhea 18608064 R19.7 Screening for malignant neoplasm of colon 399483626 Z12.11 Uvular hypertrophy 58291 12358 23855 K13.79 [id number] TERRY CAGE DPM [facility] [address] [place] [address] 02/06/2023 09:27:38 02/14/2023 09:39:04 Cellulitis of foot 618117931 L03.116 Bilateral atherosclerosis of arteries of lower limbs 5308238373 0807118 I70.203 Diabetic p eripheral neuropathy 022397072 E11.42 Onychomycosis 624633927 B35.1 [place] - lesion 662072312 L84 Plantar fa scial fibromatosis 74490179 M72.2 Pain in left foot 800608 6663 12855 M79.672 Ingrowing nail 618620110 L60.0 Cellulitis and abscess of toe 803905580 L02.259 [id number] SOURAV BREWER [facility] [address] [place] [address] 02/06/2023 12:06:00 02/06/2023 12:32:45 Type 2 diabetes mellitus 09577276 E11.9 Screening colonoscopy 44 7443731 Z12.11 Administra tion of diphtheria, pertussis, and tetanus vaccine 784168084 Z23 Essential hypertension 24809750 I10 Depression screening 171 165773 Z13.31 Obesity 040505862 E66.9 [id number] Andrew Ellis MD [facility] [address] [place] [address] 03/06/2023 15:43:28 03/13/2023 15:21:20 Obstructive sleep apnea syndrome 86332574 G47.33 [id number] Pema Wong RN [facility] [address] [place] [address] 03/06/2023 15:44:33 03/16/2023 09:18:33 Screening for malignant neoplasm of colon 004884446 Z12.11 Diarrhea 36668302 R19.7 Health Concerns Section Related Observation LastModified by Organization Detai ls LastModified Time None Recorded Concern Status LastModified by Organization Details LastModified Time None Recorded Advance Directives Directive N: Payers Encounter Date Sequence Insurance Name Policy Number Policy Linda Covered Member ID Linda Member ID Guarantor Name 01/05/2023 1 [facility] (MEDICAID REPLACEMENT - HMO) [id number] Kain Montejo [id number] Kain Montejo 02/06/2023 1 [facility] (MEDICAID REPLACEMENT - HMO) [id number] Kain Montejo [id number] Kain Montejo 02/06/2023 1 [facility] ([facility]ICAID [facility]PLAC[facility] - HMO) [id number] Kain Montejo [id number] Kain Montejo 03/06/2023 1 [facility] (MEDICAID REPLACEMENT - HMO) [id number] Kain Montejo [id number] Kain Montejo 03/06/2023 1 [facility] (MEDICAID REPLACEMENT - HMO) [id number] Kain Montejo [id number] Kain Montejo Notes Date Note Type Note Provider Name and Address Organization Details Recorded Time 01/05/2023 text/html Kain is a 47 YO M pmhxz osteomyelitis, DM2 (controlled), HTN, obesity, PVD c/o of choking on that little thing that hangs on the back of my throat I can feel it on my tongue cardiology: follows Dr Carrera and was last seen in 12/2021. needs to schedule. He ran out of atenolol and xarelto from Cardio And has not been taking it. he sent him to have testing and stress test. All is stable. Does not check BP at home. 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 DM: Numbers have been >300. ran out of metformin Monday and trulicity around September. Currently injecting 27 units of insulin. eye exam: Seen at [facility] for laser treatment and injections on b/l eyes. next appointment May 2023. + retinopathy colonoscopy: they never called me He denies bloody stools. does have constant diarrea and when BM is formed it is thin like a straw denies cp, sob, palpitations SOURAV BREWER Attn: Accounting,[address] , [place], [address], [facility] 01/05/2023 13:00:07 02/06/2023 text/html Patient presents today for evaluation and treatment of nail deformities as well as generalized foot care. The patient states their nails are uncomfortable. The patient has been unable to provide self care due to the severe nature of the deformity and their medical condition(s). The patient is receiving medically necessary foot care in order to prevent further problems as well as to relieve irritation and discomfort. Patient relates a history of diabetes and cannot recall last blood glucose. Patient denies foot pain, states he has neuropathy, so he cannot feel pain to his feet. Patient states that he wears boots at work all day, denies working in damp conditions. Patient reports PCP office was notified that [facility] accepts the Community plan. TERRY CAGE DPM [address] [place], [address], [facility] 02/12/2023 15:48:04 02/06/2023 text/html Kain is a 47 YO M pmhxz osteomyelitis, DM2 (controlled), HTN, obesity, PVD cardiology: follows Dr Carrera and was last seen in 12/2021. needs to schedule. not checking BP at home. needs cuff. podiatry: per notes, he has cellulitits. DM: Numbers have been >200 once he ran out of [facility] .75mg. agrees to increase dose today. Currently injecting 23 units of insulin. eye exam: Seen at [facility] for laser treatment and injections on b/l eyes. next appointment May 2023. + retinopathy colonoscopy: they never called me He denies bloody stools. does have constant diarrea and when BM is formed it is thin like a straw denies cp, sob, palpitations SOURAV BREWER Attn: Accounting,[address] [facility], [place], [address], [facility] 02/06/2023 13:20:15 03/06/2023 text/html patient complaining of swelling of his uvula. He says that sometimes it swells and flops on his tongue. It is worse in the mornings seems to come and go. He does snore. He has never been tested for sleep apnea. He complains of nasal congestion drainage but that is unchanged over long period of time. Andrew Ellis MD [address], [place], [address], [facility] 03/06/2023 16:09:46 03/06/2023 text/html Patient with PMH x of diarrhea, HTN, foot callus, right foot ulcer, and retinopathy due to T2DM presents today for screening colonoscopy. No prior colonoscopy. No FH of colon cancer. No FH of other cancers. Patient does not smokes and drinks alcohol on occasion. Past surgical history includes toe amputation and left foot screw fixation. DOLLY BENJAMIN [address], [place], [address], [facility] 03/06/2023 17:04:36
--- OUTSIDE RECORDS SUMMARY | 2024-10-01 22:33 | XMS_ITS | Continuity of Care Document ---
Author Organization [place] - [facility] [employer] [facility] Address [address] [place] [address] Assessment No assessment recorded. Plan of Treatment Reminders Order Date Submit Date Provider Last Modified By Organization Details Last Modified Time Details Appointments None recorded. Lab PSA, total, serum or plasma [address] (Lab), [address] [place], [address], 08:00:23 glycohemogl obin, total, blood [address] (Lab), [address] [place], [address], 08:00:22 microalbumi n, urine [address] (Lab), [address] [place], [address], 4 08:07:41 noninvasive colorectal cancer DNA + occult blood screening, QL, stool 2023 [address] [place] [address] [place] (Cologuard Orders Only), [address], [address], [place], [address], 4 08:07:40 CBC w/ auto diff 2023 024 [facility] [address] [place], [address], 4 17:40:38 CMP, serum or plasma 2023 024 [facility] (Lab), [address] [place], [address], 05:33:30 lipid panel, serum [address] (Lab), [address] [place], [address], 08:00:22 TSH, serum or plasma [address] (Lab), [address] [place], [address], 08:00:23 Referral None recorded. Procedures None recorded. Surgeries None recorded. Imaging None recorded. Medication Orders metformin ER 500 mg tablet,exte nded release 24 hr 2023 [facility], [address] [place], [address], 4 10:34:10 Ozempic 0.25 mg or 0.5 mg (2 mg/3 mL) subcutaneou s pen injector 2023 [facility], [facility] [place], [address], 10:34:09 Patient TargetsNo targets recorded. Patient InstructionsNo instructions recorded. Reason for Referral None Reported. Results Created Date Observation Date Name Description Value Unit Range Abnormal Flag Note LastModifiedBy Organization Detail LastModifiedTime 08/21/20 24 08/21/2024 MRI, ankle , w/ contr ast No observ ation record ed. [address], [address], 08/21/2024 11:37:26 08/28/20 24 08/28/2024 XR, chest No observ ation record ed. [address] [place], [address], 08/28/2024 12:58:48 09/02/20 24 08/20/2024 , doppl er echoc ardio gram No observ ation record ed. [email or web address] Not Available 2023 12:51:33 Result Notes None recorded. Problems Name Problem SNOMED Code Status Onset Date Resolution Date Notes Provider Name and Address Organization Details Recorded Time Uncontrolled type 2 diabetes mellitus 269523674 Active 2023 [facility] [address] [facility], [address], [place], [address], [employer] 4 10:27:20 Essential hypertension 54859124 Active 2023 CARY He[facility]ia [address] [facility], [address], [place], [address], [employer] 4 10:28:42 Iron deficiency anemia 46596777 Active 2023 [facility] [address] [facility], [address], [place], [address], [employer] 4 08:55:42 Problem Notes None recorded. Procedures Surgical History Date Name Laterality Status Provider Name and Address Organization Details Recorded Time 1 Amputation of toe completed Tessa Armstrong RN [facility] 07/02/2024 10:10:06 2 fixation of fracture using screws completed Tessa Armstrong RN [facility] 07/02/2024 10:09:49 Imaging Results None recorded. Procedure [...] and Address Organization Details Last Updated DateTime 859112. 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 Yes Removal Of Part Of Right Foot Information not available 07/02/2024 Are There Any Guns Present In Your Home? Yes Information not available 07/02/2024 Do You Use Insect Repellent Routinely? No Information not available 07/02/2024 Where Do You Live? [facility] Information not available 07/02/2024 Do You Have A Medical Power Of Foxer? No Information not available 07/02/2024 How Many [...] Anxious, Or Unable To Sleep At Night)? [id number] Information not available 07/02/2024 Do You Use [...] available 2023 10:09:06 Medical History Condition Response DIABETES, TYPE Y OBESITY Y HYPERTENSION Y Past Encounters Encounter ID Performer Location Encounter Start Date Encounter Closed Date Diagnosis/Indication Diagnosis SNOMED-CT Code Diagnosis ICD10 Code [id number] [facility] [address] [address] 07/02/2024 09:57:44 07/02/2024 11:24:32 Adult health examination 731780529 Z00.00 Uncontroll ed type 2 diabetes mellitus 197307429 E11.649 Essential hypertension 22368201 I10 Screening for malignant neoplasm of colon 926110081 Z12.11 Screening for malignant neoplasm of prostate 094707148 Z12.5 Health Concerns Section Related Observation LastModified by Organization Detai ls LastModified Time None Recorded Concern Status LastModified by Organization Details LastModified Time None Recorded Payers Encounter Date Sequence Insurance Name Policy Number Policy Linda Covered Member ID Linda Member ID Guarantor Name 07/02/2024 1 [place] DEPARTMENT OF PUBLIC AID Kain Montejo [id number] Kain Montejo Notes Date Note Type Note [...] This surgery was by Dr. Jauregui at [facility]. States that he checks his sugars daily, usually in 200s. States while hospitalized A1C was 13.?Previously took metformin and Ozempic, had to stop due to insurance changes History of hypertension, is taking losartan 50- HCTZ 12.5 mg. BP on arrival 170/110, does not know what home BP looked like. Flu shot: declinesCOVID vaccines: x2Tdap: recommendedColonosc opy: cologuard ordered [facility] [address] [facility], [facility] [address], [place], [address], [facility] 07/02/2024 11:21:13
[2024-10-10 15:25] LABS: Hematocrit 35.1 % (42.0-52.0); Hemoglobin 11.1 g/dL (14.0-18.0); Mean Corpuscular HGB Conc 31.6 g/dl (32-36); Mean Corpuscular Hemoglobin 25.6 pg (26-34); Mean Corpuscular Volume 80.9 fl (80-100); Mean Platelet Volume 9.2 fl (7.4-10.4); Platelet Count Result 374 k/mm3 (150-375); Red Blood Count 4.34 M/mm3 (4.6-6.20); Red Cell Distribution Width 15.2 % (11.5-14.5); White Blood Count 7.1 K/mm3 (4.5-10.0)
[2024-10-10 15:39] LABS: Alanine Aminotransferase 17 U/L (6-50); Albumin Level 3.7 g/dL (3.5-5.1); Alkaline Phosphatase 97 U/L (38-126); Anion Gap 10 mmol/L (4-12); Aspartate Amino Transferase 19 U/L (17-59); Bilirubin,Total 0.6 mg/dL (0.2-1.3); Blood Urea Nitrogen 30 mg/dL (9-20); Calcium 8.7 mg/dL (8.4-10.2); Carbon Dioxide 25 mmol/L (22-30); Chloride 106 mmol/L (98-107); Estimated Glomerular Filt Rate 44; Glucose 111 mg/dL (65-110); Potassium 3.9 mmol/L (3.4-5.0); Sodium 141 mmol/L (137-145)
== END 2024-12-23 23:59 | disposition home or self-care (01) ==
LOC: HOME HLTH 14:46
DX: M86.171 Other acute osteomyelitis, right ankle and foot (principal); E11.42 Type 2 diabetes mellitus with diabetic polyneuropathy; M00.9 Pyogenic arthritis, unspecified
CPT/HCPCS: 36415; 80053; 85027

== ENCOUNTER 2024-11-13 07:06 | Outpatient (RCR) | payer OTHER, SELFPAY ==
--- NOTE | 2024-08-20 09:31 | PM.IMHP ---
H&P: HPI History of Present Illness Date/Time: 08/20/24 09:31 Chief Complaint: right foot wound/right ankle pain Narrative: 48-year-old male known to the Orthopedic Service for a previous left 5th ray amputation by Dr. Ladd in 2020. We have now been asked to see the patient for a right foot infection which has been managed by General surgery since early June. On June 08 the patient had a right TMA of the 2nd toe by Dr. Jauregui. He was discharged from the hospital and followed up as an outpatient on June 17, July 04, and July 25 for wound care and post op monitoring. He return to the emergency room on August 08 with complaints of nausea, vomiting and right ankle pain. He was evaluated by general surgery during this hospitalization. His wound showed improvement over the [address] scan of the right ankle was performed on 08/08 and revealed widespread soft tissue edema without a rim-enhancing fluid collection or gas within the soft tissues. An addendum was performed by Dr. Lan on this CT scan on 08/09 which revealed erosions of the lateral aspect of the anterior calcaneus with adjacent ill-defined incomplete rim of enhancing soft tissue measuring 14 mm, consistent with osteomyelitis and adjacent phlegmon versus early abscess. Blood cultures and wound cultures were obtained during this hospitalization. He was discharged on 08/09 with a follow-up with Dr. Jauregui on 08/15 in the outpatient wound clinic. It was at this time, on 08/15, that Dr. Jauregui requested orthopedic evaluation for chronic wound and ankle pain with concerns for osteomyelitis. The patient was scheduled for an appointment in the [facility] wound clinic on 08/20 with the orthopedic service. Upon chart review today prior to physical exam, it appears the wound cultures resulted on 08/11 and were interpreted by the hospitalist service to be staph +. Wound cultures also reveal Staph and group B strep. Per the patient, he has not had follow-up blood cultures since 08/11 and has not been on IV antibiotics or oral antibiotics since the time of discharge on 08/10. He continues to experience nausea and vomiting. He is unable to keep fluids down. He generally feels unwell and has chills and night sweats. His blood glucose levels have been well controlled. He continues to suffer from severe right ankle pain and inability to flex and extend the right ankle. Review of Systems Review of Systems: All systems reviewed & are unremarkable except as noted in HPI and below PMFSH Past Medical History Medical History (Updated 08/20/24 @ 09:45 by CARY Almanzar) Bacteremia Diabetic peripheral neuropathy Erectile dysfunction associated with type 2 diabetes mellitus Glaucoma Obesity (BMI 30.0-34.9) Osteomyelitis of toe of left foot (2020) Left 5th toe Type 2 diabetes mellitus (~04/2021) Officially diagnosed in 2020 but patient already had a foot wound and osteomyelitis of the left toe at that time Ulcer of left fifth toe due to diabetes mellitus (04/2021) With associated cellulitis Surgical History Surgical History History of amputation of toe Left 5th toe History of ankle surgery Family History Family History Father Acute myocardial infarction, Onset Age: 62 Heart disease Tobacco use Mother , She in her 70s Brain cancer Lung cancer Carcinoma of colon Grandparent Diabetes mellitus Other Arthritis Hypertension Neuropathy Stomach cancer Social History Social History Social History: Patient is single and lives alone. He states he has never been . Patient works for a [employer]. He has his (non biologic) son part-time. He is a lifelong nonsmoker. He denies history of significant alcohol use or illicit substance use. Code status: DNR/DNI (per patient request) Surrogate decision maker: Sole Farnsworth (niece) Smoking status: Never smoker Second hand tobacco smoke exposure: No Alcohol intake: never Substance use: never Substance use type: does not use Do You Feel Safe in your Home?: Yes Lack of Transportation: No Lack of Food: Never True Current Housing: I Have Housing Concerned About Future Housing: No Difficulty Paying Gas/Electric Bills: No Difficulty Paying for Meds: No Currently Unemployed: No Education: High School Diploma/GED Difficulty w/ Childcare or Family Care: No Living arrangements: alone Additional living arrangements comments: 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 Occupation/Education: occupation 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 Gender identity (if verbalized by the patient): Male Spiritual care concerns: No Meds Home Medications and Allergies Home Medications Medication Instructions Recorded Confirmed Type losartan 50 mg-hydrochlorothiazide 1 tablet PO DAILY #90 tabs 06/13/24 08/15/24 Rx 12.5 mg tablet insulin human U-100 NPH-regulr 15 unit subcut BID 08/08/24 08/15/24 History 70-30 mix 100 unit/mL subcutaneous susp (Novolin 70/30 U-100 Insulin) metformin 500 mg tablet,extended 500 mg PO BID 08/08/24 08/15/24 History release 24 hr semaglutide 0.25 mg or 0.5 mg (2 0.25 mg subcut WEEKLY 08/08/24 08/15/24 History mg/3 mL) subcutaneous pen injector (Ozempic) Allergies Allergy/AdvReac Type Severity Reaction Status Date / Time No Known Allergies Allergy Verified 08/08/24 19:10 Exam Const: General: alert, awake, ill appearing (pale ), tired appearing and well nourished Orientation/consciousness: patient oriented x3 Limitations: no limitations HENMT: Head: normal to inspection Ears: hearing grossly normal bilaterally Face/Nose/Sinus: Normal external nose present Face and sinus: normal facial exam Neck: Neck: normal visual inspection Extrem: Right lower extremity: ankle Details: tenderness Location: of the lateral malleolus and of the medial malleolus, swelling Details: laterally and posteriorly, abnormal ROM Details: pain with active ROM Details: with plantar flexion and with dorsiflexion and pain with passive ROM Details: with plantar flexion and with dorsiflexion, warmth and other (redness, laterally ); no ecchymosis and foot ( 2nd toe amputation) Details: abnormal to inspection, vascular exam Details: dorsalis pedis pulse present ( With Doppler), posterior tibial pulse present ( with Doppler) and abnormal capillary refill Location: of all toes, motor-sensory exam Details: light-touch abnormal and other ( see wound assessment below); abnormal capillary refill Other: wound on the dorsal lateral aspect of the right foot measures 4 x 8.5 x 1.5 cm, 100% red/ pink wound bed with hyper granulated tissue noted. Additional wound at the side of the 2nd toe amputation measures 3.5 x 1 x 0.3 cm, 100% red/ pink wound bed with hyper granulated tissue. Unable to probe to bone at either site site of wound. Mild malodorous. Psych: Appearance: well kempt Mental Status: mental status grossly normal Assessment and Plan Assessment and plan (1) Bacteremia: Code(s): R78.81 - Bacteremia Status: Acute Assessment and Plan: Blood cultures from hospital admission on 08/08 revealed Staph. Wound cultures from 08/08 are positive for Staph and group B strep. Patient has not been on IV or oral antibiotics. He denies follow-up or repeat blood cultures. He reports chills, night sweats, nausea and vomiting and inability to keep liquids down. Given recent blood cultures, CT scan addendum from 08/09 and persistent right ankle pain, recommended admission to the hospital for further evaluation. Hospitalist service contacted and presented to the Wound Clinic for patient evaluation. Agrees with admission for further workup and possible IV antibiotics. Patient and family agree with plan of care. See orthopedic consult for further details/recommendations. (2) Acute right ankle pain: Code(s): M25.571 - Pain in right ankle and joints of right foot Status: Acute Assessment and Plan: Right ankle pain with inability to flex and extend without severe pain. Here the mend id over the anterior lateral aspect of the ankle. Wounds noted as well. Patient will benefit from MRI of the right ankle upon admission to the hospital. See orthopedic consult note for details/recommendations. (3) Nausea: Code(s): R11.0 - Nausea Status: Acute Assessment and Plan: Three week history of nausea and vomiting with inability to keep fluids down. Patient reports well-maintained blood glucose levels. Hypotensive on exam today with elevated heart rate. Afebrile. History of recent positive blood cultures. Admission to the hospital for further evaluation. (4) Diabetes mellitus: Qualifiers: Diabetes mellitus complication detail: with other skin complication Diabetes mellitus complication status: with skin complications Diabetes mellitus correction insulin use: with correction use Diabetes mellitus type: type 2 Qualified Code(s): E11.628 - Type 2 diabetes mellitus with other skin complications; Z79.4 - tank terminal gauger (current) use of insulin Code(s): E11.9 - Type 2 diabetes mellitus without complications Status: Acute (5) Amputated toe of right foot: Code(s): S98.131A - Complete traumatic amputation of one right lesser toe, initial encounter Status: Acute Assessment and Plan: History of right 2nd toe amputation. Wound appears stable. Hypergranulation noted. Unable to probe to bone. Decreased sensation in the right lower extremity. Doppler pedal pulses. Continue daily dressing changes at this time. We will determine further plan of care pending further workup as an inpatient. See orthopedic consult for further details.
[2024-08-20 11:57] VITALS: BP 90/64; PULSE 115; TEMP 36.1; O2SAT 98
--- NOTE | 2024-09-13 08:47 | PM.PNORT ---
Subjective Subjective Date/Time Seen: 09/13/24 08:47 Objective Data Meds/Results Medications: Active Medications Generic Name Dose Route Start Last Admin Trade Name Freq PRN Reason Stop Dose Admin Silver Nitrate 1 each 08/15/24 08:45 Silver Nitrate (*Sp) Stick TOPICAL 11/15/24 23:55 PRN PRN Wound Care
--- NOTE | 2024-09-13 15:12 | PM.IMHP ---
H&P: HPI History of Present Illness Date/Time: 09/13/24 15:12 Chief Complaint: Right foot wound Narrative: 48-year-old male follows up in the [facility] wound clinic for re-evaluation status post hospitalization and I and D of the right 2nd toe amputation with ankle wound and wound VAC application by Dr. Reinoso. Patient is now being followed by myself and Dr. Ladd. He is on IV antibiotics as directed by his primary care provider and has home health for wound VAC dressing changes and home infusion. No new concerns today. Tolerating wound VAC well. Review of Systems Review of Systems: All systems reviewed & are unremarkable except as noted in HPI and below PMFSH Past Medical History Medical History Bacteremia Erectile dysfunction associated with type 2 diabetes mellitus Obesity (BMI 30.0-34.9) Diabetic peripheral neuropathy Osteomyelitis of toe of left foot (2020) Left 5th toe Type 2 diabetes mellitus (~04/2021) Officially diagnosed in 2020 but patient already had a foot wound and osteomyelitis of the left toe at that time Ulcer of left fifth toe due to diabetes mellitus (04/2021) With associated cellulitis Glaucoma Surgical History Surgical History History of amputation of toe Left 5th toe History of ankle surgery Family History Family History Father Acute myocardial infarction, Onset Age: 62 Heart disease Tobacco use Mother , She in her 70s Brain cancer Lung cancer Carcinoma of colon Grandparent Diabetes mellitus Other Arthritis Hypertension Neuropathy Stomach cancer Social History Social History Social History: Patient is single and lives alone. He states he has never been . Patient works for a local [employer]. He has his (non biologic) son part-time. He is a lifelong nonsmoker. He denies history of significant alcohol use or illicit substance use. Code status: DNR/DNI (per patient request) Surrogate decision maker: Sole Javad (niece) Smoking status: Never smoker Second hand tobacco smoke exposure: No Alcohol intake: never Substance use: never Substance use type: does not use Do You Feel Safe in your Home?: Yes Lack of Transportation: No Lack of Food: Never True Current Housing: I Have Housing Concerned About Future Housing: No Difficulty Paying Gas/Electric Bills: No Difficulty Paying for Meds: No Currently Unemployed: No Education: High School Diploma/GED Difficulty w/ Childcare or Family Care: No Living arrangements: alone Additional living arrangements comments: Son lives with him 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 department manager Occupation/Education: occupation Additional occupation/education comments: [employer] Gender identity (if verbalized by the patient): Male Spiritual care concerns: No Meds Home Medications and Allergies Home Medications ?Medication ?Instructions ?Recorded ?Confirmed ?Type losartan 50 mg-hydrochlorothiazide 1 tablet PO DAILY #90 tabs 06/13/24 08/20/24 Rx 12.5 mg tablet insulin human U-100 NPH-regulr 15 unit subcut BID 08/08/24 08/20/24 History 70-30 mix 100 unit/mL subcutaneous susp (Novolin 70/30 U-100 Insulin) metformin 500 mg tablet,extended 500 mg PO BID 08/08/24 08/20/24 History release 24 hr semaglutide 0.25 mg or 0.5 mg (2 0.25 mg subcut WEEKLY 08/08/24 08/20/24 History mg/3 mL) subcutaneous pen injector (Ozempic) Allergies Allergy/AdvReac Type Severity Reaction Status Date / Time No Known Allergies Allergy Verified 08/23/24 09:35 Exam Const: General: alert and awake Orientation/consciousness: patient oriented x3 Limitations: no limitations Extrem: Right lower extremity: ankle Details: tenderness Location: of the lateral malleolus and of the medial malleolus, swelling Details: laterally and posteriorly, abnormal ROM Details: pain with active ROM Details: with plantar flexion and with dorsiflexion and pain with passive ROM Details: with plantar flexion and with dorsiflexion, warmth and other (redness, laterally ); no ecchymosis and foot ( 2nd toe amputation) Details: abnormal to inspection, vascular exam Details: abnormal capillary refill Location: of all toes; dorsalis pedis pulse absent and posterior tibial pulse absent and motor-sensory exam Details: light-touch abnormal; abnormal capillary refill Other: Wound on the dorsal lateral aspect of the right foot with wound VAC in place. Wound VAC dressing removed today. Erythema to the right lateral ankle significantly improved. Additional wound at the side of the 2nd toe amputation improved. No malodor. Wound depth 2.6 cm at the sinus tarsi. Minimal serous drainage. Remainder of wound with 100% granulation tissue. No slough. Wound VAC dressing to be changed MWF. Psych: Mental Status: mental status grossly normal Assessment and Plan Assessment and plan (1) Septic arthritis of ankle and foot region: Code(s): M00.9 - Pyogenic arthritis, unspecified Status: Acute Assessment and Plan: 3 status post I and D of a right ankle and 2nd ray amputation as done by Dr. Reinoso. Patient was discharged from the hospital on home IV infusion. He also has a wound VAC in place the knee is tolerating this well. Wound with notable improvement. No signs of worsening infection. Some swelling noted however this is likely due to increased activity status post discharge from hospital. Ten UIV antibiotics. Continue wound VAC. Follow up in 1 week for re-evaluation. Patient may eventually require return to the operating room for graft application. (2) Amputated toe of right foot: Code(s): S98.131A - Complete traumatic amputation of one right lesser toe, initial encounter Status: Acute (3) Acute right ankle pain: Code(s): M25.571 - Pain in right ankle and joints of right foot Status: Acute (4) Bacteremia: Code(s): R78.81 - Bacteremia Status: Acute (5) Necrotizing fasciitis of lower leg: Code(s): M72.6 - Necrotizing fasciitis Status: Acute (6) Osteomyelitis of right foot: Qualifiers: Osteomyelitis type: other acute Qualified Code(s): M86.171 - Other acute osteomyelitis, right ankle and foot Code(s): M86.9 - Osteomyelitis, unspecified Status: Acute
--- NOTE | 2024-09-20 09:31 | P.CONOP_ITS ---
Assessment and Plan Assessment and plan (1) Septic arthritis of ankle and foot region: Code(s): M00.9 - Pyogenic arthritis, unspecified Status: Acute Assessment and Plan: 4 weeks status post I and D of a right ankle and 2nd ray amputation. Patient was discharged from the hospital on home IV infusion. wound VAC in place, tolerating this well with home health assistance for dressing changes. Overall dimensions of the wound per Wound Clinic note. Wound with notable improvement. No signs of worsening infection. 3/6 weeks of IV antibiotics. Continue wound VAC. Follow up in 1 week for re-evaluation. discussed application of approved grafts in the wound clinic. Wound clinic attempting authorization. (2) Amputated toe of right foot: Code(s): S98.131A - Complete traumatic amputation of one right lesser toe, initial encounter Status: Acute (3) Acute right ankle pain: Code(s): M25.571 - Pain in right ankle and joints of right foot Status: Acute (4) Bacteremia: Code(s): R78.81 - Bacteremia Status: Acute (5) Necrotizing fasciitis of lower leg: Code(s): M72.6 - Necrotizing fasciitis Status: Acute (6) Osteomyelitis of right foot: Qualifiers: Osteomyelitis type: other acute Qualified Code(s): M86.171 - Other acute osteomyelitis, right ankle and foot Code(s): M86.9 - Osteomyelitis, unspecified Status: Acute History of Present Illness HPI Consult date: 09/20/24 Requesting physician: Johan Jauregui MD Chief complaint: right foot diabetic ulcer Narrative: Follow-up appointment [facility]. Wound VAC to right foot. Patient removed last night and place dressing due to incomplete seal. Continues with IV antibiotics. No other complaints. 4 weeks now status post debridement. Review of Systems Constitutional: Constitutional: Denies chills and Denies fever(s) Eyes: Eyes: Reports no additional eye complaints and Denies change in vision ENT: Reports system reviewed and no additional complaints, except as documented and Reports Normal hearing present Cardiovascular: Cardiovascular: Denies chest pain, Denies diaphoresis, Denies leg ulcers and Denies dyspnea on exertion Respiratory: Respiratory: Reports no additional respiratory complaints, Denies cough and Denies dyspnea on exertion Gastrointestinal: Gastrointestinal: Reports no additional gastrointestinal complaints, Denies abdominal pain, Denies constipation, Denies nausea and Denies vomiting Genitourinary: Genitourinary: Reports no additional male genitourinary complaints, Denies hematuria and Denies urinary frequency Musculoskeletal: Musculoskeletal: Reports no additional musculoskeletal complaints and Reports as per HPI Integumentary/Breasts: Skin/Breast: Reports as per HPI, Reports lesions, Reports new lesions and Reports skin ulcer Neurologic: Reports Normal hearing present Endocrine: Endocrine: Reports no additional endocrine complaints, Denies change in body appearance, Denies excessive sweating, Denies polyphagia, Denies polydipsia and Denies polyuria [facility] Past Medical History Medical History Bacteremia Erectile dysfunction associated with type 2 diabetes mellitus Obesity (BMI 30.0-34.9) Diabetic peripheral neuropathy Osteomyelitis of toe of left foot (2020) Left 5th toe Type 2 diabetes mellitus (~04/2021) Officially diagnosed in 2020 but patient already had a foot wound and osteomyelitis of the left toe at that time Ulcer of left fifth toe due to diabetes mellitus (04/2021) With associated cellulitis Glaucoma Surgical History Surgical History History of amputation of toe Left 5th toe History of ankle surgery Family History Family History Father Acute myocardial infarction, Onset Age: 62 Heart disease Tobacco use Mother , She in her 70s Brain cancer Lung cancer Carcinoma of colon Grandparent Diabetes mellitus Other Arthritis Hypertension Neuropathy Stomach cancer Social History Social History Social History: Patient is single and lives alone. He states he has never been . Patient works for a [employer]. He has his (non biologic) son part-time. He is a lifelong nonsmoker. He denies history of significant alcohol use or illicit substance use. Code status: DNR/DNI (per patient request) Surrogate decision maker: Sole Farnsworth (niece) Smoking status: Never smoker Second hand tobacco smoke exposure: No Alcohol intake: never Substance use: never Substance use type: does not use Do You Feel Safe in your Home?: Yes Lack of Transportation: No Lack of Food: Never True Current Housing: I Have Housing Concerned About Future Housing: No Difficulty Paying Gas/Electric Bills: No Difficulty Paying for Meds: No Currently Unemployed: No Education: High School Diploma/GED Difficulty w/ Childcare or Family Care: No Living arrangements: alone Additional living arrangements comments: 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 Occupation/Education: occupation Additional occupation/education comments: [employer] Gender identity (if verbalized by the patient): Male Spiritual care concerns: No Meds Home Medications and Allergies Home Medications ?Medication ?Instructions ?Recorded ?Confirmed ?Type losartan 50 mg-hydrochlorothiazide 1 tablet PO DAILY #90 tabs 06/13/24 08/20/24 Rx 12.5 mg tablet insulin human U-100 NPH-regulr 15 unit subcut BID 08/08/24 08/20/24 History 70-30 mix 100 unit/mL subcutaneous susp (Novolin 70/30 U-100 Insulin) metformin 500 mg tablet,extended 500 mg PO BID 08/08/24 08/20/24 History release 24 hr semaglutide 0.25 mg or 0.5 mg (2 0.25 mg subcut WEEKLY 08/08/24 08/20/24 History mg/3 mL) subcutaneous pen injector (Ozempic) Allergies Allergy/AdvReac Type Severity Reaction Status Date / Time No Known Allergies Allergy Verified 08/23/24 09:35 Exam Const: General: alert and awake Orientation/consciousness: patient oriented x3 Limitations: no limitations Extrem: Right lower extremity: ankle Details: tenderness Location: of the lateral malleolus and of the medial malleolus, swelling Details: laterally and posteriorly, abnormal ROM Details: pain with active ROM Details: with plantar flexion and with dorsiflexion and pain with passive ROM Details: with plantar flexion and with dorsiflexion, warmth and other (redness, laterally ); no ecchymosis and foot ( 2nd toe amputation) Details: abnormal to inspection, vascular exam Details: abnormal capillary refill Location: of all toes; dorsalis pedis pulse absent and posterior tibial pulse absent and motor-sensory exam Details: light-touch abnormal; abnormal capillary refill Other: Wound on the dorsal lateral aspect of the right foot, dressing removed today. Erythema to the right lateral ankle significantly improved. Additional wound at the side of the 2nd toe amputation Now fully healed. Wound depth 2.4 cm at the sinus tarsi. serous drainage. improved granulation tissue over the sinus tarsi. Remainder of wound with 100% granulation tissue. No slough. Psych: Mental Status: mental status grossly normal Results Labs Labs: All other labs normal.
--- NOTE | 2024-10-04 13:15 | W.PM.PROC2 ---
Procedure Note - Detailed Date of Procedure 10/04/24 Pre-op Diagnosis right foot diabetic ulcer Post-op Diagnosis Same Procedure Performed Excisional debridement of right foot diabetic ulcer including muscle layer. Ulcer measures 10 by 3.5 x 2 cm. Application of synthetic graft. Surgeon Akbar Ladd MD Anesthesia General Indications 49-year-old with diabetic ulcer of the right foot. Presents to the Wound Clinic. Indicated for debridement with graft application for non Healing wound. Findings wound mentions 10.3 x 3.5 x 3 cm Description of Procedure informed consent given. Foot sterilized with alcohol prep solution. Debridement performed with scalpel, pickup and curette. Skin, subcutaneous tissue and muscle sharply excised and debrided from the wound and passed off. Viable tissue and granulation tissue left in place. Debridement of the deep portion extending to the sinus tarsi performed. Next, graft reconstituted with saline on the back table. Graph then applied to the wound and wound depth. Sterile dressing and wound VAC applied. Implants Synthetic graft 38 sq cm, lot number [id number] X Estimated Blood Loss 3 Tourniquet Time Total Tourniquet Time: 0 Drains No Packing Yes Pathology None sent Complications None Condition Stable Disposition Same day [facility] Billing Surgery - Charge Forward: Surgery Billing ([id number], [id number])
--- NOTE | 2024-10-04 13:19 | P.HP_ITS ---
H&P: HPI History of Present Illness Date/Time: 10/04/24 08:39 Chief Complaint: Right foot wound Narrative: 48-year-old male follows up in the [place] wound clinic for re-evaluation status post hospitalization and I and D of the right 2nd toe amputation with ankle wound and wound VAC application by Dr. Reinoso. He is on IV antibiotics as directed by his primary care provider and has home health for wound VAC dressing changes and home infusion. 1 more week of IV antibiotics scheduled. No new concerns today. Tolerating wound VAC well. Increased drainage and nonhealing wound noted. [facility], [facility] Past Medical History Medical History Bacteremia Erectile dysfunction associated with type 2 diabetes mellitus Obesity (BMI 30.0-34.9) Diabetic peripheral neuropathy Osteomyelitis of toe of left foot (2020) Left 5th toe Type 2 diabetes mellitus (~04/2021) Officially diagnosed in 2020 but patient already had a foot wound and osteomyelitis of the left toe at that time Ulcer of left fifth toe due to diabetes mellitus (04/2021) With associated cellulitis Glaucoma Surgical History Surgical History History of amputation of toe Left 5th toe History of ankle surgery Family History Family History Father Acute myocardial infarction, Onset Age: 62 Heart disease Tobacco use Mother , She in her 70s Brain cancer Lung cancer Carcinoma of colon Grandparent Diabetes mellitus Other Arthritis Hypertension Neuropathy Stomach cancer Social History Social History Social History: Patient is single and lives alone. He states he has never been . Patient works for a [employer]. He has his (non biologic) son part-time. He is a lifelong nonsmoker. He denies history of significant alcohol use or illicit substance use. Code status: DNR/DNI (per patient request) Surrogate decision maker: Sole Farnsworth (niece) Smoking status: Never smoker Second hand tobacco smoke exposure: No Alcohol intake: never Substance use: never Substance use type: does not use Do You Feel Safe in your Home?: Yes Lack of Transportation: No Lack of Food: Never True Current Housing: I Have Housing Concerned About Future Housing: No Difficulty Paying Gas/Electric Bills: No Difficulty Paying for Meds: No Currently Unemployed: No Education: High School Diploma/GED Difficulty w/ Childcare or Family Care: No Living arrangements: alone Additional living arrangements comments: 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 Occupation/Education: occupation Additional occupation/education comments: [employer] Gender identity (if verbalized by the patient): Male Spiritual care concerns: No Meds Home Medications and Allergies Home Medications ?Medication ?Instructions ?Recorded ?Confirmed ?Type losartan 50 mg-hydrochlorothiazide 1 tablet PO DAILY #90 tabs 06/13/24 08/20/24 Rx 12.5 mg tablet insulin human U-100 NPH-regulr 15 unit subcut BID 08/08/24 08/20/24 History 70-30 mix 100 unit/mL subcutaneous susp (Novolin 70/30 U-100 Insulin) metformin 500 mg tablet,extended 500 mg PO BID 08/08/24 08/20/24 History release 24 hr semaglutide 0.25 mg or 0.5 mg (2 0.25 mg subcut WEEKLY 08/08/24 08/20/24 History mg/3 mL) subcutaneous pen injector (Ozempic) Allergies Allergy/AdvReac Type Severity Reaction Status Date / Time No Known Allergies Allergy Verified 08/23/24 09:35 Exam Const: General: alert and awake Orientation/consciousness: patient oriented x3 Limitations: no limitations Extrem: Right lower extremity: ankle Details: tenderness Location: of the lateral malleolus and of the medial malleolus, swelling Details: laterally and posteriorly, abnormal ROM Details: pain with active ROM Details: with plantar flexion and with dorsiflexion and pain with passive ROM Details: with plantar flexion and with dorsiflexion, warmth and other (redness, laterally ); no ecchymosis and foot ( 2nd toe amputation) Details: abnormal to inspection, vas cular exam Details: abnormal capillary refill Location: of all toes; dorsalis pedis pulse absent and posterior tibial pulse absent and motor-sensory exam Details: light-touch abnormal; abnormal capillary refill Other: Wound on the dorsal lateral aspect of the right foot, dressing removed today. Erythema to the right lateral ankle significantly improved. Additional wound at the side of the 2nd toe amputation Now fully healed. Wound depth 3 cm at the sinus tarsi. Wound length 10.3 cm, width 3.5 cm. serous drainage. improved granulation tissue over the sinus tarsi. Remainder of wound with 100% granulation tissue. No slough. Psych: Mental Status: mental status grossly normal Assessment and Plan Assessment and plan (1) Septic arthritis of ankle and foot region: Code(s): M00.9 - Pyogenic arthritis, unspecified Status: Acute Assessment and Plan: 6 weeks status post I and D of right ankle and 2nd ray amputation. Patient was discharged from the hospital on home IV infusion. wound VAC in place, tolerating this well with home health assistance for dressing changes. Overall dimensions of the wound per Wound Clinic note. No signs of worsening infection. 5/6 weeks of IV antibiotics. Continue wound VAC. Follow up in 1 week for re-evaluation Possible re-application of graft.. Patient scheduled to complete IV antibiotics next week. Labs done previously reviewed with the patient. Normal white count. Indicated for debridement and application of graft today for nonhealing wound. Performed without difficulty. Wound VAC reapplied. May follow-up in the wound clinic for wound VAC problems, otherwise re-evaluation in 1 week for possible re-application of graft. (2) Amputated toe of right foot: Code(s): S98.131A - Complete traumatic amputation of one right lesser toe, initial encounter Status: Acute (3) Acute right ankle pain: Code(s): M25.571 - Pain in right ankle and joints of right foot Status: Acute (4) Bacteremia: Code(s): R78.81 - Bacteremia Status: Acute (5) Necrotizing fasciitis of lower leg: Code(s): M72.6 - Necrotizing fasciitis Status: Acute (6) Osteomyelitis of right foot: Qualifiers: Osteomyelitis type: other acute Qualified Code(s): M86.171 - Other acute osteomyelitis, right ankle and foot Code(s): M86.9 - Osteomyelitis, unspecified Status: Acute
--- NOTE | 2024-10-11 08:42 | PM.IMHP ---
H&P: HPI History of Present Illness Date/Time: 10/11/24 08:42 Chief Complaint: Right foot wound Narrative: 48-year-old male follows up in the [facility] wound clinic for re-evaluation status post hospitalization and I and D of the right 2nd toe amputation with ankle wound and wound VAC application by Dr. Reinoso. He is on IV antibiotics as directed by his primary care provider and has home health for wound VAC dressing changes and home infusion. He has completed IV antibiotics. No new concerns today. Tolerating wound VAC well. Increased drainage and nonhealing wound noted. Review of Systems Constitutional: Constitutional: Denies chills and Denies fever(s) Eyes: Eyes: Reports no additional eye complaints and Denies change in vision ENT: Reports system reviewed and no additional complaints, except as documented and Reports Normal hearing present Cardiovascular: Cardiovascular: Denies chest pain, Denies diaphoresis, Denies leg ulcers and Denies dyspnea on exertion Respiratory: Respiratory: Reports no additional respiratory complaints, Denies cough and Denies dyspnea on exertion Gastrointestinal: Gastrointestinal: Reports no additional gastrointestinal complaints, Denies abdominal pain, Denies constipation, Denies nausea and Denies vomiting Genitourinary: Genitourinary: Reports no additional male genitourinary complaints, Denies hematuria and Denies urinary frequency Musculoskeletal: Musculoskeletal: Reports no additional musculoskeletal complaints and Reports as per HPI Integumentary/Breasts: Skin/Breast: Reports as per HPI, Reports lesions, Reports new lesions and Reports skin ulcer Neurologic: Reports Normal hearing present Endocrine: Endocrine: Reports no additional endocrine complaints, Denies change in body appearance, Denies excessive sweating, Denies polyphagia, Denies polydipsia and Denies polyuria [facility] Past Medical History Medical History Bacteremia Erectile dysfunction associated with type 2 diabetes mellitus Obesity (BMI 30.0-34.9) Diabetic peripheral neuropathy Osteomyelitis of toe of left foot (2020) Left 5th toe Type 2 diabetes mellitus (~04/2021) Officially diagnosed in 2020 but patient already had a foot wound and osteomyelitis of the left toe at that time Ulcer of left fifth toe due to diabetes mellitus (04/2021) With associated cellulitis Glaucoma Surgical History Surgical History History of amputation of toe Left 5th toe History of ankle surgery Family History Family History Father Acute myocardial infarction, Onset Age: 62 Heart disease Tobacco use Mother , She in her 70s Brain cancer Lung cancer Carcinoma of colon Grandparent Diabetes mellitus Other Arthritis Hypertension Neuropathy Stomach cancer Social History Social History Social History: Patient is single and lives alone. He states he has never been . Patient works for a [employer]. He has his (non biologic) son part-time. He is a lifelong nonsmoker. He denies history of significant alcohol use or illicit substance use. Code status: DNR/DNI (per patient request) Surrogate decision maker: Sole Javad (niece) Smoking status: Never smoker Second hand tobacco smoke exposure: No Alcohol intake: never Substance use: never Substance use type: does not use Do You Feel Safe in your Home?: Yes Lack of Transportation: No Lack of Food: Never True Current Housing: I Have Housing Concerned About Future Housing: No Difficulty Paying Gas/Electric Bills: No Difficulty Paying for Meds: No Currently Unemployed: No Education: High School Diploma/GED Difficulty w/ Childcare or Family Care: No Living arrangements: alone Additional living arrangements comments: 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 Occupation/Education: occupation 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 Gender identity (if verbalized by the patient): Male Spiritual care concerns: No Meds Home Medications and Allergies Home Medications ?Medication ?Instructions ?Recorded ?Confirmed ?Type losartan 50 mg-hydrochlorothiazide 1 tablet PO DAILY #90 tabs 06/13/24 08/20/24 Rx 12.5 mg tablet insulin human U-100 NPH-regulr 15 unit subcut BID 08/08/24 08/20/24 History 70-30 mix 100 unit/mL subcutaneous susp (Novolin 70/30 U-100 Insulin) metformin 500 mg tablet,extended 500 mg PO BID 08/08/24 08/20/24 History release 24 hr semaglutide 0.25 mg or 0.5 mg (2 0.25 mg subcut WEEKLY 08/08/24 08/20/24 History mg/3 mL) subcutaneous pen injector (Ozempic) Allergies Allergy/AdvReac Type Severity Reaction Status Date / Time No Known Allergies Allergy Verified 08/23/24 09:35 Exam Const: General: alert and awake Orientation/consciousness: patient oriented x3 Limitations: no limitations Extrem: Right lower extremity: ankle Details: tenderness Location: of the lateral malleolus and of the medial malleolus, swelling Details: laterally and posteriorly, abnormal ROM Details: pain with active ROM Details: with plantar flexion and with dorsiflexion and pain with passive ROM Details: with plantar flexion and with dorsiflexion, warmth and other (redness, laterally ); no ecchymosis and foot ( 2nd toe amputation) Details: abnormal to inspection, vascular exam Details: abnormal capillary refill Location: of all toes; dorsalis pedis pulse absent and posterior tibial pulse absent and motor-sensory exam Details: light-touch abnormal; abnormal capillary refill Other: Wound on the dorsal lateral aspect of the right foot, dressing removed today. Erythema to the right lateral ankle significantly improved. Additional wound at the side of the 2nd toe amputation Now fully healed. Wound depth 2 cm at the sinus tarsi. Wound length 9.5x3.1x2.0 cm. serous drainage. improved granulation tissue over the sinus tarsi. Remainder of wound with 100% granulation tissue. No slough. Psych: Mental Status: mental status grossly normal Assessment and Plan Assessment and plan (1) Septic arthritis of ankle and foot region: Code(s): M00.9 - Pyogenic arthritis, unspecified Status: Acute Assessment and Plan: 7 weeks status post I and D of right ankle and 2nd ray amputation. Patient was discharged from the hospital on home IV infusion. He has now completed a course of IV antibiotics. Wound VAC in place, tolerating this well with home health assistance for dressing changes. Overall dimensions of the wound per Wound Clinic note. No signs of worsening infection. Underwent debridement and graft application last week with good response. Unable to repeat graft today due to supply issue. Wound VAC reapplied. May follow-up in the wound clinic for wound VAC problems, otherwise re-evaluation in 1 week for possible re-application of graft. (2) Amputated toe of right foot: Code(s): S98.131A - Complete traumatic amputation of one right lesser toe, initial encounter Status: Acute (3) Acute right ankle pain: Code(s): M25.571 - Pain in right ankle and joints of right foot Status: Acute (4) Bacteremia: Code(s): R78.81 - Bacteremia Status: Acute (5) Necrotizing fasciitis of lower leg: Code(s): M72.6 - Necrotizing fasciitis Status: Acute (6) Osteomyelitis of right foot: Qualifiers: Osteomyelitis type: other acute Qualified Code(s): M86.171 - Other acute osteomyelitis, right ankle and foot Code(s): M86.9 - Osteomyelitis, unspecified Status: Acute
--- NOTE | 2024-10-18 12:16 | PM.IMHP ---
H&P: HPI History of Present Illness Date/Time: 10/18/24 12:16 Chief Complaint: Right foot wound Narrative: 49-year-old male follows up in the [facility] wound clinic for re-evaluation status post hospitalization and I and D of the right 2nd toe amputation with ankle wound and wound VAC application by Dr. Reinoso. He has completed IV antibiotics. No new concerns today. Tolerating wound VAC well. Increased drainage and slow to heal wound noted. [facility] Past Medical History Medical History Bacteremia Erectile dysfunction associated with type 2 diabetes mellitus Obesity (BMI 30.0-34.9) Diabetic peripheral neuropathy Osteomyelitis of toe of left foot (2020) Left 5th toe Type 2 diabetes mellitus (~04/2021) Officially diagnosed in 2020 but patient already had a foot wound and osteomyelitis of the left toe at that time Ulcer of left fifth toe due to diabetes mellitus (04/2021) With associated cellulitis Glaucoma Surgical History Surgical History History of amputation of toe Left 5th toe History of ankle surgery Family History Family History Father Acute myocardial infarction, Onset Age: 62 Heart disease Tobacco use Mother , She in her 70s Brain cancer Lung cancer Carcinoma of colon Grandparent Diabetes mellitus Other Arthritis Hypertension Neuropathy Stomach cancer Social History Social History Social History: Patient is single and lives alone. He states he has never been . Patient works for a [employer]. He has his (non biologic) son part-time. He is a lifelong nonsmoker. He denies history of significant alcohol use or illicit substance use. Code status: DNR/DNI (per patient request) Surrogate decision maker: Sole Farnsworth (niece) Smoking status: Never smoker Second hand tobacco smoke exposure: No Alcohol intake: never Substance use: never Substance use type: does not use Do You Feel Safe in your Home?: Yes Lack of Transportation: No Lack of Food: Never True Current Housing: I Have Housing Concerned About Future Housing: No Difficulty Paying Gas/Electric Bills: No Difficulty Paying for Meds: No Currently Unemployed: No Education: High School Diploma/GED Difficulty w/ Childcare or Family Care: No Living arrangements: alone Additional living arrangements comments: 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 Occupation/Education: occupation 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 [employer] Gender identity (if verbalized by the patient): Male Spiritual care concerns: No Meds Home Medications and Allergies Home Medications ?Medication ?Instructions ?Recorded ?Confirmed ?Type losartan 50 mg-hydrochlorothiazide 1 tablet PO DAILY #90 tabs 06/13/24 08/20/24 Rx 12.5 mg tablet insulin human U-100 NPH-regulr 15 unit subcut BID 08/08/24 08/20/24 History 70-30 mix 100 unit/mL subcutaneous susp (Novolin 70/30 U-100 Insulin) metformin 500 mg tablet,extended 500 mg PO BID 08/08/24 08/20/24 History release 24 hr semaglutide 0.25 mg or 0.5 mg (2 0.25 mg subcut WEEKLY 08/08/24 08/20/24 History mg/3 mL) subcutaneous pen injector (Ozempic) Allergies Allergy/AdvReac Type Severity Reaction Status Date / Time No Known Allergies Allergy Verified 08/23/24 09:35 Exam Const: General: alert and awake Orientation/consciousness: patient oriented x3 Limitations: no limitations Extrem: Right lower extremity: ankle Details: tenderness Location: of the lateral malleolus and of the medial malleolus, swelling Details: laterally and posteriorly, abnormal ROM Details: pain with active ROM Details: with plantar flexion and with dorsiflexion and pain with passive ROM Details: with plantar flexion and with dorsiflexion, warmth and other (redness, laterally ); no ecchymosis and foot ( 2nd toe amputation) Details: abnormal to inspection, vascular exam Details: abnormal capillary refill Location: of all toes; dorsalis pedis pulse absent and posterior tibial pulse absent and motor-sensory exam Details: light-touch abnormal; abnormal capillary refill Other: Wound on the dorsal lateral aspect of the right foot, dressing removed today. Erythema to the right lateral ankle significantly improved. Additional wound at the side of the 2nd toe amputation Now fully healed. Wound depth 1 cm at the sinus tarsi. Wound length 8.6x2.8x1.0 cm. Serous drainage. improved granulation tissue over the sinus tarsi. Remainder of wound with 100% granulation tissue. No slough. Psych: Mental Status: mental status grossly normal Assessment and Plan Assessment and plan (1) Septic arthritis of ankle and foot region: Code(s): M00.9 - Pyogenic arthritis, unspecified Status: Acute Assessment and Plan: 8 weeks status post I and D of right ankle and 2nd ray amputation. Patient was discharged from the hospital on home IV infusion for antibiotics initially. He has now completed a course of IV antibiotics. Wound VAC in place, tolerating this well with home health assistance for dressing changes. Overall dimensions of the wound per Wound Clinic note. No signs of worsening infection. Underwent debridement and graft application 2 weeks ago with good response. Patient was indicated for repeat graft application today. Wound VAC applied over graft. One week for re-evaluation. (2) Amputated toe of right foot: Code(s): S98.131A - Complete traumatic amputation of one right lesser toe, initial encounter Status: Acute (3) Acute right ankle pain: Code(s): M25.571 - Pain in right ankle and joints of right foot Status: Acute (4) Bacteremia: Code(s): R78.81 - Bacteremia Status: Acute (5) Necrotizing fasciitis of lower leg: Code(s): M72.6 - Necrotizing fasciitis Status: Acute (6) Osteomyelitis of right foot: Qualifiers: Osteomyelitis type: other acute Qualified Code(s): M86.171 - Other acute osteomyelitis, right ankle and foot Code(s): M86.9 - Osteomyelitis, unspecified Status: Acute Procedure Note - Brief Procedure Note - Brief Date of procedure: 10/18/24 right foot diabetic ulcer Procedure performed: Graft application to right lateral foot wound Surgeon: CARY Almanzar Anesthesia: none Description of procedure: Graft procedure discussed at length with patient. Patient agrees to application. Wound measures 8.6x2.8x1.0. Wound prepped with alcohol solution. MariGen graft applied under sterile conditions. Graft then covered with Mepitel ONE and Wound VAC dressing for graft protection. Patient educated on post graft application dressing instructions. Tissue ID: [id number] Size: 38 sq cm Product ID: JESSICA GEN MICRO KERECIS OMEGA 3 Estimated blood loss (mL): 0 Total Tourniquet Time: 0 IV fluids (mL): 0 Urine output (mL): 0 Drains: No Packing: No Pathology: None sent Complications: No immediate complications Condition: Stable Disposition: Same day
--- NOTE | 2024-10-25 10:02 | WPDWOUNDNOTE ---
Wound Care Note Date/Time: 10/25/24 8:30 History: 49-year-old with right diabetic foot ulcer and osteomyelitis, follow-up appointment [facility]. Wound VAC in place. Patient reports no interval problems. 3 weeks status post Initial graft placement. repeat graft 1 week ago. Wound history: 9 weeks status post I&D right ankle and foot. 3 months status post 2nd ray amputation, open. Graft application to wound 3 weeks ago and 1 week ago. Currently with wound VAC in place. Wound approximation: No ( Open wound dorsal lateral aspect rt ft with tunneling at the sinus tarsi ) Wound width: 2.5 cm Wound length: 8.5 cm Wound depth: 1.4 cm Drainage: mild serous Surrounding tissue appearance: clean and dry, mild swelling, no erythema or warmth. Tunneling: Sinus tarsi 1.4 cm, deep wound 2 x 1 cm Percentage granulation tissue: 100 Treatment/Procedures: synthetic skin and tissue application 1 week ago, 3 weeks ago Dressings: wound VAC dressing replaced over graft Assessment and Plan Assessment and plan (1) Septic arthritis of ankle and foot region: Code(s): M00.9 - Pyogenic arthritis, unspecified Status: Acute Assessment and Plan: 9 weeks status post I and D of right ankle and 2nd ray amputation. Wound VAC in place, tolerating this well with home health assistance for dressing changes. Overall dimensions of the wound noted. No signs of worsening infection. Underwent debridement and graft application 3 weeks ago with good response. Patient was indicated for repeat debridement and graft application today. Wound VAC applied over graft. follow-up One week for re-evaluation. (2) Amputated toe of right foot: Code(s): S98.131A - Complete traumatic amputation of one right lesser toe, initial encounter Status: Acute (3) Acute right ankle pain: Code(s): M25.571 - Pain in right ankle and joints of right foot Status: Acute (4) Bacteremia: Code(s): R78.81 - Bacteremia Status: Acute (5) Necrotizing fasciitis of lower leg: Code(s): M72.6 - Necrotizing fasciitis Status: Acute (6) Osteomyelitis of right foot: Qualifiers: Osteomyelitis type: other acute Qualified Code(s): M86.171 - Other acute osteomyelitis, right ankle and foot Code(s): M86.9 - Osteomyelitis, unspecified Status: Acute Plan Discussed nonoperative and operative treatment options with the patient. Risks and benefits of each as well as alternatives were reviewed. All of the patient's questions were answered. The risks of surgery reviewed including but not limited to: Neurovascular damage, wound complication, infection, blood clot, pulmonary embolus, stroke, myocardial infarction, and anesthetic risks up to and including . Continued pain and possible dysfunction were explained. Specific risks of the procedure including later recurrence of deformity. No guarantees were offered. If hardware used, discussed risk of failure/ breakage and possible need for removal. If complications occur, the patient understands the need for further treatment, possible further surgery. Patient verbalizes understanding and wishes to proceed. PLAN: excisional debridement right foot with application of synthetic skin graft Review of Systems Constitutional: Constitutional: Denies chills and Denies fever(s) Eyes: Eyes: Reports no additional eye complaints and Denies change in vision ENT: Reports system reviewed and no additional complaints, except as documented and Reports Normal hearing present Cardiovascular: Cardiovascular: Denies chest pain, Denies diaphoresis, Denies leg ulcers and Denies dyspnea on exertion Respiratory: Respiratory: Reports no additional respiratory complaints, Denies cough and Denies dyspnea on exertion Gastrointestinal: Gastrointestinal: Reports no additional gastrointestinal complaints, Denies abdominal pain, Denies constipation, Denies nausea and Denies vomiting Genitourinary: Genitourinary: Reports no additional male genitourinary complaints, Denies hematuria and Denies urinary frequency Musculoskeletal: Musculoskeletal: Reports no additional musculoskeletal complaints and Reports as per HPI Integumentary/Breasts: Skin/Breast: Reports as per HPI, Reports lesions, Reports new lesions and Reports skin ulcer Neurologic: Reports Normal hearing present Endocrine: Endocrine: Reports no additional endocrine complaints, Denies change in body appearance, Denies excessive sweating, Denies polyphagia, Denies polydipsia and Denies polyuria Exam Const: General: alert and awake Orientation/consciousness: patient oriented x3 Limitations: no limitations Extrem: Right lower extremity: ankle Details: tenderness Location: of the lateral malleolus and of the medial malleolus, swelling Details: laterally and posteriorly, abnormal ROM Details: pain with active ROM Details: with plantar flexion and with dorsiflexion and pain with passive ROM Details: with plantar flexion and with dorsiflexion, warmth and other (redness, laterally ); no ecchymosis and foot ( 2nd toe amputation) Details: abnormal to inspection, vascular exam Details: abnormal capillary refill Location: of all toes; dorsalis pedis pulse absent and posterior tibial pulse absent and motor-sensory exam Details: light-touch abnormal; abnormal capillary refill Other: Wound on the dorsal lateral aspect of the right foot, dressing removed today. Erythema to the right lateral ankle improved. Additional wound at the side of the 2nd toe amputation fully healed. Wound depth 1.4 cm at the sinus tarsi. Wound length 8.5x2.5cm. Serous drainage. improved granulation tissue over the sinus tarsi. Remainder of wound with 100% granulation tissue. No slough. hypergranulation tissue distal wound edge Psych: Mental Status: mental status grossly normal
--- NOTE | 2024-10-25 10:10 | W.PM.PROC2 ---
Procedure Note - Detailed Date of Procedure 10/25/24 Pre-op Diagnosis right foot diabetic ulcer, open wound, osteomyelitis Post-op Diagnosis Same Procedure Performed Excisional debridement of right foot diabetic ulcer including muscle layer. Ulcer measures 8.5 by 2.5 x 2 cm. Application of synthetic graft. Surgeon Akbar Ladd MD Anesthesia None Indications 49-year-old with diabetic ulcer of the right foot. Presents to the Wound Clinic. Indicated for debridement with graft application for non Healing wound. Findings wound mentions 8.5 x 2.5 x 2 cm Description of Procedure informed consent given. Foot sterilized with alcohol prep solution. Debridement performed with scalpel, pickup and curette. Skin, subcutaneous tissue and muscle sharply excised and debrided from the wound and passed off. Viable tissue and granulation tissue left in place. Debridement of the deep portion extending to the sinus tarsi performed. nonviable tissue and graft Remnants excised and passed off. Next, graft reconstituted with saline on the back table. Graph then applied to the wound and wound depth. hypergranulation tissue addressed with silver nitrate. Sterile dressing and wound VAC applied. Implants Synthetic graft 38 sq cm, lot number [id number] - [id number] X Estimated Blood Loss 3 Tourniquet Time Total Tourniquet Time: 0 Urine Output 0 Drains No Packing Yes Pathology None sent Complications None Condition Stable Disposition Same day [facility] Billing Surgery - Charge Forward: Surgery Billing ([id number], [id number])
--- NOTE | 2024-11-01 11:06 | WPDWOUNDNOTE ---
Wound Care Note Date/Time: 11/01/24 8:26 History: 49-year-old with right diabetic foot ulcer and osteomyelitis, follow-up appointment [facility]. Wound VAC in place. Patient reports no interval problems. 4 weeks status post initial graft placement. repeat graft 2 + 1 week ago. Wound history: 10 weeks status post I&D right ankle and foot. 3.5 months status post 2nd ray amputation, open. Graft application to wound 4 weeks ago and 2,1 weeks ago. Currently with wound VAC in place. Wound approximation: No ( Open wound dorsal lateral aspect rt ft with tunneling at the sinus tarsi ) Wound width: 2 cm Wound length: 8 cm Wound depth: 1 cm Drainage: mild serous Surrounding tissue appearance: clean and dry, mild swelling, no erythema or warmth. Tunneling: Sinus tarsi 1 cm, deep wound 0.5 x 0.4 cm Percentage granulation tissue: 100 Treatment/Procedures: synthetic skin and tissue application 1 week ago, 2 weeks ago, Initial 4 weeks ago Dressings: wound VAC dressing replaced over graft Assessment and Plan Assessment and plan (1) Septic arthritis of ankle and foot region: Code(s): M00.9 - Pyogenic arthritis, unspecified Status: Acute Assessment and Plan: 10 weeks status post I and D of right ankle and 2nd ray amputation. Wound VAC in place, tolerating this well with home health assistance for dressing changes. Overall dimensions of the wound noted. No signs of worsening infection. Underwent debridement and graft application 4, 1 weeks ago with good response. Patient was indicated for repeat graft application today. Wound VAC applied over graft. follow-up One week for re-evaluation. (2) Amputated toe of right foot: Code(s): S98.131A - Complete traumatic amputation of one right lesser toe, initial encounter Status: Acute (3) Acute right ankle pain: Code(s): M25.571 - Pain in right ankle and joints of right foot Status: Acute (4) Bacteremia: Code(s): R78.81 - Bacteremia Status: Acute (5) Necrotizing fasciitis of lower leg: Code(s): M72.6 - Necrotizing fasciitis Status: Acute (6) Osteomyelitis of right foot: Qualifiers: Osteomyelitis type: other acute Qualified Code(s): M86.171 - Other acute osteomyelitis, right ankle and foot Code(s): M86.9 - Osteomyelitis, unspecified Status: Acute Plan Discussed nonoperative and operative treatment options with the patient. Risks and benefits of each as well as alternatives were reviewed. All of the patient's questions were answered. The risks of surgery reviewed including but not limited to: Neurovascular damage, wound complication, infection, blood clot, pulmonary embolus, stroke, myocardial infarction, and anesthetic risks up to and including . Continued pain and possible dysfunction were explained. Specific risks of the procedure including later recurrence of deformity. No guarantees were offered. If hardware used, discussed risk of failure/ breakage and possible need for removal. If complications occur, the patient understands the need for further treatment, possible further surgery. Patient verbalizes understanding and wishes to proceed. PLAN: application of synthetic skin graft Review of Systems Constitutional: Constitutional: Denies chills and Denies fever(s) Eyes: Eyes: Reports no additional eye complaints and Denies change in vision ENT: Reports system reviewed and no additional complaints, except as documented and Reports Normal hearing present Cardiovascular: Cardiovascular: Denies chest pain, Denies diaphoresis, Denies leg ulcers and Denies dyspnea on exertion Respiratory: Respiratory: Reports no additional respiratory complaints, Denies cough and Denies dyspnea on exertion Gastrointestinal: Gastrointestinal: Reports no additional gastrointestinal complaints, Denies abdominal pain, Denies constipation, Denies nausea and Denies vomiting Genitourinary: Genitourinary: Reports no additional male genitourinary complaints, Denies hematuria and Denies urinary frequency Musculoskeletal: Musculoskeletal: Reports no additional musculoskeletal complaints and Reports as per HPI Integumentary/Breasts: Skin/Breast: Reports as per HPI, Reports lesions, Reports new lesions and Reports skin ulcer Neurologic: Reports Normal hearing present Endocrine: Endocrine: Reports no additional endocrine complaints, Denies change in body appearance, Denies excessive sweating, Denies polyphagia, Denies polydipsia and Denies polyuria Exam Const: General: alert and awake Orientation/consciousness: patient oriented x3 Limitations: no limitations Extrem: Right lower extremity: ankle Details: tenderness Location: of the lateral malleolus and of the medial malleolus, swelling Details: laterally and posteriorly, abnormal ROM Details: pain with active ROM Details: with plantar flexion and with dorsiflexion and pain with passive ROM Details: with plantar flexion and with dorsiflexion, warmth and other (redness, laterally ); no ecchymosis and foot ( 2nd toe amputation) Details: abnormal to inspection, vascular exam Details: abnormal capillary refill Location: of all toes; dorsalis pedis pulse absent and posterior tibial pulse absent and motor-sensory exam Details: light-touch abnormal; abnormal capillary refill Other: Wound on the dorsal lateral aspect of the right foot, dressing removed today. Erythema to the right lateral ankle improved. Additional wound at the side of the 2nd toe amputation fully healed. Wound depth 1 cm at the sinus tarsi. Wound length 8x2cm. Serous drainage. improved granulation tissue over the sinus tarsi. Remainder of wound with 100% granulation tissue. No slough. hypergranulation tissue distal wound edge Psych: Mental Status: mental status grossly normal Podiatry Debridement Skin Pre Procedure Consent was obtained, Procedures/risks were explained, Questions were answered, Correct patient identified and Correct side and site confirmed Podiatry Debridement Skin Site(s) of debridement: Right foot Sent to Pathology: No Procedure Active wound care/ 20 CM or < (application graft rt foot= [id number]) Post Procedure Patient tolerated the procedure well?: Tolerated procedure well Comments: site prepared with alcohol prep. Synthetic graft reconstituted with sterile saline. Sterile instruments used to apply graft to right foot wound. sterile dressing applied
--- NOTE | 2024-11-08 14:18 | P.PNWOUND_ITS ---
Wound Care Note Date/Time: 11/08/24 14:18 History: 49-year-old with right diabetic foot ulcer and osteomyelitis, follow-up appointment [facility]. Wound VAC in place. Patient reports no interval problems. 4 weeks status post initial graft placement. repeat graft 2 + 1 week ago. Wound history: 11 weeks status post I&D right ankle and foot. 3.5 months status post 2nd ray amputation, open. Graft application to wound 4 weeks ago and 2,1 weeks ago. Currently with wound VAC in place. Wound approximation: No ( Open wound dorsal lateral aspect rt ft with tunneling at the sinus tarsi ) Wound width: 1.5 cm Wound length: 6.6 cm Wound depth: 0.8 cm Drainage: mild serous Surrounding tissue appearance: clean and dry, mild swelling, no erythema or warmth. Percentage granulation tissue: 100 Treatment/Procedures: synthetic skin and tissue application 1 week ago. Dressings: wound VAC dressing replaced over graft Assessment and Plan Assessment and plan (1) Septic arthritis of ankle and foot region: Code(s): M00.9 - Pyogenic arthritis, unspecified Status: Acute Assessment and Plan: 11 weeks status post I and D of right ankle and 2nd ray amputation. Wound VAC in place, tolerating this well with home health assistance for dressing changes. Overall dimensions of the wound noted. No signs of worsening infection. Underwent debridement and graft application last week. Patient was indicated for repeat graft application today. Wound VAC holiday. Follow-up One week for re- evaluation. (2) Amputated toe of right foot: Code(s): S98.131A - Complete traumatic amputation of one right lesser toe, initial encounter Status: Acute (3) Acute right ankle pain: Code(s): M25.571 - Pain in right ankle and joints of right foot Status: Acute (4) Bacteremia: Code(s): R78.81 - Bacteremia Status: Acute (5) Necrotizing fasciitis of lower leg: Code(s): M72.6 - Necrotizing fasciitis Status: Acute (6) Osteomyelitis of right foot: Qualifiers: Osteomyelitis type: other acute Qualified Code(s): M86.171 - Other acute osteomyelitis, right ankle and foot Code(s): M86.9 - Osteomyelitis, unspecified Status: Acute Plan Discussed nonoperative and operative treatment options with the patient. Risks and benefits of each as well as alternatives were reviewed. All of the patient's questions were answered. The risks of surgery reviewed including but not limited to: Neurovascular damage, wound complication, infection, blood clot, pulmonary embolus, stroke, myocardial infarction, and anesthetic risks up to and including . Continued pain and possible dysfunction were explained. Specific risks of the procedure including later recurrence of deformity. No guarantees were offered. If hardware used, discussed risk of failure/ breakage and possible need for removal. If complications occur, the patient understands the need for further treatment, possible further surgery. Patient verbalizes understanding and wishes to proceed. PLAN: application of synthetic skin graft Review of Systems Constitutional: Constitutional: Denies chills and Denies fever(s) Eyes: Eyes: Reports no additional eye complaints and Denies change in vision ENT: Reports system reviewed and no additional complaints, except as docume nted and Reports Normal hearing present Cardiovascular: Cardiovascular: Denies chest pain, Denies diaphoresis, Denies leg ulcers and Denies dyspnea on exertion Respiratory: Respiratory: Reports no additional respiratory complaints, Denies cough and Denies dyspnea on exertion Gastrointestinal: Gastrointestinal: Reports no additional gastrointestinal complaints, Denies abdominal pain, Denies constipation, Denies nausea and Denies vomiting Genitourinary: Genitourinary: Reports no additional male genitourinary complaints, Denies hematuria and Denies urinary frequency Musculoskeletal: Musculoskeletal: Reports no additional musculoskeletal complaints and Reports as per HPI Integumentary/Breasts: Skin/Breast: Reports as per HPI, Reports lesions, Reports new lesions and Reports skin ulcer Neurologic: Reports Normal hearing present Endocrine: Endocrine: Reports no additional endocrine complaints, Denies change in body appearance, Denies excessive sweating, Denies polyphagia, Denies polydipsia and Denies polyuria Exam Const: General: alert and awake Orientation/consciousness: patient oriented x3 Limitations: no limitations Extrem: Right lower extremity: ankle Details: tenderness Location: of the lateral malleolus and of the medial malleolus, swelling Details: laterally and posteriorly, abnormal ROM Details: pain with active ROM Details: with plantar flexion and with dorsiflexion and pain with passive ROM Details: with plantar flexion and with dorsiflexion, warmth and other (redness, laterally ); no ecchymosis and foot ( 2nd toe amputation) Details: abnormal to inspection, vascular exam Details: abnormal capillary refill Location: of all toes; dorsalis pedis pulse absent and posterior tibial pulse absent and motor-sensory exam Details: light-touch abnormal; abnormal capillary refill Other: Wound on the dorsal lateral aspect of the right foot, dressing removed today. Additional wound at the side of the 2nd toe amputation fully healed. Wound depth 0.8 cm at the sinus tarsi. Wound length 6.6x1.5 cm. Serous drainage. improved granulation tissue over the sinus tarsi. Remainder of wound with 100% granulation tissue. No slough. Psych: Mental Status: mental status grossly normal Procedure Note - Brief Procedure Note - Brief Date of procedure: 11/08/24 right foot diabetic ulcer Procedure performed: Graft application to right lateral foot wound Surgeon: CARY Almanzar Anesthesia: none Description of procedure: Graft procedure discussed at length with patient. Patient agrees to application. Wound measures 6.6x1.5x0.8 cm. Wound prepped with alcohol solution. MariGen graft applied under sterile conditions. Graft then covered with Mepitel ONE and Wound VAC dressing for graft protection. Patient educated on post graft application dressing instructions. Size: 4 sq cm Product ID: [id number] GEN MICRO KERECIS OMEGA 3 Estimated blood loss (mL): 0 Total Tourniquet Time: 0 IV fluids (mL): 0 Urine output (mL): 0 Drains: No Packing: No Pathology: None sent Complications: No immediate complications Condition: Stable Disposition: Same day
== END 2024-11-13 23:59 | disposition home or self-care (01) ==
LOC: ANHWOC 07:06
PROVIDERS: Visit Provider Nurse Practitioner Family
DX: E11.621 Type 2 diabetes mellitus with foot ulcer (principal); L97.519 Non-pressure chronic ulcer of other part of right foot with unspecified severity
CPT/HCPCS: 97605; 99213; 99214; G0463

== ENCOUNTER 2024-11-29 08:52 | Outpatient (CLI) | payer OTHER, SELFPAY | END 2024-11-29 08:53 | disposition home or self-care (01) | LOC: ANHSURGERY 08:55 | PROVIDERS: Visit Provider Orthopaedic Surgery | DX: I10 Essential (primary) hypertension (principal) | CPT/HCPCS: 93005 ==

== ENCOUNTER 2024-12-05 00:57 | Day surgery (SDC) | payer OTHER, SELFPAY ==
[2024-11-25 09:19] VITALS: BMI 30.8
--- NOTE | 2024-11-25 09:32 | PC.NURSE ---
Report to the Outpatient Waiting Room, entrance under the green pavilion located off [facility], at time __0600am on date ___12/05/24____. Planned Procedure Time: __0730am .? Time changes happen often and if your time is changed the preop area will call you the afternoon before. - You and your visitor will be asked to self-screen and do not enter if you have any COVID symptoms. Please call surgeon if you need to reschedule. - A mask is optional within the hospital at this time. Patients may have clear liquids (water, carbonated beverages, clear teas, apple juice) until 3 hours prior to surgery with a maximum of 20 ounces. - No food from midnight until time of surgery and no smoking, or chewing tobacco (or any form of nicotine). No chewing gum, candy or mints. (0430am) Take only the following medications with a SIP of water on the morning of surgery: None DO NOT STOP ANY OF YOUR OTHER PRESCRIPTION MEDICATIONS PRIOR TO SURGERY EXCEPT THE FOLLOWING: NONE Hold all vitamins and supplements for 3 days per anesthesiologist. Date to take last dose___12/01/24 Please no make-up, nail wolof, hairspray, perfume, deodorant, or body powder the day of surgery.? No jewelry (including any body piercings) or valuables the day of surgery, leave them at home.? Please take a shower or bath the night before, or the morning of, surgery with an antibacterial soap.? Wear comfortable, loose fitting clothing.? - Jewelry must be removed prior to entering the operating room.? Rings and piercings that are not removed may be cut off. - The hospital will not accept responsibility for valuables.? - Please leave all valuables, including medications, at home the day of surgery. If you are going home after surgery, a licensed parcel post truck driver must drive you home.? - NO public transportation without another adult if you receive anesthesia. - We recommend that an adult stay with you for 24 hours following discharge. - We also recommend that you do not drive, make important decision, drink alcoholic beverages, or take any drugs that were not prescribed by your health care provider for at least 24 hours after your discharge time. Follow any additional instructions given to you from your surgeon. Telephone instructions given to __Patient and asked if any additional questions and then verbalized understanding. Patient advised to call surgeon office or pre surgery nurse liaison [phone] if any additional questions.
[2024-12-05] VITALS (7 sets, daily range): BP systolic 126–156; BP diastolic 84–100; PULSE 88–98; RESP 13–16; TEMP 36.4–37.1; O2SAT 97–100
--- NOTE | ~2024-12-05 | XR_ITS ---
INTRAOPERATIVE FLUOROSCOPY: CLINICAL HISTORY: 49 years old Male; RIGHT FOOT ARTHRODESIS PROCEDURE COMMENTS: Limited intraoperative fluoroscopy of the right foot was performed. CUMULATIVE DOSE: 0.2 mGy FLUOROSCOPY TIME: 0.18 seconds FINDINGS/IMPRESSION: Please refer to operative note for further details. Reviewed, dictated and finalized at location A. ME PLATER HELPER
--- OUTSIDE RECORDS SUMMARY | 2024-12-05 00:59 | XMS_ITS | Data Portability ---
Author Organization [place] - [facility], [employer] Address [address] [place] [address] Assessment Encounter Date Assessment Date Assessment LastModified by Organization Details LastModified Time 08/01/2019 08/01/2019 New patient presented for admission to the practice. Studies ordered as below. Discussed plan with patient, who expressed understanding . Follow up as noted below. [email or web address] Not available 08/01/2019 14:32:32 Plan of Treatment Reminders Order Date Submit Date Provider Last Modified By Organization Details Last Modified Time Details Appointments None recorded. Lab CK (creatine kinase), total, serum [address], [address] [place], [address], 9 09:58:25 lipid panel, serum [address], [address] [place], [address], 9 09:58:25 CBC w/ auto diff [address], [address] [place], [address], 9 09:58:25 CMP, serum or plasma [address], [address] [place], [address], 9 09:58:25 glucose tolerance test, 2-hour 2018 [facility], [address] [place], [address], 9 09:58:25 HbA1c (hemoglobi n A1c), blood [email or web address], [address] [place], [address], 9 09:58:26 magnesium, blood [address], [address] [place], [address], 9 09:58:26 D-dimer, quant, plasma [address], [address] [place], [address], 9 09:58:26 TSH, serum or plasma [address], [address] [place], [address], 9 09:58:25 Referral optometris t referral 2018 LUKE Mariee MD, [address] [place] [address], [address], [place], [address], 9 13:13:[address] referral 2018 [email or web address] Not available 9 08:58:44 Procedures None recorded. Surgeries None recorded. Imaging electrocar diogram 2018 [email or web address] [facility], [facility], [address], [place], [address], 9 15:16:33 US, carotid artery 2018 [facility], [address] [place], [address], 9 08:58:54 US, echocardio gram 2018 LUKE [facility], [facility], [address], [place], [address], 9 09:56:46 Medication Orders aspirin 81 mg tablet,del ayed release 2018 INTERFACE [facility] [place], [address], 9 15:15:29 diltiazem CD 120 mg capsule,ex tended release 24 hr 2018 INTERFACE [facility] [address] [place], [address], 9 15:13:01 Patient TargetsNo targets recorded. 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 Referral for Hem atoma Referring Physician: Danielle Robledo, Internal Medicine, Encounter Date: 08/01/2019 Results Created Date Observation Date Name Description Value Unit Range Abnormal Flag Note LastModifiedBy Organization Detail LastModifiedTime 08/02/2008/02/2019 pina hustongr am Rate & Rhythm Not Available [facility], [facility] [address], [place], [address], 08/01/2019 14:40:48 08/02/20 19 08/02/2019 elect britton diogr am QRS Not Available [facility], [facility] [address], [place], [address], 08/01/2019 14:40:48 08/02/20 19 08/02/2019 elect britton diogr am WA Interval Not Available [facility], [facility] [address], [place], [address], 08/01/2019 14:40:48 08/02/20 19 08/02/2019 elect rocar diogr am QRS Duration Not Available [facility], [facility] [address], [place], [address], 08/01/2019 14:40:48 08/02/20 19 08/02/2019 elect rocar diogr am QT Interval Not Available [facility], [facility] [address], [place], [address], 08/01/2019 14:40:48 08/02/20 19 08/02/2019 elect rocar diogr am Change from Previous EKG? Not Available [facility], [facility] [address], [place], [address], 08/01/2019 14:40:48 08/02/2008/02/2019 elect rocar diogr am Date of Last EKG Not Available [facility], [facility] [address], [place], [address], 08/01/2019 14:40:48 08/02/20 19 08/01/2019 elect rocar diogr am No observ ation record ed. elvin [facility], [facility] [address], [place], [address], 08/02/2019 12:46:26 Result Notes None recorded. Problems Name Problem SNOMED Code Status Onset Date Resolution Date Notes Provider Name and Address Organization Details Recorded Time History of calculus of kidney 005071854 Completed 201808/01/2019 DANIELLE ROBLEDO APN [address], [place], [address], [facility] - [facility] 9 14:41:50 Benign hypertensio n 98557474 Active 2018 DANIELLE ROBLEDO APN [address], [place], [address], [facility] 9 14:35:14 Central retinal vein occlusion 54718719 Active 2018 Phong Dahl MD [address], [place], [address], [facility] 9 20:21:12 Problem Notes None recorded. Procedures Surgical History Date Name Laterality Status Provider Name and Address Organization Details Recorded Time Ankle arthroscopy/ surgery completed DANIELLE ROBLEDO APN [address], [place], [address], [facility] 08/01/2019 14:38:02 Imaging Results Imaging Date Name Status LastModified by Organization Details LastModified Time 08/01/2019 electrocardiogram completed elvin [facility], [facility] [address], [place], [address], 08/02/2019 12:46:26 Procedure Notes None recorded. Medical [...] /min 98.4 [degF] 185.42 cm 29.8 kg/m2 506776. 88 g 139 mm[Hg] 103 mm[Hg] Alicia Kenney [facility] 9 14:27:49 Social History Question Answer Notes LastModified by Organizat ion Details LastModified Time Tobacco Smoking Status Never Smoker DANIELLE ROBLEDO APN [address], [place], [address], [facility] 08/01/2019 14:37:07 What Is Your Level Of Alcohol Consumption? Occasional [email or web address] Information not available 08/01/2019 What Is Your Level Of Caffeine Consumption? Moderate [email or web address] Information not available 08/01/2019 How Much Tobacco Do You Chew? None [email or web address] Information not available 08/01/2019 Which Illicit Or Recreational Drugs Have You Used? None [email or web address] Information not available 08/01/2019 What Is Your Occupation? [employer] [email or web address] Information not available 08/01/2019 Marital Status Single [email or web address] Informatio n not available 08/01/2019 What Was The Date Of Your Most Recent Tobacco Screening? 08/01/2019 Information not available 08/03/2019 Sex: Unknown Functional Status None recorded. Mental Status None recorded. Family History Relationship Description Onset Age of this Age Resolved Age Notes LastModified by Organization Details LastModified Time Maternal Grandmother Malignant tumor of lung [email or web address] Not available 08/01 14:36:19 Paternal Aunt Malignant tumor of lung [email or web address] Not available 08/01 14:36:28 Maternal Grandfather Diabetes mellitus [email or web address] Not available 08/01 14:36:46 Maternal Aunt Diabetes mellitus [email or web address] Not available 08/01 14:36:46 Mother Benign hypertension [email or web address] Not available 14:40:14 Father Myocardial infarction Not available 07/04 14:40:24 Medical History No medical history recorded. Immunizations Vaccine Type Date Status Note Provider Nam e and Address Organization Details Recorded Time Influenza, split virus, quadrivalent , PF 9 cancelled patient objection Not Available [facility] 10/19/2019 02:28:12 Past Encounters Encounter ID Performer Location Encounter Start Date Encounter Closed Date Diagnosis/Indication Diagnosis SNOMED-CT Code Diagnosis ICD10 Code Diagnosis Note [id number] DANIELLE ROBLEDO APN [facility], [facility] [address] [place] [address] 08/01/2019 14:07:38 08/01/2019 15:16:31 Hematoma 472928672 M79.[address] Mariee - susannahsamy related to HTNreferre d to office -- for PCPneed Dr. Mariee office NICK - calling for recommenda tion for ASA daily Active or passive immunization 879841444 Z23 tdap - obtained in 2011 - as per pt Benign hypertension 1072 5009 I10 Body mass index 25-29 - overweight 270548591 Z68.29 Hyperlipid emia screening 197465575 Z13.220 Family his tory of diabetes mellitus 464490555 Z83.3 Tachycardia 6280064 R00. 0 Antiplatel et agent therapy 059667229 Z79.02 Health Concerns Section Related Observation LastModified [...] text/html New Patient DANIELLE ROBLEDO APN [address], [place], [address], [facility] 08/01/2019 15:15:23
--- OUTSIDE RECORDS SUMMARY | 2024-12-05 00:59 | XMS_ITS | Clinical Summary ---
Author Organization [facility] Address [address] [place] [address] Care Team Providers Care Youth Nutritional Monitor Name Role Phone Unavailable Primary Care Provider Unavailabl e Social History Tobacco Use Types Packs/Day Years Used Date Smoking Tobacco: Never Assessed Sex and Gender Information Value Date Recorded Sex Assigned at Not on file Legal Sex Male 8:27 PM CDT Gender Identity Not on file Sexual Orientation Not on file Plan of Treatment Health Maintenance Due Date Last Done Comments Colorectal Cancer Screening Colonoscopy (10 Years) 1973 Annual Physical 1976 Hepatitis C 1991 DTaP, Tdap and Td Vaccines ( 1 - Tdap) 1992 Hepatitis B Vaccines (1 of 3 - 19+ 3-dose series) 1992 Zoster Vaccines (1 of 2) 2023 COVID-19 Vaccine (2023-2 5 season) 2024 Influenza Adult (#1) 2024 Meningococcal B Vaccine Aged Out No l onger eligible based on patient's age to complete this topic Meningococcal Vaccine Aged Out No yenny xuan eligible based on patient's age to complete this topic Pneumococcal Vaccine: Pediat rics (0 to 5 Years) and At-Risk Patients (6 to 64 Years) Aged Out No longer eligible b ased on patient's age to complete this topic RSV Immunizations Under 20 Months Aged Out No longer eligible based on patient's age to complete this topic
--- OUTSIDE RECORDS SUMMARY | 2024-12-05 01:00 | XMS_ITS | Data Portability ---
Author Organization [facility] Darinel Brooks Address [address] [place] [address] Care Team Providers Care Gunstock Repairer Name Role Phone JUAN R LAMA Primary Care Provider Assessment Encounter Date Assessment Date Assessment LastModified by Organization Details LastModified Time 01/05/2023 01/05/2023 - SCHEDULE cardiology, podiatry, colonoscopy, ENT. given written reminder and printed out referrals Not available 01/05/2023 12:59:55 Plan of Treatment Reminders Order Date Submit Date Provider Last Modified By Organization Details Last Modified Time Details Appointments None recorded. Lab ESR (erythrocyt e sedimentati on rate), blood 2022 023 [facility] (Lab), [address], [place], [address], 3 05:00:55 C reactive protein, QN, serum or plasma 2022 023 [facility] (Lab), [address], [place], [address], 3 05:00:55 H pylori Ag, stool 2022 023 [facility] (Lab), [address], [place], [address], 3 05:00:55 pancreatic elastase, stool 2022 023 [facility] (Lab), [address], [place], [address], 3 05:00:55 O&P (ova & parasites), stool 2022 023 [facility] (Lab), [address], [place], [address], 3 05:00:55 celiac disease comprehensi ve panel, serum 2022 023 [facility] (Lab), [address], [place], [address], 3 05:00:55 giardia + cryptospori dium Ag, stool 2022 023 [facility] (Lab), [address], [place], [address], 3 05:00:55 C diff screen, stool, reflex PCR 2022 023 [facility] (Lab), [address], [place], [address], 3 05:00:55 calprotecti n, stool 2022 023 [facility] (Lab), [address], [place], [address], 3 05:00:55 CBC 2022 023 [facility] (Lab), [address], [place], [address], 3 05:00:55 glucose, fingerstick , blood 2022 023 [email or web address] In-Office Order, Internal Use Only DO Not Attach Compendium DO Not Attach Compendium, Do Not Delete/merge, [id number] 3 13:18:00 CMP, serum or plasma 2022 023 [facility], [address], [address], [place], [address], 3 06:17:06 lipid panel, serum 2022 023 [facility], [address], [address], [place], [address], 3 06:17:05 HbA1c (hemoglobin A1c), blood 2022 023 [facility] In-Office Order, Internal Use Only DO Not Attach Compendium DO Not Attach Compendium, Do Not Delete/merge, [id number] 3 12:38:23 Referral gastroenter ologist referral [address] [facility], [address], [place], [address], 3 09:51:11 otolaryngol ogist referral - uvula enlarged, choking [email or web address] [facility], [address], [place], [address], 3 11:32:54 Procedures colonoscopy procedure (PROC) - Is patient on [...] 2022 023 [email or web address] Not available 3 02:33:57 colonoscopy screening (PROC) 2022 023 [email or web address] Not available 3 10:35:06 Surgeries None recorded. Imaging None recorded. Medication Orders Dulcolax (bisacodyl) 5 mg tablet,regina yed release 2022 023 [facility] [address], [address] [place] [address], [address], 3 16:45:11 Miralax 17 gram/dose oral powder 2022 023 [facility] [address], [address] [place] [address], [address], 3 16:45:12 Trulicity 1.5 mg/0.5 mL subcutaneou s pen injector [address], [address] [place] [address], [address], 3 09:48:16 Bactrim DS 800 mg-160 mg tablet [address], [address] [place] [address], [address], 3 09:48:13 Medrol (Rafael) 4 mg tablets in a dose pack [address], [address] [place] [address], [address], 3 09:47:36 diclofenac sodium 75 mg tablet,regina yed release 2022 023 [facility] [address], [address] [place] [address], [address], 3 11:17:20 losartan 50 mg tablet 2022 023 [facility] [address], [address] [place] [address], [address], 3 12:51:07 atenolol 50 mg tablet 2022 023 [facility] [address], [address] [place] [address], [address], 12:51:08 simvastatin 20 mg tablet 2022 023 [facility], [address] [place], [address], 3 12:51:06 Patient TargetsNo targets recorded. Patient Instructions Encounter Date Encounter Id Patient Instructions Last Modified By Organization Details Last Modified Time 01/05/2023 [id number] A healthy lifestyle: care instructions Not available 01/05/2023 12:22:29 02/06/2023 [id number] A healthy lifestyle: care instructions Not available 02/06/2023 13:19:21 02/06/2023 [id number] ingrown toenail: care instructions fharry Not available [...] prevent injury or ulceration. 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 fo r Uvular hypertrophy uvula enlarged, choking Referring Physician: Juan R Lama, Electroplating Sales Representative, Encounter Date: 01/05/2023 Park Maintainer Referral for Screening colonoscopy Referring Physician: Juan R Lama Electroplating Sales Representative, Encounter Date: 02/06/2023 Results Created Date Observation Date Name Description Value Unit Range Abnormal Flag Note LastModifiedBy Organization Detail LastModifiedTime 01/06/2001/06/2023 LIPID PANEL cholesterol, total 177.4 mg/dL 140.0- 200.0 Not Available [facility] Department [address] [place] [address], [address], 01/06/2023 06:17:05 01/06/2001/06/2023 LIPID PANEL triglyceride s 195 mg/dL <=150 above high normal Not Available [facility] Department [address] [place] [address], [address], 01/06/2023 06:17:05 01/06/2001/06/2023 LIPID PANEL HDL cholesterol 38.4 mg/dL 40.0-1 00.0 below low normal Not Available [facility] Department [address] [place], [address], 01/06/2023 06:17:05 01/06/2001/06/2023 LIPID PANEL VLDL cholesterol ila 39.00 mg/dL 5.00-4 0.00 Not Available [facility] Department [address] [place], [address], 01/06/2023 06:17:05 01/06/2001/06/2023 LIPID PANEL LDL chol calc ([facility]) 105.1 Not Available [facility] Department [address] [place], [address], 01/06/2023 06:17:05 01/06/20 23 01/06/2023 COMP. METAB OLIC PANEL (14) glucose 237 mg/dL 65-99 above high normal ANION GP 21.0 mmol/ L N OSMOL 289.0 mOsM/ L N REFER ENCE RANGE : 275.0 -301. 0 Not Available [facility] Department [address] [place], [address], 01/06/2023 06:17:06 01/06/20 23 01/06/2023 COMP. METAB OLIC PANEL (14) BUN 18 mg/dL 8-26 Not Available [facility] Department [address] [place] [address], [address], 01/06/2023 06:17:06 01/06/20 23 01/06/2023 COMP. METAB OLIC PANEL (14) creatinine 1.12 mg/dL 0.50-1 .40 Not Available [facility] Department [address] [place], [address], 01/06/2023 06:17:06 01/06/20 23 01/06/2023 COMP. METAB OLIC PANEL (14) eGFR 81 mL/mi n/1.7 3 >=60 Not Available [facility] Department [address] [place] [address], [address], 01/06/2023 06:17:06 01/06/20 23 01/06/2023 COMP. METAB OLIC PANEL (14) BUN/creatini ne ratio 16.[address] [facility] Department [address] [place], [address], 01/06/2023 06:17:06 01/06/20 23 01/06/2023 COMP. METAB OLIC PANEL (14) sodium 140.0 mmol/ L 136.0- 144.0 Not Available [facility] Department [address] [place] [address], [address], 01/06/2023 06:17:06 01/06/20 23 01/06/2023 COMP. METAB OLIC PANEL (14) potassium 4.7 mmol/ L 3.5-5. 3 Not Available [facility] Department [address] [place], [address], 01/06/2023 06:17:06 01/06/20 23 01/06/2023 COMP. METAB OLIC PANEL (14) chloride 103 mmol/ l 101-11 1 Not Available [facility] Department [address] [place], [address], 01/06/2023 06:17:06 01/06/20 23 01/06/2023 COMP. METAB OLIC PANEL (14) carbon dioxide, total 20.2 mmol/ L 21.0-3 2.0 below low normal Not Available [facility] Department [address] [place] [address], [address], 01/06/2023 06:17:06 01/06/20 23 01/06/2023 COMP. METAB OLIC PANEL (14) calcium 9.6 mg/dL 8.2-10 .0 Not Available [facility] Department [address] [place], [address], 01/06/2023 06:17:06 01/06/20 23 01/06/2023 COMP. METAB OLIC PANEL (14) protein, total 7.1 g/dL 6.7-8. 2 Not Available [facility] Department [address] [place], [address], 01/06/2023 06:17:06 01/06/20 23 01/06/2023 COMP. METAB OLIC PANEL (14) albumin 4.5 g/dL 3.5-5. 5 Not Available [facility] Department [address] [place], [address], 01/06/2023 06:17:06 01/06/20 23 01/06/2023 COMP. METAB OLIC PANEL (14) globulin, total 2.6 g/dL 1.5-4. 5 Not Available [facility] Department [address] [place] [address], [address], 01/06/2023 06:17:06 01/06/20 23 01/06/2023 COMP. METAB OLIC PANEL (14) A/G ratio 1.8 Not Available [facility] Department [address] [place], [address], 01/06/2023 06:17:06 01/06/20 23 01/06/2023 COMP. METAB OLIC PANEL (14) bilirubin, total 1.0 mg/dL 0.0-1. 2 Not Available [facility] Department [address] [place], [address], 01/06/2023 06:17:06 01/06/20 23 01/06/2023 COMP. METAB OLIC PANEL (14) alkaline phosphatase 69.7 IU/L 42.0-1 21.0 Not Available [facility] Department [address] [place], [address], 01/06/2023 06:17:06 01/06/20 23 01/06/2023 COMP. METAB OLIC PANEL (14) AST (SGOT) 24.4 U/L 10.0-4 2.0 Not Available [facility] Department [address] [place] [address], [address], 01/06/2023 06:17:06 01/06/20 23 01/06/2023 COMP. METAB OLIC PANEL (14) ALT (SGPT) 35.5 U/L 10.0-6 0.0 Not Available [facility] Department [address] [place], [address], 01/06/2023 06:17:06 01/06/20 23 01/05/2023 HbA1c (hemo globi n A1c), blood HbA1c 8.9% Not Available In-Office Order Internal Use Only DO Not Attach Compendium DO Not Attach Compendium, Do Not Delete/merge, [id number] 01/05/2023 12:21:35 02/07/20 23 02/06/2023 gluco se, ruye rskalpana k, blood Blood Glucose: mg/dl 193 Not Available In-Off ice Order Internal Use Only DO Not Attach Compendium DO Not Attach Compendium, Do Not Delete/merge, [id number] 02/06/2023 12:22:57 Result Notes None recorded. Problems Name Problem SNOMED Code Status Onset Date Resolution Date Notes Provider Name and Address Organization Details Recorded Time Type 2 diabetes mellitus 75887504 Active 2020 SOURAV BREWER Attn: Debra marylu,[address] [facility], [place], [address], [place] [facility] 1 12:24:43 Essential hypertensio n 88512768 Active 2020 SOURAV BREWER Attn: Debra valero,[address] [facility], [place], [address], [place] [facility] 1 12:24:45 Osteomyelit is 34704673 Active 2020 SOURAV BREWER Attn: Debra valero,[address] [facility], [place], [address], [place] [facility] 1 12:24:53 Ulcer of foot 52508116 Active 2021 SOURAV BREWER Attn: Debra valero,[address] [facility], [place], [address], [place] [facility] 2 16:37:17 Retinopathy due to secondary diabetes mellitus 8271203905209 08 Active 2021 SOURAV BREWER Attn: Debra valero,[address] [facility], [place], [address], [place] [facility] 2 16:49:38 Foot callus 609161725 Active 2021 SOURAV BREWER Attn: Debra valero,[address] [facility], [place], [address], [place] [facility] 2 16:49:48 Diarrhea 19363366 Active 2022 SOURAV BREWER Attn: Debra valero,[address] [facility], [place], [address], [facility] 3 12:57:16 Problem Notes None recorded. Procedures Surgical History Date Name Laterality Status Provider Name and Address Organization Details Recorded Time 3 Routine Foot Care completed TERRY CAGE DPM [address], [place], [address], [facility] 02/12/2023 15:40:52 3 Toenail avulsion completed TERRY CAGE DPM [address], [place], [address], [facility] 02/12/2023 15:40:21 2 Ulcer Debridement completed TERRY CAGE DPM [address], [place], [address], [facility] 03/24/2022 16:09:53 2 Ulcer Debridement completed TERRY CAGE DPM [address], [place], [address], [facility] 03/10/2022 13:14:32 2 Ulcer Debridement completed TERRY CAEG DPM [address], [place], [address], [facility] 02/24/2022 09:56:09 2 Toenail avulsion completed TERRY CAGE DPM [address], [place], [address], [facility] 02/24/2022 17:21:55 2 Ulcer Debridement completed TERRY CAGE DPM [address], [place], [address], [facility] 02/10/2022 10:56:50 2 Routine Foot Care completed TERRY CAGE DPM [address], [place], [address], [facility] 01/28/2022 13:01:02 2 Ulcer Debridement completed TERRY CAGE, YUNIER [address], [place], [address], [place] [facility] 01/28/2022 13:01:11 2 Ulcer Debridement completed TERRY CAGE, SALONIM [address], [place], [address], [place] [facility] 01/23/2022 10:23:13 2 Ulcer Debridement completed SALONI HERNANDEZM [address], [place], [address], [place] [facility] 01/14/2022 10:03:27 2 Ulcer Debridement completed TERRY CAGE DPM [address], [place], [address], [place] [facility] 01/07/2022 10:04:08 2 Ulcer Debridement completed TERRY CAGE DPM [address], [place], [address], [place] [facility] 12/29/2021 10:46:22 2 Ulcer Debridement completed TERRY CAGE DPM [address], [place], [address], [place] [facility] 12/24/2021 10:02:24 2 Ulcer Debridement completed TERRY CAGE DPM [address], [place], [address], [place] [facility] 12/16/2021 14:51:52 2 Ulcer Debridement completed SALONI HERNANDEZM [address], [place], [address], [place] [facility] 12/09/2021 10:07:04 2 Ulcer Debridement completed TERRY CAGE DPM [address], [place], [address], [place] [facility] 12/01/2021 09:58:03 2 Routine Foot Care completed TERRY CAGE DPM [address], [place], [address], [place] [facility] 11/23/2021 10:44:39 2 Ulcer Debridement completed TERRY CAGE SALONIMarlys [address], [place], [address], [facility] 11/24/2021 09:54:41 2 Dermatology Excision completed TERRY CAGE SALONIMarlys [address], [place], [address], [facility] 11/24/2021 09:49:37 Imaging Results None recorded. Procedure [...] Updated DateTime 01/05/2023 185.42 cm Zahra Mccall [place] [facility] 2022 12:05:33 Date Recorded Body mass index (BMI) Body weight Systolic blood pressure Diastolic blood pressure Provider Name and Address Organization Details Last Updated DateTime 01/05/2023 32.5 kg/m2 906759.16 g 142 mm[Hg] 100 mm[Hg] SOURAV BREWER Attn: Accounting ,[address] [facility], [place], [address] , [facility] 01/05/2023 12:21:06 Date Recorded Body height Body mass index (BMI) Body weight Body temperature Heart rate Systolic blood pressure Diastolic blood pressure Provider Name and Address Organization Details Last Updated DateTime 3 185.42 cm 34.7 kg/m2 426918. 15 g 98.6 [degF] 83 /min 155 mm[Hg] 94 mm[Hg] Rohit Vazquez MA [facility] 3 09:44:59 Date Recorded Body height Body mass index (BMI) Body weight Heart rate Oxygen saturation Oxygen saturation in Arterial blood by Pulse oximetry Systolic blood pressure Diastolic blood pressure Provider Name and Address Organization Details Last Updated DateTime 3 185.42 cm 34.7 kg/m2 625810. 79 g 91 /min 97 % 97 % 130 mm[Hg] 84 mm[Hg] Zahra Mccall MA [facility] 3 12:16:11 Date Recorded Body height Heart rate Body temperature Respiratory rate Systolic blood pressure Diastolic blood pressure Provider Name and Address Organization Details Last Updated DateTime 3 185.42 cm 97 /min 98 [degF] 18 /min 150 mm[Hg] 96 mm[Hg] Garret Prado LPN [facility] 3 16:01:47 Date Recorded Body height Body mass index (BMI) Body weight Heart rate Body temperature Systolic blood pressure Diastolic blood pressure Provider Name and Address Organization Details Last Updated DateTime 3 185.42 cm 34.7 kg/m2 956550. 79 g 97 /min 98 [degF] 150 mm[Hg] 96 mm[Hg] Zahra White [facility] 3 16:34:11 Social History Question Answer Notes LastModified by Organizat ion Details LastModified Time Tobacco Smoking Status Never Smoker Mariana Ibanez LPN null, [facility] 12/29/2021 09:32:34 Do You Have An Advance [...] Or The Highest Degree You Have Received? MD33623-7 Information not available 03/06/2023 Do You Have A Medical Power Of Candy Supervisor? Yes Information not available 12/29/2021 What Was [...] mcg/0.3 mL dose 1 completed Zahra Mcc[place], [place] [facility] 01/05/2023 11:17:48 COVID-19, mRNA, LNP-S, PF, 30 mcg/0.3 mL dose 1 completed Zahra [place] [facility] 01/05/2023 11:17:48 pneumococcal polysaccharide PPV23 2 completed Jennifer San [place], [place] [facility] 08/03/2022 15:42:54 Tdap 3 completed SOURAV BREWER Attn: Accounting,[address] [facility], [place], [address], [place] [facility] 02/06/2023 13:18:01 Past Encounters Encounter ID Performer Location Encounter Start Date Encounter Closed Date Diagnosis/Indication Diagnosis SNOMED-CT Code Diagnosis ICD10 Code Diagnosis Note [id number] SOURAV BREWER [facility] [address] [place] [address] 05/14/2021 10:52:09 05/17/2021 14:19:08 Type 2 diabetes mellitus 17466078 E11.9 patient newly diagnosed with DM2. Will switch NPH to levemir for better control. f/u 2 [id number] 10. SHORT TERM GOAL <9 long-term goal <7. - check sugars daily; goal fasting <130 and 1-2 hours after meal <180. call office if sugars falling under 70. Patient aware of hypoclycem ic symptoms.- discussed diet: avoid sugars, pasta, tortillas, bread, rice, potatoes- Exercise 30 min 5x week- diabetic eye exam- foot exam at next visit Essential hypertension 47822318 I10 BP 148/90, not wnl. Patient to start lisinopril and f/u 2 weeks. BP cuff ordered for home. Advised to check BP regularly with a goal of <140/90, if BP consistent ly >140/90, advised to contact clinicDisc ussed DASH dietAdvise d weight loss and diet is best way to control BPAdvised 30 minutes of exercise minimum dailyAdvis ed tobacco, alcohol, caffeine all increase BPAdvised goal for BP is <140/90 Osteomyelitis 31509888 M 86.9 Patient had left 5th toe amputation and is following with surgeon. Abnormal feces 656808609 R19.5 Patient states over time his stool has gotten very narrow and comes out like a thin pencil. Denies blood or dark stools. R/O malignancy [id number] SOURAV BREWER [facility] [address] [place] [address] 05/28/2021 09:21:31 05/31/2021 13:51:14 Essential hypertension 45528572 I10 BP 148/90, not wnl. BP cuff ordered for home. Did not get BP cuff. Lisinopril not picked up. Adding SGLT 2 so holding lisinopril until we know what BP is. He is to message me on portal BP numbers. Advised to check BP regularly with a goal of <140/90, if BP consistent ly >140/90, advised to contact clinicDisc mayi shipleyAdvise d weight loss and diet is best way to control BPAdvised 30 minutes of exercise minimum dailyAdvis ed tobacco, alcohol, caffeine all increase BPAdvised goal for BP is <140/90 Type 2 darien betes mellitus 04504160 E11.9 patient newly diagnosed with DM2. Will switch NPH to levemir for better control. Patient sugars have been high on levemir. This morning >200. Still taking his mealtime insulin. Adding jardiance A1C control. He is to monitor sugar before meals. if less than 200 do not take mealtime insulin. I set him up for portal and he will send me glucose level this weekend. He will hold off on lisinopril as SLGT2 my help with BP control. Advised staying hydrated and keeping dry after urination toa void infections . - check sugars daily; goal fasting <130 and 1-2 hours after meal <180. call office if sugars falling under 70. Patient aware of hypoclycem ic symptoms.- discussed diet: avoid sugars, pasta, tortillas, bread, rice, potatoes- Exercise 30 min 5x week- diabetic eye exam- foot exam at next visit Osteomyelitis 24866368 M 84.9 F/U went well on monday. He is due back in 3 weeks. [id number] Zahra Mccall MA [facility] [address] [place] [address] 09/08/2021 09:34:53 09/09/2021 10:16:06 Type 2 diabetes mellitus 77963983 E11.9 patient newly diagnosed with DM2. Will switch NPH to levemir for better control. f/u 2 [id number] 10. SHORT TERM GOAL <9 long-term goal <7. - check sugars daily; goal fasting <130 and 1-2 hours after meal <180. call office if sugars falling under 70. Patient aware of hypoclycem ic symptoms.- discussed diet: avoid sugars, pasta, tortillas, bread, rice, potatoes- Exercise 30 min 5x week- diabetic eye exam- foot exam at next visit [id number] SOURAV BREWER [facility] [address] [place] [address] 11/18/2021 11:42:35 11/19/2021 10:13:13 Type 2 diabetes mellitus 55833754 E11.9 Patient compliant with medication s. He is on levemir 24 units qhs, jardaince 25 mg qd and two metformin 500mg bid. Toelrating well. no side effects. - eye exam completed. referral for retinal specialist set up. need records-fo ot exam today: abnormal monofilame nt test b/l to mid leg. abnormal propricept ion toe 3-5 on right foot. all toes on left. mutiple right healing wounds w/o infection. calluses present. Left foot toe nail fell off on exam. inter-digi gen erythema present on right foot. infection left first toe. abx started. - check sugars daily; goal fasting <130 and 1-2 hours after meal <180. call office if sugars falling under 70. Patient aware of hypoclycem ic symptoms.- discussed diet: avoid sugars, pasta, tortillas, bread, rice, potatoes- Exercise 30 min 5x week- diabetic eye exam- foot exam at next visit Essential hypertension 47514746 I10 BP 148/90, not wnl. BP cuff ordered for home. Did not get BP cuff. Lisinopril not picked up. Adding SGLT 2 so holding lisinopril until we know what BP is. He is to message me on portal BP numbers. Advised to check BP regularly with a goal of <140/90, if BP consistent ly >140/90, advised to contact clinicDisc usmemo VALDEZ dietAdvise d weight loss and diet is best way to control BPAdvised 30 minutes of exercise minimum dailyAdvis ed tobacco, alcohol, caffeine all increase BPAdvised goal for BP is <140/90 Diabetes mellitus 073176 09 E11.9 Peripheral pulse absent 881383351 R09.89 decreased peripheral pulses on b/l feet. absend pedal pulse. Sending to vasuclar surgeon. He was told by foot surgeon that his circulatio n was normal? so they never sent him to cascualr surgeon. Ulcer of foot 22050859 L 97.909 Patient with controlled diabetes and hx of osteomylet its sprin 2020 and amputation April 2021 (left foot toes) small foot ulcers on right foot. left foot first toe in erythemato ignacia and swollen. obtaining xray to assess for bone involvemen t. sending to podiatry. Toe jil fell off on exam today. Paronychia of toe 544002 002 L03.039 - toe nail came off on its own on exam today- keflex- will switch to clinda if bone involmeent or send to ER for parenteral abx. denies abx allergies- xray Overweight 457093395 E66 .3 Foot callus 252207431 L8 4 right foot callus Retinopath y due to secondary diabetes mellitus 2388720699 [address] [facility]. referred to retinal specialist . no notes on file. need records. [id number] [facility] [address] [place] [address] 11/23/2021 09:23:51 11/25/2021 10:08:39 Ulcer of foot 79446224 L97.512 Ulcer of heel 371299874 L97.422 Cellulitis of foot 88433 6007 L03.119 Osteomyeli tis of ankle AND/OR foot 66934672 M86.679 Bilateral atherosclerosis of arteries of lower limbs [id number] 5705989 I70.203 Diabetic p eripheral neuropathy 272712499 E11.42 Foot ulcer due to type 2 diabetes mellitus 7595271228 100 E11.621 Onychomycosis 932785305 B35.1 [place] - lesion 621055082 L84 Pyogenic granuloma 2002 L98.0 [id number] [facility] CAGE [facility] [address] [place] [address]61[address] 2 12/01/2021 09:23:47 12/02/2021 08:19:30 Ulcer of foot 22122044 L97.512 Ulcer of heel 757456933 L97.422 Cellulitis of foot 32920 6007 L03.119 Osteomyeli tis of ankle AND/OR foot 65125661 M86.679 Bilateral atherosclerosis of arteries of lower limbs 7312002595 8629743 I70.203 Diabetic p eripheral neuropathy 113820884 E11.42 Foot ulcer due to type 2 diabetes mellitus 2006795714 100 E11.621 Onychomycosis 920585796 B35.1 [place] - lesion 104480618 L84 Pyogenic granuloma 2002 L98.0 [id number] [facility]AGE [facility] [address] [place] [address] 76675-091 2 12/09/2021 09:34:44 12/10/2021 09:48:11 Ulcer of foot 95364410 L97.512 Ulcer of heel 483726342 L97.422 Cellulitis of foot 27555 6007 L03.119 Osteomyeli tis of ankle AND/OR foot 31710583 M86.679 Bilateral atherosclerosis of arteries of lower limbs 1476401985 9176124 I70.203 Diabetic p eripheral neuropathy 920543848 E11.42 Foot ulcer due to type 2 diabetes mellitus 6405723308 100 E11.621 Onychomycosis 380382808 B35.1 [place] - lesion 901183981 L84 Pyogenic granuloma 2002 L98.0 Cellulitis of right foot 7829775272 4685007 L03.586 [id number] TERRY CAGE [facility] [address] [place] [address] 73374-183 2 12/16/2021 14:07:38 12/17/2021 07:23:56 Ulcer of foot 89779939 L97.512 Ulcer of heel 899649014 L97.422 Cellulitis of foot 88906 6007 L03.119 Osteomyeli tis of ankle AND/OR foot 05472218 M86.679 Bilateral atherosclerosis of arteries of lower limbs 9885878310 8497428 I70.203 Diabetic p eripheral neuropathy 363513479 E11.42 Foot ulcer due to type 2 diabetes mellitus 2155061040 100 E11.621 Onychomycosis 921858112 B35.1 [place] - lesion 347924669 L84 Pyogenic granuloma 2002 L98.0 Cellulitis of right foot 7331961139 4706682 L03.192 [id number] TERRY CAGE [facility] [address] [place] [address] 72606-347 2 12/24/2021 09:43:42 12/27/2021 12:09:02 Ulcer of foot 72614354 L97.512 Ulcer of heel 472681559 L97.422 Cellulitis of foot 97996 6007 L03.119 Osteomyeli tis of ankle AND/OR foot 91801466 M86.679 Bilateral atherosclerosis of arteries of lower limbs 8822009867 8207387 I70.203 Diabetic p eripheral neuropathy 384310571 E11.42 Foot ulcer due to type 2 diabetes mellitus 5402468893 100 E11.621 Onychomycosis 294409908 B35.1 [place] - lesion 164483429 L84 Cellulitis of right foot 2102097160 6270442 L03.913 [id number] TERRY CAGE DPM [facility] [address] [place] [address] 81971-032 2 12/29/2021 09:26:06 12/29/2021 14:39:37 Ulcer of foot 68356815 L97.512 Ulcer of heel 891222402 L97.422 Cellulitis of foot 73888 6007 L03.119 Osteomyeli tis of ankle AND/OR foot 38962595 M86.679 Bilateral atherosclerosis of arteries of lower limbs 9056127137 1292273 I70.203 Diabetic p eripheral neuropathy 964572377 E11.42 Foot ulcer due to type 2 diabetes mellitus 7378036121 100 E11.621 Onychomycosis 870051438 B35.1 [place] - lesion 962287289 L84 Cellulitis of right foot 8429480759 6218782 L03.049 [id number] TERRY CAGE DPM [facility] [address] [place] [address] 42067-284 2 01/07/2022 09:23:22 01/11/2022 15:38:34 Ulcer of foot 45975256 L97.512 Ulcer of heel 745001756 L97.422 Cellulitis of foot 75541 6007 L03.119 Osteomyeli tis of ankle AND/OR foot 93214801 M86.679 Bilateral atherosclerosis of arteries of lower limbs 9368002679 6411583 I70.203 Diabetic p eripheral neuropathy 135314994 E11.42 Foot ulcer due to type 2 diabetes mellitus 8686310197 100 E11.621 Onychomycosis 950693867 B35.1 [place] - lesion 773435094 L84 Cellulitis of right foot 1807794893 2897305 L03.732 [id number] TERRY CAGE DPM [facility] [address] [place] [address] 01/14/2022 09:26:27 01/14/2022 10:53:36 Ulcer of foot 21394963 L97.512 Ulcer of heel 300231261 L97.422 Cellulitis of foot 30806 6007 L03.119 Osteomyeli tis of ankle AND/OR foot 13007682 M86.679 Bilateral atherosclerosis of arteries of lower limbs 4053451479 9567715 I70.203 Diabetic p eripheral neuropathy 176937518 E11.42 Foot ulcer due to type 2 diabetes mellitus 1047093325 100 E11.621 Onychomycosis 483771299 B35.1 [place] - lesion 485270783 L84 Cellulitis of right foot 9250096717 6647422 L03.489 [id number] TERRY CAGE DPM [facility] [address] [place] [address] 01/21/2022 09:36:52 01/24/2022 15:04:37 Ulcer of foot 79517539 L97.512 Ulcer of heel 407632644 L97.422 Cellulitis of foot 70268 6007 L03.119 Osteomyeli tis of ankle AND/OR foot 58278068 M86.679 Bilateral atherosclerosis of arteries of lower limbs 4965346812 4597391 I70.203 Diabetic p eripheral neuropathy 909752252 E11.42 Foot ulcer due to type 2 diabetes mellitus 6966076145 100 E11.621 Onychomycosis 293997908 B35.1 [place] - lesion 561218122 L84 Cellulitis of right foot 7436703578 6368257 L03.015 [id number] TERRY CAGE DPM [facility] [address] [place] [address] 52490-574 2 01/28/2022 11:27:23 02/16/2022 12:56:38 Ulcer of foot 41557865 L97.512 Ulcer of heel 900711331 L97.422 Cellulitis of foot 35440 6007 L03.119 Osteomyeli tis of ankle AND/OR foot 09374716 M86.679 Bilateral atherosclerosis of arteries of lower limbs 9941548606 8261505 I70.203 Diabetic p eripheral neuropathy 216486800 E11.42 Foot ulcer due to type 2 diabetes mellitus 2071471531 100 E11.621 Onychomycosis 591638775 B35.1 [place] - lesion 828157830 L84 Cellulitis of right foot 2680422036 1319175 L03.043 [id number] TERRY CAGE DPM [facility] [address] [place] [address] 14785-447 2 02/10/2022 10:30:22 02/11/2022 07:35:35 Ulcer of foot 15607498 L97.512 Ulcer of heel 968728037 L97.422 Cellulitis of foot 53618 6007 L03.119 Osteomyeli tis of ankle AND/OR foot 21275347 M86.679 Bilateral atherosclerosis of arteries of lower limbs 9572876516 1236557 I70.203 Diabetic p eripheral neuropathy 024198927 E11.42 Foot ulcer due to type 2 diabetes mellitus 4651275464 100 E11.621 Onychomycosis 853029428 B35.1 [place] - lesion 258419320 L84 Cellulitis of right foot 9467225315 0069369 L03.582 [id number] TERRY CAGE DPM [facility] [address] [place] [address] 73567-392 2 02/24/2022 09:22:52 02/25/2022 13:44:20 Ulcer of foot 15109159 L97.512 Ulcer of heel 568562618 L97.422 Cellulitis of foot 22828 6007 L03.119 Osteomyeli tis of ankle AND/OR foot 22084761 M86.679 Bilateral atherosclerosis of arteries of lower limbs 5446600754 5682201 I70.203 Diabetic p eripheral neuropathy 532693648 E11.42 Foot ulcer due to type 2 diabetes mellitus 7492425521 100 E11.621 Onychomycosis 344631382 B35.1 [place] - lesion 274772435 L84 Cellulitis of right foot 5549757221 2747023 L03.115 Ingrowing nail of toe of right foot 5801360224 5088277 L60.0 Abscess of toe of right foot 9005710669 2288261 L02.346 [id number] TERRY CAGE DPM [facility] [address] [place] [address] 33727-432 2 03/10/2022 09:09:57 03/15/2022 13:32:44 Ulcer of foot 04665933 L97.512 Ulcer of heel 730227023 L97.422 Cellulitis of foot 45653 6007 L03.119 Osteomyeli tis of ankle AND/OR foot 38437946 M86.679 Bilateral atherosclerosis of arteries of lower limbs 2058368758 1392331 I70.203 Diabetic p eripheral neuropathy 840179674 E11.42 Foot ulcer due to type 2 diabetes mellitus 2569718720 100 E11.621 Onychomycosis 037300226 B35.1 [place] - lesion 086395531 L84 Cellulitis of right foot 3586852680 5951605 L03.115 Abscess of toe of right foot 7657641309 0183348 L02.478 [id number] TERRY CAGE DPM [facility] [address] [place] [address] 71881-713 2 03/24/2022 15:06:24 03/29/2022 09:37:13 Ulcer of foot 31602753 L97.512 Ulcer of heel 962968970 L97.422 Cellulitis of foot 97438 6007 L03.119 Osteomyeli tis of ankle AND/OR foot 58307625 M86.679 Bilateral atherosclerosis of arteries of lower limbs 4877576197 8828543 I70.203 Diabetic p eripheral neuropathy 223797903 E11.42 Foot ulcer due to type 2 diabetes mellitus 0115785965 100 E11.621 Onychomycosis 817106791 B35.1 [place] - lesion 698218149 L84 Cellulitis of right foot 6846060113 2935707 L03.691 [id number] SOURAV BREWER [facility] [address] [place] [address] 08/02/2022 15:36:33 08/08/2022 09:40:46 Type 2 diabetes mellitus 34534592 E11.9 Patient compliant with medication s. He is on levemir 24 units qhs, jardiance 25 mg qd and two metformin 500mg bid and trulicity 3 mg, increase today. tolerating well. no side effects. - eye exam: completed. referral for retinal specialist set up. need records-fo ot exam today: abnormal , following podiatry- ppsv23: 08/02/2022- ALB/CR : WNL 11/2021- STATIN: simvastati n 20mg, may need increase Essential hypertension 35039987 I10 BP 120/82, wnl. medication regiment: losartan 50mg, atenolol 50mg qd Advised to check BP regularly with a goal of <140/90, if BP consistent ly >140/90, advised to contact clinicDisc ussed DASH dietAdvise d weight loss and diet is best way to control BPAdvised 30 minutes of exercise minimum dailyAdvis ed tobacco, alcohol, caffeine all increase BP Retinopath y due to secondary diabetes mellitus 4424345920 [address] [facility]. referred to retinal specialist . no notes on file. need records. Obesity 829821207 E66.9 BMI 33.5, Increase trulicity dose HIV screening 059381027 Z11.4 screen Administra tion of pneumococcal vaccine 44982375 Z23 administer ed today Hyperlipidemia 20628598 E78.5 [id number] SOURAV BREWER [facility] [address] [place] [address] 01/05/2023 12:04:58 01/05/2023 13:06:55 Hyperlipidemia 55915180 E78.5 Type 2 darien betes mellitus 71226199 E11.9 Patient compliant with medication s. He is on levemir 27 units qhs, jardiance 25 mg qd and two metformin 500mg bid and trulicity .75 mg,tolerat ing well. no side effects. F/U one month A1C: 8.9% (12/2022)- eye exam: completed. referral for retinal specialist set up. need records-fo ot exam today: abnormal , following podiatry- ppsv23: 08/02/2022- ALB/CR : WNL 11/2021- STATIN: simvastati n 20mg, may need increase Essential hypertension 44348223 I10 BP 142/100 (this is without atenolol). advised Checking BP at home. medication regiment: losartan 50mg, atenolol 50mg qd (re-sent) Advised to check BP regularly with a goal of <140/90, if BP consistent ly >140/90, advised to contact clinicDisc ussed COURTNEY dietAdvise d weight loss and diet is best way to control BPAdvised 30 minutes of exercise minimum dailyAdvis ed tobacco, alcohol, caffeine all increase BP Retinopath y due to secondary diabetes mellitus 9033900580 [address] [facility]. referred to retinal specialist . no notes on file. need records. Obesity 872544554 E66.9 BMI 33.5, Increase trulicity dose Diarrhea 08723617 R19.7 I have diarrhea all the time and when it's formed it think like a straw humberto es bloody stoolsdeni es fam hx colon cancercolo noscopy referral sent Screening for malignant neoplasm of colon 305843248 Z12.11 I have diarrhea all the time and when it's formed it think like a straw humberto es bloody stoolsdeni es fam hx colon cancercolo noscopy referral sent Uvular hypertrophy 27590 37106 98823 K13.79 enlarged uvula on exam [id number] TERRY CAGE DPM [facility] [address] [place] [address] 02/06/2023 09:27:38 02/14/2023 09:39:04 Cellulitis of foot 785548086 L03.116 Bilateral atherosclerosis of arteries of lower limbs 2294639049 5048248 I70.203 Diabetic p eripheral neuropathy 672621776 E11.42 Onychomycosis 818844292 B35.1 [place] - lesion 303329797 L84 Plantar fa scial fibromatosis 92033262 M72.2 Pain in left foot 013709 1156 80945 M79.672 Ingrowing nail 209540555 L60.0 Cellulitis and abscess of toe 453101841 L02.594 [id number] SOURAV BREWER [facility] [address] [place] [address] 02/06/2023 12:06:00 02/06/2023 12:32:45 Type 2 diabetes mellitus 04509174 E11.9 Patient compliant with medication s. ran out of trulicty .75mg this week. okay to increase. He is on levemir 32 units qhs, jardiance 25 mg qd and two metformin 500mg bid and trulicity 1.5 mg,tolerat ing well. no side effects. F/U one month A1C: 8.9% (12/2022)- eye exam: completed. referral for retinal specialist set up. need records-fo ot exam today: abnormal , following podiatry- ppsv23: 08/02/2022- ALB/CR : WNL 11/2021- STATIN: simvastati n 20mg, may need increase Screening colonoscopy 44 0122267 Z12.11 Administra tion of diphtheria, pertussis, and tetanus vaccine 241459190 Z23 Essential hypertension 05644671 I10 advised Checking BP at home. medication regiment: losartan 50mg, atenolol 50mg qd Advised to check BP regularly with a goal of <140/90, if BP consistent ly >140/90, advised to contact clinicDisc ussed COURTNEY dietAdvise d weight loss and diet is best way to control BPAdvised 30 minutes of exercise minimum dailyAdvis ed tobacco, alcohol, caffeine all increase BP Depression screening 171 829881 Z13.31 denies depression Obesity 002007953 E66.9 BMI 33.5, Increase trulicity dose [id number] Andrew Ellis MD [facility] [address] [place] [address] 03/06/2023 15:43:28 03/13/2023 15:21:20 Obstructive sleep apnea syndrome 46555214 G47.33 I suspect swelling of his uvula comes from snoring schedule sleep study and see him back once completed [id number] Pema Wong, SURAJ [facility] [address] [place] [address] 03/06/2023 15:44:33 03/16/2023 09:18:33 Screening for malignant neoplasm of colon 907572896 Z12.11 First colonoscop y. No FH of colon cancer.CMP in chart 01/05/23Xare lto listed in current medication s. Patient states he's not taking. Will obtain cardiac clearance. Diarrhea 75783248 R19.7 goes once/week, but when he does go it's a very large, watery BMawait colonoscop y results. If unremarkab le, may consider further testing with stool samples to rule out infection vs. IBD vs. malabsorpt ion vs. other Health Concerns Section Related Observation LastModified by Organization Detai ls LastModified Time None Recorded Concern Status LastModified by Organization Details LastModified Time None Recorded Advance Directives Directive N: Payers Encounter Date Sequence Insurance Name Policy Number Policy Linda Covered Member ID Linda Member ID Guarantor Name 01/05/2023 1 [place] [facility] (MEDICAID REPLACEMENT - HMO) [id number] Kain Montejo [id number] Kain Montejo 02/06/2023 1 [place] [facility] (MEDICAID REPLACEMENT - [place]MO) [id number] Kain Montejo [id number] Kain [place]jo 02/06/2023 1 [place] [facility] (MEDICAID REPLACEMENT - [place]MO) [id number] Kain Montejo [id number] Kain [place] 03/06/2023 1 [place] [facility] (MEDICAID REPLACEMENT - HMO) [id number] Kain Montejo [id number] Kain [place] 03/06/2023 1 [place] [facility] (MEDICAID REPLACEMENT - HMO) [id number] Kain Montejo [id number] Kain Nikia Notes Date Note Type Note Provider Name [...] units of insulin. eye exam: Seen at [facility] for laser treatment and injections on b/l eyes. next appointment May 2023. + retinopathy colonoscopy: they never called me He denies bloody stools. does have constant diarrea and when BM is formed it is thin like a straw denies cp, sob, palpitations SOURAV BREWER Attn: Accounting,[address] [place], [address], [place] 01/05/2023 13:00:07 02/06/2023 text/html Patient presents today [...] Patient reports PCP office was notified that [facility] accepts the Community plan. TERRY CAGE DPM [address] [place], [address], [place] 02/12/2023 15:48:04 02/06/2023 text/html Kain is a 47 YO M pmhxz osteomyelitis, DM2 (controlled), HTN, obesity, PVD cardiology: follows Dr Carrera and was last seen in 12/2021. needs to schedule. not checking BP at home. needs cuff. podiatry: per notes, he has cellulitits. DM: Numbers have been >200 once he ran out of trulicity .75mg. agrees to increase dose today. Currently injecting 23 units of insulin. eye exam: Seen at [facility] for laser treatment and injections on b/l eyes. next appointment May 2023. + retinopathy colonoscopy: they never called me He denies bloody stools. does have constant diarrea and when BM is formed it is thin like a straw denies cp, sob, palpitations SOURAV BREWER Attn: Accounting,[address] [facility], [place], [address], [facility] 02/06/2023 13:20:15 03/06/2023 text/html patient complaining of swelling of his uvula. He says that sometimes it swells and flops on his tongue. It is worse in the mornings seems to come and go. He does snore. He has never been tested for sleep apnea. He complains of nasal congestion drainage but that is unchanged over long period of time. Andrew Ellis MD [address], [place], [address], [facility] 03/06/2023 16:09:46 03/06/2023 text/html Patient with PMH x of diarrhea, HTN, foot callus, right foot ulcer, and retinopathy due to T2DM presents today for screening colonoscopy. No prior colonoscopy. No FH of colon cancer. No FH of other cancers. Patient does not smokes and drinks alcohol on occasion. Past surgical history includes toe amputation and left foot screw fixation. DOLLY BENJAMIN [address] [place], [address], [facility] 03/06/2023 17:04:36
--- OUTSIDE RECORDS SUMMARY | 2024-12-05 01:00 | XMS_ITS | CONTINUITY OF CARE DOCUMENT ---
Author Name wild rome Address Unknown Organization [facility] Office Address [address] [address] [place] [address] Phone [phone] Care Team Providers Care Entertainment Lawyer Name Role Phone Debi GONZALEZ, Chapito Unavailable DAINA PA-C, CLYDE Unavailable DAINA PA-C, CLYDE Unavailable [phone] PROBLEMS Condition Status Date Provider Notes PVD; active Chapito Carrera MD CAD; active Chapito Carrera MD Diastolic dysfunction active Chapito Carrera MD Hyperlipidemia;with high crp active Chapito Carrera MD Hypertension active Chapito Carrera MD Diabetes, Type 2 active Chapito Carrera MD Diabetic foot ulcer active Chapito Carrera MD neg ssenslae Dyspnea on exertion completed - Chapito Carrera MD Obesity active Chapito Carrera MD Frequent unifocal PVCs active Chapito Carrera MD fatty liver active Chapito Carrera MD renal stone active Chapito Carrera MD Screening active Chapito Carrera MD FAMILY HISTORY OF HEART DISEASE active Chapito Carrera MD mom and dad Exposure to SARS-associated coronavirus;had vaccine active Chapito Carrera MD Cough due to AMNA inhibitors active Chapito allred MD ? Sleep apnea active Chapito Carrera MD ENCOUNTERS Date Type Provider Location Encounter Diag nosis - In-person encounter Office Visit Chapito Carrera MD [facility] Dyspnea on exertionfatty liverrenal stoneScreeningFAMILY HISTORY OF HEART DISEASEExposure to SARS-associated coronavirus;had vaccineCough due to AMNA inhibitors? Sleep apnea - In-person encounter Office Visit Chapito Carrera MD [facility] HypertensionDiabetes, Type 2Diabetic foot ulcerObesityFrequent unifocal PVCs VITAL SIGNS Date Observation Value Provider Body Mass Index (Ratio) 32.32 kg/m2 Jyoti Carrera MD blood pressure, cuff size regular Isamar HaqueSarah Jerrell blood pressure, diastolic 91 mm[Hg] Isamar HaqueSarah Jerrell blood pressure, systolic 120 mm[Hg] Mercedez gomezaaron Jerrell oxygen saturation, oximetry 98 % Danielmaximilianmojgan Allan respiratory rate E&M 18 /min Willy Allan pulse rate 82 /min Elaine seymour weight E&M 245 [lb_av] Elaine seymour height E&M 73 [in_i] Elaine seymour Body Mass Index (Ratio) 31.66 kg/m2 Jyoti Carrera MD blood pressure, diastolic 91 mm[Hg] Li [facility] blood pressure, systolic 134 mm[Hg] Nellie [facility] blood pressure, diastolic 91 mm[Hg] Ca therine [place] blood pressure, systolic 134 mm[Hg] Cat herine [place] oxygen saturation, oximetry 98 % Maryan [place] respiratory rate E&M 16 /min Catheri ne Amador pulse rate 82 /min Maryan Amador blood pressure, cuff size regular Ca therine [place] weight E&M 240 [lb_av] Maryan [place] height E&M 73 [in_i] Maryan [place] ALLERGIES Allergy Name Onset Date Reaction Criticality Status ZESTRIL coughj Low Criticality active RESULTS Date Observation Value Provider Reference Range Interpretation Location 7 c-reactive protein, quantitative, serum 2.20 mg/L [facility] 0.00-3.00 7 pro brain natriuretic peptide 154 pg/mL [facility] 0-121 High 7 lipoprotein, beta, serum, point, quantitative, calculated 84 mg/dL [facility] 0-99 7 HDL cholesterol, serum 40 mg/dL [facility] >39 7 triglyceride, serum, random 112 mg/dL [facility] 0-149 7 cholesterol, serum 144 mg/dL [facility] 639-370 2621/02/2 7 alanine aminotransferase (SGPT), serum 18 1/L [facility] 0-44 7 aspartate aminotransferase (SGOT), serum 15 1/L [facility] 0-40 7 alkaline phosphatase, serum 74 1/L [facility] 44-121 7 bilirubin, serum, total 0.7 mg/dL [facility] 0.0-1.2 7 albumin/globulin ratio, serum 1.6 [facility] 1.2-2.2 7 globulin, serum 2.8 [facility] 1.5-4.5 7 albumin, serum 4.5 g/dL [facility] 4.0-5.0 7 protein, total, serum 7.3 g/dL [facility] 6.0-8.5 7 calcium, serum 9.6 mg/dL [facility] 8.7-10.2 7 carbon dioxide, venous blood 21 mmol/L [facility] 20-29 7 chloride, serum 105 mmol/L [facility] 96-106 7 potassium, serum 4.8 mmol/L [facility] 3.5-5.2 7 sodium, serum 143 mmol/L [facility] 947-110 0831/02/2 7 urea nitrogen/creatinine ratio, serum 16 [facility] 9-20 7 eGFR if 121 mL/min/{1 .73_m2} [facility] >59 7 eGFR if not 105 mL/min/{1 .73_m2} [facility] >59 7 creatinine, serum 0.81 mg/dL [facility] 0.76-1.27 7 urea nitrogen, blood 13 mg/dL [facility] 6-24 7 blood glucose, random 131 mg/dL [facility] 65-99 High 7 microalbumin/creatin ine ratio, urine <4 mg/g creat [facility] 0-29 7 microalbumin, random, urine <3.0 ug/mL [facility] Not Estab. 7 creatinine, random, urine 72.5 mg/dL [facility] Not Estab. HISTORY OF MEDICATION USE Medication Status Instructions Dates Provider Indications Com ments Tenormin 25 mg tablet active Take 1 tablet by mouth once a day 7 Cahpito Carrera MD ezetimibe 10 mg tablet active once a day Chapito Carrera MD Crestor 40 mg tablet active Take 1 tablet by mouth once a day 7 Chapito Carrera MD Jardiance 10 mg tablet active Take 1 tablet by mouth once a day TAKE 1 TABLET BY MOUTH ONCE DAILY 7 Chapito Carrera MD Trulicity 3 mg/0.5 mL pen injector active Inject 1 pen injector subcutaneously once a week 7 Chapito Carrera MD losartan 50 mg tablet active TAKE 1 TABLET BY MOUTH ONCE DAILY FOR 90 DAYS Chapito Carrera MD Zetia 10 mg tablet completed Take 1 tablet once a day 7 - 7 Chapito Carrera MD Xarelto 2.5 mg tablet active TAKE 1 TABLET BY MOUTH TWICE DAILY PRESCRIBED FOR CARDIOVASCULAR PROTECTION 7 Chapito Carrera MD aspirin 81 mg tablet,chewable active once a day Chapito Carrera MD Trulicity 1.5 mg/0.5 mL pen injector completed Inject 1 pen injector subcutaneously once a week 3 - 7 Chapito Carrera MD Jardiance 25 mg tablet completed TAKE 1 TABLET BY MOUTH ONCE DAILY - 7 Maryan Amador Levemir FlexTouch U-100 Insuln 100 unit/mL (3 mL) insulin pen active Maryan Amador simvastatin 20 mg tablet completed - 7 Maryan Amador metformin 500 mg tablet active twice a day Chapito Carrera MD lisinopril 10 mg tablet completed - 7 Maryan [place] cephalexin 500 mg capsule completed - 7 Maryan Amador SOCIAL HISTORY Date Observation Value Provider social history reviewed E&M revi ewed - no changes required Chapito Carrera MD Exercise counseling yes Ajay Allan social history reviewed E&M revi ewed - no changes required Elsi Wells NP smoking status Never smoker Maryan Nicole s INSURANCE PROVIDERS Payer name Policy type / Coverage type [place] red green party ID [facility] [id number] TREATMENT PLAN Date Name Performer [id number],C,mild by sonal H dede Carrera MD [id number],S,eng uacr Jyoti Carrera MD [id number],S,sx Chapito fuentes MD [id number],S, H is updated medication list for this problem includes: Zetia 10 Mg Tablet (Ezetimibe) ..... Take 1 tablet once a day Simvastatin 20 Mg Tablet (Simvastatin) C HOL: 144 (11/28/2021) HDL: 40 (11/28/2021) Chapito Carrera MD [id number],S, Chapito tobar MD [id number],S, s core 1611 neg nuc Chapito Carrera MD [id number],S,n eg sensilsie A 1C 7.1. 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 Family hx father heart disease, massive [place] in 60s. Pt is HTN, DM. Elsi Wells NP [id number],C,Holter 24 hr Elsi Wells NP [id number],C,A 1C 7.1 H is updated medication list for this problem includes: Aspirin 81 Mg Tablet,chewable (Aspirin) Trulicity 1.5 Mg/0.5 Ml Pen Injector (Dulaglutide) ..... Inject 1 pen injector subcutaneously once a week Jardiance 25 Mg Tablet (Empagliflozin) ..... Take 1 tablet by mouth once daily Levemir Flextouch U-100 Insuln 100 Unit/ml (3 Ml) Insulin Pen (Insulin detemir u-100) Metformin 500 Mg Tablet (Metformin) Lisinopril 10 Mg Tablet (Lisinopril) Labs Elsi Wells NP [id number],C,A 1C 7.1. Multiple nonhealing ulcerations both feet L abs S ensilace, ABIs Elsi Wells GAS TECHNICIAN [id number],C,R PM H is updated medication list for this problem includes: Aspirin 81 Mg Tablet,chewable (Aspirin) Lisinopril 10 Mg Tablet (Lisinopril) Elsi Wells GAS TECHNICIAN :mild by sonal Chapito Carrera MD Cardiology:eng uacr Chapito tobar MD Cardiology:sx Chapito Carrera MD Cardiology: H is updated medication list for this problem includes: Zetia 10 Mg Tablet (Ezetimibe) ..... Take 1 tablet once a day Simvastatin 20 Mg Tablet (Simvastatin) C HOL: 144 (11/28/2021) HDL: 40 (11/28/2021) Chapito Carrera MD Cardiology Chapito Carrera MD Cardiology: s core 1611 neg nuc Chapito Carrera MD Cardiology:neg sensi lsie A 1C 7.1. 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 Family hx father heart disease, massive [place] in 60s. Pt is HTN, DM. Elsi Wells NP Cardiology--seen with GAS TECHNICIAN:Holter 24 hr Elsi Wells NP Cardiology--seen wit h GAS TECHNICIAN:A1C 7.1 H is updated medication list for this problem includes: Aspirin 81 Mg Tablet,chewable (Aspirin) Trulicity 1.5 Mg/0.5 Ml Pen Injector (Dulaglutide) ..... Inject 1 pen injector subcutaneously once a week Jardiance 25 Mg Tablet (Empagliflozin) ..... Take 1 tablet by mouth once daily Levemir Flextouch U-100 Insuln 100 Unit/ml (3 Ml) Insulin Pen (Insulin detemir u-100) Metformin 500 Mg Tablet (Metformin) Lisinopril 10 Mg Tablet (Lisinopril) Labs Elsi Wells GAS TECHNICIAN Cardiology--seen wit h GAS TECHNICIAN:A1C 7.1. Multiple nonhealing ulcerations both feet L abs S ensilace, ABIs Elsi Wells GAS TECHNICIAN Cardiology--seen wit h GAS TECHNICIAN:RPM H is updated medication list for this problem includes: Aspirin 81 Mg Tablet,chewable (Aspirin) Lisinopril 10 Mg Tablet (Lisinopril) Elsi Wells GAS TECHNICIAN Date Name Sleep Study Home Carotid Duplex Bilat eral RPM (remote patient monitoring) Holter Monitor [address], Coronary Calcium Score RPM (remote patient monitoring) CRP, high sensitivit y PROBNP, N TERMINAL LIPID PANEL COMPREHENSIVE METABO LIC PANEL, W/EGFR Microalb/Creatinine Urine, Random Arterial Duplex Bi-L ower EX Arterial - SENSILASE Stress Regadenoson Holter Monitor 24 Hr Complete Echo HISTORY OF PROCEDURES Procedure Date Procedure Name Provider Procedure Notes S tatus CT- Coronary CA score Chapito Carrera MD completed EKG Chapito Carrera MD complete d
[2024-12-05] MEDS: ACETAMINOPHEN 500 MG TABLET 1000 MG PO (06:30)
[2024-12-05] MEDS: KETOROLAC 15 MG/ML VIAL (*BKC) IV PUSH (06:30)
[2024-12-05] MEDS: LACTATED RINGERS 1,000 ML 30 ML IV CONT (06:30)
[2024-12-05 06:46] LABS: Glucose Point of Care 102 mg/dl (65-105)
--- NOTE | 2024-12-05 06:54 | WPDANESEPPF ---
Anes - Initial Pre Proc Eval Procedure: Operation Date: 12/05/24 07:30 Proposed Procedures p Right Hallux Metatarsophalangeal Arthrodesis, Excision of Sesamoid - Akbar Ladd MD Date/Time: 12/05/24 06:54 Surgeon: Akbar Ladd MD Pre Op Diagnosis: right hallux rigidus, arthritis, rt sesamoiditis Patient Data Age: 49 Gender: M Height: 1.85 m Weight: 106 kg Allergies Allergy/AdvReac Type Severity Reaction Status Date / Time No Known Allergies Allergy Verified 11/25/24 09:15 Home Medications ?Medication ?Instructions ?Recorded ?Confirmed ?Type insulin human U-100 NPH-regulr 15 unit subcut BID 08/08/24 11/25/24 History 70-30 mix 100 unit/mL subcutaneous susp (Novolin 70/30 U-100 Insulin) metformin 500 mg tablet,extended 500 mg PO BID 08/08/24 11/25/24 History release 24 hr dapagliflozin propanediol 10 mg 10 mg PO DAILY 11/25/24 11/25/24 History tablet (Farxiga) dulaglutide 0.75 mg/0.5 mL 0.75 mg subcut WEEKLY 11/25/24 11/25/24 History subcutaneous pen injector (Trulicity) ferrous sulfate 325 mg (65 mg 325 mg PO DAILY 11/25/24 11/25/24 History iron) tablet (FeroSul) lisinopril 10 mg tablet 10 mg PO .daily] 11/25/24 11/25/24 History Laboratory Tests 12/05/24 06:41 POC Capillary Glucose 102 mg/dl (65-105) Patient hx anesthesia problems: none Family hx anesthesia problems: none Results Review: All pre-operative results and documents have been reviewed as part of the pre-operative evaluation. [facility] Past Medical History Medical History Bacteremia Erectile dysfunction associated with type 2 diabetes mellitus Obesity (BMI 30.0-34.9) Diabetic peripheral neuropathy Osteomyelitis of toe of left foot (2020) Left 5th toe Type 2 diabetes mellitus (~04/2021) Officially diagnosed in 2020 but patient already had a foot wound and osteomyelitis of the left toe at that time Ulcer of left fifth toe due to diabetes mellitus (04/2021) With associated cellulitis Glaucoma Surgical History Surgical History History of amputation of toe Left 5th toe History of ankle surgery Family History Family History Father Acute myocardial infarction, Onset Age: 62 Heart disease Tobacco use Mother , She in her 70s Brain cancer Lung cancer Carcinoma of colon Grandparent Diabetes mellitus Other Arthritis Hypertension Neuropathy Stomach cancer Social History Social History Social History: Patient is single and lives alone. He states he has never been . Patient works for a [employer]. He has his (non biologic) son part-time. He is a lifelong nonsmoker. He denies history of significant alcohol use or illicit substance use. Code status: DNR/DNI (per patient request) Surrogate decision maker: Sole Farnsworth (niece) Smoking status: Never smoker Second hand tobacco smoke exposure: No Alcohol intake: current Alcohol use details: few per yeara Substance use: never Substance use type: does not use Do You Feel Safe in your Home?: Yes Lack of Transportation: No Lack of Food: Never True Current Housing: I Have Housing Concerned About Future Housing: No Difficulty Paying Gas/Electric Bills: No Difficulty Paying for Meds: No Currently Unemployed: No Education: High School Diploma/GED Difficulty w/ Childcare or Family Care: No Living arrangements: alone Additional living arrangements comments: Son lives with him cap parts cutter Occupation/Education: occupation 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 Informed Consent: The patient's anesthetic plan and its attendant risks and benefits were discussed with the patient/family/POA. Questions were solicited and answers provided to the satisfaction of the patient/family/POA.
--- NOTE | 2024-12-05 07:09 | WPDHPUPDATE1 ---
History and Physical Update Update Date/Time: 12/05/24 07:09 History and Physical has been reviewed, including an updated exam of the patient. There are NO changes in the patient's condition. Risks, benefits, and alternatives have been discussed and questions answered. Patient agrees to proceed with procedure.
--- NOTE | 2024-12-05 07:24 | P.OP_ITS ---
Procedure Note - Detailed Date of Procedure 12/05/24 Pre-op Diagnosis right hallux rigidus, arthritis, rt sesamoiditis Post-op Diagnosis Same Procedure Performed RT hallux mtp arthrodesis Surgeon Akbar Ladd MD Patient Experience Coordinator Richard Anesthesia General Indications 49 yo man with diabetes, neuropathy, rt hallux deformity. Unable to wear shoes, at risk for ulceration/ infection. Description of Procedure Patient identified in the preoperative holding. Informed consent given. Operative extremity marked. Patient received intravenous antibiotics. Patient brought to the operating room where underwent general anesthetic by anesthesia team. Positioned supine on operating room table. Time-out performed confirming the patient, site of the surgery and the plan. foot prepped and draped in the usual sterile surgical fashion using a ChloraPrep skin solution. Foot was exsanguinated with an Esmarch bandage and a calf tourniquet was inflated to 225 mmHg. Longitudinal incision made over the dorsum of the hallux metatarsophalangeal joint with a 15 blade knife. Hemostasis controlled with electrocautery. Dorsal capsulotomy performed and reflected off the medial lateral aspect of the distal 1st metatarsal. Joint was exposed and large dorsal osteophyte as well as erosion of the dorsal portion of the metatarsal articular surface noted. Advanced degenerative changes through the joint and near complete loss of the metatarsal head articular surface. Large osteophytes medially and plantarward. Guide pin placed in distal 1st metatarsal and reaming of the metatarsal head done with the appropriate sized Reamer. Guide pin used to feather the subchondral bone. Osteotomes used to resect the exostosis from the dorsal and medial portions of the metatarsal head. Wound thoroughly irrigated with solution. Dorsal osteophyte from the proximal phalanx also removed with rongeur. Guide pin then placed in the proximal phalanx and reaming of the articular surface done up to the appropriate size. Guide pin used to feather the subchondral bone of the proximal phalanx. Thorough irrigation of the wound. Metatarsophalangeal joint was then reduced and provisionally pinned. The alignment was checked with image intensification and confirmed. Fixation then achieved with a dorsal locking plate and screws. Compression device employed providing compression across the arthrodesis site. Compression across lag screw then placed from distal to proximal and confirmed with image intensification. Medial sesamoid identified and retractors placed. Due to the degenerative change and prominence this was sharply excised from the surrounding soft tissue with a 15 blade knife and passed off. Wound thoroughly irrigated once again. Capsulotomy repaired with 2 O Vicryl interrupted suture. Subcutaneous tissue repaired with 3 0 Monocryl interrupted suture and skin repaired with 4 O nylon running suture. Sterile dressing applied. Tourniquet released and good capillary refill in all toes ensured. The patient was then awoken from anesthesia, extubated and taken to the recovery room in stable condition. All sponge, needle, instrument counts were correct at the end of the case. Implants Arthrex mtp fusion plate and screws Estimated Blood Loss 5 Tourniquet Time Total Tourniquet Time: 60 Drains No Packing No Pathology None sent Complications None Condition Stable Disposition PACU [facility] Billing Surgery - Charge Forward: Surgery Billing ([id number])
[2024-12-05] MEDS: ceFAZolin 2 GM/D5W 50 ML 2 GM/50 ML BAG IVPB (07:29)
[2024-12-05] MEDS: BUPivacaine HCL 0.5% PF 30 ML VIAL INFILTRATE (07:54)
[2024-12-05 09:30] LABS: Glucose Point of Care 113 mg/dl (65-105)
== END 2024-12-05 10:46 | disposition home or self-care (01) ==
PROVIDERS: Visit Provider Orthopaedic Surgery
PROC: (CPT 28750; principal; 2024-12-05 07:30)
DX: M20.21 Hallux rigidus, right foot (principal); M25.871 Other specified joint disorders, right ankle and foot; M19.071 Primary osteoarthritis, right ankle and foot; E11.42 Type 2 diabetes mellitus with diabetic polyneuropathy; E66.9 Obesity, unspecified; Z68.31 Body mass index [BMI] 31.0-31.9, adult
CPT/HCPCS: 28750; 82948; 99199; A9270; C1713; C1769; J0690; J1100; J1885; J2003; J2250; J2405; J2704; J3010; J7120

== ENCOUNTER 2025-01-03 07:06 | Outpatient (RCR) | payer OTHER, SELFPAY ==
[2024-11-14 00:08] VITALS: BP 90/64; PULSE 115; TEMP 36.1; O2SAT 98
--- NOTE | 2024-11-15 09:17 | P.PNWOUND_ITS ---
Wound Care Note Date/Time: 11/15/24 09:00 History: 49-year-old with right diabetic foot ulcer and osteomyelitis, follow-up appointment [facility]. Wound VAC Stopped Last week. dressing changes started. Patient reports no interval problems. 5 weeks status post initial graft placement. repeat graft 3 + 2 + 1 week ago. Wound history: 12 weeks status post I&D right ankle and foot. 4 months status post 2nd ray amputation, open. Graft application to wound 5 weeks ago and 3,2, 1 weeks ago. Currently with dressing in place. Wound approximation: No ( Open wound dorsal lateral aspect rt ft with tunneling at the sinus tarsi ) Wound width: 1.2 cm Wound length: 6.3 cm Wound depth: 0.1 cm Drainage: mild serous Surrounding tissue appearance: clean and dry, mild swelling, no erythema or warmth. Percentage granulation tissue: 100 Treatment/Procedures: synthetic skin and tissue application 2 week ago. Dressings: dressing replaced over graft Assessment and Plan Assessment and plan (1) Septic arthritis of ankle and foot region: Code(s): M00.9 - Pyogenic arthritis, unspecified Status: Acute Assessment and Plan: 12 weeks status post I and D of right ankle and 2nd ray amputation. dressing changes. Overall dimensions of the wound noted. No signs of worsening infection. Underwent debridement and graft application 1 week ago. Continue with dressing changes. Follow-up One week for re-evaluation. (2) Amputated toe of right foot: Code(s): S98.131A - Complete traumatic amputation of one right lesser toe, initial encounter Status: Acute Assessment and Plan: resultant hallux varus and degenerative changes. Discussed with patient. Indicated for MTP arthrodesis. Await healing foot. (3) Acute right ankle pain: Code(s): M25.571 - Pain in right ankle and joints of right foot Status: Acute (4) Bacteremia: Code(s): R78.81 - Bacteremia Status: Acute (5) Necrotizing fasciitis of lower leg: Code(s): M72.6 - Necrotizing fasciitis Status: Acute (6) Osteomyelitis of right foot: Qualifiers: Osteomyelitis type: other acute Qualified Code(s): M86.171 - Other acute osteomyelitis, right ankle and foot Code(s): M86.9 - Osteomyelitis, unspecified Status: Acute Exam Const: General: alert and awake Orientation/consciousness: patient oriented x3 Limitations: no limitations Extrem: Right lower extremity: ankle Details: tenderness Location: of the lateral malleolus and of the medial malleolus, swelling Details: laterally and posteriorly, abnormal ROM Details: pain with active ROM Details: with plantar flexion and with dorsiflexion and pain with passive ROM Details: with plantar flexion and with dorsiflexion, warmth and other (redness, laterally ); no ecchymosis and foot ( 2nd toe amputation) Details: abnormal to inspection, vascular exam Details: abnormal capillary refill Location: of all toes; dorsalis pedis pulse absent and posterior tibial pulse absent and motor-sensory exam Details: light-touch abnormal; abnormal capillary refill Other: Wound on the dorsal lateral aspect of the right foot, dressing removed today. Additional wound at the side of the 2nd toe amputation fully healed. Wound depth 0.1 cm at the sinus tarsi. Wound length 6.3x1.2 cm. Serous drainage. improved granulation tissue over the sinus tarsi. Remainder of wound with 100% granulation tissue. No slough. Psych: Mental Status: mental status grossly normal
--- NOTE | 2024-11-19 09:59 | WPDWOUNDNOTE ---
Wound Care Note Date/Time: 11/19/24 09:59 History: 49-year-old with right diabetic foot ulcer and osteomyelitis, follow-up appointment [facility]. Wound VAC Stopped Last week. dressing changes started. Patient reports no interval problems. 6 weeks status post initial graft placement. repeat graft 4 + 3 + 2 week ago. Wound history: 12 weeks status post I&D right ankle and foot. 4 months status post 2nd ray amputation, open. Graft application to wound 6 weeks ago and 4,3, 2 weeks ago. Currently with dressing in place. Wound approximation: No ( Open wound dorsal lateral aspect rt ft with tunneling at the sinus tarsi ) Wound width: 1.0 cm Wound length: 5.0 cm Wound depth: 0.1 cm Drainage: mild serous Surrounding tissue appearance: clean and dry, mild swelling, no erythema or warmth. Percentage granulation tissue: 100 Treatment/Procedures: synthetic skin and tissue application 3 week ago. Dressings: dressing replaced Assessment and Plan Assessment and plan (1) Septic arthritis of ankle and foot region: Code(s): M00.9 - Pyogenic arthritis, unspecified Status: Acute Assessment and Plan: 13 weeks status post I and D of right ankle and 2nd ray amputation. dressing change. Overall dimensions of the wound noted. No signs of worsening infection. Hypergranulation at the distal aspect which was treated with silver nitrate today. Continue with dressing changes. Follow-up days for re-evaluation. (2) Amputated toe of right foot: Code(s): S98.131A - Complete traumatic amputation of one right lesser toe, initial encounter Status: Acute Assessment and Plan: resultant hallux varus and degenerative changes. Discussed with patient. Indicated for MTP arthrodesis. Await healing foot. Wound Much improved. New radiographs today show severe hallux varus and loss of the articular surface. Indicated for MTP arthrodesis and debulking of the plantar tissue including medial sesamoid. (3) Acute right ankle pain: Code(s): M25.571 - Pain in right ankle and joints of right foot Status: Acute (4) Bacteremia: Code(s): R78.81 - Bacteremia Status: Acute (5) Necrotizing fasciitis of lower leg: Code(s): M72.6 - Necrotizing fasciitis Status: Acute (6) Osteomyelitis of right foot: Qualifiers: Osteomyelitis type: other acute Qualified Code(s): M86.171 - Other acute osteomyelitis, right ankle and foot Code(s): M86.9 - Osteomyelitis, unspecified Status: Acute Plan Discussed nonoperative and operative treatment options with the patient. Risks and benefits of each as well as alternatives were reviewed. All of the patient's questions were answered. The risks of surgery reviewed including but not limited to: Neurovascular damage, wound complication, infection, blood clot, pulmonary embolus, stroke, myocardial infarction, and anesthetic risks up to and including . Continued pain and possible dysfunction were explained. Specific risks of the procedure including later recurrence of deformity. No guarantees were offered. If hardware used, discussed risk of failure/ breakage and possible need for removal. If complications occur, the patient understands the need for further treatment, possible further surgery. Patient verbalizes understanding and wishes to proceed. PLAN: right hallux metatarsophalangeal arthrodesis with possible medial sesamoidectomy. Exam Const: General: alert and awake Orientation/consciousness: patient oriented x3 Limitations: no limitations Extrem: Right lower extremity: ankle Details: tenderness Location: of the lateral malleolus and of the medial malleolus, swelling Details: laterally and posteriorly, abnormal ROM Details: pain with active ROM Details: with plantar flexion and with dorsiflexion and pain with passive ROM Details: with plantar flexion and with dorsiflexion, warmth and other (redness, laterally ); no ecchymosis and foot ( 2nd toe amputation) Details: abnormal to inspection, vascular exam Details: abnormal capillary refill Location: of all toes; dorsalis pedis pulse absent and posterior tibial pulse absent and motor-sensory exam Details: light-touch abnormal; abnormal capillary refill Other: Wound on the dorsal lateral aspect of the right foot, dressing removed today. Additional wound at the side of the 2nd toe amputation fully healed. Wound depth 0.1 cm at the sinus tarsi. Wound length 5x1 cm. Serous drainage. improved granulation tissue over the sinus tarsi. Remainder of wound with 100% granulation tissue. No slough. Psych: Mental Status: mental status grossly normal
--- NOTE | 2024-11-22 08:39 | WPDWOUNDNOTE ---
Wound Care Note Date/Time: 11/22/24 08:39 <CARY Almanzar - Last Filed: 11/22/24 08:40> History: 49-year-old with right diabetic foot ulcer and osteomyelitis, follow-up appointment [facility]. Wound VAC Stopped Last week. dressing changes started. Patient reports no interval problems. 7 weeks status post initial graft placement. repeat graft 5 + 4 + 3 week ago. <Akbar Ladd MD - Last Filed: 11/22/24 09:03> Wound history: 13 weeks status post I&D right ankle and foot. 4 months status post 2nd ray amputation, open. Graft application to wound 6 weeks ago and 5,4, 3 weeks ago. Currently with dressing in place. <Akbar Ladd MD - Last Filed: 11/22/24 09:03> Wound approximation: No ( Open wound dorsal lateral aspect rt ft with tunneling at the sinus tarsi ) <Akbar Ladd MD - Last Filed: 11/22/24 09:03> Wound width: 1.0 cm <Akbar Ladd MD - Last Filed: 11/22/24 09:03> Wound length: 3.0 cm <Akbar Ladd MD - Last Filed: 11/22/24 09:03> Wound depth: 0.1 cm <Akbar Ladd MD - Last Filed: 11/22/24 09:03> Drainage: mild serous <Akbar Ladd MD - Last Filed: 11/22/24 09:03> Surrounding tissue appearance: clean and dry, mild swelling, no erythema or warmth. <Akbar Ladd MD - Last Filed: 11/22/24 09:03> Percentage granulation tissue: 100 <Akbar Ladd MD - Last Filed: 11/22/24 09:03> Treatment/Procedures: synthetic skin and tissue application 3 week ago. <Akbar Ladd MD - Last Filed: 11/22/24 09:03> Dressings: dressing replaced <Akbar Ladd MD - Last Filed: 11/22/24 09:03> Assessment and Plan Assessment and plan (1) Septic arthritis of ankle and foot region: Code(s): M00.9 - Pyogenic arthritis, unspecified <CARY Almanzar - Last Filed: 11/22/24 08:40> Status: Acute <CARY Almanzar - Last Filed: 11/22/24 08:40> Assessment and Plan: 13 weeks status post I and D of right ankle and 2nd ray amputation. dressing change. Overall dimensions of the wound noted. No signs of worsening infection. Hypergranulation at the distal aspect which was treated with silver nitrate at last dressing. Continue with dressing changes. Follow-up 7 days for re-evaluation. <Akbar Ladd MD - Last Filed: 11/22/24 09:03> (2) Amputated toe of right foot: Code(s): S98.131A - Complete traumatic amputation of one right lesser toe, initial encounter <CARY Almanzar - Last Filed: 11/22/24 08:40> Status: Acute <CARY Almanzar - Last Filed: 11/22/24 08:40> Assessment and Plan: resultant hallux varus and degenerative changes. Discussed with patient. Indicated for MTP arthrodesis. Await healing foot. Wound Much improved. New radiographs show severe hallux varus and loss of the articular surface. Indicated for MTP arthrodesis and debulking of the plantar tissue including medial sesamoid. <Akbar Ladd MD - Last Filed: 11/22/24 09:03> (3) Acute right ankle pain: Code(s): M25.571 - Pain in right ankle and joints of right foot <CARY Almanzar - Last Filed: 11/22/24 08:40> Status: Acute <CARY Almanzar - Last Filed: 11/22/24 08:40> (4) Bacteremia: Code(s): R78.81 - Bacteremia <CARY Almanzar - Last Filed: 11/22/24 08:40> Status: Acute <CARY Almanzar - Last Filed: 11/22/24 08:40> (5) Necrotizing fasciitis of lower leg: Code(s): M72.6 - Necrotizing fasciitis <Chrissy MarcosRudy ViridianaCARY cortez - Last Filed: 11/22/24 08:40> Status: Acute <Chrissy OsborneCARY cortez - Last Filed: 11/22/24 08:40> (6) Osteomyelitis of right foot: Qualifiers: Osteomyelitis type: other acute Qualified Code(s): M86.171 - Other acute osteomyelitis, right ankle and foot <Chrissy CARY Thompson - Last Filed: 11/22/24 08:40> Code(s): M86.9 - Osteomyelitis, unspecified <Chrissy MarcosRudy ViridianaCARY cortez - Last Filed: 11/22/24 08:40> Status: Acute <Chrissy Osbornediego [employer] C[employer] PROFESSIONAL - Last Filed: 11/22/24 08:40> Assessment and Plan: Discussed nonoperative and operative treatment options with the patient. Risks and benefits of each as well as alternatives were reviewed. All of the patient's questions were answered. The risks of surgery reviewed including but not limited to: Neurovascular damage, wound complication, infection, blood clot, pulmonary embolus, stroke, myocardial infarction, and anesthetic risks up to and including . Continued pain and possible dysfunction were explained. Specific risks of the procedure including later recurrence of deformity. No guarantees were offered. If hardware used, discussed risk of failure/ breakage and possible need for removal. If complications occur, the patient understands the need for further treatment, possible further surgery. Patient verbalizes understanding and wishes to proceed. PLAN: right hallux metatarsophalangeal arthrodesis with possible medial sesamoidectomy. Scheduled for December 05 <Akbar Ladd MD - Last Filed: 11/22/24 09:03> Exam Const: General: alert and awake <Akbar Ladd MD - Last Filed: 11/22/24 09:03> Orientation/consciousness: patient oriented x3 <Akbar Ladd MD - Last Filed: 11/22/24 09:03> Limitations: no limitations <Akbar Ladd MD - Last Filed: 11/22/24 09:03> Extrem: Right lower extremity: ankle Details: tenderness Location: of the lateral malleolus and of the medial malleolus, swelling Details: laterally and posteriorly, abnormal ROM Details: pain with active ROM Details: with plantar flexion and with dorsiflexion and pain with passive ROM Details: with plantar flexion and with dorsiflexion, warmth and other (redness, laterally ); no ecchymosis and foot ( 2nd toe amputation) Details: abnormal to inspection, vascular exam Details: abnormal capillary refill Location: of all toes; dorsalis pedis pulse absent and posterior tibial pulse absent and motor-sensory exam Details: light-touch abnormal; abnormal capillary refill <Akbar Ladd MD - Last Filed: 11/22/24 09:03> Other: Wound on the dorsal lateral aspect of the right foot, dressing removed today. Additional wound at the side of the 2nd toe amputation fully healed. Wound depth 0.1 cm at the sinus tarsi. Wound length 3x1 cm. Minimal Serous drainage. improved granulation tissue over the sinus tarsi. Remainder of wound with 100% granulation tissue. No slough. <Akbar Ladd MD - Last Filed: 11/22/24 09:03> Psych: Mental Status: mental status grossly normal <Akbar Ladd MD - Last Filed: 11/22/24 09:03>
--- NOTE | 2024-11-29 10:35 | PM.IMHP ---
H&P: HPI History of Present Illness Date/Time: 11/29/24 10:35 Chief Complaint: Right diabetic foot ulcer with infection, hallux deformity Narrative: follow-up in [facility] outpatient [facility] for right diabetic foot infection. Notes no interim problems. Performing daily dressing changes. Complains of deformity of the hallux with difficulty with shoe wear and risk of infection. Review of Systems Constitutional: Constitutional: Denies chills and Denies fever(s) Eyes: Eyes: Reports no additional eye complaints and Denies change in vision ENT: Reports system reviewed and no additional complaints, except as documented and Reports Normal hearing present Cardiovascular: Cardiovascular: Denies chest pain, Denies diaphoresis, Denies leg ulcers and Denies dyspnea on exertion Respiratory: Respiratory: Reports no additional respiratory complaints, Denies cough and Denies dyspnea on exertion Gastrointestinal: Gastrointestinal: Reports no additional gastrointestinal complaints, Denies abdominal pain, Denies constipation, Denies nausea and Denies vomiting Genitourinary: Genitourinary: Reports no additional male genitourinary complaints, Denies hematuria and Denies urinary frequency Musculoskeletal: Musculoskeletal: Reports no additional musculoskeletal complaints and Reports as per HPI Integumentary/Breasts: Skin/Breast: Reports as per HPI, Reports lesions, Reports new lesions and Reports skin ulcer Neurologic: Reports Normal hearing present Endocrine: Endocrine: Reports no additional endocrine complaints, Denies change in body appearance, Denies excessive sweating, Denies polyphagia, Denies polydipsia and Denies polyuria PMF Past Medical History Medical History Bacteremia Erectile dysfunction associated with type 2 diabetes mellitus Obesity (BMI 30.0-34.9) Diabetic peripheral neuropathy Osteomyelitis of toe of left foot (2020) Left 5th toe Type 2 diabetes mellitus (~04/2021) Officially diagnosed in 2020 but patient already had a foot wound and osteomyelitis of the left toe at that time Ulcer of left fifth toe due to diabetes mellitus (04/2021) With associated cellulitis Glaucoma Surgical History Surgical History History of amputation of toe Left 5th toe History of ankle surgery Family History Family History Father Acute myocardial infarction, Onset Age: 62 Heart disease Tobacco use Mother , She in her 70s Brain cancer Lung cancer Carcinoma of colon Grandparent Diabetes mellitus Other Arthritis Hypertension Neuropathy Stomach cancer Social History Social History Social History: Patient is single and lives alone. He states he has never been . Patient works for a local [employer]. He has his (non biologic) son part-time. He is a lifelong nonsmoker. He denies history of significant alcohol use or illicit substance use. Code status: DNR/DNI (per patient request) Surrogate decision maker: Sole Farnsworth (niece) Smoking status: Never smoker Second hand tobacco smoke exposure: No Alcohol intake: current Alcohol use details: few per yeara Substance use: never Substance use type: does not use Do You Feel Safe in your Home?: Yes Lack of Transportation: No Lack of Food: Never True Current Housing: I Have Housing Concerned About Future Housing: No Difficulty Paying Gas/Electric Bills: No Difficulty Paying for Meds: No Currently Unemployed: No Education: High School Diploma/GED Difficulty w/ Childcare or Family Care: No Living arrangements: alone Additional living arrangements comments: Son 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 Occupation/Education: occupation Additional occupation/education comments: [employer] Gender identity (if verbalized by the patient): Male Spiritual care concerns: No Meds Home Medications and Allergies Home Medications Medication Instructions Recorded Confirmed Type insulin human U-100 NPH-regulr 15 unit subcut BID 08/08/24 11/25/24 History 70-30 mix 100 unit/mL subcutaneous susp (Novolin 70/30 U-100 Insulin) metformin 500 mg tablet,extended 500 mg PO BID 08/08/24 11/25/24 History release 24 hr dapagliflozin propanediol 10 mg 10 mg PO DAILY 11/25/24 11/25/24 History tablet (Farxiga) dulaglutide 0.75 mg/0.5 mL 0.75 mg subcut WEEKLY 11/25/24 11/25/24 History subcutaneous pen injector (Trulicity) ferrous sulfate 325 mg (65 mg 325 mg PO DAILY 11/25/24 11/25/24 History iron) tablet (FeroSul) lisinopril 10 mg tablet 10 mg PO .daily] 11/25/24 11/25/24 History Allergies Allergy/AdvReac Type Severity Reaction Status Date / Time No Known Allergies Allergy Verified 11/25/24 09:15 Exam Const: General: alert and awake Orientation/consciousness: patient oriented x3 Limitations: no limitations HENMT: Head: normal to inspection, normocephalic and atraumatic Eyes: Conjunctivae: conjunctivae normal Sclera: sclerae normal Resp: Effort & Inspection: normal respiratory effort and no audible wheezes Neuro: General: patient oriented x3 and No confusion Extrem: Right lower extremity: ankle Details: tenderness Location: of the lateral malleolus and of the medial malleolus, swelling Details: laterally and posteriorly, abnormal ROM Details: pain with active ROM Details: with plantar flexion and with dorsiflexion and pain with passive ROM Details: with plantar flexion and with dorsiflexion, warmth and other (redness, laterally ); no ecchymosis and foot ( 2nd toe amputation) Details: abnormal to inspection Details: other ( Hallux varus with claw toe formation, lesser toes with claw toe deformity), vascular exam Details: abnormal capillary refill Location: of all toes; dorsalis pedis pulse absent and posterior tibial pulse absent and motor-sensory exam Details: light-touch abnormal; abnormal capillary refill Other: Wound on the dorsal lateral aspect of the right foot, dressing removed today. Additional wound at the side of the 2nd toe amputation fully healed. Wound depth 0.1 cm at the sinus tarsi. Wound length 1x0.5 cm. Minimal Serous drainage. improved granulation tissue over the sinus tarsi. Remainder of wound with 100% granulation tissue. No slough. Psych: Mental Status: mental status grossly normal Affect: normal affect Assessment and Plan Assessment and plan (1) Septic arthritis of ankle and foot region: Code(s): M00.9 - Pyogenic arthritis, unspecified Status: Acute Assessment and Plan: 13 weeks status post I and D of right ankle and 2nd ray amputation. dressing change. Overall dimensions of the wound noted. No signs of worsening infection. Hypergranulation at the distal aspect which was treated with silver nitrate at last dressing. Continue with dressing changes daily. May start to wash on December 03. (2) Amputated toe of right foot: Code(s): S98.131A - Complete traumatic amputation of one right lesser toe, initial encounter Status: Acute Assessment and Plan: resultant hallux varus and degenerative changes. Discussed with patient. Indicated for MTP arthrodesis. Await healing foot. Wound Much improved. New radiographs show severe hallux varus and loss of the articular surface. Indicated for MTP arthrodesis and debulking of the plantar tissue including medial sesamoid. (3) Acute right ankle pain: Code(s): M25.571 - Pain in right ankle and joints of right foot Status: Acute (4) Bacteremia: Code(s): R78.81 - Bacteremia Status: Acute (5) Necrotizing fasciitis of lower leg: Code(s): M72.6 - Necrotizing fasciitis Status: Acute (6) Osteomyelitis of right foot: Qualifiers: Osteomyelitis type: other acute Qualified Code(s): M86.171 - Other acute osteomyelitis, right ankle and foot Code(s): M86.9 - Osteomyelitis, unspecified Status: Acute Plan Discussed nonoperative and operative treatment options with the patient. Risks and benefits of each as well as alternatives were reviewed. All of the patient's questions were answered. The risks of surgery reviewed including but not limited to: Neurovascular damage, wound complication, infection, blood clot, pulmonary embolus, stroke, myocardial infarction, and anesthetic risks up to and including . Continued pain and possible dysfunction were explained. Specific risks of the procedure including later recurrence of deformity. No guarantees were offered. If hardware used, discussed risk of failure/ breakage and possible need for removal. If complications occur, the patient understands the need for further treatment, possible further surgery. Patient verbalizes understanding and wishes to proceed. PLAN: right hallux metatarsophalangeal arthrodesis with possible medial sesamoidectomy. Scheduled for December 05
--- NOTE | 2024-12-10 08:52 | P.PNOP_ITS ---
Progress Note: A&P Assessment and Plan (1) Osteomyelitis of right foot: Qualifiers: Osteomyelitis type: other acute Qualified Code(s): M86.171 - Other acute osteomyelitis, right ankle and foot Code(s): M86.9 - Osteomyelitis, unspecified Status: Acute Assessment and Plan: POD #5: RT hallux mtp arthrodesis Patient doing well. Pain well controlled. Incision well approximated. No signs of infection. Patient indicated for TCC application to protect surgical site and allow for PWB on the heel. TCC applied, tolerated well. Patient to return to [facility] wound clinic in 1 week for reevalaution. Patient to present to outpatient orthopedic clinic today for new radiographs as recommended by Dr. Ladd. (2) Type 2 diabetes mellitus, with long-term current use of insulin: Qualifiers: Diabetes mellitus complication status: with neurologic complications Diabetes mellitus complication detail: with polyneuropathy Qualified Code(s): E11.42 - Type 2 diabetes mellitus with diabetic polyneuropathy; Z79.4 - care home (current) use of insulin Code(s): E11.9 - Type 2 diabetes mellitus without complications; Z79.4 - care home (current) use of insulin Status: Acute Assessment and Plan: Discussed importance of proper nutrition, diabetic diet and medication compliance for optimal healing. Reviewed signs and symptoms of infection including fever, chills, night sweats, nausea, vomiting, diarrhea, changes to the wound bed or purulent drainage to report to the ED immediately. Patient verbalized understanding. (3) Septic arthritis of ankle and foot region: Code(s): M00.9 - Pyogenic arthritis, unspecified Status: Acute Assessment and Plan: Resolved. Time Spent With Patient Time with patient: 25 - 35 minutes Subjective Subjective Date/Time Seen: 12/10/24 08:53 Post Op day: 5 Principal diagnosis: RT hallux mtp arthrodesis Interval history: POD #5: RT hallux mtp arthrodesis Patient f/u in the [facility] wound clinic. He reports well controlled pain. No complaints of nausea, vomiting, diarrhea, constipation or urinary retention. Well controlled BG levels s/p surgery. Maintaining NWB RLE. Review of Systems Review of Systems: All systems reviewed & are unremarkable except as noted in HPI and below Exam Const: General: alert and awake Orientation/consciousness: patient oriented x3 Limitations: no limitations HENMT: Head: normal to inspection, normocephalic and atraumatic Eyes: Conjunctivae: conjunctivae normal Sclera: sclerae normal Resp: Effort & Inspection: normal respiratory effort and no audible wheezes Neuro: General: patient oriented x3 and No confusion Extrem: Right lower extremity: ankle Details: tenderness Location: of the lateral malleolus and of the medial malleolus, swelling Details: laterally and posteriorly, abnormal ROM Details: pain with active ROM Details: with plantar flexion and with dorsiflexion and pain with passive ROM Details: with plantar flexion and with dorsiflexion, warmth and other (redness, laterally ); no ecchymosis and foot ( 2nd toe amputation) Details: vascular exam Details: abnormal capillary refill Location: of all toes; dorsalis pedis pulse absent and posterior tibial pulse absent and motor-sensory exam Details: light-touch abnormal; abnormal capillary refill and no tenderness Other: Hallux incision well approximated. No redness. Moderate swelling. Palpable pedal pulses. Additional wound at the side of the 2nd toe amputation fully healed. Wound on the dorsal lateral aspect of the right foot with significant improvement in dimensions. See [facility] wound clinic note for dimensions. Minimal Serous drainage. Psych: Mental Status: mental status grossly normal Affect: normal affect Objective Data Meds/Results Medications: Active Medications Generic Name Dose Route Start Last Admin Trade Name Freq PRN Reason Stop Dose Admin Silver Nitrate 1 each 11/19/24 08:30 Silver Nitrate (*Sp) Stick TOPICAL PRN PRN Wound Care Fracture/Casting/Strapping Pre Procedure Consent was obtained, Procedures/risks were explained, Questions were answered, Correct patient identified and Correct side and site confirmed Episode of Care New episode (Right Foot ) Casting Cast: Total Contact Leg Cast Modification and Status: Diabetic Application Exam of Affected Area: Color: Normal, Temp: Normal, Pulse: Normal, Blanching: Normal, Capillary Refill: Normal and Sensory Exam: Abnormal (neuropathy ) Swelling: Yes and Tenderness: No Skin Apperance: Clean and Dry and Open Care: Alcohol Wipes Patient Tolerated Procedure Well: Yes Post Procedure Patient tolerated the procedure well?: Tolerated procedure well
--- NOTE | 2024-12-17 08:53 | PM.PNORT ---
Progress Note: A&P Assessment and Plan (1) Osteomyelitis of right foot: Qualifiers: Osteomyelitis type: other acute Qualified Code(s): M86.171 - Other acute osteomyelitis, right ankle and foot Code(s): M86.9 - Osteomyelitis, unspecified Status: Acute Assessment and Plan: 1 week, 5 days s/p RT hallux mtp arthrodesis Patient doing well. Pain well controlled. Incision well approximated. No signs of infection. Patient indicated for repeat TCC application to protect surgical site and allow for PWB on the heel. TCC applied, tolerated well. Patient to return to [facility] wound clinic in 1 week for reevaluation. Patient to present to outpatient orthopedic clinic today for new radiographs as recommended by Dr. Ladd. 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 Reviewed signs and symptoms of infection including fever, chills, night sweats, nausea, vomiting, diarrhea, changes to the wound bed or purulent drainage to report to the ED immediately. Patient verbalized understanding. (3) Septic arthritis of ankle and foot region: Code(s): M00.9 - Pyogenic arthritis, unspecified Status: Acute Assessment and Plan: Resolved. Time Spent With Patient Time with patient: 25 - 35 minutes Subjective Subjective Date/Time Seen: 12/17/24 08:53 Post Op day: 5 Principal diagnosis: RT hallux mtp arthrodesis Interval history: 1 week, 5 days s/p RT hallux mtp arthrodesis Patient f/u in the [facility] wound clinic. He reports well controlled pain. No complaints of nausea, vomiting, diarrhea, constipation or urinary retention. Well controlled BG levels s/p surgery. Maintaining PWB RLE. Review of Systems Review of Systems: All systems reviewed & are unremarkable except as noted in HPI and below Exam Const: General: alert and awake Orientation/consciousness: patient oriented x3 Limitations: no limitations HENMT: Head: normal to inspection, normocephalic and atraumatic Eyes: Conjunctivae: conjunctivae normal Sclera: sclerae normal Resp: Effort & Inspection: normal respiratory effort and no audible wheezes Neuro: General: patient oriented x3 and No confusion Extrem: Right lower extremity: ankle Details: tenderness Location: of the lateral malleolus and of the medial malleolus, swelling Details: laterally and posteriorly, abnormal ROM Details: pain with active ROM Details: with plantar flexion and with dorsiflexion and pain with passive ROM Details: with plantar flexion and with dorsiflexion, warmth and other (redness, laterally ); no ecchymosis and foot ( 2nd toe amputation) Details: vascular exam Details: abnormal capillary refill Location: of all toes; dorsalis pedis pulse absent and posterior tibial pulse absent and motor-sensory exam Details: light-touch abnormal; abnormal capillary refill and no tenderness Other: Hallux incision well approximated. No redness. Moderate swelling. Palpable pedal pulses. Additional wound at the side of the 2nd toe amputation fully healed. Wound on the dorsal lateral aspect of the right foot with significant improvement in dimensions. See [facility] wound clinic note for dimensions. Minimal Serous drainage. Psych: Mental Status: mental status grossly normal Affect: normal affect Objective Data Meds/Results Medications: Active Medications Generic Name Dose Route Start Last Admin Trade Name Freq PRN Reason Stop Dose Admin Silver Nitrate 1 each 11/19/24 08:30 Silver Nitrate (*Sp) Stick TOPICAL PRN PRN Wound Care Fracture/Casting/Strapping Pre Procedure Consent was obtained, Procedures/risks were explained, Questions were answered, Correct patient identified and Correct side and site confirmed Episode of Care Return Visit (Right Foot ) Casting Cast: Total Contact Leg Cast Modification and Status: Diabetic Application Exam of Affected Area: Color: Normal, Temp: Normal, Pulse: Normal, Blanching: Normal, Capillary Refill: Normal and Sensory Exam: Abnormal (neuropathy ) Swelling: Yes and Tenderness: No Skin Apperance: Clean and Dry and Open Care: Alcohol Wipes Patient Tolerated Procedure Well: Yes Post Procedure Patient tolerated the procedure well?: Tolerated procedure well
--- NOTE | 2024-12-24 09:37 | P.PNOP_ITS ---
Progress Note: A&P Assessment and Plan (1) Osteomyelitis of right foot: Qualifiers: Osteomyelitis type: other acute Qualified Code(s): M86.171 - Other acute osteomyelitis, right ankle and foot Code(s): M86.9 - Osteomyelitis, unspecified Status: Acute Assessment and Plan: 2 weeks, 5 days s/p RT hallux mtp arthrodesis Patient doing well. Pain well controlled. Incision well approximated. Sutures removed. No signs of infection. Transition to fracture boot. PWB on heel. Patient to return to [facility] wound clinic in 1 week for reevaluation. 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 Reviewed signs and symptoms of infection including fever, chills, night sweats, nausea, vomiting, diarrhea, changes to the wound bed or purulent drainage to report to the ED immediately. Patient verbalized understanding. (3) Septic arthritis of ankle and foot region: Code(s): M00.9 - Pyogenic arthritis, unspecified Status: Acute Assessment and Plan: Resolved. Time Spent With Patient Time with patient: 25 - 35 minutes Subjective Subjective Date/Time Seen: 12/24/24 09:37 Principal diagnosis: RT hallux mtp arthrodesis Interval history: 2 weeks, 5 days s/p RT hallux mtp arthrodesis Patient f/u in the [facility] wound clinic. He reports well controlled pain. No complaints of nausea, vomiting, diarrhea, constipation or urinary retention. Well controlled BG levels s/p surgery. Maintaining PWB RLE. Review of Systems Review of Systems: All systems reviewed & are unremarkable except as noted in HPI and below Exam Const: General: alert and awake Orientation/consciousness: patient oriented x3 Limitations: no limitations HENMT: Head: normal to inspection, normocephalic and atraumatic Eyes: Conjunctivae: conjunctivae normal Sclera: sclerae normal Resp: Effort & Inspection: normal respiratory effort and no audible wheezes Neuro: General: patient oriented x3 and No confusion Extrem: Right lower extremity: ankle Details: tenderness Location: of the lateral malleolus and of the medial malleolus, swelling Details: laterally and posteriorly, abnormal ROM Details: pain with active ROM Details: with plantar flexion and with dorsiflexion and pain with passive ROM Details: with plantar flexion and with dorsiflexion, warmth and other (redness, laterally ); no ecchymosis and foot ( 2nd toe amputation) Details: vascular exam Details: abnormal capillary refill Location: of all toes; dorsalis pedis pulse absent and posterior tibial pulse absent and motor-sensory exam Details: light-touch abnormal; abnormal capillary refill and no tenderness Other: Hallux incision well approximated. Sutures removed. No redness. Moderate swelling. Palpable pedal pulses. Additional wound at the side of the 2nd toe amputation fully healed. Wound on the dorsal lateral aspect of the right foot with significant improvement in dimensions. See [facility] wound clinic note for dimensions. Minimal Serous drainage. Psych: Mental Status: mental status grossly normal Affect: normal affect Objective Data Meds/Results Medications: Active Medications Generic Name Dose Route Start Last Admin Trade Name Freq PRN Reason Stop Dose Admin Silver Nitrate 1 each 11/19/24 08:30 Silver Nitrate (*Sp) Stick TOPICAL PRN PRN Wound Care
--- NOTE | 2024-12-27 08:38 | PM.PNORT ---
Progress Note: A&P Assessment and Plan (1) Osteomyelitis of right foot: Qualifiers: Osteomyelitis type: other acute Qualified Code(s): M86.171 - Other acute osteomyelitis, right ankle and foot Code(s): M86.9 - Osteomyelitis, unspecified Status: Acute Assessment and Plan: 3 weeks, 1 day s/p RT hallux mtp arthrodesis Patient doing well. Pain well controlled. Incision well approximated. No signs of infection. Fracture boot. PWB on heel. Patient to return to [facility] wound clinic in 1 week for reevaluation. 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 Reviewed signs and symptoms of infection including fever, chills, night sweats, nausea, vomiting, diarrhea, changes to the wound bed or purulent drainage to report to the ED immediately. Patient verbalized understanding. (3) Septic arthritis of ankle and foot region: Code(s): M00.9 - Pyogenic arthritis, unspecified Status: Acute Assessment and Plan: Resolved. Time Spent With Patient Time with patient: 25 - 35 minutes Subjective Subjective Date/Time Seen: 12/27/24 08:38 Post Op day: 22 days Principal diagnosis: RT DFU Interval history: 3 weeks s/p hallux mtp arthrodesis. Sutures removed at last visit. Has been in boot Exam Const: General: alert and awake Orientation/consciousness: patient oriented x3 Limitations: no limitations Eyes: Conjunctivae: conjunctivae normal Sclera: sclerae normal Resp: Effort & Inspection: normal respiratory effort and no audible wheezes Neuro: General: patient oriented x3 and No confusion Extrem: Right lower extremity: ankle Details: tenderness Location: of the lateral malleolus and of the medial malleolus, swelling Details: laterally and posteriorly, abnormal ROM Details: pain with active ROM Details: with plantar flexion and with dorsiflexion and pain with passive ROM Details: with plantar flexion and with dorsiflexion, warmth and other (redness, laterally ); no ecchymosis and foot ( 2nd toe amputation) Details: vascular exam Details: abnormal capillary refill Location: of all toes; dorsalis pedis pulse absent and posterior tibial pulse absent and motor-sensory exam Details: light-touch abnormal; abnormal capillary refill and no tenderness Other: Hallux incision well approximated. No redness. Moderate swelling. Palpable pedal pulses. Wound at the side of the 2nd toe amputation fully healed. Wound on the dorsal lateral aspect of the right foot with significant improvement in dimensions. Minimal Serous drainage. Psych: Mental Status: mental status grossly normal Affect: normal affect Objective Data Meds/Results Medications: Active Medications Generic Name Dose Route Start Last Admin Trade Name Freq PRN Reason Stop Dose Admin Silver Nitrate 1 each 11/19/24 08:30 Silver Nitrate (*Sp) Stick TOPICAL PRN PRN Wound Care
--- NOTE | 2025-01-03 08:44 | PM.PNORT ---
Progress Note: A&P Assessment and Plan (1) Osteomyelitis of right foot: Qualifiers: Osteomyelitis type: other acute Qualified Code(s): M86.171 - Other acute osteomyelitis, right ankle and foot Code(s): M86.9 - Osteomyelitis, unspecified Status: Acute Assessment and Plan: 4 weeks, 1 day s/p RT hallux MTP arthrodesis Patient doing well. Pain well controlled. Incision well approximated. No signs of infection. Fracture boot. PWB on heel. Patient to return the outpatient orthopedic clinic in 2 weeks for reevaluation/new XR. (2) Type 2 diabetes mellitus, with long-term current use of insulin: Qualifiers: Diabetes mellitus complication status: with neurologic complications Diabetes mellitus complication detail: with polyneuropathy Qualified Code(s): E11.42 - Type 2 diabetes mellitus with diabetic polyneuropathy; Z79.4 - senior care (current) use of insulin Code(s): E11.9 - Type 2 diabetes mellitus without complications; Z79.4 - intermediate accountant (current) use of insulin Status: Acute Assessment and Plan: Discussed importance of proper nutrition, diabetic diet and medication compliance for optimal healing. Reviewed signs and symptoms of infection including fever, chills, night sweats, nausea, vomiting, diarrhea, changes to the wound bed or purulent drainage to report to the ED immediately. Patient verbalized understanding. (3) Septic arthritis of ankle and foot region: Code(s): M00.9 - Pyogenic arthritis, unspecified Status: Acute Assessment and Plan: Resolved. Time Spent With Patient Time with patient: 25 - 35 minutes Subjective Subjective Date/Time Seen: 01/03/25 08:44 Principal diagnosis: RT DFU Interval history: 4 weeks, 1 day s/p hallux MTP arthrodesis. Tolerating boot well. Review of Systems Review of Systems: All systems reviewed & are unremarkable except as noted in HPI and below Exam Const: General: alert and awake Orientation/consciousness: patient oriented x3 Limitations: no limitations Eyes: Conjunctivae: conjunctivae normal Sclera: sclerae normal Resp: Effort & Inspection: normal respiratory effort and no audible wheezes Neuro: General: patient oriented x3 and No confusion Extrem: Right lower extremity: ankle Details: tenderness Location: of the lateral malleolus and of the medial malleolus, swelling Details: laterally and posteriorly, abnormal ROM Details: pain with active ROM Details: with plantar flexion and with dorsiflexion and pain with passive ROM Details: with plantar flexion and with dorsiflexion, warmth and other (redness, laterally ); no ecchymosis and foot ( 2nd toe amputation) Details: vascular exam Details: abnormal capillary refill Location: of all toes; dorsalis pedis pulse absent and posterior tibial pulse absent and motor-sensory exam Details: light-touch abnormal; abnormal capillary refill and no tenderness Other: Hallux incision well approximated. No redness. Moderate swelling. Palpable pedal pulses. Wound at the side of the 2nd toe amputation fully healed. Wound on the dorsal lateral aspect of the right foot fully healed. Psych: Mental Status: mental status grossly normal Affect: normal affect Objective Data Meds/Results Medications: Active Medications Generic Name Dose Route Start Last Admin Trade Name Freq PRN Reason Stop Dose Admin Silver Nitrate 1 each 11/19/24 08:30 Silver Nitrate (*Sp) Stick TOPICAL PRN PRN Wound Care
== END 2025-02-03 09:48 | disposition home or self-care (01) ==
LOC: ANHWOC 07:06
PROVIDERS: Visit Provider Nurse Practitioner Family
DX: E11.621 Type 2 diabetes mellitus with foot ulcer (principal); R78.81 Bacteremia; M25.571 Pain in right ankle and joints of right foot; R11.0 Nausea; E11.628 Type 2 diabetes mellitus with other skin complications; Z79.4 Long term (current) use of insulin; S98.131A Complete traumatic amputation of one right lesser toe, initial encounter; M00.9 Pyogenic arthritis, unspecified; M72.6 Necrotizing fasciitis; M86.171 Other acute osteomyelitis, right ankle and foot; L97.519 Non-pressure chronic ulcer of other part of right foot with unspecified severity
CPT/HCPCS: 29445; 99213; G0463